=== PATIENT | male | born 1945 | race Caucasian/White ===

== ENCOUNTER 2020-09-08 10:49 | Inpatient (IN) | payer MEDICARE, OTHER ==
--- NOTE | 2020-09-08 11:09 | ED ---
General Adult HPI - General Chief complaint: Shortness of Breath Stated complaint: FELIX Time Seen by Provider: 09/08/20 10:50 Source: patient, EMS, RN notes reviewed, old records reviewed Mode of arrival: EMS Limitations: no limitations - History of Present Illness Initial comments: This is a 74-year-old male who presents emergency department with past medical history significant for ventral hernia. Patient denies any heart history patient denies any breathing problem. Patient stated he felt a little lightheadedness nose EMS was there. Per EMS when fire arrived the patient was having some agonal breathing and they were bagging the patient after about 5 minutes of bagging the patient became much more alert and oriented. Patient denies any chest pain he does state he feels short of breath he denies any fever chills or cough. He states his had COVID 6 weeks ago. Patient denies any abdominal pain he does have a hernia that is chronic. Patient denies any back pain. Patient denies any dysuria or frequency. - Related Data Home Medications Medication Instructions Recorded Confirmed Levothyroxine Sodium [Synthroid] 112 mcg PO DAILY 09/08/20 09/08/20 Spironolactone 100 mg PO DAILY 09/08/20 09/08/20 Zinc 50 mg PO DAILY 09/08/20 09/08/20 Allergies Allergy/AdvReac Type Severity Reaction Status Date / Time cephalexin [From Keflex] Allergy Rash/Hives Verified 09/08/20 12:31 Penicillins Allergy Anaphylaxis Verified 09/08/20 12:31 Review of Systems ROS Statement: Those systems with pertinent positive or pertinent negative responses have been documented in the HPI. ROS Other: All systems not noted in ROS Statement are negative. Past Medical History Past Medical History: Hyperlipidemia History of Any Multi-Drug Resistant Organisms: None Reported Past Psychological History: No Psychological Hx Reported Smoking Status: Never smoker Past Alcohol Use History: None Reported Past Drug Use History: None Reported General Exam - General Exam Comments Initial Comments: GENERAL: Patient is well-developed and well-nourished. Patient is nontoxic and well-hy drated and is in mild distress. Patient is on BiPAP currently ENT: Neck is soft and supple. No significant lymphadenopathy is noted. Oropharynx is clear. Moist mucous membranes. Neck has full range of motion without eliciting any pain. EYES: The sclera were anicteric and conjunctiva were pink and moist. Extraocular movements were intact and pupils were equal round and reactive to light. Eyelids were unremarkable. PULMONARY: Unlabored respirations. Good breath sounds bilaterally. No audible rales rhonchi or wheezing was noted. CARDIOVASCULAR: There is a regular rate and rhythm without any murmurs gallops or rubs. ABDOMEN: Soft and nontender with normal bowel sounds. Patient has a large ventral hernia SKIN: Skin is clear with no lesions or rashes and otherwise unremarkable. NEUROLOGIC: Patient is alert and oriented x3. Cranial nerves II through XII are grossly intact. Motor and sensory are also intact. Normal speech, volume and content. Symmetrical smile. MUSCULOSKELETAL: Normal extremities with adequate strength and full range of motion. No lower extremity swelling or edema. No calf tenderness. LYMPHATICS: No significant lymphadenopathy is noted PSYCHIATRIC: Normal psychiatric evaluation. Limitations: no limitations Course Vital Signs 09/08/20 09/08/20 09/08/20 10:51 11:33 12:00 Temperature 97.5 F L Pulse Rate 49 L 52 L 52 L Respiratory 22 22 26 H Rate Blood Pressure 136/62 115/55 119/58 O2 Sat by Pulse 93 L 97 97 Oximetry 09/08/20 09/08/20 09/08/20 12:30 13:00 13:30 Temperature Pulse Rate 52 L 51 L 40 L Respiratory 31 H 28 H 26 H Rate Blood Pressure 128/63 122/61 111/65 O2 Sat by Pulse 98 95 58 L Oximetry 09/08/20 09/08/20 13:50 14:01 Temperature Pulse Rate 81 47 L Respiratory 22 20 Rate Blood Pressure 83/55 105/49 O2 Sat by Pulse 43 L 84 L Oximetry Procedures - Intubation Sedative: Versed Paralytic: Succinylcholine Laryngoscope: Lopez Size: 3 ET Tube Size: 8 ET Tube Uncuffed: No Tube Secured Location: teeth Tube Placement Confirmation: visualized tube passing through cords, equal breath sounds bilaterally, no breath sounds over epigastrium, confirmation by capnometry Patient Tolerated Procedure: well Intubation Complications: none - Sepsis Sepsis Focused Exam #1 Time Sepsis Criteria Met: : Sepsis Focused Exam Date: 09/08/20 Sepsis Focused Exam Time: 13:21 Sepsis Focused Exam Complete: Yes Vital Signs & RN Notes Reviewed: Yes Capillary Refill: > 2 Seconds: Fingers Peripheral Pulses: Normal: Radial (R) Skin Color: Normal for Patient Respiratory Exam: normal lung sounds Cardiovascular Exam: regular rate, bradycardia Medical Decision Making - Medical Decision Making EKG shows a junctional rhythm at 40 bpm MN interval is 112 QRS is 498 QTC is 444. EKG shows no ST segment elevation or depression Chest x-ray shows bilateral pneumonia with pleural effusion and some pulmonary edema. Patient is septic I started the patient on Levaquin. I also gave the patient 2500 mL of fluid. I spoke with sound physicians agreed to admit the patient admitted the patient I continued Levaquin on the floor. Patient was admitted and sound physician's came down and saw the patient. At 1335 hrs. called into the room because the patient's heart rate dropped I did an EKG EKG showed a sinus rhythm however it was complete heart block at a rate of 36 bpm QRS is 114 QT interval is 586 QTC is 453. Patient's EKG shows no ST segment elevation or depression. At this point time I tried atropine and started the patient on a dopamine drip. Patient began to be oxygenate and become altered mentally so I placed the patient in the trauma bay and intubated the patient. - Lab Data Result diagrams: 09/08/20 11:05 09/08/20 11:27 Lab Results 09/08/20 09/08/20 09/08/20 Range/Units 11:05 11:07 11:27 WBC 34.6 H (3.8-10.6) k/uL RBC 4.87 (4.30-5.90) m/uL Hgb 15.3 (13.0-17.5) gm/dL Hct 49.5 (39.0-53.0) % MCV 101.5 H (80.0-100.0) fL MCH 31.4 (25.0-35.0) pg MCHC 30.9 L (31.0-37.0) g/dL RDW 13.8 (11.5-15.5) % Plt Count 320 (150-450) k/uL MPV 8.0 Neutrophils % (Manual) 77 % Band Neuts % (Manual) 5 % Lymphocytes % (Manual) 14 % Monocytes % (Manual) 4 % Metamyelocytes % 1 % Myelocytes % 1 % Neutrophils # (Manual) 28.30 H (1.3-7.7) k/uL Lymphocytes # (Manual) 4.84 H (1.0-4.8) k/uL Monocytes # (Manual) 1.38 H (0-1.0) k/uL Metamyelocytes # (Man) 0.35 H (0) k/uL Myelocytes # (Manual) 0.35 H (0) k/uL Nucleated RBCs 0 (0-0) /100 WBC Manual Slide Review Performed Toxic Vacuolation Present Hypochromasia Slight Macrocytosis Slight PT 10.7 (9.0-12.0) sec INR 1.0 (<1.2) APTT 25.7 (22.0-30.0) sec Sodium (137-145) mmol/L Potassium (3.5-5.1) mmol/L Chloride (98-107) mmol/L Carbon Dioxide (22-30) mmol/L Anion Gap mmol/L BUN (9-20) mg/dL Creatinine (0.66-1.25) mg/dL Est GFR (CKD-EPI)AfAm (>60 ml/min/1.73 sqM) Est GFR (CKD-EPI)NonAf (>60 ml/min/1.73 sqM) Glucose (74-99) mg/dL Lactic Ac Sepsis Rflx Plasma Lactic Acid Romain (0.7-2.0) mmol/L Calcium (8.4-10.2) mg/dL Magnesium (1.6-2.3) mg/dL Total Bilirubin (0.2-1.3) mg/dL AST (17-59) U/L ALT (4-49) U/L Alkaline Phosphatase (38-126) U/L Troponin I (0.000-0.034) ng/mL NT-Pro-B Natriuret Pep pg/mL Total Protein (6.3-8.2) g/dL Albumin (3.5-5.0) g/dL Coronavirus (PCR) Not Detected (Not Detectd) 09/08/20 09/08/20 09/08/20 Range/Units 11:27 11:27 11:27 WBC (3.8-10.6) k/uL RBC (4.30-5.90) m/uL Hgb (13.0-17.5) gm/dL Hct (39.0-53.0) % MCV (80.0-100.0) fL MCH (25.0-35.0) pg MCHC (31.0-37.0) g/dL RDW (11.5-15.5) % Plt Count (150-450) k/uL MPV Neutrophils % (Manual) % Band Neuts % (Manual) % Lymphocytes % (Manual) % Monocytes % (Manual) % Metamyelocytes % % Myelocytes % % Neutrophils # (Manual) (1.3-7.7) k/uL Lymphocytes # (Manual) (1.0-4.8) k/uL Monocytes # (Manual) (0-1.0) k/uL Metamyelocytes # (Man) (0) k/uL Myelocytes # (Manual) (0) k/uL Nucleated RBCs (0-0) /100 WBC Manual Slide Review Toxic Vacuolation Hypochromasia Macrocytosis PT (9.0-12.0) sec INR (<1.2) APTT (22.0-30.0) sec Sodium (137-145) mmol/L Potassium (3.5-5.1) mmol/L Chloride (98-107) mmol/L Carbon Dioxide (22-30) mmol/L Anion Gap mmol/L BUN (9-20) mg/dL Creatinine (0.66-1.25) mg/dL Est GFR (CKD-EPI)AfAm (>60 ml/min/1.73 sqM) Est GFR (CKD-EPI)NonAf (>60 ml/min/1.73 sqM) Glucose (74-99) mg/dL Lactic Ac Sepsis Rflx Plasma Lactic Acid Romain 6.9 H* (0.7-2.0) mmol/L Calcium (8.4-10.2) mg/dL Magnesium (1.6-2.3) mg/dL Total Bilirubin (0.2-1.3) mg/dL AST (17-59) U/L ALT (4-49) U/L Alkaline Phosphatase (38-126) U/L Troponin I 0.144 H* (0.000-0.034) ng/mL NT-Pro-B Natriuret Pep 34184 pg/mL Total Protein (6.3-8.2) g/dL Albumin (3.5-5.0) g/dL Coronavirus (PCR) (Not Detectd) 12/26/20 12/26/20 Range/Units 11:27 11:54 WBC (3.8-10.6) k/uL RBC (4.30-5.90) m/uL Hgb (13.0-17.5) gm/dL Hct (39.0-53.0) % MCV (80.0-100.0) fL MCH (25.0-35.0) pg MCHC (31.0-37.0) g/dL RDW (11.5-15.5) % Plt Count (150-450) k/uL MPV Neutrophils % (Manual) % Band Neuts % (Manual) % Lymphocytes % (Manual) % Monocytes % (Manual) % Metamyelocytes % % Myelocytes % % Neutrophils # (Manual) (1.3-7.7) k/uL Lymphocytes # (Manual) (1.0-4.8) k/uL Monocytes # (Manual) (0-1.0) k/uL Metamyelocytes # (Man) (0) k/uL Myelocytes # (Manual) (0) k/uL Nucleated RBCs (0-0) /100 WBC Manual Slide Review Toxic Vacuolation Hypochromasia Macrocytosis PT (9.0-12.0) sec INR (<1.2) APTT (22.0-30.0) sec Sodium 128 L (137-145) mmol/L Potassium 4.8 (3.5-5.1) mmol/L Chloride 98 (98-107) mmol/L Carbon Dioxide 11 L (22-30) mmol/L Anion Gap 19 mmol/L BUN 30 H (9-20) mg/dL Creatinine 2.24 H (0.66-1.25) mg/dL Est GFR (CKD-EPI)AfAm 32 (>60 ml/min/1.73 sqM) Est GFR (CKD-EPI)NonAf 28 (>60 ml/min/1.73 sqM) Glucose 269 H (74-99) mg/dL Lactic Ac Sepsis Rflx Y Plasma Lactic Acid Romain (0.7-2.0) mmol/L Calcium 9.2 (8.4-10.2) mg/dL Magnesium 2.3 (1.6-2.3) mg/dL Total Bilirubin 1.0 (0.2-1.3) mg/dL AST 65 H (17-59) U/L ALT 53 H (4-49) U/L Alkaline Phosphatase 101 (38-126) U/L Troponin I (0.000-0.034) ng/mL NT-Pro-B Natriuret Pep pg/mL Total Protein 7.2 (6.3-8.2) g/dL Albumin 3.9 (3.5-5.0) g/dL Coronavirus (PCR) (Not Detectd) Critical Care Time Critical Care Time: Yes Total Critical Care Time: 50 Disposition Clinical Impression: Pneumonia, Pulmonary edema, Elevated troponin, Sepsis, Third degree heart block, Respiratory distress Disposition: ADMITTED IP TO THIS HOSP Time of Disposition: 13:19
[2020-09-08 11:20] LABS: HCT 49.5 % (39.0-53.0); HGB 15.3 gm/dL (13.0-17.5); Hypochromasia Slight; MCH 31.4 pg (25.0-35.0); MCHC 30.9 g/dL (31.0-37.0); MCV 101.5 fL (80.0-100.0); Macrocytosis Slight; Platelet Count 320 k/uL (150-450); RBC 4.87 m/uL (4.30-5.90); RDW 13.8 % (11.5-15.5); WBC 34.6 k/uL (3.8-10.6)
[2020-09-08 11:37] LABS: Band Neutrophils % 5 %; Lymphocytes # (M) 4.84 k/uL (1.0-4.8); Metamyelocytes # (M) 0.35 k/uL (0); Metamyelocytes % 1 %; Monocytes # (M) 1.38 k/uL (0-1.0); Myelocytes # (M) 0.35 k/uL (0); Myelocytes % 1 %; Neutrophils % (M) 77 %; Nucleated Red Blood Cells 0 /100 WBC (0-0); Total Cells Counted 200
[2020-09-08 11:38] LABS: Toxic Vacuolation Present
--- NOTE | 2020-09-08 11:41 | XR ---
EXAMINATION TYPE: XR chest 1V portable DATE OF EXAM: 09/08/2020 Comparison: None Clinical History: 74-year-old male shortness of breath, difficulty breathing Findings: Heart normal size. Patchy and confluent bilateral airspace opacity, left greater than right. No sizab le effusion. Impression: Patchy and confluent left greater than right bilateral airspace disease. Correlate for pulmonary hussain a or multifocal pneumonia.
[2020-09-08 11:51] LABS: Albumin 3.9 g/dL (3.5-5.0); Calcium 9.2 mg/dL (8.4-10.2); Magnesium 2.3 mg/dL (1.6-2.3); Potassium 4.8 mmol/L (3.5-5.1); Total Protein 7.2 g/dL (6.3-8.2)
[2020-09-08 11:54] LABS: Partial Thromboplastin Time 25.7 sec (22.0-30.0); Prothrombin Time 10.7 sec (9.0-12.0)
[2020-09-08] MEDS ORDERED: SODIUM CHLORIDE 0.9% 2,500 ML IV STA (12:00)
[2020-09-08] MEDS ORDERED: LEVOFLOXACIN 750MG-D5W PMX 750 MG in DEXTROSE/WATER 1 150ML.BAG IVPB STA (12:14)
[2020-09-08] MEDS ORDERED: LEVOFLOXACIN 750MG-D5W PMX 750 MG in DEXTROSE/WATER 1 150ML.BAG IVPB SCH (12:15)
[2020-09-08] MEDS ORDERED: FUROSEMIDE 10 MG/ML 2 ML VIAL IV ONE (12:46)
[2020-09-08] MEDS ORDERED: PNEUMONIA PROTOCOL UTILIZED 1 EACH MISC PO PRN (13:32)
[2020-09-08] MEDS ORDERED: VANCOMYCIN IV PER PHARMACY 1 EACH MISC MISCELLANE PRN (13:32)
[2020-09-08] MEDS ORDERED: DOPamine DRIP 800 MG in WATER FOR INJECTION 1 250ML.BAG IV SCH (13:45)
[2020-09-08] MEDS ORDERED: ATROPINE SULFATE 0.1 MG/ML 10ML SYRINGE IV STA (13:48)
[2020-09-08] MEDS ORDERED: SUCCINYLCHOLINE CHLORIDE VIAL 200 MG/10 ML VIAL IV STA (13:55)
--- NOTE | 2020-09-08 14:18 | XR ---
EXAMINATION TYPE: XR chest 1V portable DATE OF EXAM: 09/08/2020 COMPARISON: Today HISTORY: Short of breath TECHNIQUE: FINDINGS: There is severe pulmonary airspace edema around the pulmonary dimitrios. Heart size is normal. E ndotracheal tube is 2.5 cm from the neftali. There is nasogastric tube in the stomach. IMPRESSION: Severe pulmonary edema is increased compared to exam 3 hours ago.
[2020-09-08] MEDS ORDERED: MIDAZOLAM 1 MG/ML 5 ML VIAL IV STA (14:26)
[2020-09-08] MEDS: NOREPINEPHRINE 4 MG in SODIUM CHLORIDE 0.9% 250 ML IV SCH (14:41)
[2020-09-08 14:57] LABS: ABG Base Excess -18.6 mmol/L; ABG HCO3 14 mmol/L (21-25); ABG Oxygen Saturation 64.7 % (94-97); ABG PCO2 61 mmHg (35-45); ABG TCO2 15 mmol/L (19-24); Allen Test Performed? Yes
[2020-09-08 15:03] LABS: ABG PH 6.95 (7.35-7.45); ABG PO2 53 mmHg (83-108)
[2020-09-08] MEDS ORDERED: LIDOCAINE 1% INJ 10MG/ML (20 ML MDV) ONE (15:04)
[2020-09-08] MEDS ORDERED: IV FLUID CONTINUATION 900 ML IV ONE (15:30)
[2020-09-08] MEDS ORDERED: DEXTROSE 5% IN WATER 1,000 ML with SODIUM BICARB (1 MEQ/ML) 150 ML IV ONE (15:30)
[2020-09-08] MEDS ORDERED: fentaNYL (PF) 50 MCG/ML 2 ML AMP ONE (15:42)
[2020-09-08] MEDS ORDERED: MIDAZOLAM 2 MG/2 ML VIAL IVP ONE (15:43)
[2020-09-08] MEDS ORDERED: fentaNYL (PF) 50 MCG/ML 2 ML AMP IVP ONE (15:43)
[2020-09-08] MEDS ORDERED: LIDOCAINE 1% INJ 10MG/ML (20 ML MDV) SQ ONE (15:48)
[2020-09-08] MEDS ORDERED: propofoL 100 ML IV ONE (15:59)
[2020-09-08 16:03] LABS: Allen Test Performed? Yes
[2020-09-08 16:04] LABS: ABG Base Excess -20.5 mmol/L; ABG HCO3 14 mmol/L (21-25); ABG Oxygen Saturation 66.2 % (94-97); ABG PCO2 70 mmHg (35-45)
[2020-09-08 16:05] LABS: ABG PH 6.94 (7.35-7.45); ABG PO2 59 mmHg (83-108)
[2020-09-08] MEDS ORDERED: SODIUM CHLORIDE 0.9% 500 ML 500 ML IV ONE (16:05)
--- NOTE | 2020-09-08 16:25 | P.HPIM ---
History of Present Illness H&P Date: 09/08/20 Chief Complaint: CC: unresponsive episode Patient is a 74-year-old male with a past medical history of ventricular hernia and hypothyroidism who was brought into the ED for shortness of breath. EMS found the patient unresponsive when they arrived with agonal breathing. They started bagging him after which patient became responsive. Patient states that before he passed out he felt slightly lightheaded and was having issues with his sinus infection. Patient denied any significant shortness of breath prior to the episode of syncope. I spoke to his who states that he was coughing a lot this morning and he appeared short of breath and she had asked him if he should go to the urgent care and patient had refused. She states that when she found him unresponsive there was no tonic-clonic like activity and his eyes were not rolled back, however, he was having a difficult time breathing. She states that 6 weeks ago she was found to have COVID 19 and she is still recovering from the symptoms. In the ED patient chest x-ray showed bilateral infiltrates concerning for multifocal pneumonia versus pulmonary edema. Patient denies any lower extremity swelling, orthopnea or PND. He denies any chest pain. Patient's lab work showed WBC 15.3, creatinine 2.2, troponin 0.144, BNP 02156, sodium 128 and bicarb 11. ED initiated fluids as per sepsis guidelines. Addendum: Shortly after I left the room patient became unresponsive again and required intubation. Patient also became bradycardic with heart rate in the 30s and also hypertensive. He was started on dopamine drip and norepinephrine. Fortunately cardiology was in the emergency room and patient was taken emergently to the cardiac cath lab technologist for a pacemaker as he was found to have third-degree AV block. His chest x-ray after intubation showed worsening opacities consistent with pulmonary edema. Review of Systems 10 ROS reviewed and are negative except as noted in HPI Past Medical History Past Medical History: Hyperlipidemia History of Any Multi-Drug Resistant Organisms: None Reported Past Psychological History: No Psychological Hx Reported Smoking Status: Never smoker Past Alcohol Use History: None Reported Past Drug Use History: None Reported Medications and Allergies Home Medications Medication Instructions Recorded Confirmed Type Levothyroxine Sodium [Synthroid] 112 mcg PO DAILY 09/08/20 09/08/20 History Spironolactone 100 mg PO DAILY 09/08/20 09/08/20 History Zinc 50 mg PO DAILY 09/08/20 09/08/20 History Allergies Allergy/AdvReac Type Severity Reaction Status Date / Time cephalexin [From Keflex] Allergy Rash/Hives Verified 09/08/20 12:31 Penicillins Allergy Anaphylaxis Verified 09/08/20 12:31 Physical Exam Osteopathic Statement: *. No significant issues noted on an osteopathic structural exam other than those noted in the History and Physical/Consult. Vitals: Vital Signs Temp Pulse Resp BP Pulse Ox 09/08/20 14:01 47 L 20 105/49 84 L 09/08/20 13:50 81 22 83/55 43 L 09/08/20 13:30 40 L 26 H 111/65 58 L 09/08/20 13:00 51 L 28 H 122/61 95 09/08/20 12:30 52 L 31 H 128/63 98 09/08/20 12:00 52 L 26 H 119/58 97 09/08/20 11:33 52 L 22 115/55 97 09/08/20 10:51 97.5 F L 49 L 22 136/62 93 L Intake and Output 09/07/20 09/08/20 09/08/20 22:59 06:59 14:59 Other: Weight 72.575 kg General: [Alert and oriented, well nourished, moderate respiratory distress]. Eye: [PERRL, EOMI, normal conjunctiva]. HENT: [Normocephalic, clear tympanic membranes, normal hearing, no scleral icterus, no sinus tenderness]. Neck: [Supple, non-tender, no carotid bruits, no JVD, no lymphadenopathy]. Lungs: [Bilateral rhonchi]. Heart: [Normal rate, regular rhythm, no murmur, gallop or edema]. Abdomen: [Soft, large ventricular hernia]. Musculoskeletal: [Normal range of motion and strength, no tenderness or swelling]. Skin: [Skin is warm, dry and pink, no rashes or lesions]. Neurologic: [Awake, alert, and oriented X3, CN II-XII intact]. Psychiatric: [Cooperative, appropriate mood and affect]. Results CBC & Chem 7: 09/08/20 11:05 09/08/20 11:27 Labs: Abnormal Lab Results - Last 24 Hours (Table) 09/08/20 09/08/20 09/08/20 Range/Units 11:05 11:27 11:27 WBC 34.6 H (3.8-10.6) k/uL MCV 101.5 H (80.0-100.0) fL MCHC 30.9 L (31.0-37.0) g/dL Neutrophils # (Manual) 28.30 H (1.3-7.7) k/uL Lymphocytes # (Manual) 4.84 H (1.0-4.8) k/uL Monocytes # (Manual) 1.38 H (0-1.0) k/uL Metamyelocytes # (Man) 0.35 H (0) k/uL Myelocytes # (Manual) 0.35 H (0) k/uL Sodium (137-145) mmol/L Carbon Dioxide (22-30) mmol/L BUN (9-20) mg/dL Creatinine (0.66-1.25) mg/dL Glucose (74-99) mg/dL Plasma Lactic Acid Romain 6.9 H* (0.7-2.0) mmol/L AST (17-59) U/L ALT (4-49) U/L Troponin I 0.144 H* (0.000-0.034) ng/mL 09/08/20 Range/Units 11:27 WBC (3.8-10.6) k/uL MCV (80.0-100.0) fL MCHC (31.0-37.0) g/dL Neutrophils # (Manual) (1.3-7.7) k/uL Lymphocytes # (Manual) (1.0-4.8) k/uL Monocytes # (Manual) (0-1.0) k/uL Metamyelocytes # (Man) (0) k/uL Myelocytes # (Manual) (0) k/uL Sodium 128 L (137-145) mmol/L Carbon Dioxide 11 L (22-30) mmol/L BUN 30 H (9-20) mg/dL Creatinine 2.24 H (0.66-1.25) mg/dL Glucose 269 H (74-99) mg/dL Plasma Lactic Acid Romain (0.7-2.0) mmol/L AST 65 H (17-59) U/L ALT 53 H (4-49) U/L Troponin I (0.000-0.034) ng/mL Assessment and Plan Assessment: #Unresponsive episode with agonal breathing likely due to hypoxia versus bradycardia #Third degree A-V block bradycardia #Acute hypoxic respiratory failure/ventilatory dependent respiratory failure #Bilateral consolidation likely due to pneumonia and pulmonary edema pulmonary edema #Septic shock with lactic acid 6.9. #Elevated BNP -We'll start patient on broad-spectrum antibiotics with IV vancomycin, aztreonam (patient has penicillin and cephalosporin ALLERGY) and Flagyl -COVID 19 PCR is negative -Check sputum culture, follow blood culture -Repeat lactic acid is 5.3 -Gyroscope Technician to manage vent -Patient currently on norepinephrine and dopamine -> wean pressors as tolerated -Patient emergently taken to cardiac cath lab technologist for pacemaker placement -Check echocardiogram to rule out heart failure (clinically patient does not appear to be in heart failure as patient has no JVD, no lower extremity edema, denies PND or orthopnea, no pleural effusions on chest x-ray) -Hold lasix due to hypotension -Patient received 30 mL/kg as per severe sepsis guidelines in the ED after which pulmonary edema worsened. We'll discontinue resuscitation fluids -I have discussed the plan with the net programmer analyst #Elevated troponin likely due to demand ischemia -Trend troponin -EKG shows right bundle branch block -Cardiology on board #Acute kidney injury -Hold fluids due to worsening pulmonary edema -Hold home dose spironolactone -Nephrology consult #Metabolic acidosis likely due to acute kidney injury and lactic acidosis -Trend BMP -Patient started on a bicarb drip -Nephrology consult #Hyponatremia likely prerenal -Hold fluids due to worsening pulmonary edema -Nephrology consult #Hyperglycemia with no known history of diabetes -Likely stress-induced -Check hemoglobin A1c #Ventricular hernia -Outpatient follow-up CODE STATUS:full code DVT prophylaxis: heparin SC Discussed with: Patient, ER, rn Anticipated length of stay > than [address]: home A total of 75 minutes was spent on the care of this complex patient more than 50% of the time was spent in counseling and care coordination.
--- NOTE | 2020-09-08 16:30 | P.CRDCN ---
History of Present Illness History of present illness: HISTORY OF PRESENTING ILLNESS This is a pleasant 74-year-old male past medical history significant for hypertension only on spironolactone and abdominal ventral hernia. Patient was unresponsive on a ventilator and therefore history is supplied by chart and by . Apparently patient has no cardiac history, no history of coronary artery disease, [place], heart failure. states patient has been feeling short of breath over the last approximately week which they have thought was due to sinus infection with patient having a mild cough. Patient was then found to be somewhat confused earlier and initially thought he was having a stroke as he was unresponsive. Apparently patient had been feeling lightheaded and EMS arrived with patient having agonal breathing and EMS performed bagging for approximately 5 minutes. In the emergency department he denied any chest pain or pressure and no fevers or chills. Patient's states he was having a mild cough which they attributed to sinus infection. Patient was found to be hypoxic and placed on BiPAP and given IV fluids for pneumonia which was identified on chest x-ray. Patient had worsening bilateral infiltrates after approximately 1.5 L bolus. Patient was then noted to be bradycardic with third-degree heart block and therefore cardiology was consulted. Patient was placed on dopamine drip without much improvement in heart rate. DIAGNOSTICS EKG reveals sinus rhythm with second-degree AV block initially with left axis deviation, Q waves inferiorly and right bundle branch block. Repeat EKG shows sinus rhythm with third-degree junctional right bundle branch block. Chest xray initial chest x-ray shows patchy and confluent left greater than right bilateral airspace disease. Repeat chest x-ray shows diffuse pulmonary edema increased from exam 3 hours previous. Laboratory reviewed, white blood cell count 34.6, hemoglobin 15.3, platelets 320, sodium 128, bicarbonate 11, creatinine 2.2, lactic acid 6.9, AST 65, ALP 53, troponin 0.14, proBNP 14,300, romero virus not detected, ABG shows pH 6.95, pCO2 61, P O2 53, bicarb 14, oxygen saturation 64.7. Current cardiac medications include dopamine drip, heparin 5000 units subcutaneously every 12 hours, Levophed drip. REVIEW OF SYSTEMS At the time of my exam: Unable to perform full review of systems secondary to patient being on a ventilator PHYSICAL EXAMINATION Blood pressure 100/40 heart rate 51 (HR's 30-40's on telemetry) afebrile and varying oxygen saturation on 100% FiO2 (70-90's), PEEP of 15. CONSTITUTIONAL: Ill-appearing, cool extremities with mild cyanosis of extremities HEENT: Head is normocephalic. Pupils are equal, round. Sclerae anicteric. Mucous membranes of the mouth are moist. No JVD. No carotid bruit. CHEST EXAMINATION: Diffuse rhonchi bilaterally HEART EXAMINATION: Regular rate, bradycardic, S1, S2 heard. No murmurs, gallops or rub. ABDOMEN: Soft, nontender. Positive bowel sounds. + Large ventral hernia EXTREMITIES: 2+ peripheral pulses, no lower extremity edema and no calf tenderness, + cool extremities and mild cyanosis of extremities. NEUROLOGIC EXAMINATION: sedated on ventilator however arousable ASSESSMENT 1. Third-degree heart block with junctional rhythm in the 30s and 40s. Likely exacerbated by severe metabolic derangements 2. Acute hypoxemic respiratory failure which appears mainly related to pneumonia 3. Elevated proBNP likely component of acute kidney injury plus or minus rule out a component of heart failure 4. Elevated troponin, likely type II mechanism from sepsis 5. Lactic acidosis 6. Septic shock on vasopressors 7. Hyponatremia 8. Acute kidney injury 9. History of hypertension, currently hypotensive 10. Episode of unresponsiveness, altered mental status. Unclear if true syncopal episode and appears more related to hypoxia when EMS arrived. PLAN Third-degree heart block, initially second-degree heart block. We will get a repeat electrolytes to rule out a component of hyperkalemia which may be progressive with his acute kidney injury. Patient however is somewhat bradycardic and hypotensive and therefore discussed with patient's regarding placement of CVP and they are agreeable. Recommend placement of CVP and monitoring. Third-degree heart block may be related to numerous metabolic derangements. If there is a component of hyperkalemia, would recommend calcium gluconate. His initial presenting altered mental status which EMS was called for does not seem classic for a syncopal episode and likely more related to hypoxic episode. Elevated troponins likely type II mechanism. Bedside echo performed by myself shows preserved ejection fraction 60%. We will check a formal 2-D echo to further evaluate. Patient with worsened respiratory status after IV fluids were given. We will perform a right heart catheterization at the same time as his TVP placement to evaluate for left and right sided pressures and whether this is more ARDS related or heart failure. Further recommendations to follow. Prognosis guarded. Past Medical History Past Medical History: Hyperlipidemia History of Any Multi-Drug Resistant Organisms: None Reported Past Psychological History: No Psychological Hx Reported Smoking Status: Never smoker Past Alcohol Use History: None Reported Past Drug Use History: None Reported Medications and Allergies Home Medications Medication Instructions Recorded Confirmed Type Levothyroxine Sodium [Synthroid] 112 mcg PO DAILY 09/08/20 09/08/20 History Spironolactone 100 mg PO DAILY 09/08/20 09/08/20 History Zinc 50 mg PO DAILY 09/08/20 09/08/20 History Allergies Allergy/AdvReac Type Severity Reaction Status Date / Time cephalexin [From Keflex] Allergy Rash/Hives Verified 09/08/20 12:31 Penicillins Allergy Anaphylaxis Verified 09/08/20 12:31 Physical Exam Vitals: Vital Signs Temp Pulse Resp BP Pulse Ox 09/08/20 14:58 51 L 20 101/42 89 L 09/08/20 14:56 51 L 20 100/40 76 L 09/08/20 14:50 48 L 20 96/24 70 L 09/08/20 14:40 47 L 16 90/53 70 L 09/08/20 14:39 46 L 16 75 L 09/08/20 14:16 46 L 16 87/51 09/08/20 14:01 47 L 14 105/49 84 L 09/08/20 13:50 81 14 83/55 43 L 09/08/20 13:30 40 L 26 H 111/65 58 L 09/08/20 13:00 51 L 28 H 122/61 95 09/08/20 12:30 52 L 31 H 128/63 98 09/08/20 12:00 52 L 26 H 119/58 97 09/08/20 11:33 52 L 22 115/55 97 09/08/20 10:51 97.5 F L 49 L 22 136/62 93 L Intake and Output 09/08/20 09/08/20 09/08/20 06:59 14:59 22:59 Intake Total 5.136 Balance 5.136 Intake: Intake, IV Titration 5.136 Amount DOPamine DRIP 800 mg In 3.062 Water For Injection 1 250ml.bag @ 5 MCG/KG/MIN 6.804 mls/hr IV .Q24H [facility] Rx#:[id number] Norepinephrine 4 mg In 2.074 Sodium Chloride 0.9% 250 ml @ 0.05 MCG/KG/MIN 13. 826 mls/hr IV .[id number] [facility] Rx#:[id number] Other: Weight 72.575 kg Results 09/08/20 11:05 09/08/20 11:27 Cardiac Enzymes 09/08/20 09/08/20 Range/Units 11:27 11:27 AST 65 H (17-59) U/L Troponin I 0.144 H* (0.000-0.034) ng/mL Coagulation 09/08/20 Range/Units 11:27 PT 10.7 (9.0-12.0) sec APTT 25.7 (22.0-30.0) sec CBC 09/08/20 Range/Units 11:05 WBC 34.6 H (3.8-10.6) k/uL RBC 4.87 (4.30-5.90) m/uL Hgb 15.3 (13.0-17.5) gm/dL Hct 49.5 (39.0-53.0) % Plt Count 320 (150-450) k/uL Comprehensive Metabolic Panel 09/08/20 Range/Units 11:27 Sodium 128 L (137-145) mmol/L Potassium 4.8 (3.5-5.1) mmol/L Chloride 98 (98-107) mmol/L Carbon Dioxide 11 L (22-30) mmol/L BUN 30 H (9-20) mg/dL Creatinine 2.24 H (0.66-1.25) mg/dL Glucose 269 H (74-99) mg/dL Calcium 9.2 (8.4-10.2) mg/dL AST 65 H (17-59) U/L ALT 53 H (4-49) U/L Alkaline Phosphatase 101 (38-126) U/L Total Protein 7.2 (6.3-8.2) g/dL Albumin 3.9 (3.5-5.0) g/dL Current Medications Generic Name Dose Route Start Last Admin Trade Name Freq PRN Reason Stop Dose Admin Heparin Sodium (Porcine) 5,000 unit 09/08/20 21:00 Heparin Sodium,Porcine 5,000 Unit/Ml 1 Ml Vial SQ Q12HR [facility] Aztreonam 2 gm/ Sodium 100 mls @ 33.3 mls/hr 09/08/20 16:00 Chloride IVPB 09/15/20 16:01 Q8HR [facility] Protocol Metronidazole 500 mg/ IV 100 mls @ 100 mls/hr 09/08/20 15:00 Solution IVPB Q8H [facility] Dopamine HCl/Dextrose 800 mg/ 250 mls @ 6.804 mls/hr 09/08/20 13:45 09/08/20 14:22 IV Solution IV 20 mcg/kg/min .Q24H [facility] 27.216 mls/hr Titration Protocol 5 MCG/KG/MIN Levofloxacin 750 mg/ IV 150 mls @ 100 mls/hr 09/09/20 13:00 Solution IVPB Q24H [facility] Norepinephrine Bitartrate 4 mg 254 mls @ 13.826 mls/hr 09/08/20 14:30 09/08/20 14:50 / Sodium Chloride IV 0.07 mcg/kg/min .[id number] [facility] 19.356 mls/hr Titration Protocol 0.05 MCG/KG/MIN Vancomycin HCl 1,250 mg/ 250 mls @ 125 mls/hr 09/08/20 15:00 Sodium Chloride IVPB Q24H [facility] Sodium Bicarbonate 150 ml/ 1,150 mls @ 100 mls/hr 09/08/20 15:30 Dextrose/Water IV 09/09/20 02:59 .[id number] ONE Levothyroxine Sodium 112 mcg 09/09/20 06:30 Levothyroxine 112 Mcg Tab PO DAILY@0630 [facility] Miscellaneous Information 1 each 09/08/20 13:32 Pneumonia Protocol Utilized 1 Each Misc PO ONCE PRN Per Protocol Intake and Output 09/08/20 09/08/20 09/08/20 06:59 14:59 22:59 Intake Total 5.136 Balance 5.136 Intake: Intake, IV Titration 5.136 Amount DOPamine DRIP 800 mg In 3.062 Water For Injection 1 250ml.bag @ 5 MCG/KG/MIN 6.804 mls/hr IV .Q24H [facility] Rx#:[id number] Norepinephrine 4 mg In 2.074 Sodium Chloride 0.9% 250 ml @ 0.05 MCG/KG/MIN 13. 826 mls/hr IV .[id number] [facility] Rx#:[id number] Other: Weight 72.575 kg Patient Weight 09/09/20 06:59 Weight 72.575 kg 09/08/20 11:05 09/08/20 11:27
--- NOTE | 2020-09-08 16:42 | P.CARDCATH ---
Description of Procedure: PROCEDURES PERFORMED: Right heart catheterization, ultrasound-guided right internal jugular vein access, placement of temporary venous pacemaker INDICATION: Third-degree heart block, shock, pulmonary edema HISTORY: Patient is a pleasant 74-year-old male with only history of hypertension and ventral hernia who presented with shortness of breath and was found to have bilateral infiltrates on x-ray. Patient had decompensation with worsening respiratory status as well as was noted to have third-degree heart block and hypotension. Therefore a transvenous pacemaker placement as well as right heart catheterization were recommended. CONSENT:I have discussed the risks, benefits and alternative therapies for the above-mentioned procedure and for both sedation/analgesia as well as necessary blood product administration, if indicated, as they pertain to his . She has indicated understanding and acceptance of the risks and procedures discussed. PROCEDURE: After the risks, benefits and alternatives of the above mentioned procedure explained in detail with the patient's , informed consent was obtained. Patient was taken to the catheterization lab and prepped and draped in usual fashion. 1% lidocaine was used to anesthetize the right internal jugular area. A 6-[place] sheath was placed in the right internal jugular vein using modified Seldinger technique and ultrasound guidance. Next, right heart catheterization was performed with a 6-[place] catheter which was advanced into the right atrium, right ventricle, pulmonary artery and pulmonary capillary wedge position under fluoroscopy. Pressure measurements were obtained and pulmonary arterial oxygen saturation was obtained. Right heart catheteri zation was performed with patient on 100% FiO2 and 15 of PEEP. The [place] catheter was then removed. Next a 5-[place] temporary venous pacemaker wire was inserted through the sheath and was placed into the right ventricle. Transvenous pacing was performed and pacing parameters were adjusted. The 6-[place] sheath was then sutured in place. The transvenous pacer was noted to be at 31 cm at that sheath. The patient tolerated the procedure well. Patient was transported back to the post catheterization holding area in stable condition. Conscious Sedation: Patient was monitored under the direct supervision of vision of myself for conscious sedation using Versed and fentanyl for a total duration of 23 minutes RIGHT HEART CATHETERIZATION (on 100% FiO2 and 15 PEEP): RA: 9mmHg RV: 19/12mmHg PA: 21/16mmHg PCWP: 14mmHg PA O2 saturation: 59% Arterial pulse ox: 91% FINAL IMPRESSION: 1. Successful placement of TVP via right IJ approach 2. Relatively normal left and right sided pressures (although noted to be on 15 PEEP) PLAN: 1. Continue TVP as needed 2. RHC revealed relatively normal PCWP/left sided pressures (although noted to be on PEEP of 15) suggesting more ARDS type picture. Continue with supportive care.
--- NOTE | 2020-09-08 16:46 | ECHOF ---
Referral Reason:hypoxia, elevated troponin MEASUREMENTS -------- HEIGHT: 177.8 cm WEIGHT: 72.6 kg BP: 83/55 RVIDd: 3.3 cm (< 3.3) IVSd: 0.9 cm (0.6 - 1.1) LVIDd: 3.2 cm (3.9 - 5.3) LVPWd: 1.1 cm (0.6 - 1.1) IVSs: 1.3 cm LVIDs: 2.4 cm LVPWs: 1.2 cm RAP: 5.00 mmHg RVSP: 28.11 mmHg FINDINGS -------- Resting bradycardia (HR<60bpm). Limited Study Pt. on a vent. Patient was scanned in the cathode builder. The left ventricular size is normal. Left ventricular wall thickness is normal. Overall left vent ricular systolic function is normal with, an EF between 55 - 60 %. The right ventricle is normal in size. The left atrium is mildly dilated. The right atrial size is normal. Interatrial and interventricular septum intact. The aortic valve was not well visualized. There is mild aortic valve sclerosis. There is no evide nce of aortic regurgitation. There is no evidence of aortic stenosis. The mitral valve was not well visualized. Mild mitral regurgitation is present. Mild tricuspid regurgitation present. There is no evidence of pulmonary hypertension. The right v entricular systolic pressure, as measured by Doppler, is 28.11mmHg. The pulmonic valve was not well visualized. There is no pericardial effusion. CONCLUSIONS -------- 1. The left ventricular size is normal. 2. Left ventricular wall thickness is normal. 3. Overall left ventricular systolic function is normal with, an EF between 55 - 60 %. 4. The right ventricle is normal in size. 5. The left atrium is mildly dilated. 6. There is mild aortic valve sclerosis. 7. Mild mitral regurgitation is present. 8. Mild tricuspid regurgitation present. SHANK PIECE TACKER: Supriya Bell RDCS
[2020-09-08 17:11] LABS: ABG Base Excess -19.4 mmol/L; ABG HCO3 12 mmol/L (21-25); ABG Oxygen Saturation 91.6 % (94-97); ABG PCO2 44 mmHg (35-45); ABG PO2 87 mmHg (83-108); ABG TCO2 13 mmol/L (19-24); Allen Test Performed? Yes
[2020-09-08 17:16] LABS: ABG PH 7.03 (7.35-7.45)
[2020-09-08] MEDS: AZTREONAM 2 GM in SODIUM CHLORIDE 0.9% 100 ML IVPB SCH ×2 (17:23→23:32)
[2020-09-08] MEDS: VANCOMYCIN 1,250 MG in SODIUM CHLORIDE 0.9% 250 ML IVPB SCH (17:23)
[2020-09-08] MEDS: metroNIDAZOLE-NS PMX 500 MG in SALINE 1 100ML.BAG IVPB SCH ×2 (18:16→23:33)
--- NOTE | 2020-09-08 18:56 | US ---
EXAMINATION TYPE: US renals and bladder DATE OF EXAM: 09/08/2020 COMPARISON: NONE CLINICAL HISTORY: NAN. abnormal labs. ICU patient. Bae catheter EXAM MEASUREMENTS: Right Kidney: 10.2 x 4.0 x 4.9 cm Left Kidney: 9.5 x 4.6 x 4.7 cm Right Kidney: lower cystic lesion - 1.6 x 1.2 x 1.3 cm Left Kidney: No hydronephrosis or prominent masses seen. Limited visualization due to placement of A ED pad. Bladder: Bae. Not visualized due to patient being wrapped in warming blanket . IMPRESSION: No evidence of solid renal mass or obstruction. Small right renal cortical cyst. Urinary bladder not evaluated.
[2020-09-08] MEDS: HEPARIN SODIUM,PORCINE 5,000 UNIT/ML 1 ML VIAL SQ SCH (20:09)
[2020-09-08] MEDS: CHLORHEXIDINE GLUCONATE 15 ML CUP MUCOUS MEM SCH (20:10)
[2020-09-08] MEDS ORDERED: CISATRACURIUM 2 MG/ML 5 ML VIAL IV ONE (23:04)
[2020-09-08] MEDS: CISATRACURIUM 200 MG in SODIUM CHLORIDE 0.9% 180 ML IV SCH (23:31)
[2020-09-08] MEDS: ARTIFICIAL TEARS-HYPROMELLOSE DROPS 15 ML BTL BOTH EYES SCH (23:41)
[2020-09-09 03:46] LABS: Albumin 2.5 g/dL (3.5-5.0); Calcium 6.9 mg/dL (8.4-10.2); Magnesium 1.5 mg/dL (1.6-2.3); Total Bilirubin 0.5 mg/dL (0.2-1.3); Total Protein 5.2 g/dL (6.3-8.2)
[2020-09-09] MEDS: NOREPINEPHRINE 4 MG in SODIUM CHLORIDE 0.9% 250 ML IV SCH ×2 (03:47→08:30)
[2020-09-09] MEDS: ARTIFICIAL TEARS-HYPROMELLOSE DROPS 15 ML BTL BOTH EYES SCH ×6 (03:49→23:03)
[2020-09-09 03:54] LABS: Potassium 4.6 mmol/L (3.5-5.1)
[2020-09-09 04:00] LABS: HCT 46.2 % (39.0-53.0); HGB 14.6 gm/dL (13.0-17.5); MCH 31.9 pg (25.0-35.0); MCHC 31.7 g/dL (31.0-37.0); MCV 100.7 fL (80.0-100.0); Macrocytosis Slight; Mean Platelet Volume 7.6; Platelet Count 239 k/uL (150-450); RBC 4.59 m/uL (4.30-5.90); RDW 13.9 % (11.5-15.5); WBC 41.1 k/uL (3.8-10.6)
[2020-09-09 05:55] LABS: Band Neutrophils % 24 %; Lymphocytes # (M) 2.88 k/uL (1.0-4.8); Metamyelocytes # (M) 0.41 k/uL (0); Metamyelocytes % 1 %; Monocytes # (M) 2.06 k/uL (0-1.0); Neutrophils % (M) 65 %; Nucleated Red Blood Cells 0 /100 WBC (0-0); Total Cells Counted 200
[2020-09-09 05:56] LABS: Anisocytosis (M) Present
[2020-09-09 05:58] LABS: Polychromasia Present
[2020-09-09 06:00] LABS: Toxic Vacuolation Present
[2020-09-09 06:08] LABS: ABG Base Excess -7.5 mmol/L; ABG HCO3 19 mmol/L (21-25); ABG Oxygen Saturation 97.2 % (94-97); ABG PCO2 39 mmHg (35-45); ABG PH 7.29 (7.35-7.45); ABG PO2 88 mmHg (83-108); ABG TCO2 20 mmol/L (19-24); Allen Test Performed? Yes
[2020-09-09] MEDS: LEVOTHYROXINE 112 MCG TAB PO SCH (06:30)
[2020-09-09] MEDS: metroNIDAZOLE-NS PMX 500 MG in SALINE 1 100ML.BAG IVPB SCH ×3 (06:32→22:30)
[2020-09-09] MEDS ORDERED: Magnesium Replacement Protocol 1 EACH MISC MISCELLANE PRN (07:07)
[2020-09-09] MEDS ORDERED: DEXTROSE 5% IN WATER 1,000 ML with SOD BICARB SYR 8.4% (1 MEQ/ML) 150 ML IV SCH (07:30)
--- NOTE | 2020-09-09 07:57 | XR ---
EXAMINATION TYPE: XR chest 1V portable DATE OF EXAM: 09/09/2020 Comparison: 09/08/2020 Clinical History: 74-year-old male Tube placement Findings: ET tube has been pulled back. It is high, just above the level of the clavicles. Advance by 2.5 cm an d reassess at follow-up. Heart normal size. There seems to be a right ventricular pacer lead now. NG tube side hole just below the GE junction. Perihilar and lower lung consolidation. Significant improv ement in aeration in the upper lungs. No sizable effusion on the frontal view. Impression: 1. ET tube has been pulled back. The tip is now above the clavicles. Advance by 2.5 cm and reassess a t follow-up. 2. Continued consolidation now especially perihilar and basilar but with significant interval improve ment in aeration in the upper lungs.
[2020-09-09] MEDS: DEXTROSE 5% IN WATER 1,000 ML with SODIUM BICARB (1 MEQ/ML) 150 ML IV SCH ×3 (08:34→22:31)
[2020-09-09] MEDS: INSULIN ASPART (NovoLOG) 100 UNIT/ML VIAL SQ SCH ×4 (08:39→23:06)
[2020-09-09 09:35] LABS: Glucose,Whole Blood 221 mg/dL (75-99)
--- NOTE | 2020-09-09 10:00 | PN ---
PROGRESS NOTE Trent is a 74-year-old gentleman who is admitted to the hospital with unresponsive. He had to be intubated and placed on ventilator. Subsequently was found to be in complete heart block for which he underwent a temporary transvenous pacemaker. He has pneumonia and hypoxic respiratory failure. He has elevated troponin probably secondary to type 2 myocardial infarction. EXAM: Patient is afebrile. Heart rate is 60 beats per minute. Blood pressure is 110/68, respiratory rate 18, O2 saturation is 99%. Mechanically ventilated with an FiO2 of 60%. Chest exam reveals diminished air entry bilaterally. Heart exam reveals first and second heart sounds. No gallop. Exam of extremities did not reveal any edema. LABS: Show a hemoglobin of 14.6, platelet count is 236, potassium is 4.6, BUN is 29, creatinine is 1.8. AST, ALT are elevated. The patient is paced and the pacemaker is functioning normally. ASSESSMENT: 1. Complete heart block status post temporary pacemaker. 2. Respiratory failure with possible pneumonia. 3. Sepsis. PLAN: Continue with the usual care for temporary pacemaker. We will obtain a 2D echo to evaluate LV function. Depending upon the patient's overall improvement, he is someone who may need a permanent pacemaker down the road. MMODL / IJN: [id number] /
--- NOTE | 2020-09-09 10:00 | PCN ---
PROCEDURE NOTE PROCEDURE PERFORMED: Left internal jugular triple-lumen catheter. OPERATORS: Dr. Adames and Dr. Sandoval. PREOP DIAGNOSIS: Administration of fluids and pressors. POSTOP DIAGNOSIS: Administration of fluids and pressors. TRIPLE LUMEN CATHETER PLACEMENT: Indication: Hemodynamic monitoring/Intravenous access. A time-out was completed verifying correct patient, procedure, site, positioning, and implant(s) or special equipment if applicable. The patient was placed in a dependent position appropriate for triple lumen catheter placement based on the vein to be cannulated. The patient's left neck was prepped and draped in sterile fashion. 1% Lidocaine was used to anesthetize the surrounding skin area. A triple lumen 9F Cordis catheter was introduced into the internal jugular vein using Seldinger technique. The catheter was threaded smoothly over the guide wire and appropriate blood return was obtained. Each lumen of the catheter was evacuated of air and flushed with sterile saline. The catheter was then sutured in place to the skin and a sterile dressing applied. Perfusion to the extremity distal to the point of catheter insertion was checked and found to be adequate. There was no immediate complication. The tip of the catheter was noted in the right atrium. There was good blood return from all three ports. Sterile dressing was applied by the nurse. Chest x-ray was ordered. MMODL / IJN: [id number] /
--- NOTE | 2020-09-09 10:09 | PCN ---
PROCEDURE NOTE DATE OF SERVICE: 09/09/2020 PREOPERATIVE DIAGNOSES: Hypotension, hemodynamic monitoring. POSTOPERATIVE DIAGNOSES: Hypotension, hemodynamic monitoring. PROCEDURE PERFORMED: Left radial arterial line insertion. LEFT RADIAL ARTERIAL LINE PLACEMENT: Indications: Hemodynamic monitoring. A time-out was completed verifying correct patient, procedure, site, positioning, and implant(s) or special equipment if applicable. Dell's test was performed to ensure adequate perfusion. The patient's left wrist was prepped and draped in sterile fashion. 1% Lidocaine was used to anesthetize the area. An 18G Arrow arterial line was introduced into the radial/femoral artery. The catheter was threaded over the guide wire and the needle was removed with appropriate pulsatile blood return. Blood loss was minimal. The catheter was then sutured in place to the skin and a sterile dressing applied. Perfusion to the extremity distal to the point of catheter insertion was checked and found to be adequate. The patient tolerated the procedure well and there were no complications. MMODL / IJN: [id number] /
--- NOTE | 2020-09-09 10:10 | P.NPCON ---
History of Present Illness - Reason for Consult acute renal failure - History of Present Illness Reason for consultation: Acute kidney injury History of present illness: Patient is 74-year-old male seen in renal consultation for acute kidney injury. Creatinine was 2.24 on admission and is 1.87 today. Patient felt lightheaded and was brought to the hospital by the EMS. Patient subsequently became short of breath and was actively bleeding. He was bagged and is now intubated. He is currently on 60% FiO2. He was noted to be in third-degree heart block and had a transvenous pacer placed yesterday evening. He is on Levophed. He is also on a bicarb drip is running at 1 50 mL an hour. Bicarb level was 11 on admission and was 14 this morning. Chest x-ray suggestive of pneumonia. He is maintained on antibiotics. Urine output 40-60 mL an hour overnight. He was on Aldactone at home which they'll. I don't see any nonsteroidals and his home medications. Covid test was negative but will be repeated again today. Vital signs are stable. General: The patient appeared well nourished and normally developed. HEENT: Intubated. LUNGS: Breath sounds decreased. HEART: Paced rhythm. Abdomen: Soft, no distention noted. EXTREMITITES: No edema. Past Medical History Past Medical History: Hyperlipidemia Additional Past Medical History / Comment(s): ventral hernia History of Any Multi-Drug Resistant Organisms: None Reported Past Surgical History: Unable to Obtain Past Anesthesia/Blood Transfusion Reactions: Unable to Obtain Past Psychological History: No Psychological Hx Reported Smoking Status: Never smoker Past Alcohol Use History: None Reported Past Drug Use History: None Reported Medications and Allergies Home Medications Medication Instructions Recorded Confirmed Type Levothyroxine Sodium [Synthroid] 112 mcg PO DAILY 09/08/20 09/08/20 History Spironolactone 100 mg PO DAILY 09/08/20 09/08/20 History Zinc 50 mg PO DAILY 09/08/20 09/08/20 History Allergies Allergy/AdvReac Type Severity Reaction Status Date / Time cephalexin [From Keflex] Allergy Rash/Hives Verified 09/08/20 12:31 Penicillins Allergy Anaphylaxis Verified 09/08/20 12:31 Physical Exam Vitals: Vital Signs Temp Pulse Pulse Resp BP Pulse Ox 09/09/20 08:00 97.9 F 60 25 H 109/68 99 09/09/20 07:00 60 26 H 107/61 99 09/09/20 06:00 60 17 79/43 98 09/09/20 05:00 60 26 H 112/58 100 09/09/20 04:00 98.4 F 60 60 26 H 102/65 100 09/09/20 03:15 60 26 H 133/54 100 09/09/20 03:00 60 26 H 123/58 100 09/09/20 02:45 60 26 H 117/52 100 09/09/20 02:30 60 26 H 130/55 100 09/09/20 02:15 60 26 H 111/53 100 09/09/20 02:00 60 26 H 121/39 100 09/09/20 01:45 60 26 H 116/49 100 09/09/20 01:30 60 26 H 118/53 100 09/09/20 01:15 60 26 H 122/45 100 09/09/20 01:00 60 26 H 121/42 100 09/09/20 00:45 60 26 H 113/52 100 09/09/20 00:30 60 26 H 112/54 100 09/09/20 00:15 60 26 H 109/44 100 09/09/20 00:07 60 26 H 109/44 100 09/09/20 00:00 97.6 F 60 60 26 H 116/65 100 09/08/20 23:45 60 26 H 108/43 09/08/20 23:30 60 26 H 83/67 09/08/20 23:15 60 26 H 109/36 100 09/08/20 23:00 60 26 H 113/42 100 09/08/20 22:45 60 33 H 104/56 100 09/08/20 22:30 60 17 112/45 100 09/08/20 22:15 60 14 101/70 100 09/08/20 22:00 60 15 86/53 100 09/08/20 21:45 60 26 H 78/62 100 09/08/20 21:30 60 22 98/82 100 09/08/20 21:15 60 19 107/94 99 09/08/20 21:00 60 17 116/71 99 09/08/20 20:45 60 23 96/39 99 09/08/20 20:30 60 23 147/48 100 09/08/20 20:15 60 26 H 118/77 98 09/08/20 20:00 97.6 F 60 60 32 H 90/55 97 09/08/20 19:45 60 26 H 98/69 97 09/08/20 19:30 60 27 H 108/58 98 09/08/20 19:15 60 27 H 120/57 98 09/08/20 19:00 96.7 F L 60 31 H 119/62 97 09/08/20 18:45 60 31 H 116/70 97 09/08/20 18:30 60 28 H 124/62 96 09/08/20 18:15 60 22 116/63 96 09/08/20 18:00 96.2 F L 60 28 H 124/70 97 09/08/20 17:45 60 27 H 112/76 96 09/08/20 17:30 60 27 H 119/65 95 09/08/20 17:15 60 36 H 111/54 96 09/08/20 17:00 96.1 F L 60 56 H 100/56 93 L 09/08/20 16:54 60 37 H 100/56 94 L 09/08/20 16:30 60 26 H 09/08/20 14:58 51 L 20 101/42 89 L 09/08/20 14:56 51 L 20 100/40 76 L 09/08/20 14:50 48 L 20 96/24 70 L 09/08/20 14:40 47 L 16 90/53 70 L 09/08/20 14:39 46 L 16 75 L 09/08/20 14:16 46 L 16 87/51 09/08/20 14:01 47 L 14 105/49 84 L 09/08/20 13:50 81 14 83/55 43 L 09/08/20 13:30 40 L 26 H 111/65 58 L 09/08/20 13:00 51 L 28 H 122/61 95 09/08/20 12:30 52 L 31 H 128/63 98 09/08/20 12:00 52 L 26 H 119/58 97 09/08/20 11:33 52 L 22 115/55 97 09/08/20 10:51 97.5 F L 49 L 22 136/62 93 L Intake and Output 09/08/20 09/09/20 09/09/20 22:59 06:59 14:59 Intake Total 4914.221 4478.314 526.361 Output Total 310 430 150 Balance 392.781 4766.314 376.361 Intake: IV 110 150 0.9% sodium chloride for 40 transducer Dextrose 5% in Water 1, 150 000 ml @ 150 mls/hr IV . Q7H40M [facility] with Sodium Bicarb (1 Meq/ml) 150 ml Rx#:[id number] Intake, IV Titration 7347.742 3993.314 376.361 Amount Aztreonam 2 gm In Sodium 100 Chloride 0.9% 100 ml @ 33 .3 mls/hr IVPB Q8HR [facility] Rx#:[id number] Cisatracurium 200 mg In 15.531 Sodium Chloride 0.9% 180 ml @ 2 MCG/KG/MIN 8.709 mls/hr IV .[id number] [facility] Rx #:[id number] DOPamine DRIP 800 mg In 128.732 Water For Injection 1 250ml.bag @ 5 MCG/KG/MIN 6.804 mls/hr IV .Q24H [facility] Rx#:[id number] Dextrose 5% in Water 1, 450 1350 000 ml @ 100 mls/hr IV . [id number] ONE with Sodium Bicarb (1 Meq/ml) 150 ml Rx#:[id number] Norepinephrine 4 mg In 183.143 68.783 254 Sodium Chloride 0.9% 250 ml @ 0.05 MCG/KG/MIN 13. 826 mls/hr IV .[id number] [facility] Rx#:[id number] metroNIDAZOLE-NS PMX 500 100 100 mg In Saline 1 100ml.bag @ 100 mls/hr IVPB Q8H [facility] Rx#:[id number] propofoL 1,000 mg In 71.378 200 122.361 Empty Bag 1 bag @ Titrate IV .Q0M [facility] Rx#: [id number] propofoL 100 ml @ 0 mls/ 100 hr IV .STK-MED ONE Rx#: [id number] Output: Gastric Drainage 100 Urine 210 430 150 Other: Voiding Method Indwelling Catheter Indwelling Catheter # Bowel Movements 0 Weight 72.575 kg 82.1 kg Results - Lab Results Most recent lab results ABG pH 7.29 (7.35-7.45) L 09/09/20 06:07 ABG pCO2 39 mmHg (35-45) 09/09/20 06:07 ABG pO2 88 mmHg (83-108) 09/09/20 06:07 ABG HCO3 19 mmol/L (21-25) L 09/09/20 06:07 ABG O2 Saturation 97.2 % (94-97) H 09/09/20 06:07 Calcium 6.9 mg/dL (8.4-10.2) L 09/09/20 03:25 Magnesium 1.5 mg/dL (1.6-2.3) L 09/09/20 03:25 09/09/20 03:25 09/09/20 03:25 Assessment and Plan Plan: Assessment: 1. Acute kidney injury secondary to ATN secondary to septic shock. Unknown baseline renal function. Creatinine was 2.24 on admission and is 1.87 today. 2. Metabolic acidosis secondary to acute kidney injury and lactic acidosis ma intained on bicarb drip. 3. Septic shock secondary to pneumonia maintained on antibiotics and vasop ressors. 4. Third degree heart block status post transvenous pacer placement September 08. 5. Acute hypoxic respiratory failure. Currently intubated. 6. Hypovolemic hyponatremia. Plan: Maintain bicarb drip. Check UA and renal ultrasound. Wean vasopressors and FiO2. Avoid nephrotoxins. Continue to monitor renal function and urine output. Repeat BMP this evening. Thank you for the consultation. I will continue to follow the patient with you during his hospital stay.
[2020-09-09] MEDS: MAGNESIUM SULFATE-D5W PMX 1 GM in DEXTROSE/WATER 1 100ML.BAG IVPB SCH ×2 (10:14→11:24)
[2020-09-09] MEDS: HEPARIN SODIUM,PORCINE 5,000 UNIT/ML 1 ML VIAL SQ SCH ×2 (10:14→20:19)
[2020-09-09] MEDS: AZTREONAM 2 GM in SODIUM CHLORIDE 0.9% 100 ML IVPB SCH ×3 (10:14→23:06)
--- NOTE | 2020-09-09 10:14 | XR ---
EXAMINATION TYPE: XR chest 1V portable DATE OF EXAM: 09/09/2020 Comparison: Earlier today Clinical History: 74-year-old male line placement Findings: New left CVC tip in the upper right atrium. Right IJ right ventricular pacer lead redemonstrated. NG tube courses below the diaphragm. ET tube satisfactory. Heart normal size. Atherosclerotic arch calci fications. Patchy bilateral areas of consolidation are redemonstrated. There has been some shifting o f opacities into the upper lobes and slight improvement in the lower lungs. Impression: 1. New left CVC tip in the upper right atrium. 2. Bilateral patchy consolidation with some shifting opacities, increased in the upper lobes and decr eased in the lower lungs as compared to earlier today. This would favor pulmonary edema.
[2020-09-09] MEDS: CHLORHEXIDINE GLUCONATE 15 ML CUP MUCOUS MEM SCH ×2 (11:24→20:19)
[2020-09-09 11:30] LABS: Glucose,Whole Blood 198 mg/dL (75-99)
[2020-09-09 11:34] LABS: ABG Base Excess -3.1 mmol/L; ABG HCO3 21 mmol/L (21-25); ABG Oxygen Saturation 98.2 % (94-97); ABG PCO2 33 mmHg (35-45); ABG PH 7.42 (7.35-7.45); ABG PO2 118 mmHg (83-108); ABG TCO2 22 mmol/L (19-24)
[2020-09-09 11:35] LABS: Allen Test Performed? no
--- NOTE | 2020-09-09 11:36 | P.PN ---
Subjective Progress Note Date: 09/09/20 Principal diagnosis: CC: shortness of breath found to have pneumonia with septic shock Patient currently is intubated and sedated. He is on norepinephrine drip. He is also on bicarb drip. His bicarb is improving. Yesterday patient had transvenous pacemaker placed emergently by cardiology for third degree AV block. His heart rate is controlled at 60. Objective - Vital Signs Vital signs: Vital Signs Temp 97.9 F 09/09/20 08:00 Pulse 60 09/09/20 10:00 Resp 26 H 09/09/20 10:00 BP 117/74 09/09/20 10:00 Pulse Ox 100 09/09/20 10:00 Intake & Output 09/08/20 09/09/20 09/09/20 18:59 06:59 18:59 Intake Total 550.439 1495.485 826.361 Output Total 195 545 210 Balance 45.218 2197.485 616.361 Weight 72.575 kg 82.1 kg Intake: IV 100 10 450 0.9% sodium chloride for 30 10 transducer Dextrose 5% in Water 1, 450 000 ml @ 150 mls/hr IV . Q7H40M [facility] with Sodium Bicarb (1 Meq/ml) 150 ml Rx#:[id number] Intake, IV Titration 897.194 1163.485 376.361 Amount Aztreonam 2 gm In Sodium 100 Chloride 0.9% 100 ml @ 33 .3 mls/hr IVPB Q8HR [facility] Rx#:[id number] Cisatracurium 200 mg In 15.531 Sodium Chloride 0.9% 180 ml @ 2 MCG/KG/MIN 8.709 mls/hr IV .[id number] [facility] Rx #:[id number] DOPamine DRIP 800 mg In 118.730 13.064 Water For Injection 1 250ml.bag @ 5 MCG/KG/MIN 6.804 mls/hr IV .Q24H [facility] Rx#:[id number] Dextrose 5% in Water 1, 1800 000 ml @ 100 mls/hr IV . [id number] ONE with Sodium Bicarb (1 Meq/ml) 150 ml Rx#:[id number] Norepinephrine 4 mg In 2.074 251.926 254 Sodium Chloride 0.9% 250 ml @ 0.05 MCG/KG/MIN 13. 826 mls/hr IV .[id number] [facility] Rx#:[id number] metroNIDAZOLE-NS PMX 500 200 mg In Saline 1 100ml.bag @ 100 mls/hr IVPB Q8H [facility] Rx#:[id number] propofoL 1,000 mg In 19.414 251.964 122.361 Empty Bag 1 bag @ Titrate IV .Q0M [facility] Rx#: [id number] propofoL 100 ml @ 0 mls/ 100 hr IV .STK-MED ONE Rx#: [id number] Output: Gastric Drainage 100 Urine 95 545 210 Other: Voiding Method Indwelling Catheter Indwelling Catheter # Bowel Movements 0 ABP, PAP, CO, CI - Last Documented Arterial Blood Pressure 138/65 - Exam General examination - intubated and sedated Heart - + S1S2 no murmurs Lungs - diffuse rhonchi Abdomen large ventricular hernia Extremities - No edema SPRING TACKER - unable to assess Psych - unable to assess - Labs CBC & Chem 7: 09/09/20 03:25 09/09/20 03:25 Labs: Abnormal Lab Results - Last 24 Hours (Table) 09/08/20 09/08/20 09/08/20 Range/Units 11:05 11:27 11:27 WBC (3.8-10.6) k/uL MCV (80.0-100.0) fL Neutrophils # (Manual) 28.30 H (1.3-7.7) k/uL Lymphocytes # (Manual) 4.84 H (1.0-4.8) k/uL Monocytes # (Manual) 1.38 H (0-1.0) k/uL Metamyelocytes # (Man) 0.35 H (0) k/uL Myelocytes # (Manual) 0.35 H (0) k/uL ABG pH (7.35-7.45) ABG pCO2 (35-45) mmHg ABG pO2 (83-108) mmHg ABG HCO3 (21-25) mmol/L ABG Total CO2 (19-24) mmol/L ABG O2 Saturation (94-97) % Sodium (137-145) mmol/L Carbon Dioxide (22-30) mmol/L BUN (9-20) mg/dL Creatinine (0.66-1.25) mg/dL Glucose (74-99) mg/dL POC Glucose (mg/dL) (75-99) mg/dL Plasma Lactic Acid Romain 6.9 H* (0.7-2.0) mmol/L Calcium (8.4-10.2) mg/dL Magnesium (1.6-2.3) mg/dL AST (17-59) U/L ALT (4-49) U/L Troponin I 0.144 H* (0.000-0.034) ng/mL Total Protein (6.3-8.2) g/dL Albumin (3.5-5.0) g/dL 09/08/20 09/08/20 09/08/20 Range/Units 11:27 13:32 13:42 WBC (3.8-10.6) k/uL MCV (80.0-100.0) fL Neutrophils # (Manual) (1.3-7.7) k/uL Lymphocytes # (Manual) (1.0-4.8) k/uL Monocytes # (Manual) (0-1.0) k/uL Metamyelocytes # (Man) (0) k/uL Myelocytes # (Manual) (0) k/uL ABG pH 6.95 L* (7.35-7.45) ABG pCO2 61 H (35-45) mmHg ABG pO2 53 L* (83-108) mmHg ABG HCO3 14 L (21-25) mmol/L ABG Total CO2 15 L (19-24) mmol/L ABG O2 Saturation 64.7 L (94-97) % Sodium 128 L (137-145) mmol/L Carbon Dioxide 11 L (22-30) mmol/L BUN 30 H (9-20) mg/dL Creatinine 2.24 H (0.66-1.25) mg/dL Glucose 269 H (74-99) mg/dL POC Glucose (mg/dL) 221 H (75-99) mg/dL Plasma Lactic Acid Romain (0.7-2.0) mmol/L Calcium (8.4-10.2) mg/dL Magnesium (1.6-2.3) mg/dL AST 65 H (17-59) U/L ALT 53 H (4-49) U/L Troponin I (0.000-0.034) ng/mL Total Protein (6.3-8.2) g/dL Albumin (3.5-5.0) g/dL 09/08/20 09/08/20 09/08/20 Range/Units 14:22 14:41 15:52 WBC (3.8-10.6) k/uL MCV (80.0-100.0) fL Neutrophils # (Manual) (1.3-7.7) k/uL Lymphocytes # (Manual) (1.0-4.8) k/uL Monocytes # (Manual) (0-1.0) k/uL Metamyelocytes # (Man) (0) k/uL Myelocytes # (Manual) (0) k/uL ABG pH 6.94 L* (7.35-7.45) ABG pCO2 70 H (35-45) mmHg ABG pO2 59 L* (83-108) mmHg ABG HCO3 14 L (21-25) mmol/L ABG Total CO2 (19-24) mmol/L ABG O2 Saturation 66.2 L (94-97) % Sodium (137-145) mmol/L Carbon Dioxide (22-30) mmol/L BUN (9-20) mg/dL Creatinine (0.66-1.25) mg/dL Glucose (74-99) mg/dL POC Glucose (mg/dL) (75-99) mg/dL Plasma Lactic Acid Romain 5.3 H* (0.7-2.0) mmol/L Calcium (8.4-10.2) mg/dL Magnesium (1.6-2.3) mg/dL AST (17-59) U/L ALT (4-49) U/L Troponin I 0.160 H* (0.000-0.034) ng/mL Total Protein (6.3-8.2) g/dL Albumin (3.5-5.0) g/dL 09/08/20 09/08/20 09/08/20 Range/Units 16:55 17:28 18:47 WBC (3.8-10.6) k/uL MCV (80.0-100.0) fL Neutrophils # (Manual) (1.3-7.7) k/uL Lymphocytes # (Manual) (1.0-4.8) k/uL Monocytes # (Manual) (0-1.0) k/uL Metamyelocytes # (Man) (0) k/uL Myelocytes # (Manual) (0) k/uL ABG pH 7.03 L* (7.35-7.45) ABG pCO2 (35-45) mmHg ABG pO2 (83-108) mmHg ABG HCO3 12 L (21-25) mmol/L ABG Total CO2 13 L (19-24) mmol/L ABG O2 Saturation 91.6 L (94-97) % Sodium (137-145) mmol/L Carbon Dioxide (22-30) mmol/L BUN (9-20) mg/dL Creatinine (0.66-1.25) mg/dL Glucose (74-99) mg/dL POC Glucose (mg/dL) (75-99) mg/dL Plasma Lactic Acid Romain 3.8 H* (0.7-2.0) mmol/L Calcium (8.4-10.2) mg/dL Magnesium (1.6-2.3) mg/dL AST (17-59) U/L ALT (4-49) U/L Troponin I 0.146 H* (0.000-0.034) ng/mL Total Protein (6.3-8.2) g/dL Albumin (3.5-5.0) g/dL 09/08/20 09/08/20 09/09/20 Range/Units 20:38 23:37 03:25 WBC (3.8-10.6) k/uL MCV (80.0-100.0) fL Neutrophils # (Manual) (1.3-7.7) k/uL Lymphocytes # (Manual) (1.0-4.8) k/uL Monocytes # (Manual) (0-1.0) k/uL Metamyelocytes # (Man) (0) k/uL Myelocytes # (Manual) (0) k/uL ABG pH (7.35-7.45) ABG pCO2 (35-45) mmHg ABG pO2 (83-108) mmHg ABG HCO3 (21-25) mmol/L ABG Total CO2 (19-24) mmol/L ABG O2 Saturation (94-97) % Sodium (137-145) mmol/L Carbon Dioxide (22-30) mmol/L BUN (9-20) mg/dL Creatinine (0.66-1.25) mg/dL Glucose (74-99) mg/dL POC Glucose (mg/dL) (75-99) mg/dL Plasma Lactic Acid Romain 5.7 H* 6.4 H* 5.4 H* (0.7-2.0) mmol/L Calcium (8.4-10.2) mg/dL Magnesium (1.6-2.3) mg/dL AST (17-59) U/L ALT (4-49) U/L Troponin I (0.000-0.034) ng/mL Total Protein (6.3-8.2) g/dL Albumin (3.5-5.0) g/dL 09/09/20 09/09/20 09/09/20 Range/Units 03:25 03:25 06:03 WBC 41.1 H (3.8-10.6) k/uL MCV 100.7 H (80.0-100.0) fL Neutrophils # (Manual) 36.50 H (1.3-7.7) k/uL Lymphocytes # (Manual) (1.0-4.8) k/uL Monocytes # (Manual) 2.06 H (0-1.0) k/uL Metamyelocytes # (Man) 0.41 H (0) k/uL Myelocytes # (Manual) (0) k/uL ABG pH (7.35-7.45) ABG pCO2 (35-45) mmHg ABG pO2 (83-108) mmHg ABG HCO3 (21-25) mmol/L ABG Total CO2 (19-24) mmol/L ABG O2 Saturation (94-97) % Sodium 129 L (137-145) mmol/L Carbon Dioxide 14 L (22-30) mmol/L BUN 29 H (9-20) mg/dL Creatinine 1.87 H (0.66-1.25) mg/dL Glucose 189 H (74-99) mg/dL POC Glucose (mg/dL) (75-99) mg/dL Plasma Lactic Acid Roamin 5.2 H* (0.7-2.0) mmol/L Calcium 6.9 L (8.4-10.2) mg/dL Magnesium 1.5 L (1.6-2.3) mg/dL AST 216 H (17-59) U/L ALT 134 H (4-49) U/L Troponin I (0.000-0.034) ng/mL Total Protein 5.2 L (6.3-8.2) g/dL Albumin 2.5 L (3.5-5.0) g/dL 09/09/20 Range/Units 06:07 WBC (3.8-10.6) k/uL MCV (80.0-100.0) fL Neutrophils # (Manual) (1.3-7.7) k/uL Lymphocytes # (Manual) (1.0-4.8) k/uL Monocytes # (Manual) (0-1.0) k/uL Metamyelocytes # (Man) (0) k/uL Myelocytes # (Manual) (0) k/uL ABG pH 7.29 L (7.35-7.45) ABG pCO2 (35-45) mmHg ABG pO2 (83-108) mmHg ABG HCO3 19 L (21-25) mmol/L ABG Total CO2 (19-24) mmol/L ABG O2 Saturation 97.2 H (94-97) % Sodium (137-145) mmol/L Carbon Dioxide (22-30) mmol/L BUN (9-20) mg/dL Creatinine (0.66-1.25) mg/dL Glucose (74-99) mg/dL POC Glucose (mg/dL) (75-99) mg/dL Plasma Lactic Acid Romain (0.7-2.0) mmol/L Calcium (8.4-10.2) mg/dL Magnesium (1.6-2.3) mg/dL AST (17-59) U/L ALT (4-49) U/L Troponin I (0.000-0.034) ng/mL Total Protein (6.3-8.2) g/dL Albumin (3.5-5.0) g/dL Microbiology - Last 24 Hours (Table) 09/08/20 23:32 Sputum Culture - Preliminary Sputum Assessment and Plan Assessment: #Unresponsive episode with agonal breathing likely due to hypoxia versus bradycardia #Third degree A-V block bradycardia status post transvenous pacemaker placed em ergently on 09/08/2020 #Acute hypoxic respiratory failure/ventilatory dependent respiratory failure #Bilateral consolidation likely due to pneumonia and pulmonary edema #Septic shock with lactic acid 6.9. #Elevated BNP -We'll start patient on broad-spectrum antibiotics with IV vancomycin, aztreonam (patient has penicillin and cephalosporin ALLERGY) and Flagyl and Levaquin -COVID 19 PCR is negative -Check sputum culture, follow blood culture -Lactic acid persistently elevated -Bullet Swaging Machine Adjuster to manage vent -Patient currently on norepinephrine -> wean pressors as tolerated -Check echocardiogram to rule out heart failure (clinically patient does not appear to be in heart failure as patient has no JVD, no lower extremity edema, denies PND or orthopnea, no pleural effusions on chest x-ray) -> patient had right heart cath done on 09/08/2020 that showed right-sided filling pressures consistent with ARDS and not heart failure -Hold lasix due to hypotension -> defer diuretics to returner and nephrology -Hold resuscitation fluids due to worsening pulmonary edema -Status post emergent transvenous pacemaker placement on 09/08/2020 -> heart rate now controlled -Cardiology, returner and nephrology on board #Elevated troponin likely due to demand ischemia -Trend troponin -> does not follow the trend for ACS -EKG shows right bundle branch block -Cardiology on board -Check echo #Acute kidney injury -Unknown baseline -Hold fluids due to worsening pulmonary edema -Hold home dose spironolactone -Improving -Nephrology consult #Metabolic acidosis likely due to acute kidney injury and lactic acidosis -Trend BMP -Patient started on a bicarb drip -Nephrology consult -Improving #Hyponatremia likely prerenal -Hold fluids due to worsening pulmonary edema -Nephrology managing #Hyperglycemia with no known history of diabetes -Sliding-scale insulin -Likely stress-induced -Check hemoglobin A1c #Ventricular hernia -Outpatient follow-up Prognosis is guarded CODE STATUS:full code DVT prophylaxis: heparin SC Anticipated length of stay > than 2 midnights
[2020-09-09] MEDS ORDERED: LEVOFLOXACIN 750MG-D5W PMX 750 MG in DEXTROSE/WATER 1 150ML.BAG IVPB SCH (13:00)
--- NOTE | 2020-09-09 13:38 | CONS ---
CONSULTATION PULMONARY/CRITICAL CARE CONSULTATION NOTE: DATE OF SERVICE: September 09, 2020 HISTORY OF PRESENT ILLNESS: This is a 74-year-old gentleman who presented to the emergency department. He was brought in by EMS. He apparently was having difficulty breathing at home. In route, he was bagged by EMS. When he arrived in the emergency room, he was apparently doing a bit better. Subsequent to that, he developed profound shortness of breath. He was discovered to be in heart failure and there was some concern about pneumonia and sepsis as well. I did speak to Dr. Collier, the ER physician at that time. Subsequently, the patient developed third-degree heart block and required intubation and mechanical ventilation and Dr. Davis called for the legislative aide, took the patient to the label tacker for placement of a temporary venous pacemaker. The patient was brought back to the ICU where I was asked to see the patient in consultation. Currently, the patient is on the ventilator. The patient is on the volume assist-control modality with a rate of 26, tidal volume 450, FiO2 of 60%, PEEP of 15. Blood gases show pO2 of 88, pCO2 of 39 and a pH of 7.29. He is getting Nimbex at 1 per minute, propofol at 50 mcg/kg per minute, norepinephrine at 18 mcg/minute, D5W 3 amps of bicarb at 150 mL an hour. Today, we placed a left radial art line and left internal jugular triple-lumen catheter. He was placed on vancomycin, Flagyl, Azactam for possible bilateral pneumonia. The temporary venous pacemaker remains in place. Cardiology is on board as well as Infectious Diseases. CURRENT MEDICATIONS: Home medications include levothyroxine, Aldactone and zinc. ALLERGIES: Include KEFLEX AND PENICILLIN. PAST MEDICAL HISTORY: Medical problems include hyperlipidemia and hypothyroidism. SURGICAL HISTORY: Surgical history is apparently negative or remote. Nothing is documented here in the ER [facility]. SOCIAL HISTORY: Negative for tobacco, alcohol or illicit drug use. FAMILY HISTORY: Family history could not be obtained. REVIEW OF SYSTEMS: Cannot be obtained at this time. The only thing noted on the ER [facility] was told to me by the ER physician was that the patient came in with complaints of shortness of breath. PHYSICAL EXAMINATION: VITAL SIGNS: Current vital signs are reviewed. Temperature 97.9, heart rate 60, respiratory rate 26, blood pressure 117/74, mean 88 and saturations are 100% on the 60% FiO2 and PEEP of 15. GENERAL: Appears in no acute distress. HEENT: Examination is grossly unremarkable. He has an orally placed endotracheal tube and NG tube. NECK: Supple. Full range of motion. No adenopathy. Neck veins are flat. There is now a left internal jugular triple-lumen catheter. CARDIOVASCULAR: Examination reveals regular rhythm and rate. Heart rate 60. S1, S2 normal. He is being paced. No murmur. LUNGS: Reveal diffuse coarse bilateral rhonchi. Breath sounds are equal bilaterally but diminished throughout. There are crackles bilaterally. ABDOMEN: Soft. No bowel sounds. EXTREMITIES are intact. No edema. SKIN: Without rash. NEUROLOGIC: Examination could not be adequately assessed. LABS: Reviewed. White count 41.1, hemoglobin 14.6, hematocrit 46.3, platelet count 339,000. Blood gases show pO2 of 88, pCO2 of 39 and pH 7.29. Sodium 129, potassium 4.6, chloride 104, CO2 14. Anion gap is 11. BUN and creatinine were 29 and 1.87. Lactic acid is elevated at 5.2. Previous lactic acid was 5.4, magnesium 1.5, AST 216, ALT 134, albumin 2.5. Microbiology is currently pending or negative. A chest x-ray shows diffuse bilateral patchy infiltrates with consolidation. This could be related to underlying pulmonary edema and/or infection. Initial chest x-ray was also abnormal showing a pattern of possible underlying pulmonary edema. N-terminal proBNP was 75549. Troponin was 0.146. Microbiology is currently pending or negative. X-rays are reviewed. Current medications include Artificial Tears, aztreonam, chlorhexidine, Nimbex, subcu heparin, insulin, levothyroxine, magnesium replacement, Flagyl, norepinephrine, propofol, D5W 3 amps of bicarb at 150 an hour, and vancomycin. ASSESSMENT: 1. Acute hypoxemic respiratory failure, requiring intubation and mechanical ventilation on September 08, 2020 for suspected pneumonia/pulmonary edema. 2. Third-degree heart block, status post transvenous pacemaker. 3. Severe metabolic acidosis, improved. 4. Lactic acidemia, improving. 5. Rule out ischemic cardiac disease, based on the elevated troponin. 6. Hyponatremia. 7. Acute kidney injury, possibly secondary to acute tubular necrosis from the patient's hypotension. 8. Shock liver. 9. History of hyperlipidemia. 10.Hypothyroidism. PLAN: The patient had a left internal jugular triple-lumen placed by myself. We also placed a left radial art line. The patient remains on Nimbex because of the patient ventilator dyssynchrony. He remains on propofol and norepinephrine at 18 mcg/minute. He is getting a bicarbonate drip. Additional recommendations and suggestions are forthcoming. He is on Vanco, Flagyl, and Azactam. The primary process would could be either pneumonia and/or heart failure. We will continue to follow. Prognosis is guarded. Cardiology and Nephrology have been consulted. Will make sure that Infectious Diseases see the patient as well. MMODL / IJN: [id number] /
[2020-09-09] MEDS: NOREPINEPHRINE 8 MG in SODIUM CHLORIDE 0.9% 250 ML IV SCH ×2 (14:03→21:26)
[2020-09-09 14:04] LABS: Hemoglobin A1C 5.4 % (4.0-6.0)
[2020-09-09] MEDS: VANCOMYCIN 1,250 MG in SODIUM CHLORIDE 0.9% 250 ML IVPB SCH (14:13)
[2020-09-09 15:30] LABS: Glucose,Whole Blood 140 mg/dL (75-99)
[2020-09-09 15:30] LABS: Glucose,Whole Blood 191 mg/dL (75-99)
[2020-09-09 15:30] LABS: Glucose,Whole Blood 205 mg/dL (75-99)
[2020-09-09 15:31] LABS: Glucose,Whole Blood 184 mg/dL (75-99)
[2020-09-09 17:59] LABS: Glucose,Whole Blood 142 mg/dL (75-99)
[2020-09-09 18:15] LABS: Amorphous Sediment,Urine Occasional /hpf; Appearance,Urine Cloudy (Clear); Bilirubin,Urine Negative (Negative); Blood,Urine Trace (Negative); Color,Urine Light Yellow; Glucose,Urine (UA) Negative (Negative); Ketones,Urine Negative (Negative); Leukocyte Esterase,Urine Large (Negative); Mucus,Urine Rare /hpf; Nitrite,Urine Negative (Negative); Protein,Urine Negative (Negative); RBC,Urine 2 /hpf (0-5); Specific Gravity,Urine 1.005 (1.001-1.035); Squamous Epithelial Cell,Urine 1 /hpf (0-4); Urobilinogen,Urine <2.0 mg/dL (<2.0); WBC,Urine 14 /hpf (0-5)
[2020-09-09 20:19] LABS: Calcium 6.7 mg/dL (8.4-10.2); Potassium 3.4 mmol/L (3.5-5.1)
[2020-09-09] MEDS ORDERED: Potassium Replacement Protocol 1 EACH MISC MISCELLANE PRN (20:29)
[2020-09-09] MEDS: CISATRACURIUM 200 MG in SODIUM CHLORIDE 0.9% 180 ML IV SCH (21:27)
[2020-09-09] MEDS: POTASSIUM BICARBONATE/CIT AC 20 MEQ TABLET.EFF NG-TUBE SCH ×2 (21:27→22:30)
[2020-09-09 23:03] LABS: Glucose,Whole Blood 156 mg/dL (75-99)
--- NOTE | 2020-09-09 23:05 | P.CONS ---
History of Present Illness - Reason for Consult Consult date: 09/09/20 Sepsis and antibiotic recommendation Requesting physician: Leigha Cruz - Chief Complaint Unresponsiveness and weakness x one day - History of Present Illness Patient is a 74-year-old male who apparently was brought into the ER by EMS after apparently the patient was complaining of some shortness of breath and lightheadedness for with the patient called EMS on arrival of the EMS patient was noted to have agonal breathing and they were bagging the patient for about 5 minutes afterward the patient becomes slightly awake and alert and the patient is able to give history ramus currently patient not had Covid 6 weeks ago and the patient was complaining of some shortness of breath however denies any fever chills of cough patient subsequently was brought to the hospital patient was was stabilized in the ER initially however the patient subsequent b ecome unresponsive again and required intubation patient also become bradycardic with heart rate in 30s and hypotensive the patient started on dopamine drip patient emergently taken to the Rn Clinical Documentation Specialist and status post pacemaker placement for third-degree AV block chest x-ray postintubation shows worsening opacity consistent with pulmonary edema patient is hypotensive requiring high-dose pressor support and the patient is currently on mechanical ventilation rn mentioned no significant purulent secretion through the ET, patient did have a elevated white count on admission of 34. 6 repeat is up to 41.1 today that prompted this infectious disease consultation patient also have elevated lactic acid urine was mildly positive patient is currently being treated with Azactam vancomycin and Flagyl because of multiple antibiotic allergies most information has been obtained from review the chart.nursing staff and the patient is currently intubated on the vent number provided history Review of Systems Positive points has been mentioned in HPI complete review could not be obtained because of his underlying mental status Past Medical History Past Medical History: Hyperlipidemia Additional Past Medical History / Comment(s): ventral hernia History of Any Multi-Drug Resistant Organisms: None Reported Past Surgical History: Unable to Obtain Past Anesthesia/Blood Transfusion Reactions: Unable to Obtain Past Psychological History: No Psychological Hx Reported Smoking Status: Never smoker Past Alcohol Use History: None Reported Past Drug Use History: None Reported Medications and Allergies Home Medications Medication Instructions Recorded Confirmed Type Levothyroxine Sodium [Synthroid] 112 mcg PO DAILY 09/08/20 09/08/20 History Spironolactone 100 mg PO DAILY 09/08/20 09/08/20 History Zinc 50 mg PO DAILY 09/08/20 09/08/20 History Allergies Allergy/AdvReac Type Severity Reaction Status Date / Time cephalexin [From [facility]] Allergy Rash/Hives Verified 09/08/20 12:31 Penicillins Allergy Anaphylaxis Verified 09/08/20 12:31 Physical Exam Vitals: Vital Signs Temp Pulse Pulse Resp BP Pulse Ox 09/09/20 22:00 60 26 H 117/74 100 09/09/20 21:00 97.8 F 60 26 H 117/74 100 09/09/20 20:00 60 60 26 H 117/74 100 09/09/20 19:00 60 26 H 117/74 100 09/09/20 18:00 60 21 117/74 100 09/09/20 17:00 60 26 H 100 09/09/20 16:00 97.1 F L 60 60 26 H 117/74 100 09/09/20 15:00 60 26 H 117/74 100 09/09/20 14:00 60 17 117/74 100 09/09/20 13:00 60 17 117/74 100 09/09/20 12:00 60 60 26 H 117/74 100 09/09/20 11:00 60 21 117/74 100 09/09/20 10:00 60 26 H 117/74 100 09/09/20 09:00 60 26 H 87/51 100 09/09/20 08:00 97.9 F 60 60 25 H 109/68 99 09/09/20 07:00 60 26 H 107/61 99 09/09/20 06:00 60 17 79/43 98 09/09/20 05:00 60 26 H 112/58 100 09/09/20 04:00 98.4 F 60 60 26 H 102/65 100 09/09/20 03:15 60 26 H 133/54 100 09/09/20 03:00 60 26 H 123/58 100 09/09/20 02:45 60 26 H 117/52 100 09/09/20 02:30 60 26 H 130/55 100 09/09/20 02:15 60 26 H 111/53 100 09/09/20 02:00 60 26 H 121/39 100 09/09/20 01:45 60 26 H 116/49 100 09/09/20 01:30 60 26 H 118/53 100 09/09/20 01:15 60 26 H 122/45 100 09/09/20 01:00 60 26 H 121/42 100 09/09/20 00:45 60 26 H 113/52 100 09/09/20 00:30 60 26 H 112/54 100 09/09/20 00:15 60 26 H 109/44 100 09/09/20 00:07 60 26 H 109/44 100 09/09/20 00:00 97.6 F 60 60 26 H 116/65 100 09/08/20 23:45 60 26 H 108/43 09/08/20 23:30 60 26 H 83/67 09/08/20 23:15 60 26 H 109/36 100 Intake and Output 09/09/20 09/09/20 09/10/20 14:59 22:59 06:59 Intake Total 5719.037 3694.783 Output Total 395 1445 Balance 1346.606 73.783 Intake: IV 1050 1200 Dextrose 5% in Water 1, 1050 1200 000 ml @ 150 mls/hr IV . Q7H40M STEPHAN with Sodium Bicarb (1 Meq/ml) 150 ml Rx#:[id number] Intake, IV Titration 691.606 318.783 Amount Cisatracurium 200 mg In 87.753 Sodium Chloride 0.9% 180 ml @ 2 MCG/KG/MIN 8.709 mls/hr IV .[id number] STEPHAN Rx #:[id number] Norepinephrine 4 mg In 508 Sodium Chloride 0.9% 250 ml @ 0.05 MCG/KG/MIN 13. 826 mls/hr IV .[id number] STEPHAN Rx#:[id number] Norepinephrine 8 mg In 111.574 Sodium Chloride 0.9% 250 ml @ 0.19 MCG/KG/MIN 30. 184 mls/hr IV .[id number] STEPH[facility] Rx#:[id number] propofoL 1,000 mg In 183.606 119.456 Empty Bag 1 bag @ Titrate IV .Q0M [facility] Rx#: [id number] Output: Urine 395 1445 Other: Voiding Method Indwelling Catheter Indwelling Catheter Weight 82.1 kg ABP, PAP, CO, CI - Last 8 Hours Arterial Blood Pressure 107/61 Arterial Blood Pressure 94/59 Arterial Blood Pressure 112/59 Arterial Blood Pressure 106/57 Arterial Blood Pressure 101/55 Arterial Blood Pressure 116/62 Arterial Blood Pressure 113/63 GENERAL DESCRIPTION: Elderly male intubated on the vent. No tachypnea or accessory muscle of respiration use. HEENT: Shows Pallor , no scleral icterus. Oral mucous membrane is dry. Patient is orally intubated NECK: Trachea central, no thyromegaly. LUNGS: Unlabored breathing. Decreased breath sound the bases. No wheeze or crackle. HEART: S1, S2, regular rate and rhythm. No loud murmur ABDOMEN: Soft, distention but soft and no tenderness no organomegaly EXTREMITIES: No edema of feet. SKIN: No rash, no masses palpable. NEUROLOGICAL: The patient is sedated on the vent. Results CBC & Chem 7: 09/09/20 03:25 09/09/20 19:34 Labs: Abnormal Lab Results - Last 24 Hours (Table) 09/08/20 09/08/20 09/08/20 Range/Units 13:42 16:35 19:28 WBC (3.8-10.6) k/uL MCV (80.0-100.0) fL Neutrophils # (Manual) (1.3-7.7) k/uL Monocytes # (Manual) (0-1.0) k/uL Metamyelocytes # (Man) (0) k/uL ABG pH (7.35-7.45) ABG pCO2 (35-45) mmHg ABG pO2 (83-108) mmHg ABG HCO3 (21-25) mmol/L ABG O2 Saturation (94-97) % Sodium (137-145) mmol/L Potassium (3.5-5.1) mmol/L Carbon Dioxide (22-30) mmol/L BUN (9-20) mg/dL Creatinine (0.66-1.25) mg/dL Glucose (74-99) mg/dL POC Glucose (mg/dL) 221 H 140 H 205 H (75-99) mg/dL Plasma Lactic Acid Romain (0.7-2.0) mmol/L Calcium (8.4-10.2) mg/dL Magnesium (1.6-2.3) mg/dL AST (17-59) U/L ALT (4-49) U/L Total Protein (6.3-8.2) g/dL Albumin (3.5-5.0) g/dL Procalcitonin (0.02-0.09) ng/mL Urine Blood (Negative) Ur Leukocyte Esterase (Negative) Urine WBC (0-5) /hpf Amorphous Sediment (None) /hpf Urine Mucus (None) /hpf 09/08/20 09/08/20 09/09/20 Range/Units 23:32 23:37 03:25 WBC (3.8-10.6) k/uL MCV (80.0-100.0) fL Neutrophils # (Manual) (1.3-7.7) k/uL Monocytes # (Manual) (0-1.0) k/uL Metamyelocytes # (Man) (0) k/uL ABG pH (7.35-7.45) ABG pCO2 (35-45) mmHg ABG pO2 (83-108) mmHg ABG HCO3 (21-25) mmol/L ABG O2 Saturation (94-97) % Sodium (137-145) mmol/L Potassium (3.5-5.1) mmol/L Carbon Dioxide (22-30) mmol/L BUN (9-20) mg/dL Creatinine (0.66-1.25) mg/dL Glucose (74-99) mg/dL POC Glucose (mg/dL) 184 H (75-99) mg/dL Plasma Lactic Acid Romain 6.4 H* 5.4 H* (0.7-2.0) mmol/L Calcium (8.4-10.2) mg/dL Magnesium (1.6-2.3) mg/dL AST (17-59) U/L ALT (4-49) U/L Total Protein (6.3-8.2) g/dL Albumin (3.5-5.0) g/dL Procalcitonin (0.02-0.09) ng/mL Urine Blood (Negative) Ur Leukocyte Esterase (Negative) Urine WBC (0-5) /hpf Amorphous Sediment (None) /hpf Urine Mucus (None) /hpf 09/09/20 09/09/20 09/09/20 Range/Units 03:25 03:25 03:25 WBC 41.1 H (3.8-10.6) k/uL MCV 100.7 H (80.0-100.0) fL Neutrophils # (Manual) 36.50 H (1.3-7.7) k/uL Monocytes # (Manual) 2.06 H (0-1.0) k/uL Metamyelocytes # (Man) 0.41 H (0) k/uL ABG pH (7.35-7.45) ABG pCO2 (35-45) mmHg ABG pO2 (83-108) mmHg ABG HCO3 (21-25) mmol/L ABG O2 Saturation (94-97) % Sodium 129 L (137-145) mmol/L Potassium (3.5-5.1) mmol/L Carbon Dioxide 14 L (22-30) mmol/L BUN 29 H (9-20) mg/dL Creatinine 1.87 H (0.66-1.25) mg/dL Glucose 189 H (74-99) mg/dL POC Glucose (mg/dL) (75-99) mg/dL Plasma Lactic Acid Romain (0.7-2.0) mmol/L Calcium 6.9 L (8.4-10.2) mg/dL Magnesium 1.5 L (1.6-2.3) mg/dL AST 216 H (17-59) U/L ALT 134 H (4-49) U/L Total Protein 5.2 L (6.3-8.2) g/dL Albumin 2.5 L (3.5-5.0) g/dL Procalcitonin 25.30 H (0.02-0.09) ng/mL Urine Blood (Negative) Ur Leukocyte Esterase (Negative) Urine WBC (0-5) /hpf Amorphous Sediment (None) /hpf Urine Mucus (None) /hpf 09/09/20 09/09/20 09/09/20 Range/Units 06:03 06:07 08:37 WBC (3.8-10.6) k/uL MCV (80.0-100.0) fL Neutrophils # (Manual) (1.3-7.7) k/uL Monocytes # (Manual) (0-1.0) k/uL Metamyelocytes # (Man) (0) k/uL ABG pH 7.29 L (7.35-7.45) ABG pCO2 (35-45) mmHg ABG pO2 (83-108) mmHg ABG HCO3 19 L (21-25) mmol/L ABG O2 Saturation 97.2 H (94-97) % Sodium (137-145) mmol/L Potassium (3.5-5.1) mmol/L Carbon Dioxide (22-30) mmol/L BUN (9-20) mg/dL Creatinine (0.66-1.25) mg/dL Glucose (74-99) mg/dL POC Glucose (mg/dL) 191 H (75-99) mg/dL Plasma Lactic Acid Romain 5.2 H* (0.7-2.0) mmol/L Calcium (8.4-10.2) mg/dL Magnesium (1.6-2.3) mg/dL AST (17-59) U/L ALT (4-49) U/L Total Protein (6.3-8.2) g/dL Albumin (3.5-5.0) g/dL Procalcitonin (0.02-0.09) ng/mL Urine Blood (Negative) Ur Leukocyte Esterase (Negative) Urine WBC (0-5) /hpf Amorphous Sediment (None) /hpf Urine Mucus (None) /hpf 09/09/20 09/09/20 09/09/20 Range/Units 11:29 11:32 13:25 WBC (3.8-10.6) k/uL MCV (80.0-100.0) fL Neutrophils # (Manual) (1.3-7.7) k/uL Monocytes # (Manual) (0-1.0) k/uL Metamyelocytes # (Man) (0) k/uL ABG pH (7.35-7.45) ABG pCO2 33 L (35-45) mmHg ABG pO2 118 H (83-108) mmHg ABG HCO3 (21-25) mmol/L ABG O2 Saturation 98.2 H (94-97) % Sodium (137-145) mmol/L Potassium (3.5-5.1) mmol/L Carbon Dioxide (22-30) mmol/L BUN (9-20) mg/dL Creatinine (0.66-1.25) mg/dL Glucose (74-99) mg/dL POC Glucose (mg/dL) 198 H (75-99) mg/dL Plasma Lactic Acid Romain 3.0 H* (0.7-2.0) mmol/L Calcium (8.4-10.2) mg/dL Magnesium (1.6-2.3) mg/dL AST (17-59) U/L ALT (4-49) U/L Total Protein (6.3-8.2) g/dL Albumin (3.5-5.0) g/dL Procalcitonin (0.02-0.09) ng/mL Urine Blood (Negative) Ur Leukocyte Esterase (Negative) Urine WBC (0-5) /hpf Amorphous Sediment (None) /hpf Urine Mucus (None) /hpf 09/09/20 09/09/20 09/09/20 Range/Units 17:47 17:50 19:34 WBC (3.8-10.6) k/uL MCV (80.0-100.0) fL Neutrophils # (Manual) (1.3-7.7) k/uL Monocytes # (Manual) (0-1.0) k/uL Metamyelocytes # (Man) (0) k/uL ABG pH (7.35-7.45) ABG pCO2 (35-45) mmHg ABG pO2 (83-108) mmHg ABG HCO3 (21-25) mmol/L ABG O2 Saturation (94-97) % Sodium 132 L (137-145) mmol/L Potassium 3.4 L (3.5-5.1) mmol/L Carbon Dioxide (22-30) mmol/L BUN 25 H (9-20) mg/dL Creatinine 1.38 H (0.66-1.25) mg/dL Glucose 157 H (74-99) mg/dL POC Glucose (mg/dL) 142 H (75-99) mg/dL Plasma Lactic Acid Romain (0.7-2.0) mmol/L Calcium 6.7 L (8.4-10.2) mg/dL Magnesium (1.6-2.3) mg/dL AST (17-59) U/L ALT (4-49) U/L Total Protein (6.3-8.2) g/dL Albumin (3.5-5.0) g/dL Procalcitonin (0.02-0.09) ng/mL Urine Blood Trace H (Negative) Ur Leukocyte Esterase Large H (Negative) Urine WBC 14 H (0-5) /hpf Amorphous Sediment Occasional H (None) /hpf Urine Mucus Rare H (None) /hpf 09/09/20 Range/Units 19:34 WBC (3.8-10.6) k/uL MCV (80.0-100.0) fL Neutrophils # (Manual) (1.3-7.7) k/uL Monocytes # (Manual) (0-1.0) k/uL Metamyelocytes # (Man) (0) k/uL ABG pH (7.35-7.45) ABG pCO2 (35-45) mmHg ABG pO2 (83-108) mmHg ABG HCO3 (21-25) mmol/L ABG O2 Saturation (94-97) % Sodium (137-145) mmol/L Potassium (3.5-5.1) mmol/L Carbon Dioxide (22-30) mmol/L BUN (9-20) mg/dL Creatinine (0.66-1.25) mg/dL Glucose (74-99) mg/dL POC Glucose (mg/dL) (75-99) mg/dL Plasma Lactic Acid Romain 2.9 H* (0.7-2.0) mmol/L Calcium (8.4-10.2) mg/dL Magnesium (1.6-2.3) mg/dL AST (17-59) U/L ALT (4-49) U/L Total Protein (6.3-8.2) g/dL Albumin (3.5-5.0) g/dL Procalcitonin (0.02-0.09) ng/mL Urine Blood (Negative) Ur Leukocyte Esterase (Negative) Urine WBC (0-5) /hpf Amorphous Sediment (None) /hpf Urine Mucus (None) /hpf Microbiology - Last 24 Hours (Table) 09/08/20 14:41 Blood Culture - Preliminary Blood No Growth after 24 hours 09/08/20 11:27 Blood Culture - Preliminary Blood No Growth after 24 hours 09/08/20 23:32 Gram Stain - Preliminary Sputum Sputum Culture - Preliminary Assessment and Plan Assessment: 1-patient presented to hospital with sepsis in this patient who did have a symptoms of some shortness of breath and weakness patient had did have hyotension and elevated white count with concern for possible pneumonia versus abdominal source as currently mother obvious focus of infection 2-Patient with multiple antibiotic ALLERGIES that would limit the number of ant ibiotic safe to use (1) Pneumonia Current Visit: Yes Status: Acute Code(s): J18.9 - PNEUMONIA, UNSPECIFIED ORGANISM SNOMED Code(s): 715778732 (2) Sepsis Current Visit: Yes Status: Acute Code(s): A41.9 - SEPSIS, UNSPECIFIED ORGANISM SNOMED Code(s): 73718113 Plan: 1-patient be continued on current broad-spectrum antibiotic in the form of Azactam vancomycin and Flagyl because of his multiple antibiotic ALLERGIES 2-gentle IV fluid We will follow on clinical condition and cultures to further adjust medication if needed Thank you for this consultation will follow this patient with you Time with Patient: Greater than 30
[2020-09-10] MEDS: ARTIFICIAL TEARS-HYPROMELLOSE DROPS 15 ML BTL BOTH EYES SCH ×5 (03:33→20:15)
[2020-09-10] MEDS ORDERED: POTASSIUM BICARBONATE/CIT AC 20 MEQ TABLET.EFF NG-TUBE SCH (04:00)
[2020-09-10 05:01] LABS: ABG Base Excess 6.5 mmol/L; ABG HCO3 29 mmol/L (21-25); ABG PCO2 31 mmHg (35-45); ABG PO2 162 mmHg (83-108); ABG TCO2 30 mmol/L (19-24)
[2020-09-10] MEDS: INSULIN ASPART (NovoLOG) 100 UNIT/ML VIAL SQ SCH ×3 (05:18→18:48)
[2020-09-10 05:32] LABS: Glucose,Whole Blood 151 mg/dL (75-99)
[2020-09-10 05:41] LABS: Allen Test Performed? no
[2020-09-10 05:44] LABS: Basophils # (A) 0.1 k/uL (0-0.2); Basophils % (A) 0 %; Eosinophils # (A) 0.1 k/uL (0-0.7); Eosinophils % (A) 0 %; Lymphocytes # (A) 1.1 k/uL (1.0-4.8); Lymphocytes % (A) 6 %; MCH 32.3 pg (25.0-35.0); MCHC 34.3 g/dL (31.0-37.0); Mean Platelet Volume 7.8; Monocytes # (A) 0.5 k/uL (0-1.0); Monocytes % (A) 3 %; Neutrophils # (A) 15.7 k/uL (1.3-7.7); Neutrophils % (A) 89 %; Platelet Count 164 k/uL (150-450); RBC 3.72 m/uL (4.30-5.90); RDW 13.7 % (11.5-15.5); WBC 17.6 k/uL (3.8-10.6)
[2020-09-10 05:45] LABS: MCV 94.1 fL (80.0-100.0)
[2020-09-10 05:57] LABS: Albumin 2.1 g/dL (3.5-5.0); Calcium 6.9 mg/dL (8.4-10.2); Potassium 3.5 mmol/L (3.5-5.1); Total Bilirubin 0.4 mg/dL (0.2-1.3); Total Protein 4.2 g/dL (6.3-8.2)
--- NOTE | 2020-09-10 06:52 | P.PN ---
Subjective Progress Note Date: 09/10/20 On 09/10/2020, the patient is being seen for a follow-up. The patient came in to the hospital yesterday and subsequently admitted to the intensive care unit because of difficulty breathing. At a time of arrival to the ED, the patient was discovered to be congestion heart failure and there was also concern for pneumonia/sepsis. Subsequently, the patient developed a third-degree AV block and required intubation mechanical ventilation. Cardiology was consulted. The patient was taken to the [facility] for placement of a temporary venous pacemaker. The patient was brought in back to the intensive care unit intubated on a mechanical ventilator. The patient was sedated and paralyzed with a combination of propofol an endovascular suspected and the patient was requiring pressors including norepinephrine infusion. The patient was also on a bicarb infusion with D5 and 150 mEq of sodium bicarbonate running at 150 mL an hour. IV access was established. The patient was covered with a combination of Azactam, Flagyl and vancomycin as broad-spectrum antibiotic coverage. Chest x-ray showed the possibility of a lower lobe pneumonia bilaterally. As such, the patient was treated for acute hypoxic respiratory failure for the above-mentioned reasons. The patient as mentioned was in a third-degree AV block and required a temporary transvenous pacemaker insertion. The patient was also in acute kidney injury related to above-mentioned comorbidities in addition to a shock liver. Note that the patient's also had a right-sided cardiac cath revealing normal pulmonary artery pressures in the pulmonary capillary wedge pressure was only 14 mmHg , and echocardiogram that was done showed a normal LV systolic function with an ejection fraction of 55-60%, RV was within normal, LAD was within normal limits, mild mitral regurgitation, moderate tricuspid regurgitation and the right posterior systolic pressure was estimated to be 28 mmHg. Noted the patient's cognitive testing came back negative. The white cell count was at 34 at time of admission and came up to 41. The patient had 24% bandemia. The initial blood gases was consistent with severe metabolic acidosis with a pH of 7.03 and a pCO2 of 44 and pO2 of 87. Subsequent blood gases showed improvement and acid base status. The patient was in acute kidney injury with a creatinine of 2.24 and this subsequently improved.. Lactic acid initially was at 6.5 down to 2.9. Troponin peaked at 0.16. ProBNP level was 14,300 and the patient's pro calcitonin level was 25.3. UA was negative. The patient currently has a left IJ triple-lumen catheter in place. He is currently intubated on a mechanical ventilator. He is an assist-control mode with tidal volume of 450, FiO2 of 60% with a PEEP of 15 and a rate of 26. Probable was running at 50 mcg/kg per minute. Nimbex is running at 1.5 mcg/kg per minute. Norepinephrine infusion is running at 0.06 g per kilograms per minute. She is living vital high protein at the rate of 20 mL an hour. The patient is afebrile this morning. The chest x-ray still showing diffuse but the pulmonary infiltrates perihilar and these infiltrates are quite dense.The white cell count is improved and is currently down to 17. The blood gases from today showed a pH of 7.57 with a pCO2 of 31 and pO2 162 as such the patient has developed a combination of respiratory and metabolic alkalosis the renal function is improved in the creatinine is normalized is down to 1.1. His adequate urine output. Lactic acid level is down to 2.4. Cultures are still all. His cardiac rhythm is currently paced at the rate of 60 with an underlying rhythm of third-degree AV block. Objective - Vital Signs Vital signs: Vital Signs Temp 98.2 F 09/10/20 04:00 Pulse 60 09/10/20 06:00 Resp 26 H 09/10/20 06:00 BP 89/60 09/10/20 06:00 Pulse Ox 97 09/10/20 06:00 Intake & Output 09/09/20 09/09/20 09/10/20 06:59 18:59 06:59 Intake Total 2742.485 2618.652 1691.513 Output Total 545 1270 1430 Balance 2197.485 1348.652 261.513 Weight 82.1 kg 82.1 kg Intake: IV 10 1800 1350 0.9% sodium chloride for 10 transducer Dextrose 5% in Water 1, 1800 1350 000 ml @ 150 mls/hr IV . Q7H40M [facility] with Sodium Bicarb (1 Meq/ml) 150 ml Rx#:[id number] Intake, IV Titration 2732.485 818.652 341.513 Amount Aztreonam 2 gm In Sodium 100 Chloride 0.9% 100 ml @ 33 .3 mls/hr IVPB Q8HR [facility] Rx#:[id number] Cisatracurium 200 mg In 15.531 87.753 Sodium Chloride 0.9% 180 ml @ 2 MCG/KG/MIN 8.709 mls/hr IV .[id number] [facility] Rx #:[id number] DOPamine DRIP 800 mg In 13.064 Water For Injection 1 250ml.bag @ 5 MCG/KG/MIN 6.804 mls/hr IV .Q24H [facility] Rx#:[id number] Dextrose 5% in Water 1, 1800 000 ml @ 100 mls/hr IV . [id number] [facility] with Sodium Bicarb (1 Meq/ml) 150 ml Rx#:[id number] Norepinephrine 4 mg In 251.926 508 Sodium Chloride 0.9% 250 ml @ 0.05 MCG/KG/MIN 13. 826 mls/hr IV .[id number] [facility] Rx#:[id number] Norepinephrine 8 mg In 91.743 69.607 Sodium Chloride 0.9% 250 ml @ 0.19 MCG/KG/MIN 30. 184 mls/hr IV .Q8H33M [facility] Rx#:[id number] metroNIDAZOLE-NS PMX 500 200 mg In Saline 1 100ml.bag @ 100 mls/hr IVPB Q8H [facility] Rx#:[id number] propofoL 1,000 mg In 251.964 218.909 184.153 Empty Bag 1 bag @ Titrate IV .Q0M [facility] Rx#: [id number] propofoL 100 ml @ 0 mls/ 100 hr IV .STK-MED ONE Rx#: [id number] Output: Urine 545 1270 1430 Other: Voiding Method Indwelling Catheter Indwelling Catheter Indwelling Catheter # Bowel Movements 0 ABP, PAP, CO, CI - Last Documented Arterial Blood Pressure 80/41 - Exam Gen. appearance the patient is sedated, comfortable, paralyzed, centers the mechanical ventilator. Head exam was generally normal. There was no scleral icterus or corneal arcus. Mucous membranes were moist. Neck was supple and without jugular venous distension, thyromegaly, or carotid bruits. Carotids were easily palpable bilaterally. There was no adenopathy. Orogastric and orotracheal tube are both in place and the patient also has a left IJ triple lumen catheter in the right IJ temporary pacemaker, transvenous. Lungs were clear to auscultation and percussion, and with normal diaphragmatic excursion. No wheezes or rales were noted. Cardiac exam revealed the PMI to be normally situated and sized. The rhythm was regular and no extrasystoles were noted during several minutes of auscultation. The first and second heart sounds were normal and physiologic splitting of the second heart sound was noted. There were no murmurs, rubs, clicks, or gallops. Abdominal exam revealed normal bowel sounds. The abdomen was soft, non-tender, and without masses, organomegaly, or appreciable enlargement of the abdominal aorta. Examination of the extremities revealed easily palpable radial, femoral and pedal pulses. There was no cyanosis, clubbing or edema. Examination of the skin revealed no evidence of significant rashes, suspicious appearing nevi or other concerning lesions. Neurologically, the patient is sedated and paralyzed - Labs CBC & Chem 7: 09/10/20 05:00 09/10/20 05:00 Labs: Abnormal Lab Results - Last 24 Hours (Table) 09/08/20 09/08/20 09/08/20 Range/Units 13:42 16:35 19:28 WBC (3.8-10.6) k/uL RBC (4.30-5.90) m/uL Hgb (13.0-17.5) gm/dL Hct (39.0-53.0) % Neutrophils # (1.3-7.7) k/uL ABG pH (7.35-7.45) ABG pCO2 (35-45) mmHg ABG pO2 (83-108) mmHg ABG HCO3 (21-25) mmol/L ABG Total CO2 (19-24) mmol/L ABG O2 Saturation (94-97) % Sodium (137-145) mmol/L Potassium (3.5-5.1) mmol/L BUN (9-20) mg/dL Creatinine (0.66-1.25) mg/dL Glucose (74-99) mg/dL POC Glucose (mg/dL) 221 H 140 H 205 H (75-99) mg/dL Plasma Lactic Acid Romain (0.7-2.0) mmol/L Calcium (8.4-10.2) mg/dL AST (17-59) U/L ALT (4-49) U/L Total Protein (6.3-8.2) g/dL Albumin (3.5-5.0) g/dL Procalcitonin (0.02-0.09) ng/mL Urine Blood (Negative) Ur Leukocyte Esterase (Negative) Urine WBC (0-5) /hpf Amorphous Sediment (None) /hpf Urine Mucus (None) /hpf 09/08/20 09/09/20 09/09/20 Range/Units 23:32 03:25 06:03 WBC (3.8-10.6) k/uL RBC (4.30-5.90) m/uL Hgb (13.0-17.5) gm/dL Hct (39.0-53.0) % Neutrophils # (1.3-7.7) k/uL ABG pH (7.35-7.45) ABG pCO2 (35-45) mmHg ABG pO2 (83-108) mmHg ABG HCO3 (21-25) mmol/L ABG Total CO2 (19-24) mmol/L ABG O2 Saturation (94-97) % Sodium (137-145) mmol/L Potassium (3.5-5.1) mmol/L BUN (9-20) mg/dL Creatinine (0.66-1.25) mg/dL Glucose (74-99) mg/dL POC Glucose (mg/dL) 184 H (75-99) mg/dL Plasma Lactic Acid Romain 5.2 H* (0.7-2.0) mmol/L Calcium (8.4-10.2) mg/dL AST (17-59) U/L ALT (4-49) U/L Total Protein (6.3-8.2) g/dL Albumin (3.5-5.0) g/dL Procalcitonin 25.30 H (0.02-0.09) ng/mL Urine Blood (Negative) Ur Leukocyte Esterase (Negative) Urine WBC (0-5) /hpf Amorphous Sediment (None) /hpf Urine Mucus (None) /hpf 09/09/20 09/09/20 09/09/20 Range/Units 08:37 11:29 11:32 WBC (3.8-10.6) k/uL RBC (4.30-5.90) m/uL Hgb (13.0-17.5) gm/dL Hct (39.0-53.0) % Neutrophils # (1.3-7.7) k/uL ABG pH (7.35-7.45) ABG pCO2 33 L (35-45) mmHg ABG pO2 118 H (83-108) mmHg ABG HCO3 (21-25) mmol/L ABG Total CO2 (19-24) mmol/L ABG O2 Saturation 98.2 H (94-97) % Sodium (137-145) mmol/L Potassium (3.5-5.1) mmol/L BUN (9-20) mg/dL Creatinine (0.66-1.25) mg/dL Glucose (74-99) mg/dL POC Glucose (mg/dL) 191 H 198 H (75-99) mg/dL Plasma Lactic Acid Romain (0.7-2.0) mmol/L Calcium (8.4-10.2) mg/dL AST (17-59) U/L ALT (4-49) U/L Total Protein (6.3-8.2) g/dL Albumin (3.5-5.0) g/dL Procalcitonin (0.02-0.09) ng/mL Urine Blood (Negative) Ur Leukocyte Esterase (Negative) Urine WBC (0-5) /hpf Amorphous Sediment (None) /hpf Urine Mucus (None) /hpf 09/09/20 09/09/20 09/09/20 Range/Units 13:25 17:47 17:50 WBC (3.8-10.6) k/uL RBC (4.30-5.90) m/uL Hgb (13.0-17.5) gm/dL Hct (39.0-53.0) % Neutrophils # (1.3-7.7) k/uL ABG pH (7.35-7.45) ABG pCO2 (35-45) mmHg ABG pO2 (83-108) mmHg ABG HCO3 (21-25) mmol/L ABG Total CO2 (19-24) mmol/L ABG O2 Saturation (94-97) % Sodium (137-145) mmol/L Potassium (3.5-5.1) mmol/L BUN (9-20) mg/dL Creatinine (0.66-1.25) mg/dL Glucose (74-99) mg/dL POC Glucose (mg/dL) 142 H (75-99) mg/dL Plasma Lactic Acid Romain 3.0 H* (0.7-2.0) mmol/L Calcium (8.4-10.2) mg/dL AST (17-59) U/L ALT (4-49) U/L Total Protein (6.3-8.2) g/dL Albumin (3.5-5.0) g/dL Procalcitonin (0.02-0.09) ng/mL Urine Blood Trace H (Negative) Ur Leukocyte Esterase Large H (Negative) Urine WBC 14 H (0-5) /hpf Amorphous Sediment Occasional H (None) /hpf Urine Mucus Rare H (None) /hpf 09/09/20 09/09/20 09/09/20 Range/Units 19:34 19:34 23:00 WBC (3.8-10.6) k/uL RBC (4.30-5.90) m/uL Hgb (13.0-17.5) gm/dL Hct (39.0-53.0) % Neutrophils # (1.3-7.7) k/uL ABG pH (7.35-7.45) ABG pCO2 (35-45) mmHg ABG pO2 (83-108) mmHg ABG HCO3 (21-25) mmol/L ABG Total CO2 (19-24) mmol/L ABG O2 Saturation (94-97) % Sodium 132 L (137-145) mmol/L Potassium 3.4 L (3.5-5.1) mmol/L BUN 25 H (9-20) mg/dL Creatinine 1.38 H (0.66-1.25) mg/dL Glucose 157 H (74-99) mg/dL POC Glucose (mg/dL) (75-99) mg/dL Plasma Lactic Acid Romain 2.9 H* 2.8 H* (0.7-2.0) mmol/L Calcium 6.7 L (8.4-10.2) mg/dL AST (17-59) U/L ALT (4-49) U/L Total Protein (6.3-8.2) g/dL Albumin (3.5-5.0) g/dL Procalcitonin (0.02-0.09) ng/mL Urine Blood (Negative) Ur Leukocyte Esterase (Negative) Urine WBC (0-5) /hpf Amorphous Sediment (None) /hpf Urine Mucus (None) /hpf 09/09/20 09/10/20 09/10/20 Range/Units 23:01 01:30 05:00 WBC 17.6 H (3.8-10.6) k/uL RBC 3.72 L (4.30-5.90) m/uL Hgb 12.0 L (13.0-17.5) gm/dL Hct 35.0 L (39.0-53.0) % Neutrophils # 15.7 H (1.3-7.7) k/uL ABG pH (7.35-7.45) ABG pCO2 (35-45) mmHg ABG pO2 (83-108) mmHg ABG HCO3 (21-25) mmol/L ABG Total CO2 (19-24) mmol/L ABG O2 Saturation (94-97) % Sodium (137-145) mmol/L Potassium (3.5-5.1) mmol/L BUN (9-20) mg/dL Creatinine (0.66-1.25) mg/dL Glucose (74-99) mg/dL POC Glucose (mg/dL) 156 H (75-99) mg/dL Plasma Lactic Acid Romain 2.1 H* (0.7-2.0) mmol/L Calcium (8.4-10.2) mg/dL AST (17-59) U/L ALT (4-49) U/L Total Protein (6.3-8.2) g/dL Albumin (3.5-5.0) g/dL Procalcitonin (0.02-0.09) ng/mL Urine Blood (Negative) Ur Leukocyte Esterase (Negative) Urine WBC (0-5) /hpf Amorphous Sediment (None) /hpf Urine Mucus (None) /hpf 09/10/20 09/10/20 09/10/20 Range/Units 05:00 05:00 05:00 WBC (3.8-10.6) k/uL RBC (4.30-5.90) m/uL Hgb (13.0-17.5) gm/dL Hct (39.0-53.0) % Neutrophils # (1.3-7.7) k/uL ABG pH 7.57 H* (7.35-7.45) ABG pCO2 31 L (35-45) mmHg ABG pO2 162 H (83-108) mmHg ABG HCO3 29 H (21-25) mmol/L ABG Total CO2 30 H (19-24) mmol/L ABG O2 Saturation 99.0 H (94-97) % Sodium 132 L (137-145) mmol/L Potassium (3.5-5.1) mmol/L BUN 24 H (9-20) mg/dL Creatinine (0.66-1.25) mg/dL Glucose 148 H (74-99) mg/dL POC Glucose (mg/dL) (75-99) mg/dL Plasma Lactic Acid Romain 2.4 H* (0.7-2.0) mmol/L Calcium 6.9 L (8.4-10.2) mg/dL AST 264 H (17-59) U/L ALT 273 H (4-49) U/L Total Protein 4.2 L (6.3-8.2) g/dL Albumin 2.1 L (3.5-5.0) g/dL Procalcitonin (0.02-0.09) ng/mL Urine Blood (Negative) Ur Leukocyte Esterase (Negative) Urine WBC (0-5) /hpf Amorphous Sediment (None) /hpf Urine Mucus (None) /hpf 09/10/20 Range/Units 05:11 WBC (3.8-10.6) k/uL RBC (4.30-5.90) m/uL Hgb (13.0-17.5) gm/dL Hct (39.0-53.0) % Neutrophils # (1.3-7.7) k/uL ABG pH (7.35-7.45) ABG pCO2 (35-45) mmHg ABG pO2 (83-108) mmHg ABG HCO3 (21-25) mmol/L ABG Total CO2 (19-24) mmol/L ABG O2 Saturation (94-97) % Sodium (137-145) mmol/L Potassium (3.5-5.1) mmol/L BUN (9-20) mg/dL Creatinine (0.66-1.25) mg/dL Glucose (74-99) mg/dL POC Glucose (mg/dL) 151 H (75-99) mg/dL Plasma Lactic Acid Romain (0.7-2.0) mmol/L Calcium (8.4-10.2) mg/dL AST (17-59) U/L ALT (4-49) U/L Total Protein (6.3-8.2) g/dL Albumin (3.5-5.0) g/dL Procalcitonin (0.02-0.09) ng/mL Urine Blood (Negative) Ur Leukocyte Esterase (Negative) Urine WBC (0-5) /hpf Amorphous Sediment (None) /hpf Urine Mucus (None) /hpf Microbiology - Last 24 Hours (Table) 09/08/20 14:41 Blood Culture - Preliminary Blood No Growth after 24 hours 09/08/20 11:27 Blood Culture - Preliminary Blood No Growth after 24 hours 09/08/20 23:32 Gram Stain - Preliminary Sputum Sputum Culture - Preliminary Assessment and Plan Plan: 1 acute hypoxic respiratory failure with development of bilateral pulmonary infiltrates/pneumonia with possibly component of CHF complicating overall presentation. Currently intubated on a mechanical ventilator. Currently sedated and paralyzed. The chest x-ray still showing diffuse but the pulmonary infiltrates, perihilar and the cultures are all negative. Note that the romero virus/Covid 19 screening 2 was also negative. The patient is afebrile. White cell count is improving. Remains intubated on a mechanical ventilator and the blood gases showing a combination of respiratory and metabolic alkalosis. 2 hypotension, consider septic shock, adequately resuscitated IV fluids and the patient is currently on low-dose norepinephrine infusion at 0.06 mcg/kg per minute 3 severe lactic acidosis with a lactic acid of 6.9, improving, and the lactic acid level is down to 2.4 4 acute kidney injury secondary to above, improving 5 third-degree AV block with severe bradycardia post-insertion of a chance venous pacemaker on 09/08/2020 the patient's current rhythm, the patient is currently paced at the rate of 60 6 troponin leak with elevation of troponin levels, likely secondary to demand ischemia 7 severe lactic acidosis, improving 8 hyponatremia, improved 9 severe leukocytosis with bandemia, most likely infectious in nature especially with elevation of the pro-calcitonin level. The levels of white cell are also improving. 10 hypothyroidism maintained on Synthroid on outpatient basis And Continue ventilator support Drop the tidal volume down to 400 Stop the bicarb infusion and switch this patient normal saline at the rate of 100 mL an hour Monitor CVP Increase the baseline heart rate up to 80 beats per minute to augment his cardiac output. The patient remains on low dose of norepinephrine infusion Stop the Nimbex and give the patient paralytic holiday Keep the patient on propofol Cultures are all negative. High concern for bacterial infection. We'll continue same antibiotic coverage including a combination of Flagyl, as aztreonam and vancomycin. We'll consider bronchoscopy and bronchial alveolar lavage today to establish an microbial diagnoses regarding his bilateral pneumonia. Chest x-ray findings are essentially unchanged Continue enteral feeding for nutritional support Continue following up this patient along with aggressive the consultants. We'll continue to follow. There is a critically care evaluation>30 min Time with Patient: Greater than 30
[2020-09-10] MEDS: DEXTROSE 5% IN WATER 1,000 ML with SODIUM BICARB (1 MEQ/ML) 150 ML IV SCH (07:03)
[2020-09-10] MEDS: NOREPINEPHRINE 8 MG in SODIUM CHLORIDE 0.9% 250 ML IV SCH ×2 (07:06→14:11)
[2020-09-10] MEDS: SODIUM CHLORIDE 0.9% 1,000 ML IV SCH ×3 (07:08→22:11)
[2020-09-10] MEDS: LEVOTHYROXINE 112 MCG TAB PO SCH (07:10)
[2020-09-10] MEDS: metroNIDAZOLE-NS PMX 500 MG in SALINE 1 100ML.BAG IVPB SCH ×3 (07:11→22:12)
[2020-09-10] MEDS: CHLORHEXIDINE GLUCONATE 15 ML CUP MUCOUS MEM SCH ×2 (08:06→20:15)
[2020-09-10] MEDS: HEPARIN SODIUM,PORCINE 5,000 UNIT/ML 1 ML VIAL SQ SCH ×2 (08:06→18:33)
[2020-09-10] MEDS: AZTREONAM 2 GM in SODIUM CHLORIDE 0.9% 100 ML IVPB SCH ×2 (08:19→19:28)
--- NOTE | 2020-09-10 09:25 | XR ---
EXAMINATION TYPE: XR chest 1V portable DATE OF EXAM: 09/10/2020 COMPARISON: Prior chest x-ray 09/09/2020 HISTORY: Intubated TECHNIQUE: Single frontal view of the chest is obtained. FINDINGS: Endotracheal tube, NG tube, left jugular central venous catheter, right jugular central ve nous transvenous pacemaker are all again noted, distal tip of the central venous catheter is within t he right atrium, transvenous pacemaker is near the right atrial ventricle junction level. Bilateral a irspace disease is present in the perihilar regions. No evident pneumothorax or sizable effusion. Hea rt is stable. Aorta is dense. IMPRESSION: Correlate for pulmonary edema, pneumonia, ARDS.
--- NOTE | 2020-09-10 12:31 | P.PN ---
Subjective Progress Note Date: 09/10/20 The patient was seen and examined at the bedside. He continues to be on mechanical ventilation. Patient's bicarbonate drip was discontinued and his Levophed infusion was also down titrated. He is also receiving a sedation holiday today. Objective - Vital Signs Vital signs: Vital Signs Temp 97.2 F L 09/10/20 08:00 Pulse 80 09/10/20 10:00 Resp 26 H 09/10/20 10:00 BP 81/58 09/10/20 07:00 Pulse Ox 95 09/10/20 10:00 Intake & Output 09/09/20 09/10/20 09/10/20 18:59 06:59 18:59 Intake Total 2618.652 1791.513 787.736 Output Total 1270 1430 370 Balance 1348.652 361.513 417.736 Weight 82.1 kg Intake: IV 1800 1350 559 0.9 NACL 300 Aztreonam 2 gm In Sodium 100 Chloride 0.9% 100 ml @ 33 .3 mls/hr IVPB Q8HR [facility] Rx#:[id number] Dextrose 5% in Water 1, 1800 1350 150 000 ml @ 150 mls/hr IV . Q7H40M [facility] with Sodium Bicarb (1 Meq/ml) 150 ml Rx#:[id number] pressure bag 9 Intake, IV Titration 818.652 441.513 158.736 Amount Cisatracurium 200 mg In 87.753 41.808 Sodium Chloride 0.9% 180 ml @ 2 MCG/KG/MIN 8.709 mls/hr IV .[id number] [facility] Rx #:[id number] Norepinephrine 4 mg In 508 Sodium Chloride 0.9% 250 ml @ 0.05 MCG/KG/MIN 13. 826 mls/hr IV .[id number] [facility] Rx#:[id number] Norepinephrine 8 mg In 91.743 69.607 37.702 Sodium Chloride 0.9% 250 ml @ 0.19 MCG/KG/MIN 30. 184 mls/hr IV .Q8H33M [facility] Rx#:[id number] propofoL 1,000 mg In 218.909 284.153 79.226 Empty Bag 1 bag @ Titrate IV .Q0M [facility] Rx#: [id number] Tube Feeding 70 Output: Urine 1270 1430 370 Other: Voiding Method Indwelling Catheter Indwelling Catheter Indwelling Catheter ABP, PAP, CO, CI - Last Documented Arterial Blood Pressure 120/52 - Exam General: Sedated and intubated male, appears stated age, normal weight HEENT: NC/AT, anicteric sclerae, PERRL Cardiovascular: S1/S2 wnl, no murmurs, rubs, or gallops Lungs: Diffuse bilateral rhonchi, no wheezing the patient Abdominal: Large ventral hernia, no rigidity noted Skin: Warm, dry Extremities: No edema Psychiatric: Unable to assess Neuro: Gag reflex intact, patient unresponsive to noxious stimuli - Labs CBC & Chem 7: 09/10/20 05:00 09/10/20 05:00 Labs: Abnormal Lab Results - Last 24 Hours (Table) 09/08/20 09/08/20 09/08/20 Range/Units 16:35 19:28 23:32 WBC (3.8-10.6) k/uL RBC (4.30-5.90) m/uL Hgb (13.0-17.5) gm/dL Hct (39.0-53.0) % Neutrophils # (1.3-7.7) k/uL ABG pH (7.35-7.45) ABG pCO2 (35-45) mmHg ABG pO2 (83-108) mmHg ABG HCO3 (21-25) mmol/L ABG Total CO2 (19-24) mmol/L ABG O2 Saturation (94-97) % Sodium (137-145) mmol/L Potassium (3.5-5.1) mmol/L BUN (9-20) mg/dL Creatinine (0.66-1.25) mg/dL Glucose (74-99) mg/dL POC Glucose (mg/dL) 140 H 205 H 184 H (75-99) mg/dL Plasma Lactic Acid Romain (0.7-2.0) mmol/L Calcium (8.4-10.2) mg/dL AST (17-59) U/L ALT (4-49) U/L Total Protein (6.3-8.2) g/dL Albumin (3.5-5.0) g/dL Procalcitonin (0.02-0.09) ng/mL Urine Blood (Negative) Ur Leukocyte Esterase (Negative) Urine WBC (0-5) /hpf Amorphous Sediment (None) /hpf Urine Mucus (None) /hpf 09/09/20 09/09/20 09/09/20 Range/Units 03:25 08:37 13:25 WBC (3.8-10.6) k/uL RBC (4.30-5.90) m/uL Hgb (13.0-17.5) gm/dL Hct (39.0-53.0) % Neutrophils # (1.3-7.7) k/uL ABG pH (7.35-7.45) ABG pCO2 (35-45) mmHg ABG pO2 (83-108) mmHg ABG HCO3 (21-25) mmol/L ABG Total CO2 (19-24) mmol/L ABG O2 Saturation (94-97) % Sodium (137-145) mmol/L Potassium (3.5-5.1) mmol/L BUN (9-20) mg/dL Creatinine (0.66-1.25) mg/dL Glucose (74-99) mg/dL POC Glucose (mg/dL) 191 H (75-99) mg/dL Plasma Lactic Acid Romain 3.0 H* (0.7-2.0) mmol/L Calcium (8.4-10.2) mg/dL AST (17-59) U/L ALT (4-49) U/L Total Protein (6.3-8.2) g/dL Albumin (3.5-5.0) g/dL Procalcitonin 25.30 H (0.02-0.09) ng/mL Urine Blood (Negative) Ur Leukocyte Esterase (Negative) Urine WBC (0-5) /hpf Amorphous Sediment (None) /hpf Urine Mucus (None) /hpf 09/09/20 09/09/20 09/09/20 Range/Units 17:47 17:50 19:34 WBC (3.8-10.6) k/uL RBC (4.30-5.90) m/uL Hgb (13.0-17.5) gm/dL Hct (39.0-53.0) % Neutrophils # (1.3-7.7) k/uL ABG pH (7.35-7.45) ABG pCO2 (35-45) mmHg ABG pO2 (83-108) mmHg ABG HCO3 (21-25) mmol/L ABG Total CO2 (19-24) mmol/L ABG O2 Saturation (94-97) % Sodium 132 L (137-145) mmol/L Potassium 3.4 L (3.5-5.1) mmol/L BUN 25 H (9-20) mg/dL Creatinine 1.38 H (0.66-1.25) mg/dL Glucose 157 H (74-99) mg/dL POC Glucose (mg/dL) 142 H (75-99) mg/dL Plasma Lactic Acid Romain (0.7-2.0) mmol/L Calcium 6.7 L (8.4-10.2) mg/dL AST (17-59) U/L ALT (4-49) U/L Total Protein (6.3-8.2) g/dL Albumin (3.5-5.0) g/dL Procalcitonin (0.02-0.09) ng/mL Urine Blood Trace H (Negative) Ur Leukocyte Esterase Large H (Negative) Urine WBC 14 H (0-5) /hpf Amorphous Sediment Occasional H (None) /hpf Urine Mucus Rare H (None) /hpf 09/09/20 09/09/20 09/09/20 Range/Units 19:34 23:00 23:01 WBC (3.8-10.6) k/uL RBC (4.30-5.90) m/uL Hgb (13.0-17.5) gm/dL Hct (39.0-53.0) % Neutrophils # (1.3-7.7) k/uL ABG pH (7.35-7.45) ABG pCO2 (35-45) mmHg ABG pO2 (83-108) mmHg ABG HCO3 (21-25) mmol/L ABG Total CO2 (19-24) mmol/L ABG O2 Saturation (94-97) % Sodium (137-145) mmol/L Potassium (3.5-5.1) mmol/L BUN (9-20) mg/dL Creatinine (0.66-1.25) mg/dL Glucose (74-99) mg/dL POC Glucose (mg/dL) 156 H (75-99) mg/dL Plasma Lactic Acid Romain 2.9 H* 2.8 H* (0.7-2.0) mmol/L Calcium (8.4-10.2) mg/dL AST (17-59) U/L ALT (4-49) U/L Total Protein (6.3-8.2) g/dL Albumin (3.5-5.0) g/dL Procalcitonin (0.02-0.09) ng/mL Urine Blood (Negative) Ur Leukocyte Esterase (Negative) Urine WBC (0-5) /hpf Amorphous Sediment (None) /hpf Urine Mucus (None) /hpf 09/10/20 09/10/20 09/10/20 Range/Units 01:30 05:00 05:00 WBC 17.6 H (3.8-10.6) k/uL RBC 3.72 L (4.30-5.90) m/uL Hgb 12.0 L (13.0-17.5) gm/dL Hct 35.0 L (39.0-53.0) % Neutrophils # 15.7 H (1.3-7.7) k/uL ABG pH (7.35-7.45) ABG pCO2 (35-45) mmHg ABG pO2 (83-108) mmHg ABG HCO3 (21-25) mmol/L ABG Total CO2 (19-24) mmol/L ABG O2 Saturation (94-97) % Sodium 132 L (137-145) mmol/L Potassium (3.5-5.1) mmol/L BUN 24 H (9-20) mg/dL Creatinine (0.66-1.25) mg/dL Glucose 148 H (74-99) mg/dL POC Glucose (mg/dL) (75-99) mg/dL Plasma Lactic Acid Romain 2.1 H* (0.7-2.0) mmol/L Calcium 6.9 L (8.4-10.2) mg/dL AST 264 H (17-59) U/L ALT 273 H (4-49) U/L Total Protein 4.2 L (6.3-8.2) g/dL Albumin 2.1 L (3.5-5.0) g/dL Procalcitonin (0.02-0.09) ng/mL Urine Blood (Negative) Ur Leukocyte Esterase (Negative) Urine WBC (0-5) /hpf Amorphous Sediment (None) /hpf Urine Mucus (None) /hpf 09/10/20 09/10/20 09/10/20 Range/Units 05:00 05:00 05:11 WBC (3.8-10.6) k/uL RBC (4.30-5.90) m/uL Hgb (13.0-17.5) gm/dL Hct (39.0-53.0) % Neutrophils # (1.3-7.7) k/uL ABG pH 7.57 H* (7.35-7.45) ABG pCO2 31 L (35-45) mmHg ABG pO2 162 H (83-108) mmHg ABG HCO3 29 H (21-25) mmol/L ABG Total CO2 30 H (19-24) mmol/L ABG O2 Saturation 99.0 H (94-97) % Sodium (137-145) mmol/L Potassium (3.5-5.1) mmol/L BUN (9-20) mg/dL Creatinine (0.66-1.25) mg/dL Glucose (74-99) mg/dL POC Glucose (mg/dL) 151 H (75-99) mg/dL Plasma Lactic Acid Romani 2.4 H* (0.7-2.0) mmol/L Calcium (8.4-10.2) mg/dL AST (17-59) U/L ALT (4-49) U/L Total Protein (6.3-8.2) g/dL Albumin (3.5-5.0) g/dL Procalcitonin (0.02-0.09) ng/mL Urine Blood (Negative) Ur Leukocyte Esterase (Negative) Urine WBC (0-5) /hpf Amorphous Sediment (None) /hpf Urine Mucus (None) /hpf Microbiology - Last 24 Hours (Table) 09/08/20 14:41 Blood Culture - Preliminary Blood No Growth after 24 hours 09/08/20 11:27 Blood Culture - Preliminary Blood No Growth after 24 hours 09/08/20 23:32 Gram Stain - Preliminary Sputum Sputum Culture - Preliminary Assessment and Plan Plan: Unresponsiveness, suspected secondary to bradycardia Acute hypoxic respiratory failure, on mechanical ventilation -Status post transvenous pacer for third-degree AV block with bradycardia on 09/08/20 -Infectious disease following: Patient on aztreonam, Levaquin, Flagyl, and vancomycin -Follow-up cultures -Echocardiogram unremarkable with LVEF 55-60% and normal LV wall thickness -COVID 19 PCR negative -Vent management as per the Drawer In Hand Lactic acidosis -Improved -Patient on normal saline infusion -Bicarbonate infusion held due to alkalosis on the ABG -Nephrology following Metabolic alkalosis -Likely secondary to bicarbonate infusion -Held for now NAN -Significantly improved -Continue with fluid resuscitation -Continue to monitor BMP with nephrology following Abnormal LFTs -Likely due to poor perfusion of the liver -Continue to monitor for now Hyponatremia -Gradually improving with IV fluids -Continue to monitor Hyperglycemia -A1c 5.4 -Hyperglycemia likely secondary to acute stress -Continue to monitor for now Ventral hernia -Outpatient follow-up DVT prophylaxis -Heparin Anticipated discharge place: Home A total of 35 minutes was spent on the care of this complex patient more than 50% of the time was spent in counseling and care coordination.
--- NOTE | 2020-09-10 13:00 | PN ---
PROGRESS NOTE The patient is seen for followup for acute kidney injury mostly ATN, currently nonoliguric. The patient remains on the vent. Levophed is significantly decreased from yesterday. Blood pressure was 100/49 this morning, heart rate 80 per minute. He is afebrile. FiO2 is at 50%. Urine output is about 75-100 mL an hour. The patient is tolerating tube feeds. PHYSICAL EXAMINATION: On examination today, patient remains on the vent. Bilateral breath sounds are heard. Abdomen is soft. Examination of lower extremities shows edema 1+ bilaterally. [employer] exam cannot be performed. LABS: Labs show hemoglobin 12.0, sodium 132, potassium 3.5, chloride 101, CO2 is 29, BUN 24, creatinine 1.12. ASSESSMENT: 1. Acute kidney injury, acute tubular necrosis, nonoliguric, currently improved. Creatinine down to 1.1 from 2.2 on initial admission. 2. Metabolic alkalosis while patient was on bicarb drip, currently discontinued. 3. Metabolic acidosis associated with acute kidney injury, hypotension, sepsis, status post bicarb drip. 4. Lactic acidosis secondary to above. 5. Third-degree heart block, status post transvenous pacemaker placement. 6. Acute hypoxic respiratory failure, maintained on antibiotics. 7. Hypovolemic hyponatremia. PLAN: Agree with discontinuation of bicarb drip. Repeat labs in a.m. Continue normal saline. Monitor electrolytes. MMODL / IJN: [id number] /
[2020-09-10 13:30] LABS: Glucose,Whole Blood 106 mg/dL (75-99)
[2020-09-10] MEDS: VANCOMYCIN 1,250 MG in SODIUM CHLORIDE 0.9% 250 ML IVPB SCH (13:48)
--- NOTE | 2020-09-10 14:16 | P.PN ---
Subjective Progress Note Date: 09/10/20 Principal diagnosis: Complete heart block This is a 74-year-old gentleman with multiple comorbid conditions was admitted to the hospital with pneumonia and sepsis and we involved in his care because of complete heart block requiring temporary pacemaker. The patient was seen this morning. He continues to be hemodynamically unstable and requiring vasopressors. He is not on any AV christi galilea at this point. He is intubated and mechanical ventilation. The temporary pacemaker was still there. We'll continue the temporary pacemaker at this point and continue monitor the heart rhythm. He was not on any AV christi galilea agents before he presented to the hospital. The echocardiogram revealed normal left ventricular systolic function. Objective - Vital Signs Vital signs: Vital Signs Temp 97.2 F L 09/10/20 12:00 Pulse 80 09/10/20 14:00 Resp 26 H 09/10/20 14:00 BP 81/58 09/10/20 07:00 Pulse Ox 96 09/10/20 14:00 Intake & Output 09/09/20 09/10/20 09/10/20 18:59 06:59 18:59 Intake Total 2618.652 0159.641 2552.035 Output Total 1270 1430 745 Balance 1348.652 361.513 688.035 Weight 82.1 kg Intake: IV 1800 1350 971 0.9 NACL 700 Aztreonam 2 gm In Sodium 100 Chloride 0.9% 100 ml @ 33 .3 mls/hr IVPB Q8HR [facility] Rx#:[id number] Dextrose 5% in Water 1, 1800 1350 150 000 ml @ 150 mls/hr IV . Q7H40M [facility] with Sodium Bicarb (1 Meq/ml) 150 ml Rx#:[id number] pressure bag 21 Intake, IV Titration 818.652 441.513 302.035 Amount Cisatracurium 200 mg In 87.753 41.808 Sodium Chloride 0.9% 180 ml @ 2 MCG/KG/MIN 8.709 mls/hr IV .[id number] [facility] Rx #:[id number] Norepinephrine 4 mg In 508 Sodium Chloride 0.9% 250 ml @ 0.05 MCG/KG/MIN 13. 826 mls/hr IV .[id number] [facility] Rx#:[id number] Norepinephrine 8 mg In 91.743 69.607 105.220 Sodium Chloride 0.9% 250 ml @ 0.19 MCG/KG/MIN 30. 184 mls/hr IV .Q8H33M [facility] Rx#:[id number] propofoL 1,000 mg In 218.909 284.153 155.007 Empty Bag 1 bag @ Titrate IV .Q0M [facility] Rx#: [id number] Tube Feeding 160 Output: Urine 1270 1430 745 Other: Voiding Method Indwelling Catheter Indwelling Catheter Indwelling Catheter ABP, PAP, CO, CI - Last Documented Arterial Blood Pressure 101/52 - Constitutional General appearance: Present: no acute distress - Respiratory Respiratory: bilateral: diminished - Cardiovascular Heart sounds: normal: S1, S2 - Labs CBC & Chem 7: 09/10/20 05:00 09/10/20 05:00 Labs: Abnormal Lab Results - Last 24 Hours (Table) 09/08/20 09/08/20 09/08/20 Range/Units 16:35 19:28 23:32 WBC (3.8-10.6) k/uL RBC (4.30-5.90) m/uL Hgb (13.0-17.5) gm/dL Hct (39.0-53.0) % Neutrophils # (1.3-7.7) k/uL ABG pH (7.35-7.45) ABG pCO2 (35-45) mmHg ABG pO2 (83-108) mmHg ABG HCO3 (21-25) mmol/L ABG Total CO2 (19-24) mmol/L ABG O2 Saturation (94-97) % Sodium (137-145) mmol/L Potassium (3.5-5.1) mmol/L BUN (9-20) mg/dL Creatinine (0.66-1.25) mg/dL Glucose (74-99) mg/dL POC Glucose (mg/dL) 140 H 205 H 184 H (75-99) mg/dL Plasma Lactic Acid Romain (0.7-2.0) mmol/L Calcium (8.4-10.2) mg/dL AST (17-59) U/L ALT (4-49) U/L Total Protein (6.3-8.2) g/dL Albumin (3.5-5.0) g/dL Procalcitonin (0.02-0.09) ng/mL Urine Blood (Negative) Ur Leukocyte Esterase (Negative) Urine WBC (0-5) /hpf Amorphous Sediment (None) /hpf Urine Mucus (None) /hpf 09/09/20 09/09/20 09/09/20 Range/Units 03:25 08:37 17:47 WBC (3.8-10.6) k/uL RBC (4.30-5.90) m/uL Hgb (13.0-17.5) gm/dL Hct (39.0-53.0) % Neutrophils # (1.3-7.7) k/uL ABG pH (7.35-7.45) ABG pCO2 (35-45) mmHg ABG pO2 (83-108) mmHg ABG HCO3 (21-25) mmol/L ABG Total CO2 (19-24) mmol/L ABG O2 Saturation (94-97) % Sodium (137-145) mmol/L Potassium (3.5-5.1) mmol/L BUN (9-20) mg/dL Creatinine (0.66-1.25) mg/dL Glucose (74-99) mg/dL POC Glucose (mg/dL) 191 H 142 H (75-99) mg/dL Plasma Lactic Acid Romain (0.7-2.0) mmol/L Calcium (8.4-10.2) mg/dL AST (17-59) U/L ALT (4-49) U/L Total Protein (6.3-8.2) g/dL Albumin (3.5-5.0) g/dL Procalcitonin 25.30 H (0.02-0.09) ng/mL Urine Blood (Negative) Ur Leukocyte Esterase (Negative) Urine WBC (0-5) /hpf Amorphous Sediment (None) /hpf Urine Mucus (None) /hpf 09/09/20 09/09/20 09/09/20 Range/Units 17:50 19:34 19:34 WBC (3.8-10.6) k/uL RBC (4.30-5.90) m/uL Hgb (13.0-17.5) gm/dL Hct (39.0-53.0) % Neutrophils # (1.3-7.7) k/uL ABG pH (7.35-7.45) ABG pCO2 (35-45) mmHg ABG pO2 (83-108) mmHg ABG HCO3 (21-25) mmol/L ABG Total CO2 (19-24) mmol/L ABG O2 Saturation (94-97) % Sodium 132 L (137-145) mmol/L Potassium 3.4 L (3.5-5.1) mmol/L BUN 25 H (9-20) mg/dL Creatinine 1.38 H (0.66-1.25) mg/dL Glucose 157 H (74-99) mg/dL POC Glucose (mg/dL) (75-99) mg/dL Plasma Lactic Acid Romain 2.9 H* (0.7-2.0) mmol/L Calcium 6.7 L (8.4-10.2) mg/dL AST (17-59) U/L ALT (4-49) U/L Total Protein (6.3-8.2) g/dL Albumin (3.5-5.0) g/dL Procalcitonin (0.02-0.09) ng/mL Urine Blood Trace H (Negative) Ur Leukocyte Esterase Large H (Negative) Urine WBC 14 H (0-5) /hpf Amorphous Sediment Occasional H (None) /hpf Urine Mucus Rare H (None) /hpf 09/09/20 09/09/20 09/10/20 Range/Units 23:00 23:01 01:30 WBC (3.8-10.6) k/uL RBC (4.30-5.90) m/uL Hgb (13.0-17.5) gm/dL Hct (39.0-53.0) % Neutrophils # (1.3-7.7) k/uL ABG pH (7.35-7.45) ABG pCO2 (35-45) mmHg ABG pO2 (83-108) mmHg ABG HCO3 (21-25) mmol/L ABG Total CO2 (19-24) mmol/L ABG O2 Saturation (94-97) % Sodium (137-145) mmol/L Potassium (3.5-5.1) mmol/L BUN (9-20) mg/dL Creatinine (0.66-1.25) mg/dL Glucose (74-99) mg/dL POC Glucose (mg/dL) 156 H (75-99) mg/dL Plasma Lactic Acid Romain 2.8 H* 2.1 H* (0.7-2.0) mmol/L Calcium (8.4-10.2) mg/dL AST (17-59) U/L ALT (4-49) U/L Total Protein (6.3-8.2) g/dL Albumin (3.5-5.0) g/dL Procalcitonin (0.02-0.09) ng/mL Urine Blood (Negative) Ur Leukocyte Esterase (Negative) Urine WBC (0-5) /hpf Amorphous Sediment (None) /hpf Urine Mucus (None) /hpf 09/10/20 09/10/20 09/10/20 Range/Units 05:00 05:00 05:00 WBC 17.6 H (3.8-10.6) k/uL RBC 3.72 L (4.30-5.90) m/uL Hgb 12.0 L (13.0-17.5) gm/dL Hct 35.0 L (39.0-53.0) % Neutrophils # 15.7 H (1.3-7.7) k/uL ABG pH 7.57 H* (7.35-7.45) ABG pCO2 31 L (35-45) mmHg ABG pO2 162 H (83-108) mmHg ABG HCO3 29 H (21-25) mmol/L ABG Total CO2 30 H (19-24) mmol/L ABG O2 Saturation 99.0 H (94-97) % Sodium 132 L (137-145) mmol/L Potassium (3.5-5.1) mmol/L BUN 24 H (9-20) mg/dL Creatinine (0.66-1.25) mg/dL Glucose 148 H (74-99) mg/dL POC Glucose (mg/dL) (75-99) mg/dL Plasma Lactic Acid Romain (0.7-2.0) mmol/L Calcium 6.9 L (8.4-10.2) mg/dL AST 264 H (17-59) U/L ALT 273 H (4-49) U/L Total Protein 4.2 L (6.3-8.2) g/dL Albumin 2.1 L (3.5-5.0) g/dL Procalcitonin (0.02-0.09) ng/mL Urine Blood (Negative) Ur Leukocyte Esterase (Negative) Urine WBC (0-5) /hpf Amorphous Sediment (None) /hpf Urine Mucus (None) /hpf 09/10/20 09/10/20 09/10/20 Range/Units 05:00 05:11 13:29 WBC (3.8-10.6) k/uL RBC (4.30-5.90) m/uL Hgb (13.0-17.5) gm/dL Hct (39.0-53.0) % Neutrophils # (1.3-7.7) k/uL ABG pH (7.35-7.45) ABG pCO2 (35-45) mmHg ABG pO2 (83-108) mmHg ABG HCO3 (21-25) mmol/L ABG Total CO2 (19-24) mmol/L ABG O2 Saturation (94-97) % Sodium (137-145) mmol/L Potassium (3.5-5.1) mmol/L BUN (9-20) mg/dL Creatinine (0.66-1.25) mg/dL Glucose (74-99) mg/dL POC Glucose (mg/dL) 151 H 106 H (75-99) mg/dL Plasma Lactic Acid Romain 2.4 H* (0.7-2.0) mmol/L Calcium (8.4-10.2) mg/dL AST (17-59) U/L ALT (4-49) U/L Total Protein (6.3-8.2) g/dL Albumin (3.5-5.0) g/dL Procalcitonin (0.02-0.09) ng/mL Urine Blood (Negative) Ur Leukocyte Esterase (Negative) Urine WBC (0-5) /hpf Amorphous Sediment (None) /hpf Urine Mucus (None) /hpf Microbiology - Last 24 Hours (Table) 09/08/20 11:27 Blood Culture - Preliminary Blood No Growth after 48 hours 09/08/20 14:41 Blood Culture - Preliminary Blood No Growth after 24 hours 09/08/20 23:32 Gram Stain - Preliminary Sputum Sputum Culture - Preliminary Assessment and Plan Assessment: Assessment #1 acute hypoxic respiratory failure #2 pneumonia/sepsis #3 complete heart block Plan #1 the echo was reviewed and showed normal LV function #2 continue the temporary pacemaker #3 consider permanent pacemaker if the patient continues to be in advanced AV block and the sepsis improved #3 follow-up with the patient
[2020-09-10 17:45] LABS: Glucose,Whole Blood 105 mg/dL (75-99)
[2020-09-10 18:43] LABS: Glucose,Whole Blood 92 mg/dL (75-99)
[2020-09-10] MEDS: CISATRACURIUM 200 MG in SODIUM CHLORIDE 0.9% 180 ML IV SCH (22:11)
--- NOTE | 2020-09-10 22:27 | PN ---
PROGRESS NOTE DATE OF SERVICE: 09/10/2020 REASON FOR FOLLOWUP: Sepsis and pneumonia. INTERVAL HISTORY: The patient is currently afebrile. The patient is hemodynamically stable. FiO2 is currently down to 50%. No significant purulent secretion in the ET or diarrhea has been reported by the nursing staff. PHYSICAL EXAMINATION: Blood pressure 121/57, pulse of 80, temperature 97.3. He is 97% on 50% FiO2. General description is an elderly male lying in bed in no distress. RESPIRATORY SYSTEM: Unlabored breathing with decreased intensity of breath sounds. No wheeze. HEART: S1, S2. Regular rate and rhythm. ABDOMEN: Soft. Mildly distended. No guarding or rigidity. EXTREMITIES: No edema of the feet. LABS: Hemoglobin is 12, white count 17.6, BUN of 24, creatinine 1.12. Sputum culture pending. Blood culture so far negative. DIAGNOSTIC IMPRESSION AND PLAN: Patient with sepsis. Source is likely a component of pneumonia and a question of aspiration. The patient did have multiple ANTIBIOTIC ALLERGIES, currently covered with Azactam, vancomycin and Flagyl; to continue. Clinically not behaving as COVID pneumonia and the patient did have a negative COVID test x2. No need for droplet isolation. MMODL / IJN: [id number] /
[2020-09-11] MEDS: AZTREONAM 2 GM in SODIUM CHLORIDE 0.9% 100 ML IVPB SCH ×4 (01:00→23:05)
[2020-09-11] MEDS: HEPARIN SODIUM,PORCINE 5,000 UNIT/ML 1 ML VIAL SQ SCH ×4 (01:00→23:05)
[2020-09-11] MEDS: VANCOMYCIN 1,250 MG in SODIUM CHLORIDE 0.9% 250 ML IVPB SCH ×2 (01:00→12:42)
[2020-09-11] MEDS: ARTIFICIAL TEARS-HYPROMELLOSE DROPS 15 ML BTL BOTH EYES SCH ×6 (01:00→21:17)
[2020-09-11 01:15] LABS: Glucose,Whole Blood 120 mg/dL (75-99)
[2020-09-11] MEDS: INSULIN ASPART (NovoLOG) 100 UNIT/ML VIAL SQ SCH ×4 (01:56→21:15)
[2020-09-11 04:53] LABS: ABG HCO3 27 mmol/L (21-25); ABG Oxygen Saturation 99.1 % (94-97); ABG PCO2 38 mmHg (35-45); ABG PH 7.46 (7.35-7.45); ABG PO2 217 mmHg (83-108); ABG TCO2 28 mmol/L (19-24)
[2020-09-11 05:01] LABS: Basophils # (A) 0.1 k/uL (0-0.2); Basophils % (A) 1 %; Eosinophils # (A) 0.2 k/uL (0-0.7); Eosinophils % (A) 1 %; HCT 35.6 % (39.0-53.0); HGB 11.9 gm/dL (13.0-17.5); Lymphocytes # (A) 1.2 k/uL (1.0-4.8); Lymphocytes % (A) 9 %; MCH 32.3 pg (25.0-35.0); MCHC 33.5 g/dL (31.0-37.0); MCV 96.4 fL (80.0-100.0); Mean Platelet Volume 8.5; Monocytes # (A) 0.6 k/uL (0-1.0); Monocytes % (A) 4 %; Neutrophils % (A) 84 %; Platelet Count 174 k/uL (150-450); WBC 14.4 k/uL (3.8-10.6)
[2020-09-11 05:03] LABS: Glucose,Whole Blood 113 mg/dL (75-99)
[2020-09-11 05:36] LABS: Allen Test Performed? no
[2020-09-11 05:48] LABS: ALT 190 U/L (4-49); AST 137 U/L (17-59); African American GFR (CKD) >90 (>60 ml/min/1.73 sqM); Albumin 1.6 g/dL (3.5-5.0); Alkaline Phosphatase 123 U/L (38-126); Anion Gap 1 mmol/L; Blood Urea Nitrogen 19 mg/dL (9-20); Carbon Dioxide 24 mmol/L (22-30); Chloride 111 mmol/L (98-107); Glucose 96 mg/dL (74-99); Non-African American GFR(CKD) >90 (>60 ml/min/1.73 sqM); Potassium 3.1 mmol/L (3.5-5.1); Sodium 136 mmol/L (137-145); Total Bilirubin 0.4 mg/dL (0.2-1.3); Total Protein 3.5 g/dL (6.3-8.2)
[2020-09-11] MEDS: LEVOTHYROXINE 112 MCG TAB PO SCH (06:19)
[2020-09-11] MEDS: metroNIDAZOLE-NS PMX 500 MG in SALINE 1 100ML.BAG IVPB SCH ×3 (06:19→22:05)
[2020-09-11] MEDS: POTASSIUM BICARBONATE/CIT AC 20 MEQ TABLET.EFF NG-TUBE SCH ×2 (06:19→06:55)
--- NOTE | 2020-09-11 07:30 | P.PN ---
Subjective Progress Note Date: 09/11/20 On 09/10/2020, the patient is being seen for a follow-up. The patient came in to the hospital yesterday and subsequently admitted to the intensive care unit because of difficulty breathing. At a time of arrival to the ED, the patient was discovered to be congestion heart failure and there was also concern for pneumonia/sepsis. Subsequently, the patient developed a third-degree AV block and required intubation mechanical ventilation. Cardiology was consulted. The patient was taken to the [facility] for placement of a temporary venous pacemaker. The patient was brought in back to the intensive care unit intubated on a mechanical ventilator. The patient was sedated and paralyzed with a combination of propofol an endovascular suspected and the patient was requiring pressors including norepinephrine infusion. The patient was also on a bicarb infusion with D5 and 150 mEq of sodium bicarbonate running at 150 mL an hour. IV access was established. The patient was covered with a combination of Azactam, Flagyl and vancomycin as broad-spectrum antibiotic coverage. Chest x-ray showed the possibility of a lower lobe pneumonia bilaterally. As such, the patient was treated for acute hypoxic respiratory failure for the above-mentioned reasons. The patient as mentioned was in a third-degree AV block and required a temporary transvenous pacemaker insertion. The patient was also in acute kidney injury related to above-mentioned comorbidities in addition to a shock liver. Note that the patient's also had a right-sided cardiac cath revealing normal pulmonary artery pressures in the pulmonary capillary wedge pressure was only 14 mmHg , and echocardiogram that was done showed a normal LV systolic function with an ejection fraction of 55-60%, RV was within normal, LAD was within normal limits, mild mitral regurgitation, moderate tricuspid regurgitation and the right posterior systolic pressure was estimated to be 28 mmHg. Noted the patient's cognitive testing came back negative. The white cell count was at 34 at time of admission and came up to 41. The patient had 24% bandemia. The initial blood gases was consistent with severe metabolic acidosis with a pH of 7.03 and a pCO2 of 44 and pO2 of 87. Subsequent blood gases showed improvement and acid base status. The patient was in acute kidney injury with a creatinine of 2.24 and this subsequently improved.. Lactic acid initially was at 6.5 down to 2.9. Troponin peaked at 0.16. ProBNP level was 14,300 and the patient's pro calcitonin level was 25.3. UA was negative. The patient currently has a left IJ triple-lumen catheter in place. He is currently intubated on a mechanical ventilator. He is an assist-control mode with tidal volume of 450, FiO2 of 60% with a PEEP of 15 and a rate of 26. Probable was running at 50 mcg/kg per minute. Nimbex is running at 1.5 mcg/kg per minute. Norepinephrine infusion is running at 0.06 g per kilograms per minute. She is living vital high protein at the rate of 20 mL an hour. The patient is afebrile this morning. The chest x-ray still showing diffuse but the pulmonary infiltrates perihilar and these infiltrates are quite dense.The white cell count is improved and is currently down to 17. The blood gases from today showed a pH of 7.57 with a pCO2 of 31 and pO2 162 as such the patient has developed a combination of respiratory and metabolic alkalosis the renal function is improved in the creatinine is normalized is down to 1.1. His adequate urine output. Lactic acid level is down to 2.4. Cultures are still all. His cardiac rhythm is currently paced at the rate of 60 with an underlying rhythm of third-degree AV block. On 09/11/2020, the patient remains intubated on a mechanical ventilator. This morning, he is on assist control mode at a rate of 26 with a tidal volume of 400 and FiO2 of 50% with a PEEP of 15. The blood gases from this morning showed a pH of 7.46 with a pCO2 of 38 and pO2 of 217. Nevertheless, the chest x-ray still showing bilateral perihilar pulmonary infiltrates with increased consolidation of the lung bases. We are still considering a bacterial pneumonia. The patient's pro calcitonin level was quite elevated and the patient had severe leukocytosis at time of admission. The COVID19 testing 2 came back negative. The patient was covered with a combination of vancomycin, Flagyl, and Azactam. The cultures are all negative. The patient is afebrile for now. As mentioned, the white cell count is improving. Meanwhile, his cardiac rhythm is still third-degree AV block is currently paced at the rate of 80 with a transvenous pacemaker through his right IJ. The patient is still on pressors and norepinephrine is running at 0.06 mcg/kg per minute. Urine output is in order of 50 mL an hour and the patient is receiving IV fluids in the form of normal saline today to 100 mL an hour. He is sedated with propofol at 50 mcg/kg per minute. I cell count is down to 14.4. Her lactic acid level was down to 1.6, LFTs are slightly elevated with AST of 137, ALT of 190, serum albumin is at 1.6 and ionized calcium is at 4.6. He is afebrile. He is receiving vital high protein for enteral nutrition today to 45 mL an hour. Objective - Vital Signs Vital signs: Vital Signs Temp 97.6 F 09/11/20 04:00 Pulse 80 09/11/20 07:00 Resp 26 H 09/11/20 07:00 BP 81/58 09/10/20 18:00 Pulse Ox 96 09/11/20 07:00 Intake & Output 09/10/20 09/11/20 09/11/20 18:59 06:59 18:59 Intake Total 2065.035 2551.133 Output Total 1120 835 Balance 541.705 2088.133 Intake: IV 1383 1689 0.9 NACL 1100 1300 Aztreonam 2 gm In Sodium 100 100 Chloride 0.9% 100 ml @ 33 .3 mls/hr IVPB Q8HR [facility] Rx#:[id number] Dextrose 5% in Water 1, 150 000 ml @ 150 mls/hr IV . Q7H40M [facility] with Sodium Bicarb (1 Meq/ml) 150 ml Rx#:[id number] Vancomycin 1,250 mg In 250 Sodium Chloride 0.9% 250 ml @ 125 mls/hr IVPB Q12H [facility] Rx#:[id number] pressure bag 33 39 Intake, IV Titration 402.035 277.133 Amount Cisatracurium 200 mg In 41.808 Sodium Chloride 0.9% 180 ml @ 2 MCG/KG/MIN 8.709 mls/hr IV .[id number] [facility] Rx #:[id number] Norepinephrine 8 mg In 105.220 177.133 Sodium Chloride 0.9% 250 ml @ 0.19 MCG/KG/MIN 30. 184 mls/hr IV .Q8H33M [facility] Rx#:[id number] propofoL 1,000 mg In 255.007 100 Empty Bag 1 bag @ Titrate IV .Q0M [facility] Rx#: [id number] Tube Feeding 280 495 Other 90 Output: Urine 1120 835 Other: Voiding Method Indwelling Catheter Indwelling Catheter ABP, PAP, CO, CI - Last Documented Arterial Blood Pressure 109/53 - Exam Gen. appearance the patient is sedated, comfortable, paralyzed, centers the mechanical ventilator. Head exam was generally normal. There was no scleral icterus or corneal arcus. Mucous membranes were moist. Neck was supple and without jugular venous distension, thyromegaly, or carotid bruits. Carotids were easily palpable bilaterally. There was no adenopathy. Orogastric and orotracheal tube are both in place and the patient also has a left IJ triple lumen catheter in the right IJ temporary pacemaker, transvenous. Lungs were clear to auscultation and percussion, and with normal diaphragmatic excursion. No wheezes or rales were noted. Cardiac exam revealed the PMI to be normally situated and sized. The rhythm was regular and no extrasystoles were noted during several minutes of auscultation. The first and second heart sounds were normal and physiologic splitting of the second heart sound was noted. There were no murmurs, rubs, clicks, or gallops. Abdominal exam revealed normal bowel sounds. The abdomen was soft, non-tender, and without masses, organomegaly, or appreciable enlargement of the abdominal aorta. Examination of the extremities revealed easily palpable radial, femoral and pedal pulses. There was no cyanosis, clubbing or edema. Examination of the skin revealed no evidence of significant rashes, suspicious appearing nevi or other concerning lesions. Neurologically, the patient is sedated and paralyzed - Labs CBC & Chem 7: 09/11/20 04:50 09/11/20 04:50 Labs: Abnormal Lab Results - Last 24 Hours (Table) 09/10/20 09/10/20 09/11/20 Range/Units 13:29 17:44 01:02 WBC (3.8-10.6) k/uL RBC (4.30-5.90) m/uL Hgb (13.0-17.5) gm/dL Hct (39.0-53.0) % Neutrophils # (1.3-7.7) k/uL ABG pH (7.35-7.45) ABG pO2 (83-108) mmHg ABG HCO3 (21-25) mmol/L ABG Total CO2 (19-24) mmol/L ABG O2 Saturation (94-97) % Sodium (137-145) mmol/L Potassium (3.5-5.1) mmol/L Chloride (98-107) mmol/L POC Glucose (mg/dL) 106 H 105 H 120 H (75-99) mg/dL Calcium (8.4-10.2) mg/dL AST (17-59) U/L ALT (4-49) U/L Total Protein (6.3-8.2) g/dL Albumin (3.5-5.0) g/dL 09/11/20 09/11/20 09/11/20 Range/Units 04:50 04:50 04:50 WBC 14.4 H (3.8-10.6) k/uL RBC 3.70 L (4.30-5.90) m/uL Hgb 11.9 L (13.0-17.5) gm/dL Hct 35.6 L (39.0-53.0) % Neutrophils # 12.0 H (1.3-7.7) k/uL ABG pH (7.35-7.45) ABG pO2 (83-108) mmHg ABG HCO3 (21-25) mmol/L ABG Total CO2 (19-24) mmol/L ABG O2 Saturation (94-97) % Sodium 136 L (137-145) mmol/L Potassium 3.1 L (3.5-5.1) mmol/L Chloride 111 H (98-107) mmol/L POC Glucose (mg/dL) 113 H (75-99) mg/dL Calcium 6.0 L* (8.4-10.2) mg/dL AST 137 H (17-59) U/L ALT 190 H (4-49) U/L Total Protein 3.5 L (6.3-8.2) g/dL Albumin 1.6 L (3.5-5.0) g/dL 09/11/20 Range/Units 04:52 WBC (3.8-10.6) k/uL RBC (4.30-5.90) m/uL Hgb (13.0-17.5) gm/dL Hct (39.0-53.0) % Neutrophils # (1.3-7.7) k/uL ABG pH 7.46 H (7.35-7.45) ABG pO2 217 H (83-108) mmHg ABG HCO3 27 H (21-25) mmol/L ABG Total CO2 28 H (19-24) mmol/L ABG O2 Saturation 99.1 H (94-97) % Sodium (137-145) mmol/L Potassium (3.5-5.1) mmol/L Chloride (98-107) mmol/L POC Glucose (mg/dL) (75-99) mg/dL Calcium (8.4-10.2) mg/dL AST (17-59) U/L ALT (4-49) U/L Total Protein (6.3-8.2) g/dL Albumin (3.5-5.0) g/dL Microbiology - Last 24 Hours (Table) 09/08/20 14:41 Blood Culture - Preliminary Blood No Growth after 48 hours 09/08/20 11:27 Blood Culture - Preliminary Blood No Growth after 48 hours Assessment and Plan Plan: 1 acute hypoxic respiratory failure with development of bilateral pulmonary infiltrates/pneumonia with possibly component of CHF complicating overall presentation. Currently intubated on a mechanical ventilator. Currently sedated and paralyzed. The chest x-ray still showing diffuse but the pulmonary infiltrates, perihilar and the cultures are all negative. Note that the romero virus/Covid 19 screening 2 was also negative. The patient is afebrile. White cell count is improving. Remains intubated on a mechanical ventilator and the blood gases showing improvement in the patient's oxygenation. Note that the bacterial cultures are still negative. A repeat pro-calcitonin level will be obtained. 2 hypotension, consider septic shock, adequately resuscitated IV fluids and the patient is currently on low-dose norepinephrine infusion at 0.06 mcg/kg per minute and the patient had a ejection fraction of 55% and the patient is currently paced at the rate of 80 beats per minute via a transvenous pacemaker with an underlying third-degree AV block 3 severe lactic acidosis with a lactic acid of 6.9, improving, and the lactic acid level is down to 1.6 4 acute kidney injury secondary to above, improving, and the creatinine is down to 0.73 5 third-degree AV block with severe bradycardia post-insertion of a chance venous pacemaker on 09/08/2020 the patient's current rhythm, the patient is currently paced at the rate of 80 6 troponin leak with elevation of troponin levels, likely secondary to demand ischemia 7 severe lactic acidosis, improving 8 hyponatremia, improved 9 severe leukocytosis with bandemia, most likely infectious in nature especially with elevation of the pro-calcitonin level. The levels of white cell are also improving. 10 hypothyroidism maintained on Synthroid on outpatient basis And Continue ventilator support, drop the FiO2 down to 40%, drop the PEEP down to 12 with the intention of dropping the PEEP further as long as his saturation remains above tidal volume down to 400, and keep the same respiratory rate normal saline at the rate of 100 mL an hour Monitor CVP Paced baseline heart rate up to 80 beats per minute , The patient remains on low dose of norepinephrine infusion Keep the patient on propofol Cultures are all negative. High concern for bacterial infection. We'll continue same antibiotic coverage including a combination of Flagyl, as aztreonam and vancomycin. Repeat pro-calcitonin level bronchoscopy and bronchial alveolar lavage today to establish an microbial diagnoses regarding his bilateral pneumonia. Chest x-ray findings is showing some interval worsening in the consolidation in the lung bases. [facility] for nutritional support Addition holiday and assess his mental status Thyroid function test is to be repeated Continue following up this patient along with aggressive the consultants. We'll continue to follow. There is a critically care evaluation>30 min Time with Patient: Greater than 30
--- NOTE | 2020-09-11 07:35 | P.PN ---
Subjective Progress Note Date: 09/11/20 Principal diagnosis: Complete heart block This is a 74-year-old gentleman with multiple comorbid conditions was admitted to the hospital with pneumonia and sepsis and we involved in his care because of complete heart block requiring temporary pacemaker. The patient was seen today September [id number]. He continues to be hemodynamically and is stable and requiring increasing doses of norepinephrine. He continues to be on antibiotic. Also he continues to be in third degree AV block and required pacing all the time. At this point we will continue the current medical regimen including continuing the temporary pacemaker. Likely he'll need to have a permanent pacemaker once the infection is controlled. Objective - Vital Signs Vital signs: Vital Signs Temp 97.6 F 09/11/20 04:00 Pulse 80 09/11/20 07:00 Resp 26 H 09/11/20 07:00 BP 81/58 09/10/20 18:00 Pulse Ox 96 09/11/20 07:00 Intake & Output 09/10/20 09/11/20 09/11/20 18:59 06:59 18:59 Intake Total 2065.035 2551.133 Output Total 1120 835 Balance 256.309 4235.133 Intake: IV 1383 1689 0.9 NACL 1100 1300 Aztreonam 2 gm In Sodium 100 100 Chloride 0.9% 100 ml @ 33 .3 mls/hr IVPB Q8HR [facility] Rx#:[id number] Dextrose 5% in Water 1, 150 000 ml @ 150 mls/hr IV . Q7H40M [facility] with Sodium Bicarb (1 Meq/ml) 150 ml Rx#:[id number] Vancomycin 1,250 mg In 250 Sodium Chloride 0.9% 250 ml @ 125 mls/hr IVPB Q12H [facility] Rx#:[id number] pressure bag 33 39 Intake, IV Titration 402.035 277.133 Amount Cisatracurium 200 mg In 41.808 Sodium Chloride 0.9% 180 ml @ 2 MCG/KG/MIN 8.709 mls/hr IV .[id number] [facility] Rx #:[id number] Norepinephrine 8 mg In 105.220 177.133 Sodium Chloride 0.9% 250 ml @ 0.19 MCG/KG/MIN 30. 184 mls/hr IV .Q8H33M [facility] Rx#:[id number] propofoL 1,000 mg In 255.007 100 Empty Bag 1 bag @ Titrate IV .Q0M [facility] Rx#: [id number] Tube Feeding 280 495 Other 90 Output: Urine 1120 835 Other: Voiding Method Indwelling Catheter Indwelling Catheter ABP, PAP, CO, CI - Last Documented Arterial Blood Pressure 109/53 - Constitutional General appearance: Present: no acute distress - Respiratory Respiratory: bilateral: diminished - Cardiovascular Rhythm: regular Heart sounds: normal: S1, S2 - Labs CBC & Chem 7: 09/11/20 04:50 09/11/20 04:50 Labs: Abnormal Lab Results - Last 24 Hours (Table) 09/10/20 09/10/20 09/11/20 Range/Units 13: 17:44 01:02 WBC (3.8-10.6) k/uL RBC (4.30-5.90) m/uL Hgb (13.0-17.5) gm/dL Hct (39.0-53.0) % Neutrophils # (1.3-7.7) k/uL ABG pH (7.35-7.45) ABG pO2 (83-108) mmHg ABG HCO3 (21-25) mmol/L ABG Total CO2 (19-24) mmol/L ABG O2 Saturation (94-97) % Sodium (137-145) mmol/L Potassium (3.5-5.1) mmol/L Chloride (98-107) mmol/L POC Glucose (mg/dL) 106 H 105 H 120 H (75-99) mg/dL Calcium (8.4-10.2) mg/dL AST (17-59) U/L ALT (4-49) U/L Total Protein (6.3-8.2) g/dL Albumin (3.5-5.0) g/dL 09/11/20 09/11/20 09/11/20 Range/Units 04:50 04:50 04:50 WBC 14.4 H (3.8-10.6) k/uL RBC 3.70 L (4.30-5.90) m/uL Hgb 11.9 L (13.0-17.5) gm/dL Hct 35.6 L (39.0-53.0) % Neutrophils # 12.0 H (1.3-7.7) k/uL ABG pH (7.35-7.45) ABG pO2 (83-108) mmHg ABG HCO3 (21-25) mmol/L ABG Total CO2 (19-24) mmol/L ABG O2 Saturation (94-97) % Sodium 136 L (137-145) mmol/L Potassium 3.1 L (3.5-5.1) mmol/L Chloride 111 H (98-107) mmol/L POC Glucose (mg/dL) 113 H (75-99) mg/dL Calcium 6.0 L* (8.4-10.2) mg/dL AST 137 H (17-59) U/L ALT 190 H (4-49) U/L Total Protein 3.5 L (6.3-8.2) g/dL Albumin 1.6 L (3.5-5.0) g/dL 09/11/20 Range/Units 04:52 WBC (3.8-10.6) k/uL RBC (4.30-5.90) m/uL Hgb (13.0-17.5) gm/dL Hct (39.0-53.0) % Neutrophils # (1.3-7.7) k/uL ABG pH 7.46 H (7.35-7.45) ABG pO2 217 H (83-108) mmHg ABG HCO3 27 H (21-25) mmol/L ABG Total CO2 28 H (19-24) mmol/L ABG O2 Saturation 99.1 H (94-97) % Sodium (137-145) mmol/L Potassium (3.5-5.1) mmol/L Chloride (98-107) mmol/L POC Glucose (mg/dL) (75-99) mg/dL Calcium (8.4-10.2) mg/dL AST (17-59) U/L ALT (4-49) U/L Total Protein (6.3-8.2) g/dL Albumin (3.5-5.0) g/dL Microbiology - Last 24 Hours (Table) 09/08/20 14:41 Blood Culture - Preliminary Blood No Growth after 48 hours 09/08/20 11:27 Blood Culture - Preliminary Blood No Growth after 48 hours Assessment and Plan Assessment: Assessment #1 acute hypoxic respiratory failure #2 pneumonia/sepsis #3 complete heart block Plan #1 the echo was reviewed and showed normal LV function #2 continue the temporary pacemaker #3 consider permanent pacemaker if the patient continues to be in advanced AV block and the sepsis improved #3 follow-up with the patient
--- NOTE | 2020-09-11 08:15 | XR ---
EXAMINATION TYPE: XR chest 1V portable DATE OF EXAM: 09/11/2020 COMPARISON: Chest x-ray 09/10/2020 HISTORY: Intubated TECHNIQUE: Single frontal view of the chest is obtained. FINDINGS: Findings are similar to prior exam. The hemidiaphragms are secured, there is increased oc ateral airspace disease. Heart size is likely unchanged. Aorta is dense. No evident pneumothorax. Lef t jugular central venous catheter, endotracheal tube, NG tube, transvenous pacer are all stable and o verlying appropriate positions. IMPRESSION: Airspace disease may have progressed in the interval and there may be increasing pleural effusions and associated atelectasis versus edema, pneumonia
[2020-09-11] MEDS: NOREPINEPHRINE 8 MG in SODIUM CHLORIDE 0.9% 250 ML IV SCH ×3 (08:16→19:00)
[2020-09-11] MEDS: CHLORHEXIDINE GLUCONATE 15 ML CUP MUCOUS MEM SCH ×2 (08:17→21:25)
--- NOTE | 2020-09-11 09:18 | P.PCN ---
Date of Procedure: 09/11/20 Preoperative Diagnosis: Bilateral pneumonia complicated by respiratory failure Postoperative Diagnosis: Bilateral pneumonia complicated by respiratory failure Procedure(s) Performed: Bronchoscopy, bronchioloalveolar lavage of the right middle lobe Anesthesia: MAC Surgeon: Claude Dumont [employer] Instructor #1: Lilibeth Huitron Estimated Blood Loss (ml): 0 Pathology: other Condition: critical Disposition: ICU Operative Findings: This procedure was done in the intensive care unit. The patient was already intubated on a mechanical ventilator. The patient was sedated with propofol. The patient percent oxygen and the procedure was done while the patient was adequately sedated and mechanically ventilated and oxygenated. The disposable bronchoscope was utilized to complete this procedure. The bronchoscope was easily passed through the endotracheal tube and was advanced into the lower trachea. The distal trachea and the neftali was within normal limits. Bilateral mainstem bronchi were then inspected and they're within normal limits. Examination of the airways included the right upper lobe bronchus, bronchus intermedius, right middle lobe bronchus and right lower lobe bronchus. Examination of the left side including the left mainstem bronchus, left upper lobe bronchus and left lower lobe bronchus. The various segments were also inspected. Minimal respiratory secretions were encountered that were loose and these were suctioned out. The bronchoscope was wedged into the medial segment of the right middle lobe and a bronchioloalveolar lavage was done. A total of 100 mL of fluid was infused into the right middle lobe and 20 mL was aspirated without any major difficulties. The aspirate was nonbloody and was cloudy. The procedure was terminated. Hepatitic it was suctioning was done. Bronchoscope was removed. The sample was will be sent for microbial cultures and analysis. I'm also going to repeat the romero virus/COVID 19 testing on the samples obtained from the bronchioloalveolar lavage.
--- NOTE | 2020-09-11 10:22 | P.PN ---
Subjective Progress Note Date: 09/11/20 No new complaints. Plan for bronchoscopy today. Pressor requirement decreasing, PEEP requirement decreasing on VC: 500, 40%, 10 PEEP Objective - Vital Signs Vital signs: Vital Signs Temp 97.8 F 09/11/20 08:00 Pulse 80 09/11/20 09:00 Resp 26 H 09/11/20 09:00 BP 81/58 09/10/20 18:00 Pulse Ox 97 09/11/20 09:00 Intake & Output 09/10/20 09/11/20 09/11/20 18:59 06:59 18:59 Intake Total 2065.035 2551.133 614.163 Output Total 1120 835 225 Balance 696.648 3872.133 389.163 Intake: IV 1383 1689 409 0.9 NACL 1100 1300 300 Aztreonam 2 gm In Sodium 100 100 100 Chloride 0.9% 100 ml @ 33 .3 mls/hr IVPB Q8HR [facility] Rx#:[id number] Dextrose 5% in Water 1, 150 000 ml @ 150 mls/hr IV . Q7H40M [facility] with Sodium Bicarb (1 Meq/ml) 150 ml Rx#:[id number] Vancomycin 1,250 mg In 250 Sodium Chloride 0.9% 250 ml @ 125 mls/hr IVPB Q12H [facility] Rx#:[id number] pressure bag 33 39 9 Intake, IV Titration 402.035 277.133 137.163 Amount Cisatracurium 200 mg In 41.808 Sodium Chloride 0.9% 180 ml @ 2 MCG/KG/MIN 8.709 mls/hr IV .[id number] [facility] Rx #:[id number] Norepinephrine 8 mg In 105.220 177.133 33.468 Sodium Chloride 0.9% 250 ml @ 0.19 MCG/KG/MIN 30. 184 mls/hr IV .Q8H33M [facility] Rx#:[id number] propofoL 1,000 mg In 255.007 100 103.695 Empty Bag 1 bag @ Titrate IV .Q0M [facility] Rx#: [id number] Tube Feeding 280 495 68 Other 90 Output: Urine 1120 835 225 Other: Voiding Method Indwelling Catheter Indwelling Catheter Indwelling Catheter ABP, PAP, CO, CI - Last Documented Arterial Blood Pressure 102/47 - Exam Gen: Intubated, sedated HEENT: normocephalic, atraumatic, good hearing acuity, moist mucous membranes Resp: Venttidal volume 400, FiO2 40%, PEEP 10 CVS: good distal perfusion x 4, no appreciable murmurs GI: soft, NTTP, ND : no SPT, no CVAT, torre catheter is present MSK: no pitting edema, no clubbing Neuro: non-focal, moving all extremities Psych: cooperative, euthymic mood - Labs CBC & Chem 7: 09/11/20 04:50 09/11/20 04:50 Labs: Abnormal Lab Results - Last 24 Hours (Table) 09/10/20 09/10/20 09/11/20 Range/Units 13: 17:44 01:02 WBC (3.8-10.6) k/uL RBC (4.30-5.90) m/uL Hgb (13.0-17.5) gm/dL Hct (39.0-53.0) % Neutrophils # (1.3-7.7) k/uL ABG pH (7.35-7.45) ABG pO2 (83-108) mmHg ABG HCO3 (21-25) mmol/L ABG Total CO2 (19-24) mmol/L ABG O2 Saturation (94-97) % Sodium (137-145) mmol/L Potassium (3.5-5.1) mmol/L Chloride (98-107) mmol/L POC Glucose (mg/dL) 106 H 105 H 120 H (75-99) mg/dL Calcium (8.4-10.2) mg/dL AST (17-59) U/L ALT (4-49) U/L Total Protein (6.3-8.2) g/dL Albumin (3.5-5.0) g/dL 09/11/20 09/11/20 09/11/20 Range/Units 04:50 04:50 04:50 WBC 14.4 H (3.8-10.6) k/uL RBC 3.70 L (4.30-5.90) m/uL Hgb 11.9 L (13.0-17.5) gm/dL Hct 35.6 L (39.0-53.0) % Neutrophils # 12.0 H (1.3-7.7) k/uL ABG pH (7.35-7.45) ABG pO2 (83-108) mmHg ABG HCO3 (21-25) mmol/L ABG Total CO2 (19-24) mmol/L ABG O2 Saturation (94-97) % Sodium 136 L (137-145) mmol/L Potassium 3.1 L (3.5-5.1) mmol/L Chloride 111 H (98-107) mmol/L POC Glucose (mg/dL) 113 H (75-99) mg/dL Calcium 6.0 L* (8.4-10.2) mg/dL AST 137 H (17-59) U/L ALT 190 H (4-49) U/L Total Protein 3.5 L (6.3-8.2) g/dL Albumin 1.6 L (3.5-5.0) g/dL 09/11/20 Range/Units 04:52 WBC (3.8-10.6) k/uL RBC (4.30-5.90) m/uL Hgb (13.0-17.5) gm/dL Hct (39.0-53.0) % Neutrophils # (1.3-7.7) k/uL ABG pH 7.46 H (7.35-7.45) ABG pO2 217 H (83-108) mmHg ABG HCO3 27 H (21-25) mmol/L ABG Total CO2 28 H (19-24) mmol/L ABG O2 Saturation 99.1 H (94-97) % Sodium (137-145) mmol/L Potassium (3.5-5.1) mmol/L Chloride (98-107) mmol/L POC Glucose (mg/dL) (75-99) mg/dL Calcium (8.4-10.2) mg/dL AST (17-59) U/L ALT (4-49) U/L Total Protein (6.3-8.2) g/dL Albumin (3.5-5.0) g/dL Microbiology - Last 24 Hours (Table) 09/08/20 23:32 Gram Stain - Final Sputum Sputum Culture - Final 09/08/20 14:41 Blood Culture - Preliminary Blood No Growth after 48 hours 09/08/20 11:27 Blood Culture - Preliminary Blood No Growth after 48 hours Assessment and Plan Assessment: Unresponsiveness, suspected secondary to bradycardia Acute hypoxic respiratory failure, on mechanical ventilation -Status post transvenous pacer for third-degree AV block with bradycardia on 09/08/20 -Status post bronch with BAL on 09/11, pending results -Infectious disease following: Patient on aztreonam, Levaquin, Flagyl, and vancomycin -Follow-up cultures -Echocardiogram unremarkable with LVEF 55-60% and normal LV wall thickness -COVID 19 PCR negative -Vent management as per the [employer] Lactic acidosis -Improved -Patient on normal saline infusion -Bicarbonate infusion held due to alkalosis on the ABG -Nephrology following Metabolic alkalosis -Likely secondary to bicarbonate infusion -Held for now NAN -Significantly improved -Continue with fluid resuscitation -Continue to monitor BMP with nephrology following Abnormal LFTs -Likely due to poor perfusion of the liver -Continue to monitor for now Hyponatremia -Gradually improving with IV fluids -Continue to monitor Hyperglycemia -A1c 5.4 -Hyperglycemia likely secondary to acute stress -Continue to monitor for now Ventral hernia -Outpatient follow-up DVT prophylaxis -Heparin Anticipated discharge place: Home
[2020-09-11 11:39] LABS: Glucose,Whole Blood 86 mg/dL (75-99)
[2020-09-11] MEDS: SODIUM CHLORIDE 0.9% 1,000 ML IV SCH ×2 (12:39→22:05)
--- NOTE | 2020-09-11 14:05 | PN ---
PROGRESS NOTE Patient is seen for followup for acute kidney injury. His renal function has improved with serum creatinine down to 0.7 mg/dL. Levophed is further decreased. Sodium is up to 136 now. The patient remains on the vent. He has had good urine output with hourly output at about 75 to 125 mL an hour. PHYSICAL EXAMINATION: On examination today, blood pressure was 124/61, heart rate 80 per minute. Patient is afebrile. EXAMINATION OF THE HEART: Shows S1, S2. EXAMINATION OF THE LUNGS: Bilateral breath sounds are heard. The patient is sedated and on the vent. Abdomen is soft. Examination of lower extremities shows trace edema bilaterally. SWEEP MOLDER exam cannot be performed. LABS: Labs show sodium 136, potassium 3.1, CO2 was 24, chloride 111, and BUN 19 serum creatinine 0.73, hemoglobin 11.9 g/dL. ASSESSMENT: 1. Acute kidney injury, acute tubular necrosis, currently improved. 2. Hypokalemia, status post replacement. Currently not on any diuretics. 3. Metabolic acidosis, now resolved. 4. Metabolic alkalosis, improved post discontinuation of bicarb drip. 5. Acute hypoxic respiratory failure secondary to pneumonia. 6. Hypovolemic hyponatremia, now resolved. PLAN: Replace potassium. We will sign off. Monitor electrolytes periodically. MMODL / IJN: [id number] /
[2020-09-11] MEDS: CISATRACURIUM 200 MG in SODIUM CHLORIDE 0.9% 180 ML IV SCH (21:16)
--- NOTE | 2020-09-11 21:23 | PN ---
PROGRESS NOTE DATE OF SERVICE: 09/11/2020 REASON FOR FOLLOWUP: Aspiration pneumonia. INTERVAL HISTORY: The patient is currently afebrile. The patient is hemodynamically stable. The patient is slightly responding to his name. No significant purulent secretions through the ET or any diarrhea has been reported. PHYSICAL EXAMINATION: Blood pressure is 108/55, pulse of 80, temperature 97.8. He is 97% on 40% FiO2. General description is an elderly male intubated on the vent. RESPIRATORY SYSTEM: Unlabored breathing with decreased breath sounds at the base. No wheeze. HEART: S1, S2. Regular rate and rhythm. ABDOMEN: Soft. No tenderness. LABS: White count 14.4, creatinine 0.73. Bronchoscopy culture pending. Sputum so far negative. Blood culture negative. DIAGNOSTIC IMPRESSION AND PLAN: Patient with acute respiratory failure which is multifactorial in this patient with concern for underlying pneumonia, possible aspiration. Patient is currently broadly covered with vancomycin, Azactam and Flagyl because of ANTIBIOTIC ALLERGY. To continue while waiting for the bronchoscopy culture to finalize and continue supportive care. MMODL / IJN: [id number] /
[2020-09-11 22:59] LABS: Glucose,Whole Blood 108 mg/dL (75-99)
[2020-09-11] MEDS ORDERED: VANCOMYCIN TROUGH DUE 1 EACH MISC MISCELLANE ONE (23:00)
[2020-09-12] MEDS: INSULIN ASPART (NovoLOG) 100 UNIT/ML VIAL SQ SCH ×4 (00:19→17:18)
[2020-09-12] MEDS: ARTIFICIAL TEARS-HYPROMELLOSE DROPS 15 ML BTL BOTH EYES SCH ×7 (00:19→23:50)
[2020-09-12] MEDS: NOREPINEPHRINE 8 MG in SODIUM CHLORIDE 0.9% 250 ML IV SCH ×3 (00:20→18:13)
[2020-09-12] MEDS: VANCOMYCIN 1,250 MG in SODIUM CHLORIDE 0.9% 250 ML IVPB SCH ×2 (01:24→11:46)
[2020-09-12 03:58] LABS: HGB 11.7 gm/dL (13.0-17.5); MCH 31.2 pg (25.0-35.0); MCHC 31.6 g/dL (31.0-37.0); MCV 98.7 fL (80.0-100.0); Mean Platelet Volume 8.2; Platelet Count 209 k/uL (150-450); RBC 3.75 m/uL (4.30-5.90); RDW 14.7 % (11.5-15.5)
[2020-09-12 04:17] LABS: ALT 166 U/L (4-49); AST 111 U/L (17-59); African American GFR (CKD) >90 (>60 ml/min/1.73 sqM); Alkaline Phosphatase 210 U/L (38-126); Anion Gap 1 mmol/L; Blood Urea Nitrogen 23 mg/dL (9-20); Calcium 7.8 mg/dL (8.4-10.2); Carbon Dioxide 24 mmol/L (22-30); Chloride 109 mmol/L (98-107); Glucose 116 mg/dL (74-99); Non-African American GFR(CKD) 89 (>60 ml/min/1.73 sqM); Potassium 4.1 mmol/L (3.5-5.1); Sodium 134 mmol/L (137-145); Total Bilirubin 0.5 mg/dL (0.2-1.3); Total Protein 4.2 g/dL (6.3-8.2)
[2020-09-12 04:28] LABS: Eosinophils # (M) 0.26 k/uL (0-0.7); Lymphocytes # (M) 1.28 k/uL (1.0-4.8); Monocytes # (M) 1.02 k/uL (0-1.0); Myelocytes # (M) 1.02 k/uL (0); Myelocytes % 8 %; Neutrophils # (M) 9.22 k/uL (1.3-7.7); Neutrophils % (M) 72 %; Nucleated Red Blood Cells 1 /100 WBC (0-0); Total Cells Counted 200; WBC 12.8 k/uL (3.8-10.6)
[2020-09-12 04:34] LABS: T4, Free (Free Thyroxine) 1.11 ng/dL (0.78-2.19)
[2020-09-12 05:12] LABS: ABG Base Excess 0.3 mmol/L; ABG HCO3 24 mmol/L (21-25); ABG Oxygen Saturation 97.9 % (94-97); ABG PCO2 32 mmHg (35-45); ABG PH 7.49 (7.35-7.45); ABG PO2 111 mmHg (83-108); ABG TCO2 25 mmol/L (19-24); Allen Test Performed? Yes
[2020-09-12] MEDS: metroNIDAZOLE-NS PMX 500 MG in SALINE 1 100ML.BAG IVPB SCH ×3 (06:03→23:45)
[2020-09-12 07:23] LABS: ABG PH 7.57 (7.35-7.45)
--- NOTE | 2020-09-12 07:34 | XR ---
EXAMINATION TYPE: XR chest 1V portable DATE OF EXAM: 09/12/2020 COMPARISON: Chest x-ray 09/11/2020 HISTORY: Intubated TECHNIQUE: Single frontal view of the chest is obtained. FINDINGS: Findings are similar to prior exam. Endotracheal tube, NG tube, left jugular central venou s catheter, right internal jugular central venous pacemaker lead are all again noted, distal tip of t he NG tube is overlying the stomach, left upper quadrant and may have withdrawn slightly in interval. Bibasilar increased density is present. No evident pneumothorax. Hemidiaphragms are obscured. Heart size is stable. Aorta is dense. IMPRESSION: Correlate for pneumonia, edema, ARDS, possible associated effusions. NG tube may have wi thdrawn slightly in the interval.
[2020-09-12] MEDS: AZTREONAM 2 GM in SODIUM CHLORIDE 0.9% 100 ML IVPB SCH ×3 (08:51→23:57)
[2020-09-12] MEDS: CHLORHEXIDINE GLUCONATE 15 ML CUP MUCOUS MEM SCH ×2 (08:51→21:10)
[2020-09-12] MEDS: LEVOTHYROXINE 112 MCG TAB PO SCH (08:51)
[2020-09-12] MEDS: HEPARIN SODIUM,PORCINE 5,000 UNIT/ML 1 ML VIAL SQ SCH ×3 (08:51→23:57)
--- NOTE | 2020-09-12 11:24 | PN ---
PROGRESS NOTE PULMONARY/CRITICAL CARE PROGRESS NOTE: DATE OF SERVICE: September 12, 2020 Critical care time greater than 30 minutes. This is a patient who I saw in consultation on September 09. The patient was admitted to the hospital on the . The admission diagnosis including pneumonia, sepsis, and third-degree heart block. The patient was apparently found by EMS at home having difficulty breathing. When he got to the emergency room, apparently he was a bit better, but then developed some worsening fluid overload and heart failure. The patient also developed third-degree heart block. He required intubation and mechanical ventilation and he went to the catheterization laboratory where Dr. Ryan Edmonds put in a temporary venous pacemaker in him. The patient was brought back to the ICU. He was on the ventilator. We were having difficulty oxygenating the patient. The patient was PEEP up to 15. We placed art line and central line. Currently, the patient is on the volume assist-control modality rate of 26, tidal volume 400, FiO2 of 40%, PEEP is 10, which is going to be dialed back down to 5. The gases on a PEEP of the 10 show a pO2 of 111, pCO2 of 32, and a pH of 7.5. The patient is on saline at 100 mL an hour, norepinephrine at 4 mcg/minute, propofol at 50 mcg/kg per minute and Vital high-protein at 45 mL an hour. The patient was intubated as I mentioned on the . Today, we are going to try daily interruption of sedation and spontaneous breathing trial with CPAP of 5 and pressure support of 5. The PEEP was dropped from 10 to 5. Currently, the patient is doing a bit better. PHYSICAL EXAMINATION: VITAL SIGNS: Current vital signs are reviewed. Temperature 98.1, heart rate 80, respiratory rate 26, blood pressure 115/52, mean is 80, saturations are 94%. GENERAL: Appears in no acute distress. Currently sedated and on the ventilator. HEENT: Examination is grossly unremarkable. There is an orally placed endotracheal tube and NG tube. NECK: Supple. Full range of motion. No adenopathy. Neck veins are flat. CARDIOVASCULAR: Examination reveals regular rhythm and rate. S1, S2 normal. No S3, S4, or murmur. Heart rate 80. Heart sounds are distant. LUNGS: Reveal diffuse coarse rhonchi. No wheezes or crackles. Breath sounds equal. There are some crackles as well. ABDOMEN: Soft. Bowel sounds are heard. EXTREMITIES: Are intact. No edema. SKIN: Without rash. NEUROLOGIC: Examination cannot be adequately assessed because of his current level of sedation. LABS: Labs are reviewed. White count 12.8, hemoglobin 11.7, hematocrit 37.0, platelet count 209,000. Blood gases show pO2 of 111, pCO2 of 32, and a pH of 7.49. Sodium 134, potassium 4.1 chloride 109, CO2 of 24. Anion gap is 1. BUN and creatinine were 23 and 0.76. AST 111, ALT 166, alkaline phosphatase 210, albumin 4.2. Procalcitonin level was 6.49. Microbiology including blood and sputum sampling was negative. The patient also underwent bronchoscopy yesterday and so far that is all negative or pending. A chest x-ray from the shows diffuse patchy bilateral infiltrates, mostly mid lung and lower lung. There may be small effusions. The cardiac silhouette is not enlarged. MEDICATIONS: Medications are reviewed. The patient is on Artificial Tears, aztreonam, Peridex, subcu heparin, insulin, levothyroxine, magnesium replacement, Flagyl, norepinephrine, potassium replacement, vancomycin, and propofol. ASSESSMENT: 1. Acute hypoxemic respiratory failure, likely secondary to pneumonia complicated by fluid overload, and third-degree heart block, with intubation on September 08, 2020. 2. Third-degree heart block, status post temporary transvenous pacemaker. 3. Severe metabolic acidosis, improved. 4. Lactic acidemia, improved. 5. Rule out ischemic cardiac disease. 6. Hyponatremia, improved. 7. Acute kidney injury, likely secondary to ATN. 8. Shock liver. 9. Hyperlipidemia. 10.Hypothyroidism. PLAN: The patient really has improved significantly since Thursday. On Thursday, he was on 100% and 15 of PEEP. Lines were placed. He was also sedated heavily and paralyzed. He is currently on norepinephrine at 4 mcg/minute. He is getting propofol at 50 mcg/kg per minute. We will try a daily interruption of sedation and a spontaneous breathing trial. The PEEP will be dropped from 10 to 5 based on the pO2 of 111. He is getting nourished with Vital high-protein at goal of 45 mL an hour. The patient is on appropriate medications and antibiotics including aztreonam, Flagyl, and vancomycin. Culture data is thus far negative. We will continue to follow. Prognosis is guarded. Critical care time greater than 30 minutes. MMALEXL / IJN: [id number] /
[2020-09-12] MEDS ORDERED: FUROSEMIDE 10 MG/ML 2 ML VIAL IV ONE (11:42)
--- NOTE | 2020-09-12 11:42 | P.PN ---
Subjective Progress Note Date: 09/12/20 Principal diagnosis: Respiratory failure Patient was seen today WHILE he was on minimal sedation. He is doing well currently. Following simple commands. No respiratory distress noted. Objective - Vital Signs Vital signs: Vital Signs Temp 98.1 F 09/12/20 08:30 Pulse 80 09/12/20 10:00 Resp 26 H 09/12/20 10:00 BP 81/58 09/10/20 18:00 Pulse Ox 94 L 09/12/20 10:00 Intake & Output 09/11/20 09/12/20 09/12/20 18:59 06:59 18:59 Intake Total 2501.327 2602.913 671.432 Output Total 1035 950 275 Balance 7207.886 9108.913 396.432 Weight 82.1 kg 94.6 kg Intake: IV 1686 1683 409 0.9 NACL 1200 1100 300 Aztreonam 2 gm In Sodium 200 100 100 Chloride 0.9% 100 ml @ 33 .3 mls/hr IVPB Q8HR [facility] Rx#:[id number] Vancomycin 1,250 mg In 250 250 Sodium Chloride 0.9% 250 ml @ 125 mls/hr IVPB Q12H [facility] Rx#:[id number] metroNIDAZOLE-NS PMX 500 200 mg In Saline 1 100ml.bag @ 100 mls/hr IVPB Q8H [facility] Rx#:[id number] pressure bag 36 33 9 Intake, IV Titration 386.327 334.913 127.432 Amount Norepinephrine 8 mg In 57.511 58.646 27.432 Sodium Chloride 0.9% 250 ml @ 0.19 MCG/KG/MIN 30. 184 mls/hr IV .Q8H33M [facility] Rx#:[id number] metroNIDAZOLE-NS PMX 500 100 mg In Saline 1 100ml.bag @ 100 mls/hr IVPB Q8H [facility] Rx#:[id number] propofoL 1,000 mg In 228.816 276.267 100 Empty Bag 1 bag @ Titrate IV .Q0M [facility] Rx#: [id number] Tube Feeding 429 495 135 Other 90 Output: Urine 1035 950 275 Other: Voiding Method Indwelling Catheter Indwelling Catheter Indwelling Catheter ABP, PAP, CO, CI - Last Documented Arterial Blood Pressure 115/52 - Exam Gen: Intubated, sedated HEENT: normocephalic, atraumatic, good hearing acuity, moist mucous membranes Resp: Venttidal volume 400, FiO2 40%, PEEP 10 CVS: good distal perfusion x 4, no appreciable murmurs GI: soft, NTTP, ND : no SPT, no CVAT, torre catheter is present MSK: 2+ pitting edema, no clubbing Neuro: non-focal, moving all extremities Psych: cooperative, euthymic mood - Labs CBC & Chem 7: 09/12/20 03:50 09/12/20 03:50 Labs: Abnormal Lab Results - Last 24 Hours (Table) 09/10/20 09/11/20 09/11/20 Range/Units 05:00 12:46 22:57 WBC (3.8-10.6) k/uL RBC (4.30-5.90) m/uL Hgb (13.0-17.5) gm/dL Hct (39.0-53.0) % Neutrophils # (Manual) (1.3-7.7) k/uL Monocytes # (Manual) (0-1.0) k/uL Myelocytes # (Manual) (0) k/uL Nucleated RBCs (0-0) /100 WBC ABG pH 7.57 H* (7.35-7.45) ABG pCO2 (35-45) mmHg ABG pO2 (83-108) mmHg ABG Total CO2 (19-24) mmol/L ABG O2 Saturation (94-97) % Sodium (137-145) mmol/L Chloride (98-107) mmol/L BUN (9-20) mg/dL Glucose (74-99) mg/dL POC Glucose (mg/dL) 108 H (75-99) mg/dL Calcium (8.4-10.2) mg/dL AST (17-59) U/L ALT (4-49) U/L Alkaline Phosphatase (38-126) U/L Total Protein (6.3-8.2) g/dL Albumin (3.5-5.0) g/dL Procalcitonin 6.49 H (0.02-0.09) ng/mL Free T3 pg/mL (2.8-5.3) pg/ml 09/12/20 09/12/20 09/12/20 Range/Units 03:50 03:50 05:30 WBC 12.8 H (3.8-10.6) k/uL RBC 3.75 L (4.30-5.90) m/uL Hgb 11.7 L (13.0-17.5) gm/dL Hct 37.0 L (39.0-53.0) % Neutrophils # (Manual) 9.22 H (1.3-7.7) k/uL Monocytes # (Manual) 1.02 H (0-1.0) k/uL Myelocytes # (Manual) 1.02 H (0) k/uL Nucleated RBCs 1 H (0-0) /100 WBC ABG pH 7.49 H (7.35-7.45) ABG pCO2 32 L (35-45) mmHg ABG pO2 111 H (83-108) mmHg ABG Total CO2 25 H (19-24) mmol/L ABG O2 Saturation 97.9 H (94-97) % Sodium 134 L (137-145) mmol/L Chloride 109 H (98-107) mmol/L BUN 23 H (9-20) mg/dL Glucose 116 H (74-99) mg/dL POC Glucose (mg/dL) (75-99) mg/dL Calcium 7.8 L (8.4-10.2) mg/dL AST 111 H (17-59) U/L ALT 166 H (4-49) U/L Alkaline Phosphatase 210 H (38-126) U/L Total Protein 4.2 L (6.3-8.2) g/dL Albumin 2.0 L (3.5-5.0) g/dL Procalcitonin (0.02-0.09) ng/mL Free T3 pg/mL 2.4 L (2.8-5.3) pg/ml Microbiology - Last 24 Hours (Table) 09/11/20 09:16 Acid Fast Bacilli Smear - Final Bronchoalviolar Lavage - Right Acid Fast Bacilli Culture - Preliminary 09/08/20 14:41 Blood Culture - Preliminary Blood No Growth after 72 hours 09/11/20 09:16 Gram Stain - Preliminary Bronchoalviolar Lavage - Right Bronchial Washings Culture - Preliminary 09/11/20 09:16 Fungal Culture - Preliminary Bronchoalviolar Lavage - Right 09/08/20 11:27 Blood Culture - Preliminary Blood No Growth after 72 hours 09/08/20 23:32 Gram Stain - Final Sputum Sputum Culture - Final Assessment and Plan Plan: Unresponsiveness, suspected secondary to bradycardia/complete heart block Acute hypoxic respiratory failure, on mechanical ventilation -Status post transvenous pacer for third-degree AV block with bradycardia on 09/08/20 followed by cardiology. -Status post bronch with BAL on 09/11, pending results -Infectious disease following: Patient on aztreonam, Flagyl, and vancomycin -Follow-up cultures -Echocardiogram unremarkable with LVEF 55-60% and normal LV wall thickness -COVID 19 PCR negative -Vent management as per the Medication Tech Fluid overload Hold IV fluids Lasix 20 mg IV 1 NAN -Resolved Abnormal LFTs -Likely due to poor perfusion of the liver due to hypotension -Continue to monitor for now Hyponatremia -Improved Hyperglycemia -A1c 5.4 -Hyperglycemia likely secondary to acute stress -Continue to monitor for now Ventral hernia -Outpatient follow-up DVT prophylaxis -Heparin Discussed with RN in ICU staff.
[2020-09-12 11:54] LABS: Glucose,Whole Blood 98 mg/dL (75-99)
[2020-09-12] MEDS: SODIUM CHLORIDE 0.9% 1,000 ML IV SCH (14:46)
--- NOTE | 2020-09-12 15:40 | P.PN ---
Subjective Progress Note Date: 09/12/20 Principal diagnosis: Complete heart block This is a 74-year-old gentleman with multiple comorbid conditions was admitted to the hospital with pneumonia and sepsis and we involved in his care because of complete heart block requiring temporary pacemaker. The patient was seen today September 122019. He is on a small dose of norepinephrine and he is coming down with that. He possibly can be extubated tomorrow. Overall he is doing better. He continues to be in third degree AV block and require temporary pacemaker. At this point we'll continue the current medical regimen and continue following up with the patient Objective - Vital Signs Vital signs: Vital Signs Temp 97.5 F L 09/12/20 12:00 Pulse 80 09/12/20 14:00 Resp 26 H 09/12/20 14:00 BP 81/58 09/10/20 18:00 Pulse Ox 94 L 09/12/20 14:00 Intake & Output 09/11/20 09/12/20 09/12/20 18:59 06:59 18:59 Intake Total 2501.327 2602.913 1688.923 Output Total 4780 027 6657 Balance 9717.986 5388.913 -661.077 Weight 82.1 kg 94.6 kg 94.6 kg Intake: IV 1686 1683 1067 0.9 NACL 1200 1100 690 Aztreonam 2 gm In Sodium 200 100 100 Chloride 0.9% 100 ml @ 33 .3 mls/hr IVPB Q8HR [facility] Rx#:[id number] Vancomycin 1,250 mg In 250 250 250 Sodium Chloride 0.9% 250 ml @ 125 mls/hr IVPB Q12H [facility] Rx#:[id number] metroNIDAZOLE-NS PMX 500 200 mg In Saline 1 100ml.bag @ 100 mls/hr IVPB Q8H [facility] Rx#:[id number] pressure bag 36 33 27 Intake, IV Titration 386.327 334.913 216.923 Amount Norepinephrine 8 mg In 57.511 58.646 27.432 Sodium Chloride 0.9% 250 ml @ 0.19 MCG/KG/MIN 30. 184 mls/hr IV .Q8H33M [facility] Rx#:[id number] metroNIDAZOLE-NS PMX 500 100 mg In Saline 1 100ml.bag @ 100 mls/hr IVPB Q8H [facility] Rx#:[id number] propofoL 1,000 mg In 228.816 276.267 189.491 Empty Bag 1 bag @ Titrate IV .Q0M [facility] Rx#: [id number] Tube Feeding 429 495 405 Other 90 Output: Urine 6527 976 5083 Other: Voiding Method Indwelling Catheter Indwelling Catheter Indwelling Catheter ABP, PAP, CO, CI - Last Documented Arterial Blood Pressure 90/55 - Labs CBC & Chem 7: 09/12/20 03:50 09/12/20 03:50 Labs: Abnormal Lab Results - Last 24 Hours (Table) 09/10/20 09/11/20 09/11/20 Range/Units 05:00 12:46 22:57 WBC (3.8-10.6) k/uL RBC (4.30-5.90) m/uL Hgb (13.0-17.5) gm/dL Hct (39.0-53.0) % Neutrophils # (Manual) (1.3-7.7) k/uL Monocytes # (Manual) (0-1.0) k/uL Myelocytes # (Manual) (0) k/uL Nucleated RBCs (0-0) /100 WBC ABG pH 7.57 H* (7.35-7.45) ABG pCO2 (35-45) mmHg ABG pO2 (83-108) mmHg ABG Total CO2 (19-24) mmol/L ABG O2 Saturation (94-97) % Sodium (137-145) mmol/L Chloride (98-107) mmol/L BUN (9-20) mg/dL Glucose (74-99) mg/dL POC Glucose (mg/dL) 108 H (75-99) mg/dL Calcium (8.4-10.2) mg/dL AST (17-59) U/L ALT (4-49) U/L Alkaline Phosphatase (38-126) U/L Total Protein (6.3-8.2) g/dL Albumin (3.5-5.0) g/dL Procalcitonin 6.49 H (0.02-0.09) ng/mL Free T3 pg/mL (2.8-5.3) pg/ml 09/12/20 09/12/20 09/12/20 Range/Units 03:50 03:50 05:30 WBC 12.8 H (3.8-10.6) k/uL RBC 3.75 L (4.30-5.90) m/uL Hgb 11.7 L (13.0-17.5) gm/dL Hct 37.0 L (39.0-53.0) % Neutrophils # (Manual) 9.22 H (1.3-7.7) k/uL Monocytes # (Manual) 1.02 H (0-1.0) k/uL Myelocytes # (Manual) 1.02 H (0) k/uL Nucleated RBCs 1 H (0-0) /100 WBC ABG pH 7.49 H (7.35-7.45) ABG pCO2 32 L (35-45) mmHg ABG pO2 111 H (83-108) mmHg ABG Total CO2 25 H (19-24) mmol/L ABG O2 Saturation 97.9 H (94-97) % Sodium 134 L (137-145) mmol/L Chloride 109 H (98-107) mmol/L BUN 23 H (9-20) mg/dL Glucose 116 H (74-99) mg/dL POC Glucose (mg/dL) (75-99) mg/dL Calcium 7.8 L (8.4-10.2) mg/dL AST 111 H (17-59) U/L ALT 166 H (4-49) U/L Alkaline Phosphatase 210 H (38-126) U/L Total Protein 4.2 L (6.3-8.2) g/dL Albumin 2.0 L (3.5-5.0) g/dL Procalcitonin (0.02-0.09) ng/mL Free T3 pg/mL 2.4 L (2.8-5.3) pg/ml Microbiology - Last 24 Hours (Table) 09/08/20 11:27 Blood Culture - Preliminary Blood No Growth after 96 hours 09/11/20 09:16 Gram Stain - Preliminary Bronchoalviolar Lavage - Right Bronchial Washings Culture - Preliminary 09/11/20 09:16 Acid Fast Bacilli Smear - Final Bronchoalviolar Lavage - Right Acid Fast Bacilli Culture - Preliminary 09/08/20 14:41 Blood Culture - Preliminary Blood No Growth after 72 hours 09/11/20 09:16 Fungal Culture - Preliminary Bronchoalviolar Lavage - Right
[2020-09-12 17:16] LABS: Glucose,Whole Blood 119 mg/dL (75-99)
--- NOTE | 2020-09-12 23:17 | PN ---
PROGRESS NOTE DATE OF SERVICE: 09/12/2020 REASON FOR FOLLOWUP: Sepsis, pneumonia. INTERVAL HISTORY: The patient is currently afebrile. The patient is getting more awake and not responding. The patient is hemodynamically stable. No significant purulent secretions thru the ET or any other changes reported by nursing staff. PHYSICAL EXAMINATION: Blood pressure 118/64 with a pulse of 80, temperature of 98.2. He is 95% on 40% FiO2. General description is an elderly male lying in bed in no distress. Respiratory system: Unlabored breathing. Clear to auscultation anteriorly. Heart S1, S2. Regular rate and rhythm. Abdomen soft. No tenderness. LABS: Hemoglobin 11.1, white count 12.8, BUN of 23, creatinine 0.76. Bronchoscopy culture so far negative. DIAGNOSTIC IMPRESSION AND PLAN: Patient with acute respiratory failure which is multifactorial in this patient with Covid 19 pneumonia, possibly aspiration. Patient is covered with Azactam, Flagyl because of his MULTIPLE ALLERGIES, but no MRSA. We will discontinue his vancomycin to decrease risk of nephrotoxicity and monitor clinical course closely. MMODL / IJN: [id number] /
[2020-09-13 00:21] LABS: Glucose,Whole Blood 114 mg/dL (75-99)
[2020-09-13] MEDS: INSULIN ASPART (NovoLOG) 100 UNIT/ML VIAL SQ SCH ×3 (00:22→18:03)
[2020-09-13 05:11] LABS: ABG Base Excess -0.1 mmol/L; ABG HCO3 23 mmol/L (21-25); ABG Oxygen Saturation 95.9 % (94-97); ABG PCO2 32 mmHg (35-45); ABG PH 7.48 (7.35-7.45); ABG PO2 80 mmHg (83-108); ABG TCO2 24 mmol/L (19-24); Allen Test Performed? Yes
[2020-09-13 05:20] LABS: HCT 37.9 % (39.0-53.0); HGB 12.6 gm/dL (13.0-17.5); MCH 31.7 pg (25.0-35.0); MCHC 33.2 g/dL (31.0-37.0); MCV 95.6 fL (80.0-100.0); Mean Platelet Volume 7.9; Platelet Count 205 k/uL (150-450); RBC 3.96 m/uL (4.30-5.90); RDW 14.2 % (11.5-15.5); WBC 16.1 k/uL (3.8-10.6)
[2020-09-13 05:36] LABS: ALT 114 U/L (4-49); AST 79 U/L (17-59); African American GFR (CKD) >90 (>60 ml/min/1.73 sqM); Albumin 2.1 g/dL (3.5-5.0); Alkaline Phosphatase 240 U/L (38-126); Anion Gap 4 mmol/L; Blood Urea Nitrogen 26 mg/dL (9-20); Calcium 8.6 mg/dL (8.4-10.2); Carbon Dioxide 24 mmol/L (22-30); Chloride 108 mmol/L (98-107); Glucose 116 mg/dL (74-99); Non-African American GFR(CKD) 90 (>60 ml/min/1.73 sqM); Potassium 4.1 mmol/L (3.5-5.1); Sodium 136 mmol/L (137-145); Total Bilirubin 0.5 mg/dL (0.2-1.3); Total Protein 4.4 g/dL (6.3-8.2)
[2020-09-13] MEDS: ARTIFICIAL TEARS-HYPROMELLOSE DROPS 15 ML BTL BOTH EYES SCH ×2 (06:13→08:29)
[2020-09-13 06:20] LABS: Glucose,Whole Blood 112 mg/dL (75-99)
[2020-09-13 06:24] LABS: Band Neutrophils % 5 %; Eosinophils # (M) 0.16 k/uL (0-0.7); Lymphocytes # (M) 1.29 k/uL (1.0-4.8); Metamyelocytes # (M) 1.61 k/uL (0); Metamyelocytes % 10 %; Monocytes # (M) 1.13 k/uL (0-1.0); Myelocytes # (M) 0.48 k/uL (0); Myelocytes % 3 %; Neutrophils % (M) 66 %; Nucleated Red Blood Cells 0 /100 WBC (0-0); Total Cells Counted 100
[2020-09-13] MEDS: LEVOTHYROXINE 112 MCG TAB PO SCH (06:42)
[2020-09-13] MEDS: metroNIDAZOLE-NS PMX 500 MG in SALINE 1 100ML.BAG IVPB SCH ×3 (06:42→23:04)
--- NOTE | 2020-09-13 07:16 | P.PN ---
Subjective Progress Note Date: 09/13/20 Principal diagnosis: Complete heart block This is a 74-year-old gentleman with multiple comorbid conditions was admitted to the hospital with pneumonia and sepsis and we involved in his care because of complete heart block requiring temporary pacemaker. The patient was seen today September [id number]. He still intubated and distal hemodynamically unstable. He is requiring less dose of norepinephrine. He possibly can be extubated later on today. History require 100% pacing. Objective - Vital Signs Vital signs: Vital Signs Temp 97.8 F 09/13/20 04:00 Pulse 80 09/13/20 07:00 Resp 26 H 09/13/20 07:00 BP 100/68 09/12/20 22:00 Pulse Ox 98 09/13/20 07:00 Intake & Output 09/12/20 09/13/20 09/13/20 18:59 06:59 18:59 Intake Total 2332.243 1193.305 168 Output Total 3300 1315 125 Balance -967.757 -121.695 43 Weight 94.6 kg 93.9 kg Intake: IV 1399 363 123 0.9 NACL 810 330 20 Aztreonam 2 gm In Sodium 200 Chloride 0.9% 100 ml @ 33 .3 mls/hr IVPB Q8HR [facility] Rx#:[id number] Vancomycin 1,250 mg In 250 Sodium Chloride 0.9% 250 ml @ 125 mls/hr IVPB Q12H [facility] Rx#:[id number] metroNIDAZOLE-NS PMX 500 100 100 mg In Saline 1 100ml.bag @ 100 mls/hr IVPB Q8H [facility] Rx#:[id number] pressure bag 39 33 3 Intake, IV Titration 348.243 275.305 Amount Norepinephrine 8 mg In 58.752 75.305 Sodium Chloride 0.9% 250 ml @ 0.19 MCG/KG/MIN 30. 184 mls/hr IV .Q8H33M [facility] Rx#:[id number] propofoL 1,000 mg In 289.491 200 Empty Bag 1 bag @ Titrate IV .Q0M [facility] Rx#: [id number] Tube Feeding 585 495 45 Other 60 Output: Urine 3300 1315 125 Other: Voiding Method Indwelling Catheter Indwelling Catheter ABP, PAP, CO, CI - Last Documented Arterial Blood Pressure 143/61 - Labs CBC & Chem 7: 09/13/20 05:13 09/13/20 05:13 Labs: Abnormal Lab Results - Last 24 Hours (Table) 09/10/20 09/12/20 09/13/20 Range/Units 05:00 17:15 00:18 WBC (3.8-10.6) k/uL RBC (4.30-5.90) m/uL Hgb (13.0-17.5) gm/dL Hct (39.0-53.0) % Neutrophils # (Manual) (1.3-7.7) k/uL Monocytes # (Manual) (0-1.0) k/uL Metamyelocytes # (Man) (0) k/uL Myelocytes # (Manual) (0) k/uL ABG pH 7.57 H* (7.35-7.45) ABG pCO2 (35-45) mmHg ABG pO2 (83-108) mmHg Sodium (137-145) mmol/L Chloride (98-107) mmol/L BUN (9-20) mg/dL Glucose (74-99) mg/dL POC Glucose (mg/dL) 119 H 114 H (75-99) mg/dL AST (17-59) U/L ALT (4-49) U/L Alkaline Phosphatase (38-126) U/L Total Protein (6.3-8.2) g/dL Albumin (3.5-5.0) g/dL 09/13/20 09/13/20 09/13/20 Range/Units 05:08 05:13 05:13 WBC 16.1 H (3.8-10.6) k/uL RBC 3.96 L (4.30-5.90) m/uL Hgb 12.6 L (13.0-17.5) gm/dL Hct 37.9 L (39.0-53.0) % Neutrophils # (Manual) 11.40 H (1.3-7.7) k/uL Monocytes # (Manual) 1.13 H (0-1.0) k/uL Metamyelocytes # (Man) 1.61 H (0) k/uL Myelocytes # (Manual) 0.48 H (0) k/uL ABG pH 7.48 H (7.35-7.45) ABG pCO2 32 L (35-45) mmHg ABG pO2 80 L (83-108) mmHg Sodium 136 L (137-145) mmol/L Chloride 108 H (98-107) mmol/L BUN 26 H (9-20) mg/dL Glucose 116 H (74-99) mg/dL POC Glucose (mg/dL) (75-99) mg/dL AST 79 H (17-59) U/L ALT 114 H (4-49) U/L Alkaline Phosphatase 240 H (38-126) U/L Total Protein 4.4 L (6.3-8.2) g/dL Albumin 2.1 L (3.5-5.0) g/dL 09/13/20 Range/Units 06:18 WBC (3.8-10.6) k/uL RBC (4.30-5.90) m/uL Hgb (13.0-17.5) gm/dL Hct (39.0-53.0) % Neutrophils # (Manual) (1.3-7.7) k/uL Monocytes # (Manual) (0-1.0) k/uL Metamyelocytes # (Man) (0) k/uL Myelocytes # (Manual) (0) k/uL ABG pH (7.35-7.45) ABG pCO2 (35-45) mmHg ABG pO2 (83-108) mmHg Sodium (137-145) mmol/L Chloride (98-107) mmol/L BUN (9-20) mg/dL Glucose (74-99) mg/dL POC Glucose (mg/dL) 112 H (75-99) mg/dL AST (17-59) U/L ALT (4-49) U/L Alkaline Phosphatase (38-126) U/L Total Protein (6.3-8.2) g/dL Albumin (3.5-5.0) g/dL Microbiology - Last 24 Hours (Table) 09/08/20 14:41 Blood Culture - Preliminary Blood No Growth after 96 hours 09/08/20 11:27 Blood Culture - Preliminary Blood No Growth after 96 hours 09/11/20 09:16 Gram Stain - Preliminary Bronchoalviolar Lavage - Right Bronchial Washings Culture - Preliminary 09/11/20 09:16 Acid Fast Bacilli Smear - Final Bronchoalviolar Lavage - Right Acid Fast Bacilli Culture - Preliminary Assessment and Plan Assessment: Assessment #1 acute hypoxic respiratory failure #2 pneumonia/sepsis #3 complete heart block Plan #1 continue the current medical regimen #2 the right wean the patient from norepinephrine #3 permanent pacemaker once the infection is resolved
[2020-09-13] MEDS ORDERED: FUROSEMIDE 10 MG/ML 4 ML VIAL IV STA (08:00)
[2020-09-13] MEDS: NOREPINEPHRINE 8 MG in SODIUM CHLORIDE 0.9% 250 ML IV SCH ×2 (08:27→11:14)
--- NOTE | 2020-09-13 08:27 | XR ---
EXAMINATION TYPE: XR chest 1V portable DATE OF EXAM: 09/13/2020 COMPARISON: Prior chest x-ray 09/12/2020 HISTORY: Intubated TECHNIQUE: Single frontal view of the chest is obtained. FINDINGS: Endotracheal tube, NG tube, right jugular central venous lead with tip in the right ventri mars, left jugular central venous catheter with distal tip overlying the superior vena cava are all ag ain noted. Bibasilar density, perihilar increased attenuation again noted. Patient is rotated. No marry dent pneumothorax. Heart is stable. Aorta is dense. IMPRESSION: Correlate for pneumonia, edema, ARDS
[2020-09-13] MEDS: HEPARIN SODIUM,PORCINE 5,000 UNIT/ML 1 ML VIAL SQ SCH ×2 (08:30→18:20)
[2020-09-13] MEDS: CHLORHEXIDINE GLUCONATE 15 ML CUP MUCOUS MEM SCH (08:31)
[2020-09-13] MEDS: AZTREONAM 2 GM in SODIUM CHLORIDE 0.9% 100 ML IVPB SCH ×2 (09:39→16:50)
[2020-09-13 10:17] LABS: ABG Base Excess 0.4 mmol/L; ABG HCO3 24 mmol/L (21-25); ABG Oxygen Saturation 97.1 % (94-97); ABG PCO2 35 mmHg (35-45); ABG PH 7.45 (7.35-7.45); ABG PO2 83 mmHg (83-108); ABG TCO2 25 mmol/L (19-24); Allen Test Performed? Yes
--- NOTE | 2020-09-13 11:07 | PN ---
PROGRESS NOTE PULMONARY/CRITICAL CARE PROGRESS NOTE: DATE OF SERVICE: September 13, 2020. Critical care time greater than 30 minutes. This is a patient who was seen in consultation on September 09. The patient was admitted on 09/08. The patient was admitted to the hospital with a diagnosis of pneumonia, sepsis, and third-degree heart block. The patient was apparently found by EMS at home having difficulty breathing with agonal respirations. The patient was bagged all the way to the emergency room. When the patient got to the emergency room, initially the patient was a bit better according to Dr. Collier, but unfortunately then developed some worsening respiratory status secondary to fluid overload and heart failure. Also at that time, the patient was noted to have heart block. The patient was intubated in the emergency room and went to the catheterization laboratory where Dr. Edmonds put in a temporary venous pacemaker. He was brought back to the ICU on the ventilator where he remains. Initially, he had very poor oxygenation. He was 100% and PEEP of 15. Currently, he is doing much better. Currently, he is on the volume assist-control modality rate of 26, tidal volume 400, FiO2 of 40%, PEEP of 5. Blood gases show PO2 of 80, pCO2 of 32, and a pH 7.48. These blood gases are consistent with a mild respiratory alkalosis. The patient is currently on norepinephrine at 3.3 mcg/minute, propofol at 50 mcg/kg per minute, saline at 40 mL an hour and Vital high- protein at goal which is 45 mL an hour. The patient remains on vancomycin, Flagyl, and Azactam. Yesterday, he had a spontaneous breathing trial on pressure support 5, CPAP of 5, but unfortunately only lasted 5 minutes. Today, the patient will get Lasix 40 mg IV push. After he starts diuresing, we will attempt another SBT. PHYSICAL EXAMINATION: VITAL SIGNS: Current vital signs include a temperature which is 97.8, heart rate which is 80, respiratory rate 26, blood pressure 143/61, and saturations are 98% on the mechanical ventilator. Appears in no acute distress. Currently sedated. HEENT: Examination is grossly unremarkable. There is an orally placed endotracheal tube and NG tube. NECK: Supple. Full range of motion. No adenopathy. Neck veins are flat. CARDIOVASCULAR: Examination reveals regular rhythm and rate. Heart rate 80. S1, S2 normal. Heart sounds are distant. LUNGS: Reveal diffuse coarse rhonchi. Breath sounds are equal. There are some crackles bilaterally. No wheezes. ABDOMEN: Soft. Bowel sounds are heard. EXTREMITIES: Intact. No edema. SKIN: Without rash. NEUROLOGIC: Examination cannot be adequately assessed. CURRENT LABORATORY DATA: Includes a white count 16.1, hemoglobin 12.6, hematocrit 37.9, platelet count normal. Blood gases have been noted. Sodium 136, potassium 4.1, chloride 108, CO2 24 anion gap is 4. BUN and creatinine were 26 and 0.75. AST 79, ALT 114, total protein 4.4, albumin 2.1. Microbiology is currently negative. IMAGING: His chest x-ray today shows bibasilar infiltrates. CURRENT MEDICATIONS: Include Artificial Tears, Azactam, Peridex, heparin subcu, insulin levothyroxine, magnesium replacement, Flagyl, norepinephrine, potassium replacement, and propofol. ASSESSMENT: 1. Acute hypoxemic respiratory failure, likely secondary to pneumonia, complicated by fluid overload, and third-degree heart block, with intubation for respiratory failure on September 08, 2020. 2. Third-degree heart block, status post temporary transvenous pacemaker. 3. Severe metabolic acidosis, improved. 4. Lactic acidemia, improved. 5. Rule out ischemic cardiac disease. 6. Hyponatremia, improved. 7. Acute kidney injury, likely secondary to ATN caused by hypotension. 8. Shock liver. 9. Hyperlipidemia. 10.Hypothyroidism. PLAN: Today, the patient will have a daily interruption of sedation. We will attempt a spontaneous breathing trial. We will wait until after he gets Lasix 40 mg IV push. He remains on a small amount of norepinephrine at 3.3 mcg/minute. He is currently on propofol and he is getting tube feeds at goal. His oxygenation is greatly improved. We will continue to follow. Prognosis is guarded. Culture data is negative. Critical care time greater than 30 minutes. MMODL / IJN: [id number] /
--- NOTE | 2020-09-13 11:41 | P.PN ---
Subjective Progress Note Date: 09/13/20 Principal diagnosis: Respiratory failure Patient is currently doing well, sensation is currently minimal. He is able to follow commands. No overnight events. Objective - Vital Signs Vital signs: Vital Signs Temp 97.8 F 09/13/20 04:00 Pulse 80 09/13/20 07:00 Resp 26 H 09/13/20 07:00 BP 100/68 09/12/20 22:00 Pulse Ox 98 09/13/20 07:00 Intake & Output 09/12/20 09/13/20 09/13/20 18:59 06:59 18:59 Intake Total 2332.243 1193.305 290.389 Output Total 3300 1315 125 Balance -967.757 -121.695 165.389 Weight 94.6 kg 93.9 kg Intake: IV 1399 363 123 0.9 NACL 810 330 20 Aztreonam 2 gm In Sodium 200 Chloride 0.9% 100 ml @ 33 .3 mls/hr IVPB Q8HR [facility] Rx#:[id number] Vancomycin 1,250 mg In 250 Sodium Chloride 0.9% 250 ml @ 125 mls/hr IVPB Q12H [facility] Rx#:[id number] metroNIDAZOLE-NS PMX 500 100 100 mg In Saline 1 100ml.bag @ 100 mls/hr IVPB Q8H [facility] Rx#:[id number] pressure bag 39 33 3 Intake, IV Titration 348.243 275.305 122.389 Amount Norepinephrine 8 mg In 58.752 75.305 22.389 Sodium Chloride 0.9% 250 ml @ 0.19 MCG/KG/MIN 30. 184 mls/hr IV .Q8H33M [facility] Rx#:[id number] propofoL 1,000 mg In 289.491 200 100 Empty Bag 1 bag @ Titrate IV .Q0M [facility] Rx#: [id number] Tube Feeding 585 495 45 Other 60 Output: Urine 3300 1315 125 Other: Voiding Method Indwelling Catheter Indwelling Catheter ABP, PAP, CO, CI - Last Documented Arterial Blood Pressure 143/61 - Exam Gen: Intubated, sedated HEENT: normocephalic, atraumatic, good hearing acuity, moist mucous membranes Resp: Venttidal volume 400, FiO2 40%, PEEP 10 CVS: good distal perfusion x 4, no appreciable murmurs GI: soft, NTTP, ND : no SPT, no CVAT, torre catheter is present MSK: 2+ pitting edema, no clubbing Neuro: non-focal, moving all extremities Psych: cooperative, euthymic mood - Labs CBC & Chem 7: 09/13/20 05:13 09/13/20 05:13 Labs: Abnormal Lab Results - Last 24 Hours (Table) 09/12/20 09/13/20 09/13/20 Range/Units 17:15 00:18 05:08 WBC (3.8-10.6) k/uL RBC (4.30-5.90) m/uL Hgb (13.0-17.5) gm/dL Hct (39.0-53.0) % Neutrophils # (Manual) (1.3-7.7) k/uL Monocytes # (Manual) (0-1.0) k/uL Metamyelocytes # (Man) (0) k/uL Myelocytes # (Manual) (0) k/uL ABG pH 7.48 H (7.35-7.45) ABG pCO2 32 L (35-45) mmHg ABG pO2 80 L (83-108) mmHg ABG Total CO2 (19-24) mmol/L ABG O2 Saturation (94-97) % Sodium (137-145) mmol/L Chloride (98-107) mmol/L BUN (9-20) mg/dL Glucose (74-99) mg/dL POC Glucose (mg/dL) 119 H 114 H (75-99) mg/dL AST (17-59) U/L ALT (4-49) U/L Alkaline Phosphatase (38-126) U/L Total Protein (6.3-8.2) g/dL Albumin (3.5-5.0) g/dL 09/13/20 09/13/20 09/13/20 Range/Units 05:13 05:13 06:18 WBC 16.1 H (3.8-10.6) k/uL RBC 3.96 L (4.30-5.90) m/uL Hgb 12.6 L (13.0-17.5) gm/dL Hct 37.9 L (39.0-53.0) % Neutrophils # (Manual) 11.40 H (1.3-7.7) k/uL Monocytes # (Manual) 1.13 H (0-1.0) k/uL Metamyelocytes # (Man) 1.61 H (0) k/uL Myelocytes # (Manual) 0.48 H (0) k/uL ABG pH (7.35-7.45) ABG pCO2 (35-45) mmHg ABG pO2 (83-108) mmHg ABG Total CO2 (19-24) mmol/L ABG O2 Saturation (94-97) % Sodium 136 L (137-145) mmol/L Chloride 108 H (98-107) mmol/L BUN 26 H (9-20) mg/dL Glucose 116 H (74-99) mg/dL POC Glucose (mg/dL) 112 H (75-99) mg/dL AST 79 H (17-59) U/L ALT 114 H (4-49) U/L Alkaline Phosphatase 240 H (38-126) U/L Total Protein 4.4 L (6.3-8.2) g/dL Albumin 2.1 L (3.5-5.0) g/dL 09/13/20 Range/Units 10:11 WBC (3.8-10.6) k/uL RBC (4.30-5.90) m/uL Hgb (13.0-17.5) gm/dL Hct (39.0-53.0) % Neutrophils # (Manual) (1.3-7.7) k/uL Monocytes # (Manual) (0-1.0) k/uL Metamyelocytes # (Man) (0) k/uL Myelocytes # (Manual) (0) k/uL ABG pH (7.35-7.45) ABG pCO2 (35-45) mmHg ABG pO2 (83-108) mmHg ABG Total CO2 25 H (19-24) mmol/L ABG O2 Saturation 97.1 H (94-97) % Sodium (137-145) mmol/L Chloride (98-107) mmol/L BUN (9-20) mg/dL Glucose (74-99) mg/dL POC Glucose (mg/dL) (75-99) mg/dL AST (17-59) U/L ALT (4-49) U/L Alkaline Phosphatase (38-126) U/L Total Protein (6.3-8.2) g/dL Albumin (3.5-5.0) g/dL Microbiology - Last 24 Hours (Table) 09/11/20 09:16 Gram Stain - Final Bronchoalviolar Lavage - Right Bronchial Washings Culture - Final 09/08/20 14:41 Blood Culture - Preliminary Blood No Growth after 96 hours 09/08/20 11:27 Blood Culture - Preliminary Blood No Growth after 96 hours Assessment and Plan Plan: Unresponsiveness, suspected secondary to bradycardia/complete heart block Acute hypoxic respiratory failure, on mechanical ventilation. Probable community-acquired pneumonia versus aspiration pneumonia -Status post transvenous pacer for third-degree AV block with bradycardia on 09/08/20 followed by cardiology. -Status post bronch with BAL on 09/11, pending culture results -Infectious disease following: Patient on aztreonam, Flagyl, ID discontinued vancomycin on 09/12. No history of MRSA. -Follow-up cultures -Echocardiogram unremarkable with LVEF 55-60% and normal LV wall thickness -COVID 19 PCR negative -Vent management as per the Scheduling Agent Fluid overload/anasarca Secondary to IV hydration Hold IV fluids Getting daily lasix IV NAN -Resolved Abnormal LFTs -Likely due to poor perfusion of the liver due to hypotension -Continue to monitor for now Hyponatremia -Improved Hyperglycemia -A1c 5.4 -Hyperglycemia likely secondary to acute stress -Continue to monitor for now Ventral hernia -Outpatient follow-up DVT prophylaxis -Heparin Discussed with RN in ICU staff.
[2020-09-13 12:24] LABS: Glucose,Whole Blood 103 mg/dL (75-99)
--- NOTE | 2020-09-13 21:53 | PN ---
PROGRESS NOTE DATE OF SERVICE: 09/13/2020 REASON FOR FOLLOWUP: Aspiration pneumonia. INTERVAL HISTORY: The patient is currently afebrile. The patient has been extubated. The patient is currently breathing comfortably. Denies having any chest pain. He did have a cough, not bringing up any sputum. No nausea, no vomiting, no abdominal pain or diarrhea. PHYSICAL EXAMINATION: Blood pressure 100/68 with a pulse of 80, temperature 98.4. He is 96% on 4 L nasal cannula. General description is an elderly male lying in bed in no distress. RESPIRATORY SYSTEM: Unlabored breathing with decreased breath sounds at the base. No wheeze. HEART: S1, S2. Regular rate and rhythm. ABDOMEN: Soft. No tenderness. LABS: Hemoglobin is 10.6, white count 16.1. BUN of 26, creatinine 0.75. DIAGNOSTIC IMPRESSION AND PLAN: Patient admitted to hospital with unresponsiveness, concern for aspiration pneumonia in this patient status post culture has been negative so far. The patient allergy and is currently covered with Azactam and Flagyl; to continue. White count showing a downward trend. Continue with supportive care. MMODL / IJN: [id number] /
[2020-09-14] MEDS: HEPARIN SODIUM,PORCINE 5,000 UNIT/ML 1 ML VIAL SQ SCH ×3 (00:25→16:44)
[2020-09-14] MEDS: AZTREONAM 2 GM in SODIUM CHLORIDE 0.9% 100 ML IVPB SCH ×3 (00:25→16:44)
[2020-09-14] MEDS: INSULIN ASPART (NovoLOG) 100 UNIT/ML VIAL SQ SCH ×5 (00:34→23:31)
[2020-09-14 00:36] LABS: Glucose,Whole Blood 73 mg/dL (75-99)
[2020-09-14 06:27] LABS: Glucose,Whole Blood 90 mg/dL (75-99)
[2020-09-14] MEDS: LEVOTHYROXINE 112 MCG TAB PO SCH (06:30)
[2020-09-14] MEDS: metroNIDAZOLE-NS PMX 500 MG in SALINE 1 100ML.BAG IVPB SCH ×3 (06:32→23:02)
[2020-09-14 06:37] LABS: HCT 35.9 % (39.0-53.0); HGB 11.9 gm/dL (13.0-17.5); MCHC 33.1 g/dL (31.0-37.0); MCV 96.5 fL (80.0-100.0); Mean Platelet Volume 7.9; Platelet Count 212 k/uL (150-450); RBC 3.71 m/uL (4.30-5.90); RDW 14.3 % (11.5-15.5); WBC 20.1 k/uL (3.8-10.6)
[2020-09-14 06:51] LABS: ALT 83 U/L (4-49); AST 79 U/L (17-59); African American GFR (CKD) >90 (>60 ml/min/1.73 sqM); Albumin 2.3 g/dL (3.5-5.0); Alkaline Phosphatase 217 U/L (38-126); Anion Gap 2 mmol/L; Blood Urea Nitrogen 32 mg/dL (9-20); Calcium 8.3 mg/dL (8.4-10.2); Carbon Dioxide 27 mmol/L (22-30); Chloride 108 mmol/L (98-107); Glucose 93 mg/dL (74-99); Non-African American GFR(CKD) 82 (>60 ml/min/1.73 sqM); Potassium 4.5 mmol/L (3.5-5.1); Sodium 137 mmol/L (137-145); Total Bilirubin 0.9 mg/dL (0.2-1.3); Total Protein 4.6 g/dL (6.3-8.2)
--- NOTE | 2020-09-14 07:02 | XR ---
EXAMINATION TYPE: XR chest 1V portable DATE OF EXAM: 09/14/2020 CLINICAL HISTORY: Difficulty breathing progress study. TECHNIQUE: Single AP portable upright view of the chest is obtained. COMPARISON: Chest x-ray from one day earlier FINDINGS: Interval extubation with removal of endotracheal and orogastric tubes. Stable left interna l jugular central venous catheter. Stable right internal jugular pacemaker lead terminating near righ t ventricle. Cardiac silhouette size stable and within normal limits with atherosclerotic change in the aortic kno b. Persistent mid to basilar opacities bilaterally with small left pleural effusion. Multilevel spurr ing in thoracic spine redemonstrated. IMPRESSION: Interval extubation. Persistent left greater than right multifocal acute infiltrates and/ or edema in the mid to lower lungs with small left pleural effusion.
[2020-09-14 07:04] LABS: Band Neutrophils % 1 %; Lymphocytes # (M) 2.61 k/uL (1.0-4.8); Monocytes # (M) 1.41 k/uL (0-1.0); Myelocytes # (M) 1.01 k/uL (0); Myelocytes % 5 %; Neutrophils % (M) 76 %; Nucleated Red Blood Cells 0 /100 WBC (0-0); Total Cells Counted 200
[2020-09-14] MEDS: NOREPINEPHRINE 8 MG in SODIUM CHLORIDE 0.9% 250 ML IV SCH ×2 (07:50→07:51)
[2020-09-14] MEDS ORDERED: FUROSEMIDE 10 MG/ML 4 ML VIAL IV STA (08:11)
--- NOTE | 2020-09-14 10:42 | P.PN ---
Subjective Progress Note Date: 09/14/20 Principal diagnosis: Complete heart block This is a 74-year-old gentleman with multiple comorbid conditions was admitted to the hospital with pneumonia and sepsis and we involved in his care because of complete heart block requiring temporary pacemaker. The patient was seen today in September [id number]. He was extubated. He is awake and alert and oriented. Hemodynamically he is a stable and not on any vasopressors anymore. His chest x-ray showed findings consistent with vascular congestion. He was given Lasix one dose earlier today. He continues to be in third degree AV block require temporary pacing. Objective - Vital Signs Vital signs: Vital Signs Temp 99.1 F 09/14/20 08:00 Pulse 80 09/14/20 09:00 Resp 24 09/14/20 09:00 BP 100/68 09/14/20 08:00 Pulse Ox 93 L 09/14/20 09:00 Intake & Output 09/13/20 09/14/20 09/14/20 18:59 06:59 18:59 Intake Total 724.634 396 199 Output Total 2390 1140 475 Balance -1665.366 -744 -276 Weight 93.9 kg 92.3 kg Intake: IV 556 396 199 0.9 NACL 320 360 90 Aztreonam 2 gm In Sodium 100 100 Chloride 0.9% 100 ml @ 33 .3 mls/hr IVPB Q8HR [facility] Rx#:[id number] metroNIDAZOLE-NS PMX 500 100 mg In Saline 1 100ml.bag @ 100 mls/hr IVPB Q8H [facility] Rx#:[id number] pressure bag 36 36 9 Intake, IV Titration 123.634 Amount Norepinephrine 8 mg In 23.634 Sodium Chloride 0.9% 250 ml @ 0.19 MCG/KG/MIN 30. 184 mls/hr IV .Q8H33M [facility] Rx#:[id number] propofoL 1,000 mg In 100 Empty Bag 1 bag @ Titrate IV .Q0M [facility] Rx#: [id number] Tube Feeding 45 Output: Urine 2390 1140 475 Other: Voiding Method Indwelling Catheter Indwelling Catheter Indwelling Catheter ABP, PAP, CO, CI - Last Documented Arterial Blood Pressure 104/48 - Constitutional General appearance: Present: no acute distress - Respiratory Respiratory: bilateral: diminished - Cardiovascular Heart sounds: normal: S1, S2 - Labs CBC & Chem 7: 09/14/20 06:19 09/14/20 06:19 Labs: Abnormal Lab Results - Last 24 Hours (Table) 09/13/20 09/14/20 09/14/20 Range/Units 12:12 00:33 06:19 WBC 20.1 H (3.8-10.6) k/uL RBC 3.71 L (4.30-5.90) m/uL Hgb 11.9 L (13.0-17.5) gm/dL Hct 35.9 L (39.0-53.0) % Neutrophils # (Manual) 15.40 H (1.3-7.7) k/uL Monocytes # (Manual) 1.41 H (0-1.0) k/uL Myelocytes # (Manual) 1.01 H (0) k/uL Chloride (98-107) mmol/L BUN (9-20) mg/dL POC Glucose (mg/dL) 103 H 73 L (75-99) mg/dL Calcium (8.4-10.2) mg/dL AST (17-59) U/L ALT (4-49) U/L Alkaline Phosphatase (38-126) U/L Total Protein (6.3-8.2) g/dL Albumin (3.5-5.0) g/dL 09/14/20 Range/Units 06:19 WBC (3.8-10.6) k/uL RBC (4.30-5.90) m/uL Hgb (13.0-17.5) gm/dL Hct (39.0-53.0) % Neutrophils # (Manual) (1.3-7.7) k/uL Monocytes # (Manual) (0-1.0) k/uL Myelocytes # (Manual) (0) k/uL Chloride 108 H (98-107) mmol/L BUN 32 H (9-20) mg/dL POC Glucose (mg/dL) (75-99) mg/dL Calcium 8.3 L (8.4-10.2) mg/dL AST 79 H (17-59) U/L ALT 83 H (4-49) U/L Alkaline Phosphatase 217 H (38-126) U/L Total Protein 4.6 L (6.3-8.2) g/dL Albumin 2.3 L (3.5-5.0) g/dL Microbiology - Last 24 Hours (Table) 09/08/20 14:41 Blood Culture - Preliminary Blood No Growth after 120 hours 09/08/20 11:27 Blood Culture - Preliminary Blood No Growth after 120 hours 09/11/20 09:16 Gram Stain - Final Bronchoalviolar Lavage - Right Bronchial Washings Culture - Final Assessment and Plan Assessment: Assessment #1 acute hypoxic respiratory failure #2 pneumonia/sepsis #3 complete heart block Plan #1 continue the temporary pacing at this point #2 consider permanent pacemaker in the next few days #3 follow-up with the patient
[2020-09-14 12:08] LABS: Glucose,Whole Blood 72 mg/dL (75-99)
--- NOTE | 2020-09-14 12:08 | PN ---
PROGRESS NOTE PULMONARY/CRITICAL CARE PROGRESS NOTE: DATE OF SERVICE: 09/14/2020 This is a 74-year-old gentleman who was admitted back on September 08. He was admitted to the hospital with a diagnosis of pneumonia, sepsis, and third-degree heart block. He was apparently found at home to have difficulty in breathing. His respirations were apparently agonal and EMS was called and when they arrived to the house, they started bagging him. Apparently when he got to the emergency room, according to Dr. Collier, he was looking much better. Subsequent to that, he received fluid in the emergency room for hypotension and then developed pulmonary edema. In addition, he was noted to have heart block. For that reason, he was intubated and mechanically ventilated. He was taken to the catheterization laboratory where Dr. Edmonds put in a temporary venous pacemaker. The patient was extubated yesterday from mechanical ventilation. Currently, he is doing reasonably well. He is currently on 6 L nasal cannula high flow, and saline at 40 mL an hour. He is currently on Azactam and Flagyl. He will get Lasix 40 mg IV push x1 today. His microbiologic studies are thus far negative. We will get speech to evaluate him and determine his swallowing mechanism and will make sure that PT and OT seems him as well. Again, he was extubated successfully on September 13. Prior to that, he was on the volume assist-control modality. Initially when he came into the ICU, he required high concentrations of oxygen and high levels of positive end expiratory pressure. PHYSICAL EXAMINATION: VITAL SIGNS: Current vital signs are reviewed. Temperature 99.1, heart rate 80, respiratory rate 24, blood pressure 104/48, saturations are 93% on 6 L nasal cannula. Appears in no acute distress. HEENT: Examination is grossly unremarkable. NECK: Supple. Full range of motion. No adenopathy. Neck veins are flat. CARDIOVASCULAR: Examination reveals regular rhythm and rate. Heart rate 80. S1, S2 normal. LUNGS: Reveal a few scattered rhonchi. No wheezes or crackles. Breath sounds equal. ABDOMEN: Soft. Bowel sounds are noted. EXTREMITIES are intact. Minimal edema. SKIN: Without rash. NEUROLOGIC: Examination is brief but nonfocal. The patient is a bit confused. CURRENT LABORATORY DATA: Reviewed. White count 20.1, hemoglobin 11.9, hematocrit 35.9, platelet count 312,000. Blood gases yesterday were noted. Sodium 137, potassium 4.5, chloride 108, CO2 27, anion gap 2. BUN and creatinine were 32 and 0.91. Calcium 8.3, AST 79, ALT 83, and albumin is 2.3. Microbiology including bronch washes are all negative thus far. A chest x-ray from September 14 shows left greater than right multifocal areas of infiltrates and/or edema. There is a small left pleural effusion as well. CURRENT MEDICATIONS: Reviewed. The patient is on Azactam, Lasix x1 dose, subcu heparin, insulin, levothyroxine, magnesium replacement, Flagyl, and potassium replacement. ASSESSMENT: 1. Acute hypoxemic respiratory failure, likely secondary to pneumonia, complicated by fluid overload, and third-degree heart block, with intubation for respiratory failure on September 08, 2020 and successful extubation from mechanical ventilation on September 13, 2020. 2. Third-degree heart block, status post temporary transvenous pacemaker. 3. Severe metabolic acidosis, resolved. 4. Lactic acidemia, resolved. 5. Rule out cardiac disease. 6. Hyponatremia, recovered. 7. Acute kidney injury, likely secondary to acute tubular necrosis caused by hypotension, improved. 8. Shock liver. 9. Hyperlipidemia. 10.Hypothyroidism. PLAN: The patient was extubated successfully yesterday. The patient remains on O2 at 6 L. The patient is getting saline at 40 mL an hour. We will give the patient 1 dose of Lasix 40 mg IV push. The patient remains on Azactam and Flagyl as per ID. Will get speech involved. Will check his swallowing mechanism, and we will make sure that he has physical therapy and occupational therapy involved as well. MMODL / IJN: [id number] /
[2020-09-14] MEDS ORDERED: FLUCONAZOLE 100 MG TAB PO ONE (15:15)
--- NOTE | 2020-09-14 15:46 | P.PN ---
Subjective Progress Note Date: 09/14/20 (comfort charting seen at 1045) Principal diagnosis: shortness of breath Patient is a 74-year-old male with a past medical history of hypothyroidism, ventral hernia who presented to the ER for shortness of breath. He was ultimately found to have unresponsive episode with agonal breathing secondary to hypoxemia, third-degree heart block with resultant bradycardia, and bilateral pneumonia. He had an urgent temporary pacemaker placed in the mechanical laboratory technician. Patient seen and examined at bedside. He denies any difficulty with shortness of breath, nausea, vomiting, or diarrhea. He denies any chest discomfort. General: non toxic, no distress, appears at stated age Derm: warm, dry Head: atraumatic, normocephalic, symmetric Eyes: EOMI, no lid lag, anicteric sclera Mouth: no lip lesion, mucus membranes moist Cardiovascular: S1S2 reg, no murmur, positive posterior tibial pulse bilateral, Lungs: CTA bilateral, no rhonchi, no rales , no accessory muscle use Abdominal: soft, nontender to palpation, no guarding, no appreciable organomegaly Ext: no gross muscle atrophy, no edema, no contractures Neuro: CN II-XI grossly intact, no focal neuro deficits Psych: Alert, oriented, blunted affect, slow bid thinking Community-acquired pneumonia, acute hypoxic respiratory failure - suspect bacterail wtih Procalcitonin 25.3 -Initial sputum culture with no growth, AFB negative, fungal culture pending -Covid test negative and sputum and bronchial alveolar lavage -Extubated 09/13, intermittent difficulty with swallowing. Speech therapy consulted -On aztreonam, diflucan, and metronidazole, -Pulmonary and infectious disease recommendations appreciated -Wean O2 as able Fluid overload - Lasix being dose daily Third-degree heart block -Cardiology recommendations. Continue temporary pacer, once infection improved will patient will need permanent pacemaker Elevated troponin - due to hypoxemia - not consistent with acute coronary syndrome. Hypothyroidism -Continue Synthroid Lactic acidosis, resolved Hyponatremia, resolved Hyperglycemia without known history of diabetes, resolved Acute kidney injury, resolved DVT prophylaxis: heparin Discussed with: patient, nursing Anticipated discharge: 5-6 days, Anticipated discharge place: likely will need rehab A total of 25minutes was spent on the care of this complex patient more than 50% of the time was spent in counseling and care coordination. Objective - Vital Signs Vital signs: Vital Signs Temp 98.0 F 09/14/20 12:00 Pulse 80 09/14/20 15:00 Resp 19 09/14/20 15:00 BP 100/68 09/14/20 08:00 Pulse Ox 96 09/14/20 15:00 Intake & Output 09/13/20 09/14/20 09/14/20 18:59 06:59 18:59 Intake Total 724.634 396 571 Output Total 2390 1140 1800 Balance -1665.366 -74 -1229 Weight 93.9 kg 92.3 kg 92.3 kg Intake: IV 556 396 571 0.9 NACL 320 360 350 Aztreonam 2 gm In Sodium 100 100 Chloride 0.9% 100 ml @ 33 .3 mls/hr IVPB Q8HR [facility] Rx#:[id number] metroNIDAZOLE-NS PMX 500 100 100 mg In Saline 1 100ml.bag @ 100 mls/hr IVPB Q8H [facility] Rx#:[id number] pressure bag 36 36 21 Intake, IV Titration 123.634 Amount Norepinephrine 8 mg In 23.634 Sodium Chloride 0.9% 250 ml @ 0.19 MCG/KG/MIN 30. 184 mls/hr IV .Q8H33M [facility] Rx#:[id number] propofoL 1,000 mg In 100 Empty Bag 1 bag @ Titrate IV .Q0M [facility] Rx#: [id number] Tube Feeding 45 Output: Urine 2390 1140 1800 Other: Voiding Method Indwelling Catheter Indwelling Catheter Indwelling Catheter ABP, PAP, CO, CI - Last Documented Arterial Blood Pressure 109/44 - Labs CBC & Chem 7: 09/14/20 06:19 09/14/20 06:19 Labs: Abnormal Lab Results - Last 24 Hours (Table) 09/14/20 09/14/20 09/14/20 Range/Units 00:33 06:19 06:19 WBC 20.1 H (3.8-10.6) k/uL RBC 3.71 L (4.30-5.90) m/uL Hgb 11.9 L (13.0-17.5) gm/dL Hct 35.9 L (39.0-53.0) % Neutrophils # (Manual) 15.40 H (1.3-7.7) k/uL Monocytes # (Manual) 1.41 H (0-1.0) k/uL Myelocytes # (Manual) 1.01 H (0) k/uL Chloride 108 H (98-107) mmol/L BUN 32 H (9-20) mg/dL POC Glucose (mg/dL) 73 L (75-99) mg/dL Calcium 8.3 L (8.4-10.2) mg/dL AST 79 H (17-59) U/L ALT 83 H (4-49) U/L Alkaline Phosphatase 217 H (38-126) U/L Total Protein 4.6 L (6.3-8.2) g/dL Albumin 2.3 L (3.5-5.0) g/dL 09/14/20 Range/Units 12:07 WBC (3.8-10.6) k/uL RBC (4.30-5.90) m/uL Hgb (13.0-17.5) gm/dL Hct (39.0-53.0) % Neutrophils # (Manual) (1.3-7.7) k/uL Monocytes # (Manual) (0-1.0) k/uL Myelocytes # (Manual) (0) k/uL Chloride (98-107) mmol/L BUN (9-20) mg/dL POC Glucose (mg/dL) 72 L (75-99) mg/dL Calcium (8.4-10.2) mg/dL AST (17-59) U/L ALT (4-49) U/L Alkaline Phosphatase (38-126) U/L Total Protein (6.3-8.2) g/dL Albumin (3.5-5.0) g/dL Microbiology - Last 24 Hours (Table) 09/08/20 11:27 Blood Culture - Final Blood No Growth after 144 hours 09/08/20 14:41 Blood Culture - Preliminary Blood No Growth after 120 hours
[2020-09-14] MEDS: FLUCONAZOLE IN NACL,ISO-OSM 200 MG in SALINE 1 100ML.BAG IVPB SCH (16:44)
--- NOTE | 2020-09-14 17:04 | PN ---
PROGRESS NOTE DATE OF SERVICE: 09/14/2020 REASON FOR FOLLOWUP: Aspiration pneumonia. INTERVAL HISTORY: The patient is currently afebrile. Patient is breathing more comfortably. The patient is awake, alert. Denies any chest pain or shortness of breath. No cough. No abdominal pain or diarrhea. PHYSICAL EXAMINATION: Blood pressure 108/44 with a pulse of 80, temperature is 98. He is 97% on 6 L nasal cannula. General description is an elderly male lying in bed in no distress. Respiratory system: Unlabored breathing with decreased breath sounds at the base, no wheeze. Heart S1, S2. Regular rate and rhythm. Abdomen soft, no tenderness. LABS: Hemoglobin 11.9, white count 20.1, BUN of 32, creatinine 0.91. Bronch and sputum culture have been negative so far. DIAGNOSTIC IMPRESSION AND PLAN: Patient with an episode of unresponsiveness in this patient with a component of pneumonia, possible aspiration, covered with Azactam and Flagyl. He was noticed to have slight worsening of the white count. Will add ( ) monitor clinical course closely. Continue supportive care condition. MMODL / IJN: [id number] /
[2020-09-14 19:02] LABS: Glucose,Whole Blood 106 mg/dL (75-99)
[2020-09-14 23:10] LABS: Glucose,Whole Blood 92 mg/dL (75-99)
[2020-09-15] MEDS: AZTREONAM 2 GM in SODIUM CHLORIDE 0.9% 100 ML IVPB SCH ×3 (00:27→16:16)
[2020-09-15] MEDS: HEPARIN SODIUM,PORCINE 5,000 UNIT/ML 1 ML VIAL SQ SCH ×3 (00:27→16:15)
[2020-09-15 04:41] LABS: HCT 35.2 % (39.0-53.0); HGB 11.4 gm/dL (13.0-17.5); MCH 31.8 pg (25.0-35.0); MCHC 32.5 g/dL (31.0-37.0); MCV 97.8 fL (80.0-100.0); Mean Platelet Volume 8.6; Platelet Count 237 k/uL (150-450); RDW 14.2 % (11.5-15.5); WBC 23.2 k/uL (3.8-10.6)
[2020-09-15 05:13] LABS: Calcium 8.2 mg/dL (8.4-10.2); Magnesium 1.7 mg/dL (1.6-2.3); Phosphorus 3.7 mg/dL (2.5-4.5)
[2020-09-15] MEDS: MAGNESIUM SULFATE-D5W PMX 1 GM in DEXTROSE/WATER 1 100ML.BAG IVPB SCH ×2 (05:46→08:13)
[2020-09-15] MEDS: INSULIN ASPART (NovoLOG) 100 UNIT/ML VIAL SQ SCH ×3 (05:47→18:14)
[2020-09-15] MEDS: metroNIDAZOLE-NS PMX 500 MG in SALINE 1 100ML.BAG IVPB SCH ×3 (05:47→23:14)
[2020-09-15] MEDS: LEVOTHYROXINE 112 MCG TAB PO SCH (05:47)
[2020-09-15 05:55] LABS: Glucose,Whole Blood 99 mg/dL (75-99)
--- NOTE | 2020-09-15 06:59 | XR ---
EXAMINATION TYPE: XR chest 1V portable DATE OF EXAM: 09/15/2020 CLINICAL HISTORY: Difficulty breathing progress study. TECHNIQUE: Single AP portable semiupright view of the chest is obtained. COMPARISON: Chest x-ray from one day earlier and older studies FINDINGS: Stable left internal jugular central venous catheter. Stable right internal jugular pacema ker lead terminating in right heart. Cardiac silhouette size stable and within normal limits with atherosclerotic change in the aortic kno b. Persistent mid to basilar opacities left lung with small left pleural effusion. Improved aeration right lower lung. New bilateral reticular and reticulonodular opacities of the lung opacities on curr ent study. Multilevel spurring in thoracic spine redemonstrated. IMPRESSION: Stable left mid to lower lung multifocal acute infiltrates with small left pleural effusi on. Improved aeration right mid to lower lung. However new bilateral upper lung reticulonodular edema and/or infiltrates noted.
--- NOTE | 2020-09-15 08:28 | P.PN ---
Subjective Progress Note Date: 09/15/20 Principal diagnosis: Complete heart block This is a 74-year-old gentleman with multiple comorbid conditions was admitted to the hospital with pneumonia and sepsis and we involved in his care because of complete heart block requiring temporary pacemaker. The patient was seen today August 152020. He is slightly confused. He remains hemodynamically stable. He remains pacemaker dependent. The chest x- ray showed infiltrate and also component of edema. I'm going to give the patient 20 mg of Lasix IV and continue monitor the kidney function and electrolytes. We'll continue following up with the patient Objective - Vital Signs Vital signs: Vital Signs Temp 97.6 F 09/15/20 04:00 Pulse 80 09/15/20 07:00 Resp 26 H 09/15/20 07:00 BP 107/57 09/15/20 05:00 Pulse Ox 91 L 09/15/20 07:00 Intake & Output 09/14/20 09/15/20 09/15/20 18:59 06:59 18:59 Intake Total 817 916 43 Output Total 1974 665 45 Balance -1158 251 -2 Weight 92.3 kg 87 kg Intake: IV 817 816 43 0.9 NACL 390 480 40 Aztreonam 2 gm In Sodium 200 100 Chloride 0.9% 100 ml @ 33 .3 mls/hr IVPB Q8HR [facility] Rx#:[id number] Fluconazole in NaCl,Iso- 100 Osm 200 mg In Saline 1 100ml.bag @ 100 mls/hr IVPB DAILY@1200 [facility] Rx#: [id number] metroNIDAZOLE-NS PMX 500 100 200 mg In Saline 1 100ml.bag @ 100 mls/hr IVPB Q8H [facility] Rx#:[id number] pressure bag 27 36 3 Intake, IV Titration 100 Amount Magnesium Sulfate-D5w Pmx 100 1 gm In Dextrose/Water 1 100ml.bag @ 100 mls/hr IVPB Q1H [facility] Rx#: [id number] Output: Urine 1974 665 45 Other: Voiding Method Indwelling Catheter Indwelling Catheter ABP, PAP, CO, CI - Last Documented Arterial Blood Pressure 105/50 - Constitutional General appearance: Present: no acute distress - Respiratory Respiratory: bilateral: rales - Cardiovascular Heart sounds: normal: S1, S2 - Labs CBC & Chem 7: 09/15/20 04:30 09/15/20 04:30 Labs: Abnormal Lab Results - Last 24 Hours (Table) 09/14/20 09/14/20 09/15/20 Range/Units 12:07 19:00 04:30 WBC 23.2 H (3.8-10.6) k/uL RBC 3.60 L (4.30-5.90) m/uL Hgb 11.4 L (13.0-17.5) gm/dL Hct 35.2 L (39.0-53.0) % Chloride (98-107) mmol/L BUN (9-20) mg/dL Glucose (74-99) mg/dL POC Glucose (mg/dL) 72 L 106 H (75-99) mg/dL Calcium (8.4-10.2) mg/dL 09/15/20 Range/Units 04:30 WBC (3.8-10.6) k/uL RBC (4.30-5.90) m/uL Hgb (13.0-17.5) gm/dL Hct (39.0-53.0) % Chloride 111 H (98-107) mmol/L BUN 34 H (9-20) mg/dL Glucose 108 H (74-99) mg/dL POC Glucose (mg/dL) (75-99) mg/dL Calcium 8.2 L (8.4-10.2) mg/dL Microbiology - Last 24 Hours (Table) 09/08/20 14:41 Blood Culture - Final Blood No Growth after 144 hours 09/08/20 11:27 Blood Culture - Final Blood No Growth after 144 hours Assessment and Plan Assessment: Assessment #1 acute hypoxic respiratory failure #2 pneumonia/sepsis #3 complete heart block Plan #1 continue the temporary pacing at this point #2 consider permanent pacemaker in the next few days #3 give the patient 20 mg of Lasix IV #4 follow-up with the patient
[2020-09-15] MEDS: FUROSEMIDE 10 MG/ML 2 ML VIAL IV SCH (08:54)
[2020-09-15] MEDS: methylPREDNISolone SOD SUCCI 40 MG/ML 1 ML VIAL IV SCH ×2 (09:46→18:14)
[2020-09-15] MEDS: IPRATROPIUM-ALBUTEROL 3 ML NEB INHALATION SCH ×3 (10:31→19:02)
--- NOTE | 2020-09-15 10:47 | P.PN ---
Subjective Progress Note Date: 09/15/20 Pt is awake and conversive today. He does appear to be short of breath with talking. Audible wheezing on exam. Objective - Vital Signs Vital signs: Vital Signs Temp 98.4 F 09/15/20 08:00 Pulse 80 09/15/20 10:40 Resp 24 09/15/20 10:00 BP 110/66 09/15/20 10:00 Pulse Ox 89 L 09/15/20 10:00 Intake & Output 09/14/20 09/15/20 09/15/20 18:59 06:59 18:59 Intake Total 817 916 372 Output Total 1974 665 545 Balance -1158 251 -173 Weight 92.3 kg 87 kg Intake: IV 817 816 272 0.9 NACL 390 480 160 Aztreonam 2 gm In Sodium 200 100 100 Chloride 0.9% 100 ml @ 33 .3 mls/hr IVPB Q8HR [facility] Rx#:[id number] Fluconazole in NaCl,Iso- 100 Osm 200 mg In Saline 1 100ml.bag @ 100 mls/hr IVPB DAILY@1200 [facility] Rx#: [id number] metroNIDAZOLE-NS PMX 500 100 200 mg In Saline 1 100ml.bag @ 100 mls/hr IVPB Q8H [facility] Rx#:[id number] pressure bag 27 36 12 Intake, IV Titration 100 100 Amount Magnesium Sulfate-D5w Pmx 100 100 1 gm In Dextrose/Water 1 100ml.bag @ 100 mls/hr IVPB Q1H [facility] Rx#: [id number] Output: Urine 1974 665 545 Other: Voiding Method Indwelling Catheter Indwelling Catheter Indwelling Catheter ABP, PAP, CO, CI - Last Documented Arterial Blood Pressure 110/49 - Exam Gen: awake, alert HEENT: normocephalic, atraumatic, good hearing acuity, moist mucous membranes Resp: Venttidal volume 400, FiO2 40%, PEEP 10; diffuse expiratory wheezing throughout, +LLL crackles CVS: good distal perfusion x 4, no appreciable murmurs GI: soft, NTTP, ND : no SPT, no CVAT, torre catheter is present MSK: no pitting edema, no clubbing Neuro: non-focal, moving all extremities Psych: cooperative, euthymic mood - Labs CBC & Chem 7: 09/15/20 04:30 09/15/20 04:30 Labs: Abnormal Lab Results - Last 24 Hours (Table) 09/14/20 09/14/20 09/15/20 Range/Units 12:07 19:00 04:30 WBC 23.2 H (3.8-10.6) k/uL RBC 3.60 L (4.30-5.90) m/uL Hgb 11.4 L (13.0-17.5) gm/dL Hct 35.2 L (39.0-53.0) % Chloride (98-107) mmol/L BUN (9-20) mg/dL Glucose (74-99) mg/dL POC Glucose (mg/dL) 72 L 106 H (75-99) mg/dL Calcium (8.4-10.2) mg/dL 09/15/20 Range/Units 04:30 WBC (3.8-10.6) k/uL RBC (4.30-5.90) m/uL Hgb (13.0-17.5) gm/dL Hct (39.0-53.0) % Chloride 111 H (98-107) mmol/L BUN 34 H (9-20) mg/dL Glucose 108 H (74-99) mg/dL POC Glucose (mg/dL) (75-99) mg/dL Calcium 8.2 L (8.4-10.2) mg/dL Microbiology - Last 24 Hours (Table) 09/08/20 14:41 Blood Culture - Final Blood No Growth after 144 hours 09/08/20 11:27 Blood Culture - Final Blood No Growth after 144 hours Assessment and Plan Assessment: Unresponsiveness, suspected secondary to bradycardia Acute hypoxic respiratory failure, on mechanical ventilation -Status post transvenous pacer for third-degree AV block with bradycardia on 09/08/20 -Status post bronch with BAL on 09/11,with no growth thus far, fungal cx pending -Infectious disease following: Patient on aztreonam, Flagyl, and Fluconazole -Follow-up cultures = NGTD -Echocardiogram unremarkable with LVEF 55-60% and normal LV wall thickness -COVID 19 PCR negative -Vent management as per the Ball Holder Lactic acidosis -Improved -Patient on normal saline infusion -Bicarbonate infusion held due to alkalosis on the ABG -Nephrology following Metabolic alkalosis -Likely secondary to bicarbonate infusion -Held for now NAN -Significantly improved -Continue with fluid resuscitation -Continue to monitor BMP with nephrology following Abnormal LFTs -Likely due to poor perfusion of the liver -Continue to monitor for now Hyponatremia -Gradually improving with IV fluids -Continue to monitor Hyperglycemia -A1c 5.4 -Hyperglycemia likely secondary to acute stress -Continue to monitor for now Ventral hernia -Outpatient follow-up DVT prophylaxis -Heparin Anticipated discharge place: Home
[2020-09-15] MEDS: FLUCONAZOLE IN NACL,ISO-OSM 200 MG in SALINE 1 100ML.BAG IVPB SCH (11:59)
[2020-09-15 12:00] LABS: Glucose,Whole Blood 180 mg/dL (75-99)
--- NOTE | 2020-09-15 13:55 | PN ---
PROGRESS NOTE PULMONARY/CRITICAL CARE PROGRESS NOTE: DATE OF SERVICE: 09/14/2020 74-year-old gentleman who was admitted back on September 08. He was admitted with a diagnosis of pneumonia, sepsis and third-degree heart block. He was found at home to have difficulty breathing. He was transported via EMS into the emergency room. Enroute, he had ventilation using the bag valve mask device. In the emergency room, he seemingly improved from the respiratory standpoint initially, but then worsened with an episode of flash pulmonary edema. The patient was also found to have heart block and for that reason, he was intubated and mechanically ventilated by the ER physician. He went to the catheterization laboratory and Dr. Edmonds, the budget assistant, placed a temporary transvenous pacemaker. He was extubated successfully on September 13. Currently, he is on O2 at 9 L by high-flow oxygen. He is getting saline at 40 mL an hour. He is on Azactam, Diflucan and Flagyl antibiotics. No plans for permanent pacemaker until the patient's infection clears. PHYSICAL EXAMINATION: VITAL SIGNS: Current vital signs are reviewed. Temperature is 98.4, heart rate 80, respiratory rate 24, blood pressure 110/66, mean 80, saturations are 89-91% on the 9 L. Appears mildly tachypneic and dyspneic. HEENT: Examination is grossly unremarkable. NECK: Supple. Full range of motion. No adenopathy. Neck veins are flat. CARDIOVASCULAR: Examination reveals a regular rhythm and rate. Heart rate 80 beats per minute. S1, S2 normal. Heart sounds are distant. LUNGS: Reveal diffuse coarse rhonchi. There are some bibasilar crackles. No wheezes. Breath sounds equal. ABDOMEN: Soft. EXTREMITIES are intact. No cyanosis, clubbing, or edema. SKIN: Without rash. NEUROLOGIC: Examination is brief but nonfocal. LABS: Reviewed. White count 23.2, hemoglobin 11.4, hematocrit 35.2, platelet count normal. Sodium 139, potassium 4, chloride 111, CO2 26, anion gap is 2. BUN and creatinine were 34 and 0.96. N-terminal proBNP is 9940. Microbiology is all negative thus far. This includes a bronch wash done on September 11. His most recent chest x-ray on September 15 shows bilateral infiltrates as well as left- sided pleural effusion. This could be secondary to fluid overload and/or pneumonia, or both. CURRENT MEDICATIONS: Reviewed. The patient is on Azactam, Diflucan, Lasix, heparin, insulin, DuoNeb, levothyroxine, magnesium replacement, Solu-Medrol, Flagyl, and potassium replacement. ASSESSMENT: 1. Acute hypoxemic respiratory failure, likely secondary to pneumonia, complicated by fluid overload, and third-degree heart block, with intubation for navid respiratory failure on September 08 and successful extubation from mechanical ventilation on September 13, 2020. 2. Third-degree heart block, status post temporary transvenous pacemaker. 3. Severe metabolic acidosis, resolved. 4. Lactic acidemia, resolved. 5. Rule out ischemic cardiac disease. 6. Hyponatremia, improved. 7. Acute kidney injury, likely secondary to acute tubular necrosis. 8. Shock liver. 9. Hyperlipidemia. 10.Hypothyroidism. PLAN: Currently, the patient will get Solu-Medrol and updrafts. We will give the patient Solu-Medrol 40 mg q.6 and DuoNeb q.i.d. and p.r.n. He was started on daily Lasix per Cardiology. I think that is a good idea. N-terminal proBNP was elevated. The patient is quite confused and somewhat tachypneic. I would not be surprised if he ends up on BiPAP or AIRVO later today. We will continue to follow. Prognosis is guarded. MMODL / IJN: [id number] /
[2020-09-15 18:13] LABS: Glucose,Whole Blood 222 mg/dL (75-99)
--- NOTE | 2020-09-15 21:56 | PN ---
PROGRESS NOTE DATE OF SERVICE: 09/15/2020 REASON FOR FOLLOW UP: Aspiration pneumonia with multi-drug allergies. INTERVAL COURSE: The patient is currently afebrile. Patient is hemodynamically stable. The patient is slightly confused per the nursing staff. Oral intake remains to be minimal because of high risk of aspiration. No vomiting or diarrhea has been reported. The patient ( ). PHYSICAL EXAMINATION: Blood pressure 107/76, pulse 80, temperature 98, he is 90% on 1 L nasal cannula. General description is an elderly male lying in bed in no distress. Respiratory system: Unlabored breathing, some coarse breath sounds at the base. No wheeze. HEART: S1, S2. Regular rate and rhythm. ABDOMEN: Soft, no tenderness. LABS: White count up to 23,000. Chest x-ray showed improved aeration, ( ) IMPRESSION/PLAN: Patient admitted lower lung pneumonia with concern for possible aspiration. The patient did have a PENICILLIN allergy. Has been on Azactam and Flagyl, to continue. Monitor clinical course closely, continue supportive care. MMODL / IJN: [id number] /
[2020-09-16] MEDS: AZTREONAM 2 GM in SODIUM CHLORIDE 0.9% 100 ML IVPB SCH ×3 (00:13→16:36)
[2020-09-16] MEDS: INSULIN ASPART (NovoLOG) 100 UNIT/ML VIAL SQ SCH ×4 (00:19→18:02)
[2020-09-16 00:20] LABS: Glucose,Whole Blood 130 mg/dL (75-99)
[2020-09-16] MEDS: HEPARIN SODIUM,PORCINE 5,000 UNIT/ML 1 ML VIAL SQ SCH ×3 (00:22→16:37)
[2020-09-16] MEDS: methylPREDNISolone SOD SUCCI 40 MG/ML 1 ML VIAL IV SCH ×2 (00:22→06:19)
[2020-09-16 04:32] LABS: HGB 11.9 gm/dL (13.0-17.5); Hypochromasia Slight; MCH 31.7 pg (25.0-35.0); MCHC 32.3 g/dL (31.0-37.0); MCV 98.3 fL (80.0-100.0); Mean Platelet Volume 8.8; Platelet Count 355 k/uL (150-450); RBC 3.76 m/uL (4.30-5.90); RDW 14.3 % (11.5-15.5); WBC 26.7 k/uL (3.8-10.6)
[2020-09-16 04:46] LABS: ALT 49 U/L (4-49); AST 48 U/L (17-59); African American GFR (CKD) >90 (>60 ml/min/1.73 sqM); Albumin 2.6 g/dL (3.5-5.0); Alkaline Phosphatase 200 U/L (38-126); Anion Gap 3 mmol/L; Blood Urea Nitrogen 40 mg/dL (9-20); Calcium 8.5 mg/dL (8.4-10.2); Carbon Dioxide 25 mmol/L (22-30); Chloride 113 mmol/L (98-107); Glucose 149 mg/dL (74-99); Magnesium 2.2 mg/dL (1.6-2.3); Non-African American GFR(CKD) 85 (>60 ml/min/1.73 sqM); Potassium 3.5 mmol/L (3.5-5.1); Sodium 141 mmol/L (137-145); Total Bilirubin 0.6 mg/dL (0.2-1.3); Total Protein 5.4 g/dL (6.3-8.2)
[2020-09-16 05:07] LABS: Lymphocytes # (M) 1.34 k/uL (1.0-4.8); Monocytes # (M) 1.87 k/uL (0-1.0); Myelocytes # (M) 1.87 k/uL (0); Myelocytes % 7 %; Neutrophils # (M) 21.89 k/uL (1.3-7.7); Neutrophils % (M) 82 %; Nucleated Red Blood Cells 0 /100 WBC (0-0); Polychromasia Present; Total Cells Counted 200
[2020-09-16] MEDS: POTASSIUM CHLORIDE 20 MEQ in WATER FOR INJECTION 1 100ML.BAG IVPB SCH ×2 (05:51→08:21)
[2020-09-16] MEDS: LEVOTHYROXINE 112 MCG TAB PO SCH (06:19)
[2020-09-16 06:22] LABS: Glucose,Whole Blood 160 mg/dL (75-99)
[2020-09-16] MEDS: metroNIDAZOLE-NS PMX 500 MG in SALINE 1 100ML.BAG IVPB SCH ×2 (06:59→16:36)
[2020-09-16] MEDS: IPRATROPIUM-ALBUTEROL 3 ML NEB INHALATION SCH ×4 (07:12→20:18)
--- NOTE | 2020-09-16 07:19 | XR ---
EXAMINATION TYPE: XR chest 1V portable DATE OF EXAM: 09/16/2020 CLINICAL HISTORY: Difficulty breathing progress study. TECHNIQUE: Single AP portable semiupright view of the chest is obtained. COMPARISON: Chest x-ray from one day earlier and older studies FINDINGS: Stable left internal jugular central venous catheter. Stable right internal jugular pacema ker lead terminating in right heart. Cardiac silhouette size stable and within normal limits with atherosclerotic change in the aortic kno b. Persistent multifocal left greater than right opacities with reticulonodular component. Multileve l spurring in thoracic spine redemonstrated. IMPRESSION: Stable left greater than right multifocal acute infiltrates and/or edema. No significant change from most recent x-ray.
[2020-09-16 08:03] LABS: ABG Base Excess -2.6 mmol/L; ABG HCO3 22 mmol/L (21-25); ABG Oxygen Saturation 91.5 % (94-97); ABG PCO2 34 mmHg (35-45); ABG PH 7.41 (7.35-7.45); ABG PO2 60 mmHg (83-108); ABG TCO2 23 mmol/L (19-24)
[2020-09-16] MEDS: FUROSEMIDE 10 MG/ML 2 ML VIAL IV SCH (08:22)
--- NOTE | 2020-09-16 08:42 | P.PN ---
Subjective Progress Note Date: 09/16/20 Principal diagnosis: Complete heart block This is a 74-year-old gentleman with multiple comorbid conditions was admitted to the hospital with pneumonia and sepsis and we involved in his care because of complete heart block requiring temporary pacemaker. The patient was seen today August 162020. Unfortunately he continues to be confused. Hemodynamically he continues to require 100% pacing. The blood pressure has been within normal limits and he is not requiring any vasopressors. The chest x-ray continues to show findings consistent was multilobe infiltrate with a component of fluid overload. Yesterday he was started on Lasix IV 20 mg daily and I'm going to increase today to 40 mg IV twice a day. We'll continue monitor his kidney function as well as electrolytes. Also yesterday the NT proBNP was to be elevated. Objective - Vital Signs Vital signs: Vital Signs Temp 97.6 F 09/16/20 08:00 Pulse 80 09/16/20 08:00 Resp 38 H 09/16/20 08:00 BP 131/74 09/16/20 08:00 Pulse Ox 91 L 09/16/20 08:00 Intake & Output 09/15/20 09/16/20 09/16/20 18:59 06:59 18:59 Intake Total 1396 716.6 186 Output Total 1115 601 75 Balance 281 115.6 111 Weight 87.7 kg Intake: IV 816 716.6 186 0.9 NACL 480 480 80 Aztreonam 2 gm In Sodium 200 100.6 Chloride 0.9% 100 ml @ 33 .3 mls/hr IVPB Q8HR [facility] Rx#:[id number] Fluconazole in NaCl,Iso- 100 Osm 200 mg In Saline 1 100ml.bag @ 100 mls/hr IVPB DAILY@1200 [facility] Rx#: [id number] Potassium 100 metroNIDAZOLE-NS PMX 500 100 mg In Saline 1 100ml.bag @ 100 mls/hr IVPB Q8H [facility] Rx#:[id number] pressure bag 36 36 6 Intake, IV Titration 100 Amount Magnesium Sulfate-D5w Pmx 100 1 gm In Dextrose/Water 1 100ml.bag @ 100 mls/hr IVPB Q1H [facility] Rx#: [id number] Oral 480 Output: Urine 1115 601 75 Other: Voiding Method Indwelling Catheter Indwelling Catheter Indwelling Catheter # Bowel Movements 0 0 ABP, PAP, CO, CI - Last Documented Arterial Blood Pressure 152/152 - Constitutional General appearance: Present: no acute distress - Respiratory Respiratory: bilateral: rales - Cardiovascular Rhythm: regular Heart sounds: normal: S1, S2 - Labs CBC & Chem 7: 09/16/20 04:20 09/16/20 04:20 Labs: Abnormal Lab Results - Last 24 Hours (Table) 09/15/20 09/15/20 09/16/20 Range/Units 11:58 18:11 00:18 WBC (3.8-10.6) k/uL RBC (4.30-5.90) m/uL Hgb (13.0-17.5) gm/dL Hct (39.0-53.0) % Neutrophils # (Manual) (1.3-7.7) k/uL Monocytes # (Manual) (0-1.0) k/uL Myelocytes # (Manual) (0) k/uL ABG pCO2 (35-45) mmHg ABG pO2 (83-108) mmHg ABG O2 Saturation (94-97) % Chloride (98-107) mmol/L BUN (9-20) mg/dL Glucose (74-99) mg/dL POC Glucose (mg/dL) 180 H 222 H 130 H (75-99) mg/dL Alkaline Phosphatase (38-126) U/L Total Protein (6.3-8.2) g/dL Albumin (3.5-5.0) g/dL 09/16/20 09/16/20 09/16/20 Range/Units 04:20 04:20 06:10 WBC 26.7 H (3.8-10.6) k/uL RBC 3.76 L (4.30-5.90) m/uL Hgb 11.9 L (13.0-17.5) gm/dL Hct 37.0 L (39.0-53.0) % Neutrophils # (Manual) 21.89 H (1.3-7.7) k/uL Monocytes # (Manual) 1.87 H (0-1.0) k/uL Myelocytes # (Manual) 1.87 H (0) k/uL ABG pCO2 (35-45) mmHg ABG pO2 (83-108) mmHg ABG O2 Saturation (94-97) % Chloride 113 H (98-107) mmol/L BUN 40 H (9-20) mg/dL Glucose 149 H (74-99) mg/dL POC Glucose (mg/dL) 160 H (75-99) mg/dL Alkaline Phosphatase 200 H (38-126) U/L Total Protein 5.4 L (6.3-8.2) g/dL Albumin 2.6 L (3.5-5.0) g/dL 09/16/20 Range/Units 07:55 WBC (3.8-10.6) k/uL RBC (4.30-5.90) m/uL Hgb (13.0-17.5) gm/dL Hct (39.0-53.0) % Neutrophils # (Manual) (1.3-7.7) k/uL Monocytes # (Manual) (0-1.0) k/uL Myelocytes # (Manual) (0) k/uL ABG pCO2 34 L (35-45) mmHg ABG pO2 60 L (83-108) mmHg ABG O2 Saturation 91.5 L (94-97) % Chloride (98-107) mmol/L BUN (9-20) mg/dL Glucose (74-99) mg/dL POC Glucose (mg/dL) (75-99) mg/dL Alkaline Phosphatase (38-126) U/L Total Protein (6.3-8.2) g/dL Albumin (3.5-5.0) g/dL Assessment and Plan Assessment: Assessment #1 acute hypoxic respiratory failure #2 pneumonia/sepsis #3 complete heart block #4 fluid overload Plan #1 continue the current medical regimen #2 increase the dose of Lasix IV #3 continue monitoring the kidney function and electrolytes #4 the critical care team is on the case as well
[2020-09-16] MEDS ORDERED: FUROSEMIDE 10 MG/ML 2 ML VIAL IV ONE (09:00)
--- NOTE | 2020-09-16 09:42 | P.PN ---
Subjective Progress Note Date: 09/16/20 Principal diagnosis: Respiratory failure Patient has been very confused and disoriented. He wants to go home. Despite explaining to him multiple times that he can't he is insisting on it. Patient also trying to get out of bed. Objective - Vital Signs Vital signs: Vital Signs Temp 97.6 F 09/16/20 08:00 Pulse 80 09/16/20 09:00 Resp 40 H 09/16/20 09:00 BP 109/81 09/16/20 09:00 Pulse Ox 89 L 09/16/20 09:00 Intake & Output 09/15/20 09/16/20 09/16/20 18:59 06:59 18:59 Intake Total 1396 716.6 549 Output Total 1115 601 115 Balance 281 115.6 434 Weight 87.7 kg Intake: IV 816 716.6 429 0.9 NACL 480 480 120 Aztreonam 2 gm In Sodium 200 100.6 100 Chloride 0.9% 100 ml @ 33 .3 mls/hr IVPB Q8HR [facility] Rx#:[id number] Fluconazole in NaCl,Iso- 100 Osm 200 mg In Saline 1 100ml.bag @ 100 mls/hr IVPB DAILY@1200 [facility] Rx#: [id number] Potassium 200 metroNIDAZOLE-NS PMX 500 100 mg In Saline 1 100ml.bag @ 100 mls/hr IVPB Q8H [facility] Rx#:[id number] pressure bag 36 36 9 Intake, IV Titration 100 Amount Magnesium Sulfate-D5w Pmx 100 1 gm In Dextrose/Water 1 100ml.bag @ 100 mls/hr IVPB Q1H [facility] Rx#: [id number] Oral 480 120 Output: Urine 1115 601 115 Other: Voiding Method Indwelling Catheter Indwelling Catheter Indwelling Catheter # Bowel Movements 0 1 ABP, PAP, CO, CI - Last Documented Arterial Blood Pressure 120/61 - Exam Gen: No acute distress. HEENT: normocephalic, atraumatic, good hearing acuity, moist mucous membranes Resp: Coarse breath sounds bilaterally CVS: RRR, S1 and S2 normal. good distal perfusion x 4, no appreciable murmurs GI: soft, NTTP, ND. Large ventral hernia. : no SPT, no CVAT, torre catheter is present MSK: 1+ pitting edema, no clubbing Neuro: non-focal, moving all extremities Psych: confused. Disoriented. - Labs CBC & Chem 7: 09/16/20 04:20 09/16/20 04:20 Labs: Abnormal Lab Results - Last 24 Hours (Table) 09/15/20 09/15/20 09/16/20 Range/Units 11:58 18:11 00:18 WBC (3.8-10.6) k/uL RBC (4.30-5.90) m/uL Hgb (13.0-17.5) gm/dL Hct (39.0-53.0) % Neutrophils # (Manual) (1.3-7.7) k/uL Monocytes # (Manual) (0-1.0) k/uL Myelocytes # (Manual) (0) k/uL ABG pCO2 (35-45) mmHg ABG pO2 (83-108) mmHg ABG O2 Saturation (94-97) % Chloride (98-107) mmol/L BUN (9-20) mg/dL Glucose (74-99) mg/dL POC Glucose (mg/dL) 180 H 222 H 130 H (75-99) mg/dL Alkaline Phosphatase (38-126) U/L Total Protein (6.3-8.2) g/dL Albumin (3.5-5.0) g/dL 09/16/20 09/16/20 09/16/20 Range/Units 04:20 04:20 06:10 WBC 26.7 H (3.8-10.6) k/uL RBC 3.76 L (4.30-5.90) m/uL Hgb 11.9 L (13.0-17.5) gm/dL Hct 37.0 L (39.0-53.0) % Neutrophils # (Manual) 21.89 H (1.3-7.7) k/uL Monocytes # (Manual) 1.87 H (0-1.0) k/uL Myelocytes # (Manual) 1.87 H (0) k/uL ABG pCO2 (35-45) mmHg ABG pO2 (83-108) mmHg ABG O2 Saturation (94-97) % Chloride 113 H (98-107) mmol/L BUN 40 H (9-20) mg/dL Glucose 149 H (74-99) mg/dL POC Glucose (mg/dL) 160 H (75-99) mg/dL Alkaline Phosphatase 200 H (38-126) U/L Total Protein 5.4 L (6.3-8.2) g/dL Albumin 2.6 L (3.5-5.0) g/dL 09/16/20 Range/Units 07:55 WBC (3.8-10.6) k/uL RBC (4.30-5.90) m/uL Hgb (13.0-17.5) gm/dL Hct (39.0-53.0) % Neutrophils # (Manual) (1.3-7.7) k/uL Monocytes # (Manual) (0-1.0) k/uL Myelocytes # (Manual) (0) k/uL ABG pCO2 34 L (35-45) mmHg ABG pO2 60 L (83-108) mmHg ABG O2 Saturation 91.5 L (94-97) % Chloride (98-107) mmol/L BUN (9-20) mg/dL Glucose (74-99) mg/dL POC Glucose (mg/dL) (75-99) mg/dL Alkaline Phosphatase (38-126) U/L Total Protein (6.3-8.2) g/dL Albumin (3.5-5.0) g/dL Assessment and Plan Plan: Unresponsiveness, suspected secondary to bradycardia Acute hypoxic respiratory failure, on mechanical ventilation Community-acquired pneumonia versus aspiration pneumonia -Status post transvenous pacer for third-degree AV block with bradycardia on 09/08/20 -Status post bronch with BAL on 09/11,with no growth thus far, fungal cx pending -Infectious disease following: Patient on aztreonam, Flagyl, and Fluconazole -Follow-up cultures = NGTD -Echocardiogram unremarkable with LVEF 55-60% and normal LV wall thickness -COVID 19 PCR negative -Vent management as per the Construction Secretary Acute delirium Quite environment, reorient frequently Decrease steroid dose to twice daily. Fluid overload Lasix increased to 40mg IV bid by cardiology. Third-degree heart block -Cardiology recommendations. Continue temporary pacer, once infection improved will patient will need permanent pacemaker Elevated troponin - due to hypoxemia - not consistent with acute coronary syndrome. Hypothyroidism -Continue Synthroid Lactic acidosis, resolved Hyponatremia, resolved Hyperglycemia without known history of diabetes, resolved Acute kidney injury, resolved DVT prophylaxis: heparin Discussed with: patient, nursing Anticipated discharge: 4-5 days, Anticipated discharge place: likely will need rehab A total of 25minutes was spent on the care of this complex patient more than 50% of the time was spent in counseling and care coordination.
[2020-09-16] MEDS: HALOPERIDOL LACTATE 5 MG/ML 1 ML VIAL IVP PRN ×2 (10:00→16:36)
[2020-09-16 11:28] LABS: Glucose,Whole Blood 217 mg/dL (75-99)
[2020-09-16] MEDS: FLUCONAZOLE IN NACL,ISO-OSM 200 MG in SALINE 1 100ML.BAG IVPB SCH (12:13)
--- NOTE | 2020-09-16 12:17 | PN ---
PROGRESS NOTE PULMONARY/CRITICAL CARE PROGRESS NOTE: DATE OF SERVICE: 09/16/2020 This is a 74-year-old gentleman who was admitted back on September 08. He was admitted with a diagnosis of pneumonia, sepsis, and third-degree heart block. He was initially found at home having difficulty breathing. He was transported via EMS into the emergency room. En route, the patient was being ventilated with a bag-valve mask device. In the emergency room, he seemingly improved initially, subsequent to that, he developed flash pulmonary edema. The patient also developed heart block and required a temporary transvenous pacemaker, as well as intubation and mechanical ventilation. Dr. Edmonds, the electrical manager, put the pacemaker in. The patient was successfully extubated on September 13. Currently, he is on high-flow O2 at 11 L. He is getting saline at 40 mL an hour. He is quite confused according to the nurse. Today, he will get some Haldol 40 mg IV push. Arterial blood gas was done. It showed a pO2 of 60, pCO2 of 34, and pH is 7.41. I told Respiratory to attempt to use a BiPAP on this patient with settings of 12/5 and whatever FiO2 achieved the saturation was adequate. In the end, the patient may require re-intubation. PHYSICAL EXAMINATION: VITAL SIGNS: Current vital signs are reviewed. Temperature 97.6, heart rate 80, respiratory rate in the high 20s, blood pressure 109/81, mean 90, saturations are 90% or so. GENERAL: Appears confused. Mildly tachypneic. No navid respiratory distress. No audible wheezing. HEENT: Examination is grossly unremarkable. High-flow nasal cannula noted. NECK: Supple. Full range of motion. No adenopathy. Neck veins are flat. CARDIOVASCULAR: Examination reveals regular rhythm and rate. Heart rate 80. Heart sounds are distant. LUNGS: Reveal diffuse coarse rhonchi and crackles. Breath sounds equal. ABDOMEN: Soft. EXTREMITIES are intact. Mild edema. SKIN: Without rash. NEUROLOGIC: Examination is nonfocal say for his confusion. LABS: Reviewed. White count 26.7, hemoglobin 11.9, hematocrit 37.0, platelet count 355,000. Blood gases show pO2 of 60, pCO2 34, and pH of 7.41. These blood gases are consistent with a mixed acid-base disturbance including a combined respiratory alkalosis and mild metabolic acidosis. Sodium is 141, potassium 3.5, chloride is 113, CO2 25, anion gap is 3. BUN and creatinine were 40 and 0.85. Alkaline phosphatase was 200. Total protein 5.4, albumin 2.6. Current microbiology is negative or pending. A chest x-ray shows left greater than right multifocal acute infiltrates. They may be slightly worse compared to the prior two x-rays. CURRENT MEDICATIONS: Reviewed. The patient is on Azactam, fluconazole, Lasix 40 mg twice a day, Haldol, heparin, insulin, DuoNeb, levothyroxine, magnesium replacement, Solu-Medrol, Flagyl, and potassium replacement. ASSESSMENT: 1. Acute hypoxemic respiratory failure likely secondary to pneumonia complicated by fluid overload and third-degree heart block, with intubation for navid respiratory failure on September 08 and successful extubation from mechanical ventilation on September 13, 2020. 2. Third-degree heart block, status post temporary transvenous pacemaker. 3. Severe metabolic acidosis, resolved. 4. Lactic acidemia, resolved. 5. Rule out ischemic cardiac disease. 6. Hyponatremia, improved. 7. Acute kidney injury, likely secondary to acute tubular necrosis, improved. 8. Shock liver. 9. Hyperlipidemia. 10.Hypothyroidism. PLAN: The patient's oxygenation seems to be getting a bit worse. His blood gases showed a pO2 of 60, pCO2 of 34, and a pH 7.41. We will switch the patient to BiPAP at 12/5. The patient will get a dose of Haldol to see how he responds to it. If it seems to improve his overall mental status and his confusion and disorientation, we can continue it. Additional recommendations and suggestions are forthcoming. Prognosis is guarded. He may also end back up on the mechanical ventilator. Critical care time greater than 30 minute. MMODL / IJN: [id number] /
[2020-09-16 17:26] LABS: Glucose,Whole Blood 126 mg/dL (75-99)
[2020-09-16 19:58] LABS: Glucose,Whole Blood 160 mg/dL (75-99)
[2020-09-16] MEDS: FUROSEMIDE 10 MG/ML 4 ML VIAL IV SCH (20:15)
[2020-09-16] MEDS ORDERED: methylPREDNISolone SOD SUCCI 40 MG/ML 1 ML VIAL IV SCH (21:00)
--- NOTE | 2020-09-16 22:05 | PN ---
PROGRESS NOTE DATE OF SERVICE: 09/16/2020 REASON FOR FOLLOWUP: Aspiration pneumonia and persistent elevated white count. INTERVAL HISTORY: The patient is currently afebrile. The patient is slightly lethargic, is currently on BiPAP. Denies having any chest pain. Minimal cough. No abdominal pain. No diarrhea. EXAMINATION: Blood pressure 108/55 with a pulse of 80. Temperature 97.7. He is 93% on BiPAP. General description is an elderly male lying in bed in no distress. Respiratory system: Unlabored breathing with decreased breath sounds in the bases. No wheeze. Heart S1, S2. Regular rate and rhythm. ABDOMEN: Soft, no tenderness. LABS: Hemoglobin 11.1, white count 6.7, BUN of 14, creatinine 0.5. DIAGNOSTIC IMPRESSION AND PLAN: Patient with acute respiratory failure in this patient who did have a component of likely aspiration pneumonia, covered with Azactam and Flagyl BECAUSE OF MULTIPLE ANTIBIOTIC ALLERGIES. Worsening white count more likely due to steroid use, which has been discontinued. Will expect the white count to start coming down. No further workup will be done. Continue supportive care. MMODL / IJN: [id number] /
[2020-09-17] MEDS: HALOPERIDOL LACTATE 5 MG/ML 1 ML VIAL IVP PRN ×3 (00:04→22:42)
[2020-09-17] MEDS: metroNIDAZOLE-NS PMX 500 MG in SALINE 1 100ML.BAG IVPB SCH ×4 (00:04→22:22)
[2020-09-17] MEDS: HEPARIN SODIUM,PORCINE 5,000 UNIT/ML 1 ML VIAL SQ SCH ×3 (00:05→16:22)
[2020-09-17 00:08] LABS: Glucose,Whole Blood 131 mg/dL (75-99)
[2020-09-17] MEDS: INSULIN ASPART (NovoLOG) 100 UNIT/ML VIAL SQ SCH ×4 (00:12→19:07)
[2020-09-17] MEDS: AZTREONAM 2 GM in SODIUM CHLORIDE 0.9% 100 ML IVPB SCH ×3 (01:13→16:22)
[2020-09-17 04:00] LABS: Basophils # (A) 0.2 k/uL (0-0.2); Basophils % (A) 1 %; Eosinophils % (A) 0 %; HCT 33.3 % (39.0-53.0); HGB 10.9 gm/dL (13.0-17.5); Hypochromasia Slight; Lymphocytes # (A) 0.8 k/uL (1.0-4.8); Lymphocytes % (A) 4 %; MCH 31.8 pg (25.0-35.0); MCHC 32.6 g/dL (31.0-37.0); MCV 97.4 fL (80.0-100.0); Mean Platelet Volume 9.3; Monocytes # (A) 1.4 k/uL (0-1.0); Monocytes % (A) 6 %; Neutrophils # (A) 20.4 k/uL (1.3-7.7); Neutrophils % (A) 87 %; Platelet Count 381 k/uL (150-450); RBC 3.42 m/uL (4.30-5.90); RDW 14.4 % (11.5-15.5); WBC 23.4 k/uL (3.8-10.6)
[2020-09-17 04:24] LABS: ALT 42 U/L (4-49); AST 44 U/L (17-59); African American GFR (CKD) >90 (>60 ml/min/1.73 sqM); Albumin 2.5 g/dL (3.5-5.0); Alkaline Phosphatase 156 U/L (38-126); Anion Gap 3 mmol/L; Blood Urea Nitrogen 46 mg/dL (9-20); Calcium 8.4 mg/dL (8.4-10.2); Carbon Dioxide 27 mmol/L (22-30); Chloride 115 mmol/L (98-107); Glucose 137 mg/dL (74-99); Magnesium 2.2 mg/dL (1.6-2.3); Non-African American GFR(CKD) 85 (>60 ml/min/1.73 sqM); Potassium 3.4 mmol/L (3.5-5.1); Sodium 145 mmol/L (137-145); Total Bilirubin 0.6 mg/dL (0.2-1.3); Total Protein 5.2 g/dL (6.3-8.2)
[2020-09-17] MEDS ORDERED: Potassium Replacement Protocol 1 EACH MISC MISCELLANE PRN (05:25)
[2020-09-17 05:43] LABS: Glucose,Whole Blood 135 mg/dL (75-99)
[2020-09-17] MEDS: LEVOTHYROXINE 112 MCG TAB PO SCH (06:06)
[2020-09-17] MEDS: POTASSIUM CHLORIDE 20 MEQ in WATER FOR INJECTION 1 100ML.BAG IVPB SCH ×2 (06:06→07:53)
--- NOTE | 2020-09-17 08:22 | PN ---
PROGRESS NOTE Mr. Sheehan is a 74-year-old male who presented to the emergency room with change in mental status and complete heart block on the 08 of September. He was evaluated by Dr. Edmonds at that time and underwent the placement of a temporary pacemaker. He had evidence of infectious process. At that time, he had an echocardiogram performed on presentation and revealed a preserved left ventricular systolic function. Patient has no history of cardiac disease in the past. He remains confused. According to the nursing staff, he slept better yesterday. He was diagnosed with pneumonia, initially was intubated and subsequently extubated. We are holding on permanent pacemaker until his infectious process is improved. He is on no vasopressor. He continues to be at this time on furosemide 40 mg IV q.12 hours in addition to his antibiotics. As an outpatient patient, he was on spironolactone and zinc. PHYSICAL EXAMINATION: His blood pressure is 130/60 with the heart rate in the 80s. LUNGS: Clear. HEART: Regular rate and rhythm. S1, S2. No S3 with a systolic murmur at the base. No diastolic murmur. ABDOMEN: Soft. Nontender. Positive bowel sounds. EXTREMITIES: +1 edema. LAB DATA: Lab data revealed BUN and creatinine 46 and 0.85, potassium 3.4, hemoglobin of 10.9, white blood cells 23.4. The patient continues to be in complete heart block and pacemaker dependent. His chest x-ray shows bilateral infiltrate. IMPRESSION: 1. Pneumonia with respiratory failure. 2. Complete heart block, status post temporary pacemaker. 3. Renal failure, improving. 4. Confusion. RECOMMENDATION: From the cardiac standpoint, will follow his renal function. Once he is felt to be treated from the infectious process, I will discuss it with the Critical Care Service and if he is stable, we will proceed with permanent pacemaker implantation. MMODL / IJN: [id number] /
[2020-09-17] MEDS: FUROSEMIDE 10 MG/ML 4 ML VIAL IV SCH ×2 (08:38→19:44)
--- NOTE | 2020-09-17 08:46 | P.PN ---
Subjective Progress Note Date: 09/17/20 Principal diagnosis: Respiratory failure Patient had to be placed on BiPAP yesterday due to increased work of breathing. According to nursing staff patient slept well last night. This was the first night he gets a good sleep. This morning he seems comfortable, was able to ans wer questions coherently unlike yesterday. He denied having significant shortness of breath or pain. Objective - Vital Signs Vital signs: Vital Signs Temp 97.8 F 09/17/20 04:00 Pulse 80 09/17/20 07:00 Resp 28 H 09/17/20 07:00 BP 109/81 09/16/20 10:00 Pulse Ox 97 09/17/20 07:00 Intake & Output 09/16/20 09/17/20 09/17/20 18:59 06:59 18:59 Intake Total 1313 673 193 Output Total 715 1230 60 Balance 598 -557 133 Weight 87.1 kg Intake: IV 1073 673 93 0.9 NACL 440 440 40 Aztreonam 2 gm In Sodium 200 100 Chloride 0.9% 100 ml @ 33 .3 mls/hr IVPB Q8HR [facility] Rx#:[id number] Fluconazole in NaCl,Iso- 100 Osm 200 mg In Saline 1 100ml.bag @ 100 mls/hr IVPB DAILY@1200 [facility] Rx#: [id number] Potassium 200 50 metroNIDAZOLE-NS PMX 500 100 100 mg In Saline 1 100ml.bag @ 100 mls/hr IVPB Q8H [facility] Rx#:[id number] pressure bag 33 33 3 Oral 240 100 Output: Urine 715 1230 60 Other: Voiding Method Indwelling Catheter Indwelling Catheter # Bowel Movements 1 ABP, PAP, CO, CI - Last Documented Arterial Blood Pressure 130/64 - Exam Gen: No acute distress. BiPAP in place. HEENT: normocephalic, atraumatic, good hearing acuity, moist mucous membranes Resp: Coarse breath sounds bilaterally CVS: RRR, S1 and S2 normal. good distal perfusion x 4, no appreciable murmurs GI: soft, NTTP, ND. Large ventral hernia. : no SPT, no CVAT, torre catheter is present MSK: 1+ pitting edema, no clubbing Neuro: non-focal, moving all extremities Psych: confused. Disoriented. - Labs CBC & Chem 7: 09/17/20 03:50 01/04/21 03:50 Labs: Abnormal Lab Results - Last 24 Hours (Table) 09/16/20 09/16/20 09/16/20 Range/Units 11:27 17:25 19:54 WBC (3.8-10.6) k/uL RBC (4.30-5.90) m/uL Hgb (13.0-17.5) gm/dL Hct (39.0-53.0) % Neutrophils # (1.3-7.7) k/uL Lymphocytes # (1.0-4.8) k/uL Monocytes # (0-1.0) k/uL Potassium (3.5-5.1) mmol/L Chloride (98-107) mmol/L BUN (9-20) mg/dL Glucose (74-99) mg/dL POC Glucose (mg/dL) 217 H 126 H 160 H (75-99) mg/dL Alkaline Phosphatase (38-126) U/L Total Protein (6.3-8.2) g/dL Albumin (3.5-5.0) g/dL 09/17/20 09/17/20 09/17/20 Range/Units 00:07 03:50 03:50 WBC 23.4 H (3.8-10.6) k/uL RBC 3.42 L (4.30-5.90) m/uL Hgb 10.9 L (13.0-17.5) gm/dL Hct 33.3 L (39.0-53.0) % Neutrophils # 20.4 H (1.3-7.7) k/uL Lymphocytes # 0.8 L (1.0-4.8) k/uL Monocytes # 1.4 H (0-1.0) k/uL Potassium 3.4 L (3.5-5.1) mmol/L Chloride 115 H (98-107) mmol/L BUN 46 H (9-20) mg/dL Glucose 137 H (74-99) mg/dL POC Glucose (mg/dL) 131 H (75-99) mg/dL Alkaline Phosphatase 156 H (38-126) U/L Total Protein 5.2 L (6.3-8.2) g/dL Albumin 2.5 L (3.5-5.0) g/dL 09/17/20 Range/Units 05:40 WBC (3.8-10.6) k/uL RBC (4.30-5.90) m/uL Hgb (13.0-17.5) gm/dL Hct (39.0-53.0) % Neutrophils # (1.3-7.7) k/uL Lymphocytes # (1.0-4.8) k/uL Monocytes # (0-1.0) k/uL Potassium (3.5-5.1) mmol/L Chloride (98-107) mmol/L BUN (9-20) mg/dL Glucose (74-99) mg/dL POC Glucose (mg/dL) 135 H (75-99) mg/dL Alkaline Phosphatase (38-126) U/L Total Protein (6.3-8.2) g/dL Albumin (3.5-5.0) g/dL Assessment and Plan Plan: Unresponsiveness, suspected secondary to bradycardia Acute hypoxic respiratory failure, on mechanical ventilation Community-acquired pneumonia versus aspiration pneumonia -Status post transvenous pacer for third-degree AV block with bradycardia on 09/08/20, awaiting placement of permanent pacemaker by cardiology -Status post bronch with BAL on 09/11,with no growth, fungal cx pending -Infectious disease following: Patient on aztreonam, Flagyl, and Fluconazole -Follow-up cultures = NGTD -Echocardiogram unremarkable with LVEF 55-60% and normal LV wall thickness -COVID 19 PCR negative Acute delirium Quite environment, reorient frequently D/c steroids. Fluid overload Continue with lasix 40mg IV bid Third-degree heart block -Cardiology recommendations. Continue temporary pacer, once infection improved will patient will need permanent pacemaker Elevated troponin - due to hypoxemia - not consistent with acute coronary syndrome. Hypothyroidism -Continue Synthroid Lactic acidosis, resolved Hyponatremia, resolved Hyperglycemia without known history of diabetes, resolved Acute kidney injury, resolved I discussed with nursing staff today that it would be best to take patient off BiPAP today and try to ambulate him out of bed with physical therapy. DVT prophylaxis: heparin Discussed with: patient, nursing Anticipated discharge: 3 days, Anticipated discharge place: likely will need rehab A total of 25 minutes was spent on the care of this complex patient more than 50% of the time was spent in counseling and care coordination.
[2020-09-17] MEDS: IPRATROPIUM-ALBUTEROL 3 ML NEB INHALATION SCH ×4 (08:48→19:39)
--- NOTE | 2020-09-17 09:42 | XR ---
EXAMINATION TYPE: XR chest 1V portable DATE OF EXAM: 09/17/2020 COMPARISON: 09/16/2020 HISTORY: Shortness of breath TECHNIQUE: Single frontal view of the chest is obtained. FINDINGS: Cardiac leads are stable. Multifocal areas of consolidation stable. No pneumothorax. Small bilateral pleural effusions. Heart size normal. Atherosclerotic change aorta. Hypertrophic and degen erative change of the spine. IMPRESSION: Stable multifocal infiltrates
[2020-09-17 11:31] LABS: Glucose,Whole Blood 140 mg/dL (75-99)
[2020-09-17] MEDS: FLUCONAZOLE IN NACL,ISO-OSM 200 MG in SALINE 1 100ML.BAG IVPB SCH (11:33)
--- NOTE | 2020-09-17 13:18 | P.PN ---
Subjective Progress Note Date: 09/17/20 Principal diagnosis: Acute hypoxic respiratory failure secondary to pneumonia and fluid overload secondary to third-degree heart block. On 09/10/2020, the patient is being seen for a follow-up. The patient came in to the hospital yesterday and subsequently admitted to the intensive care unit because of difficulty breathing. At a time of arrival to the ED, the patient was discovered to be congestion heart failure and there was also concern for pneumonia/sepsis. Subsequently, the patient developed a third-degree AV block and required intubation mechanical ventilation. Cardiology was consulted. The patient was taken to the [facility] for placement of a temporary venous pacemaker. The patient was brought in back to the intensive care unit intubated on a mechanical ventilator. The patient was sedated and paralyzed with a combination of propofol an endovascular suspected and the patient was requiring pressors including norepinephrine infusion. The patient was also on a bicarb infusion with D5 and 150 mEq of sodium bicarbonate running at 150 mL an hour. IV access was established. The patient was covered with a combination of Azactam, Flagyl and vancomycin as broad-spectrum antibiotic coverage. Chest x-ray showed the possibility of a lower lobe pneumonia bilaterally. As such, the patient was treated for acute hypoxic respiratory failure for the above-mentioned reasons. The patient as mentioned was in a third-degree AV block and required a temporary transvenous pacemaker insertion. The patient was also in acute kidney injury related to above-mentioned comorbidities in addition to a shock liver. Note that the patient's also had a right-sided cardiac cath revealing normal pulmonary artery pressures in the pulmonary capillary wedge pressure was only 14 mmHg , and echocardiogram that was done showed a normal LV systolic function with an ejection fraction of 55-60%, RV was within normal, LAD was within normal limits, mild mitral regurgitation, moderate tricuspid regurgitation and the right posterior systolic pressure was estimated to be 28 mmHg. Noted the patient's cognitive testing came back negative. The white cell count was at 34 at time of admission and came up to 41. The patient had 24% bandemia. The initial blood gases was consistent with severe metabolic acidosis with a pH of 7.03 and a pCO2 of 44 and pO2 of 87. Subsequent blood gases showed improvement and acid base status. The patient was in acute kidney injury with a creatinine of 2.24 and this subsequently improved.. Lactic acid initially was at 6.5 down to 2.9. Troponin peaked at 0.16. ProBNP level was 14,300 and the patient's pro calcitonin level was 25.3. UA was negative. The patient currently has a left IJ triple-lumen catheter in place. He is currently intubated on a mechanical ventilator. He is an assist-control mode with tidal volume of 450, FiO2 of 60% with a PEEP of 15 and a rate of 26. Probable was running at 50 mcg/kg per minute. Nimbex is running at 1.5 mcg/kg per minute. Norepinephrine infusion is running at 0.06 g per kilograms per minute. She is living vital high protein at the rate of 20 mL an hour. The patient is afebrile this morning. The chest x-ray still showing diffuse but the pulmonary infiltrates perihilar and these infiltrates are quite dense.The white cell count is improved and is currently down to 17. The blood gases from today showed a pH of 7.57 with a pCO2 of 31 and pO2 162 as such the patient has developed a combination of respiratory and metabolic alkalosis the renal function is improved in the creatinine is normalized is down to 1.1. His adequate urine output. Lactic acid level is down to 2.4. Cultures are still all. His cardiac rhythm is currently paced at the rate of 60 with an underlying rhythm of third-degree AV block. On 09/11/2020, the patient remains intubated on a mechanical ventilator. This morning, he is on assist control mode at a rate of 26 with a tidal volume of 400 and FiO2 of 50% with a PEEP of 15. The blood gases from this morning showed a pH of 7.46 with a pCO2 of 38 and pO2 of 217. Nevertheless, the chest x-ray still showing bilateral perihilar pulmonary infiltrates with increased consolidation of the lung bases. We are still considering a bacterial pneumonia. The patient's pro calcitonin level was quite elevated and the patient had severe leukocytosis at time of admission. The COVID19 testing 2 came back negative. The patient was covered with a combination of vancomycin, Flagyl, and Azactam. The cultures are all negative. The patient is afebrile fo r now. As mentioned, the white cell count is improving. Meanwhile, his cardiac rhythm is still third-degree AV block is currently paced at the rate of 80 with a transvenous pacemaker through his right IJ. The patient is still on pressors and norepinephrine is running at 0.06 mcg/kg per minute. Urine output is in order of 50 mL an hour and the patient is receiving IV fluids in the form of normal saline today to 100 mL an hour. He is sedated with propofol at 50 mcg/kg per minute. I cell count is down to 14.4. Her lactic acid level was down to 1.6, LFTs are slightly elevated with AST of 137, ALT of 190, serum albumin is at 1.6 and ionized calcium is at 4.6. He is afebrile. He is receiving vital high protein for enteral nutrition today to 45 mL an hour. Patient was reevaluated today on 09/17/2020, patient remains in the ICU, he is being treated for pneumonia and sepsis. Remains on Diflucan, Azactam, and Flagyl. Patient is being treated for presumptive aspiration pneumonia and is also being treated for fluid overload which was felt to be related to his third- degree AV block requiring temporary pacemaker implantation. Patient is intermittently on BiPAP, with IPAP of 12 and EPAP of 5, and 40% FiO2, however he is presently on few liters nasal cannula and seems to be saturating in the mid 90s. Patient was intubated on 09/08 until 09/13. Still being followed by cardiology for potential permanent pacemaker implantation. Presently he is fully paced I his temporary pacemaker. Underwent a bronchoscopy on 09/11, it is nondiagnostic, no specific cultures have been noted. Chest x-ray continues to show bilateral, multifocal interstitial infiltrates basic metabolic profile is normal electrolytes are normal potassium is a bit low at 3.4. Continues to have leukocytosis with WBC count of 23.4 hemoglobin is 10.9. Renal profile is relatively unremarkable however BUN is elevated at 46 and creatinine is 0.85. Objective - Vital Signs Vital signs: Vital Signs Temp 97.8 F 09/17/20 04:00 Pulse 84 09/17/20 12:58 Resp 31 H 09/17/20 11:00 BP 109/81 09/16/20 10:00 Pulse Ox 95 09/17/20 11:00 Intake & Output 09/16/20 09/17/20 09/17/20 18:59 06:59 18:59 Intake Total 1313 673 643 Output Total 715 1230 700 Balance 598 -557 -57 Weight 87.1 kg Intake: IV 1073 673 293 0.9 NACL 440 440 40 Aztreonam 2 gm In Sodium 200 100 Chloride 0.9% 100 ml @ 33 .3 mls/hr IVPB Q8HR [facility] Rx#:[id number] Fluconazole in NaCl,Iso- 100 Osm 200 mg In Saline 1 100ml.bag @ 100 mls/hr IVPB DAILY@1200 [facility] Rx#: [id number] Potassium 200 150 metroNIDAZOLE-NS PMX 500 100 100 100 mg In Saline 1 100ml.bag @ 100 mls/hr IVPB Q8H [facility] Rx#:[id number] pressure bag 33 33 3 Oral 240 350 Output: Urine 715 1230 700 Other: Voiding Method Indwelling Catheter Indwelling Catheter Indwelling Catheter # Bowel Movements 1 ABP, PAP, CO, CI - Last Documented Arterial Blood Pressure 110/56 - Exam Gen: Revealed 74-year-old white male in no distress. HEENT: normocephalic, atraumatic, PERRLA, nonicteric. EOMI. Dry mucous membranes. Resp: Symmetrical chest expansion crackles at the bases. CVS: Normal S1 and S2, no S3 gallop. No murmur. GI: Soft nontender no megaly no rebound, large ventral hernia is noted. : Bae catheter is present otherwise negative. MSK: 1+ bipedal edema. Neuro: Alert and oriented 3 focal neurologic deficits. Psych: Slightly confused, but oriented easily to place and person. And time. - Labs CBC & Chem 7: 09/17/20 03:50 09/17/20 03:50 Labs: Abnormal Lab Results - Last 24 Hours (Table) 09/16/20 09/16/20 09/17/20 Range/Units 17:25 19:54 00:07 WBC (3.8-10.6) k/uL RBC (4.30-5.90) m/uL Hgb (13.0-17.5) gm/dL Hct (39.0-53.0) % Neutrophils # (1.3-7.7) k/uL Lymphocytes # (1.0-4.8) k/uL Monocytes # (0-1.0) k/uL Potassium (3.5-5.1) mmol/L Chloride (98-107) mmol/L BUN (9-20) mg/dL Glucose (74-99) mg/dL POC Glucose (mg/dL) 126 H 160 H 131 H (75-99) mg/dL Alkaline Phosphatase (38-126) U/L Total Protein (6.3-8.2) g/dL Albumin (3.5-5.0) g/dL 09/17/20 09/17/20 09/17/20 Range/Units 03:50 03:50 05:40 WBC 23.4 H (3.8-10.6) k/uL RBC 3.42 L (4.30-5.90) m/uL Hgb 10.9 L (13.0-17.5) gm/dL Hct 33.3 L (39.0-53.0) % Neutrophils # 20.4 H (1.3-7.7) k/uL Lymphocytes # 0.8 L (1.0-4.8) k/uL Monocytes # 1.4 H (0-1.0) k/uL Potassium 3.4 L (3.5-5.1) mmol/L Chloride 115 H (98-107) mmol/L BUN 46 H (9-20) mg/dL Glucose 137 H (74-99) mg/dL POC Glucose (mg/dL) 135 H (75-99) mg/dL Alkaline Phosphatase 156 H (38-126) U/L Total Protein 5.2 L (6.3-8.2) g/dL Albumin 2.5 L (3.5-5.0) g/dL 09/17/20 Range/Units 11:30 WBC (3.8-10.6) k/uL RBC (4.30-5.90) m/uL Hgb (13.0-17.5) gm/dL Hct (39.0-53.0) % Neutrophils # (1.3-7.7) k/uL Lymphocytes # (1.0-4.8) k/uL Monocytes # (0-1.0) k/uL Potassium (3.5-5.1) mmol/L Chloride (98-107) mmol/L BUN (9-20) mg/dL Glucose (74-99) mg/dL POC Glucose (mg/dL) 140 H (75-99) mg/dL Alkaline Phosphatase (38-126) U/L Total Protein (6.3-8.2) g/dL Albumin (3.5-5.0) g/dL Assessment and Plan Assessment: Impression: Acute hypoxic respiratory failure secondary to pneumonia, likely aspiration unless proven otherwise. Acute complete heart block requiring temporary pacemaker implantation. Severe metabolic acidosis, resolved. Acute kidney injury secondary to acute tubular necrosis. Dyslipidemia. Hypothyroidism. Intermittent episodes of confusion secondary to acute metabolic encephalopathy, improving. Recommendation: Continue antibiotics as per infectious disease on the case. Continue to monitor the patient in the ICU and titrate oxygen accordingly. Cardiology to decide on permanent pacemaker implantation. Titrate oxygen and BiPAP accordingly. Continue to monitor renal profile closely. We'll continue to follow. Time with Patient: Less than 30
[2020-09-17] MEDS ORDERED: LORazepam 2 MG/ML INJ IV STA (16:02)
[2020-09-17] MEDS ORDERED: FUROSEMIDE 10 MG/ML 4 ML VIAL IV STA (16:03)
[2020-09-17] MEDS ORDERED: DEXMEDETOMIDINE/0.9% NACL(PMX) 400 MCG in EMPTY BAG 1 BAG IV SCH (16:15)
--- NOTE | 2020-09-17 23:10 | PN ---
PROGRESS NOTE DATE OF SERVICE: 09/17/2020 REASON FOR FOLLOWUP: Aspiration pneumonia. INTERVAL HISTORY: Patient is currently afebrile. He seems slightly more awake and alert today. He is breathing comfortably. Denies having any chest pain. Occasional cough. No abdominal pain or diarrhea. PHYSICAL EXAMINATION: Blood pressure 120/54 with a pulse of 84, temperature 97.7. He is 99% on 6 L nasal cannula. General description is an elderly male lying in bed in no distress. Respiratory system: Unlabored breathing, decreased breath sounds in the bases. No wheeze. Heart S1, S2. Regular rate and rhythm. Abdomen soft. No tenderness. LABS: Hemoglobin is 10.8, white count 23.8. BUN of 26, creatinine 0.85. DIAGNOSTIC IMPRESSION AND PLAN: Patient admitted to the hospital with episode of unresponsiveness in this patient noticed to have a component of pneumonia, possible aspiration. Patient does have MULTIPLE ANTIBIOTIC ALLERGIES and is currently covered with Azactam and Flagyl to continue and monitor clinical course closely. MMODL / IJN: [id number] /
[2020-09-18] MEDS: INSULIN ASPART (NovoLOG) 100 UNIT/ML VIAL SQ SCH ×4 (01:11→20:13)
[2020-09-18] MEDS: AZTREONAM 2 GM in SODIUM CHLORIDE 0.9% 100 ML IVPB SCH ×3 (01:11→16:03)
[2020-09-18] MEDS: HEPARIN SODIUM,PORCINE 5,000 UNIT/ML 1 ML VIAL SQ SCH ×3 (01:11→16:05)
[2020-09-18 01:13] LABS: Glucose,Whole Blood 150 mg/dL (75-99)
[2020-09-18 04:39] LABS: Basophils # (A) 0.1 k/uL (0-0.2); Basophils % (A) 1 %; Eosinophils % (A) 0 %; HCT 36.4 % (39.0-53.0); Hypochromasia Slight; Lymphocytes # (A) 1.2 k/uL (1.0-4.8); Lymphocytes % (A) 6 %; MCH 29.9 pg (25.0-35.0); MCHC 30.3 g/dL (31.0-37.0); MCV 98.7 fL (80.0-100.0); Monocytes # (A) 0.8 k/uL (0-1.0); Monocytes % (A) 4 %; Neutrophils # (A) 16.9 k/uL (1.3-7.7); Neutrophils % (A) 87 %; Platelet Count 502 k/uL (150-450); RBC 3.69 m/uL (4.30-5.90); RDW 14.8 % (11.5-15.5); WBC 19.4 k/uL (3.8-10.6)
[2020-09-18 04:55] LABS: ALT 42 U/L (4-49); AST 44 U/L (17-59); African American GFR (CKD) >90 (>60 ml/min/1.73 sqM); Albumin 2.8 g/dL (3.5-5.0); Alkaline Phosphatase 170 U/L (38-126); Anion Gap 4 mmol/L; Blood Urea Nitrogen 53 mg/dL (9-20); Calcium 8.8 mg/dL (8.4-10.2); Carbon Dioxide 27 mmol/L (22-30); Chloride 116 mmol/L (98-107); Glucose 134 mg/dL (74-99); Magnesium 2.3 mg/dL (1.6-2.3); Non-African American GFR(CKD) 83 (>60 ml/min/1.73 sqM); Sodium 147 mmol/L (137-145); Total Bilirubin 0.6 mg/dL (0.2-1.3); Total Protein 5.5 g/dL (6.3-8.2)
[2020-09-18 05:57] LABS: Glucose,Whole Blood 119 mg/dL (75-99)
[2020-09-18] MEDS: LEVOTHYROXINE 112 MCG TAB PO SCH (06:01)
[2020-09-18] MEDS: metroNIDAZOLE-NS PMX 500 MG in SALINE 1 100ML.BAG IVPB SCH ×3 (06:16→23:31)
--- NOTE | 2020-09-18 07:48 | XR ---
EXAMINATION TYPE: XR chest 1V portable DATE OF EXAM: 09/18/2020 COMPARISON: 09/17/2020 HISTORY: Shortness of breath TECHNIQUE: Single frontal view of the chest is obtained. FINDINGS: Cardiac leads are stable. Multifocal areas of consolidation stable. No pneumothorax. Small bilateral pleural effusions. Heart size normal. Atherosclerotic change aorta. Hypertrophic and degen erative change of the spine. IMPRESSION: Stable bilateral multifocal infiltrates.
--- NOTE | 2020-09-18 08:18 | PN ---
PROGRESS NOTE Mr. Sheehan is a 74-year-old male who presented with evidence of complete heart block and evidence of pneumonia. He has a temporary pacemaker. He had episode of confusion. He remains confused, but overall stable. His blood pressure and heart rate are stable. His urine output is stable. He continued to be dependent on the pacemaker with underlying complete heart block. He denies any dizziness or palpitation. He is afebrile. He continues to be at this time on Lasix 40 mg IV q.12 hours in addition to his antibiotics, insulin, levothyroxine. PHYSICAL EXAMINATION: Blood pressure 114/50 with the heart rate in the 70s. LUNGS: Clear anteriorly. HEART: Regular rate and rhythm. S1, S2. No S3 with systolic murmur. No diastolic murmur. No rub. ABDOMEN: Soft, nontender. EXTREMITIES: Trace to 1+ edema. LAB DATA: Lab data revealed BUN and creatinine 53 and 0.9. Potassium 4.0. Hemoglobin of 11. His albumin is 2.8. His chest x-ray shows bilateral infiltrates, more noted on the left lung with no significant changes. IMPRESSION: 1. Bilateral pneumonia with initial respiratory failure improved, possible aspiration pneumonia. 2. Complete heart block with temporary pacemaker. 3. Acute kidney injury, improved. 4. Metabolic encephalopathy, stable. 5. Hyperlipidemia. 6. Hypothyroidism. RECOMMENDATION: I have discussed his case with Dr. Rose. He will be evaluated for permanent pacemaker implantation in the next 24 to 48 hours. Otherwise, we will continue present therapy, follow his renal function and depending on his progress, further recommendation will be made. MMODL / IJN: [id number] / JEANIE
--- NOTE | 2020-09-18 08:38 | P.PN ---
Subjective Progress Note Date: 09/18/20 Principal diagnosis: Respiratory failure Patient has been having intermittent confusion. He has been on and off BiPAP over the past 24 hours. Currently he is on high flow nasal cannula. He is taking rapid and shallow breaths. No fevers or chills. Objective - Vital Signs Vital signs: Vital Signs Temp 97.6 F 09/18/20 04:00 Pulse 71 09/18/20 07:00 Resp 37 H 09/18/20 07:00 BP 109/81 09/17/20 22:04 Pulse Ox 92 L 09/18/20 07:00 Intake & Output 09/17/20 09/18/20 09/18/20 18:59 06:59 18:59 Intake Total 823 826.499 93 Output Total 1050 2220 50 Balance -227 -1393.501 43 Weight 87.1 kg 87.2 kg Intake: IV 473 793 43 0.9 NACL 120 460 40 Aztreonam 2 gm In Sodium 100 Chloride 0.9% 100 ml @ 33 .3 mls/hr IVPB Q8HR [facility] Rx#:[id number] Potassium 150 metroNIDAZOLE-NS PMX 500 200 200 mg In Saline 1 100ml.bag @ 100 mls/hr IVPB Q8H [facility] Rx#:[id number] pressure bag 3 33 3 Intake, IV Titration 33.499 Amount Dexmedetomidine/0.9% NaCl 33.499 (Pmx) 400 mcg In Empty Bag 1 bag @ Titrate IV . Q0M [facility] Rx#:[id number] Oral 350 50 Output: Urine 1050 2220 50 Other: Voiding Method Indwelling Catheter Indwelling Catheter ABP, PAP, CO, CI - Last Documented Arterial Blood Pressure 106/46 - Exam Gen: No acute distress. BiPAP in place. HEENT: normocephalic, atraumatic, good hearing acuity, moist mucous membranes Resp: Coarse breath sounds bilaterally CVS: RRR, S1 and S2 normal. good distal perfusion x 4, no appreciable murmurs GI: soft, NTTP, ND. Large ventral hernia. : no SPT, no CVAT, torre catheter is present MSK: 1+ pitting edema, no clubbing Neuro: non-focal, moving all extremities Psych: confused. Disoriented. - Labs CBC & Chem 7: 09/18/20 04:20 09/18/20 04:20 Labs: Abnormal Lab Results - Last 24 Hours (Table) 09/17/20 09/18/20 09/18/20 Range/Units 11:30 01:11 04:20 WBC 19.4 H (3.8-10.6) k/uL RBC 3.69 L (4.30-5.90) m/uL Hgb 11.0 L (13.0-17.5) gm/dL Hct 36.4 L (39.0-53.0) % MCHC 30.3 L (31.0-37.0) g/dL Plt Count 502 H (150-450) k/uL Neutrophils # 16.9 H (1.3-7.7) k/uL Sodium (137-145) mmol/L Chloride (98-107) mmol/L BUN (9-20) mg/dL Glucose (74-99) mg/dL POC Glucose (mg/dL) 140 H 150 H (75-99) mg/dL Alkaline Phosphatase (38-126) U/L Total Protein (6.3-8.2) g/dL Albumin (3.5-5.0) g/dL 09/18/20 09/18/20 Range/Units 04:20 05:52 WBC (3.8-10.6) k/uL RBC (4.30-5.90) m/uL Hgb (13.0-17.5) gm/dL Hct (39.0-53.0) % MCHC (31.0-37.0) g/dL Plt Count (150-450) k/uL Neutrophils # (1.3-7.7) k/uL Sodium 147 H (137-145) mmol/L Chloride 116 H (98-107) mmol/L BUN 53 H (9-20) mg/dL Glucose 134 H (74-99) mg/dL POC Glucose (mg/dL) 119 H (75-99) mg/dL Alkaline Phosphatase 170 H (38-126) U/L Total Protein 5.5 L (6.3-8.2) g/dL Albumin 2.8 L (3.5-5.0) g/dL Assessment and Plan Plan: Unresponsiveness, suspected secondary to bradycardia with complete heart block Acute hypoxic respiratory failure, on mechanical ventilation Community-acquired pneumonia versus aspiration pneumonia -Status post transvenous pacer for third-degree AV block with bradycardia on 09/08/20, awaiting placement of permanent pacemaker by cardiology -Status post bronch with BAL on 09/11, cultures negative -COVID 19 PCR negative -Infectious disease following: Patient on aztreonam, Flagyl, and Fluconazole -Echocardiogram unremarkable with LVEF 55-60% and normal LV wall thickness Acute delirium Quite environment, reorient frequently D/c steroids. Fluid overload now with hypernatremia and elevated BUN Decrease lasix dosing to 20 mg twice a day. Third-degree heart block -Cardiology recommendations. -Cardiology planning permanent pacemaker placement in 1-2 days. Elevated troponin - due to hypoxemia - not consistent with acute coronary syndrome. Hypothyroidism -Continue Synthroid Lactic acidosis, resolved Hyponatremia, resolved Hyperglycemia without known history of diabetes, resolved Acute kidney injury, resolved General weakness PT following DVT prophylaxis: heparin Discussed with: patient, nursing Anticipated discharge: 3 days, Anticipated discharge place: likely will need rehab A total of 25 minutes was spent on the care of this complex patient more than 50% of the time was spent in counseling and care coordination.
[2020-09-18] MEDS: FUROSEMIDE 10 MG/ML 2 ML VIAL IV SCH ×2 (08:44→20:13)
[2020-09-18] MEDS: IPRATROPIUM-ALBUTEROL 3 ML NEB INHALATION SCH ×4 (08:52→19:19)
[2020-09-18] MEDS: DEXTROSE 5% IN WATER 1,000 ML IV SCH (09:00)
[2020-09-18 11:24] LABS: Glucose,Whole Blood 146 mg/dL (75-99)
[2020-09-18] MEDS: FLUCONAZOLE IN NACL,ISO-OSM 200 MG in SALINE 1 100ML.BAG IVPB SCH (11:42)
[2020-09-18] MEDS: NOREPINEPHRINE 8 MG in SODIUM CHLORIDE 0.9% 250 ML IV SCH (12:05)
--- NOTE | 2020-09-18 13:15 | P.PN ---
Subjective Progress Note Date: 09/18/20 Principal diagnosis: Acute hypoxic respiratory failure secondary to pneumonia and fluid overload secondary to third-degree heart block. On 09/10/2020, the patient is being seen for a follow-up. The patient came in to the hospital yesterday and subsequently admitted to the intensive care unit because of difficulty breathing. At a time of arrival to the ED, the patient was discovered to be congestion heart failure and there was also concern for pneumonia/sepsis. Subsequently, the patient developed a third-degree AV block and required intubation mechanical ventilation. Cardiology was consulted. The patient was taken to the [facility] for placement of a temporary venous pacemaker. The patient was brought in back to the intensive care unit intubated on a mechanical ventilator. The patient was sedated and paralyzed with a combination of propofol an endovascular suspected and the patient was requiring pressors including norepinephrine infusion. The patient was also on a bicarb infusion with D5 and 150 mEq of sodium bicarbonate running at 150 mL an hour. IV access was established. The patient was covered with a combination of Azactam, Flagyl and vancomycin as broad-spectrum antibiotic coverage. Chest x-ray showed the possibility of a lower lobe pneumonia bilaterally. As such, the patient was treated for acute hypoxic respiratory failure for the above-mentioned reasons. The patient as mentioned was in a third-degree AV block and required a temporary transvenous pacemaker insertion. The patient was also in acute kidney injury related to above-mentioned comorbidities in addition to a shock liver. Note that the patient's also had a right-sided cardiac cath revealing normal pulmonary artery pressures in the pulmonary capillary wedge pressure was only 14 mmHg , and echocardiogram that was done showed a normal LV systolic function with an ejection fraction of 55-60%, RV was within normal, LAD was within normal limits, mild mitral regurgitation, moderate tricuspid regurgitation and the right posterior systolic pressure was estimated to be 28 mmHg. Noted the patient's cognitive testing came back negative. The white cell count was at 34 at time of admission and came up to 41. The patient had 24% bandemia. The initial blood gases was consistent with severe metabolic acidosis with a pH of 7.03 and a pCO2 of 44 and pO2 of 87. Subsequent blood gases showed improvement and acid base status. The patient was in acute kidney injury with a creatinine of 2.24 and this subsequently improved.. Lactic acid initially was at 6.5 down to 2.9. Troponin peaked at 0.16. ProBNP level was 14,300 and the patient's pro calcitonin level was 25.3. UA was negative. The patient currently has a left IJ triple-lumen catheter in place. He is currently intubated on a mechanical ventilator. He is an assist-control mode with tidal volume of 450, FiO2 of 60% with a PEEP of 15 and a rate of 26. Probable was running at 50 mcg/kg per minute. Nimbex is running at 1.5 mcg/kg per minute. Norepinephrine infusion is running at 0.06 g per kilograms per minute. She is living vital high protein at the rate of 20 mL an hour. The patient is afebrile this morning. The chest x-ray still showing diffuse but the pulmonary infiltrates perihilar and these infiltrates are quite dense.The white cell count is improved and is currently down to 17. The blood gases from today showed a pH of 7.57 with a pCO2 of 31 and pO2 162 as such the patient has developed a combination of respiratory and metabolic alkalosis the renal function is improved in the creatinine is normalized is down to 1.1. His adequate urine output. Lactic acid level is down to 2.4. Cultures are still all. His cardiac rhythm is currently paced at the rate of 60 with an underlying rhythm of third-degree AV block. On 09/11/2020, the patient remains intubated on a mechanical ventilator. This morning, he is on assist control mode at a rate of 26 with a tidal volume of 400 and FiO2 of 50% with a PEEP of 15. The blood gases from this morning showed a pH of 7.46 with a pCO2 of 38 and pO2 of 217. Nevertheless, the chest x-ray still showing bilateral perihilar pulmonary infiltrates with increased consolidation of the lung bases. We are still considering a bacterial pneumonia. The patient's pro calcitonin level was quite elevated and the patient had severe leukocytosis at time of admission. The COVID19 testing 2 came back negative. The patient was covered with a combination of vancomycin, Flagyl, and Azactam. The cultures are all negative. The patient is afebrile fo r now. As mentioned, the white cell count is improving. Meanwhile, his cardiac rhythm is still third-degree AV block is currently paced at the rate of 80 with a transvenous pacemaker through his right IJ. The patient is still on pressors and norepinephrine is running at 0.06 mcg/kg per minute. Urine output is in order of 50 mL an hour and the patient is receiving IV fluids in the form of normal saline today to 100 mL an hour. He is sedated with propofol at 50 mcg/kg per minute. I cell count is down to 14.4. Her lactic acid level was down to 1.6, LFTs are slightly elevated with AST of 137, ALT of 190, serum albumin is at 1.6 and ionized calcium is at 4.6. He is afebrile. He is receiving vital high protein for enteral nutrition today to 45 mL an hour. Patient was reevaluated today on 09/17/2020, patient remains in the ICU, he is being treated for pneumonia and sepsis. Remains on Diflucan, Azactam, and Flagyl. Patient is being treated for presumptive aspiration pneumonia and is also being treated for fluid overload which was felt to be related to his third- degree AV block requiring temporary pacemaker implantation. Patient is intermittently on BiPAP, with IPAP of 12 and EPAP of 5, and 40% FiO2, however he is presently on few liters nasal cannula and seems to be saturating in the mid 90s. Patient was intubated on 09/08 until 09/13. Still being followed by cardiology for potential permanent pacemaker implantation. Presently he is fully paced I his temporary pacemaker. Underwent a bronchoscopy on 09/11, it is nondiagnostic, no specific cultures have been noted. Chest x-ray continues to show bilateral, multifocal interstitial infiltrates basic metabolic profile is normal electrolytes are normal potassium is a bit low at 3.4. Continues to have leukocytosis with WBC count of 23.4 hemoglobin is 10.9. Renal profile is relatively unremarkable however BUN is elevated at 46 and creatinine is 0.85. Reevaluated today on 09/18/2020, patient remains in the ICU, developed significant amount of agitation yesterday, and I had to place the patient on Precedex, 0.2 mcg/kg per hour. Tolerated that quite well, and his symptoms of agitation have significantly improved. Patient is also on IV fluid at 40 mL per hour. He is 100% paced, however his intrinsic rate is in the 30s, patient continues to have third-degree AV block. Patient is scheduled to have permanent pacemaker implantation tomorrow. Chest x-ray continues to show bilateral airspace disease consistent with aspiration. Remains on the Flagyl Diflucan and Azactam. Patient is having issues with swallowing clear liquids, and he is supposed to be given only sick liquids because of potential aspiration with clear liquids. Or thin liquids. Patient will have a pacemaker implanted tomorrow, however he has a left subclavian central line on the left side, and may have to discontinue the central line, and I will arrange for a midline or a PICC line. CBC count today is 19.4. Hemoglobin is 11.0, rest of the labs were noted to be unremarkable, sodium is at the time at 147 and his main IV fluids changed to D5W. BUN is 53 creatinine 0.90. Objective - Vital Signs Vital signs: Vital Signs Temp 98.1 F 09/18/20 08:00 Pulse 70 09/18/20 11:55 Resp 22 09/18/20 10:00 BP 109/81 09/17/20 22:04 Pulse Ox 93 L 09/18/20 10:00 Intake & Output 09/17/20 09/18/20 09/18/20 18:59 06:59 18:59 Intake Total 823 826.499 342 Output Total 1050 2220 400 Balance -227 -1393.501 -58 Weight 87.1 kg 87.2 kg 87.2 kg Intake: IV 473 793 292 0.9 NACL 120 460 80 Aztreonam 2 gm In Sodium 100 100 Chloride 0.9% 100 ml @ 33 .3 mls/hr IVPB Q8HR [facility] Rx#:[id number] Dextrose 5% in Water 1, 100 000 ml @ 50 mls/hr IV . Q20H [facility] Rx#:[id number] Potassium 150 metroNIDAZOLE-NS PMX 500 200 200 mg In Saline 1 100ml.bag @ 100 mls/hr IVPB Q8H [facility] Rx#:[id number] pressure bag 3 33 12 Intake, IV Titration 33.499 Amount Dexmedetomidine/0.9% NaCl 33.499 (Pmx) 400 mcg In Empty Bag 1 bag @ Titrate IV . Q0M [facility] Rx#:[id number] Oral 350 50 Output: Urine 1050 2220 400 Other: Voiding Method Indwelling Catheter Indwelling Catheter Indwelling Catheter ABP, PAP, CO, CI - Last Documented Arterial Blood Pressure 99/53 - Exam Gen: Revealed 74-year-old white male in no distress. HEENT: normocephalic, atraumatic, PERRLA, nonicteric. EOMI. Resp: Symmetrical chest expansion crackles at the bases. CVS: Normal S1 and S2, no S3 gallop. No murmur. GI: Soft nontender no megaly no rebound, large ventral hernia is noted. : Bae catheter is present otherwise negative. MSK: 1+ bipedal edema. Neuro: Alert and oriented 3 focal neurologic deficits. Psych: Confusion seems to be a bit better today. - Labs CBC & Chem 7: 09/18/20 04:20 09/18/20 04:20 Labs: Abnormal Lab Results - Last 24 Hours (Table) 09/18/20 09/18/20 09/18/20 Range/Units 01:11 04:20 04:20 WBC 19.4 H (3.8-10.6) k/uL RBC 3.69 L (4.30-5.90) m/uL Hgb 11.0 L (13.0-17.5) gm/dL Hct 36.4 L (39.0-53.0) % MCHC 30.3 L (31.0-37.0) g/dL Plt Count 502 H (150-450) k/uL Neutrophils # 16.9 H (1.3-7.7) k/uL Sodium 147 H (137-145) mmol/L Chloride 116 H (98-107) mmol/L BUN 53 H (9-20) mg/dL Glucose 134 H (74-99) mg/dL POC Glucose (mg/dL) 150 H (75-99) mg/dL Alkaline Phosphatase 170 H (38-126) U/L Total Protein 5.5 L (6.3-8.2) g/dL Albumin 2.8 L (3.5-5.0) g/dL 09/18/20 09/18/20 Range/Units 05:52 11:23 WBC (3.8-10.6) k/uL RBC (4.30-5.90) m/uL Hgb (13.0-17.5) gm/dL Hct (39.0-53.0) % MCHC (31.0-37.0) g/dL Plt Count (150-450) k/uL Neutrophils # (1.3-7.7) k/uL Sodium (137-145) mmol/L Chloride (98-107) mmol/L BUN (9-20) mg/dL Glucose (74-99) mg/dL POC Glucose (mg/dL) 119 H 146 H (75-99) mg/dL Alkaline Phosphatase (38-126) U/L Total Protein (6.3-8.2) g/dL Albumin (3.5-5.0) g/dL Assessment and Plan Assessment: Impression: Acute hypoxic respiratory failure secondary to pneumonia, likely aspiration unless proven otherwise. Acute complete heart block requiring temporary pacemaker implantation. Severe metabolic acidosis, resolved. Acute kidney injury secondary to acute tubular necrosis. Dyslipidemia. Hypothyroidism. Intermittent episodes of confusion secondary to acute metabolic encephalopathy, improving. Acute toxic metabolic encephalopathy and intermittent confusion, improved with Precedex. Recommendation: Continue antibiotics as per infectious disease on the case. Continue to monitor the patient in the ICU and titrate oxygen accordingly. Cardiology to decide on permanent pacemaker implantation. This will likely be done tomorrow Titrate oxygen and BiPAP accordingly. Continue to monitor daily labs. Discussed his condition with cardiology on the case. We'll continue to follow. Time with Patient: Less than 30
[2020-09-18 14:53] LABS: Ionized Calcium 5.3 mg/dL (4.5-5.3)
[2020-09-18 15:06] LABS: Phosphorus 3.6 mg/dL (2.5-4.5)
[2020-09-18] MEDS ORDERED: LIDOCAINE 1% INJ 10MG/ML (20 ML MDV) SQ ONE (15:15)
--- NOTE | 2020-09-18 15:31 | XR ---
EXAMINATION TYPE: XR chest 1V portable DATE OF EXAM: 09/18/2020 COMPARISON: 09/18/2020 HISTORY: PICC line placement TECHNIQUE: Single frontal view of the chest is obtained. FINDINGS: Right-sided cardiac leads noted with a right-sided PICC line and left-sided central line. Bilateral consolidation and pleural effusion with diffuse interstitial pattern. Hypertrophic and dege nerative change of the spine. No sizable pneumothorax. IMPRESSION: 1. PICC line is in good position. 2. Diffuse pleural-parenchymal changes are stable correlate for multifocal pneumonia versus pulmonary edema.
--- NOTE | 2020-09-18 15:46 | IR ---
PICC LINE PLACEMENT: HISTORY: Infection requiring long-term antibiotic therapy PROCEDURE: Ultrasound guidance of PICC line placement. SHADE CUTTER: Dr. Pierson. COMPLICATIONS: None ANESTHESIA: 1. 1% Lidocaine locally. FINDINGS/TECHNIQUE: The procedure was explained to the patient. The risks, complications, benefits and alternatives were discussed and any questions were answered. Informed consent was obtained. The patient was placed supine on the fluoroscopic table and prepped and draped in the usual sterile fas ion. Utilizing a 21 gauge needle and sonographic guidance, access in the left basilic vein was achi eved and there is placement of a 0.018 guidewire. The vein is patent. A 5-F. sheath was placed over the guidewire. The guidewire and dilator were removed and a 5-F. Double lumen PICC line was placed through the sheath with the chest x-ray confirming the tip at the level of the SVC. The sheath was r emoved, the catheter was flushed and sutured into position. The patient was stable throughout the pr ocedure and remained stable upon discharge from the Department of Radiology. The vein puncture was patent under ultrasound. A martinez scale image was obtained to document patency of the vein punctured. All elements of the maximal barrier technique were utilized. IMPRESSION: 1. Successful PICC line placement under ultrasound performed bedside within the ICU.
[2020-09-18] MEDS ORDERED: POTASSIUM PHOSPHATE IV SCH ×6 (16:00)
[2020-09-18] MEDS ORDERED: CALCIUM GLUCONATE IV SCH ×6 (16:00)
[2020-09-18] MEDS ORDERED: [UNRECOGNIZED DRUG - OTHER] IV SCH ×6 (16:00)
[2020-09-18] MEDS ORDERED: MAGNESIUM SULFATE IV SCH ×6 (16:00)
[2020-09-18] MEDS ORDERED: MVI IV SCH ×6 (16:00)
[2020-09-18] MEDS ORDERED: DEXMEDETOMIDINE/0.9% NACL(PMX) 400 MCG in EMPTY BAG 1 BAG IV SCH (16:15)
[2020-09-18] MEDS: FAT EMULSION 20% 250 ML IV SCH (16:37)
[2020-09-18 17:54] LABS: Glucose,Whole Blood 136 mg/dL (75-99)
--- NOTE | 2020-09-18 22:48 | PN ---
PROGRESS NOTE DATE OF SERVICE: 09/18/2020 REASON FOR FOLLOWUP: Aspiration pneumonia and elevated white count. INTERVAL HISTORY: The patient remains afebrile. The patient is hemodynamically stable, not on any pressor support. FiO2 is currently stable. The patient denies having any chest pain. Cough, though not bringing up any sputum. No abdominal pain or diarrhea. PHYSICAL EXAMINATION: Blood pressure 109/73, pulse of 69, temperature 98. He is 100% on 14 L nasal cannula. General description is an elderly male lying in bed in no distress. RESPIRATORY SYSTEM: Unlabored breathing with decreased breath sounds at the base. No wheeze. HEART: S1, S2. Regular rate and rhythm. ABDOMEN: Soft. No tenderness. LABS: Hemoglobin is 11, white count 19.4, BUN of 53, creatinine 0.90. Bronch culture has been negative. DIAGNOSTIC IMPRESSION AND PLAN: Patient admitted to hospital with an episode of unresponsiveness in this patient who did have possible aspiration pneumonia. Patient has MULTIPLE ANTIBIOTIC ALLERGIES. He is currently covered with aztreonam and Flagyl with antifungal for persistent elevated white count which has shown a downward trend. Continue supportive care. MMODL / IJN: [id number] /
[2020-09-18 23:16] LABS: Glucose,Whole Blood 235 mg/dL (75-99)
[2020-09-19] MEDS: AZTREONAM 2 GM in SODIUM CHLORIDE 0.9% 100 ML IVPB SCH ×3 (00:14→16:54)
[2020-09-19] MEDS: HEPARIN SODIUM,PORCINE 5,000 UNIT/ML 1 ML VIAL SQ SCH ×3 (00:15→16:58)
[2020-09-19 00:19] LABS: Glucose,Whole Blood 158 mg/dL (75-99)
[2020-09-19] MEDS: INSULIN ASPART (NovoLOG) 100 UNIT/ML VIAL SQ SCH ×4 (00:45→19:37)
[2020-09-19 04:01] LABS: African American GFR (CKD) >90 (>60 ml/min/1.73 sqM); Anion Gap 5 mmol/L; Blood Urea Nitrogen 49 mg/dL (9-20); Calcium 8.7 mg/dL (8.4-10.2); Carbon Dioxide 25 mmol/L (22-30); Chloride 117 mmol/L (98-107); Glucose 126 mg/dL (74-99); Magnesium 2.1 mg/dL (1.6-2.3); Non-African American GFR(CKD) >90 (>60 ml/min/1.73 sqM); Phosphorus 4.2 mg/dL (2.5-4.5); Sodium 147 mmol/L (137-145)
[2020-09-19 04:05] LABS: HCT 37.8 % (39.0-53.0); HGB 11.9 gm/dL (13.0-17.5); Hypochromasia Moderate; MCH 31.8 pg (25.0-35.0); MCHC 31.5 g/dL (31.0-37.0); MCV 100.9 fL (80.0-100.0); Macrocytosis Slight; Mean Platelet Volume 8.6; Platelet Count 516 k/uL (150-450); RBC 3.75 m/uL (4.30-5.90); RDW 14.5 % (11.5-15.5); WBC 23.5 k/uL (3.8-10.6)
[2020-09-19 04:18] LABS: Potassium 4.4 mmol/L (3.5-5.1)
[2020-09-19 07:05] LABS: Glucose,Whole Blood 139 mg/dL (75-99)
[2020-09-19] MEDS: IPRATROPIUM-ALBUTEROL 3 ML NEB INHALATION SCH ×4 (07:06→19:58)
[2020-09-19] MEDS: LEVOTHYROXINE 112 MCG TAB PO SCH (07:09)
[2020-09-19] MEDS: metroNIDAZOLE-NS PMX 500 MG in SALINE 1 100ML.BAG IVPB SCH ×2 (07:09→16:53)
--- NOTE | 2020-09-19 08:19 | PN ---
PROGRESS NOTE Mr. Sheehan is a 74-year-old male who presented with a complete heart block and probable aspiration pneumonia. He continued to have a temporary pacemaker. He is more alert today. He continues to be dependent on his pacemaker. He has no chest discomfort. Hemodynamically, he is stable. He is on no pressors. His urine output has been stable. He is scheduled to undergo screw-in temporary pacemaker tomorrow by Dr. Rose. He continues to have leukocytosis and continues to be at this time on furosemide 20 mg IV q.12 hours in addition to the antibiotics. PHYSICAL EXAMINATION: Blood pressure running in the one teens to 120s with the heart rate in the 70s. LUNGS: With bilateral few crackles. No wheezes. HEART: Regular rate and rhythm. S1, S2. No S3 with systolic murmur. No diastolic murmur. No rub. ABDOMEN: Soft, nontender. Positive bowel sounds. No organomegaly. EXTREMITIES: +1 edema. LAB DATA: Lab data revealed a white blood cell 23.5, hemoglobin of 11.9, platelet count 516. His BUN and creatinine 49 and 0.72. Potassium 4.4. Chest x-ray revealed bilateral infiltrate. IMPRESSION: 1. Complete heart block with temporary pacemaker. 2. Pneumonia with possible aspiration pneumonia. 3. Persistent leukocytosis. 4. Confusion, improving. 5. Acute kidney injury, improving. RECOMMENDATION: Continue present therapy. We will proceed with screw-in temporary pacemaker tomorrow until his leukocytosis and signs of infection resolves then we will proceed with permanent pacemaker implantation. MMODL / IJN: [id number] /
[2020-09-19] MEDS: DEXTROSE 5% IN WATER 1,000 ML IV SCH ×2 (08:31→20:55)
[2020-09-19] MEDS: FUROSEMIDE 10 MG/ML 2 ML VIAL IV SCH ×2 (08:35→20:46)
[2020-09-19] MEDS: FAT EMULSION 20% 250 ML IV SCH (08:35)
--- NOTE | 2020-09-19 09:06 | XR ---
EXAMINATION TYPE: XR chest 1V portable DATE OF EXAM: 09/19/2020 COMPARISON: 09/18/2020 HISTORY: Shortness of breath TECHNIQUE: Single frontal view of the chest is obtained. FINDINGS: Right-sided cardiac leads noted with a right-sided PICC line. Left-sided central line has been removed. Bilateral consolidation and pleural effusion with diffuse interstitial pattern. Hypertr ophic and degenerative change of the spine. No sizable pneumothorax. IMPRESSION: Diffuse bilateral airspace disease stable.
--- NOTE | 2020-09-19 10:25 | P.PN ---
Subjective Progress Note Date: 09/19/20 Principal diagnosis: Respiratory failure Patient doing well, is more alert and oriented today compared to yesterday. He denied having chest pain or shortness of breath. No fevers or chills. Has been on Precedex for sedation due to agitation, improved. Objective - Vital Signs Vital signs: Vital Signs Temp 98.1 F 09/19/20 08:00 Pulse 70 09/19/20 08:00 Resp 18 09/19/20 08:00 BP 99/59 09/19/20 08:00 Pulse Ox 93 L 09/19/20 08:00 Intake & Output 09/18/20 09/19/20 09/19/20 18:59 06:59 18:59 Intake Total 1969.108 8478.820 340 Output Total 925 1285 175 Balance 181.238 184.820 165 Weight 87.2 kg 86.1 kg Intake: IV 1017.6 1192.07 340 0.9 NACL 80 Aztreonam 2 gm In Sodium 100 100 Chloride 0.9% 100 ml @ 33 .3 mls/hr IVPB Q8HR [facility] Rx#:[id number] Dextrose 5% in Water 1, 500 400 150 000 ml @ 50 mls/hr IV . Q20H [facility] Rx#:[id number] Fat Emulsion 20% 250 ml @ 41.6 229.07 20.833 mls/hr IV DAILY [facility] Rx#:[id number] Fluconazole in NaCl,Iso- 100 Osm 200 mg In Saline 1 100ml.bag @ 100 mls/hr IVPB DAILY@1200 [facility] Rx#: [id number] Potassium Phosphate 30 60 360 90 mmol Magnesium Sulfate gm 1 gm Calcium Gluconate 1 gm Mvi, Adult No.4 with Vit K 10 ml Trace (Conc- 1Ml/Dose) 1 ml In Amino Acids 5 %/Dextrose 20 % 1 ,000 ml @ 30 mls/hr IV . Q24H [facility] Rx#:[id number] metroNIDAZOLE-NS PMX 500 100 100 100 mg In Saline 1 100ml.bag @ 100 mls/hr IVPB Q8H [facility] Rx#:[id number] pressure bag 36 3 Intake, IV Titration 38.638 277.750 Amount Dexmedetomidine/0.9% NaCl 0.109 58.279 (Pmx) 400 mcg In Empty Bag 1 bag @ Titrate IV . Q0M [facility] Rx#:[id number] Norepinephrine 8 mg In 38.529 219.471 Sodium Chloride 0.9% 250 ml @ 0.05 MCG/KG/MIN 8. 437 mls/hr IV .Q24H [facility] Rx#:[id number] Oral 50 Output: Urine 925 1285 175 Other: Voiding Method Indwelling Catheter Indwelling Catheter ABP, PAP, CO, CI - Last Documented Arterial Blood Pressure 71/59 - Exam Gen: No acute distress. HEENT: normocephalic, atraumatic, good hearing acuity, moist mucous membranes Resp: Coarse breath sounds bilaterally CVS: RRR, S1 and S2 normal. good distal perfusion x 4, no appreciable murmurs GI: soft, NTTP, ND. Large ventral hernia. : no SPT, no CVAT, torre catheter is present MSK: 1+ pitting edema, no clubbing Neuro: non-focal, moving all extremities Psych: confused. Disoriented. - Labs CBC & Chem 7: 09/19/20 03:40 09/19/20 03:15 Labs: Abnormal Lab Results - Last 24 Hours (Table) 09/18/20 09/18/20 09/18/20 Range/Units 11:23 14:30 17:52 WBC (3.8-10.6) k/uL RBC (4.30-5.90) m/uL Hgb (13.0-17.5) gm/dL Hct (39.0-53.0) % MCV (80.0-100.0) fL Plt Count (150-450) k/uL Sodium (137-145) mmol/L Chloride (98-107) mmol/L BUN (9-20) mg/dL Glucose (74-99) mg/dL POC Glucose (mg/dL) 146 H 136 H (75-99) mg/dL Triglycerides 171 H (<150) mg/dL 09/18/20 09/19/20 09/19/20 Range/Units 23:14 00:17 03:15 WBC (3.8-10.6) k/uL RBC (4.30-5.90) m/uL Hgb (13.0-17.5) gm/dL Hct (39.0-53.0) % MCV (80.0-100.0) fL Plt Count (150-450) k/uL Sodium 147 H (137-145) mmol/L Chloride 117 H (98-107) mmol/L BUN 49 H (9-20) mg/dL Glucose 126 H (74-99) mg/dL POC Glucose (mg/dL) 235 H 158 H (75-99) mg/dL Triglycerides (<150) mg/dL 09/19/20 09/19/20 Range/Units 03:40 07:03 WBC 23.5 H (3.8-10.6) k/uL RBC 3.75 L (4.30-5.90) m/uL Hgb 11.9 L (13.0-17.5) gm/dL Hct 37.8 L (39.0-53.0) % MCV 100.9 H (80.0-100.0) fL Plt Count 516 H (150-450) k/uL Sodium (137-145) mmol/L Chloride (98-107) mmol/L BUN (9-20) mg/dL Glucose (74-99) mg/dL POC Glucose (mg/dL) 139 H (75-99) mg/dL Triglycerides (<150) mg/dL Assessment and Plan Plan: Unresponsiveness, suspected secondary to bradycardia with complete heart block Acute hypoxic respiratory failure, on mechanical ventilation Community-acquired pneumonia versus aspiration pneumonia -Status post transvenous pacer for third-degree AV block with bradycardia on 09/08/20, cardiology planning temporary pacer placement tomorrow. -Status post bronch with BAL on 09/11, cultures negative -COVID 19 PCR negative -Infectious disease following: Patient on aztreonam, Flagyl, and Fluconazole. Clindamycin added by infectious disease on 09/18 due to persistent leukocytosis. -Echocardiogram unremarkable with LVEF 55-60% and normal LV wall thickness Acute delirium Quite environment, reorient frequently Precedex gtt Improved Fluid overload now with hypernatremia and elevated BUN Continue lasix dosing to 20 mg twice a day. Third-degree heart block -Cardiology recommendations. -Cardiology planning temporary pacer placement tomorrow Elevated troponin - due to hypoxemia - not consistent with acute coronary syndrome. Hypothyroidism -Continue Synthroid Lactic acidosis, resolved Hyponatremia, resolved Hyperglycemia without known history of diabetes, resolved Acute kidney injury, resolved General weakness PT following DVT prophylaxis: heparin Discussed with: patient, nursing Anticipated discharge: 3 days, Anticipated discharge place: likely will need rehab A total of 25 minutes was spent on the care of this complex patient more than 50% of the time was spent in counseling and care coordination.
[2020-09-19 11:20] LABS: Glucose,Whole Blood 125 mg/dL (75-99)
[2020-09-19] MEDS: NOREPINEPHRINE 8 MG in SODIUM CHLORIDE 0.9% 250 ML IV SCH (11:31)
[2020-09-19] MEDS: FLUCONAZOLE IN NACL,ISO-OSM 200 MG in SALINE 1 100ML.BAG IVPB SCH (11:33)
--- NOTE | 2020-09-19 13:13 | P.PN ---
Subjective Progress Note Date: 09/19/20 Principal diagnosis: Acute hypoxic respiratory failure secondary to pneumonia and fluid overload secondary to third-degree heart block. On 09/10/2020, the patient is being seen for a follow-up. The patient came in to the hospital yesterday and subsequently admitted to the intensive care unit because of difficulty breathing. At a time of arrival to the ED, the patient was discovered to be congestion heart failure and there was also concern for pneumonia/sepsis. Subsequently, the patient developed a third-degree AV block and required intubation mechanical ventilation. Cardiology was consulted. The patient was taken to the [facility] for placement of a temporary venous pacemaker. The patient was brought in back to the intensive care unit intubated on a mechanical ventilator. The patient was sedated and paralyzed with a combination of propofol an endovascular suspected and the patient was requiring pressors including norepinephrine infusion. The patient was also on a bicarb infusion with D5 and 150 mEq of sodium bicarbonate running at 150 mL an hour. IV access was established. The patient was covered with a combination of Azactam, Flagyl and vancomycin as broad-spectrum antibiotic coverage. Chest x-ray showed the possibility of a lower lobe pneumonia bilaterally. As such, the patient was treated for acute hypoxic respiratory failure for the above-mentioned reasons. The patient as mentioned was in a third-degree AV block and required a temporary transvenous pacemaker insertion. The patient was also in acute kidney injury related to above-mentioned comorbidities in addition to a shock liver. Note that the patient's also had a right-sided cardiac cath revealing normal pulmonary artery pressures in the pulmonary capillary wedge pressure was only 14 mmHg , and echocardiogram that was done showed a normal LV systolic function with an ejection fraction of 55-60%, RV was within normal, LAD was within normal limits, mild mitral regurgitation, moderate tricuspid regurgitation and the right posterior systolic pressure was estimated to be 28 mmHg. Noted the patient's cognitive testing came back negative. The white cell count was at 34 at time of admission and came up to 41. The patient had 24% bandemia. The initial blood gases was consistent with severe metabolic acidosis with a pH of 7.03 and a pCO2 of 44 and pO2 of 87. Subsequent blood gases showed improvement and acid base status. The patient was in acute kidney injury with a creatinine of 2.24 and this subsequently improved.. Lactic acid initially was at 6.5 down to 2.9. Troponin peaked at 0.16. ProBNP level was 14,300 and the patient's pro calcitonin level was 25.3. UA was negative. The patient currently has a left IJ triple-lumen catheter in place. He is currently intubated on a mechanical ventilator. He is an assist-control mode with tidal volume of 450, FiO2 of 60% with a PEEP of 15 and a rate of 26. Probable was running at 50 mcg/kg per minute. Nimbex is running at 1.5 mcg/kg per minute. Norepinephrine infusion is running at 0.06 g per kilograms per minute. She is living vital high protein at the rate of 20 mL an hour. The patient is afebrile this morning. The chest x-ray still showing diffuse but the pulmonary infiltrates perihilar and these infiltrates are quite dense.The white cell count is improved and is currently down to 17. The blood gases from today showed a pH of 7.57 with a pCO2 of 31 and pO2 162 as such the patient has developed a combination of respiratory and metabolic alkalosis the renal function is improved in the creatinine is normalized is down to 1.1. His adequate urine output. Lactic acid level is down to 2.4. Cultures are still all. His cardiac rhythm is currently paced at the rate of 60 with an underlying rhythm of third-degree AV block. On 09/11/2020, the patient remains intubated on a mechanical ventilator. This morning, he is on assist control mode at a rate of 26 with a tidal volume of 400 and FiO2 of 50% with a PEEP of 15. The blood gases from this morning showed a pH of 7.46 with a pCO2 of 38 and pO2 of 217. Nevertheless, the chest x-ray still showing bilateral perihilar pulmonary infiltrates with increased consolidation of the lung bases. We are still considering a bacterial pneumonia. The patient's pro calcitonin level was quite elevated and the patient had severe leukocytosis at time of admission. The COVID19 testing 2 came back negative. The patient was covered with a combination of vancomycin, Flagyl, and Azactam. The cultures are all negative. The patient is afebrile fo r now. As mentioned, the white cell count is improving. Meanwhile, his cardiac rhythm is still third-degree AV block is currently paced at the rate of 80 with a transvenous pacemaker through his right IJ. The patient is still on pressors and norepinephrine is running at 0.06 mcg/kg per minute. Urine output is in order of 50 mL an hour and the patient is receiving IV fluids in the form of normal saline today to 100 mL an hour. He is sedated with propofol at 50 mcg/kg per minute. I cell count is down to 14.4. Her lactic acid level was down to 1.6, LFTs are slightly elevated with AST of 137, ALT of 190, serum albumin is at 1.6 and ionized calcium is at 4.6. He is afebrile. He is receiving vital high protein for enteral nutrition today to 45 mL an hour. Patient was reevaluated today on 09/17/2020, patient remains in the ICU, he is being treated for pneumonia and sepsis. Remains on Diflucan, Azactam, and Flagyl. Patient is being treated for presumptive aspiration pneumonia and is also being treated for fluid overload which was felt to be related to his third- degree AV block requiring temporary pacemaker implantation. Patient is intermittently on BiPAP, with IPAP of 12 and EPAP of 5, and 40% FiO2, however he is presently on few liters nasal cannula and seems to be saturating in the mid 90s. Patient was intubated on 09/08 until 09/13. Still being followed by cardiology for potential permanent pacemaker implantation. Presently he is fully paced I his temporary pacemaker. Underwent a bronchoscopy on 09/11, it is nondiagnostic, no specific cultures have been noted. Chest x-ray continues to show bilateral, multifocal interstitial infiltrates basic metabolic profile is normal electrolytes are normal potassium is a bit low at 3.4. Continues to have leukocytosis with WBC count of 23.4 hemoglobin is 10.9. Renal profile is relatively unremarkable however BUN is elevated at 46 and creatinine is 0.85. Reevaluated today on 09/18/2020, patient remains in the ICU, developed significant amount of agitation yesterday, and I had to place the patient on Precedex, 0.2 mcg/kg per hour. Tolerated that quite well, and his symptoms of agitation have significantly improved. Patient is also on IV fluid at 40 mL per hour. He is 100% paced, however his intrinsic rate is in the 30s, patient continues to have third-degree AV block. Patient is scheduled to have permanent pacemaker implantation tomorrow. Chest x-ray continues to show bilateral airspace disease consistent with aspiration. Remains on the Flagyl Diflucan and Azactam. Patient is having issues with swallowing clear liquids, and he is supposed to be given only sick liquids because of potential aspiration with clear liquids. Or thin liquids. Patient will have a pacemaker implanted tomorrow, however he has a left subclavian central line on the left side, and may have to discontinue the central line, and I will arrange for a midline or a PICC line. CBC count today is 19.4. Hemoglobin is 11.0, rest of the labs were noted to be unremarkable, sodium is at the time at 147 and his main IV fluids changed to D5W. BUN is 53 creatinine 0.90. Patient was reevaluated today on 09/19/2020, patient remains in the ICU, remains on Precedex at 0.15 mcg/kg per hour. Patient is on TPN, given via PICC line. Remains on antibiotics for aspiration pneumonia including Azactam and Flagyl and clindamycin. Intermittently on BiPAP with IPAP of 12 EPAP of 5, presently on 11 L high flow nasal cannula. Chest x-ray continues to show bilateral airspace disease right upper lobe and left midlung involvement. Continues to have third- degree AV block and with was taken off the temporary pacemaker, patient was noted to have even asystole. He is pacemaker dependent. Patient is scheduled to have a temporary pacemaker/external to be done tomorrow no clear-cut reason why the patient could not have permanent pacemaker implantation. At any rate pulmonary-min the patient continues to gradually improve, and remains empirically on antibiotics, no specific cultures were noted to be positive. CBC continues to show leukocytosis with WBC of 23.5 hemoglobin is 11.9 electrolytes are normal except for elevated sodium of 147. Objective - Vital Signs Vital signs: Vital Signs Temp 98.1 F 09/19/20 08:00 Pulse 69 09/19/20 11:16 Resp 26 H 09/19/20 11:00 BP 94/56 09/19/20 11:00 Pulse Ox 94 L 09/19/20 11:00 Intake & Output 09/18/20 09/19/20 09/19/20 18:59 06:59 18:59 Intake Total 0156.676 5153.820 800.8 Output Total 925 1285 400 Balance 181.238 184.820 400.8 Weight 87.2 kg 86.1 kg Intake: IV 1017.6 1192.07 800.8 0.9 NACL 80 Aztreonam 2 gm In Sodium 100 100 100 Chloride 0.9% 100 ml @ 33 .3 mls/hr IVPB Q8HR [facility] Rx#:[id number] Dextrose 5% in Water 1, 500 400 300 000 ml @ 50 mls/hr IV . Q20H [facility] Rx#:[id number] Fat Emulsion 20% 250 ml @ 41.6 229.07 20.8 20.833 mls/hr IV DAILY [facility] Rx#:[id number] Fluconazole in NaCl,Iso- 100 100 Osm 200 mg In Saline 1 100ml.bag @ 100 mls/hr IVPB DAILY@1200 [facility] Rx#: [id number] Potassium Phosphate 30 60 360 180 mmol Magnesium Sulfate gm 1 gm Calcium Gluconate 1 gm Mvi, Adult No.4 with Vit K 10 ml Trace (Conc- 1Ml/Dose) 1 ml In Amino Acids 5 %/Dextrose 20 % 1 ,000 ml @ 30 mls/hr IV . Q24H [facility] Rx#:[id number] metroNIDAZOLE-NS PMX 500 100 100 100 mg In Saline 1 100ml.bag @ 100 mls/hr IVPB Q8H [facility] Rx#:[id number] pressure bag 36 3 Intake, IV Titration 38.638 277.750 Amount Dexmedetomidine/0.9% NaCl 0.109 58.279 (Pmx) 400 mcg In Empty Bag 1 bag @ Titrate IV . Q0M [facility] Rx#:[id number] Norepinephrine 8 mg In 38.529 219.471 Sodium Chloride 0.9% 250 ml @ 0.05 MCG/KG/MIN 8. 437 mls/hr IV .Q24H [facility] Rx#:[id number] Oral 50 Output: Urine 925 1285 400 Other: Voiding Method Indwelling Catheter Indwelling Catheter ABP, PAP, CO, CI - Last Documented Arterial Blood Pressure 71/59 - Exam Gen: Revealed 74-year-old white male in no distress. On 11 L high flow nasal cannula. HEENT: normocephalic, atraumatic, PERRLA, nonicteric. EOMI. Resp: Symmetrical chest expansion crackles at the bases. CVS: Normal S1 and S2, no S3 gallop. No murmur. GI: Soft nontender no megaly no rebound, large ventral hernia is noted. : Bae catheter is present otherwise negative. MSK: 1+ bipedal edema. Neuro: Alert and oriented 3 focal neurologic deficits. Psych: Normal mood, affect and normal mental status examination today. - Labs CBC & Chem 7: 09/19/20 03:40 09/19/20 03:15 Labs: Abnormal Lab Results - Last 24 Hours (Table) 09/18/20 09/18/20 09/18/20 Range/Units 14:30 17:52 23:14 WBC (3.8-10.6) k/uL RBC (4.30-5.90) m/uL Hgb (13.0-17.5) gm/dL Hct (39.0-53.0) % MCV (80.0-100.0) fL Plt Count (150-450) k/uL Sodium (137-145) mmol/L Chloride (98-107) mmol/L BUN (9-20) mg/dL Glucose (74-99) mg/dL POC Glucose (mg/dL) 136 H 235 H (75-99) mg/dL Triglycerides 171 H (<150) mg/dL 09/19/20 09/19/20 09/19/20 Range/Units 00:17 03:15 03:40 WBC 23.5 H (3.8-10.6) k/uL RBC 3.75 L (4.30-5.90) m/uL Hgb 11.9 L (13.0-17.5) gm/dL Hct 37.8 L (39.0-53.0) % MCV 100.9 H (80.0-100.0) fL Plt Count 516 H (150-450) k/uL Sodium 147 H (137-145) mmol/L Chloride 117 H (98-107) mmol/L BUN 49 H (9-20) mg/dL Glucose 126 H (74-99) mg/dL POC Glucose (mg/dL) 158 H (75-99) mg/dL Triglycerides (<150) mg/dL 09/19/20 09/19/20 Range/Units 07:03 11:19 WBC (3.8-10.6) k/uL RBC (4.30-5.90) m/uL Hgb (13.0-17.5) gm/dL Hct (39.0-53.0) % MCV (80.0-100.0) fL Plt Count (150-450) k/uL Sodium (137-145) mmol/L Chloride (98-107) mmol/L BUN (9-20) mg/dL Glucose (74-99) mg/dL POC Glucose (mg/dL) 139 H 125 H (75-99) mg/dL Triglycerides (<150) mg/dL Assessment and Plan Assessment: Impression: Acute hypoxic respiratory failure secondary to pneumonia, likely aspiration unless proven otherwise. Acute complete heart block requiring temporary pacemaker implantation. Severe metabolic acidosis, resolved. Acute kidney injury secondary to acute tubular necrosis. Dyslipidemia. Hypothyroidism. Intermittent episodes of confusion secondary to acute metabolic encephalopathy, improving. Acute toxic metabolic encephalopathy and intermittent confusion, improved with Precedex. Recommendation: Continue antibiotics as per infectious disease on the case. Continue to monitor the patient in the ICU and titrate oxygen accordingly. Cardiology to decide on permanent pacemaker implantation. Titrate oxygen and BiPAP accordingly. Continue to monitor daily labs. Continue nutritional support/TPN via PICC line. Patient is having some difficulty with swallowing and concern about aspiration. We'll continue to follow. Time with Patient: Less than 30
[2020-09-19 17:24] LABS: Glucose,Whole Blood 127 mg/dL (75-99)
[2020-09-19] MEDS ORDERED: DEXMEDETOMIDINE/0.9% NACL(PMX) 400 MCG in EMPTY BAG 1 BAG IV SCH (17:58)
[2020-09-19] MEDS ORDERED: VANCOMYCIN IV PER PHARMACY 1 EACH MISC MISCELLANE PRN (20:53)
[2020-09-19] MEDS ORDERED: LACTATED RINGERS 1,000 ML IV SCH (21:45)
--- NOTE | 2020-09-19 21:55 | PN ---
PROGRESS NOTE DATE OF SERVICE: 09/19/2020 REASON FOR FOLLOWUP: Aspiration pneumonia. INTERVAL HISTORY: The patient is currently afebrile. The patient is breathing comfortably, hemodynamically stable. The patient is still requiring nasal cannula oxygen. No nausea, no vomiting, no abdominal pain or diarrhea. PHYSICAL EXAMINATION: Blood pressure is 95/59 with a pulse of 69, temperature is 97.9. He is 97% on 9 L nasal cannula. General description is an elderly male lying in bed in no distress. RESPIRATORY SYSTEM: Unlabored breathing with decreased breath sounds at the base. No wheeze. HEART: S1, S2. Regular rate and rhythm. ABDOMEN: Soft. No tenderness. LABS: Hemoglobin is 11.1, white count 23.5. BUN of 49, creatinine 0.7. DIAGNOSTIC IMPRESSION AND PLAN: Patient with a component of aspiration pneumonia in this patient now with evidence of persistent elevated white count. The patient did have a temporary pacemaker, right side central line some of this elevated white count. Will add vancomycin. Will monitor clinical course closely. Continue with supportive care. MMODL / IJN: [id number] /
[2020-09-19] MEDS ORDERED: VANCOMYCIN 1,250 MG in SODIUM CHLORIDE 0.9% 250 ML IVPB SCH (22:00)
[2020-09-19 23:29] LABS: Glucose,Whole Blood 144 mg/dL (75-99)
[2020-09-20] MEDS: HEPARIN SODIUM,PORCINE 5,000 UNIT/ML 1 ML VIAL SQ SCH ×4 (00:36→23:36)
[2020-09-20] MEDS: INSULIN ASPART (NovoLOG) 100 UNIT/ML VIAL SQ SCH ×5 (00:36→23:37)
[2020-09-20] MEDS: metroNIDAZOLE-NS PMX 500 MG in SALINE 1 100ML.BAG IVPB SCH ×4 (00:38→21:47)
[2020-09-20] MEDS: [UNRECOGNIZED DRUG - OTHER] IV SCH ×18 (02:40→20:13)
[2020-09-20] MEDS: POTASSIUM PHOSPHATE IV SCH ×18 (02:40→20:13)
[2020-09-20] MEDS: MAGNESIUM SULFATE IV SCH ×18 (02:40→20:13)
[2020-09-20] MEDS: CALCIUM GLUCONATE IV SCH ×18 (02:40→20:13)
[2020-09-20 04:45] LABS: HCT 36.2 % (39.0-53.0); HGB 11.1 gm/dL (13.0-17.5); Hypochromasia Slight; MCH 30.2 pg (25.0-35.0); MCHC 30.6 g/dL (31.0-37.0); MCV 98.4 fL (80.0-100.0); Mean Platelet Volume 8.6; Platelet Count 548 k/uL (150-450); RBC 3.68 m/uL (4.30-5.90); RDW 14.8 % (11.5-15.5); WBC 19.2 k/uL (3.8-10.6)
[2020-09-20] MEDS: AZTREONAM 2 GM in SODIUM CHLORIDE 0.9% 100 ML IVPB SCH ×4 (04:49→23:36)
[2020-09-20 05:02] LABS: African American GFR (CKD) >90 (>60 ml/min/1.73 sqM); Anion Gap 4 mmol/L; Blood Urea Nitrogen 37 mg/dL (9-20); Calcium 8.5 mg/dL (8.4-10.2); Carbon Dioxide 26 mmol/L (22-30); Chloride 113 mmol/L (98-107); Glucose 131 mg/dL (74-99); Magnesium 1.8 mg/dL (1.6-2.3); Non-African American GFR(CKD) >90 (>60 ml/min/1.73 sqM); Phosphorus 4.4 mg/dL (2.5-4.5); Sodium 143 mmol/L (137-145)
[2020-09-20] MEDS ORDERED: CLINDAMYCIN 900 MG in DEXTROSE 5% IN WATER 50 ML IVPB PRN ×2 (06:30)
[2020-09-20] MEDS: LEVOTHYROXINE 112 MCG TAB PO SCH (06:40)
[2020-09-20 06:44] LABS: Glucose,Whole Blood 151 mg/dL (75-99)
[2020-09-20] MEDS: IPRATROPIUM-ALBUTEROL 3 ML NEB INHALATION SCH ×4 (07:43→19:28)
--- NOTE | 2020-09-20 08:35 | XR ---
EXAMINATION TYPE: XR chest 1V portable DATE OF EXAM: 09/20/2020 Comparison: 09/19/2020 Clinical History: 74-year-old male Pneumonia Findings: Right PICC tip at the cavoatrial junction. A right ventricular pacer lead is noted. Heart upper limit s of normal in size. Interstitial opacities persist with more confluent consolidation in the right up per lobe and left hilar region. Impression: Continued interstitial lung disease with more confluent consolidation right upper lobe and left and p erihilar region. Exam is relatively stable.
[2020-09-20] MEDS: MAGNESIUM SULFATE-D5W PMX 1 GM in DEXTROSE/WATER 1 100ML.BAG IVPB SCH ×2 (08:39→08:44)
[2020-09-20] MEDS: FAT EMULSION 20% 250 ML IV SCH (08:43)
[2020-09-20] MEDS: FUROSEMIDE 10 MG/ML 2 ML VIAL IV SCH (08:44)
--- NOTE | 2020-09-20 08:51 | PN ---
PROGRESS NOTE Mr. Sheehan is a 74-year-old male who presented with complete heart block requiring permanent pacemaker implantation with aspiration pneumonia. He is more alert and awake today. He is scheduled to undergo an externalized screw-in temporary pacemaker. He continues to be depending on his pacemaker. He is hemodynamically stable. His blood pressure is stable. He denies any dizziness or palpitation. He denies any nausea. He continues to be on aztreonam, fluconazole, furosemide 20 mg IV q.12 hours. PHYSICAL EXAMINATION: Blood pressure 122/60 with the heart rate in the 70. LUNGS: A few crackles at the bases. HEART: Regular rate and rhythm. S1, S2. No S3 with systolic murmur. No diastolic murmur. No rub. ABDOMEN: Soft, nontender. EXTREMITIES: No edema. LAB DATA: Lab data revealed hemoglobin of 11.1. His white blood cell down to 19.2, potassium 4.0. His chest x-ray shows continued bilateral infiltrates. IMPRESSION: 1. Complete heart block requiring temporary pacemaker scheduled for screw-in externalized pacemaker. 2. Pneumonia with probable aspiration pneumonia. 3. Leukocytosis, improving. 4. Confusion, improving. 5. Acute kidney injury. RECOMMENDATION: Will proceed with the pacemaker implantation today and once his leukocytosis resolves then he will be evaluated for permanent pacemaker implantation. MMODL / IJN: [id number] /
--- NOTE | 2020-09-20 10:05 | P.PN ---
Subjective Progress Note Date: 09/20/20 Principal diagnosis: Respiratory failure Doing well. His mentation is better. He is on minimal dose of precedex. He is calm and cooperative. Only slightly confused. He knows he is going for a PM placement but he says he is going ''somewhere'' after that. Objective - Vital Signs Vital signs: Vital Signs Temp 98.0 F 09/19/20 20:00 Pulse 74 09/20/20 07:56 Resp 12 09/20/20 06:00 BP 122/66 09/20/20 06:00 Pulse Ox 95 09/20/20 06:00 Intake & Output 09/19/20 09/20/20 09/20/20 18:59 06:59 18:59 Intake Total 1707.2 1120.83 Output Total 1175 1450 Balance 532.2 -329.17 Weight 85.3 kg Intake: IV 1707.2 1120.83 Aztreonam 2 gm In Sodium 100 100 Chloride 0.9% 100 ml @ 33 .3 mls/hr IVPB Q8HR [facility] Rx#:[id number] Dextrose 5% in Water 1, 700 400 000 ml @ 50 mls/hr IV . Q20H [facility] Rx#:[id number] Fat Emulsion 20% 250 ml @ 187.2 20.83 20.833 mls/hr IV DAILY [facility] Rx#:[id number] Fluconazole in NaCl,Iso- 100 Osm 200 mg In Saline 1 100ml.bag @ 100 mls/hr IVPB DAILY@1200 [facility] Rx#: [id number] Potassium Phosphate 30 450 mmol Magnesium Sulfate gm 1 gm Calcium Gluconate 1 gm In Amino Acids 5 %/ Dextrose 20 % 1,000 ml @ 75 mls/hr IV .BY DURATION [facility] Rx#:[id number] Potassium Phosphate 30 420 150 mmol Magnesium Sulfate gm 1 gm Calcium Gluconate 1 gm Mvi, Adult No.4 with Vit K 10 ml Trace (Conc- 1Ml/Dose) 1 ml In Amino Acids 5 %/Dextrose 20 % 1 ,000 ml @ 30 mls/hr IV . Q24H [facility] Rx#:[id number] metroNIDAZOLE-NS PMX 500 200 mg In Saline 1 100ml.bag @ 100 mls/hr IVPB Q8H [facility] Rx#:[id number] Output: Urine 1175 1450 Other: Voiding Method Indwelling Catheter Indwelling Catheter ABP, PAP, CO, CI - Last Documented Arterial Blood Pressure 71/59 - Exam Gen: No acute distress. HEENT: normocephalic, atraumatic, good hearing acuity, moist mucous membranes Resp: Coarse breath sounds bilaterally CVS: RRR, S1 and S2 normal. good distal perfusion x 4, no appreciable murmurs GI: soft, NTTP, ND. Large ventral hernia. : no SPT, no CVAT, torre catheter is present MSK: 1+ pitting edema, no clubbing Neuro: non-focal, moving all extremities Psych: confused. Disoriented. - Labs CBC & Chem 7: 09/20/20 03:53 09/20/20 03:53 Labs: Abnormal Lab Results - Last 24 Hours (Table) 09/19/20 09/19/20 09/19/20 Range/Units 11:19 17:23 23:27 WBC (3.8-10.6) k/uL RBC (4.30-5.90) m/uL Hgb (13.0-17.5) gm/dL Hct (39.0-53.0) % MCHC (31.0-37.0) g/dL Plt Count (150-450) k/uL Chloride (98-107) mmol/L BUN (9-20) mg/dL Glucose (74-99) mg/dL POC Glucose (mg/dL) 125 H 127 H 144 H (75-99) mg/dL 09/20/20 09/20/20 09/20/20 Range/Units 03:53 03:53 06:43 WBC 19.2 H (3.8-10.6) k/uL RBC 3.68 L (4.30-5.90) m/uL Hgb 11.1 L (13.0-17.5) gm/dL Hct 36.2 L (39.0-53.0) % MCHC 30.6 L (31.0-37.0) g/dL Plt Count 548 H (150-450) k/uL Chloride 113 H (98-107) mmol/L BUN 37 H (9-20) mg/dL Glucose 131 H (74-99) mg/dL POC Glucose (mg/dL) 151 H (75-99) mg/dL Assessment and Plan Plan: Unresponsiveness, suspected secondary to bradycardia with complete heart block Acute hypoxic respiratory failure, on mechanical ventilation Community-acquired pneumonia versus aspiration pneumonia -Status post transvenous pacer for third-degree AV block with bradycardia on 09/08/20, cardiology planning temporary pacer placement today. -Status post bronch with BAL on 09/11, cultures negative -COVID 19 PCR negative -Infectious disease following: Patient on aztreonam, Flagyl, and Fluconazole. Clindamycin changed to vancomycin 09/19 due to persistent leukocytosis. -Echocardiogram unremarkable with LVEF 55-60% and normal LV wall thickness -Started on TPN Acute delirium Quite environment, reorient frequently Precedex gtt Improved Fluid overload now with hypernatremia and elevated BUN D/c lasix Third-degree heart block -Cardiology recommendations. -Cardiology planning temporary pacer placement today Elevated troponin - due to hypoxemia - not consistent with acute coronary syndrome. Hypothyroidism -Continue Synthroid Lactic acidosis, resolved Hyponatremia, resolved Hyperglycemia without known history of diabetes, resolved Acute kidney injury, resolved General weakness PT following DVT prophylaxis: heparin Discussed with: patient, nursing Anticipated discharge: 3 days, Anticipated discharge place: likely will need rehab A total of 25 minutes was spent on the care of this complex patient more than 50% of the time was spent in counseling and care coordination.
[2020-09-20] MEDS ORDERED: MIDAZOLAM 2 MG/2 ML VIAL ONE (11:05)
[2020-09-20] MEDS ORDERED: SODIUM CHLORIDE 0.9% 250 ML IV ONE (11:15)
[2020-09-20] MEDS ORDERED: LIDOCAINE 1% INJ 10MG/ML (20 ML MDV) ONE ×2 (11:20)
[2020-09-20] MEDS ORDERED: IOPAMIDOL-370 50ML BTL INJ ONE (11:40)
[2020-09-20] MEDS ORDERED: LIDOCAINE 1% INJ 10MG/ML (20 ML MDV) SQ ONE (11:46)
--- NOTE | 2020-09-20 12:50 | P.EPPROC ---
- EP Procedure Note Electrophysiology Procedure Note: Diagnosis Persistent complete heart block line status post TVP one week back, 100% RV pacing Patient has pneumonia and sepsis at this time on IV antibiotics Right upper extremity venogram 50 mL IV dye injected in the right arm. Axillary and subclavian vein well opacified. PICC line in place Plan Proceed with externalize pacemaker implantation for prolonged pacing as the patient recovers from pneumonitis Externalized dual-chamber pacemaker implantation, right axillary vein Right pectoral area was prepped and draped per protocol and. Precautions observed. IV antibiotics were administered Right axillary vein access obtained 8-Chinese sheaths placed 2 Atrial lead, passive, Medtronic positioned in the right atrial appendage pacing threshold 0.5 V at 0.4 ms pacing impedance of 947 ohms, P waves 2.8-4 mV Atrial lead, 45 cm model #4574 Medtronic lead, serial number [id number] Screw-in RV lead placed in the RV septum and screwed in. Pacing threshold 0.75 V at 0.4 ms pacing impedance of 804 ohms Screw-in Medtronic lead 52 cm model #5076, serial number [id number] Leads in stable position Secured to the skin Biopatch placed at the insertion site Dressing placed Connected to dual-chamber pacemaker, Medtronic, externalized Pacemaker generator secured to the skin Second dressing applied Pacemaker programmed to DDD 60-1:30 bpm Outputs at 5 V at 1 ms, both ports, atrial and ventricular Procedure 3 Under fluoroscopy, prior transvenous temporary pacemaker lead removed and hemostasis achieved Plan Dual-chamber pacemaker 60 to 130 bpm. No need for reprogramming pacemaker Do not dress the pacemaker site Do not remove dressing Continue IV antibiotics Patient may sit up in bed or in a chair Once patient's pneumonitis has improved and his overall condition as well as coronary status has improved, and internalized dual-chamber pacemaker will be placed from the left side No EKG patches left pectoral area Avoid left IJ and left subclavian access, in preparation for left-sided pacemaker implantation Permanent pacemaker implantation after a few weeks
--- NOTE | 2020-09-20 13:11 | P.PN ---
Subjective Progress Note Date: 09/20/20 Principal diagnosis: Acute hypoxic respiratory failure secondary to pneumonia and fluid overload secondary to third-degree heart block. On 09/10/2020, the patient is being seen for a follow-up. The patient came in to the hospital yesterday and subsequently admitted to the intensive care unit because of difficulty breathing. At a time of arrival to the ED, the patient was discovered to be congestion heart failure and there was also concern for pneumonia/sepsis. Subsequently, the patient developed a third-degree AV block and required intubation mechanical ventilation. Cardiology was consulted. The patient was taken to the [facility] for placement of a temporary venous pacemaker. The patient was brought in back to the intensive care unit intubated on a mechanical ventilator. The patient was sedated and paralyzed with a combination of propofol an endovascular suspected and the patient was requiring pressors including norepinephrine infusion. The patient was also on a bicarb infusion with D5 and 150 mEq of sodium bicarbonate running at 150 mL an hour. IV access was established. The patient was covered with a combination of Azactam, Flagyl and vancomycin as broad-spectrum antibiotic coverage. Chest x-ray showed the possibility of a lower lobe pneumonia bilaterally. As such, the patient was treated for acute hypoxic respiratory failure for the above-mentioned reasons. The patient as mentioned was in a third-degree AV block and required a temporary transvenous pacemaker insertion. The patient was also in acute kidney injury related to above-mentioned comorbidities in addition to a shock liver. Note that the patient's also had a right-sided cardiac cath revealing normal pulmonary artery pressures in the pulmonary capillary wedge pressure was only 14 mmHg , and echocardiogram that was done showed a normal LV systolic function with an ejection fraction of 55-60%, RV was within normal, LAD was within normal limits, mild mitral regurgitation, moderate tricuspid regurgitation and the right posterior systolic pressure was estimated to be 28 mmHg. Noted the patient's cognitive testing came back negative. The white cell count was at 34 at time of admission and came up to 41. The patient had 24% bandemia. The initial blood gases was consistent with severe metabolic acidosis with a pH of 7.03 and a pCO2 of 44 and pO2 of 87. Subsequent blood gases showed improvement and acid base status. The patient was in acute kidney injury with a creatinine of 2.24 and this subsequently improved.. Lactic acid initially was at 6.5 down to 2.9. Troponin peaked at 0.16. ProBNP level was 14,300 and the patient's pro calcitonin level was 25.3. UA was negative. The patient currently has a left IJ triple-lumen catheter in place. He is currently intubated on a mechanical ventilator. He is an assist-control mode with tidal volume of 450, FiO2 of 60% with a PEEP of 15 and a rate of 26. Probable was running at 50 mcg/kg per minute. Nimbex is running at 1.5 mcg/kg per minute. Norepinephrine infusion is running at 0.06 g per kilograms per minute. She is living vital high protein at the rate of 20 mL an hour. The patient is afebrile this morning. The chest x-ray still showing diffuse but the pulmonary infiltrates perihilar and these infiltrates are quite dense.The white cell count is improved and is currently down to 17. The blood gases from today showed a pH of 7.57 with a pCO2 of 31 and pO2 162 as such the patient has developed a combination of respiratory and metabolic alkalosis the renal function is improved in the creatinine is normalized is down to 1.1. His adequate urine output. Lactic acid level is down to 2.4. Cultures are still all. His cardiac rhythm is currently paced at the rate of 60 with an underlying rhythm of third-degree AV block. On 09/11/2020, the patient remains intubated on a mechanical ventilator. This morning, he is on assist control mode at a rate of 26 with a tidal volume of 400 and FiO2 of 50% with a PEEP of 15. The blood gases from this morning showed a pH of 7.46 with a pCO2 of 38 and pO2 of 217. Nevertheless, the chest x-ray still showing bilateral perihilar pulmonary infiltrates with increased consolidation of the lung bases. We are still considering a bacterial pneumonia. The patient's pro calcitonin level was quite elevated and the patient had severe leukocytosis at time of admission. The COVID19 testing 2 came back negative. The patient was covered with a combination of vancomycin, Flagyl, and Azactam. The cultures are all negative. The patient is afebrile fo r now. As mentioned, the white cell count is improving. Meanwhile, his cardiac rhythm is still third-degree AV block is currently paced at the rate of 80 with a transvenous pacemaker through his right IJ. The patient is still on pressors and norepinephrine is running at 0.06 mcg/kg per minute. Urine output is in order of 50 mL an hour and the patient is receiving IV fluids in the form of normal saline today to 100 mL an hour. He is sedated with propofol at 50 mcg/kg per minute. I cell count is down to 14.4. Her lactic acid level was down to 1.6, LFTs are slightly elevated with AST of 137, ALT of 190, serum albumin is at 1.6 and ionized calcium is at 4.6. He is afebrile. He is receiving vital high protein for enteral nutrition today to 45 mL an hour. Patient was reevaluated today on 09/17/2020, patient remains in the ICU, he is being treated for pneumonia and sepsis. Remains on Diflucan, Azactam, and Flagyl. Patient is being treated for presumptive aspiration pneumonia and is also being treated for fluid overload which was felt to be related to his third- degree AV block requiring temporary pacemaker implantation. Patient is intermittently on BiPAP, with IPAP of 12 and EPAP of 5, and 40% FiO2, however he is presently on few liters nasal cannula and seems to be saturating in the mid 90s. Patient was intubated on 09/08 until 09/13. Still being followed by cardiology for potential permanent pacemaker implantation. Presently he is fully paced I his temporary pacemaker. Underwent a bronchoscopy on 09/11, it is nondiagnostic, no specific cultures have been noted. Chest x-ray continues to show bilateral, multifocal interstitial infiltrates basic metabolic profile is normal electrolytes are normal potassium is a bit low at 3.4. Continues to have leukocytosis with WBC count of 23.4 hemoglobin is 10.9. Renal profile is relatively unremarkable however BUN is elevated at 46 and creatinine is 0.85. Reevaluated today on 09/18/2020, patient remains in the ICU, developed significant amount of agitation yesterday, and I had to place the patient on Precedex, 0.2 mcg/kg per hour. Tolerated that quite well, and his symptoms of agitation have significantly improved. Patient is also on IV fluid at 40 mL per hour. He is 100% paced, however his intrinsic rate is in the 30s, patient continues to have third-degree AV block. Patient is scheduled to have permanent pacemaker implantation tomorrow. Chest x-ray continues to show bilateral airspace disease consistent with aspiration. Remains on the Flagyl Diflucan and Azactam. Patient is having issues with swallowing clear liquids, and he is supposed to be given only sick liquids because of potential aspiration with clear liquids. Or thin liquids. Patient will have a pacemaker implanted tomorrow, however he has a left subclavian central line on the left side, and may have to discontinue the central line, and I will arrange for a midline or a PICC line. CBC count today is 19.4. Hemoglobin is 11.0, rest of the labs were noted to be unremarkable, sodium is at the time at 147 and his main IV fluids changed to D5W. BUN is 53 creatinine 0.90. Patient was reevaluated today on 09/19/2020, patient remains in the ICU, remains on Precedex at 0.15 mcg/kg per hour. Patient is on TPN, given via PICC line. Remains on antibiotics for aspiration pneumonia including Azactam and Flagyl and clindamycin. Intermittently on BiPAP with IPAP of 12 EPAP of 5, presently on 11 L high flow nasal cannula. Chest x-ray continues to show bilateral airspace disease right upper lobe and left midlung involvement. Continues to have third- degree AV block and with was taken off the temporary pacemaker, patient was noted to have even asystole. He is pacemaker dependent. Patient is scheduled to have a temporary pacemaker/external to be done tomorrow no clear-cut reason why the patient could not have permanent pacemaker implantation. At any rate pulmonary-min the patient continues to gradually improve, and remains empirically on antibiotics, no specific cultures were noted to be positive. CBC continues to show leukocytosis with WBC of 23.5 hemoglobin is 11.9 electrolytes are normal except for elevated sodium of 147. Reevaluated today on 09/20/2020, patient remains in the ICU, remains on Precedex at 0.15 mcg/kg/h, remains on TPN, IV fluid is at KVO. Chest x-ray continues to show bilateral airspace disease. His antibiotics coverage was increased by infectious disease on the case, he is presently on vancomycin and Flagyl Diflucan and Azactam. Patient remains 100% paced. Going for another pacemaker implantation today. Patient is on 10 L high flow nasal cannula, does not seem to be in distress, but on physical examination he has rhonchi and wheezes bilaterally. And I recommended more diuretics to be given to the patient, he is now on Lasix 40 mg IV push every 12 hours. Objective - Vital Signs Vital signs: Vital Signs Temp 98.1 F 09/20/20 08:00 Pulse 69 09/20/20 09:00 Resp 27 H 09/20/20 09:00 BP 129/67 09/20/20 09:00 Pulse Ox 95 09/20/20 09:00 Intake & Output 09/19/20 09/20/20 09/20/20 18:59 06:59 18:59 Intake Total 1707.2 1120.83 684 Output Total 1175 1450 600 Balance 532.2 -329.17 84 Weight 85.3 kg Intake: IV 1707.2 1120.83 684 Aztreonam 2 gm In Sodium 100 100 100 Chloride 0.9% 100 ml @ 33 .3 mls/hr IVPB Q8HR [facility] Rx#:[id number] Dextrose 5% in Water 1, 700 400 000 ml @ 50 mls/hr IV . Q20H [facility] Rx#:[id number] Fat Emulsion 20% 250 ml @ 187.2 20.83 84 20.833 mls/hr IV DAILY [facility] Rx#:[id number] Fluconazole in NaCl,Iso- 100 100 Osm 200 mg In Saline 1 100ml.bag @ 100 mls/hr IVPB DAILY@1200 [facility] Rx#: [id number] Potassium Phosphate 30 450 300 mmol Magnesium Sulfate gm 1 gm Calcium Gluconate 1 gm In Amino Acids 5 %/ Dextrose 20 % 1,000 ml @ 75 mls/hr IV .BY DURATION [facility] Rx#:[id number] Potassium Phosphate 30 420 150 mmol Magnesium Sulfate gm 1 gm Calcium Gluconate 1 gm Mvi, Adult No.4 with Vit K 10 ml Trace (Conc- 1Ml/Dose) 1 ml In Amino Acids 5 %/Dextrose 20 % 1 ,000 ml @ 30 mls/hr IV . Q24H [facility] Rx#:[id number] metroNIDAZOLE-NS PMX 500 200 100 mg In Saline 1 100ml.bag @ 100 mls/hr IVPB Q8H [facility] Rx#:[id number] Output: Urine 1175 1450 600 Other: Voiding Method Indwelling Catheter Indwelling Catheter ABP, PAP, CO, CI - Last Documented Arterial Blood Pressure 71/59 - Exam Gen: Revealed 74-year-old white male in no distress. On 10 L high flow nasal cannula. HEENT: normocephalic, atraumatic, PERRLA, nonicteric. EOMI. Resp: Symmetrical chest expansion rhonchi crackles and wheezes noted bilaterally.. CVS: Normal S1 and S2, no S3 gallop. No murmur. GI: Soft nontender no megaly no rebound, large ventral hernia is noted. : Bae catheter is present otherwise negative. MSK: 1+ bipedal edema. Neuro: Alert and oriented 3 focal neurologic deficits. Psych: Normal mood, affect and normal mental status examination today. - Labs CBC & Chem 7: 09/20/20 03:53 09/20/20 03:53 Labs: Abnormal Lab Results - Last 24 Hours (Table) 09/19/20 09/19/20 09/20/20 Range/Units 17:23 23:27 03:53 WBC (3.8-10.6) k/uL RBC (4.30-5.90) m/uL Hgb (13.0-17.5) gm/dL Hct (39.0-53.0) % MCHC (31.0-37.0) g/dL Plt Count (150-450) k/uL Chloride 113 H (98-107) mmol/L BUN 37 H (9-20) mg/dL Glucose 131 H (74-99) mg/dL POC Glucose (mg/dL) 127 H 144 H (75-99) mg/dL 09/20/20 09/20/20 Range/Units 03:53 06:43 WBC 19.2 H (3.8-10.6) k/uL RBC 3.68 L (4.30-5.90) m/uL Hgb 11.1 L (13.0-17.5) gm/dL Hct 36.2 L (39.0-53.0) % MCHC 30.6 L (31.0-37.0) g/dL Plt Count 548 H (150-450) k/uL Chloride (98-107) mmol/L BUN (9-20) mg/dL Glucose (74-99) mg/dL POC Glucose (mg/dL) 151 H (75-99) mg/dL Assessment and Plan Assessment: Impression: Acute hypoxic respiratory failure secondary to pneumonia, likely aspiration unle ss proven otherwise. Acute complete heart block requiring temporary pacemaker implantation. Severe metabolic acidosis, resolved. Acute kidney injury secondary to acute tubular necrosis. Dyslipidemia. Hypothyroidism. Intermittent episodes of confusion secondary to acute metabolic encephalopathy, improving. Acute toxic metabolic encephalopathy and intermittent confusion, improved with Precedex. Recommendation: Continue antibiotics as per infectious disease on the case. Continue to monitor the patient in the ICU and titrate oxygen accordingly. Considering the patient continues to have airspace disease, will give the patient trial of diuresis. Although the findings are mostly inflammatory in n ature. Cardiology to decide on permanent pacemaker implantation. Titrate oxygen accordingly. Continue to monitor daily labs. Continue nutritional support/TPN via PICC line. Patient is having some difficulty with swallowing and concern about aspiration. We'll continue to follow. Time with Patient: Less than 30
[2020-09-20] MEDS: VANCOMYCIN 1,250 MG in SODIUM CHLORIDE 0.9% 250 ML IVPB SCH ×2 (13:14→20:57)
[2020-09-20] MEDS: FLUCONAZOLE IN NACL,ISO-OSM 200 MG in SALINE 1 100ML.BAG IVPB SCH (13:16)
[2020-09-20] MEDS: FUROSEMIDE 10 MG/ML 4 ML VIAL IV SCH ×2 (13:30→20:58)
[2020-09-20 18:03] LABS: Glucose,Whole Blood 159 mg/dL (75-99)
[2020-09-20] MEDS: HALOPERIDOL LACTATE 5 MG/ML 1 ML VIAL IVP PRN (18:28)
--- NOTE | 2020-09-20 22:30 | PN ---
PROGRESS NOTE DATE OF SERVICE: 09/20/2020 REASON FOR FOLLOWUP: Aspiration pneumonia with elevated white count. INTERVAL HISTORY: The patient is currently afebrile. This patient is status post removal of his temporary venous pacer and placement of externalized dual-chamber pacemaker implantation, right vein. The patient has tolerated the procedure. The patient currently denies having any chest pain. No shortness of breath. Minimal cough. No abdominal pain. No diarrhea. EXAMINATION: Blood pressure 107/57, pulse of 96, temperature is 99. He is 93% on high-flow oxygen. General description is an elderly male lying in bed in no distress. Respiratory system: Unlabored breathing, decreased breath sounds at the base. No wheeze. HEART: S1, S2. Regular rate and rhythm. ABDOMEN: Soft, no tenderness. LAB DATA: Hemoglobin 11.1, white count 19.2, BUN of 37, creatinine 0.68. Cultures have been negative so far. DIAGNOSTIC IMPRESSION AND PLAN: Patient admitted to the hospital with unresponsiveness and acute respiratory failure related to possible component of aspiration pneumonia in this patient requiring a transvenous pacer for his heart block. The patient is currently covered with Azactam, Flagyl, vancomycin because of his allergy. White count showing a downward trend and monitor clinical course closely. MMODL / IJN: [id number] /
[2020-09-20] MEDS: DEXMEDETOMIDINE/0.9% NACL(PMX) 400 MCG in EMPTY BAG 1 BAG IV SCH (22:44)
[2020-09-20 23:29] LABS: Glucose,Whole Blood 174 mg/dL (75-99)
[2020-09-21 05:25] LABS: HCT 34.1 % (39.0-53.0); HGB 11.3 gm/dL (13.0-17.5); Hypochromasia Slight; MCHC 33.2 g/dL (31.0-37.0); MCV 96.3 fL (80.0-100.0); Mean Platelet Volume 8.4; Platelet Count 582 k/uL (150-450); RBC 3.54 m/uL (4.30-5.90); RDW 14.5 % (11.5-15.5); WBC 19.4 k/uL (3.8-10.6)
[2020-09-21] MEDS: [UNRECOGNIZED DRUG - OTHER] IV SCH ×24 (05:32→22:02)
[2020-09-21] MEDS: CALCIUM GLUCONATE IV SCH ×24 (05:32→22:02)
[2020-09-21] MEDS: POTASSIUM PHOSPHATE IV SCH ×24 (05:32→22:02)
[2020-09-21] MEDS: MAGNESIUM SULFATE IV SCH ×24 (05:32→22:02)
[2020-09-21 05:46] LABS: African American GFR (CKD) >90 (>60 ml/min/1.73 sqM); Anion Gap 7 mmol/L; Blood Urea Nitrogen 35 mg/dL (9-20); Calcium 8.5 mg/dL (8.4-10.2); Carbon Dioxide 25 mmol/L (22-30); Chloride 109 mmol/L (98-107); Glucose 127 mg/dL (74-99); Magnesium 2.1 mg/dL (1.6-2.3); Non-African American GFR(CKD) >90 (>60 ml/min/1.73 sqM); Phosphorus 4.5 mg/dL (2.5-4.5); Sodium 141 mmol/L (137-145)
[2020-09-21 05:59] LABS: Potassium 4.4 mmol/L (3.5-5.1)
[2020-09-21 06:29] LABS: Glucose,Whole Blood 132 mg/dL (75-99)
[2020-09-21] MEDS: INSULIN ASPART (NovoLOG) 100 UNIT/ML VIAL SQ SCH ×3 (06:40→17:02)
[2020-09-21] MEDS: LEVOTHYROXINE 112 MCG TAB PO SCH (06:41)
[2020-09-21] MEDS: metroNIDAZOLE-NS PMX 500 MG in SALINE 1 100ML.BAG IVPB SCH ×3 (06:48→23:58)
[2020-09-21] MEDS: IPRATROPIUM-ALBUTEROL 3 ML NEB INHALATION SCH ×4 (06:57→17:59)
[2020-09-21] MEDS: AZTREONAM 2 GM in SODIUM CHLORIDE 0.9% 100 ML IVPB SCH ×2 (08:52→15:19)
[2020-09-21] MEDS: FUROSEMIDE 10 MG/ML 4 ML VIAL IV SCH ×2 (08:52→20:21)
[2020-09-21] MEDS: FAT EMULSION 20% 250 ML IV SCH (08:52)
[2020-09-21] MEDS: HEPARIN SODIUM,PORCINE 5,000 UNIT/ML 1 ML VIAL SQ SCH ×3 (08:53→23:58)
[2020-09-21] MEDS: methylPREDNISolone SOD SUCCI 40 MG/ML 1 ML VIAL IV SCH ×3 (08:55→23:58)
--- NOTE | 2020-09-21 09:14 | XR ---
EXAMINATION TYPE: XR chest 1V portable DATE OF EXAM: 09/21/2020 COMPARISON: 09/20/2020 HISTORY: Cough TECHNIQUE: Single frontal view of the chest is obtained. FINDINGS: Lung apices limited by positioning. A pacemaker is seen proximal lead overlying the right atrium and distal lead overlying the right ventricle. Bilateral pleural effusion and multifocal conso lidation is seen. No sizable pneumothorax. Hypertrophic and degenerative change of the spine. Right-s ided PICC line stable in position. IMPRESSION: 1. Airspace disease and pleural effusions are stable with no significant interval change.
--- NOTE | 2020-09-21 09:39 | PN ---
PROGRESS NOTE Mr. Sheehan is a 74-year-old male who presented with a syncopal episode and evidence of aspiration pneumonia. He had complete heart block and underwent temporary pacemaker yesterday that was exchanged to an externalized dual-chamber pacemaker. He is doing well. He is more awake and alert. He denies any symptoms of chest pain. He denies any dizziness or palpitation. He denies any nausea. He is feeling better overall. He continues to be at this time on Lasix 40 mg IV q.12 hours in addition to his antibiotics. PHYSICAL EXAMINATION: Blood pressure 123/60 with the heart rate in the 90s. LUNGS: With decreased breath sounds. No wheezes. HEART: Regular rate and rhythm. S1, S2. No S3. No rub. ABDOMEN: Soft, nontender. EXTREMITIES: No significant edema. LAB DATA: Lab data revealed BUN and creatinine 35 and 0.63, 11.3, white blood cell of 19.4. IMPRESSION: 1. Complete heart block, status post temporary externalized pacemaker. 2. Aspiration pneumonia with persistent leukocytosis, improving gradually. 3. Confusion, improving. 4. Acute kidney injury. 5. Malnutrition. RECOMMENDATION: From the cardiac standpoint, will continue present therapy. Continue to follow his lab data. Increase his activity. Once his leukocytosis resolves then the patient can be evaluated for internal chronic pacemaker. MMODL / MERVINN: [id number] /
[2020-09-21] MEDS ORDERED: VANCOMYCIN TROUGH DUE 1 EACH MISC MISCELLANE ONE (10:00)
[2020-09-21 11:29] LABS: Glucose,Whole Blood 174 mg/dL (75-99)
[2020-09-21] MEDS: VANCOMYCIN 1,500 MG in SODIUM CHLORIDE 0.9% 250 ML IVPB SCH ×2 (11:34→20:20)
[2020-09-21] MEDS: FLUCONAZOLE IN NACL,ISO-OSM 200 MG in SALINE 1 100ML.BAG IVPB SCH (11:37)
--- NOTE | 2020-09-21 12:41 | P.PN ---
Subjective Progress Note Date: 09/21/20 Principal diagnosis: Respiratory failure Patient is still not eating. He was not cooperative with his yesterday. He is not cooperative with the staff either. He is refusing to eat or drink. He has some bouts of confusion last night where he had to be given some halodol. RN reported aspiration and coughing even with ice chips. Objective - Vital Signs Vital signs: Vital Signs Temp 99 F 09/21/20 08:00 Pulse 88 09/21/20 11:17 Resp 12 09/21/20 10:00 BP 107/67 09/21/20 10:00 Pulse Ox 97 09/21/20 10:00 Intake & Output 09/20/20 09/21/20 09/21/20 18:59 06:59 18:59 Intake Total 2636 2317.936 445 Output Total 2125 1835 575 Balance 511 482.936 -130 Weight 85.2 kg 85.2 kg Intake: IV 1614 1606 445 Aztreonam 2 gm In Sodium 200 Chloride 0.9% 100 ml @ 33 .3 mls/hr IVPB Q8HR [facility] Rx#:[id number] Aztreonam 2 gm In Sodium 200 100 Chloride 0.9% 100 ml @ 33 .3 mls/hr IVPB Q8HR [facility] Rx#:[id number] Fat Emulsion 20% 250 ml @ 189 61 40 20.833 mls/hr IV DAILY [facility] Rx#:[id number] Fluconazole in NaCl,Iso- 100 Osm 200 mg In Saline 1 100ml.bag @ 100 mls/hr IVPB DAILY@1200 [facility] Rx#: [id number] Lactated Ringers 1,000 ml 170 80 @ 20 mls/hr IV .Q24H [facility] Rx#:[id number] Potassium Phosphate 30 675 825 225 mmol Magnesium Sulfate gm 1 gm Calcium Gluconate 1 gm In Amino Acids 5 %/ Dextrose 20 % 1,000 ml @ 75 mls/hr IV .BY DURATION [facility] Rx#:[id number] Vancomycin 1,250 mg In 250 Sodium Chloride 0.9% 250 ml @ 125 mls/hr IVPB Q12H [facility] Rx#:[id number] Vancomycin 1,250 mg In 250 Sodium Chloride 0.9% 250 ml @ 125 mls/hr IVPB Q12H [facility] Rx#:[id number] metroNIDAZOLE-NS PMX 500 200 100 mg In Saline 1 100ml.bag @ 100 mls/hr IVPB Q8H [facility] Rx#:[id number] Intake, IV Titration 1022 711.936 Amount Dexmedetomidine/0.9% NaCl 13.186 (Pmx) 400 mcg In Empty Bag 1 bag @ Titrate IV . Q0M [facility] Rx#:[id number] Potassium Phosphate 30 1022 698.75 mmol Magnesium Sulfate gm 1 gm Calcium Gluconate 1 gm In Amino Acids 5 %/ Dextrose 20 % 1,000 ml @ 75 mls/hr IV .BY DURATION [facility] Rx#:[id number] Output: Urine 2125 1835 575 Other: Voiding Method Indwelling Catheter Indwelling Catheter ABP, PAP, CO, CI - Last Documented Arterial Blood Pressure 71/59 - Exam Gen: No acute distress. HEENT: normocephalic, atraumatic, good hearing acuity, moist mucous membranes Resp: Coarse breath sounds bilaterally CVS: RRR, S1 and S2 normal. good distal perfusion x 4, no appreciable murmurs GI: soft, NTTP, ND. Large ventral hernia. : no SPT, no CVAT, torre catheter is present MSK: 1+ pitting edema, no clubbing Neuro: non-focal, moving all extremities Psych: confused. Disoriented. - Labs CBC & Chem 7: 09/21/20 04:27 09/21/20 04:27 Labs: Abnormal Lab Results - Last 24 Hours (Table) 09/20/20 09/20/20 09/21/20 Range/Units 18:02 23:27 04:27 WBC (3.8-10.6) k/uL RBC (4.30-5.90) m/uL Hgb (13.0-17.5) gm/dL Hct (39.0-53.0) % Plt Count (150-450) k/uL Chloride 109 H (98-107) mmol/L BUN 35 H (9-20) mg/dL Creatinine 0.63 L (0.66-1.25) mg/dL Glucose 127 H (74-99) mg/dL POC Glucose (mg/dL) 159 H 174 H (75-99) mg/dL 09/21/20 09/21/20 09/21/20 Range/Units 04:27 06:27 11:27 WBC 19.4 H (3.8-10.6) k/uL RBC 3.54 L (4.30-5.90) m/uL Hgb 11.3 L (13.0-17.5) gm/dL Hct 34.1 L (39.0-53.0) % Plt Count 582 H (150-450) k/uL Chloride (98-107) mmol/L BUN (9-20) mg/dL Creatinine (0.66-1.25) mg/dL Glucose (74-99) mg/dL POC Glucose (mg/dL) 132 H 174 H (75-99) mg/dL Assessment and Plan Plan: Unresponsiveness, suspected secondary to bradycardia with complete heart block Acute hypoxic respiratory failure, on mechanical ventilation Community-acquired pneumonia versus aspiration pneumonia -Status post transvenous pacer for third-degree AV block with bradycardia on 09/08/20, s/p placement of temporary pacer. -Status post bronch with BAL on 09/11, cultures negative -COVID 19 PCR negative -Infectious disease following: Patient on aztreonam, Flagyl, and Fluconazole. Clindamycin changed to vancomycin 09/19 due to persistent leukocytosis. -Echocardiogram unremarkable with LVEF 55-60% and normal LV wall thickness Chronic aspiration/moderate severe malnutrition Being followed by speech therapy Started on TPN Discussed with , she is okay with proceeding to a feeding tube if necessary. Acute delirium/agitation Quite environment, reorient frequently Precedex gtt Haldol when necessary Improved Fluid overload Continue lasix Third-degree heart block -Cardiology recommendations. -Temporary pacer placed Elevated troponin - due to hypoxemia - not consistent with acute coronary syndrome. Hypothyroidism -Continue Synthroid Lactic acidosis, resolved Hyponatremia, resolved Hyperglycemia without known history of diabetes, resolved Acute kidney injury, resolved General weakness PT following DVT prophylaxis: heparin Discussed with: patient, nursing Anticipated discharge: 3 days, Anticipated discharge place: likely will need rehab A total of 25 minutes was spent on the care of this complex patient more than 50% of the time was spent in counseling and care coordination.
--- NOTE | 2020-09-21 12:52 | P.PN ---
Subjective Progress Note Date: 09/21/20 Principal diagnosis: Acute hypoxic respiratory failure secondary to pneumonia and fluid overload secondary to third-degree heart block. On 09/10/2020, the patient is being seen for a follow-up. The patient came in to the hospital yesterday and subsequently admitted to the intensive care unit because of difficulty breathing. At a time of arrival to the ED, the patient was discovered to be congestion heart failure and there was also concern for pneumonia/sepsis. Subsequently, the patient developed a third-degree AV block and required intubation mechanical ventilation. Cardiology was consulted. The patient was taken to the [facility] for placement of a temporary venous pacemaker. The patient was brought in back to the intensive care unit intubated on a mechanical ventilator. The patient was sedated and paralyzed with a combination of propofol an endovascular suspected and the patient was requiring pressors including norepinephrine infusion. The patient was also on a bicarb infusion with D5 and 150 mEq of sodium bicarbonate running at 150 mL an hour. IV access was established. The patient was covered with a combination of Azactam, Flagyl and vancomycin as broad-spectrum antibiotic coverage. Chest x-ray showed the possibility of a lower lobe pneumonia bilaterally. As such, the patient was treated for acute hypoxic respiratory failure for the above-mentioned reasons. The patient as mentioned was in a third-degree AV block and required a temporary transvenous pacemaker insertion. The patient was also in acute kidney injury related to above-mentioned comorbidities in addition to a shock liver. Note that the patient's also had a right-sided cardiac cath revealing normal pulmonary artery pressures in the pulmonary capillary wedge pressure was only 14 mmHg , and echocardiogram that was done showed a normal LV systolic function with an ejection fraction of 55-60%, RV was within normal, LAD was within normal limits, mild mitral regurgitation, moderate tricuspid regurgitation and the right posterior systolic pressure was estimated to be 28 mmHg. Noted the patient's cognitive testing came back negative. The white cell count was at 34 at time of admission and came up to 41. The patient had 24% bandemia. The initial blood gases was consistent with severe metabolic acidosis with a pH of 7.03 and a pCO2 of 44 and pO2 of 87. Subsequent blood gases showed improvement and acid base status. The patient was in acute kidney injury with a creatinine of 2.24 and this subsequently improved.. Lactic acid initially was at 6.5 down to 2.9. Troponin peaked at 0.16. ProBNP level was 14,300 and the patient's pro calcitonin level was 25.3. UA was negative. The patient currently has a left IJ triple-lumen catheter in place. He is currently intubated on a mechanical ventilator. He is an assist-control mode with tidal volume of 450, FiO2 of 60% with a PEEP of 15 and a rate of 26. Probable was running at 50 mcg/kg per minute. Nimbex is running at 1.5 mcg/kg per minute. Norepinephrine infusion is running at 0.06 g per kilograms per minute. She is living vital high protein at the rate of 20 mL an hour. The patient is afebrile this morning. The chest x-ray still showing diffuse but the pulmonary infiltrates perihilar and these infiltrates are quite dense.The white cell count is improved and is currently down to 17. The blood gases from today showed a pH of 7.57 with a pCO2 of 31 and pO2 162 as such the patient has developed a combination of respiratory and metabolic alkalosis the renal function is improved in the creatinine is normalized is down to 1.1. His adequate urine output. Lactic acid level is down to 2.4. Cultures are still all. His cardiac rhythm is currently paced at the rate of 60 with an underlying rhythm of third-degree AV block. On 09/11/2020, the patient remains intubated on a mechanical ventilator. This morning, he is on assist control mode at a rate of 26 with a tidal volume of 400 and FiO2 of 50% with a PEEP of 15. The blood gases from this morning showed a pH of 7.46 with a pCO2 of 38 and pO2 of 217. Nevertheless, the chest x-ray still showing bilateral perihilar pulmonary infiltrates with increased consolidation of the lung bases. We are still considering a bacterial pneumonia. The patient's pro calcitonin level was quite elevated and the patient had severe leukocytosis at time of admission. The COVID19 testing 2 came back negative. The patient was covered with a combination of vancomycin, Flagyl, and Azactam. The cultures are all negative. The patient is afebrile fo r now. As mentioned, the white cell count is improving. Meanwhile, his cardiac rhythm is still third-degree AV block is currently paced at the rate of 80 with a transvenous pacemaker through his right IJ. The patient is still on pressors and norepinephrine is running at 0.06 mcg/kg per minute. Urine output is in order of 50 mL an hour and the patient is receiving IV fluids in the form of normal saline today to 100 mL an hour. He is sedated with propofol at 50 mcg/kg per minute. I cell count is down to 14.4. Her lactic acid level was down to 1.6, LFTs are slightly elevated with AST of 137, ALT of 190, serum albumin is at 1.6 and ionized calcium is at 4.6. He is afebrile. He is receiving vital high protein for enteral nutrition today to 45 mL an hour. Patient was reevaluated today on 09/17/2020, patient remains in the ICU, he is being treated for pneumonia and sepsis. Remains on Diflucan, Azactam, and Flagyl. Patient is being treated for presumptive aspiration pneumonia and is also being treated for fluid overload which was felt to be related to his third- degree AV block requiring temporary pacemaker implantation. Patient is intermittently on BiPAP, with IPAP of 12 and EPAP of 5, and 40% FiO2, however he is presently on few liters nasal cannula and seems to be saturating in the mid 90s. Patient was intubated on 09/08 until 09/13. Still being followed by cardiology for potential permanent pacemaker implantation. Presently he is fully paced I his temporary pacemaker. Underwent a bronchoscopy on 09/11, it is nondiagnostic, no specific cultures have been noted. Chest x-ray continues to show bilateral, multifocal interstitial infiltrates basic metabolic profile is normal electrolytes are normal potassium is a bit low at 3.4. Continues to have leukocytosis with WBC count of 23.4 hemoglobin is 10.9. Renal profile is relatively unremarkable however BUN is elevated at 46 and creatinine is 0.85. Reevaluated today on 09/18/2020, patient remains in the ICU, developed significant amount of agitation yesterday, and I had to place the patient on Precedex, 0.2 mcg/kg per hour. Tolerated that quite well, and his symptoms of agitation have significantly improved. Patient is also on IV fluid at 40 mL per hour. He is 100% paced, however his intrinsic rate is in the 30s, patient continues to have third-degree AV block. Patient is scheduled to have permanent pacemaker implantation tomorrow. Chest x-ray continues to show bilateral airspace disease consistent with aspiration. Remains on the Flagyl Diflucan and Azactam. Patient is having issues with swallowing clear liquids, and he is supposed to be given only sick liquids because of potential aspiration with clear liquids. Or thin liquids. Patient will have a pacemaker implanted tomorrow, however he has a left subclavian central line on the left side, and may have to discontinue the central line, and I will arrange for a midline or a PICC line. CBC count today is 19.4. Hemoglobin is 11.0, rest of the labs were noted to be unremarkable, sodium is at the time at 147 and his main IV fluids changed to D5W. BUN is 53 creatinine 0.90. Patient was reevaluated today on 09/19/2020, patient remains in the ICU, remains on Precedex at 0.15 mcg/kg per hour. Patient is on TPN, given via PICC line. Remains on antibiotics for aspiration pneumonia including Azactam and Flagyl and clindamycin. Intermittently on BiPAP with IPAP of 12 EPAP of 5, presently on 11 L high flow nasal cannula. Chest x-ray continues to show bilateral airspace disease right upper lobe and left midlung involvement. Continues to have third- degree AV block and with was taken off the temporary pacemaker, patient was noted to have even asystole. He is pacemaker dependent. Patient is scheduled to have a temporary pacemaker/external to be done tomorrow no clear-cut reason why the patient could not have permanent pacemaker implantation. At any rate pulmonary-min the patient continues to gradually improve, and remains empirically on antibiotics, no specific cultures were noted to be positive. CBC continues to show leukocytosis with WBC of 23.5 hemoglobin is 11.9 electrolytes are normal except for elevated sodium of 147. Reevaluated today on 09/20/2020, patient remains in the ICU, remains on Precedex at 0.15 mcg/kg/h, remains on TPN, IV fluid is at KVO. Chest x-ray continues to show bilateral airspace disease. His antibiotics coverage was increased by infectious disease on the case, he is presently on vancomycin and Flagyl Diflucan and Azactam. Patient remains 100% paced. Going for another pacemaker implantation today. Patient is on 10 L high flow nasal cannula, does not seem to be in distress, but on physical examination he has rhonchi and wheezes bilaterally. And I recommended more diuretics to be given to the patient, he is now on Lasix 40 mg IV push every 12 hours. Reevaluated today on, patient remains in the ICU, patient had his external temporary pacemaker placed yesterday. Today continues to have significantdisease involving the right upper lobe and the left midlung as well as left lower lobe. Patient continues to have difficulty swallowing, and he remains on TPN, hence I recommended surgical evaluation for possible PEG tube placement. Remains on multiple antibiotics for his aspiration pneumonia. Solu- Medrol was added for his cough and wheezing. Remains on Precedex which I plan to discontinue hopefully today. Patient is intermittently on BiPAP with IPAP of 12 EPAP of 5 and FiO2 60%, presently on 11 L high flow nasal cannula with O2 saturation 94%. Objective - Vital Signs Vital signs: Vital Signs Temp 99 F 09/21/20 08:00 Pulse 88 09/21/20 11:17 Resp 12 09/21/20 10:00 BP 107/67 09/21/20 10:00 Pulse Ox 97 09/21/20 10:00 Intake & Output 09/20/20 09/21/20 09/21/20 18:59 06:59 18:59 Intake Total 2636 2317.936 445 Output Total 2125 1835 575 Balance 511 482.936 -130 Weight 85.2 kg 85.2 kg Intake: IV 1614 1606 445 Aztreonam 2 gm In Sodium 200 Chloride 0.9% 100 ml @ 33 .3 mls/hr IVPB Q8HR [facility] Rx#:[id number] Aztreonam 2 gm In Sodium 200 100 Chloride 0.9% 100 ml @ 33 .3 mls/hr IVPB Q8HR [facility] Rx#:[id number] Fat Emulsion 20% 250 ml @ 189 61 40 20.833 mls/hr IV DAILY [facility] Rx#:[id number] Fluconazole in NaCl,Iso- 100 Osm 200 mg In Saline 1 100ml.bag @ 100 mls/hr IVPB DAILY@1200 [facility] Rx#: [id number] Lactated Ringers 1,000 ml 170 80 @ 20 mls/hr IV .Q24H [facility] Rx#:[id number] Potassium Phosphate 30 675 825 225 mmol Magnesium Sulfate gm 1 gm Calcium Gluconate 1 gm In Amino Acids 5 %/ Dextrose 20 % 1,000 ml @ 75 mls/hr IV .BY DURATION [facility] Rx#:[id number] Vancomycin 1,250 mg In 250 Sodium Chloride 0.9% 250 ml @ 125 mls/hr IVPB Q12H [facility] Rx#:[id number] Vancomycin 1,250 mg In 250 Sodium Chloride 0.9% 250 ml @ 125 mls/hr IVPB Q12H [facility] Rx#:[id number] metroNIDAZOLE-NS PMX 500 200 100 mg In Saline 1 100ml.bag @ 100 mls/hr IVPB Q8H [facility] Rx#:[id number] Intake, IV Titration 1022 711.936 Amount Dexmedetomidine/0.9% NaCl 13.186 (Pmx) 400 mcg In Empty Bag 1 bag @ Titrate IV . Q0M [facility] Rx#:[id number] Potassium Phosphate 30 1022 698.75 mmol Magnesium Sulfate gm 1 gm Calcium Gluconate 1 gm In Amino Acids 5 %/ Dextrose 20 % 1,000 ml @ 75 mls/hr IV .BY DURATION [facility] Rx#:[id number] Output: Urine 2125 1835 575 Other: Voiding Method Indwelling Catheter Indwelling Catheter ABP, PAP, CO, CI - Last Documented Arterial Blood Pressure 71/59 - Exam Gen: Revealed 74-year-old white male in no distress. On 11 L high flow nasal cannula. HEENT: normocephalic, atraumatic, PERRLA, nonicteric. EOMI. Resp: Symmetrical chest expansion rhonchi crackles and wheezes noted bilaterally.. CVS: Normal S1 and S2, no S3 gallop. No murmur. GI: Soft nontender no megaly no rebound, large ventral hernia is noted. : Bae catheter is present otherwise negative. MSK: 1+ bipedal edema. Neuro: Alert and oriented 3 focal neurologic deficits. Psych: Normal mood, affect and normal mental status examination today. - Labs CBC & Chem 7: 09/21/20 04:27 09/21/20 04:27 Labs: Abnormal Lab Results - Last 24 Hours (Table) 09/20/20 09/20/20 09/21/20 Range/Units 18:02 23:27 04:27 WBC (3.8-10.6) k/uL RBC (4.30-5.90) m/uL Hgb (13.0-17.5) gm/dL Hct (39.0-53.0) % Plt Count (150-450) k/uL Chloride 109 H (98-107) mmol/L BUN 35 H (9-20) mg/dL Creatinine 0.63 L (0.66-1.25) mg/dL Glucose 127 H (74-99) mg/dL POC Glucose (mg/dL) 159 H 174 H (75-99) mg/dL 09/21/20 09/21/20 09/21/20 Range/Units 04:27 06:27 11:27 WBC 19.4 H (3.8-10.6) k/uL RBC 3.54 L (4.30-5.90) m/uL Hgb 11.3 L (13.0-17.5) gm/dL Hct 34.1 L (39.0-53.0) % Plt Count 582 H (150-450) k/uL Chloride (98-107) mmol/L BUN (9-20) mg/dL Creatinine (0.66-1.25) mg/dL Glucose (74-99) mg/dL POC Glucose (mg/dL) 132 H 174 H (75-99) mg/dL Assessment and Plan Assessment: Impression: Acute hypoxic respiratory failure secondary to pneumonia, likely aspiration unless proven otherwise. Acute complete heart block requiring temporary pacemaker implantation. Severe metabolic acidosis, resolved. Acute kidney injury secondary to acute tubular necrosis. Dyslipidemia. Hypothyroidism. Intermittent episodes of confusion secondary to acute metabolic encephalopathy, improving. Acute toxic metabolic encephalopathy and intermittent confusion, improved with Precedex. Dysphagia, patient unable to swallow, hence would recommend PEG tube placement Recommendation: Continue antibiotics as per infectious disease on the case. Continue to monitor the patient in the ICU and titrate oxygen accordingly. Considering the patient continues to have airspace disease, continue antibiotics and added steroids today Surgical consultation for possible PEG tube placement. Titrate oxygen accordingly. Continue to monitor daily labs. Continue nutritional support/TPN via PICC line. Patient is having some difficulty with swallowing and concern about aspiration. We'll continue to follow. Time with Patient: Less than 30
--- NOTE | 2020-09-21 13:21 | P.GSCN ---
History of Present Illness Consult date: 09/21/20 History of present illness: CHIEF COMPLAINT: Respiratory failure HISTORY OF PRESENT ILLNESS: This is a 74-year-old male who was admitted to the hospital on 09/08/2020 for acute hypoxic respiratory failure secondary to aspiration pneumonia and fluid overload secondary to third-degree heart block. Patient is probably in the ICU. During his hospitalization he did require to be intubated on 09/08/2028 and was extubated on 09/13/2020. Patient is also been having a third-degree heart block he had a temporary pacemaker and is now status post permanent pacemaker. He has been treated for sepsis and fluid overload. He remains on IV antibiotics, IV fluids as well as IV steroids. He is cold and negative. For nutrition he has been on TPN. Surgical consult has been placed for PEG tube placement. Patient has failed more than one swallow evaluation. He is sitting in bed comfortably. Denies any nausea or vomiting. Denies any abdominal pain. Reports having bowel movements. No significant fevers chills or sweats. PAST MEDICAL HISTORY: See list. PAST SURGICAL HISTORY: See list. MEDICATIONS: See list. ALLERGIES: See list. SOCIAL HISTORY: No illicit drug use. REVIEW OF SYSTEMS: CONSTITUTIONAL: Denies fever or chills. HEENT: Denies blurred vision, vision changes, or eye pain. Denies hemoptysis CARDIOVASCULAR: Denies chest pain or pressure. RESPIRATORY: No shortness of breath. GASTROINTESTINAL: See HPI for pertinent findings HEMATOLOGIC: Denies bleeding disorders. GENITOURINARY: Denies any blood in urine or increased urinary frequency. SKIN: Denies pruitis. Denies rash. PHYSICAL EXAM: VITAL SIGNS: Reviewed GENERAL: Well-developed in no acute distress. HEENT: No sclera icterus. Extraocular movements grossly intact. Moist buccal mucosa. Head is atraumatic, normocephalic. No nasal drainage. ABDOMEN: Soft. Nontender nondistended NEUROLOGIC: Alert and oriented. Cranial nerves II through XII grossly intact. LABORATORY DATA: WBC 19.4 hemoglobin 11.3 platelets 582 creatinine 0.63 albumin 2.8 IMAGING: Echo EF 55-60% ASSESSMENT: 1. Dysphagia, Malnutrition and failed swallow evaluation 2. Acute hypoxic respiratory failure secondary to aspiration pneumonia 3. Acute complete heart block requiring pacemaker placement 4. Acute kidney injury 5. Acute toxic metabolic encephalopathy with intermittent confusion PLAN: -Patient scheduled for PEG tube placement on September [address] Dunbar -Continue supportive care Thank you for this consultation Physician [employer] note has been reviewed by physician. Signing provider agrees with the documented findings, assessment, and plan of care. Past Medical History Past Medical History: Hyperlipidemia Additional Past Medical History / Comment(s): ventral hernia History of Any Multi-Drug Resistant Organisms: None Reported Past Surgical History: Unable to Obtain Past Anesthesia/Blood Transfusion Reactions: Unable to Obtain Past Psychological History: No Psychological Hx Reported Smoking Status: Never smoker Past Alcohol Use History: None Reported Past Drug Use History: None Reported Medications and Allergies Home Medications Medication Instructions Recorded Confirmed Type Levothyroxine Sodium [Synthroid] 112 mcg PO DAILY 09/08/20 09/08/20 History Spironolactone 100 mg PO DAILY 09/08/20 09/08/20 History Zinc 50 mg PO DAILY 09/08/20 09/08/20 History Allergies Allergy/AdvReac Type Severity Reaction Status Date / Time cephalexin [From Keflex] Allergy Rash/Hives Verified 09/08/20 12:31 Penicillins Allergy Anaphylaxis Verified 09/08/20 12:31 Surgical - Exam Vital Signs Temp Pulse Resp BP Pulse Ox 97.5 F L 49 L 22 136/62 93 L 09/08/20 10:51 09/08/20 10:51 09/08/20 10:51 09/08/20 10:51 09/08/20 10:51 Results - Labs 09/21/20 04:27 09/21/20 04:27 Abnormal Lab Results - Last 24 Hours (Table) 09/20/20 09/20/20 09/21/20 Range/Units 18:02 23:27 04:27 WBC (3.8-10.6) k/uL RBC (4.30-5.90) m/uL Hgb (13.0-17.5) gm/dL Hct (39.0-53.0) % Plt Count (150-450) k/uL Chloride 109 H (98-107) mmol/L BUN 35 H (9-20) mg/dL Creatinine 0.63 L (0.66-1.25) mg/dL Glucose 127 H (74-99) mg/dL POC Glucose (mg/dL) 159 H 174 H (75-99) mg/dL 01/05/0409/21/20 09/21/20 Range/Units 04:27 06:27 11:27 WBC 19.4 H (3.8-10.6) k/uL RBC 3.54 L (4.30-5.90) m/uL Hgb 11.3 L (13.0-17.5) gm/dL Hct 34.1 L (39.0-53.0) % Plt Count 582 H (150-450) k/uL Chloride (98-107) mmol/L BUN (9-20) mg/dL Creatinine (0.66-1.25) mg/dL Glucose (74-99) mg/dL POC Glucose (mg/dL) 132 H 174 H (75-99) mg/dL Diabetes panel 09/21/20 Range/Units 04:27 Sodium 141 (137-145) mmol/L Potassium 4.4 (3.5-5.1) mmol/L Chloride 109 H (98-107) mmol/L Carbon Dioxide 25 (22-30) mmol/L BUN 35 H (9-20) mg/dL Creatinine 0.63 L (0.66-1.25) mg/dL Glucose 127 H (74-99) mg/dL Calcium 8.5 (8.4-10.2) mg/dL Calcium panel 09/21/20 Range/Units 04:27 Calcium 8.5 (8.4-10.2) mg/dL Phosphorus 4.5 (2.5-4.5) mg/dL Pituitary panel 09/21/20 Range/Units 04:27 Sodium 141 (137-145) mmol/L Potassium 4.4 (3.5-5.1) mmol/L Chloride 109 H (98-107) mmol/L Carbon Dioxide 25 (22-30) mmol/L BUN 35 H (9-20) mg/dL Creatinine 0.63 L (0.66-1.25) mg/dL Glucose 127 H (74-99) mg/dL Calcium 8.5 (8.4-10.2) mg/dL Adrenal panel 09/21/20 Range/Units 04:27 Sodium 141 (137-145) mmol/L Potassium 4.4 (3.5-5.1) mmol/L Chloride 109 H (98-107) mmol/L Carbon Dioxide 25 (22-30) mmol/L BUN 35 H (9-20) mg/dL Creatinine 0.63 L (0.66-1.25) mg/dL Glucose 127 H (74-99) mg/dL Calcium 8.5 (8.4-10.2) mg/dL
[2020-09-21] MEDS: DEXMEDETOMIDINE/0.9% NACL(PMX) 400 MCG in EMPTY BAG 1 BAG IV SCH (16:55)
[2020-09-21 16:59] LABS: Glucose,Whole Blood 258 mg/dL (75-99)
--- NOTE | 2020-09-21 17:39 | PN ---
PROGRESS NOTE DATE OF SERVICE: 09/21/2020 REASON FOR FOLLOWUP: Leukocytosis and pneumonia with MULTIPLE ANTIBIOTIC ALLERGIES. INTERVAL COURSE: The patient is currently afebrile. The patient is hemodynamically stable. He has been breathing comfortably. No vomiting. No diarrhea or any other changes reported by the nursing staff. The patient still unable to provide any reliable history. PHYSICAL EXAMINATION: Blood pressure 106/54 with a pulse of 93, temperature 98.3. He is 100% on 11 L nasal cannula. General description: The patient is an elderly male lying in bed in no distress. Respiratory system: Unlabored breathing, decreased breath sounds in the bases. No wheeze. HEART: S1, S2. Regular rate and rhythm. Abdomen soft, no tenderness. LABS: Hemoglobin 11.1, white count of 19.4, BUN of 35, creatinine 0.63. Culture has been negative so far. DIAGNOSTIC IMPRESSION AND PLAN: Patient with elevated white count which is multifactorial in this patient with a component of pneumonia with exchange of the transvenous pacer and the patient also on steroids could be affecting his elevated white count. The patient to continue current broad spectrum antibiotic while monitoring clinical course closely. Continue supportive care. MMODL / IJN: [id number] /
[2020-09-21 23:52] LABS: Glucose,Whole Blood 228 mg/dL (75-99)
[2020-09-22] MEDS: INSULIN ASPART (NovoLOG) 100 UNIT/ML VIAL SQ SCH ×4 (00:10→17:37)
[2020-09-22] MEDS: AZTREONAM 2 GM in SODIUM CHLORIDE 0.9% 100 ML IVPB SCH ×3 (03:13→15:53)
[2020-09-22 05:58] LABS: Glucose,Whole Blood 190 mg/dL (75-99)
[2020-09-22 06:50] LABS: HCT 36.3 % (39.0-53.0); HGB 11.1 gm/dL (13.0-17.5); Hypochromasia Slight; MCH 30.2 pg (25.0-35.0); MCHC 30.7 g/dL (31.0-37.0); MCV 98.4 fL (80.0-100.0); Mean Platelet Volume 8.5; Platelet Count 678 k/uL (150-450); RBC 3.69 m/uL (4.30-5.90); RDW 14.6 % (11.5-15.5); WBC 22.6 k/uL (3.8-10.6)
[2020-09-22] MEDS: LEVOTHYROXINE 112 MCG TAB PO SCH (07:04)
[2020-09-22] MEDS: metroNIDAZOLE-NS PMX 500 MG in SALINE 1 100ML.BAG IVPB SCH ×2 (07:07→15:07)
[2020-09-22 07:16] LABS: African American GFR (CKD) >90 (>60 ml/min/1.73 sqM); Anion Gap 5 mmol/L; Blood Urea Nitrogen 37 mg/dL (9-20); Calcium 8.7 mg/dL (8.4-10.2); Carbon Dioxide 26 mmol/L (22-30); Chloride 111 mmol/L (98-107); Glucose 176 mg/dL (74-99); Non-African American GFR(CKD) >90 (>60 ml/min/1.73 sqM); Phosphorus 4.2 mg/dL (2.5-4.5); Potassium 3.7 mmol/L (3.5-5.1); Sodium 142 mmol/L (137-145)
--- NOTE | 2020-09-22 07:20 | XR ---
EXAMINATION TYPE: XR chest 1V portable DATE OF EXAM: 09/22/2020 COMPARISON: 09/21/2020 HISTORY: Cough TECHNIQUE: Single frontal view of the chest is obtained. FINDINGS: Op pacemaker again noted. There is diffuse interstitial and patchy infiltrates with bilate ral effusions. Atherosclerotic change aorta. Heart size stable. Osseous structures unchanged. IMPRESSION: Diffuse airspace disease and pleural effusion correlate for diffuse pneumonia versus CHF .
[2020-09-22] MEDS: HEPARIN SODIUM,PORCINE 5,000 UNIT/ML 1 ML VIAL SQ SCH ×2 (08:29→15:53)
[2020-09-22] MEDS: methylPREDNISolone SOD SUCCI 40 MG/ML 1 ML VIAL IV SCH ×2 (08:29→15:54)
[2020-09-22] MEDS: FUROSEMIDE 10 MG/ML 4 ML VIAL IV SCH ×2 (08:30→20:20)
[2020-09-22] MEDS: FAT EMULSION 20% 250 ML IV SCH (08:31)
[2020-09-22] MEDS: IPRATROPIUM-ALBUTEROL 3 ML NEB INHALATION SCH ×4 (09:03→19:42)
--- NOTE | 2020-09-22 09:03 | P.PN ---
Subjective Progress Note Date: 09/22/20 Principal diagnosis: Respiratory failure Patient is doing well. He is currently strict nothing by mouth due to aspiration. He will have repeat swallow evaluation today. No overnight events. No pain or shortness of breath according to patient. Objective - Vital Signs Vital signs: Vital Signs Temp 98.1 F 09/22/20 04:00 Pulse 91 09/22/20 07:00 Resp 13 09/22/20 07:00 BP 117/76 09/22/20 07:00 Pulse Ox 90 L 09/22/20 07:00 Intake & Output 09/21/20 09/22/20 09/22/20 18:59 06:59 18:59 Intake Total 9626.715 3360.83 75 Output Total 1825 1430 50 Balance 15.804 -114.17 25 Weight 85.2 kg 80 kg Intake: IV 1505 1315.83 75 Aztreonam 2 gm In Sodium 200 100 Chloride 0.9% 100 ml @ 33 .3 mls/hr IVPB Q8HR [facility] Rx#:[id number] Fat Emulsion 20% 250 ml @ 200 40.83 20.833 mls/hr IV DAILY [facility] Rx#:[id number] Fluconazole in NaCl,Iso- 100 Osm 200 mg In Saline 1 100ml.bag @ 100 mls/hr IVPB DAILY@1200 [facility] Rx#: [id number] Lactated Ringers 1,000 ml 80 @ 20 mls/hr IV .Q24H [facility] Rx#:[id number] Potassium Phosphate 30 825 825 75 mmol Magnesium Sulfate gm 1 gm Calcium Gluconate 1 gm In Amino Acids 5 %/ Dextrose 20 % 1,000 ml @ 75 mls/hr IV .BY DURATION [facility] Rx#:[id number] Vancomycin 1,500 mg In 250 Sodium Chloride 0.9% 250 ml @ 125 mls/hr IVPB BID@ 1100,2100 [facility] Rx#: [id number] metroNIDAZOLE-NS PMX 500 100 100 mg In Saline 1 100ml.bag @ 100 mls/hr IVPB Q8H [facility] Rx#:[id number] Intake, IV Titration 335.804 Amount Dexmedetomidine/0.9% NaCl 85.804 (Pmx) 400 mcg In Empty Bag 1 bag @ Titrate IV . Q0M [facility] Rx#:[id number] Vancomycin 1,500 mg In 250 Sodium Chloride 0.9% 250 ml @ 125 mls/hr IVPB BID@ 1100,2100 [facility] Rx#: [id number] Output: Urine 1825 1430 50 Other: Voiding Method Indwelling Catheter Indwelling Catheter ABP, PAP, CO, CI - Last Documented Arterial Blood Pressure 71/59 - Exam Gen: No acute distress. HEENT: normocephalic, atraumatic, good hearing acuity, moist mucous membranes Resp: Coarse breath sounds bilaterally CVS: RRR, S1 and S2 normal. good distal perfusion x 4, no appreciable murmurs GI: soft, NTTP, ND. Large ventral hernia. : no SPT, no CVAT, torre catheter is present MSK: 1+ pitting edema, no clubbing Neuro: non-focal, moving all extremities Psych: confused. Disoriented. - Labs CBC & Chem 7: 09/22/20 06:29 09/22/20 06:29 Labs: Abnormal Lab Results - Last 24 Hours (Table) 09/21/20 09/21/20 09/21/20 Range/Units 11:27 16:58 23:51 WBC (3.8-10.6) k/uL RBC (4.30-5.90) m/uL Hgb (13.0-17.5) gm/dL Hct (39.0-53.0) % MCHC (31.0-37.0) g/dL Plt Count (150-450) k/uL Chloride (98-107) mmol/L BUN (9-20) mg/dL Glucose (74-99) mg/dL POC Glucose (mg/dL) 174 H 258 H 228 H (75-99) mg/dL 09/22/20 09/22/20 09/22/20 Range/Units 05:56 06:29 06:29 WBC 22.6 H (3.8-10.6) k/uL RBC 3.69 L (4.30-5.90) m/uL Hgb 11.1 L (13.0-17.5) gm/dL Hct 36.3 L (39.0-53.0) % MCHC 30.7 L (31.0-37.0) g/dL Plt Count 678 H (150-450) k/uL Chloride 111 H (98-107) mmol/L BUN 37 H (9-20) mg/dL Glucose 176 H (74-99) mg/dL POC Glucose (mg/dL) 190 H (75-99) mg/dL Assessment and Plan Plan: Unresponsiveness, suspected secondary to bradycardia with complete heart block Acute hypoxic respiratory failure, on mechanical ventilation Community-acquired pneumonia versus aspiration pneumonia -Status post transvenous pacer for third-degree AV block with bradycardia on 09/08/20, s/p placement of temporary pacer. -Status post bronch with BAL on 09/11, cultures negative -COVID 19 PCR negative -Infectious disease following: Patient on aztreonam, Flagyl, and Fluconazole. Clindamycin changed to vancomycin 09/19 due to persistent leukocytosis. -Echocardiogram unremarkable with LVEF 55-60% and normal LV wall thickness Chronic aspiration/moderate severe malnutrition Being followed by speech therapy, swallowing evaluation is going to be repeated today. Started on TPN Discussed with , she is okay with proceeding to a feeding tube if necessary. Surgery consulted for PEG tube placement Acute delirium/agitation Precedex gtt Haldol when necessary Improved Fluid overload Continue lasix Third-degree heart block -Cardiology recommendations. -Temporary pacer placed Elevated troponin - due to hypoxemia - not consistent with acute coronary syndrome. Hypothyroidism -Continue Synthroid Lactic acidosis, resolved Hyponatremia, resolved Hyperglycemia without known history of diabetes, resolved Acute kidney injury, resolved General weakness PT following DVT prophylaxis: heparin Discussed with: patient, nursing Anticipated discharge: 3 days, Anticipated discharge place: likely will need rehab A total of 25 minutes was spent on the care of this complex patient more than 50% of the time was spent in counseling and care coordination.
[2020-09-22] MEDS: PANTOPRAZOLE 40 MG/10 ML VIAL IVP SCH (09:20)
[2020-09-22] MEDS: LEVOTHYROXINE IVP 100 MCG/5 ML VIAL IV SCH (09:20)
--- NOTE | 2020-09-22 09:22 | PN ---
PROGRESS NOTE Mr. Sheehan is a 74-year-old male who presented with complete heart block and evidence of aspiration pneumonia. He is feeling better today. Denies any chest pain. He denies any dizziness or palpitation. He denies any nausea. He has an externalized temporary pacemaker with screw-in wires. He is more awake and alert. He denies any nausea and vomiting. He is hemodynamically stable with no evidence of pacemaker malfunction. He continues on Lasix 40 mg IV q.12 hours. PHYSICAL EXAMINATION: Blood pressure in the 110s to 120s with a heart rate in the 70s to 90s. LUNGS: With few crackles bilaterally. HEART: Regular rate and rhythm, S1, S2. No S3 with systolic murmur, no diastolic murmur. ABDOMEN: Soft, nontender. Positive bowel sounds. No organomegaly. EXTREMITIES: No edema. LAB DATA: Revealed a white blood cell of 22.6, hemoglobin 11.1. BUN and creatinine 37 and 0.6. Chest x-ray revealed bilateral infiltrates. IMPRESSION: 1. Complete heart block requiring pacemaker. Continues to be dependent on the pacemaker. Patient has an externalized temporary pacemaker. 2. Pneumonia, most likely aspiration pneumonia with persistent leukocytosis. Afebrile at this time. 3. Change in mental status with confusion, improved. 4. Mild nutrition. RECOMMENDATION: From the cardiac standpoint we will continue present therapy. Continue to get him up in the chair. Follow his CBC and chest x-ray. Make a decision regarding switching to a permanent pacemaker. MMODL / IJN: [id number] /
[2020-09-22] MEDS: POTASSIUM PHOSPHATE IV SCH ×6 (10:09)
[2020-09-22] MEDS: MAGNESIUM SULFATE IV SCH ×6 (10:09)
[2020-09-22] MEDS: [UNRECOGNIZED DRUG - OTHER] IV SCH ×6 (10:09)
[2020-09-22] MEDS: CALCIUM GLUCONATE IV SCH ×6 (10:09)
[2020-09-22] MEDS: VANCOMYCIN 1,500 MG in SODIUM CHLORIDE 0.9% 250 ML IVPB SCH ×2 (11:02→20:20)
--- NOTE | 2020-09-22 11:35 | P.PN ---
Progress Note - Text Progress Note Date: 09/22/20 The patient remained stable. He will be scheduled for PEG tube placement on Thursday.
[2020-09-22 12:26] LABS: Glucose,Whole Blood 239 mg/dL (75-99)
[2020-09-22] MEDS: FLUCONAZOLE IN NACL,ISO-OSM 200 MG in SALINE 1 100ML.BAG IVPB SCH (12:38)
--- NOTE | 2020-09-22 13:10 | P.PN ---
Subjective Progress Note Date: 09/22/20 Principal diagnosis: Acute hypoxic respiratory failure secondary to pneumonia and fluid overload secondary to third-degree heart block. On 09/10/2020, the patient is being seen for a follow-up. The patient came in to the hospital yesterday and subsequently admitted to the intensive care unit because of difficulty breathing. At a time of arrival to the ED, the patient was discovered to be congestion heart failure and there was also concern for pneumonia/sepsis. Subsequently, the patient developed a third-degree AV block and required intubation mechanical ventilation. Cardiology was consulted. The patient was taken to the [facility] for placement of a temporary venous pacemaker. The patient was brought in back to the intensive care unit intubated on a mechanical ventilator. The patient was sedated and paralyzed with a combination of propofol an endovascular suspected and the patient was requiring pressors including norepinephrine infusion. The patient was also on a bicarb infusion with D5 and 150 mEq of sodium bicarbonate running at 150 mL an hour. IV access was established. The patient was covered with a combination of Azactam, Flagyl and vancomycin as broad-spectrum antibiotic coverage. Chest x-ray showed the possibility of a lower lobe pneumonia bilaterally. As such, the patient was treated for acute hypoxic respiratory failure for the above-mentioned reasons. The patient as mentioned was in a third-degree AV block and required a temporary transvenous pacemaker insertion. The patient was also in acute kidney injury related to above-mentioned comorbidities in addition to a shock liver. Note that the patient's also had a right-sided cardiac cath revealing normal pulmonary artery pressures in the pulmonary capillary wedge pressure was only 14 mmHg , and echocardiogram that was done showed a normal LV systolic function with an ejection fraction of 55-60%, RV was within normal, LAD was within normal limits, mild mitral regurgitation, moderate tricuspid regurgitation and the right posterior systolic pressure was estimated to be 28 mmHg. Noted the patient's cognitive testing came back negative. The white cell count was at 34 at time of admission and came up to 41. The patient had 24% bandemia. The initial blood gases was consistent with severe metabolic acidosis with a pH of 7.03 and a pCO2 of 44 and pO2 of 87. Subsequent blood gases showed improvement and acid base status. The patient was in acute kidney injury with a creatinine of 2.24 and this subsequently improved.. Lactic acid initially was at 6.5 down to 2.9. Troponin peaked at 0.16. ProBNP level was 14,300 and the patient's pro calcitonin level was 25.3. UA was negative. The patient currently has a left IJ triple-lumen catheter in place. He is currently intubated on a mechanical ventilator. He is an assist-control mode with tidal volume of 450, FiO2 of 60% with a PEEP of 15 and a rate of 26. Probable was running at 50 mcg/kg per minute. Nimbex is running at 1.5 mcg/kg per minute. Norepinephrine infusion is running at 0.06 g per kilograms per minute. She is living vital high protein at the rate of 20 mL an hour. The patient is afebrile this morning. The chest x-ray still showing diffuse but the pulmonary infiltrates perihilar and these infiltrates are quite dense.The white cell count is improved and is currently down to 17. The blood gases from today showed a pH of 7.57 with a pCO2 of 31 and pO2 162 as such the patient has developed a combination of respiratory and metabolic alkalosis the renal function is improved in the creatinine is normalized is down to 1.1. His adequate urine output. Lactic acid level is down to 2.4. Cultures are still all. His cardiac rhythm is currently paced at the rate of 60 with an underlying rhythm of third-degree AV block. On 09/11/2020, the patient remains intubated on a mechanical ventilator. This morning, he is on assist control mode at a rate of 26 with a tidal volume of 400 and FiO2 of 50% with a PEEP of 15. The blood gases from this morning showed a pH of 7.46 with a pCO2 of 38 and pO2 of 217. Nevertheless, the chest x-ray still showing bilateral perihilar pulmonary infiltrates with increased consolidation of the lung bases. We are still considering a bacterial pneumonia. The patient's pro calcitonin level was quite elevated and the patient had severe leukocytosis at time of admission. The COVID19 testing 2 came back negative. The patient was covered with a combination of vancomycin, Flagyl, and Azactam. The cultures are all negative. The patient is afebrile fo r now. As mentioned, the white cell count is improving. Meanwhile, his cardiac rhythm is still third-degree AV block is currently paced at the rate of 80 with a transvenous pacemaker through his right IJ. The patient is still on pressors and norepinephrine is running at 0.06 mcg/kg per minute. Urine output is in order of 50 mL an hour and the patient is receiving IV fluids in the form of normal saline today to 100 mL an hour. He is sedated with propofol at 50 mcg/kg per minute. I cell count is down to 14.4. Her lactic acid level was down to 1.6, LFTs are slightly elevated with AST of 137, ALT of 190, serum albumin is at 1.6 and ionized calcium is at 4.6. He is afebrile. He is receiving vital high protein for enteral nutrition today to 45 mL an hour. Patient was reevaluated today on 09/17/2020, patient remains in the ICU, he is being treated for pneumonia and sepsis. Remains on Diflucan, Azactam, and Flagyl. Patient is being treated for presumptive aspiration pneumonia and is also being treated for fluid overload which was felt to be related to his third- degree AV block requiring temporary pacemaker implantation. Patient is intermittently on BiPAP, with IPAP of 12 and EPAP of 5, and 40% FiO2, however he is presently on few liters nasal cannula and seems to be saturating in the mid 90s. Patient was intubated on 09/08 until 09/13. Still being followed by cardiology for potential permanent pacemaker implantation. Presently he is fully paced I his temporary pacemaker. Underwent a bronchoscopy on 09/11, it is nondiagnostic, no specific cultures have been noted. Chest x-ray continues to show bilateral, multifocal interstitial infiltrates basic metabolic profile is normal electrolytes are normal potassium is a bit low at 3.4. Continues to have leukocytosis with WBC count of 23.4 hemoglobin is 10.9. Renal profile is relatively unremarkable however BUN is elevated at 46 and creatinine is 0.85. Reevaluated today on 09/18/2020, patient remains in the ICU, developed significant amount of agitation yesterday, and I had to place the patient on Precedex, 0.2 mcg/kg per hour. Tolerated that quite well, and his symptoms of agitation have significantly improved. Patient is also on IV fluid at 40 mL per hour. He is 100% paced, however his intrinsic rate is in the 30s, patient continues to have third-degree AV block. Patient is scheduled to have permanent pacemaker implantation tomorrow. Chest x-ray continues to show bilateral airspace disease consistent with aspiration. Remains on the Flagyl Diflucan and Azactam. Patient is having issues with swallowing clear liquids, and he is supposed to be given only sick liquids because of potential aspiration with clear liquids. Or thin liquids. Patient will have a pacemaker implanted tomorrow, however he has a left subclavian central line on the left side, and may have to discontinue the central line, and I will arrange for a midline or a PICC line. CBC count today is 19.4. Hemoglobin is 11.0, rest of the labs were noted to be unremarkable, sodium is at the time at 147 and his main IV fluids changed to D5W. BUN is 53 creatinine 0.90. Patient was reevaluated today on 09/19/2020, patient remains in the ICU, remains on Precedex at 0.15 mcg/kg per hour. Patient is on TPN, given via PICC line. Remains on antibiotics for aspiration pneumonia including Azactam and Flagyl and clindamycin. Intermittently on BiPAP with IPAP of 12 EPAP of 5, presently on 11 L high flow nasal cannula. Chest x-ray continues to show bilateral airspace disease right upper lobe and left midlung involvement. Continues to have third- degree AV block and with was taken off the temporary pacemaker, patient was noted to have even asystole. He is pacemaker dependent. Patient is scheduled to have a temporary pacemaker/external to be done tomorrow no clear-cut reason why the patient could not have permanent pacemaker implantation. At any rate pulmonary-min the patient continues to gradually improve, and remains empirically on antibiotics, no specific cultures were noted to be positive. CBC continues to show leukocytosis with WBC of 23.5 hemoglobin is 11.9 electrolytes are normal except for elevated sodium of 147. Reevaluated today on 09/20/2020, patient remains in the ICU, remains on Precedex at 0.15 mcg/kg/h, remains on TPN, IV fluid is at KVO. Chest x-ray continues to show bilateral airspace disease. His antibiotics coverage was increased by infectious disease on the case, he is presently on vancomycin and Flagyl Diflucan and Azactam. Patient remains 100% paced. Going for another pacemaker implantation today. Patient is on 10 L high flow nasal cannula, does not seem to be in distress, but on physical examination he has rhonchi and wheezes bilaterally. And I recommended more diuretics to be given to the patient, he is now on Lasix 40 mg IV push every 12 hours. Reevaluated today , patient remains in the ICU, patient had his external temporary pacemaker placed yesterday. Today continues to have significantdisease involving the right upper lobe and the left midlung as well as left lower lobe. Patient continues to have difficulty swallowing, and he remains on TPN, hence I recommended surgical evaluation for possible PEG tube placement. Remains on multiple antibiotics for his aspiration pneumonia. Solu- Medrol was added for his cough and wheezing. Remains on Precedex which I plan to discontinue hopefully today. Patient is intermittently on BiPAP with IPAP of 12 EPAP of 5 and FiO2 60%, presently on 11 L high flow nasal cannula with O2 saturation 94%. Reevaluated today on 09/22/2020, remains in the ICU, doing fairly well, no major change in the last 24 hours. Remains nothing by mouth, scheduled to have a PEG tube placement on Thursday. Asked x-ray continues to show significant airspace disease bilaterally. And that's felt to be related to aspiration. Patient remains on a minimal dose of Precedex which I will discontinue today. He is hemodynamically stable, not requiring any pressors. Remains on 6 L high flow nasal cannula. At Precedex 0.1 mcg/kg/m. TPN is running at 75 ML per hour, remains on antibiotics in the form of vancomycin and Azactam Objective - Vital Signs Vital signs: Vital Signs Temp 97.8 F 09/22/20 12:00 Pulse 90 09/22/20 12:27 Resp 16 09/22/20 12:00 BP 111/76 09/22/20 12:00 Pulse Ox 91 L 09/22/20 12:00 Intake & Output 09/21/20 09/22/20 09/22/20 18:59 06:59 18:59 Intake Total 0937.952 2531.83 1943.75 Output Total 1825 1430 1325 Balance 15.804 -114.17 618.75 Weight 85.2 kg 80 kg Intake: IV 1505 1315.83 580 0.9 NACL 30 Aztreonam 2 gm In Sodium 200 100 100 Chloride 0.9% 100 ml @ 33 .3 mls/hr IVPB Q8HR [facility] Rx#:[id number] Fat Emulsion 20% 250 ml @ 200 40.83 20.833 mls/hr IV DAILY [facility] Rx#:[id number] Fluconazole in NaCl,Iso- 100 Osm 200 mg In Saline 1 100ml.bag @ 100 mls/hr IVPB DAILY@1200 [facility] Rx#: [id number] Lactated Ringers 1,000 ml 80 @ 20 mls/hr IV .Q24H [facility] Rx#:[id number] Potassium Phosphate 30 825 825 450 mmol Magnesium Sulfate gm 1 gm Calcium Gluconate 1 gm In Amino Acids 5 %/ Dextrose 20 % 1,000 ml @ 75 mls/hr IV .BY DURATION [facility] Rx#:[id number] Vancomycin 1,500 mg In 250 Sodium Chloride 0.9% 250 ml @ 125 mls/hr IVPB BID@ 1100,2100 [facility] Rx#: [id number] metroNIDAZOLE-NS PMX 500 100 100 mg In Saline 1 100ml.bag @ 100 mls/hr IVPB Q8H [facility] Rx#:[id number] Intake, IV Titration 904.173 9112.75 Amount Dexmedetomidine/0.9% NaCl 85.804 (Pmx) 400 mcg In Empty Bag 1 bag @ Titrate IV . Q0M [facility] Rx#:[id number] Fluconazole in NaCl,Iso- 100 Osm 200 mg In Saline 1 100ml.bag @ 100 mls/hr IVPB DAILY@1200 [facility] Rx#: [id number] Potassium Phosphate 30 938.75 mmol Magnesium Sulfate gm 1 gm Calcium Gluconate 1 gm In Amino Acids 5 %/ Dextrose 20 % 1,000 ml @ 75 mls/hr IV .BY DURATION [facility] Rx#:[id number] Potassium Phosphate 30 75 mmol Magnesium Sulfate gm 1 gm Calcium Gluconate 1 gm Mvi, Adult No.4 with Vit K 10 ml Trace (Conc- 1Ml/Dose) 1 ml In Amino Acids 5 %/Dextrose 20 % 1 ,000 ml @ 75 mls/hr IV . BY DURATION [facility] Rx#: [id number] Vancomycin 1,500 mg In 250 250 Sodium Chloride 0.9% 250 ml @ 125 mls/hr IVPB BID@ 1100,2100 [facility] Rx#: [id number] Output: Urine 1825 1430 1325 Other: Voiding Method Indwelling Catheter Indwelling Catheter Indwelling Catheter ABP, PAP, CO, CI - Last Documented Arterial Blood Pressure 71/59 - Exam Gen: Revealed 74-year-old white male in no distress. On 6L high flow nasal cannula. HEENT: normocephalic, atraumatic, PERRLA, nonicteric. EOMI. Resp: Symmetrical chest expansion rhonchi crackles and wheezes noted bilaterally.. CVS: Normal S1 and S2, no S3 gallop. No murmur. GI: Soft nontender no megaly no rebound, large ventral hernia is noted. : Bae catheter is present otherwise negative. MSK: 1+ bipedal edema. Neuro: Alert and oriented 3 focal neurologic deficits. Psych: Normal mood, affect and normal mental status examination today. - Labs CBC & Chem 7: 09/22/20 06:29 09/22/20 06:29 Labs: Abnormal Lab Results - Last 24 Hours (Table) 09/21/20 09/21/20 09/22/20 Range/Units 16:58 23:51 05:56 WBC (3.8-10.6) k/uL RBC (4.30-5.90) m/uL Hgb (13.0-17.5) gm/dL Hct (39.0-53.0) % MCHC (31.0-37.0) g/dL Plt Count (150-450) k/uL Chloride (98-107) mmol/L BUN (9-20) mg/dL Glucose (74-99) mg/dL POC Glucose (mg/dL) 258 H 228 H 190 H (75-99) mg/dL 09/22/20 09/22/20 09/22/20 Range/Units 06:29 06:29 12:24 WBC 22.6 H (3.8-10.6) k/uL RBC 3.69 L (4.30-5.90) m/uL Hgb 11.1 L (13.0-17.5) gm/dL Hct 36.3 L (39.0-53.0) % MCHC 30.7 L (31.0-37.0) g/dL Plt Count 678 H (150-450) k/uL Chloride 111 H (98-107) mmol/L BUN 37 H (9-20) mg/dL Glucose 176 H (74-99) mg/dL POC Glucose (mg/dL) 239 H (75-99) mg/dL Assessment and Plan Assessment: Impression: Acute hypoxic respiratory failure secondary to aspiration pneumonia. Acute complete heart block requiring temporary pacemaker implantation. Severe metabolic acidosis, resolved. Acute kidney injury secondary to acute tubular necrosis. Dyslipidemia. Hypothyroidism. Intermittent episodes of confusion secondary to acute metabolic encephalopathy, improving. Acute toxic metabolic encephalopathy and intermittent confusion, improved with Precedex. Dysphagia, patient unable to swallow, PEG tube is scheduled to be done on Thursday. Recommendation: Continue antibiotics , empirically. Continue to monitor the patient in the ICU and titrate oxygen accordingly. Continue IV Solu-Medrol. PEG tube to be placed on Thursday. Discontinue Precedex today. Titrate oxygen accordingly. Continue to monitor daily labs. Continue nutritional support/TPN via PICC line. We'll continue to follow. Time with Patient: Less than 30
[2020-09-22] MEDS ORDERED: DEXMEDETOMIDINE/0.9% NACL(PMX) 400 MCG in EMPTY BAG 1 BAG IV SCH (13:30)
--- NOTE | 2020-09-22 16:33 | PN ---
PROGRESS NOTE DATE OF SERVICE: 09/22/2020 REASON FOR FOLLOWUP: 1. Aspiration pneumonia. 2. Elevated white count. INTERVAL HISTORY: The patient is currently afebrile. The patient is more awake and alert. He is breathing comfortably. Denies having any chest pain. Minimal cough. No abdominal pain or diarrhea. PHYSICAL EXAMINATION: Blood pressure 105/71 with a pulse of 88, temperature 97.8. He is 95% on 6 L nasal cannula. General description is an elderly male lying in bed in no distress. RESPIRATORY SYSTEM: Unlabored breathing with decreased breath sounds at the base. No wheeze. HEART: S1, S2. Regular rate and rhythm. ABDOMEN: Soft. No tenderness. EXTREMITIES: No edema of the feet. LABS: White count of 22,000. Culture remains negative. DIAGNOSTIC IMPRESSION AND PLAN: Patient admitted to hospital with unresponsiveness, concern for aspiration pneumonia. The patient also has a heart block requiring transvenous pacemaker placement. The patient does have MULTIPLE ANTIBIOTIC ALLERGIES. We will keep the patient on Azactam and vancomycin at this point. Discontinue Diflucan and Flagyl and monitor his clinical course closely. MMODL / IJN: [id number] /
[2020-09-22 17:29] LABS: Glucose,Whole Blood 238 mg/dL (75-99)
[2020-09-22 23:32] LABS: Glucose,Whole Blood 146 mg/dL (75-99)
[2020-09-23] MEDS: AZTREONAM 2 GM in SODIUM CHLORIDE 0.9% 100 ML IVPB SCH ×4 (00:14→23:52)
[2020-09-23] MEDS: HEPARIN SODIUM,PORCINE 5,000 UNIT/ML 1 ML VIAL SQ SCH ×4 (00:15→23:51)
[2020-09-23] MEDS: INSULIN ASPART (NovoLOG) 100 UNIT/ML VIAL SQ SCH ×5 (00:15→23:52)
[2020-09-23] MEDS: methylPREDNISolone SOD SUCCI 40 MG/ML 1 ML VIAL IV SCH ×4 (00:15→21:23)
[2020-09-23] MEDS: CALCIUM GLUCONATE IV SCH ×18 (00:17→13:56)
[2020-09-23] MEDS: [UNRECOGNIZED DRUG - OTHER] IV SCH ×18 (00:17→13:56)
[2020-09-23] MEDS: MAGNESIUM SULFATE IV SCH ×18 (00:17→13:56)
[2020-09-23] MEDS: POTASSIUM PHOSPHATE IV SCH ×18 (00:17→13:56)
[2020-09-23 04:32] LABS: HCT 36.9 % (39.0-53.0); HGB 11.8 gm/dL (13.0-17.5); Hypochromasia Slight; MCH 30.8 pg (25.0-35.0); MCHC 31.8 g/dL (31.0-37.0); MCV 96.6 fL (80.0-100.0); Mean Platelet Volume 8.2; Platelet Count 786 k/uL (150-450); RBC 3.82 m/uL (4.30-5.90); RDW 14.3 % (11.5-15.5); WBC 24.4 k/uL (3.8-10.6)
[2020-09-23 04:52] LABS: African American GFR (CKD) >90 (>60 ml/min/1.73 sqM); Anion Gap 8 mmol/L; Blood Urea Nitrogen 38 mg/dL (9-20); Calcium 8.9 mg/dL (8.4-10.2); Carbon Dioxide 23 mmol/L (22-30); Chloride 111 mmol/L (98-107); Glucose 207 mg/dL (74-99); Non-African American GFR(CKD) >90 (>60 ml/min/1.73 sqM); Phosphorus 4.4 mg/dL (2.5-4.5); Potassium 3.6 mmol/L (3.5-5.1); Sodium 142 mmol/L (137-145)
[2020-09-23 05:38] LABS: Glucose,Whole Blood 222 mg/dL (75-99)
--- NOTE | 2020-09-23 07:14 | XR ---
EXAMINATION TYPE: XR chest 1V portable DATE OF EXAM: 09/23/2020 COMPARISON: 09/22/2020 HISTORY: Cough TECHNIQUE: Single frontal view of the chest is obtained. FINDINGS: Cardiac device again noted. Bilateral areas of infiltrate and pleural effusion stable. Hea rt size stable. Hypertrophic and degenerative change spine. Atherosclerotic change aorta. Lung apices limited due to positioning. No obvious pneumothorax. IMPRESSION: Stable bilateral diffuse airspace disease with pleural effusion correlate for pneumonia.
[2020-09-23] MEDS: POTASSIUM CHLORIDE 10 MEQ in WATER FOR INJECTION 1 100ML.BAG IVPB SCH ×2 (07:15→08:34)
[2020-09-23] MEDS: IPRATROPIUM-ALBUTEROL 3 ML NEB INHALATION SCH ×4 (08:31→20:17)
[2020-09-23] MEDS: LEVOTHYROXINE IVP 100 MCG/5 ML VIAL IV SCH (08:33)
[2020-09-23] MEDS: FUROSEMIDE 10 MG/ML 4 ML VIAL IV SCH ×2 (08:33→21:23)
[2020-09-23] MEDS: PANTOPRAZOLE 40 MG/10 ML VIAL IVP SCH (08:33)
[2020-09-23] MEDS: FAT EMULSION 20% 250 ML IV SCH (08:34)
--- NOTE | 2020-09-23 09:22 | PN ---
PROGRESS NOTE Mr. Sheehan is a 74-year-old male who presented with complete heart block and evidence of pneumonia, probable aspiration pneumonia. He has an externalized temporary pacemaker. He is slightly more confused today. Chest x-ray shows worsening of his infiltrate and he has leukocytosis. He denies any chest pain. He denies any dizziness or palpitation. His pacemaker is functioning appropriately. There is no evidence of pacemaker malfunction. Hemodynamically, otherwise, he is stable. He is on Lasix 40 mg IV q.12 hours and methylprednisolone. PHYSICAL EXAMINATION: Blood pressure 134/70 with a heart rate in 90s. Lungs with bilateral scattered rhonchi. HEART: Regular rate and rhythm, S1, S2. No S3. No rub. ABDOMEN: Soft, nontender. Extremities no significant edema. LAB DATA: Revealed BUN and creatinine 38 and 0.61, potassium 3.6, hemoglobin of 11.8. His white blood cell of 24.4, which is worse than yesterday. The chest x-ray shows progression of his infiltrate bilaterally. IMPRESSION: 1. Bilateral infiltrate with possible aspiration pneumonia, rule out RDS. 2. Complete heart block with a temporary pacemaker placed. 3. Episode of confusion. 4. Malnutrition. RECOMMENDATIONS: From the cardiac standpoint, we will continue present therapy. We will continue to hold on permanent pacemaker until his chest x-ray and his leukocytosis improved. In the meantime, we will continue present regimen. If there is worsening of his respiratory status, he may require mechanical ventilation. MMRUBY / MERVINN: [id number] /
--- NOTE | 2020-09-23 10:54 | P.PN ---
Progress Note - Text Progress Note Date: 09/23/20 The patient will have his PEG tube scheduled for tomorrow.
[2020-09-23] MEDS: VANCOMYCIN 1,500 MG in SODIUM CHLORIDE 0.9% 250 ML IVPB SCH ×2 (11:12→21:23)
[2020-09-23 12:00] LABS: Glucose,Whole Blood 243 mg/dL (75-99)
--- NOTE | 2020-09-23 12:33 | P.PN ---
Subjective Progress Note Date: 09/23/20 Principal diagnosis: Acute hypoxic respiratory failure secondary to pneumonia and fluid overload secondary to third-degree heart block. On 09/10/2020, the patient is being seen for a follow-up. The patient came in to the hospital yesterday and subsequently admitted to the intensive care unit because of difficulty breathing. At a time of arrival to the ED, the patient was discovered to be congestion heart failure and there was also concern for pneumonia/sepsis. Subsequently, the patient developed a third-degree AV block and required intubation mechanical ventilation. Cardiology was consulted. The patient was taken to the [facility] for placement of a temporary venous pacemaker. The patient was brought in back to the intensive care unit intubated on a mechanical ventilator. The patient was sedated and paralyzed with a combination of propofol an endovascular suspected and the patient was requiring pressors including norepinephrine infusion. The patient was also on a bicarb infusion with D5 and 150 mEq of sodium bicarbonate running at 150 mL an hour. IV access was established. The patient was covered with a combination of Azactam, Flagyl and vancomycin as broad-spectrum antibiotic coverage. Chest x-ray showed the possibility of a lower lobe pneumonia bilaterally. As such, the patient was treated for acute hypoxic respiratory failure for the above-mentioned reasons. The patient as mentioned was in a third-degree AV block and required a temporary transvenous pacemaker insertion. The patient was also in acute kidney injury related to above-mentioned comorbidities in addition to a shock liver. Note that the patient's also had a right-sided cardiac cath revealing normal pulmonary artery pressures in the pulmonary capillary wedge pressure was only 14 mmHg , and echocardiogram that was done showed a normal LV systolic function with an ejection fraction of 55-60%, RV was within normal, LAD was within normal limits, mild mitral regurgitation, moderate tricuspid regurgitation and the right posterior systolic pressure was estimated to be 28 mmHg. Noted the patient's cognitive testing came back negative. The white cell count was at 34 at time of admission and came up to 41. The patient had 24% bandemia. The initial blood gases was consistent with severe metabolic acidosis with a pH of 7.03 and a pCO2 of 44 and pO2 of 87. Subsequent blood gases showed improvement and acid base status. The patient was in acute kidney injury with a creatinine of 2.24 and this subsequently improved.. Lactic acid initially was at 6.5 down to 2.9. Troponin peaked at 0.16. ProBNP level was 14,300 and the patient's pro calcitonin level was 25.3. UA was negative. The patient currently has a left IJ triple-lumen catheter in place. He is currently intubated on a mechanical ventilator. He is an assist-control mode with tidal volume of 450, FiO2 of 60% with a PEEP of 15 and a rate of 26. Probable was running at 50 mcg/kg per minute. Nimbex is running at 1.5 mcg/kg per minute. Norepinephrine infusion is running at 0.06 g per kilograms per minute. She is living vital high protein at the rate of 20 mL an hour. The patient is afebrile this morning. The chest x-ray still showing diffuse but the pulmonary infiltrates perihilar and these infiltrates are quite dense.The white cell count is improved and is currently down to 17. The blood gases from today showed a pH of 7.57 with a pCO2 of 31 and pO2 162 as such the patient has developed a combination of respiratory and metabolic alkalosis the renal function is improved in the creatinine is normalized is down to 1.1. His adequate urine output. Lactic acid level is down to 2.4. Cultures are still all. His cardiac rhythm is currently paced at the rate of 60 with an underlying rhythm of third-degree AV block. On 09/11/2020, the patient remains intubated on a mechanical ventilator. This morning, he is on assist control mode at a rate of 26 with a tidal volume of 400 and FiO2 of 50% with a PEEP of 15. The blood gases from this morning showed a pH of 7.46 with a pCO2 of 38 and pO2 of 217. Nevertheless, the chest x-ray still showing bilateral perihilar pulmonary infiltrates with increased consolidation of the lung bases. We are still considering a bacterial pneumonia. The patient's pro calcitonin level was quite elevated and the patient had severe leukocytosis at time of admission. The COVID19 testing 2 came back negative. The patient was covered with a combination of vancomycin, Flagyl, and Azactam. The cultures are all negative. The patient is afebrile fo r now. As mentioned, the white cell count is improving. Meanwhile, his cardiac rhythm is still third-degree AV block is currently paced at the rate of 80 with a transvenous pacemaker through his right IJ. The patient is still on pressors and norepinephrine is running at 0.06 mcg/kg per minute. Urine output is in order of 50 mL an hour and the patient is receiving IV fluids in the form of normal saline today to 100 mL an hour. He is sedated with propofol at 50 mcg/kg per minute. I cell count is down to 14.4. Her lactic acid level was down to 1.6, LFTs are slightly elevated with AST of 137, ALT of 190, serum albumin is at 1.6 and ionized calcium is at 4.6. He is afebrile. He is receiving vital high protein for enteral nutrition today to 45 mL an hour. Patient was reevaluated today on 09/17/2020, patient remains in the ICU, he is being treated for pneumonia and sepsis. Remains on Diflucan, Azactam, and Flagyl. Patient is being treated for presumptive aspiration pneumonia and is also being treated for fluid overload which was felt to be related to his third- degree AV block requiring temporary pacemaker implantation. Patient is intermittently on BiPAP, with IPAP of 12 and EPAP of 5, and 40% FiO2, however he is presently on few liters nasal cannula and seems to be saturating in the mid 90s. Patient was intubated on 09/08 until 09/13. Still being followed by cardiology for potential permanent pacemaker implantation. Presently he is fully paced I his temporary pacemaker. Underwent a bronchoscopy on 09/11, it is nondiagnostic, no specific cultures have been noted. Chest x-ray continues to show bilateral, multifocal interstitial infiltrates basic metabolic profile is normal electrolytes are normal potassium is a bit low at 3.4. Continues to have leukocytosis with WBC count of 23.4 hemoglobin is 10.9. Renal profile is relatively unremarkable however BUN is elevated at 46 and creatinine is 0.85. Reevaluated today on 09/18/2020, patient remains in the ICU, developed significant amount of agitation yesterday, and I had to place the patient on Precedex, 0.2 mcg/kg per hour. Tolerated that quite well, and his symptoms of agitation have significantly improved. Patient is also on IV fluid at 40 mL per hour. He is 100% paced, however his intrinsic rate is in the 30s, patient continues to have third-degree AV block. Patient is scheduled to have permanent pacemaker implantation tomorrow. Chest x-ray continues to show bilateral airspace disease consistent with aspiration. Remains on the Flagyl Diflucan and Azactam. Patient is having issues with swallowing clear liquids, and he is supposed to be given only sick liquids because of potential aspiration with clear liquids. Or thin liquids. Patient will have a pacemaker implanted tomorrow, however he has a left subclavian central line on the left side, and may have to discontinue the central line, and I will arrange for a midline or a PICC line. CBC count today is 19.4. Hemoglobin is 11.0, rest of the labs were noted to be unremarkable, sodium is at the time at 147 and his main IV fluids changed to D5W. BUN is 53 creatinine 0.90. Patient was reevaluated today on 09/19/2020, patient remains in the ICU, remains on Precedex at 0.15 mcg/kg per hour. Patient is on TPN, given via PICC line. Remains on antibiotics for aspiration pneumonia including Azactam and Flagyl and clindamycin. Intermittently on BiPAP with IPAP of 12 EPAP of 5, presently on 11 L high flow nasal cannula. Chest x-ray continues to show bilateral airspace disease right upper lobe and left midlung involvement. Continues to have third- degree AV block and with was taken off the temporary pacemaker, patient was noted to have even asystole. He is pacemaker dependent. Patient is scheduled to have a temporary pacemaker/external to be done tomorrow no clear-cut reason why the patient could not have permanent pacemaker implantation. At any rate pulmonary-min the patient continues to gradually improve, and remains empirically on antibiotics, no specific cultures were noted to be positive. CBC continues to show leukocytosis with WBC of 23.5 hemoglobin is 11.9 electrolytes are normal except for elevated sodium of 147. Reevaluated today on 09/20/2020, patient remains in the ICU, remains on Precedex at 0.15 mcg/kg/h, remains on TPN, IV fluid is at KVO. Chest x-ray continues to show bilateral airspace disease. His antibiotics coverage was increased by infectious disease on the case, he is presently on vancomycin and Flagyl Diflucan and Azactam. Patient remains 100% paced. Going for another pacemaker implantation today. Patient is on 10 L high flow nasal cannula, does not seem to be in distress, but on physical examination he has rhonchi and wheezes bilaterally. And I recommended more diuretics to be given to the patient, he is now on Lasix 40 mg IV push every 12 hours. Reevaluated today , patient remains in the ICU, patient had his external temporary pacemaker placed yesterday. Today continues to have significantdisease involving the right upper lobe and the left midlung as well as left lower lobe. Patient continues to have difficulty swallowing, and he remains on TPN, hence I recommended surgical evaluation for possible PEG tube placement. Remains on multiple antibiotics for his aspiration pneumonia. Solu- Medrol was added for his cough and wheezing. Remains on Precedex which I plan to discontinue hopefully today. Patient is intermittently on BiPAP with IPAP of 12 EPAP of 5 and FiO2 60%, presently on 11 L high flow nasal cannula with O2 saturation 94%. Reevaluated today on 09/22/2020, remains in the ICU, doing fairly well, no major change in the last 24 hours. Remains nothing by mouth, scheduled to have a PEG tube placement on Thursday. Asked x-ray continues to show significant airspace disease bilaterally. And that's felt to be related to aspiration. Patient remains on a minimal dose of Precedex which I will discontinue today. He is hemodynamically stable, not requiring any pressors. Remains on 6 L high flow nasal cannula. At Precedex 0.1 mcg/kg/m. TPN is running at 75 ML per hour, remains on antibiotics in the form of vancomycin and Azactam Reevaluated today on 09/23/2020, patient is basically about the same, a bit more anxious today, he was a bit confused last night, was doing better when he was on Precedex, hence we'll resume the Precedex again today. Chest x-ray continues to show significant airspace disease in his lungs bilaterally left more so than right. Patient remains on TPN, he is nothing by mouth, supposed to have a PEG tube placed tomorrow. His O2 requirement has gone up, he is now on 15 L nonrebreather mask, and I have cut down his Solu-Medrol to 40 mg IV push every 12 hours hoping to improve his confusion as it may be is steroids related mental status change. Cultures remain negative. Chest x-ray remains considerably. Patient again remains nothing by mouth. And he remains on vancomycin and Azactam Objective - Vital Signs Vital signs: Vital Signs Temp 97.4 F L 01/10/21 12:00 Pulse 82 09/23/20 12:00 Resp 22 09/23/20 12:00 BP 105/69 09/23/20 12:00 Pulse Ox 98 09/23/20 12:00 Intake & Output 09/22/20 09/23/20 09/23/20 18:59 06:59 18:59 Intake Total 2902.85 1530.83 1079.79 Output Total 1765 1150 1260 Balance 1137.85 380.83 -180.21 Weight 80.4 kg 80.4 kg Intake: IV 1430 1530.83 805 0.9 NACL 330 260 130 Aztreonam 2 gm In Sodium 200 100 100 Chloride 0.9% 100 ml @ 33 .3 mls/hr IVPB Q8HR [facility] Rx#:[id number] Fat Emulsion 20% 250 ml @ 20.83 20.833 mls/hr IV DAILY [facility] Rx#:[id number] Potassium Chloride 10 meq 200 In Water For Injection 1 100ml.bag @ 100 mls/hr IVPB Q1H [facility] Rx#: [id number] Potassium Phosphate 30 900 900 mmol Magnesium Sulfate gm 1 gm Calcium Gluconate 1 gm In Amino Acids 5 %/ Dextrose 20 % 1,000 ml @ 75 mls/hr IV .BY DURATION [facility] Rx#:[id number] Potassium Phosphate 30 375 mmol Magnesium Sulfate gm 1 gm Calcium Gluconate 1 gm Mvi, Adult No.4 with Vit K 10 ml Trace (Conc- 1Ml/Dose) 1 ml In Amino Acids 5 %/Dextrose 20 % 1 ,000 ml @ 75 mls/hr IV . BY DURATION [facility] Rx#: [id number] Vancomycin 1,250 mg In 250 Sodium Chloride 0.9% 250 ml @ 125 mls/hr IVPB Q12H [facility] Rx#:[id number] Intake, IV Titration 1472.85 274.79 Amount Dexmedetomidine/0.9% NaCl 9.1 24.79 (Pmx) 400 mcg In Empty Bag 1 bag @ Titrate IV . Q0M [facility] Rx#:[id number] Fluconazole in NaCl,Iso- 200 Osm 200 mg In Saline 1 100ml.bag @ 100 mls/hr IVPB DAILY@1200 [facility] Rx#: [id number] Potassium Phosphate 30 938.75 mmol Magnesium Sulfate gm 1 gm Calcium Gluconate 1 gm In Amino Acids 5 %/ Dextrose 20 % 1,000 ml @ 75 mls/hr IV .BY DURATION [facility] Rx#:[id number] Potassium Phosphate 30 75 mmol Magnesium Sulfate gm 1 gm Calcium Gluconate 1 gm Mvi, Adult No.4 with Vit K 10 ml Trace (Conc- 1Ml/Dose) 1 ml In Amino Acids 5 %/Dextrose 20 % 1 ,000 ml @ 75 mls/hr IV . BY DURATION [facility] Rx#: [id number] Vancomycin 1,500 mg In 250 250 Sodium Chloride 0.9% 250 ml @ 125 mls/hr IVPB BID@ 1100,2100 [facility] Rx#: [id number] Output: Urine 1765 1150 1260 Other: Voiding Method Indwelling Catheter Indwelling Catheter Indwelling Catheter # Bowel Movements 1 1 ABP, PAP, CO, CI - Last Documented Arterial Blood Pressure 71/59 - Exam Gen: Revealed 74-year-old white male in no distress. On nonrebreather mask. HEENT: normocephalic, atraumatic, PERRLA, nonicteric. EOMI. Resp: Symmetrical chest expansion rhonchi and crackles noted bilaterally. CVS: Normal S1 and S2, no S3 gallop. No murmur. GI: Soft nontender no megaly no rebound, large ventral hernia is noted. : Bae catheter is present otherwise negative. MSK: 1+ bipedal edema. Neuro: Alert and oriented 3 focal neurologic deficits. According to the nurses intermittently confused. Psych: Normal mood, affect and normal mental status examination today. - Labs CBC & Chem 7: 09/23/20 03:55 09/23/20 03:55 Labs: Abnormal Lab Results - Last 24 Hours (Table) 09/22/20 09/22/20 09/23/20 Range/Units 17:27 23:30 03:55 WBC (3.8-10.6) k/uL RBC (4.30-5.90) m/uL Hgb (13.0-17.5) gm/dL Hct (39.0-53.0) % Plt Count (150-450) k/uL Chloride 111 H (98-107) mmol/L BUN 38 H (9-20) mg/dL Creatinine 0.61 L (0.66-1.25) mg/dL Glucose 207 H (74-99) mg/dL POC Glucose (mg/dL) 238 H 146 H (75-99) mg/dL 09/23/20 09/23/20 09/23/20 Range/Units 03:55 05:36 11:59 WBC 24.4 H (3.8-10.6) k/uL RBC 3.82 L (4.30-5.90) m/uL Hgb 11.8 L (13.0-17.5) gm/dL Hct 36.9 L (39.0-53.0) % Plt Count 786 H (150-450) k/uL Chloride (98-107) mmol/L BUN (9-20) mg/dL Creatinine (0.66-1.25) mg/dL Glucose (74-99) mg/dL POC Glucose (mg/dL) 222 H 243 H (75-99) mg/dL Assessment and Plan Assessment: Impression: Acute hypoxic respiratory failure secondary to aspiration pneumonia. Acute complete heart block requiring temporary pacemaker implantation. Severe metabolic acidosis, resolved. Acute kidney injury secondary to acute tubular necrosis. Dyslipidemia. Hypothyroidism. Intermittent episodes of confusion secondary to acute metabolic encephalopathy, improving. Acute toxic metabolic encephalopathy and intermittent confusion, improved with Precedex. Hence we'll place back on Precedex. Dysphagia, patient unable to swallow, PEG tube is scheduled to be done on Thursday. Recommendation: Continue antibiotics , empirically. Continue GI and DVT prophylaxis Continue to monitor the patient in the ICU and titrate oxygen accordingly. Continue IV Solu-Medrol. However cut down the dose to 40 mg IV push twice a day PEG tube to be placed on Thursday. Discontinue Precedex today. Titrate oxygen accordingly. Continue to monitor daily labs. Continue nutritional support/TPN via PICC line. We'll continue to follow. Prognosis remains fairly guarded Time with Patient: Less than 30
[2020-09-23] MEDS: DEXMEDETOMIDINE/0.9% NACL(PMX) 400 MCG in EMPTY BAG 1 BAG IV SCH ×2 (14:31→21:41)
--- NOTE | 2020-09-23 15:10 | P.PN ---
Subjective Progress Note Date: 09/23/20 Principal diagnosis: Respiratory failure Patient was intermittently confused last night after precedex was discontinued, precedex was restarted this morning due to confusion. Patient currently sitting on the chair for the first time in this hospitalization. He is down from 15 to 9 L of oxygen. He denied having shortness of breath or pain. Objective - Vital Signs Vital signs: Vital Signs Temp 97.4 F L 09/23/20 12:00 Pulse 75 09/23/20 14:00 Resp 17 09/23/20 14:00 BP 99/57 09/23/20 14:00 Pulse Ox 97 09/23/20 14:00 Intake & Output 09/22/20 09/23/20 09/23/20 18:59 06:59 18:59 Intake Total 2902.85 1530.83 1344.79 Output Total 1765 1150 1560 Balance 1137.85 380.83 -215.21 Weight 80.4 kg 80.4 kg Intake: IV 1430 1530.83 920 0.9 NACL 330 260 170 Aztreonam 2 gm In Sodium 200 100 100 Chloride 0.9% 100 ml @ 33 .3 mls/hr IVPB Q8HR [facility] Rx#:[id number] Fat Emulsion 20% 250 ml @ 20.83 20.833 mls/hr IV DAILY [facility] Rx#:[id number] Potassium Chloride 10 meq 200 In Water For Injection 1 100ml.bag @ 100 mls/hr IVPB Q1H [facility] Rx#: [id number] Potassium Phosphate 30 900 900 mmol Magnesium Sulfate gm 1 gm Calcium Gluconate 1 gm In Amino Acids 5 %/ Dextrose 20 % 1,000 ml @ 75 mls/hr IV .BY DURATION [facility] Rx#:[id number] Potassium Phosphate 30 450 mmol Magnesium Sulfate gm 1 gm Calcium Gluconate 1 gm Mvi, Adult No.4 with Vit K 10 ml Trace (Conc- 1Ml/Dose) 1 ml In Amino Acids 5 %/Dextrose 20 % 1 ,000 ml @ 75 mls/hr IV . BY DURATION [facility] Rx#: [id number] Vancomycin 1,250 mg In 250 Sodium Chloride 0.9% 250 ml @ 125 mls/hr IVPB Q12H [facility] Rx#:[id number] Intake, IV Titration 1472.85 424.79 Amount Dexmedetomidine/0.9% NaCl 9.1 24.79 (Pmx) 400 mcg In Empty Bag 1 bag @ Titrate IV . Q0M [facility] Rx#:[id number] Fluconazole in NaCl,Iso- 200 Osm 200 mg In Saline 1 100ml.bag @ 100 mls/hr IVPB DAILY@1200 [facility] Rx#: [id number] Potassium Phosphate 30 938.75 mmol Magnesium Sulfate gm 1 gm Calcium Gluconate 1 gm In Amino Acids 5 %/ Dextrose 20 % 1,000 ml @ 75 mls/hr IV .BY DURATION [facility] Rx#:[id number] Potassium Phosphate 30 150 mmol Magnesium Sulfate gm 1 gm Calcium Gluconate 1 gm In Amino Acids 5 %/ Dextrose 20 % 1,000 ml @ 75 mls/hr IV .BY DURATION [facility] Rx#:[id number] Potassium Phosphate 30 75 mmol Magnesium Sulfate gm 1 gm Calcium Gluconate 1 gm Mvi, Adult No.4 with Vit K 10 ml Trace (Conc- 1Ml/Dose) 1 ml In Amino Acids 5 %/Dextrose 20 % 1 ,000 ml @ 75 mls/hr IV . BY DURATION [facility] Rx#: [id number] Vancomycin 1,500 mg In 250 250 Sodium Chloride 0.9% 250 ml @ 125 mls/hr IVPB BID@ 1100,2100 [facility] Rx#: [id number] Output: Urine 1765 1150 1560 Other: Voiding Method Indwelling Catheter Indwelling Catheter Indwelling Catheter # Bowel Movements 1 1 ABP, PAP, CO, CI - Last Documented Arterial Blood Pressure 71/59 - Exam Gen: No acute distress. HEENT: normocephalic, atraumatic, good hearing acuity, moist mucous membranes Resp: Coarse breath sounds bilaterally CVS: RRR, S1 and S2 normal. good distal perfusion x 4, no appreciable murmurs GI: soft, NTTP, ND. Large ventral hernia. : no SPT, no CVAT, torre catheter is present MSK: 1+ pitting edema, no clubbing Neuro: non-focal, moving all extremities Psych: confused. Disoriented. - Labs CBC & Chem 7: 09/23/20 03:55 09/23/20 03:55 Labs: Abnormal Lab Results - Last 24 Hours (Table) 09/22/20 09/22/20 09/23/20 Range/Units 17:27 23:30 03:55 WBC (3.8-10.6) k/uL RBC (4.30-5.90) m/uL Hgb (13.0-17.5) gm/dL Hct (39.0-53.0) % Plt Count (150-450) k/uL Chloride 111 H (98-107) mmol/L BUN 38 H (9-20) mg/dL Creatinine 0.61 L (0.66-1.25) mg/dL Glucose 207 H (74-99) mg/dL POC Glucose (mg/dL) 238 H 146 H (75-99) mg/dL 09/23/20 09/23/20 09/23/20 Range/Units 03:55 05:36 11:59 WBC 24.4 H (3.8-10.6) k/uL RBC 3.82 L (4.30-5.90) m/uL Hgb 11.8 L (13.0-17.5) gm/dL Hct 36.9 L (39.0-53.0) % Plt Count 786 H (150-450) k/uL Chloride (98-107) mmol/L BUN (9-20) mg/dL Creatinine (0.66-1.25) mg/dL Glucose (74-99) mg/dL POC Glucose (mg/dL) 222 H 243 H (75-99) mg/dL Assessment and Plan Plan: Unresponsiveness, suspected secondary to bradycardia with complete heart block Acute hypoxic respiratory failure, on mechanical ventilation Community-acquired pneumonia versus aspiration pneumonia -Initially had transvenous pacer for third-degree AV block on 09/08/20, then had temporary pacer placed. -Status post bronch with BAL on 09/11, cultures negative -COVID 19 PCR negative -Restarted on steroids by pulmonary -Infectious disease following: Patient on aztreonam, Flagyl, and Fluconazole. Clindamycin changed to vancomycin 09/19 due to persistent leukocytosis. -Echocardiogram unremarkable with LVEF 55-60% and normal LV wall thickness Chronic aspiration/moderate severe malnutrition Patient continues to aspirate on feeding trials Continue TPN Discussed with , she is okay with proceeding to a feeding tube if necessary. Surgery consulted for PEG tube placement tomorrow. Acute delirium/agitation Precedex gtt Haldol when necessary Steroid-induced hyperglycemia A1c was normal Start Lantus 5 units daily Continue sliding scale insulin with blood sugar checks every 6 hours. Fluid overload Continue lasix Third-degree heart block -Cardiology recommendations. -Temporary pacer placed -Planning permanent pacemaker placement once leukocytosis, lung infection and o xygenation improved. Elevated troponin - due to hypoxemia - not consistent with acute coronary syndrome. Hypothyroidism -Continue Synthroid Lactic acidosis, resolved Hyponatremia, hypernatremia resolved Acute kidney injury, resolved General weakness PT following DVT prophylaxis: heparin Discussed with: patient, nursing Anticipated discharge: 3 days, Anticipated discharge place: likely will need rehab A total of 25 minutes was spent on the care of this complex patient more than 50% of the time was spent in counseling and care coordination.
[2020-09-23 17:56] LABS: Glucose,Whole Blood 274 mg/dL (75-99)
--- NOTE | 2020-09-23 20:04 | PN ---
PROGRESS NOTE DATE OF SERVICE: 09/23/2020 REASON FOR FOLLOWUP: Pneumonia, elevated white count. INTERVAL HISTORY: The patient is currently afebrile. The patient is hemodynamically stable, not on any pressor support. The patient is currently on 5 L nasal cannula. He was noted to be slightly more confused per the nursing staff. No vomiting or any diarrhea has been reported. PHYSICAL EXAMINATION: Blood pressure 113/67, pulse of 75, temperature 98. He is 95% on 5 L nasal cannula. General description is an elderly male up in the chair in no distress. RESPIRATORY SYSTEM: Unlabored breathing with decreased breath sounds at the base. No wheeze. HEART: S1, S2. Regular rate and rhythm. ABDOMEN: Soft. No tenderness. LABS: White count is 24,000. Culture so far negative. DIAGNOSTIC IMPRESSION AND PLAN: Patient admitted to hospital with episode of unresponsiveness with concern for aspiration pneumonia, possible heart block, with a transvenous pacer. Culture has been negative so far. He does have MULTIPLE ANTIBIOTIC ALLERGIES, currently covered with Azactam and vancomycin. Some of the white count could be related to his steroids, as no obvious focus of infection. Continue with supportive care. MMODL / IJN: [id number] /
[2020-09-23] MEDS ORDERED: INSULIN DETEMIR (LEVEMIR) 100 UNIT/ML SYR SQ SCH (21:00)
[2020-09-23 23:46] LABS: Glucose,Whole Blood 205 mg/dL (75-99)
[2020-09-24] MEDS: CALCIUM GLUCONATE IV SCH ×19 (03:33→16:12)
[2020-09-24] MEDS: POTASSIUM PHOSPHATE IV SCH ×19 (03:33→16:12)
[2020-09-24] MEDS: MAGNESIUM SULFATE IV SCH ×19 (03:33→16:12)
[2020-09-24] MEDS: [UNRECOGNIZED DRUG - OTHER] IV SCH ×12 (03:33→03:34)
[2020-09-24 05:18] LABS: African American GFR (CKD) >90 (>60 ml/min/1.73 sqM); Albumin 2.6 g/dL (3.5-5.0); Anion Gap 6 mmol/L; Blood Urea Nitrogen 40 mg/dL (9-20); Calcium 8.7 mg/dL (8.4-10.2); Carbon Dioxide 26 mmol/L (22-30); Chloride 111 mmol/L (98-107); Glucose 202 mg/dL (74-99); Non-African American GFR(CKD) >90 (>60 ml/min/1.73 sqM); Phosphorus 4.6 mg/dL (2.5-4.5); Potassium 3.8 mmol/L (3.5-5.1); Sodium 143 mmol/L (137-145); Triglycerides 79 mg/dL (<150)
[2020-09-24] MEDS ORDERED: POTASSIUM CHLORIDE 20 MEQ in WATER FOR INJECTION 1 100ML.BAG IVPB STA (05:41)
[2020-09-24 05:51] LABS: Glucose,Whole Blood 196 mg/dL (75-99)
[2020-09-24] MEDS: INSULIN ASPART (NovoLOG) 100 UNIT/ML VIAL SQ SCH ×4 (05:54→23:50)
[2020-09-24 06:38] LABS: Basophils # (A) 0.1 k/uL (0-0.2); Basophils % (A) 1 %; Eosinophils % (A) 0 %; HCT 35.5 % (39.0-53.0); HGB 11.3 gm/dL (13.0-17.5); Hypochromasia Moderate; Lymphocytes # (A) 0.6 k/uL (1.0-4.8); Lymphocytes % (A) 4 %; MCH 31.4 pg (25.0-35.0); MCHC 31.9 g/dL (31.0-37.0); MCV 98.4 fL (80.0-100.0); Mean Platelet Volume 8.7; Monocytes # (A) 0.9 k/uL (0-1.0); Monocytes % (A) 6 %; Neutrophils # (A) 13.3 k/uL (1.3-7.7); Neutrophils % (A) 86 %; Platelet Count 611 k/uL (150-450); RBC 3.61 m/uL (4.30-5.90); RDW 14.2 % (11.5-15.5); WBC 15.5 k/uL (3.8-10.6)
[2020-09-24] MEDS: IPRATROPIUM-ALBUTEROL 3 ML NEB INHALATION SCH ×4 (07:29→20:30)
--- NOTE | 2020-09-24 08:23 | XR ---
EXAMINATION TYPE: XR chest 1V portable DATE OF EXAM: 09/24/2020 COMPARISON: Chest x-ray 09/23/2020 HISTORY: Pneumonia TECHNIQUE: Single frontal view of the chest is obtained. FINDINGS: There is a generator in the right pectoral region, leads are present in the right atrium a nd ventricle. Heart size is stable. Interstitium is increased. There is a right-sided PICC line. Dist al tip of the right-sided PICC line courses toward the cavoatrial junction level. Heart size is uncha nged. No evident pneumothorax. Lung volumes are low and the patient is rotated. Patchy densities pres ent at the lung bases as well as the perihilar regions. Aorta is dense. IMPRESSION: Findings are similar to prior exam, correlate for possible edema, interstitial lung dise ase, pneumonia
[2020-09-24] MEDS: AZTREONAM 2 GM in SODIUM CHLORIDE 0.9% 100 ML IVPB SCH ×3 (08:27→23:49)
[2020-09-24] MEDS: PANTOPRAZOLE 40 MG/10 ML VIAL IVP SCH (08:28)
[2020-09-24] MEDS: FUROSEMIDE 10 MG/ML 4 ML VIAL IV SCH ×2 (08:28→21:14)
[2020-09-24] MEDS: HEPARIN SODIUM,PORCINE 5,000 UNIT/ML 1 ML VIAL SQ SCH ×3 (08:28→23:50)
[2020-09-24] MEDS: LEVOTHYROXINE IVP 100 MCG/5 ML VIAL IV SCH (08:28)
[2020-09-24] MEDS: methylPREDNISolone SOD SUCCI 40 MG/ML 1 ML VIAL IV SCH ×2 (08:28→21:14)
[2020-09-24] MEDS: FAT EMULSION 20% 250 ML IV SCH (08:46)
--- NOTE | 2020-09-24 09:58 | P.PN ---
Subjective HISTORY OF PRESENTING ILLNESS This is a pleasant 74-year-old male past medical history significant for hypertension only on spironolactone and abdominal ventral hernia. Patient was found to be somewhat confused and initially thought he was having a stroke as he was unresponsive. Patient was noted to be bradycardic with third-degree heart block and TVP was initially placed then an externalized PPM was placed. Patient was intubated and then extubated however has had recurrent aspiration and aspiration pneumonia. 09/24/2020 Patient seen and examined. Patient is scheduled for a PEG tube placement. He denies any chest pain or pressure. Continues to be paced with his externalized pacemaker. Continues to have shortness of breath however unchanged. REVIEW OF SYSTEMS At the time of my exam: Denies chest pain or pressure. No abdominal pain. Continued dysphasia. Positive fatigue. PHYSICAL EXAMINATION Blood pressure 108/78, pulse 67, oxygen saturation 96% on 5 L high flow CONSTITUTIONAL: Chronically ill-appearing, alert and oriented HEENT: Head is normocephalic. Pupils are equal, round. Sclerae anicteric. Mucous membranes of the mouth are moist. No JVD. No carotid bruit. CHEST EXAMINATION: Diffuse rhonchi bilaterally HEART EXAMINATION: Regular rate and rhythm, S1, S2 heard. No murmurs, gallops or rub. ABDOMEN: Soft, nontender. Positive bowel sounds. EXTREMITIES: 2+ peripheral pulses, no lower extremity edema and no calf tenderness, + cool extremities and mild cyanosis of extremities. NEUROLOGIC EXAMINATION: Alert and oriented ASSESSMENT 1. Third-degree heart block, status post externalized pacemaker 2. Acute hypoxemic respiratory failure with recurrent aspiration 3. Toxic metabolic encephalopathy, improved 4. Elevated troponin, likely type II mechanism from sepsis 5. Lactic acidosis, improved 6. Acute kidney injury, improved 7. History of hypertension, currently off antihypertensives 8. Aspiration 9. Leukocytosis, likely related to aspiration PLAN Patient is scheduled to undergo PEG tube placement. Continue to monitor leukocytosis before consideration of changing externalized pacemaker for permanent pacemaker. Continue supportive care. Objective - Vital Signs Vital signs: Vital Signs Temp 97.5 F L 09/24/20 04:00 Pulse 73 09/24/20 07:41 Resp 24 09/24/20 07:00 BP 108/78 09/24/20 07:00 Pulse Ox 96 09/24/20 07:00 Intake & Output 09/23/20 09/24/20 09/24/20 18:59 06:59 18:59 Intake Total 1840.79 2284.06 95 Output Total 1815 1625 65 Balance 25.79 659.06 30 Weight 80.4 kg 80 kg Intake: IV 1100 1155 95 0.9 NACL 250 190 20 Aztreonam 2 gm In Sodium 200 100 Chloride 0.9% 100 ml @ 33 .3 mls/hr IVPB Q8HR [facility] Rx#:[id number] Fat Emulsion 20% 250 ml @ 40 20.833 mls/hr IV DAILY [facility] Rx#:[id number] Potassium Chloride 10 meq 200 In Water For Injection 1 100ml.bag @ 100 mls/hr IVPB Q1H [facility] Rx#: [id number] Potassium Phosphate 30 300 mmol Magnesium Sulfate gm 1 gm Calcium Gluconate 1 gm In Amino Acids 5 %/ Dextrose 20 % 1,000 ml @ 75 mls/hr IV .BY DURATION [facility] Rx#:[id number] Potassium Phosphate 30 525 75 mmol Magnesium Sulfate gm 1 gm Calcium Gluconate 1 gm In Amino Acids 5 %/ Dextrose 20 % 1,000 ml @ 75 mls/hr IV .BY DURATION [facility] Rx#:[id number] Potassium Phosphate 30 450 mmol Magnesium Sulfate gm 1 gm Calcium Gluconate 1 gm Mvi, Adult No.4 with Vit K 10 ml Trace (Conc- 1Ml/Dose) 1 ml In Amino Acids 5 %/Dextrose 20 % 1 ,000 ml @ 75 mls/hr IV . BY DURATION [facility] Rx#: [id number] Intake, IV Titration 740.79 1129.06 Amount Dexmedetomidine/0.9% NaCl 24.79 (Pmx) 400 mcg In Empty Bag 1 bag @ Titrate IV . Q0M [facility] Rx#:[id number] Dexmedetomidine/0.9% NaCl 16 32.81 (Pmx) 400 mcg In Empty Bag 1 bag @ Titrate IV . Q0M [facility] Rx#:[id number] Potassium Phosphate 30 450 1096.25 mmol Magnesium Sulfate gm 1 gm Calcium Gluconate 1 gm In Amino Acids 5 %/ Dextrose 20 % 1,000 ml @ 75 mls/hr IV .BY DURATION [facility] Rx#:[id number] Vancomycin 1,500 mg In 250 Sodium Chloride 0.9% 250 ml @ 125 mls/hr IVPB BID@ 1100,2100 [facility] Rx#: [id number] Output: Urine 1815 1625 65 Other: Voiding Method Indwelling Catheter Indwelling Catheter # Bowel Movements 1 ABP, PAP, CO, CI - Last Documented Arterial Blood Pressure 71/59 - Labs CBC & Chem 7: 09/24/20 03:59 09/24/20 03:59 Labs: Abnormal Lab Results - Last 24 Hours (Table) 09/23/20 09/23/20 09/23/20 Range/Units 11:59 17:55 23:45 WBC (3.8-10.6) k/uL RBC (4.30-5.90) m/uL Hgb (13.0-17.5) gm/dL Hct (39.0-53.0) % Plt Count (150-450) k/uL Neutrophils # (1.3-7.7) k/uL Lymphocytes # (1.0-4.8) k/uL Chloride (98-107) mmol/L BUN (9-20) mg/dL Creatinine (0.66-1.25) mg/dL Glucose (74-99) mg/dL POC Glucose (mg/dL) 243 H 274 H 205 H (75-99) mg/dL Phosphorus (2.5-4.5) mg/dL Albumin (3.5-5.0) g/dL 09/24/20 09/24/20 09/24/20 Range/Units 03:59 03:59 05:49 WBC 15.5 H (3.8-10.6) k/uL RBC 3.61 L (4.30-5.90) m/uL Hgb 11.3 L (13.0-17.5) gm/dL Hct 35.5 L (39.0-53.0) % Plt Count 611 H (150-450) k/uL Neutrophils # 13.3 H (1.3-7.7) k/uL Lymphocytes # 0.6 L (1.0-4.8) k/uL Chloride 111 H (98-107) mmol/L BUN 40 H (9-20) mg/dL Creatinine 0.59 L (0.66-1.25) mg/dL Glucose 202 H (74-99) mg/dL POC Glucose (mg/dL) 196 H (75-99) mg/dL Phosphorus 4.6 H (2.5-4.5) mg/dL Albumin 2.6 L (3.5-5.0) g/dL
[2020-09-24] MEDS ORDERED: VANCOMYCIN TROUGH DUE 1 EACH MISC MISCELLANE ONE (10:00)
--- NOTE | 2020-09-24 10:18 | P.PN ---
Subjective Progress Note Date: 09/24/20 Principal diagnosis: Aspiration pneumonia, third-degree AV block On 09/24/2020 patient seen in follow-up in the intensive care unit, patient was admitted on 09/08/2020 with a diagnosis of aspiration pneumonia, sepsis, third- degree AV block. He was started on antibiotics, he required intubation and placement on mechanical ventilator on 09/08/2020 and was successfully weaned and extubated from mechanical ventilator on 09/13/2020. Patient remains in the third-degree AV block, external right subclavian pacemaker was placed the intention of replacing it with the permanent pacemaker down the road once the patient completely requires from his pneumonia. He seen in follow-up today on the 09/24/2020 in the intensive care unit, he is awake and alert, his FiO2 is currently down to 5 L, his breathing comfortably, denies any acute distress, no altered mentation, he is answering questions appropriately, remains on Precedex at 0.2 mics per kilo per minute, 0.9 at 20 ML per hour, TPN at 75 ML per hour, and lipids. Patient has been nothing by mouth in view of his aspiration, and surgical consultation was placed and today patient will be taken to the or for placement of a PEG tube. His vital signs have been stable, his been afebrile, he is not on any vasopressor support. His chest x-ray has been reviewed showing interstitial edema, low lung volumes, and patchy densities at the lung bases. She remains on IV Lasix at 40 mg every 12 hours, and antibiotic coverage in the form of Azactam, and vancomycin. Patient is also on IV steroids at 40 mg every 12 hours. He is status post bronchoscopy with bronchoalveolar lavage, and his BAL cultures have been negative. Today's labs have been reviewed, with blood cell count is trending down, down to 15.5 on today's labs, hemoglobin is 11.3, sodium is 143, potassium 3.8, chloride is 111, CO2 is 26, UN is 40 creatinine 0.59. Patient is an +684 mL fluid balance over the last 24 hours. His not appear to be in any acute distress. Objective - Vital Signs Vital signs: Vital Signs Temp 97.7 F 09/24/20 08:00 Pulse 75 09/24/20 09:00 Resp 14 09/24/20 09:00 BP 111/66 09/24/20 09:00 Pulse Ox 94 L 09/24/20 09:00 Intake & Output 09/23/20 09/24/20 09/24/20 18:59 06:59 18:59 Intake Total 1840.79 2284.06 480.8 Output Total 1815 1625 550 Balance 25.79 659.06 -69.2 Weight 80.4 kg 80 kg Intake: IV 1100 1155 330.8 0.9 NACL 250 190 60 Aztreonam 2 gm In Sodium 200 100 100 Chloride 0.9% 100 ml @ 33 .3 mls/hr IVPB Q8HR [facility] Rx#:[id number] Fat Emulsion 20% 250 ml @ 40 20.8 20.833 mls/hr IV DAILY [facility] Rx#:[id number] Potassium Chloride 10 meq 200 In Water For Injection 1 100ml.bag @ 100 mls/hr IVPB Q1H [facility] Rx#: [id number] Potassium Phosphate 30 300 mmol Magnesium Sulfate gm 1 gm Calcium Gluconate 1 gm In Amino Acids 5 %/ Dextrose 20 % 1,000 ml @ 75 mls/hr IV .BY DURATION [facility] Rx#:[id number] Potassium Phosphate 30 525 75 mmol Magnesium Sulfate gm 1 gm Calcium Gluconate 1 gm In Amino Acids 5 %/ Dextrose 20 % 1,000 ml @ 75 mls/hr IV .BY DURATION [facility] Rx#:[id number] Potassium Phosphate 30 450 75 mmol Magnesium Sulfate gm 1 gm Calcium Gluconate 1 gm Mvi, Adult No.4 with Vit K 10 ml Trace (Conc- 1Ml/Dose) 1 ml In Amino Acids 5 %/Dextrose 20 % 1 ,000 ml @ 75 mls/hr IV . BY DURATION [facility] Rx#: [id number] Intake, IV Titration 740.79 1129.06 150 Amount Dexmedetomidine/0.9% NaCl 24.79 (Pmx) 400 mcg In Empty Bag 1 bag @ Titrate IV . Q0M [facility] Rx#:[id number] Dexmedetomidine/0.9% NaCl 16 32.81 (Pmx) 400 mcg In Empty Bag 1 bag @ Titrate IV . Q0M [facility] Rx#:[id number] Potassium Phosphate 20 150 mmol Magnesium Sulfate gm 1 gm Calcium Gluconate 1 gm Mvi, Adult No.4 with Vit K 10 ml Trace (Conc- 1Ml/Dose) 1 ml Potassium Acetate 14 meq In Amino Acids 5 %/Dextrose 20 % 1 ,000 ml @ 75 mls/hr IV . BY DURATION [facility] Rx#: [id number] Potassium Phosphate 30 450 1096.25 mmol Magnesium Sulfate gm 1 gm Calcium Gluconate 1 gm In Amino Acids 5 %/ Dextrose 20 % 1,000 ml @ 75 mls/hr IV .BY DURATION [facility] Rx#:[id number] Vancomycin 1,500 mg In 250 Sodium Chloride 0.9% 250 ml @ 125 mls/hr IVPB BID@ 1100,2100 [facility] Rx#: [id number] Output: Urine 1815 1625 550 Other: Voiding Method Indwelling Catheter Indwelling Catheter # Bowel Movements 1 ABP, PAP, CO, CI - Last Documented Arterial Blood Pressure 71/59 - Exam GENERAL EXAM: 74-year-old white male, 5 L of oxygen, no acute distress comfortable in no apparent distress. HEAD: Normocephalic/atraumatic. EYES: Normal reaction of pupils, equal size. Conjunctiva pink, sclera white. NOSE: Clear with pink turbinates. THROAT: No erythema or exudates. NECK: No masses, no JVD, no thyroid enlargement, no adenopathy. CHEST: No chest wall deformity. Symmetrical expansion. Right subclavian area external pacemaker, patient is 100% AV paced on the monitor LUNGS: Equal air entry with no crackles, wheeze, rhonchi or dullness. CVS: Irregular rate and rhythm, normal S1 and S2, no gallops, no murmurs, no rubs ABDOMEN: Soft, nontender. No hepatosplenomegaly, normal bowel sounds, no guarding or rigidity. EXTREMITIES: No clubbing, 1+ pretibial edema and mild upper extremity edema, no cyanosis, 2+ pulses and upper and lower extremities. MUSCULOSKELETAL: Muscle strength and tone normal. SPINE: No scoliosis or deformity SKIN: No rashes CENTRAL NERVOUS SYSTEM: Alert and oriented -3. No focal deficits, tone is normal in all 4 extremities. PSYCHIATRIC: Alert and oriented -3. Appropriate affect. Intact judgment and insight. - Labs CBC & Chem 7: 09/24/20 03:59 09/24/20 03:59 Labs: Abnormal Lab Results - Last 24 Hours (Table) 09/23/20 09/23/20 09/23/20 Range/Units 11:59 17:55 23:45 WBC (3.8-10.6) k/uL RBC (4.30-5.90) m/uL Hgb (13.0-17.5) gm/dL Hct (39.0-53.0) % Plt Count (150-450) k/uL Neutrophils # (1.3-7.7) k/uL Lymphocytes # (1.0-4.8) k/uL Chloride (98-107) mmol/L BUN (9-20) mg/dL Creatinine (0.66-1.25) mg/dL Glucose (74-99) mg/dL POC Glucose (mg/dL) 243 H 274 H 205 H (75-99) mg/dL Phosphorus (2.5-4.5) mg/dL Albumin (3.5-5.0) g/dL 09/24/20 09/24/20 09/24/20 Range/Units 03:59 03:59 05:49 WBC 15.5 H (3.8-10.6) k/uL RBC 3.61 L (4.30-5.90) m/uL Hgb 11.3 L (13.0-17.5) gm/dL Hct 35.5 L (39.0-53.0) % Plt Count 611 H (150-450) k/uL Neutrophils # 13.3 H (1.3-7.7) k/uL Lymphocytes # 0.6 L (1.0-4.8) k/uL Chloride 111 H (98-107) mmol/L BUN 40 H (9-20) mg/dL Creatinine 0.59 L (0.66-1.25) mg/dL Glucose 202 H (74-99) mg/dL POC Glucose (mg/dL) 196 H (75-99) mg/dL Phosphorus 4.6 H (2.5-4.5) mg/dL Albumin 2.6 L (3.5-5.0) g/dL Assessment and Plan Plan: Assessment: #1. Acute hypoxic restaurant failure secondary to aspiration pneumonia and a component of fluid overload, interstitial edema #2. Acute complete heart block requiring temporary pacemaker implantation, and patient currently has a right subclavian area external temporary pacemaker with intention of replacing of the permanent pacemaker down the road #3. Severe metabolic acidosis, resolved #4. Acute kidney injury secondary to acute tubular necrosis, improving #5. Dyslipidemia #6. Hypothyroidism #7. Intermittent episodes of confusion, related to acute metabolic encephalopathy, improving however patient remains on Precedex #8. Dysphagia, aspiration pneumonia, patient is scheduled for PEG tube rosita cement, has been on TPN for nutritional support Plan: Continue current antibiotics, continue IV diuretics, we will consider increasing IV diuretics continue weaning FiO2, incentive spirometer, continue IV Solu- Medrol, we'll try to wean the Precedex off and energy patient with Haldol or Seroquel. Patient is scheduled for PEG tube placement today, we'll continue monitoring the patient in the intensive care unit. Vital signs have been stable, chest x-ray has been reviewed, no worsening dyspnea, at times patient is confused but not agitated. We'll continue TPN for nutritional support until his enteral feedings can be started. I performed a history & physical examination of the patient and discussed their management with my nurse practitioner, Lilibeth Huitron. I reviewed the nurse practitioner's note and agree with the documented findings and plan of care. Lung sounds are positive for a few scattered rhonchi.. The findings and the impression was discussed with the patient. I attest to the documentation by the nurse practitioner. Time with Patient: Greater than 30
[2020-09-24 12:00] LABS: Glucose,Whole Blood 213 mg/dL (75-99)
[2020-09-24] MEDS ORDERED: LACTATED RINGERS 1,000 ML IV ONE (13:16)
[2020-09-24] MEDS ORDERED: PROPOFOL 10 MG/ML 20 ML VIAL IV ONE (13:27)
--- NOTE | 2020-09-24 14:03 | P.PN ---
Subjective Progress Note Date: 09/24/20 Patient is awake and alert this morning. He denies any specific concerns or complaints. Oxygen requirement improving. No acute events overnight reported by nursing staff. Objective - Vital Signs Vital signs: Vital Signs Temp 97.8 F 09/24/20 12:00 Pulse 82 09/24/20 12:00 Resp 27 H 09/24/20 12:00 BP 112/64 09/24/20 12:00 Pulse Ox 94 L 09/24/20 12:00 Intake & Output 09/23/20 09/24/20 09/24/20 18:59 06:59 18:59 Intake Total 1840.79 2284.06 944.0 Output Total 1815 1625 1415 Balance 25.79 659.06 -471.0 Weight 80.4 kg 80 kg Intake: IV 1100 1155 494.0 0.9 NACL 250 190 140 Aztreonam 2 gm In Sodium 200 100 100 Chloride 0.9% 100 ml @ 33 .3 mls/hr IVPB Q8HR [facility] Rx#:[id number] Fat Emulsion 20% 250 ml @ 40 104.0 20.833 mls/hr IV DAILY [facility] Rx#:[id number] Potassium Chloride 10 meq 200 In Water For Injection 1 100ml.bag @ 100 mls/hr IVPB Q1H [facility] Rx#: [id number] Potassium Phosphate 30 300 mmol Magnesium Sulfate gm 1 gm Calcium Gluconate 1 gm In Amino Acids 5 %/ Dextrose 20 % 1,000 ml @ 75 mls/hr IV .BY DURATION [facility] Rx#:[id number] Potassium Phosphate 30 525 75 mmol Magnesium Sulfate gm 1 gm Calcium Gluconate 1 gm In Amino Acids 5 %/ Dextrose 20 % 1,000 ml @ 75 mls/hr IV .BY DURATION [facility] Rx#:[id number] Potassium Phosphate 30 450 75 mmol Magnesium Sulfate gm 1 gm Calcium Gluconate 1 gm Mvi, Adult No.4 with Vit K 10 ml Trace (Conc- 1Ml/Dose) 1 ml In Amino Acids 5 %/Dextrose 20 % 1 ,000 ml @ 75 mls/hr IV . BY DURATION [facility] Rx#: [id number] Intake, IV Titration 740.79 1129.06 450 Amount Dexmedetomidine/0.9% NaCl 24.79 (Pmx) 400 mcg In Empty Bag 1 bag @ Titrate IV . Q0M [facility] Rx#:[id number] Dexmedetomidine/0.9% NaCl 16 32.81 (Pmx) 400 mcg In Empty Bag 1 bag @ Titrate IV . Q0M [facility] Rx#:[id number] Potassium Phosphate 20 450 mmol Magnesium Sulfate gm 1 gm Calcium Gluconate 1 gm Mvi, Adult No.4 with Vit K 10 ml Trace (Conc- 1Ml/Dose) 1 ml Potassium Acetate 14 meq In Amino Acids 5 %/Dextrose 20 % 1 ,000 ml @ 75 mls/hr IV . BY DURATION [facility] Rx#: [id number] Potassium Phosphate 30 450 1096.25 mmol Magnesium Sulfate gm 1 gm Calcium Gluconate 1 gm In Amino Acids 5 %/ Dextrose 20 % 1,000 ml @ 75 mls/hr IV .BY DURATION [facility] Rx#:[id number] Vancomycin 1,500 mg In 250 Sodium Chloride 0.9% 250 ml @ 125 mls/hr IVPB BID@ 1100,2100 [facility] Rx#: [id number] Output: Urine 1815 1625 1415 Other: Voiding Method Indwelling Catheter Indwelling Catheter Indwelling Catheter # Bowel Movements 1 ABP, PAP, CO, CI - Last Documented Arterial Blood Pressure 71/59 - Exam General: The patient is awake and alert, in no distress Eye: there is normal conjunctiva bilaterally. Neck: The neck is supple, there is no JVD. Cardiovascular: Normal S1-S2, no S3-S4, no murmurs. Respiratory: Lungs clear to auscultation bilaterally Gastrointestinal: Abdomen is soft, nontender Musculoskeletal: There is +1 pedal edema. Neurological:. Speech is normal. Skin: Skin is warm and dry - Labs CBC & Chem 7: 09/24/20 03:59 09/24/20 03:59 Labs: Abnormal Lab Results - Last 24 Hours (Table) 09/23/20 09/23/20 09/24/20 Range/Units 17:55 23:45 03:59 WBC (3.8-10.6) k/uL RBC (4.30-5.90) m/uL Hgb (13.0-17.5) gm/dL Hct (39.0-53.0) % Plt Count (150-450) k/uL Neutrophils # (1.3-7.7) k/uL Lymphocytes # (1.0-4.8) k/uL Chloride 111 H (98-107) mmol/L BUN 40 H (9-20) mg/dL Creatinine 0.59 L (0.66-1.25) mg/dL Glucose 202 H (74-99) mg/dL POC Glucose (mg/dL) 274 H 205 H (75-99) mg/dL Phosphorus 4.6 H (2.5-4.5) mg/dL Albumin 2.6 L (3.5-5.0) g/dL 09/24/20 09/24/20 09/24/20 Range/Units 03:59 05:49 11:59 WBC 15.5 H (3.8-10.6) k/uL RBC 3.61 L (4.30-5.90) m/uL Hgb 11.3 L (13.0-17.5) gm/dL Hct 35.5 L (39.0-53.0) % Plt Count 611 H (150-450) k/uL Neutrophils # 13.3 H (1.3-7.7) k/uL Lymphocytes # 0.6 L (1.0-4.8) k/uL Chloride (98-107) mmol/L BUN (9-20) mg/dL Creatinine (0.66-1.25) mg/dL Glucose (74-99) mg/dL POC Glucose (mg/dL) 196 H 213 H (75-99) mg/dL Phosphorus (2.5-4.5) mg/dL Albumin (3.5-5.0) g/dL Microbiology - Last 24 Hours (Table) 09/11/20 09:16 Fungal Culture - Preliminary Bronchoalviolar Lavage - Right Assessment and Plan Assessment: This is a 74-year-old male with past medical history noted below who was brought into the emergency room after he was found unresponsive by EMS and was having agonal breathing. Unresponsiveness, suspected secondary to bradycardia with complete heart block Acute hypoxic respiratory failure requiring intubation and mechanical ventilation. Now extubated Community-acquired pneumonia versus aspiration pneumonia -Initially had transvenous pacer for third-degree AV block on 09/08/20, then had temporary pacer placed. -Status post bronch with BAL on 09/11, cultures negative -COVID 19 PCR negative -Restarted on steroids by pulmonary -Infectious disease following: Patient on aztreonam, Flagyl, and Fluconazole. Clindamycin changed to vancomycin 09/19 due to persistent leukocytosis. -Echocardiogram unremarkable with LVEF 55-60% and normal LV wall thickness Chronic aspiration/moderate severe malnutrition Patient continues to aspirate on feeding trials Continue TPN, plan for PEG tube today Acute delirium/agitation, now resolved Requiring Precedex gtt Haldol when necessary Steroid-induced hyperglycemia A1c was normal Started Lantus 5 units daily Continue sliding scale insulin with blood sugar checks every 6 hours. Fluid overload Continue lasix Third-degree heart block -Cardiology recommendations. -Temporary pacer placed -Planning permanent pacemaker placement once leukocytosis, lung infection and oxygenation improved. Elevated troponin - due to hypoxemia - not consistent with acute coronary syndrome. Hypothyroidism -Continue Synthroid Lactic acidosis, resolved Hyponatremia, hypernatremia resolved Acute kidney injury, resolved General weakness PT following DVT prophylaxis: heparin Discussed with: patient, nursing Anticipated discharge: Pending clinical course Anticipated discharge place: likely will need rehab
[2020-09-24] MEDS: VANCOMYCIN 1,500 MG in SODIUM CHLORIDE 0.9% 250 ML IVPB SCH (14:06)
[2020-09-24] MEDS: [UNRECOGNIZED DRUG - OTHER] IV SCH ×7 (16:12)
[2020-09-24 17:45] LABS: Glucose,Whole Blood 229 mg/dL (75-99)
[2020-09-24] MEDS: INSULIN DETEMIR (LEVEMIR) 100 UNIT/ML SYR SQ SCH (21:14)
--- NOTE | 2020-09-24 22:22 | PN ---
PROGRESS NOTE DATE OF SERVICE: 09/24/2020 REASON FOR FOLLOWUP: Aspiration pneumonia and MULTIPLE ANTIBIOTIC ALLERGIES. INTERVAL HISTORY: Patient is currently afebrile. The patient seems to be slightly more awake and alert. He is breathing comfortably. Did have PEG tube placement today. No vomiting or diarrhea reported by the nursing staff. PHYSICAL EXAMINATION: Blood pressure 124/76, pulse of 84, temperature 97.5. He is 95% on 5 L nasal cannula. General description is an elderly male lying in bed in no distress. RESPIRATORY SYSTEM: Unlabored breathing with decreased breath sounds at the base. No wheeze. HEART: S1, S2. Regular rate and rhythm. ABDOMEN: Soft. No tenderness. LABS: Hemoglobin is 11.3, white count 15.5. BUN of 40, creatinine 0.59. DIAGNOSTIC IMPRESSION AND PLAN: Patient admitted to hospital with an episode of unresponsiveness and concern for aspiration pneumonia. Also has elevated white count and a transvenous pacer. The patient is currently covered with Azactam and vancomycin. White count is showing a downward trend. To continue and monitor clinical course closely. MMODL / IJN: [id number] /
[2020-09-24 23:48] LABS: Glucose,Whole Blood 206 mg/dL (75-99)
[2020-09-25 04:35] LABS: Basophils # (A) 0.1 k/uL (0-0.2); Basophils % (A) 1 %; Eosinophils % (A) 0 %; HCT 38.8 % (39.0-53.0); HGB 11.7 gm/dL (13.0-17.5); Hypochromasia Slight; Lymphocytes # (A) 1.1 k/uL (1.0-4.8); Lymphocytes % (A) 6 %; MCH 29.6 pg (25.0-35.0); MCHC 30.3 g/dL (31.0-37.0); MCV 97.7 fL (80.0-100.0); Mean Platelet Volume 8.5; Monocytes % (A) 5 %; Neutrophils # (A) 15.8 k/uL (1.3-7.7); Neutrophils % (A) 85 %; Platelet Count 717 k/uL (150-450); RBC 3.97 m/uL (4.30-5.90); RDW 14.5 % (11.5-15.5); WBC 18.7 k/uL (3.8-10.6)
[2020-09-25] MEDS: POTASSIUM PHOSPHATE IV SCH ×7 (04:39)
[2020-09-25] MEDS: MAGNESIUM SULFATE IV SCH ×7 (04:39)
[2020-09-25] MEDS: CALCIUM GLUCONATE IV SCH ×7 (04:39)
[2020-09-25] MEDS: [UNRECOGNIZED DRUG - OTHER] IV SCH ×7 (04:39)
[2020-09-25 04:58] LABS: African American GFR (CKD) >90 (>60 ml/min/1.73 sqM); Anion Gap 6 mmol/L; Blood Urea Nitrogen 40 mg/dL (9-20); Carbon Dioxide 28 mmol/L (22-30); Chloride 108 mmol/L (98-107); Glucose 206 mg/dL (74-99); Magnesium 2.1 mg/dL (1.6-2.3); Non-African American GFR(CKD) >90 (>60 ml/min/1.73 sqM); Phosphorus 4.1 mg/dL (2.5-4.5); Potassium 4.4 mmol/L (3.5-5.1); Sodium 142 mmol/L (137-145)
[2020-09-25] MEDS: INSULIN ASPART (NovoLOG) 100 UNIT/ML VIAL SQ SCH ×3 (05:25→18:15)
[2020-09-25] MEDS: VANCOMYCIN 1,500 MG in SODIUM CHLORIDE 0.9% 250 ML IVPB SCH ×2 (05:26→20:36)
[2020-09-25 05:29] LABS: Glucose,Whole Blood 204 mg/dL (75-99)
[2020-09-25] MEDS: IPRATROPIUM-ALBUTEROL 3 ML NEB INHALATION SCH ×4 (07:48→19:55)
--- NOTE | 2020-09-25 08:48 | P.PN ---
Subjective HISTORY OF PRESENTING ILLNESS This is a pleasant 74-year-old male past medical history significant for hypertension only on spironolactone and abdominal ventral hernia. Patient was found to be somewhat confused and initially thought he was having a stroke as he was unresponsive. Patient was noted to be bradycardic with third-degree heart block and TVP was initially placed then an externalized PPM was placed. Patient was intubated and then extubated however has had recurrent aspiration and aspiration pneumonia. 09/25/2020 Patient seen and examined. Patient had PEG tube placement yesterday. He denies any chest pain or pressure. Continues to be paced with his externalized pacemaker. Continued intermittent confusion. REVIEW OF SYSTEMS At the time of my exam: Denies chest pain or pressure. No abdominal pain. Continued dysphasia. Positive fatigue. PHYSICAL EXAMINATION Blood pressure 139/72, pulse 82, oxygen saturation 96% on 4 L high flow CONSTITUTIONAL: Chronically ill-appearing, alert and oriented HEENT: Head is normocephalic. Pupils are equal, round. Sclerae anicteric. Mucous membranes of the mouth are moist. No JVD. No carotid bruit. CHEST EXAMINATION: Diffuse rhonchi bilaterally HEART EXAMINATION: Regular rate and rhythm, S1, S2 heard. No murmurs, gallops or rub. ABDOMEN: Soft, nontender. Positive bowel sounds. EXTREMITIES: 2+ peripheral pulses, no lower extremity edema and no calf tenderness, + cool extremities and mild cyanosis of extremities. NEUROLOGIC EXAMINATION: Alert and oriented ASSESSMENT 1. Third-degree heart block, status post externalized pacemaker 2. Acute hypoxemic respiratory failure with recurrent aspiration 3. Toxic metabolic encephalopathy, improved 4. Elevated troponin, likely type II mechanism from sepsis 5. Lactic acidosis, improved 6. Acute kidney injury, improved 7. History of hypertension, currently off antihypertensives 8. Aspiration 9. Leukocytosis, likely related to aspiration PLAN Continue to monitor leukocytosis before consideration of changing externalized pacemaker for permanent pacemaker. White blood cell count continues to be elevated, currently 18.7 today. Hopefully improvement status post PEG tube placement however if remains elevated, may consider discharge to subacute rehab with externalized pacemaker and permanent pacemaker placement when clearly not septic. Continue supportive care. Objective - Vital Signs Vital signs: Vital Signs Temp 98.2 F 09/25/20 04:00 Pulse 88 09/25/20 08:01 Resp 23 09/25/20 07:00 BP 139/72 09/25/20 07:00 Pulse Ox 96 09/25/20 07:00 Intake & Output 09/24/20 09/25/20 09/25/20 18:59 06:59 18:59 Intake Total 1923.0 1230.8 85 Output Total 1790 1875 60 Balance 133.0 -644.2 25 Weight 78.3 kg Intake: IV 848.0 1155.8 85 0.9 NACL 240 190 10 Aztreonam 2 gm In Sodium 200 100 Chloride 0.9% 100 ml @ 33 .3 mls/hr IVPB Q8HR [facility] Rx#:[id number] Fat Emulsion 20% 250 ml @ 208.0 40.8 20.833 mls/hr IV DAILY [facility] Rx#:[id number] Potassium Phosphate 20 825 75 mmol Magnesium Sulfate gm 1 gm Calcium Gluconate 1 gm Mvi, Adult No.4 with Vit K 10 ml Trace (Conc- 1Ml/Dose) 1 ml Potassium Acetate 14 meq In Amino Acids 5 %/Dextrose 20 % 1 ,000 ml @ 75 mls/hr IV . BY DURATION [facility] Rx#: [id number] Potassium Phosphate 30 75 mmol Magnesium Sulfate gm 1 gm Calcium Gluconate 1 gm In Amino Acids 5 %/ Dextrose 20 % 1,000 ml @ 75 mls/hr IV .BY DURATION [facility] Rx#:[id number] Potassium Phosphate 30 75 mmol Magnesium Sulfate gm 1 gm Calcium Gluconate 1 gm Mvi, Adult No.4 with Vit K 10 ml Trace (Conc- 1Ml/Dose) 1 ml In Amino Acids 5 %/Dextrose 20 % 1 ,000 ml @ 75 mls/hr IV . BY DURATION [facility] Rx#: [id number] Intake, IV Titration 1075 75 Amount Potassium Phosphate 20 825 75 mmol Magnesium Sulfate gm 1 gm Calcium Gluconate 1 gm Mvi, Adult No.4 with Vit K 10 ml Trace (Conc- 1Ml/Dose) 1 ml Potassium Acetate 14 meq In Amino Acids 5 %/Dextrose 20 % 1 ,000 ml @ 75 mls/hr IV . BY DURATION [facility] Rx#: [id number] Vancomycin 1,500 mg In 250 Sodium Chloride 0.9% 250 ml @ 125 mls/hr IVPB Q16H [facility] Rx#:[id number] Output: Urine 17895 60 Other: Voiding Method Indwelling Catheter Indwelling Catheter ABP, PAP, CO, CI - Last Documented Arterial Blood Pressure 71/59 - Labs CBC & Chem 7: 09/25/20 03:37 09/25/20 03:37 Labs: Abnormal Lab Results - Last 24 Hours (Table) 09/24/20 09/24/20 09/24/20 Range/Units 11:59 17:43 23:36 WBC (3.8-10.6) k/uL RBC (4.30-5.90) m/uL Hgb (13.0-17.5) gm/dL Hct (39.0-53.0) % MCHC (31.0-37.0) g/dL Plt Count (150-450) k/uL Neutrophils # (1.3-7.7) k/uL Chloride (98-107) mmol/L BUN (9-20) mg/dL Creatinine (0.66-1.25) mg/dL Glucose (74-99) mg/dL POC Glucose (mg/dL) 213 H 229 H 206 H (75-99) mg/dL 09/25/20 09/25/20 09/25/20 Range/Units 03:37 03:37 05:18 WBC 18.7 H (3.8-10.6) k/uL RBC 3.97 L (4.30-5.90) m/uL Hgb 11.7 L (13.0-17.5) gm/dL Hct 38.8 L (39.0-53.0) % MCHC 30.3 L (31.0-37.0) g/dL Plt Count 717 H (150-450) k/uL Neutrophils # 15.8 H (1.3-7.7) k/uL Chloride 108 H (98-107) mmol/L BUN 40 H (9-20) mg/dL Creatinine 0.61 L (0.66-1.25) mg/dL Glucose 206 H (74-99) mg/dL POC Glucose (mg/dL) 204 H (75-99) mg/dL Microbiology - Last 24 Hours (Table) 09/11/20 09:16 Acid Fast Bacilli Smear - Final Bronchoalviolar Lavage - Right Acid Fast Bacilli Culture - Preliminary 09/11/20 09:16 Fungal Culture - Preliminary Bronchoalviolar Lavage - Right
--- NOTE | 2020-09-25 08:48 | P.PN ---
Subjective Progress Note Date: 09/25/20 Patient is awake and alert. He denies any shortness of breath. No acute events overnight reported by nursing staff. Patient had his PEG tube inserted yesterday and awaiting dietitian to around to start tube feeds. Objective - Vital Signs Vital signs: Vital Signs Temp 98.2 F 09/25/20 04:00 Pulse 88 09/25/20 08:01 Resp 23 09/25/20 07:00 BP 139/72 09/25/20 07:00 Pulse Ox 96 09/25/20 07:00 Intake & Output 09/24/20 09/25/20 09/25/20 18:59 06:59 18:59 Intake Total 1923.0 1230.8 85 Output Total 1790 1875 60 Balance 133.0 -644.2 25 Weight 78.3 kg Intake: IV 848.0 1155.8 85 0.9 NACL 240 190 10 Aztreonam 2 gm In Sodium 200 100 Chloride 0.9% 100 ml @ 33 .3 mls/hr IVPB Q8HR [facility] Rx#:[id number] Fat Emulsion 20% 250 ml @ 208.0 40.8 20.833 mls/hr IV DAILY [facility] Rx#:[id number] Potassium Phosphate 20 825 75 mmol Magnesium Sulfate gm 1 gm Calcium Gluconate 1 gm Mvi, Adult No.4 with Vit K 10 ml Trace (Conc- 1Ml/Dose) 1 ml Potassium Acetate 14 meq In Amino Acids 5 %/Dextrose 20 % 1 ,000 ml @ 75 mls/hr IV . BY DURATION [facility] Rx#: [id number] Potassium Phosphate 30 75 mmol Magnesium Sulfate gm 1 gm Calcium Gluconate 1 gm In Amino Acids 5 %/ Dextrose 20 % 1,000 ml @ 75 mls/hr IV .BY DURATION [facility] Rx#:[id number] Potassium Phosphate 30 75 mmol Magnesium Sulfate gm 1 gm Calcium Gluconate 1 gm Mvi, Adult No.4 with Vit K 10 ml Trace (Conc- 1Ml/Dose) 1 ml In Amino Acids 5 %/Dextrose 20 % 1 ,000 ml @ 75 mls/hr IV . BY DURATION [facility] Rx#: [id number] Intake, IV Titration 1075 75 Amount Potassium Phosphate 20 825 75 mmol Magnesium Sulfate gm 1 gm Calcium Gluconate 1 gm Mvi, Adult No.4 with Vit K 10 ml Trace (Conc- 1Ml/Dose) 1 ml Potassium Acetate 14 meq In Amino Acids 5 %/Dextrose 20 % 1 ,000 ml @ 75 mls/hr IV . BY DURATION [facility] Rx#: [id number] Vancomycin 1,500 mg In 250 Sodium Chloride 0.9% 250 ml @ 125 mls/hr IVPB Q16H [facility] Rx#:[id number] Output: Urine 1790 1875 60 Other: Voiding Method Indwelling Catheter Indwelling Catheter ABP, PAP, CO, CI - Last Documented Arterial Blood Pressure 71/59 - Exam General: The patient is awake and alert, in no distress Eye: there is normal conjunctiva bilaterally. Neck: The neck is supple, there is no JVD. Cardiovascular: Normal S1-S2, no S3-S4, no murmurs. Respiratory: Lungs clear to auscultation bilaterally Gastrointestinal: Abdomen is soft, nontender Musculoskeletal: There is +1 pedal edema. Neurological:. Speech is normal. Skin: Skin is warm and dry - Labs CBC & Chem 7: 09/25/20 03:37 09/25/20 03:37 Labs: Abnormal Lab Results - Last 24 Hours (Table) 09/24/20 09/24/20 09/24/20 Range/Units 11:59 17:43 23:36 WBC (3.8-10.6) k/uL RBC (4.30-5.90) m/uL Hgb (13.0-17.5) gm/dL Hct (39.0-53.0) % MCHC (31.0-37.0) g/dL Plt Count (150-450) k/uL Neutrophils # (1.3-7.7) k/uL Chloride (98-107) mmol/L BUN (9-20) mg/dL Creatinine (0.66-1.25) mg/dL Glucose (74-99) mg/dL POC Glucose (mg/dL) 213 H 229 H 206 H (75-99) mg/dL 09/25/20 09/25/20 09/25/20 Range/Units 03:37 03:37 05:18 WBC 18.7 H (3.8-10.6) k/uL RBC 3.97 L (4.30-5.90) m/uL Hgb 11.7 L (13.0-17.5) gm/dL Hct 38.8 L (39.0-53.0) % MCHC 30.3 L (31.0-37.0) g/dL Plt Count 717 H (150-450) k/uL Neutrophils # 15.8 H (1.3-7.7) k/uL Chloride 108 H (98-107) mmol/L BUN 40 H (9-20) mg/dL Creatinine 0.61 L (0.66-1.25) mg/dL Glucose 206 H (74-99) mg/dL POC Glucose (mg/dL) 204 H (75-99) mg/dL Microbiology - Last 24 Hours (Table) 09/11/20 09:16 Acid Fast Bacilli Smear - Final Bronchoalviolar Lavage - Right Acid Fast Bacilli Culture - Preliminary 09/11/20 09:16 Fungal Culture - Preliminary Bronchoalviolar Lavage - Right Assessment and Plan Assessment: This is a 74-year-old male with past medical history noted below who was brought into the emergency room after he was found unresponsive by EMS and was having agonal breathing. Unresponsiveness, suspected secondary to bradycardia with complete heart block, now resolved Acute hypoxic respiratory failure requiring intubation and mechanical ventilation. Now extubated Community-acquired pneumonia versus aspiration pneumonia -Initially had transvenous pacer for third-degree AV block on 09/08/20, then had temporary pacer placed. -Status post bronch with BAL on 09/11, cultures negative -COVID 19 PCR negative -Restarted on steroids by pulmonary -Infectious disease following: Patient on aztreonam and vancomycin managed by infectious disease -Echocardiogram unremarkable with LVEF 55-60% and normal LV wall thickness Chronic aspiration/moderate severe malnutrition Patient continued to aspirate on feeding trials Status post PEG tube on 09/24 Acute delirium/agitation, now resolved Haldol when necessary Steroid-induced hyperglycemia A1c was normal Started Lantus 10 units daily Continue sliding scale insulin with blood sugar checks every 6 hours. Fluid overload Continue lasix Third-degree heart block -Temporary pacer placed -Planning permanent pacemaker placement once leukocytosis, lung infection and oxygenation improved. Elevated troponin - due to hypoxemia - not consistent with acute coronary syndrome. Hypothyroidism -Continue Synthroid Lactic acidosis, resolved Hyponatremia, hypernatremia resolved Acute kidney injury, resolved General weakness PT following DVT prophylaxis: heparin Discussed with: patient, nursing Anticipated discharge: Pending clinical course Anticipated discharge place: likely will need rehab Persistent leukocytosis is probably secondary to IV Solu-Medrol use. Patient is improving clinically overall. I would discuss antibiotic with infectious disease. May proceed with permanent pacemaker implantation per cardiology
[2020-09-25] MEDS: AZTREONAM 2 GM in SODIUM CHLORIDE 0.9% 100 ML IVPB SCH (09:10)
[2020-09-25] MEDS: HEPARIN SODIUM,PORCINE 5,000 UNIT/ML 1 ML VIAL SQ SCH ×2 (09:11→18:17)
[2020-09-25] MEDS: methylPREDNISolone SOD SUCCI 40 MG/ML 1 ML VIAL IV SCH ×2 (09:11→20:37)
[2020-09-25] MEDS: LEVOTHYROXINE IVP 100 MCG/5 ML VIAL IV SCH (09:11)
[2020-09-25] MEDS: FUROSEMIDE 10 MG/ML 4 ML VIAL IV SCH ×2 (09:11→20:37)
[2020-09-25] MEDS: PANTOPRAZOLE 40 MG/10 ML VIAL IVP SCH (09:11)
--- NOTE | 2020-09-25 10:13 | XR ---
EXAMINATION TYPE: XR chest 1V DATE OF EXAM: 09/25/2020 COMPARISON: Prior chest x-ray 09/24/2020 HISTORY: Shortness of breath TECHNIQUE: Single frontal view of the chest is obtained. FINDINGS: Right-sided PICC line, generator and leads are stable. Heart is unchanged. Aorta is dense. No evident pneumothorax or sizable effusion. Patient is rotated and exam is expiratory. Patchy bilat eral density persists. IMPRESSION: No significant change. Correlate for pneumonia, there may be underlying interstitial joseph g disease, edema.
--- NOTE | 2020-09-25 11:05 | P.PN ---
Subjective Progress Note Date: 09/25/20 Principal diagnosis: Aspiration pneumonia, third-degree AV block On 09/24/2020 patient seen in follow-up in the intensive care unit, patient was admitted on 09/08/2020 with a diagnosis of aspiration pneumonia, sepsis, third- degree AV block. He was started on antibiotics, he required intubation and placement on mechanical ventilator on 09/08/2020 and was successfully weaned and extubated from mechanical ventilator on 09/13/2020. Patient remains in the third-degree AV block, external right subclavian pacemaker was placed the intention of replacing it with the permanent pacemaker down the road once the patient completely requires from his pneumonia. He seen in follow-up today on the 09/24/2020 in the intensive care unit, he is awake and alert, his FiO2 is currently down to 5 L, his breathing comfortably, denies any acute distress, no altered mentation, he is answering questions appropriately, remains on Precedex at 0.2 mics per kilo per minute, 0.9 at 20 ML per hour, TPN at 75 ML per hour, and lipids. Patient has been nothing by mouth in view of his aspiration, and surgical consultation was placed and today patient will be taken to the or for placement of a PEG tube. His vital signs have been stable, his been afebrile, he is not on any vasopressor support. His chest x-ray has been reviewed showing interstitial edema, low lung volumes, and patchy densities at the lung bases. She remains on IV Lasix at 40 mg every 12 hours, and antibiotic coverage in the form of Azactam, and vancomycin. Patient is also on IV steroids at 40 mg every 12 hours. He is status post bronchoscopy with bronchoalveolar lavage, and his BAL cultures have been negative. Today's labs have been reviewed, with blood cell count is trending down, down to 15.5 on today's labs, hemoglobin is 11.3, sodium is 143, potassium 3.8, chloride is 111, CO2 is 26, UN is 40 creatinine 0.59. Patient is an +684 mL fluid balance over the last 24 hours. His not appear to be in any acute distress. On 09/25/2020 patient seen in follow-up in the intensive care unit, he is awake and alert, oriented 3, seems to be very comfortable, no acute distress, no dyspnea, complaints of chest pain, patient does have occasional cough, nonproductive, without significant congestion. His cough is nice and strong, patient has been nothing by mouth, he received a PEG tube yesterday in the operating room, tolerated procedure well, he is anticipated to be started on enteral feedings today, he remains on TPN in the meantime at 75 ML per hour, and lipids every 12 hours. In point and was seen at a rate of KVO, his external temporary pacemaker is in place, security is right chest wall, and patient is 100% paced on the monitor, he remains on low dose Precedex which we will discontinue today, no confusion or agitation noted, will DC the Precedex, we'll add small dose oral Seroquel 25 mg twice daily, no acute events overnight. Today's labs have been reviewed, showing white blood cell, beaching 0.7, hemoglobin of 11.7, sodium is 142, potassium is 4.4, chloride is 108, BUN is 40 creatinine 0.61. Patient remains on bronchodilators, IV steroids Solu-Medrol 40 mg every 12 hours, and Azactam and vancomycin, ID service is following, no growth noted on his blood sputum or BAL cultures Objective - Vital Signs Vital signs: Vital Signs Temp 98 F 09/25/20 08:00 Pulse 93 09/25/20 10:53 Resp 16 09/25/20 10:00 BP 131/76 09/25/20 10:00 Pulse Ox 94 L 09/25/20 10:00 Intake & Output 09/24/20 09/25/20 09/25/20 18:59 06:59 18:59 Intake Total 1923.0 1230.8 265 Output Total 1790 1875 510 Balance 133.0 -644.2 -245 Weight 78.3 kg Intake: IV 848.0 1155.8 265 0.9 NACL 240 190 40 Aztreonam 2 gm In Sodium 200 100 Chloride 0.9% 100 ml @ 33 .3 mls/hr IVPB Q8HR [facility] Rx#:[id number] Fat Emulsion 20% 250 ml @ 208.0 40.8 20.833 mls/hr IV DAILY [facility] Rx#:[id number] Potassium Phosphate 20 825 225 mmol Magnesium Sulfate gm 1 gm Calcium Gluconate 1 gm Mvi, Adult No.4 with Vit K 10 ml Trace (Conc- 1Ml/Dose) 1 ml Potassium Acetate 14 meq In Amino Acids 5 %/Dextrose 20 % 1 ,000 ml @ 75 mls/hr IV . BY DURATION [facility] Rx#: [id number] Potassium Phosphate 30 75 mmol Magnesium Sulfate gm 1 gm Calcium Gluconate 1 gm In Amino Acids 5 %/ Dextrose 20 % 1,000 ml @ 75 mls/hr IV .BY DURATION [facility] Rx#:[id number] Potassium Phosphate 30 75 mmol Magnesium Sulfate gm 1 gm Calcium Gluconate 1 gm Mvi, Adult No.4 with Vit K 10 ml Trace (Conc- 1Ml/Dose) 1 ml In Amino Acids 5 %/Dextrose 20 % 1 ,000 ml @ 75 mls/hr IV . BY DURATION [facility] Rx#: [id number] Intake, IV Titration 1075 75 Amount Potassium Phosphate 20 825 75 mmol Magnesium Sulfate gm 1 gm Calcium Gluconate 1 gm Mvi, Adult No.4 with Vit K 10 ml Trace (Conc- 1Ml/Dose) 1 ml Potassium Acetate 14 meq In Amino Acids 5 %/Dextrose 20 % 1 ,000 ml @ 75 mls/hr IV . BY DURATION [facility] Rx#: [id number] Vancomycin 1,500 mg In 250 Sodium Chloride 0.9% 250 ml @ 125 mls/hr IVPB Q16H [facility] Rx#:[id number] Output: Urine 1790 1875 510 Other: Voiding Method Indwelling Catheter Indwelling Catheter Indwelling Catheter ABP, PAP, CO, CI - Last Documented Arterial Blood Pressure 71/59 - Exam GENERAL EXAM: 74-year-old white male, 5 L of oxygen, no acute distress comfortable in no apparent distress. HEAD: Normocephalic/atraumatic. EYES: Normal reaction of pupils, equal size. Conjunctiva pink, sclera white. NOSE: Clear with pink turbinates. THROAT: No erythema or exudates. NECK: No masses, no JVD, no thyroid enlargement, no adenopathy. CHEST: No chest wall deformity. Symmetrical expansion. Right subclavian area external pacemaker, patient is 100% AV paced on the monitor LUNGS: Equal air entry with no crackles, wheeze, rhonchi or dullness. CVS: Irregular rate and rhythm, normal S1 and S2, no gallops, no murmurs, no rubs ABDOMEN: Soft, nontender. No hepatosplenomegaly, normal bowel sounds, no guarding or rigidity. EXTREMITIES: No clubbing, 1+ pretibial edema and mild upper extremity edema, no cyanosis, 2+ pulses and upper and lower extremities. MUSCULOSKELETAL: Muscle strength and tone normal. SPINE: No scoliosis or deformity SKIN: No rashes CENTRAL NERVOUS SYSTEM: Alert and oriented -3. No focal deficits, tone is no rmal in all 4 extremities. PSYCHIATRIC: Alert and oriented -3. Appropriate affect. Intact judgment and insight. - Labs CBC & Chem 7: 09/25/20 03:37 09/25/20 03:37 Labs: Abnormal Lab Results - Last 24 Hours (Table) 09/24/20 09/24/20 09/24/20 Range/Units 11:59 17:43 23:36 WBC (3.8-10.6) k/uL RBC (4.30-5.90) m/uL Hgb (13.0-17.5) gm/dL Hct (39.0-53.0) % MCHC (31.0-37.0) g/dL Plt Count (150-450) k/uL Neutrophils # (1.3-7.7) k/uL Chloride (98-107) mmol/L BUN (9-20) mg/dL Creatinine (0.66-1.25) mg/dL Glucose (74-99) mg/dL POC Glucose (mg/dL) 213 H 229 H 206 H (75-99) mg/dL 09/25/20 09/25/20 09/25/20 Range/Units 03:37 03:37 05:18 WBC 18.7 H (3.8-10.6) k/uL RBC 3.97 L (4.30-5.90) m/uL Hgb 11.7 L (13.0-17.5) gm/dL Hct 38.8 L (39.0-53.0) % MCHC 30.3 L (31.0-37.0) g/dL Plt Count 717 H (150-450) k/uL Neutrophils # 15.8 H (1.3-7.7) k/uL Chloride 108 H (98-107) mmol/L BUN 40 H (9-20) mg/dL Creatinine 0.61 L (0.66-1.25) mg/dL Glucose 206 H (74-99) mg/dL POC Glucose (mg/dL) 204 H (75-99) mg/dL Microbiology - Last 24 Hours (Table) 09/11/20 09:16 Acid Fast Bacilli Smear - Final Bronchoalviolar Lavage - Right Acid Fast Bacilli Culture - Preliminary 09/11/20 09:16 Fungal Culture - Preliminary Bronchoalviolar Lavage - Right Assessment and Plan Plan: Assessment: #1. Acute hypoxic restaurant failure secondary to aspiration pneumonia and a component of fluid overload, interstitial edema #2. Acute complete heart block requiring temporary pacemaker implantation, and patient currently has a right subclavian area external temporary pacemaker with intention of replacing of the permanent pacemaker down the road #3. Severe metabolic acidosis, resolved #4. Acute kidney injury secondary to acute tubular necrosis, improving #5. Dyslipidemia #6. Hypothyroidism #7. Intermittent episodes of confusion, related to acute metabolic encephalopathy, improving however patient remains on Precedex #8. Dysphagia, aspiration pneumonia, patient had a PEG tube inserted on 09/24/2020, and anticipated just to be started on enteral feedings today Plan: Continue current medical treatment, patient has been stable overnight, wean FiO2, discontinue Precedex, we will add small dose Seroquel 25 mg twice daily, continue diuretics, continue antibiotics per ID service recommendations, incentive spirometer, encourage use, increase activity as tolerated, and consult physical therapy, anticipate starting the patient on enteral feedings today, we'll defer to surgery on the decision, continue TPN for nutritional support until goal rate on the drill feedings have been reached, I performed a history & physical examination of the patient and discussed their management with my nurse practitioner, Lilibeth Huitron. I reviewed the nurse practitioner's note and agree with the documented findings and plan of care. Lung sounds are positive for a few scattered rhonchi.. The findings and the impression was discussed with the patient. I attest to the documentation by the nurse practitioner. Time with Patient: Less than 30
[2020-09-25 11:53] LABS: Glucose,Whole Blood 109 mg/dL (75-99)
--- NOTE | 2020-09-25 12:50 | P.PN ---
Subjective Progress Note Date: 09/25/20 CHIEF COMPLAINT: Aspiration pneumonia, third-degree AV block HISTORY OF PRESENT ILLNESS: Patient is status post PEG tube placement with Dr. Dunbar. Tube feedings will be started today. Afebrile. WBC 18.7 albumin 2.6 PHYSICAL EXAM: VITAL SIGNS: Reviewed. GENERAL: Well-developed in no acute distress. HEENT: No sclera icterus. Extraocular movements grossly intact. Moist buccal mucosa. Head is atraumatic, normocephalic. ABDOMEN: Soft. Nondistended. Nontender. PEG tube site clean dry and intact NEUROLOGIC: Alert and oriented. Cranial nerves II through XII grossly intact. ASSESSMENT: 1. Dysphagia, aspiration pneumonia and Severe protein calorie malnutrition status post PEG tube placement PLAN: -PEG tube feedings to be started today -Continue supportive care [employer] note has been reviewed by physician. Signing provider agrees with the documented findings, assessment, and plan of care. Objective - Vital Signs Vital signs: Vital Signs Temp 98 F 09/25/20 08:00 Pulse 90 09/25/20 12:00 Resp 18 09/25/20 12:00 BP 123/77 09/25/20 12:00 Pulse Ox 94 L 09/25/20 12:00 Intake & Output 09/24/20 09/25/20 09/25/20 18:59 06:59 18:59 Intake Total 1923.0 1230.8 305 Output Total 1790 1875 1185 Balance 133.0 -644.2 -880 Weight 78.3 kg Intake: IV 848.0 1155.8 285 0.9 NACL 240 190 60 Aztreonam 2 gm In Sodium 200 100 Chloride 0.9% 100 ml @ 33 .3 mls/hr IVPB Q8HR [facility] Rx#:[id number] Fat Emulsion 20% 250 ml @ 208.0 40.8 20.833 mls/hr IV DAILY [facility] Rx#:[id number] Potassium Phosphate 20 825 225 mmol Magnesium Sulfate gm 1 gm Calcium Gluconate 1 gm Mvi, Adult No.4 with Vit K 10 ml Trace (Conc- 1Ml/Dose) 1 ml Potassium Acetate 14 meq In Amino Acids 5 %/Dextrose 20 % 1 ,000 ml @ 75 mls/hr IV . BY DURATION [facility] Rx#: [id number] Potassium Phosphate 30 75 mmol Magnesium Sulfate gm 1 gm Calcium Gluconate 1 gm In Amino Acids 5 %/ Dextrose 20 % 1,000 ml @ 75 mls/hr IV .BY D[facility]ATION [facility] Rx#:[id number] Potassium Phosphate 30 75 mmol Magnesium Sulfate gm 1 gm Calcium Gluconate 1 gm Mvi, Adult No.4 with Vit K 10 ml Trace (Conc- 1Ml/Dose) 1 ml In Amino Acids 5 %/Dextrose 20 % 1 ,000 ml @ 75 mls/hr IV . BY DURATION [facility] Rx#: [id number] Intake, IV Titration 1075 75 Amount Potassium Phosphate 20 825 75 mmol Magnesium Sulfate gm 1 gm Calcium Gluconate 1 gm Mvi, Adult No.4 with Vit K 10 ml Trace (Conc- 1Ml/Dose) 1 ml Potassium Acetate 14 meq In Amino Acids 5 %/Dextrose 20 % 1 ,000 ml @ 75 mls/hr IV . BY [facility] Rx#: [id number] Vancomycin 1,500 mg In 250 Sodium Chloride 0.9% 250 ml @ 125 mls/hr IVPB Q16H [facility] Rx#:[id number] Tube Feeding 20 Output: Urine 1790 1875 1185 Other: Voiding Method Indwelling Catheter Indwelling Catheter Indwelling Catheter ABP, PAP, CO, CI - Last Documented Arterial Blood Pressure 71/59 - Labs CBC & Chem 7: 09/25/20 03:37 09/25/20 03:37 Labs: Abnormal Lab Results - Last 24 Hours (Table) 09/24/20 09/24/20 09/25/20 Range/Units 17:43 23:36 03:37 WBC (3.8-10.6) k/uL RBC (4.30-5.90) m/uL Hgb (13.0-17.5) gm/dL Hct (39.0-53.0) % MCHC (31.0-37.0) g/dL Plt Count (150-450) k/uL Neutrophils # (1.3-7.7) k/uL Chloride 108 H (98-107) mmol/L BUN 40 H (9-20) mg/dL Creatinine 0.61 L (0.66-1.25) mg/dL Glucose 206 H (74-99) mg/dL POC Glucose (mg/dL) 229 H 206 H (75-99) mg/dL 09/25/20 09/25/20 09/25/20 Range/Units 03:37 05:18 11:50 WBC 18.7 H (3.8-10.6) k/uL RBC 3.97 L (4.30-5.90) m/uL Hgb 11.7 L (13.0-17.5) gm/dL Hct 38.8 L (39.0-53.0) % MCHC 30.3 L (31.0-37.0) g/dL Plt Count 717 H (150-450) k/uL Neutrophils # 15.8 H (1.3-7.7) k/uL Chloride (98-107) mmol/L BUN (9-20) mg/dL Creatinine (0.66-1.25) mg/dL Glucose (74-99) mg/dL POC Glucose (mg/dL) 204 H 109 H (75-99) mg/dL Microbiology - Last 24 Hours (Table) 09/11/20 09:16 Acid Fast Bacilli Smear - Final Bronchoalviolar Lavage - Right Acid Fast Bacilli Culture - Preliminary 09/11/20 09:16 Fungal Culture - Preliminary Bronchoalviolar Lavage - Right
[2020-09-25] MEDS: QUEtiapine 25 MG TAB PO SCH ×2 (15:09→20:40)
[2020-09-25 16:28] LABS: Glucose,Whole Blood 129 mg/dL (75-99)
[2020-09-25] MEDS: HALOPERIDOL LACTATE 5 MG/ML 1 ML VIAL IVP PRN (18:14)
[2020-09-25] MEDS: INSULIN DETEMIR (LEVEMIR) 100 UNIT/ML SYR SQ SCH (20:40)
[2020-09-25] MEDS ORDERED: QUEtiapine 25 MG TAB PO SCH (21:00)
--- NOTE | 2020-09-25 21:46 | PN ---
PROGRESS NOTE DATE OF SERVICE: 10/04/2020 REASON FOR FOLLOWUP: Leukocytosis and pneumonia. INTERVAL HISTORY: The patient is currently afebrile. The patient remains pleasantly confused. The patient denies having any chest pain or shortness of breath. Occasional cough. No abdominal pain and no diarrhea has been reported. PHYSICAL EXAMINATION: Blood pressure 120/68 with a pulse of 90, temperature 97.8. He is 96% on 5 L nasal cannula. General description is an elderly male lying in bed in no distress. RESPIRATORY SYSTEM: Unlabored breathing with decreased intensity of breath sounds. No wheeze. HEART: S1, S2. Regular rate and rhythm. ABDOMEN: Soft. No tenderness. LABS: Hemoglobin is 11.7, white count 18.7, BUN of 4, creatinine 0.61. Culture so far negative. DIAGNOSTIC IMPRESSION AND PLAN: Patient admitted to hospital with an episode of unresponsiveness with concern about aspiration pneumonia. Patient received adequate Gram-negative coverage. Azactam will be discontinued. White count is slightly elevated; could be related to steroids. Will monitor closely and continue with supportive care. MMODL / IJN: [id number] /
[2020-09-25 23:53] LABS: Glucose,Whole Blood 150 mg/dL (75-99)
[2020-09-26] MEDS: HEPARIN SODIUM,PORCINE 5,000 UNIT/ML 1 ML VIAL SQ SCH ×4 (00:24→23:48)
[2020-09-26] MEDS: INSULIN ASPART (NovoLOG) 100 UNIT/ML VIAL SQ SCH ×5 (00:24→23:48)
[2020-09-26 04:27] LABS: Basophils # (A) 0.2 k/uL (0-0.2); Basophils % (A) 1 %; Eosinophils % (A) 0 %; HCT 35.8 % (39.0-53.0); HGB 11.5 gm/dL (13.0-17.5); Hypochromasia Slight; Lymphocytes # (A) 1.1 k/uL (1.0-4.8); Lymphocytes % (A) 6 %; MCHC 32.1 g/dL (31.0-37.0); MCV 96.5 fL (80.0-100.0); Mean Platelet Volume 8.4; Monocytes # (A) 1.2 k/uL (0-1.0); Monocytes % (A) 6 %; Neutrophils # (A) 15.9 k/uL (1.3-7.7); Neutrophils % (A) 85 %; Platelet Count 650 k/uL (150-450); RBC 3.71 m/uL (4.30-5.90); RDW 14.5 % (11.5-15.5); WBC 18.6 k/uL (3.8-10.6)
[2020-09-26 04:35] LABS: ALT 223 U/L (4-49); AST 135 U/L (17-59); African American GFR (CKD) >90 (>60 ml/min/1.73 sqM); Albumin 2.8 g/dL (3.5-5.0); Alkaline Phosphatase 161 U/L (38-126); Anion Gap 5 mmol/L; Blood Urea Nitrogen 49 mg/dL (9-20); Carbon Dioxide 28 mmol/L (22-30); Chloride 111 mmol/L (98-107); Glucose 170 mg/dL (74-99); Non-African American GFR(CKD) >90 (>60 ml/min/1.73 sqM); Potassium 4.8 mmol/L (3.5-5.1); Sodium 144 mmol/L (137-145); Total Bilirubin 0.6 mg/dL (0.2-1.3); Total Protein 5.7 g/dL (6.3-8.2)
[2020-09-26] MEDS ORDERED: LEVOTHYROXINE 100 MCG TAB PO SCH (07:27)
[2020-09-26] MEDS: QUEtiapine 25 MG TAB PO SCH (07:48)
[2020-09-26] MEDS: PANTOPRAZOLE 40 MG TABLET PO SCH (07:48)
[2020-09-26] MEDS: FUROSEMIDE 10 MG/ML 4 ML VIAL IV SCH (07:49)
[2020-09-26] MEDS: IPRATROPIUM-ALBUTEROL 3 ML NEB INHALATION SCH ×4 (08:32→20:20)
[2020-09-26] MEDS: predniSONE 10 MG TAB PO SCH (08:46)
[2020-09-26] MEDS ORDERED: QUEtiapine 25 MG TAB PO SCH (09:00)
[2020-09-26] MEDS ORDERED: predniSONE 20 MG TAB PO SCH (09:00)
--- NOTE | 2020-09-26 09:06 | XR ---
EXAMINATION TYPE: XR chest 1V portable DATE OF EXAM: 09/26/2020 COMPARISON: 09/25/2020 HISTORY: Shortness of breath TECHNIQUE: Single frontal view of the chest is obtained. FINDINGS: Cardiac device is seen and there is diffuse interstitial pattern. Small right effusion. Bi lateral multifocal patchy areas of infiltrate. Heart size stable. Hypertrophic and degenerative sams e of the spine. Atherosclerotic change aorta. IMPRESSION: 1. Diffuse patchy bilateral infiltrate correlate for pneumonia stable in appearance.
--- NOTE | 2020-09-26 09:48 | P.PN ---
Subjective Progress Note Date: 09/26/20 Principal diagnosis: Aspiration pneumonia, third-degree AV block On 09/24/2020 patient seen in follow-up in the intensive care unit, patient was admitted on 09/08/2020 with a diagnosis of aspiration pneumonia, sepsis, third- degree AV block. He was started on antibiotics, he required intubation and placement on mechanical ventilator on 09/08/2020 and was successfully weaned and extubated from mechanical ventilator on 09/13/2020. Patient remains in the third-degree AV block, external right subclavian pacemaker was placed the intention of replacing it with the permanent pacemaker down the road once the patient completely requires from his pneumonia. He seen in follow-up today on the 09/24/2020 in the intensive care unit, he is awake and alert, his FiO2 is currently down to 5 L, his breathing comfortably, denies any acute distress, no altered mentation, he is answering questions appropriately, remains on Precedex at 0.2 mics per kilo per minute, 0.9 at 20 ML per hour, TPN at 75 ML per hour, and lipids. Patient has been nothing by mouth in view of his aspiration, and surgical consultation was placed and today patient will be taken to the or for placement of a PEG tube. His vital signs have been stable, his been afebrile, he is not on any vasopressor support. His chest x-ray has been reviewed showing interstitial edema, low lung volumes, and patchy densities at the lung bases. She remains on IV Lasix at 40 mg every 12 hours, and antibiotic coverage in the form of Azactam, and vancomycin. Patient is also on IV steroids at 40 mg every 12 hours. He is status post bronchoscopy with bronchoalveolar lavage, and his BAL cultures have been negative. Today's labs have been reviewed, with blood cell count is trending down, down to 15.5 on today's labs, hemoglobin is 11.3, sodium is 143, potassium 3.8, chloride is 111, CO2 is 26, UN is 40 creatinine 0.59. Patient is an +684 mL fluid balance over the last 24 hours. His not appear to be in any acute distress. On 09/25/2020 patient seen in follow-up in the intensive care unit, he is awake and alert, oriented 3, seems to be very comfortable, no acute distress, no dyspnea, complaints of chest pain, patient does have occasional cough, nonproductive, without significant congestion. His cough is nice and strong, patient has been nothing by mouth, he received a PEG tube yesterday in the operating room, tolerated procedure well, he is anticipated to be started on enteral feedings today, he remains on TPN in the meantime at 75 ML per hour, and lipids every 12 hours. In point and was seen at a rate of KVO, his external temporary pacemaker is in place, security is right chest wall, and patient is 100% paced on the monitor, he remains on low dose Precedex which we will discontinue today, no confusion or agitation noted, will DC the Precedex, we'll add small dose oral Seroquel 25 mg twice daily, no acute events overnight. Today's labs have been reviewed, showing white blood cell, beaching 0.7, hemoglobin of 11.7, sodium is 142, potassium is 4.4, chloride is 108, BUN is 40 creatinine 0.61. Patient remains on bronchodilators, IV steroids Solu-Medrol 40 mg every 12 hours, and Azactam and vancomycin, ID service is following, no growth noted on his blood sputum or BAL cultures On 02/24/2021 patient seen in follow-up in the intensive care unit, he is resting comfortably in bed, currently 5 L of oxygen his pulse ox is 97%, can probably wean his FiO2 down further, breathing comfortably, lung sounds reveal some scattered wheezes, some rhonchi Patient has a productive cough, and he is able to bring up some brownish colored sputum. The, but chest pain, his external pacemaker still in place in the right subclavian area, clean dry and intact, covered with dressing. He's had no fever or chills, history of the DC the Precedex, and started the patient on low-dose Seroquel for episodes of restlessness, confusion, nursing staff reports episode of restlessness, confusion yesterday in the evening. During those episodes patient will try to leave. He did have a when necessary dose of although given to him. PEG tube is in place, he is receiving tube feedings in the form of TwoCal HN at 50 ML per hour, he is tolerating tube feeding very well, no abdominal pain. Remains nothing by mouth, TPN has been discontinued. Today's chest x-ray has been reviewed showing diffuse patchy bilateral infiltrates stable in appearance. Patient remains on Lasix 40 mg every 12 hours, he is on nebulized bronchodilators, he is on vancomycin, Azactam was discontinued, his bronchial lavage cultures have shown no growth. Objective - Vital Signs Vital signs: Vital Signs Temp 97.6 F 09/26/20 08:00 Pulse 77 09/26/20 09:00 Resp 17 09/26/20 09:00 BP 113/64 09/26/20 09:00 Pulse Ox 98 09/26/20 09:00 Intake & Output 09/25/20 09/26/20 09/26/20 18:59 06:59 18:59 Intake Total 455 590 180 Output Total 1535 1275 220 Balance -1080 -685 -40 Intake: IV 345 240 60 0.9 NACL 120 240 60 Potassium Phosphate 20 225 mmol Magnesium Sulfate gm 1 gm Calcium Gluconate 1 gm Mvi, Adult No.4 with Vit K 10 ml Trace (Conc- 1Ml/Dose) 1 ml Potassium Acetate 14 meq In Amino Acids 5 %/Dextrose 20 % 1 ,000 ml @ 75 mls/hr IV . BY DURATION [facility] Rx#: [id number] Tube Feeding 80 290 120 Other 30 60 Output: Urine 1535 1275 220 Other: Voiding Method Indwelling Catheter Indwelling Catheter Indwelling Catheter # Bowel Movements 1 ABP, PAP, CO, CI - Last Documented Arterial Blood Pressure 71/59 - Exam GENERAL EXAM: 74-year-old white male, 3 L of oxygen, no acute distress comfortable in no apparent distress. HEAD: Normocephalic/atraumatic. EYES: Normal reaction of pupils, equal size. Conjunctiva pink, sclera white. NOSE: Clear with pink turbinates. THROAT: No erythema or exudates. NECK: No masses, no JVD, no thyroid enlargement, no adenopathy. CHEST: No chest wall deformity. Symmetrical expansion. Right subclavian area external pacemaker, patient is 100% AV paced on the monitor LUNGS: Equal air entry with scattered wheezes, with a few rhonchi CVS: Irregular rate and rhythm, normal S1 and S2, no gallops, no murmurs, no rubs ABDOMEN: Soft, nontender. No hepatosplenomegaly, normal bowel sounds, no guarding or rigidity. EXTREMITIES: No clubbing, 1+ pretibial edema and mild upper extremity edema, no cyanosis, 2+ pulses and upper and lower extremities. MUSCULOSKELETAL: Muscle strength and tone normal. SPINE: No scoliosis or deformity SKIN: No rashes CENTRAL NERVOUS SYSTEM: Alert and oriented -3. No focal deficits, tone is normal in all 4 extremities. PSYCHIATRIC: Alert and oriented -3. Appropriate affect. Intact judgment and insight. - Labs CBC & Chem 7: 09/26/20 03:22 09/26/20 03:22 Labs: Abnormal Lab Results - Last 24 Hours (Table) 09/25/20 09/25/20 09/25/20 Range/Units 11:50 16:27 23:52 WBC (3.8-10.6) k/uL RBC (4.30-5.90) m/uL Hgb (13.0-17.5) gm/dL Hct (39.0-53.0) % Plt Count (150-450) k/uL Neutrophils # (1.3-7.7) k/uL Monocytes # (0-1.0) k/uL Chloride (98-107) mmol/L BUN (9-20) mg/dL Glucose (74-99) mg/dL POC Glucose (mg/dL) 109 H 129 H 150 H (75-99) mg/dL AST (17-59) U/L ALT (4-49) U/L Alkaline Phosphatase (38-126) U/L Total Protein (6.3-8.2) g/dL Albumin (3.5-5.0) g/dL 09/26/20 09/26/20 Range/Units 03:22 03:22 WBC 18.6 H (3.8-10.6) k/uL RBC 3.71 L (4.30-5.90) m/uL Hgb 11.5 L (13.0-17.5) gm/dL Hct 35.8 L (39.0-53.0) % Plt Count 650 H (150-450) k/uL Neutrophils # 15.9 H (1.3-7.7) k/uL Monocytes # 1.2 H (0-1.0) k/uL Chloride 111 H (98-107) mmol/L BUN 49 H (9-20) mg/dL Glucose 170 H (74-99) mg/dL POC Glucose (mg/dL) (75-99) mg/dL AST 135 H (17-59) U/L ALT 223 H (4-49) U/L Alkaline Phosphatase 161 H (38-126) U/L Total Protein 5.7 L (6.3-8.2) g/dL Albumin 2.8 L (3.5-5.0) g/dL Assessment and Plan Plan: Assessment: #1. Acute hypoxic restaurant failure secondary to aspiration pneumonia and a component of fluid overload, interstitial edema #2. Acute complete heart block requiring temporary pacemaker implantation, and patient currently has a right subclavian area external temporary pacemaker with intention of replacing of the permanent pacemaker down the road #3. Severe metabolic acidosis, resolved #4. Acute kidney injury secondary to acute tubular necrosis, improving #5. Dyslipidemia #6. Hypothyroidism #7. Intermittent episodes of confusion, related to acute metabolic encephalopathy, improving currently on Seroquel and when necessary dose of Haldol #8. Dysphagia, aspiration pneumonia, patient had a PEG tube inserted on 09/24/2020, and anticipated just to be started on enteral feedings today Plan: Continue antibiotics per ID service recommendations, currently just on vancomycin, Azactam has been discontinued, vital signs have been stable, patient has been afebrile, hemodynamically stable, tolerating tube feedings, increase activity as tolerated, encourage incentive spirometry use, consult physical therapy, patient has been taken off the Precedex, still has episodes of confusion and restlessness and agitation, we will increase his maintenance dose Seroquel 250 mg twice daily. Maintain safety precautions and aspiration precautions. Otherwise stable, we'll transfer the patient to selective care unit today I performed a history & physical examination of the patient and discussed their management with my nurse practitioner, Lilibeth Huitron. I reviewed the nurse practitioner's note and agree with the documented findings and plan of care. Lung sounds are positive for a few scattered rhonchi.. The findings and the impression was discussed with the patient. I attest to the documentation by the nurse practitioner. Time with Patient: Less than 30
--- NOTE | 2020-09-26 11:13 | P.PN ---
Subjective Progress Note Date: 09/26/20 Patient is awake and alert. He was able to answer questions appropriately this morning. Nursing staff informed me that in the evening he is getting more confused and having sundowning symptoms. No acute events overnight otherwise. Objective - Vital Signs Vital signs: Vital Signs Temp 97.6 F 09/26/20 08:00 Pulse 70 09/26/20 11:00 Resp 15 09/26/20 11:00 BP 111/59 09/26/20 11:00 Pulse Ox 96 09/26/20 11:00 Intake & Output 09/25/20 09/26/20 09/26/20 18:59 06:59 18:59 Intake Total 455 590 280 Output Total 1535 1275 830 Balance -9489 -685 -550 Weight 78.3 kg Intake: IV 345 240 100 0.9 NACL 120 240 100 Potassium Phosphate 20 225 mmol Magnesium Sulfate gm 1 gm Calcium Gluconate 1 gm Mvi, Adult No.4 with Vit K 10 ml Trace (Conc- 1Ml/Dose) 1 ml Potassium Acetate 14 meq In Amino Acids 5 %/Dextrose 20 % 1 ,000 ml @ 75 mls/hr IV . BY DURATION [facility] Rx#: [id number] Tube Feeding 80 290 180 Other 30 60 Output: Urine 1535 1275 830 Other: Voiding Method Indwelling Catheter Indwelling Catheter Indwelling Catheter # Bowel Movements 1 ABP, PAP, CO, CI - Last Documented Arterial Blood Pressure 71/59 - Exam General: The patient is awake and alert, in no distress Eye: there is normal conjunctiva bilaterally. Neck: The neck is supple, there is no JVD. Cardiovascular: Normal S1-S2, no S3-S4, no murmurs. Respiratory: Lungs clear to auscultation bilaterally Gastrointestinal: Abdomen is soft, nontender Musculoskeletal: There is +1 pedal edema. Neurological:. Speech is normal. Skin: Skin is warm and dry - Labs CBC & Chem 7: 09/26/20 03:22 09/26/20 03:22 Labs: Abnormal Lab Results - Last 24 Hours (Table) 09/25/20 09/25/20 09/25/20 Range/Units 11:50 16:27 23:52 WBC (3.8-10.6) k/uL RBC (4.30-5.90) m/uL Hgb (13.0-17.5) gm/dL Hct (39.0-53.0) % Plt Count (150-450) k/uL Neutrophils # (1.3-7.7) k/uL Monocytes # (0-1.0) k/uL Chloride (98-107) mmol/L BUN (9-20) mg/dL Glucose (74-99) mg/dL POC Glucose (mg/dL) 109 H 129 H 150 H (75-99) mg/dL AST (17-59) U/L ALT (4-49) U/L Alkaline Phosphatase (38-126) U/L Total Protein (6.3-8.2) g/dL Albumin (3.5-5.0) g/dL 09/26/20 09/26/20 Range/Units 03:22 03:22 WBC 18.6 H (3.8-10.6) k/uL RBC 3.71 L (4.30-5.90) m/uL Hgb 11.5 L (13.0-17.5) gm/dL Hct 35.8 L (39.0-53.0) % Plt Count 650 H (150-450) k/uL Neutrophils # 15.9 H (1.3-7.7) k/uL Monocytes # 1.2 H (0-1.0) k/uL Chloride 111 H (98-107) mmol/L BUN 49 H (9-20) mg/dL Glucose 170 H (74-99) mg/dL POC Glucose (mg/dL) (75-99) mg/dL AST 135 H (17-59) U/L ALT 223 H (4-49) U/L Alkaline Phosphatase 161 H (38-126) U/L Total Protein 5.7 L (6.3-8.2) g/dL Albumin 2.8 L (3.5-5.0) g/dL Assessment and Plan Assessment: This is a 74-year-old male with past medical history noted below who was brought into the emergency room after he was found unresponsive by EMS and was having agonal breathing. Unresponsiveness, suspected secondary to bradycardia with complete heart block, now resolved Acute hypoxic respiratory failure requiring intubation and mechanical ventilation. Now extubated on 3 L of oxygen by nasal cannula Community-acquired pneumonia versus aspiration pneumonia -Initially had transvenous pacer for third-degree AV block on 09/08/20, then had temporary pacer placed. -Status post bronch with BAL on 09/11, cultures negative -COVID 19 PCR negative -Started on IV Solu-Medrol and now transitioned to oral prednisone as directed by pulmonology -Infectious disease following: Patient on aztreonam and vancomycin managed by infectious disease -Echocardiogram unremarkable with LVEF 55-60% and normal LV wall thickness Chronic aspiration/moderate severe malnutrition Patient continued to aspirate on feeding trials Status post PEG tube on 09/24 Acute delirium/agitation, now resolved Started on Seroquel by ICU team Steroid-induced hyperglycemia, improved. A1c 5.4 Continue sliding scale insulin with blood sugar checks every 6 hours. Fluid overload Continue lasix, started on IV Lasix 40 mg twice daily and will be transitioned today to oral Lasix 40 mg twice daily Third-degree heart block -Temporary pacer placed -Planning permanent pacemaker placement awaiting cardiology recommendations Hypothyroidism -Continue Synthroid Lactic acidosis, resolved Hyponatremia, hypernatremia resolved Acute kidney injury, resolved General weakness PT following DVT prophylaxis: heparin Discussed with: patient, nursing Anticipated discharge: Pending clinical course Anticipated discharge place: likely will need rehab
--- NOTE | 2020-09-26 11:29 | P.PN ---
Subjective Progress Note Date: 09/26/20 CHIEF COMPLAINT: Aspiration pneumonia, third-degree AV block HISTORY OF PRESENT ILLNESS: Patient is status post PEG tube placement with Dr. Dunbar. Patient is having minimal residual with his tube feedings. He is currently at 30 mL per hour. He is to reaches goal of 45 mL per hour later today. He is having bowel movements. WBC 8.6 Afebrile. WBC 18.7 albumin 2.6 PHYSICAL EXAM: VITAL SIGNS: Reviewed. GENERAL: Well-developed in no acute distress. HEENT: No sclera icterus. Extraocular movements grossly intact. Moist buccal mucosa. Head is atraumatic, normocephalic. ABDOMEN: Soft. Nondistended. Nontender. PEG tube site clean dry and intact NEUROLOGIC: Alert and oriented. Cranial nerves II through XII grossly intact. ASSESSMENT: 1. Dysphagia, aspiration pneumonia and Severe protein calorie malnutrition status post PEG tube placement PLAN: -Continue PEG tube feedings. Titrate to goal as per dietitian recommendations. -Continue supportive care Physician [employer] Nurse note has been reviewed by physician. Signing provider agrees with the documented findings, assessment, and plan of care. Objective - Vital Signs Vital signs: Vital Signs Temp 97.6 F 09/26/20 08:00 Pulse 70 09/26/20 11:00 Resp 15 09/26/20 11:00 BP 111/59 09/26/20 11:00 Pulse Ox 96 09/26/20 11:00 Intake & Output 09/25/20 09/26/20 09/26/20 18:59 06:59 18:59 Intake Total 455 590 280 Output Total 1535 1275 830 Balance -1357 -685 -550 Weight 78.3 kg Intake: IV 345 240 100 0.9 NACL 120 240 100 Potassium Phosphate 20 225 mmol Magnesium Sulfate gm 1 gm Calcium Gluconate 1 gm Mvi, Adult No.4 with Vit K 10 ml Trace (Conc- 1Ml/Dose) 1 ml Potassium Acetate 14 meq In Amino Acids 5 %/Dextrose 20 % 1 ,000 ml @ 75 mls/hr IV . BY DURATION [facility] Rx#: [id number] Tube Feeding 80 290 180 Other 30 60 Output: Urine 1535 1275 830 Other: Voiding Method Indwelling Catheter Indwelling Catheter Indwelling Catheter # Bowel Movements 1 ABP, PAP, CO, CI - Last Documented Arterial Blood Pressure 71/59 - Labs CBC & Chem 7: 09/26/20 03:22 09/26/20 03:22 Labs: Abnormal Lab Results - Last 24 Hours (Table) 09/25/20 09/25/20 09/25/20 Range/Units 11:50 16:27 23:52 WBC (3.8-10.6) k/uL RBC (4.30-5.90) m/uL Hgb (13.0-17.5) gm/dL Hct (39.0-53.0) % Plt Count (150-450) k/uL Neutrophils # (1.3-7.7) k/uL Monocytes # (0-1.0) k/uL Chloride (98-107) mmol/L BUN (9-20) mg/dL Glucose (74-99) mg/dL POC Glucose (mg/dL) 109 H 129 H 150 H (75-99) mg/dL AST (17-59) U/L ALT (4-49) U/L Alkaline Phosphatase (38-126) U/L Total Protein (6.3-8.2) g/dL Albumin (3.5-5.0) g/dL 09/26/20 09/26/20 Range/Units 03:22 03:22 WBC 18.6 H (3.8-10.6) k/uL RBC 3.71 L (4.30-5.90) m/uL Hgb 11.5 L (13.0-17.5) gm/dL Hct 35.8 L (39.0-53.0) % Plt Count 650 H (150-450) k/uL Neutrophils # 15.9 H (1.3-7.7) k/uL Monocytes # 1.2 H (0-1.0) k/uL Chloride 111 H (98-107) mmol/L BUN 49 H (9-20) mg/dL Glucose 170 H (74-99) mg/dL POC Glucose (mg/dL) (75-99) mg/dL AST 135 H (17-59) U/L ALT 223 H (4-49) U/L Alkaline Phosphatase 161 H (38-126) U/L Total Protein 5.7 L (6.3-8.2) g/dL Albumin 2.8 L (3.5-5.0) g/dL
[2020-09-26] MEDS: QUEtiapine 50 MG TAB PO SCH ×2 (12:00→20:51)
[2020-09-26 13:18] LABS: Glucose,Whole Blood 173 mg/dL (75-99)
--- NOTE | 2020-09-26 13:36 | P.PN ---
Subjective HISTORY OF PRESENTING ILLNESS This is a pleasant 74-year-old male past medical history significant for hypertension only on spironolactone and abdominal ventral hernia. Patient was found to be somewhat confused and initially thought he was having a stroke as he was unresponsive. Patient was noted to be bradycardic with third-degree heart block and TVP was initially placed then an externalized PPM was placed. Patient was intubated and then extubated however has had recurrent aspiration and aspiration pneumonia. 09/25/2020 Patient seen and examined. He continues to have tube feeds by his PEG tube. Patient is being diuresed with Lasix 40 mg every 12 hours. He denies any chest pain or pressure. Patient is off of antibiotics and white blood cell count thought may be related to steroids. He was changed to prednisone 30 mg daily today. REVIEW OF SYSTEMS At the time of my exam: Denies chest pain or pressure. No abdominal pain. Continued dysphasia. Positive fatigue. PHYSICAL EXAMINATION Blood pressure 122/66, pulse 78, oxygen saturation 98 % on 3 L high flow CONSTITUTIONAL: Chronically ill-appearing, alert and oriented HEENT: Head is normocephalic. Pupils are equal, round. Sclerae anicteric. Mucous membranes of the mouth are moist. No JVD. No carotid bruit. CHEST EXAMINATION: Diffuse rhonchi bilaterally HEART EXAMINATION: Regular rate and rhythm, S1, S2 heard. No murmurs, gallops or rub. ABDOMEN: Soft, nontender. Positive bowel sounds. EXTREMITIES: 2+ peripheral pulses, no lower extremity edema and no calf tend erness, + cool extremities and mild cyanosis of extremities. NEUROLOGIC EXAMINATION: Alert and oriented ASSESSMENT 1. Third-degree heart block, status post externalized pacemaker 2. Acute hypoxemic respiratory failure with recurrent aspiration 3. Toxic metabolic encephalopathy, improved 4. Elevated troponin, likely type II mechanism from sepsis 5. Lactic acidosis, improved 6. Acute kidney injury, improved 7. History of hypertension, currently off antihypertensives 8. Aspiration, status post PEG tube placement 9. Leukocytosis, likely related to aspiration PLAN Continue to monitor leukocytosis before consideration of changing externalized pacemaker for permanent pacemaker. Patient continues to have leukocytosis which may be related to steroids. Patient is being monitored off of antibiotics and has been afebrile. I will discuss with Dr. Clarke regarding possible timing of permanent pacemaker placement. Objective - Vital Signs Vital signs: Vital Signs Temp 97.6 F 01/13/21 12:00 Pulse 112 H 09/26/20 13:22 Resp 15 09/26/20 13:00 BP 122/66 09/26/20 13:00 Pulse Ox 98 09/26/20 13:00 Intake & Output 09/25/20 09/26/20 09/26/20 18:59 06:59 18:59 Intake Total 455 590 440 Output Total 1535 1275 1070 [facility] -1080 -685 -630 Weight 78.3 kg Intake: IV 345 240 140 0.9 NACL 120 240 140 Potassium Phosphate 20 225 mmol Magnesium Sulfate gm 1 gm Calcium Gluconate 1 gm Mvi, Adult No.4 with Vit K 10 ml Trace (Conc- 1Ml/Dose) 1 ml Potassium Acetate 14 meq In Amino Acids 5 %/Dextrose 20 % 1 ,000 ml @ 75 mls/hr IV . BY [facility] Rx#: [id number] Tube Feeding 80 290 300 Other 30 60 Output: Urine 1535 1275 1070 Other: Voiding Method Indwelling Catheter Indwelling Catheter Indwelling Catheter # Bowel Movements 1 ABP, PAP, CO, CI - Last Documented Arterial Blood Pressure 71/59 - Labs CBC & Chem 7: 09/26/20 03:22 09/26/20 03:22 Labs: Abnormal Lab Results - Last 24 Hours (Table) 09/25/20 09/25/20 09/26/20 Range/Units 16:27 23:52 03:22 WBC (3.8-10.6) k/uL RBC (4.30-5.90) m/uL Hgb (13.0-17.5) gm/dL Hct (39.0-53.0) % Plt Count (150-450) k/uL Neutrophils # (1.3-7.7) k/uL Monocytes # (0-1.0) k/uL Chloride 111 H (98-107) mmol/L BUN 49 H (9-20) mg/dL Glucose 170 H (74-99) mg/dL POC Glucose (mg/dL) 129 H 150 H (75-99) mg/dL AST 135 H (17-59) U/L ALT 223 H (4-49) U/L Alkaline Phosphatase 161 H (38-126) U/L Total Protein 5.7 L (6.3-8.2) g/dL Albumin 2.8 L (3.5-5.0) g/dL 09/26/20 09/26/20 Range/Units 03:22 13:17 WBC 18.6 H (3.8-10.6) k/uL RBC 3.71 L (4.30-5.90) m/uL Hgb 11.5 L (13.0-17.5) gm/dL Hct 35.8 L (39.0-53.0) % Plt Count 650 H (150-450) k/uL Neutrophils # 15.9 H (1.3-7.7) k/uL Monocytes # 1.2 H (0-1.0) k/uL Chloride (98-107) mmol/L BUN (9-20) mg/dL Glucose (74-99) mg/dL POC Glucose (mg/dL) 173 H (75-99) mg/dL AST (17-59) U/L ALT (4-49) U/L Alkaline Phosphatase (38-126) U/L Total Protein (6.3-8.2) g/dL Albumin (3.5-5.0) g/dL
[2020-09-26] MEDS: VANCOMYCIN 1,500 MG in SODIUM CHLORIDE 0.9% 250 ML IVPB SCH (14:26)
--- NOTE | 2020-09-26 14:58 | P.OP ---
Date of Procedure: 09/24/20 Preoperative Diagnosis: Malnutrition Postoperative Diagnosis: Malnutrition Procedure(s) Performed: EGD with PEG tube placement Anesthesia: MAC Surgeon: Shaw Dunbar Pathology: none sent Condition: stable Disposition: PACU Description of Procedure: The patient's placed on the endoscopy table in the lateral position. He received IV sedation. The gastro-/oropharynx passed in the esophagus and stomach. The stomach was insufflated with air. A suitable light reflux seen the anterior abdominal wall. The skin was anesthetized. 11 blade was then used to make a skin incision. The needles placed and stomach under direct visualization. The needles and snare. The wire was placed through the needle. Wire was snared. The wire and brought the oropharynx. The PEG tube placed overtop the wire and brought down and stomach. The PEG tube was secured at 3 cm sterling. The one-piece bolster was used to secure the PEG tube. Patient top she will was sent to recovery in stable condition.
[2020-09-26] MEDS: FUROSEMIDE 40 MG TAB PO SCH (16:19)
[2020-09-26 18:50] LABS: Glucose,Whole Blood 134 mg/dL (75-99)
[2020-09-26] MEDS: ANIDULAFUNGIN 100 MG in SODIUM CHLORIDE 0.9% 100 ML IVPB SCH (22:47)
--- NOTE | 2020-09-26 22:59 | PN ---
PROGRESS NOTE DATE OF SERVICE: 09/26/2020 REASON FOR FOLLOWUP: Leukocytosis, likely oropharyngeal candidiasis. INTERVAL HISTORY: The patient is currently afebrile. The patient has been breathing comfortably. The patient remains slightly confused. No agitation has been noted. No vomiting or any diarrhea. PHYSICAL EXAMINATION: Blood pressure is 127/84 with a pulse of 100, temperature 98. He is 98% on 2 L nasal cannula. General description is an elderly male up in the chair in no distress. RESPIRATORY SYSTEM: Unlabored breathing with decreased breath sounds at the base. No wheeze. HEART: S1, S2. Regular rate and rhythm. ABDOMEN: Soft. No tenderness. The patient's oral cavity did have evidence of thrush. DIAGNOSTIC IMPRESSION AND PLAN: Patient with elevated white count, multifactorial, in this patient with a possible component of thrush. Unfortunately the patient is unable to tolerate swish and swallow and is on medication that will the use of Diflucan. Eraxis will be restarted. White count will be monitored. Continue with supportive care. MMODL / IJN: [id number] /
[2020-09-26 23:45] LABS: Glucose,Whole Blood 181 mg/dL (75-99)
[2020-09-27] MEDS: VANCOMYCIN 1,500 MG in SODIUM CHLORIDE 0.9% 250 ML IVPB SCH (04:20)
[2020-09-27] MEDS ORDERED: VANCOMYCIN TROUGH DUE 1 EACH MISC MISCELLANE ONE (05:00)
[2020-09-27 06:07] LABS: Glucose,Whole Blood 158 mg/dL (75-99)
[2020-09-27] MEDS: PANTOPRAZOLE 40 MG TABLET PO SCH (06:08)
[2020-09-27] MEDS: INSULIN ASPART (NovoLOG) 100 UNIT/ML VIAL SQ SCH ×3 (06:08→18:50)
[2020-09-27 06:22] LABS: HCT 36.4 % (39.0-53.0); HGB 11.3 gm/dL (13.0-17.5); Hypochromasia Slight; MCH 30.4 pg (25.0-35.0); MCV 97.9 fL (80.0-100.0); Mean Platelet Volume 8.7; Platelet Count 645 k/uL (150-450); RBC 3.72 m/uL (4.30-5.90); RDW 14.9 % (11.5-15.5); WBC 18.9 k/uL (3.8-10.6)
[2020-09-27 06:24] LABS: ALT 285 U/L (4-49); AST 178 U/L (17-59); African American GFR (CKD) >90 (>60 ml/min/1.73 sqM); Albumin 2.8 g/dL (3.5-5.0); Alkaline Phosphatase 190 U/L (38-126); Anion Gap 4 mmol/L; Blood Urea Nitrogen 53 mg/dL (9-20); Calcium 8.8 mg/dL (8.4-10.2); Carbon Dioxide 29 mmol/L (22-30); Chloride 114 mmol/L (98-107); Glucose 158 mg/dL (74-99); Non-African American GFR(CKD) >90 (>60 ml/min/1.73 sqM); Sodium 147 mmol/L (137-145); Total Bilirubin 0.5 mg/dL (0.2-1.3); Total Protein 5.6 g/dL (6.3-8.2)
[2020-09-27] MEDS ORDERED: LEVOTHYROXINE 100 MCG TAB PO SCH (06:30)
[2020-09-27 07:00] LABS: Lymphocytes # (M) 1.32 k/uL (1.0-4.8); Monocytes # (M) 1.51 k/uL (0-1.0); Myelocytes # (M) 0.76 k/uL (0); Myelocytes % 4 %; Neutrophils % (M) 82 %; Nucleated Red Blood Cells 0 /100 WBC (0-0); Total Cells Counted 200
[2020-09-27] MEDS: LEVOTHYROXINE 100 MCG TAB PO SCH (08:58)
[2020-09-27] MEDS: FUROSEMIDE 40 MG TAB PO SCH ×2 (08:59→15:50)
[2020-09-27] MEDS: predniSONE 10 MG TAB PO SCH (08:59)
[2020-09-27] MEDS: QUEtiapine 50 MG TAB PO SCH ×2 (08:59→20:22)
[2020-09-27] MEDS: HEPARIN SODIUM,PORCINE 5,000 UNIT/ML 1 ML VIAL SQ SCH ×2 (08:59→15:49)
[2020-09-27] MEDS: IPRATROPIUM-ALBUTEROL 3 ML NEB INHALATION SCH ×5 (09:09→21:11)
--- NOTE | 2020-09-27 11:32 | P.PN ---
Subjective Progress Note Date: 09/27/20 CHIEF COMPLAINT: Aspiration pneumonia, third-degree AV block HISTORY OF PRESENT ILLNESS: Patient is status post PEG tube placement with Dr. Dunbar. Patient is tolerating tube feeds. He is at goal at 45 mL per hour. No residual reported. Afebrile. WBC 18.9 PHYSICAL EXAM: VITAL SIGNS: Reviewed. GENERAL: Well-developed in no acute distress. HEENT: No sclera icterus. Extraocular movements grossly intact. Moist buccal mucosa. Head is atraumatic, normocephalic. ABDOMEN: Soft. Nondistended. Nontender. PEG tube site clean dry and intact NEUROLOGIC: Alert and oriented. Cranial nerves II through XII grossly intact. ASSESSMENT: 1. Dysphagia, aspiration pneumonia and Severe protein calorie malnutrition status post PEG tube placement PLAN: -Continue PEG tube feedings. Patient at goal -Continue supportive care Physician Clinical Business Analyst note has been reviewed by physician. Signing provider agrees with the documented findings, assessment, and plan of care. Objective - Vital Signs Vital signs: Vital Signs Temp 97.5 F L 09/27/20 08:00 Pulse 101 H 09/27/20 09:20 Resp 20 09/27/20 08:00 BP 103/52 09/27/20 08:00 Pulse Ox 93 L 09/27/20 09:09 Intake & Output 09/26/20 09/27/20 09/27/20 18:59 06:59 18:59 Intake Total 875 370 Output Total 1360 1160 Balance -485 -790 Weight 78 kg Intake: IV 260 40 0.9 NACL 260 40 Tube Feeding 615 270 Other 60 Output: Urine 1360 1160 Other: Voiding Method Indwelling Catheter Indwelling Catheter # Voids 0 ABP, PAP, CO, CI - Last Documented Arterial Blood Pressure 71/59 - Labs CBC & Chem 7: 09/27/20 05:18 09/27/20 05:18 Labs: Abnormal Lab Results - Last 24 Hours (Table) 09/26/20 09/26/20 09/26/20 Range/Units 13:17 18:48 23:44 WBC (3.8-10.6) k/uL RBC (4.30-5.90) m/uL Hgb (13.0-17.5) gm/dL Hct (39.0-53.0) % Plt Count (150-450) k/uL Neutrophils # (Manual) (1.3-7.7) k/uL Monocytes # (Manual) (0-1.0) k/uL Myelocytes # (Manual) (0) k/uL Sodium (137-145) mmol/L Chloride (98-107) mmol/L BUN (9-20) mg/dL Glucose (74-99) mg/dL POC Glucose (mg/dL) 173 H 134 H 181 H (75-99) mg/dL AST (17-59) U/L ALT (4-49) U/L Alkaline Phosphatase (38-126) U/L Total Protein (6.3-8.2) g/dL Albumin (3.5-5.0) g/dL 09/27/20 09/27/20 09/27/20 Range/Units 05:18 05:18 06:05 WBC 18.9 H (3.8-10.6) k/uL RBC 3.72 L (4.30-5.90) m/uL Hgb 11.3 L (13.0-17.5) gm/dL Hct 36.4 L (39.0-53.0) % Plt Count 645 H (150-450) k/uL Neutrophils # (Manual) 15.50 H (1.3-7.7) k/uL Monocytes # (Manual) 1.51 H (0-1.0) k/uL Myelocytes # (Manual) 0.76 H (0) k/uL Sodium 147 H (137-145) mmol/L Chloride 114 H (98-107) mmol/L BUN 53 H (9-20) mg/dL Glucose 158 H (74-99) mg/dL POC Glucose (mg/dL) 158 H (75-99) mg/dL AST 178 H (17-59) U/L ALT 285 H (4-49) U/L Alkaline Phosphatase 190 H (38-126) U/L Total Protein 5.6 L (6.3-8.2) g/dL Albumin 2.8 L (3.5-5.0) g/dL
[2020-09-27 12:03] LABS: Glucose,Whole Blood 128 mg/dL (75-99)
--- NOTE | 2020-09-27 12:39 | FL ---
EXAMINATION TYPE: FL barium swallow w video DATE OF EXAM: 09/27/2020 MODIFIED SWALLOW / DEGLUTITION STUDY CLINICAL HISTORY: Dysphagia. TECHNIQUE: Deglutition study is performed utilizing honey thick liquid barium and barium thick apple sauce. 1.44 minutes of fluoro time and 0 images obtained. COMPARISON: None. FINDINGS: The oral and pharyngeal phases show satisfactory initiation and propagation with all modali ties tested. There is silent aspiration with Honey thick liquid barium single episode after a few at tempts without aspiration, occasional transient penetration. No penetration or aspiration with barium and thick applesauce. Moderate to severe pharyngeal residuals were appreciated. IMPRESSION: Silent aspiration with Honey thick liquid barium. Please refer to speech therapist notes for further details if necessary.
--- NOTE | 2020-09-27 13:58 | P.PN ---
Subjective Progress Note Date: 09/27/20 Patient is doing well today. There is no acute overnight events reported to me by nursing staff. Patient does not have any complaints. Objective - Vital Signs Vital signs: Vital Signs Temp 97.8 F 09/27/20 12:00 Pulse 83 09/27/20 12:00 Resp 20 09/27/20 12:00 BP 108/56 09/27/20 12:00 Pulse Ox 95 09/27/20 12:00 Intake & Output 09/26/20 09/27/20 09/27/20 18:59 06:59 18:59 Intake Total 875 370 Output Total 1360 1160 Balance -485 -790 Weight 78 kg Intake: IV 260 40 0.9 NACL 260 40 Tube Feeding 615 270 Other 60 Output: Urine 1360 1160 Other: Voiding Method Indwelling Catheter Indwelling Catheter # Voids 0 ABP, PAP, CO, CI - Last Documented Arterial Blood Pressure 71/59 - Exam General: The patient is awake and alert, in no distress Eye: there is normal conjunctiva bilaterally. Neck: The neck is supple, there is no JVD. Cardiovascular: Normal S1-S2, no S3-S4, no murmurs. Respiratory: Lungs clear to auscultation bilaterally Gastrointestinal: Abdomen is soft, nontender Musculoskeletal: There is +1 pedal edema. Neurological:. Speech is normal. Skin: Skin is warm and dry - Labs CBC & Chem 7: 09/27/20 05:18 09/27/20 05:18 Labs: Abnormal Lab Results - Last 24 Hours (Table) 09/26/20 09/26/20 09/27/20 Range/Units 18:48 23:44 05:18 WBC 18.9 H (3.8-10.6) k/uL RBC 3.72 L (4.30-5.90) m/uL Hgb 11.3 L (13.0-17.5) gm/dL Hct 36.4 L (39.0-53.0) % Plt Count 645 H (150-450) k/uL Neutrophils # (Manual) 15.50 H (1.3-7.7) k/uL Monocytes # (Manual) 1.51 H (0-1.0) k/uL Myelocytes # (Manual) 0.76 H (0) k/uL Sodium (137-145) mmol/L Chloride (98-107) mmol/L BUN (9-20) mg/dL Glucose (74-99) mg/dL POC Glucose (mg/dL) 134 H 181 H (75-99) mg/dL AST (17-59) U/L ALT (4-49) U/L Alkaline Phosphatase (38-126) U/L Total Protein (6.3-8.2) g/dL Albumin (3.5-5.0) g/dL 09/27/20 09/27/20 09/27/20 Range/Units 05:18 06:05 11:47 WBC (3.8-10.6) k/uL RBC (4.30-5.90) m/uL Hgb (13.0-17.5) gm/dL Hct (39.0-53.0) % Plt Count (150-450) k/uL Neutrophils # (Manual) (1.3-7.7) k/uL Monocytes # (Manual) (0-1.0) k/uL Myelocytes # (Manual) (0) k/uL Sodium 147 H (137-145) mmol/L Chloride 114 H (98-107) mmol/L BUN 53 H (9-20) mg/dL Glucose 158 H (74-99) mg/dL POC Glucose (mg/dL) 158 H 128 H (75-99) mg/dL AST 178 H (17-59) U/L ALT 285 H (4-49) U/L Alkaline Phosphatase 190 H (38-126) U/L Total Protein 5.6 L (6.3-8.2) g/dL Albumin 2.8 L (3.5-5.0) g/dL Assessment and Plan Assessment: This is a 74-year-old male with past medical history noted below who was brought into the emergency room after he was found unresponsive by EMS and was having agonal breathing. Unresponsiveness, suspected secondary to bradycardia with complete heart block, now resolved Acute hypoxic respiratory failure requiring intubation and mechanical ventilation., extubated on 3 L of oxygen by nasal cannula Community-acquired pneumonia versus aspiration pneumonia: Finished 10 days course of antibiotic with aztreonam and vancomycin. Third-degree heart block -Temporary pacer placed -Planning permanent pacemaker placement awaiting cardiology recommendations -Initially had transvenous pacer for third-degree AV block on 09/08/20, then had temporary pacer placed. -Status post bronch with BAL on 09/11, cultures negative -COVID 19 PCR negative -Started on IV Solu-Medrol and now transitioned to oral prednisone as directed by pulmonology -Infectious disease following: Recommended IV Eraxis for oral thrush. Patient is high risk of aspiration. -Echocardiogram unremarkable with LVEF 55-60% and normal LV wall thickness Chronic aspiration/moderate severe malnutrition Patient continued to aspirate on feeding trials Status post PEG tube on 09/24 tube feeding at goal Acute delirium/agitation, now resolved Started on Seroquel by ICU team I would decrease the dose of 50 mg at bedtime Steroid-induced hyperglycemia, improved. A1c 5.4 Continue sliding scale insulin with blood sugar checks every 6 hours. Fluid overload Improved with IV Lasix, now transitioned to oral Lasix 40 mg twice daily Hypothyroidism -Continue Synthroid Lactic acidosis, resolved Hyponatremia, hypernatremia resolved Acute kidney injury, resolved General weakness PT following DVT prophylaxis: heparin Discussed with: patient, nursing Anticipated discharge: Pending clinical course Anticipated discharge place: likely will need rehab
--- NOTE | 2020-09-27 14:55 | P.PN ---
Subjective Progress Note Date: 09/27/20 Principal diagnosis: Aspiration pneumonia, third-degree AV block On 09/24/2020 patient seen in follow-up in the intensive care unit, patient was admitted on 09/08/2020 with a diagnosis of aspiration pneumonia, sepsis, third- degree AV block. He was started on antibiotics, he required intubation and placement on mechanical ventilator on 09/08/2020 and was successfully weaned and extubated from mechanical ventilator on 09/13/2020. Patient remains in the third-degree AV block, external right subclavian pacemaker was placed the intention of replacing it with the permanent pacemaker down the road once the patient completely requires from his pneumonia. He seen in follow-up today on the 09/24/2020 in the intensive care unit, he is awake and alert, his FiO2 is currently down to 5 L, his breathing comfortably, denies any acute distress, no altered mentation, he is answering questions appropriately, remains on Precedex at 0.2 mics per kilo per minute, 0.9 at 20 ML per hour, TPN at 75 ML per hour, and lipids. Patient has been nothing by mouth in view of his aspiration, and surgical consultation was placed and today patient will be taken to the or for placement of a PEG tube. His vital signs have been stable, his been afebrile, he is not on any vasopressor support. His chest x-ray has been reviewed showing interstitial edema, low lung volumes, and patchy densities at the lung bases. She remains on IV Lasix at 40 mg every 12 hours, and antibiotic coverage in the form of Azactam, and vancomycin. Patient is also on IV steroids at 40 mg every 12 hours. He is status post bronchoscopy with bronchoalveolar lavage, and his BAL cultures have been negative. Today's labs have been reviewed, with blood cell count is trending down, down to 15.5 on today's labs, hemoglobin is 11.3, sodium is 143, potassium 3.8, chloride is 111, CO2 is 26, UN is 40 creatinine 0.59. Patient is an +684 mL fluid balance over the last 24 hours. His not appear to be in any acute distress. On 09/25/2020 patient seen in follow-up in the intensive care unit, he is awake and alert, oriented 3, seems to be very comfortable, no acute distress, no dyspnea, complaints of chest pain, patient does have occasional cough, nonproductive, without significant congestion. His cough is nice and strong, patient has been nothing by mouth, he received a PEG tube yesterday in the operating room, tolerated procedure well, he is anticipated to be started on enteral feedings today, he remains on TPN in the meantime at 75 ML per hour, and lipids every 12 hours. In point and was seen at a rate of KVO, his external temporary pacemaker is in place, security is right chest wall, and patient is 100% paced on the monitor, he remains on low dose Precedex which we will discontinue today, no confusion or agitation noted, will DC the Precedex, we'll add small dose oral Seroquel 25 mg twice daily, no acute events overnight. Today's labs have been reviewed, showing white blood cell, beaching 0.7, hemoglobin of 11.7, sodium is 142, potassium is 4.4, chloride is 108, BUN is 40 creatinine 0.61. Patient remains on bronchodilators, IV steroids Solu-Medrol 40 mg every 12 hours, and Azactam and vancomycin, ID service is following, no growth noted on his blood sputum or BAL cultures On 02/24/2021 patient seen in follow-up in the intensive care unit, he is resting comfortably in bed, currently 5 L of oxygen his pulse ox is 97%, can probably wean his FiO2 down further, breathing comfortably, lung sounds reveal some scattered wheezes, some rhonchi Patient has a productive cough, and he is able to bring up some brownish colored sputum. The, but chest pain, his external pacemaker still in place in the right subclavian area, clean dry and intact, covered with dressing. He's had no fever or chills, history of the DC the Precedex, and started the patient on low-dose Seroquel for episodes of restlessness, confusion, nursing staff reports episode of restlessness, confusion yesterday in the evening. During those episodes patient will try to leave. He did have a when necessary dose of although given to him. PEG tube is in place, he is receiving tube feedings in the form of TwoCal HN at 50 ML per hour, he is tolerating tube feeding very well, no abdominal pain. Remains nothing by mouth, TPN has been discontinued. Today's chest x-ray has been reviewed showing diffuse patchy bilateral infiltrates stable in appearance. Patient remains on Lasix 40 mg every 12 hours, he is on nebulized bronchodilators, he is on vancomycin, Azactam was discontinued, his bronchial lavage cultures have shown no growth. On 09/27/2020 patient seen in follow-up on selective care unit, he is resting comfortably in bed, 1 L of oxygen pulse ox 95%, reading comfortably, his been afebrile, hemodynamically is been stable, remains on antibiotics for aspiration pneumonia, currently on Eraxis only, ID service is following, vancomycin was discontinued, his labs have been reviewed, is persistent leukocytosis, white blood cell count of 18.9, hemoglobin of 11.3, sodium is 147, potassium is 4.0, chloride is 114, B1 is 53, creatinine 0.73. No growth on blood cultures or bronchoalveolar lavage Objective - Vital Signs Vital signs: Vital Signs Temp 97.8 F 09/27/20 12:00 Pulse 100 09/27/20 13:10 Resp 20 09/27/20 12:00 BP 108/56 09/27/20 12:00 Pulse Ox 95 09/27/20 12:00 Intake & Output 09/26/20 09/27/20 09/27/20 18:59 06:59 18:59 Intake Total 875 370 45 Output Total 1360 1160 Balance -485 -790 45 Weight 78 kg Intake: IV 260 40 0.9 NACL 260 40 Tube Feeding 615 270 45 Other 60 Output: Urine 1360 1160 Other: Voiding Method Indwelling Catheter Indwelling Catheter Indwelling Catheter # Voids 0 ABP, PAP, CO, CI - Last Documented Arterial Blood Pressure 71/59 - Exam GENERAL EXAM: 74-year-old white male, 1 L of oxygen, no acute distress comfortable in no apparent distress. HEAD: Normocephalic/atraumatic. EYES: Normal reaction of pupils, equal size. Conjunctiva pink, sclera white. NOSE: Clear with pink turbinates. THROAT: No erythema or exudates. NECK: No masses, no JVD, no thyroid enlargement, no adenopathy. CHEST: No chest wall deformity. Symmetrical expansion. Right subclavian area external pacemaker, patient is 100% AV paced on the monitor LUNGS: Equal air entry with scattered wheezes, with a few rhonchi CVS: Irregular rate and rhythm, normal S1 and S2, no gallops, no murmurs, no rubs ABDOMEN: Soft, nontender. No hepatosplenomegaly, normal bowel sounds, no guarding or rigidity. EXTREMITIES: No clubbing, 1+ pretibial edema and mild upper extremity edema, no cyanosis, 2+ pulses and upper and lower extremities. MUSCULOSKELETAL: Muscle strength and tone normal. SPINE: No scoliosis or deformity SKIN: No rashes CENTRAL NERVOUS SYSTEM: Alert and oriented -3. No focal deficits, tone is normal in all 4 extremities. PSYCHIATRIC: Alert and oriented -3. Appropriate affect. Intact judgment and insight. - Labs CBC & Chem 7: 09/27/20 05:18 09/27/20 05:18 Labs: Abnormal Lab Results - Last 24 Hours (Table) 09/26/20 09/26/20 09/27/20 Range/Units 18:48 23:44 05:18 WBC 18.9 H (3.8-10.6) k/uL RBC 3.72 L (4.30-5.90) m/uL Hgb 11.3 L (13.0-17.5) gm/dL Hct 36.4 L (39.0-53.0) % Plt Count 645 H (150-450) k/uL Neutrophils # (Manual) 15.50 H (1.3-7.7) k/uL Monocytes # (Manual) 1.51 H (0-1.0) k/uL Myelocytes # (Manual) 0.76 H (0) k/uL Sodium (137-145) mmol/L Chloride (98-107) mmol/L BUN (9-20) mg/dL Glucose (74-99) mg/dL POC Glucose (mg/dL) 134 H 181 H (75-99) mg/dL AST (17-59) U/L ALT (4-49) U/L Alkaline Phosphatase (38-126) U/L Total Protein (6.3-8.2) g/dL Albumin (3.5-5.0) g/dL 09/27/20 09/27/20 09/27/20 Range/Units 05:18 06:05 11:47 WBC (3.8-10.6) k/uL RBC (4.30-5.90) m/uL Hgb (13.0-17.5) gm/dL Hct (39.0-53.0) % Plt Count (150-450) k/uL Neutrophils # (Manual) (1.3-7.7) k/uL Monocytes # (Manual) (0-1.0) k/uL Myelocytes # (Manual) (0) k/uL Sodium 147 H (137-145) mmol/L Chloride 114 H (98-107) mmol/L BUN 53 H (9-20) mg/dL Glucose 158 H (74-99) mg/dL POC Glucose (mg/dL) 158 H 128 H (75-99) mg/dL AST 178 H (17-59) U/L ALT 285 H (4-49) U/L Alkaline Phosphatase 190 H (38-126) U/L Total Protein 5.6 L (6.3-8.2) g/dL Albumin 2.8 L (3.5-5.0) g/dL Assessment and Plan Plan: Assessment: #1. Acute hypoxic restaurant failure secondary to aspiration pneumonia and a component of fluid overload, interstitial edema #2. Acute complete heart block requiring temporary pacemaker implantation, and patient currently has a right subclavian area external temporary pacemaker with intention of replacing of the permanent pacemaker down the road #3. Severe metabolic acidosis, resolved #4. Acute kidney injury secondary to acute tubular necrosis, improving #5. Dyslipidemia #6. Hypothyroidism #7. Intermittent episodes of confusion, related to acute metabolic encephalopathy, improving currently on Seroquel and when necessary dose of Haldol #8. Dysphagia, aspiration pneumonia, patient had a PEG tube inserted on 09/24/2020, tolerating tube feedings #9. Leukocytosis, multifactorial, possibly related to oropharyngeal candidiasis no growth on the bronchoalveolar lavage, patient has received antibiotics form of Azactam, vancomycin, Diflucan. Currently just on Eraxis Plan: Continue antibiotics per ID service recommendations, currently just on Eraxis. he remains on oral Lasix, his FiO2 is currently down to 1 L, encourage deep breathing and coughing, maintain aspiration precautions, patient had a modified barium swallow which showed silent aspiration with honey thick liquid barium. Continue with tube feedings per the PEG tube or nutritional support. Consult physical therapy, and is generally weak, likely will need ECF rehab placement after discharge. Follow up chest x-ray tomorrow I performed a history & physical examination of the patient and discussed their management with my nurse practitioner, Lilibeth Huitron. I reviewed the nurse practitioner's note and agree with the documented findings and plan of care. Lung sounds are positive for a few scattered rhonchi.. The findings and the impression was discussed with the patient. I attest to the documentation by the nurse practitioner. Time with Patient: Less than 30
--- NOTE | 2020-09-27 16:12 | P.PN ---
Subjective HISTORY OF PRESENTING ILLNESS This is a pleasant 74-year-old male past medical history significant for hypertension only on spironolactone and abdominal ventral hernia. Patient was found to be somewhat confused and initially thought he was having a stroke as he was unresponsive. Patient was noted to be bradycardic with third-degree heart block and TVP was initially placed then an externalized PPM was placed. Patient was intubated and then extubated however has had recurrent aspiration and aspiration pneumonia. 09/27/2020 Patient seen and examined. Patient was transferred up from ICU. He denies any chest pain or pressure. He continues to receive tube feeds from his PEG tube. He did undergo swallow study which showed silent aspiration with honey thick liquid barium. Patient continues to have elevated white count 18.9 today with predominantly neutrophils 15.5. Patient has mild hypernatremia. Patient has been afebrile over the last 24 hours. Chest x-ray x-ray showed continued diffuse patchy bilateral infiltrates correlate for pneumonia stable in appearance. REVIEW OF SYSTEMS At the time of my exam: Denies chest pain or pressure. No abdominal pain. Continued dysphasia. Positive fatigue. PHYSICAL EXAMINATION Blood pressure 118/65, pulse 86, oxygen saturation 98 % on 3 L high flow CONSTITUTIONAL: Chronically ill-appearing, alert and oriented HEENT: Head is normocephalic. Pupils are equal, round. Sclerae anicteric. Mucous membranes of the mouth are moist. No JVD. No carotid bruit. CHEST EXAMINATION: Diffuse rhonchi bilaterally HEART EXAMINATION: Regular rate and rhythm, S1, S2 heard. No murmurs, gallops or rub. ABDOMEN: Soft, nontender. Positive bowel sounds. EXTREMITIES: 2+ peripheral pulses, no lower extremity edema and no calf tenderness, + cool extremities and mild cyanosis of extremities. NEUROLOGIC EXAMINATION: Alert and oriented ASSESSMENT 1. Third-degree heart block, status post externalized pacemaker 2. Acute hypoxemic respiratory failure with recurrent aspiration 3. Toxic metabolic encephalopathy, improved 4. Elevated troponin, likely type II mechanism from sepsis 5. Lactic acidosis, improved 6. Acute kidney injury, improved 7. History of hypertension, currently off antihypertensives 8. Aspiration, status post PEG tube placement 9. Leukocytosis, likely related to aspiration PLAN Patient with continued leukocytosis. Ideally improvement in leukocytosis before consideration of changing externalized pacemaker for permanent pacemaker however this has been persistent, may be related to steroids which have been decreased to 30mg yesterday. Patient has been afebrile. Continue with rehab assessment. Possibility of sending patient to ECF with externalized PPM and outpt PPM placed in a few weeks. Further recommendations to follow. Objective - Vital Signs Vital signs: Vital Signs Temp 99.5 F 09/27/20 15:45 Pulse 86 09/27/20 15:45 Resp 18 09/27/20 15:45 BP 118/65 09/27/20 15:45 Pulse Ox 95 09/27/20 15:45 Intake & Output 09/26/20 09/27/20 09/27/20 18:59 06:59 18:59 Intake Total 875 370 225 Output Total 1360 1160 Balance -485 -790 225 Weight 78 kg Intake: IV 260 40 0.9 NACL 260 40 Tube Feeding 615 270 225 Other 60 Output: Urine 1360 1160 Other: Voiding Method Indwelling Catheter Indwelling Catheter Indwelling Catheter # Voids 0 ABP, PAP, CO, CI - Last Documented Arterial Blood Pressure 71/59 - Labs CBC & Chem 7: 09/27/20 05:18 09/27/20 05:18 Labs: Abnormal Lab Results - Last 24 Hours (Table) 09/26/20 09/26/20 09/27/20 Range/Units 18:48 23:44 05:18 WBC 18.9 H (3.8-10.6) k/uL RBC 3.72 L (4.30-5.90) m/uL Hgb 11.3 L (13.0-17.5) gm/dL Hct 36.4 L (39.0-53.0) % Plt Count 645 H (150-450) k/uL Neutrophils # (Manual) 15.50 H (1.3-7.7) k/uL Monocytes # (Manual) 1.51 H (0-1.0) k/uL Myelocytes # (Manual) 0.76 H (0) k/uL Sodium (137-145) mmol/L Chloride (98-107) mmol/L BUN (9-20) mg/dL Glucose (74-99) mg/dL POC Glucose (mg/dL) 134 H 181 H (75-99) mg/dL AST (17-59) U/L ALT (4-49) U/L Alkaline Phosphatase (38-126) U/L Total Protein (6.3-8.2) g/dL Albumin (3.5-5.0) g/dL 09/27/20 09/27/20 09/27/20 Range/Units 05:18 06:05 11:47 WBC (3.8-10.6) k/uL RBC (4.30-5.90) m/uL Hgb (13.0-17.5) gm/dL Hct (39.0-53.0) % Plt Count (150-450) k/uL Neutrophils # (Manual) (1.3-7.7) k/uL Monocytes # (Manual) (0-1.0) k/uL Myelocytes # (Manual) (0) k/uL Sodium 147 H (137-145) mmol/L Chloride 114 H (98-107) mmol/L BUN 53 H (9-20) mg/dL Glucose 158 H (74-99) mg/dL POC Glucose (mg/dL) 158 H 128 H (75-99) mg/dL AST 178 H (17-59) U/L ALT 285 H (4-49) U/L Alkaline Phosphatase 190 H (38-126) U/L Total Protein 5.6 L (6.3-8.2) g/dL Albumin 2.8 L (3.5-5.0) g/dL
[2020-09-27 17:33] LABS: Glucose,Whole Blood 170 mg/dL (75-99)
[2020-09-27] MEDS: ANIDULAFUNGIN 100 MG in SODIUM CHLORIDE 0.9% 100 ML IVPB SCH (21:22)
--- NOTE | 2020-09-27 22:28 | PN ---
PROGRESS NOTE DATE OF SERVICE: 09/27/2020 REASON FOR FOLLOWUP: Leukocytosis, oral thrush. INTERVAL HISTORY: The patient is currently afebrile. The patient is breathing comfortably on room air. Denies having any chest pain. Occasional cough. No abdominal pain and no diarrhea reported. PHYSICAL EXAMINATION: Blood pressure 114/63, pulse of 70, temperature 97.3. He is 94% on room air. General description is an elderly male up in the chair in no distress. HEENT EXAMINATION: Oral thrush. LUNGS: Unlabored breathing with decreased breath sounds at the base. No wheeze. HEART: S1, S2. Regular rate and rhythm. ABDOMEN: Soft. No tenderness. LABS: Hemoglobin is 11.3, white count 18.9, BUN of 53, creatinine 0.73. Vancomycin trough level is 23.5. DIAGNOSTIC IMPRESSION AND PLAN: Patient admitted to hospital initially with unresponsiveness and concern for aspiration pneumonia, adequately treated. Patient now with elevated white count, possibly steroid- related plus/minus thrush. Currently covered with Eraxis because of the medication use of Diflucan to continue monitor closely. Continue supportive care. MMODL / IJN: [id number] /
[2020-09-28 00:12] LABS: Glucose,Whole Blood 146 mg/dL (75-99)
[2020-09-28] MEDS: INSULIN ASPART (NovoLOG) 100 UNIT/ML VIAL SQ SCH ×4 (00:22→17:23)
[2020-09-28] MEDS: HEPARIN SODIUM,PORCINE 5,000 UNIT/ML 1 ML VIAL SQ SCH ×3 (00:22→16:09)
[2020-09-28 06:00] LABS: Glucose,Whole Blood 112 mg/dL (75-99)
[2020-09-28] MEDS: PANTOPRAZOLE 40 MG TABLET PO SCH (06:02)
[2020-09-28] MEDS: LEVOTHYROXINE 100 MCG TAB PO SCH (08:32)
[2020-09-28] MEDS: predniSONE 10 MG TAB PO SCH (08:32)
[2020-09-28] MEDS: FUROSEMIDE 40 MG TAB PO SCH ×2 (08:32→16:09)
--- NOTE | 2020-09-28 09:13 | XR ---
EXAMINATION TYPE: XR chest 1V portable DATE OF EXAM: 09/28/2020 COMPARISON: Chest x-ray 09/26/2020 HISTORY: Shortness of breath, aspiration pneumonia TECHNIQUE: Single frontal view of the chest is obtained. FINDINGS: Suspect some improvement in aeration as compared to prior exam. No evident pneumothorax or pleural effusion. Cardiac mediastinal silhouette is stable. Aorta is dense and possibly ectatic. Pac emaker is stable. There are overlying leads. Extensive thoracic spondylosis is present. IMPRESSION: There is some improvement in aeration.
[2020-09-28] MEDS: IPRATROPIUM-ALBUTEROL 3 ML NEB INHALATION SCH ×4 (09:50→20:44)
[2020-09-28 09:55] LABS: ALT 245 U/L (4-49); AST 98 U/L (17-59); African American GFR (CKD) >90 (>60 ml/min/1.73 sqM); Albumin 2.8 g/dL (3.5-5.0); Alkaline Phosphatase 156 U/L (38-126); Anion Gap 4 mmol/L; Blood Urea Nitrogen 49 mg/dL (9-20); C Reactive Protein 5.6 mg/L (<10.0); Calcium 8.6 mg/dL (8.4-10.2); Carbon Dioxide 28 mmol/L (22-30); Chloride 112 mmol/L (98-107); Glucose 109 mg/dL (74-99); HCT 34.3 % (39.0-53.0); HGB 11.1 gm/dL (13.0-17.5); Hypochromasia Slight; LDH 1191 U/L (313-618); MCH 31.6 pg (25.0-35.0); MCHC 32.4 g/dL (31.0-37.0); MCV 97.3 fL (80.0-100.0); Mean Platelet Volume 8.8; Non-African American GFR(CKD) >90 (>60 ml/min/1.73 sqM); Platelet Count 567 k/uL (150-450); Potassium 4.7 mmol/L (3.5-5.1); RBC 3.52 m/uL (4.30-5.90); RDW 14.8 % (11.5-15.5); Sodium 144 mmol/L (137-145); Total Bilirubin 0.6 mg/dL (0.2-1.3); Total Protein 5.6 g/dL (6.3-8.2); WBC 15.8 k/uL (3.8-10.6)
[2020-09-28 10:23] LABS: Band Neutrophils % 1 %; Eosinophils # (M) 0.47 k/uL (0-0.7); Metamyelocytes # (M) 0.47 k/uL (0); Metamyelocytes % 3 %; Myelocytes % 12 %; Neutrophils % (M) 59 %; Nucleated Red Blood Cells 0 /100 WBC (0-0); Total Cells Counted 200
[2020-09-28 10:24] LABS: Poikilocytosis (M) Present
--- NOTE | 2020-09-28 11:39 | P.PN ---
Subjective Progress Note Date: 09/28/20 CHIEF COMPLAINT: Aspiration pneumonia, third-degree AV block HISTORY OF PRESENT ILLNESS: Patient is status post PEG tube placement with Dr. Dunbar. Patient is tolerating tube feeds. He is at goal at 45 mL per hour. No residual reported. Afebrile. WBC 15.8 PHYSICAL EXAM: VITAL SIGNS: Reviewed. GENERAL: Well-developed in no acute distress. HEENT: No sclera icterus. Extraocular movements grossly intact. Moist buccal mucosa. Head is atraumatic, normocephalic. ABDOMEN: Soft. Nondistended. Nontender. PEG tube site clean dry and intact NEUROLOGIC: Alert and oriented. Cranial nerves II through XII grossly intact. ASSESSMENT: 1. Dysphagia, aspiration pneumonia and Severe protein calorie malnutrition status post PEG tube placement PLAN: -Continue PEG tube feedings. Patient at goal -Continue supportive care Physician Hemodialysis Lab Technician note has been reviewed by physician. Signing provider agrees with the documented findings, assessment, and plan of care. Objective - Vital Signs Vital signs: Vital Signs Temp 97.6 F 09/28/20 08:00 Pulse 80 09/28/20 11:17 Resp 18 09/28/20 11:17 BP 113/72 09/28/20 11:17 Pulse Ox 93 L 09/28/20 11:17 Intake & Output 09/27/20 09/28/20 09/28/20 18:59 06:59 18:59 Intake Total 405 540 360 Output Total 800 600 500 Balance -395 -60 -140 Weight 78 kg Intake: Tube Feeding 405 540 360 Output: Urine 800 600 500 Other: Voiding Method Indwelling Catheter Indwelling Catheter Indwelling Catheter # Voids 0 # Bowel Movements 1 ABP, PAP, CO, CI - Last Documented Arterial Blood Pressure 71/59 - Labs CBC & Chem 7: 09/28/20 08:03 09/28/20 08:03 Labs: Abnormal Lab Results - Last 24 Hours (Table) 09/27/20 09/27/20 09/28/20 Range/Units 11:47 17:19 00:10 WBC (3.8-10.6) k/uL RBC (4.30-5.90) m/uL Hgb (13.0-17.5) gm/dL Hct (39.0-53.0) % Plt Count (150-450) k/uL Neutrophils # (Manual) (1.3-7.7) k/uL Monocytes # (Manual) (0-1.0) k/uL Metamyelocytes # (Man) (0) k/uL Myelocytes # (Manual) (0) k/uL Chloride (98-107) mmol/L BUN (9-20) mg/dL Glucose (74-99) mg/dL POC Glucose (mg/dL) 128 H 170 H 146 H (75-99) mg/dL AST (17-59) U/L ALT (4-49) U/L Alkaline Phosphatase (38-126) U/L Lactate Dehydrogenase (313-618) U/L Total Protein (6.3-8.2) g/dL Albumin (3.5-5.0) g/dL 09/28/20 09/28/20 09/28/20 Range/Units 05:58 08:03 08:03 WBC 15.8 H (3.8-10.6) k/uL RBC 3.52 L (4.30-5.90) m/uL Hgb 11.1 L (13.0-17.5) gm/dL Hct 34.3 L (39.0-53.0) % Plt Count 567 H (150-450) k/uL Neutrophils # (Manual) 9.40 H (1.3-7.7) k/uL Monocytes # (Manual) 1.90 H (0-1.0) k/uL Metamyelocytes # (Man) 0.47 H (0) k/uL Myelocytes # (Manual) 1.90 H (0) k/uL Chloride 112 H (98-107) mmol/L BUN 49 H (9-20) mg/dL Glucose 109 H (74-99) mg/dL POC Glucose (mg/dL) 112 H (75-99) mg/dL AST 98 H (17-59) U/L ALT 245 H (4-49) U/L Alkaline Phosphatase 156 H (38-126) U/L Lactate Dehydrogenase 1191 H (313-618) U/L Total Protein 5.6 L (6.3-8.2) g/dL Albumin 2.8 L (3.5-5.0) g/dL
[2020-09-28 11:55] LABS: Glucose,Whole Blood 165 mg/dL (75-99)
--- NOTE | 2020-09-28 13:01 | P.PN ---
Subjective Progress Note Date: 09/28/20 Patient is doing well today. His mentation is significantly better. No acute events overnight Objective - Vital Signs Vital signs: Vital Signs Temp 97.6 F 09/28/20 08:00 Pulse 80 09/28/20 11:17 Resp 18 09/28/20 11:17 BP 113/72 09/28/20 11:17 Pulse Ox 93 L 09/28/20 11:17 Intake & Output 09/27/20 09/28/20 09/28/20 18:59 06:59 18:59 Intake Total 405 540 360 Output Total 800 600 500 Balance -395 -60 -140 Weight 78 kg Intake: Tube Feeding 405 540 360 Output: Urine 800 600 500 Other: Voiding Method Indwelling Catheter Indwelling Catheter Indwelling Catheter # Voids 0 # Bowel Movements 1 ABP, PAP, CO, CI - Last Documented Arterial Blood Pressure 71/59 - Exam General: The patient is awake and alert, in no distress Eye: there is normal conjunctiva bilaterally. Neck: The neck is supple, there is no JVD. Cardiovascular: Normal S1-S2, no S3-S4, no murmurs. Respiratory: Lungs clear to auscultation bilaterally Gastrointestinal: Abdomen is soft, nontender Musculoskeletal: There is +1 pedal edema. Neurological:. Speech is normal. Skin: Skin is warm and dry - Labs CBC & Chem 7: 09/28/20 08:03 09/28/20 08:03 Labs: Abnormal Lab Results - Last 24 Hours (Table) 09/27/20 09/28/20 09/28/20 Range/Units 17:19 00:10 05:58 WBC (3.8-10.6) k/uL RBC (4.30-5.90) m/uL Hgb (13.0-17.5) gm/dL Hct (39.0-53.0) % Plt Count (150-450) k/uL Neutrophils # (Manual) (1.3-7.7) k/uL Monocytes # (Manual) (0-1.0) k/uL Metamyelocytes # (Man) (0) k/uL Myelocytes # (Manual) (0) k/uL Chloride (98-107) mmol/L BUN (9-20) mg/dL Glucose (74-99) mg/dL POC Glucose (mg/dL) 170 H 146 H 112 H (75-99) mg/dL AST (17-59) U/L ALT (4-49) U/L Alkaline Phosphatase (38-126) U/L Lactate Dehydrogenase (313-618) U/L Total Protein (6.3-8.2) g/dL Albumin (3.5-5.0) g/dL 09/28/20 09/28/20 09/28/20 Range/Units 08:03 08:03 11:53 WBC 15.8 H (3.8-10.6) k/uL RBC 3.52 L (4.30-5.90) m/uL Hgb 11.1 L (13.0-17.5) gm/dL Hct 34.3 L (39.0-53.0) % Plt Count 567 H (150-450) k/uL Neutrophils # (Manual) 9.40 H (1.3-7.7) k/uL Monocytes # (Manual) 1.90 H (0-1.0) k/uL Metamyelocytes # (Man) 0.47 H (0) k/uL Myelocytes # (Manual) 1.90 H (0) k/uL Chloride 112 H (98-107) mmol/L BUN 49 H (9-20) mg/dL Glucose 109 H (74-99) mg/dL POC Glucose (mg/dL) 165 H (75-99) mg/dL AST 98 H (17-59) U/L ALT 245 H (4-49) U/L Alkaline Phosphatase 156 H (38-126) U/L Lactate Dehydrogenase 1191 H (313-618) U/L Total Protein 5.6 L (6.3-8.2) g/dL Albumin 2.8 L (3.5-5.0) g/dL Assessment and Plan Assessment: This is a 74-year-old male with past medical history noted below who was brought into the emergency room after he was found unresponsive by EMS and was having agonal breathing. Unresponsiveness, suspected secondary to bradycardia with complete heart block, now resolved Acute hypoxic respiratory failure requiring intubation and mechanical ventilation., extubated on 3 L of oxygen by nasal cannula Community-acquired pneumonia versus aspiration pneumonia: Finished 10 days course of antibiotic with aztreonam and vancomycin. Third-degree heart block -Temporary pacer placed -Planning permanent pacemaker placement awaiting cardiology recommendations -Initially had transvenous pacer for third-degree AV block on 09/08/20, then had temporary pacer placed. -Status post bronch with BAL on 09/11, cultures negative -COVID 19 PCR negative -Started on IV Solu-Medrol and now transitioned to oral prednisone as directed by pulmonology -Infectious disease following: Recommended IV Eraxis for oral thrush. Patient is high risk of aspiration. -Echocardiogram unremarkable with LVEF 55-60% and normal LV wall thickness Chronic aspiration/moderate severe malnutrition Patient continued to aspirate on feeding trials Status post PEG tube on 09/24 tube feeding at goal Acute delirium/agitation, now resolved Started on Seroquel 50 mg at bedtime Steroid-induced hyperglycemia, improved. A1c 5.4 Continue sliding scale insulin with blood sugar checks every 6 hours. Fluid overload Improved with IV Lasix, now transitioned to oral Lasix 40 mg twice daily Hypothyroidism -Continue Synthroid Lactic acidosis, resolved Hyponatremia, hypernatremia resolved Acute kidney injury, resolved General weakness PT following DVT prophylaxis: heparin Discussed with: patient, nursing Anticipated discharge: Pending clinical course Anticipated discharge place: likely will need rehab
--- NOTE | 2020-09-28 14:34 | P.PN ---
Subjective Progress Note Date: 09/28/20 Principal diagnosis: Aspiration pneumonia, third-degree AV block On 09/24/2020 patient seen in follow-up in the intensive care unit, patient was admitted on 09/08/2020 with a diagnosis of aspiration pneumonia, sepsis, third- degree AV block. He was started on antibiotics, he required intubation and placement on mechanical ventilator on 09/08/2020 and was successfully weaned and extubated from mechanical ventilator on 09/13/2020. Patient remains in the third-degree AV block, external right subclavian pacemaker was placed the intention of replacing it with the permanent pacemaker down the road once the patient completely requires from his pneumonia. He seen in follow-up today on the 09/24/2020 in the intensive care unit, he is awake and alert, his FiO2 is currently down to 5 L, his breathing comfortably, denies any acute distress, no altered mentation, he is answering questions appropriately, remains on Precedex at 0.2 mics per kilo per minute, 0.9 at 20 ML per hour, TPN at 75 ML per hour, and lipids. Patient has been nothing by mouth in view of his aspiration, and surgical consultation was placed and today patient will be taken to the or for placement of a PEG tube. His vital signs have been stable, his been afebrile, he is not on any vasopressor support. His chest x-ray has been reviewed showing interstitial edema, low lung volumes, and patchy densities at the lung bases. She remains on IV Lasix at 40 mg every 12 hours, and antibiotic coverage in the form of Azactam, and vancomycin. Patient is also on IV steroids at 40 mg every 12 hours. He is status post bronchoscopy with bronchoalveolar lavage, and his BAL cultures have been negative. Today's labs have been reviewed, with blood cell count is trending down, down to 15.5 on today's labs, hemoglobin is 11.3, sodium is 143, potassium 3.8, chloride is 111, CO2 is 26, UN is 40 creatinine 0.59. Patient is an +684 mL fluid balance over the last 24 hours. His not appear to be in any acute distress. On 09/25/2020 patient seen in follow-up in the intensive care unit, he is awake and alert, oriented 3, seems to be very comfortable, no acute distress, no dyspnea, complaints of chest pain, patient does have occasional cough, nonproductive, without significant congestion. His cough is nice and strong, patient has been nothing by mouth, he received a PEG tube yesterday in the operating room, tolerated procedure well, he is anticipated to be started on enteral feedings today, he remains on TPN in the meantime at 75 ML per hour, and lipids every 12 hours. In point and was seen at a rate of KVO, his external temporary pacemaker is in place, security is right chest wall, and patient is 100% paced on the monitor, he remains on low dose Precedex which we will discontinue today, no confusion or agitation noted, will DC the Precedex, we'll add small dose oral Seroquel 25 mg twice daily, no acute events overnight. Today's labs have been reviewed, showing white blood cell, beaching 0.7, hemoglobin of 11.7, sodium is 142, potassium is 4.4, chloride is 108, BUN is 40 creatinine 0.61. Patient remains on bronchodilators, IV steroids Solu-Medrol 40 mg every 12 hours, and Azactam and vancomycin, ID service is following, no growth noted on his blood sputum or BAL cultures On 02/24/2021 patient seen in follow-up in the intensive care unit, he is resting comfortably in bed, currently 5 L of oxygen his pulse ox is 97%, can probably wean his FiO2 down further, breathing comfortably, lung sounds reveal some scattered wheezes, some rhonchi Patient has a productive cough, and he is able to bring up some brownish colored sputum. The, but chest pain, his external pacemaker still in place in the right subclavian area, clean dry and intact, covered with dressing. He's had no fever or chills, history of the DC the Precedex, and started the patient on low-dose Seroquel for episodes of restlessness, confusion, nursing staff reports episode of restlessness, confusion yesterday in the evening. During those episodes patient will try to leave. He did have a when necessary dose of although given to him. PEG tube is in place, he is receiving tube feedings in the form of TwoCal HN at 50 ML per hour, he is tolerating tube feeding very well, no abdominal pain. Remains nothing by mouth, TPN has been discontinued. Today's chest x-ray has been reviewed showing diffuse patchy bilateral infiltrates stable in appearance. Patient remains on Lasix 40 mg every 12 hours, he is on nebulized bronchodilators, he is on vancomycin, Azactam was discontinued, his bronchial lavage cultures have shown no growth. On 09/27/2020 patient seen in follow-up on selective care unit, he is resting comfortably in bed, 1 L of oxygen pulse ox 95%, reading comfortably, his been afebrile, hemodynamically is been stable, remains on antibiotics for aspiration pneumonia, currently on Eraxis only, ID service is following, vancomycin was discontinued, his labs have been reviewed, is persistent leukocytosis, white blood cell count of 18.9, hemoglobin of 11.3, sodium is 147, potassium is 4.0, chloride is 114, B1 is 53, creatinine 0.73. No growth on blood cultures or bronchoalveolar lavage On 09/28/2020 patient is seen in follow-up on selective care unit. He is awake and oriented, in no acute distress, sitting up in the recliner, currently on room air pulse ox of 93%, no fever or chills, hemodynamically stable, he is breathing comfortably, no complaints of cough or congestion, he is receiving tube feedings via the PEG tube, tolerating them well. Afebrile. He remains on vancomycin, and Eraxis. Today's chest x-ray shows some improvement in aeration. Today's labs have been reviewed, showing white blood cell, down, down to 15.8, hemoglobin is 11.1, sodium is 144, potassium is 4.7, chloride is 112, BUN is 49, creatinine 0.6, liver enzymes are improving. Objective - Vital Signs Vital signs: Vital Signs Temp 97.6 F 09/28/20 08:00 Pulse 92 09/28/20 13:28 Resp 18 09/28/20 11:17 BP 113/72 09/28/20 11:17 Pulse Ox 93 L 09/28/20 11:17 Intake & Output 09/27/20 09/28/20 09/28/20 18:59 06:59 18:59 Intake Total 405 540 360 Output Total 947 566 4327 Balance -395 -60 -840 Weight 78 kg 78 kg Intake: Tube Feeding 405 540 360 Output: Urine 775 111 0589 Other: Voiding Method Indwelling Catheter Indwelling Catheter Indwelling Catheter # Voids 0 # Bowel Movements 1 ABP, PAP, CO, CI - Last Documented Arterial Blood Pressure 71/59 - Exam GENERAL EXAM: 74-year-old white male, on room air with pulse ox of 93%, no acute distress comfortable in no apparent distress. HEAD: Normocephalic/atraumatic. EYES: Normal reaction of pupils, equal size. Conjunctiva pink, sclera white. NOSE: Clear with pink turbinates. THROAT: No erythema or exudates. NECK: No masses, no JVD, no thyroid enlargement, no adenopathy. CHEST: No chest wall deformity. Symmetrical expansion. Right subclavian area external pacemaker, patient is 100% AV paced on the monitor LUNGS: Equal air entry with scattered wheezes, with a few rhonchi CVS: Irregular rate and rhythm, normal S1 and S2, no gallops, no murmurs, no rubs ABDOMEN: Soft, nontender. No hepatosplenomegaly, normal bowel sounds, no guarding or rigidity. EXTREMITIES: No clubbing, 1+ pretibial edema and mild upper extremity edema, no cyanosis, 2+ pulses and upper and lower extremities. MUSCULOSKELETAL: Muscle strength and tone normal. SPINE: No scoliosis or deformity SKIN: No rashes CENTRAL NERVOUS SYSTEM: Alert and oriented -3. No focal deficits, tone is normal in all 4 extremities. PSYCHIATRIC: Alert and oriented -3. Appropriate affect. Intact judgment and insight. - Labs CBC & Chem 7: 09/28/20 08:03 09/28/20 08:03 Labs: Abnormal Lab Results - Last 24 Hours (Table) 09/27/20 09/28/20 09/28/20 Range/Units 17:19 00:10 05:58 WBC (3.8-10.6) k/uL RBC (4.30-5.90) m/uL Hgb (13.0-17.5) gm/dL Hct (39.0-53.0) % Plt Count (150-450) k/uL Neutrophils # (Manual) (1.3-7.7) k/uL Monocytes # (Manual) (0-1.0) k/uL Metamyelocytes # (Man) (0) k/uL Myelocytes # (Manual) (0) k/uL Chloride (98-107) mmol/L BUN (9-20) mg/dL Glucose (74-99) mg/dL POC Glucose (mg/dL) 170 H 146 H 112 H (75-99) mg/dL AST (17-59) U/L ALT (4-49) U/L Alkaline Phosphatase (38-126) U/L Lactate Dehydrogenase (313-618) U/L Total Protein (6.3-8.2) g/dL Albumin (3.5-5.0) g/dL 09/28/20 09/28/20 09/28/20 Range/Units 08:03 08:03 11:53 WBC 15.8 H (3.8-10.6) k/uL RBC 3.52 L (4.30-5.90) m/uL Hgb 11.1 L (13.0-17.5) gm/dL Hct 34.3 L (39.0-53.0) % Plt Count 567 H (150-450) k/uL Neutrophils # (Manual) 9.40 H (1.3-7.7) k/uL Monocytes # (Manual) 1.90 H (0-1.0) k/uL Metamyelocytes # (Man) 0.47 H (0) k/uL Myelocytes # (Manual) 1.90 H (0) k/uL Chloride 112 H (98-107) mmol/L BUN 49 H (9-20) mg/dL Glucose 109 H (74-99) mg/dL POC Glucose (mg/dL) 165 H (75-99) mg/dL AST 98 H (17-59) U/L ALT 245 H (4-49) U/L Alkaline Phosphatase 156 H (38-126) U/L Lactate Dehydrogenase 1191 H (313-618) U/L Total Protein 5.6 L (6.3-8.2) g/dL Albumin 2.8 L (3.5-5.0) g/dL Assessment and Plan Plan: Assessment: #1. Acute hypoxic restaurant failure secondary to aspiration pneumonia and a component of fluid overload, interstitial edema, improved #2. Acute complete heart block requiring temporary pacemaker implantation, and patient currently has a right subclavian area external temporary pacemaker with intention of replacing of the permanent pacemaker down the road #3. Severe metabolic acidosis, resolved #4. Acute kidney injury secondary to acute tubular necrosis, improving #5. Dyslipidemia #6. Hypothyroidism #7. Intermittent episodes of confusion, related to acute metabolic encephalopathy, improving currently on Seroquel and when necessary dose of Haldol #8. Dysphagia, aspiration pneumonia, patient had a PEG tube inserted on 09/24/2020, tolerating tube feedings #9. Leukocytosis, multifactorial, possibly related to oropharyngeal candidiasis no growth on the bronchoalveolar lavage, patient has received antibiotics form of Azactam, vancomycin, Diflucan. Currently just on Eraxis Plan: Patient is on room air, breathing easier, he is up in the chair, he is tolerating tube feedings, no worsening dyspnea, encourage deep breathing and coughing, will continue antibiotics per ID service recommendations, his had no fever or chills. Continue on oral diuretics. His chest x-ray shows improvement in aeration. Patient is scheduled for pacemaker surgery on Thursday. He continues to have an external temporary pacemaker in the right chest area. Cardiology is following I performed a history & physical examination of the patient and discussed their management with my nurse practitioner, Lilibeth Huitron. I reviewed the nurse practitioner's note and agree with the documented findings and plan of care. Lung sounds are positive for a few scattered rhonchi.. The findings and the impression was discussed with the patient. I attest to the documentation by the nurse practitioner. Time with Patient: Less than 30
[2020-09-28 15:53] LABS: Ferritin 980.1 ng/mL (22.0-322.0)
--- NOTE | 2020-09-28 15:55 | P.PN ---
Subjective Progress Note Date: 09/28/20 HISTORY OF PRESENT ILLNESS: Patient examined at the bedside. He denies chest pain or pressure. Denies shortness of breath. He is receiving tube feedings via PEG tube. Chest x-ray today shows some improvement in aeration compared to previous exam. PHYSICAL EXAM: VITAL SIGNS: Reviewed. GENERAL: Well-developed in no acute distress. NECK: Supple. No JVD or thyromegaly LUNGS: Respirations even and unlabored. Lungs coarse with rhonchi noted. HEART: Regular rate and rhythm. S1 and S2 heard. EXTREMITIES: Normal range of motion. No clubbing or cyanosis. Peripheral pulses intact. No lower extremity edema ASSESSMENT: 1. Third-degree heart block, status post externalized pacemaker 2. Acute hypoxemic respiratory failure with recurrent aspiration 3. Toxic metabolic encephalopathy, improved 4. Elevated troponin, likely type II mechanism from sepsis 5. Lactic acidosis, improved 6. Acute kidney injury, improved 7. History of hypertension, currently off antihypertensives 8. Aspiration, status post PEG tube placement 9. Leukocytosis, likely related to aspiration PLAN: Stop tube feedings at midnight Patient scheduled for permanent pacemaker insertion tomorrow with Dr. Rose Nurse practitioner note has been reviewed by physician. Signing provider agrees with the documented findings, assessment, and plan of care. Objective - Vital Signs Vital signs: Vital Signs Temp 97.6 F 09/28/20 08:00 Pulse 80 09/28/20 14:00 Resp 18 09/28/20 14:00 BP 113/72 09/28/20 11:17 Pulse Ox 93 L 09/28/20 11:17 Intake & Output 09/27/20 09/28/20 09/28/20 18:59 06:59 18:59 Intake Total 405 540 360 Output Total 611 601 8160 Balance - Weight 78 kg 78 kg Intake: Tube Feeding 405 540 360 Output: Urine 598 021 7392 Other: Voiding Method Indwelling Catheter Indwelling Catheter Indwelling Catheter # Voids 0 # Bowel Movements 1 ABP, PAP, CO, CI - Last Documented Arterial Blood Pressure 71/59 - Labs CBC & Chem 7: 09/28/20 08:03 09/28/20 08:03 Labs: Abnormal Lab Results - Last 24 Hours (Table) 09/27/20 09/28/20 09/28/20 Range/Units 17:19 00:10 05:58 WBC (3.8-10.6) k/uL RBC (4.30-5.90) m/uL Hgb (13.0-17.5) gm/dL Hct (39.0-53.0) % Plt Count (150-450) k/uL Neutrophils # (Manual) (1.3-7.7) k/uL Monocytes # (Manual) (0-1.0) k/uL Metamyelocytes # (Man) (0) k/uL Myelocytes # (Manual) (0) k/uL Chloride (98-107) mmol/L BUN (9-20) mg/dL Glucose (74-99) mg/dL POC Glucose (mg/dL) 170 H 146 H 112 H (75-99) mg/dL AST (17-59) U/L ALT (4-49) U/L Alkaline Phosphatase (38-126) U/L Lactate Dehydrogenase (313-618) U/L Total Protein (6.3-8.2) g/dL Albumin (3.5-5.0) g/dL 09/28/20 09/28/20 09/28/20 Range/Units 08:03 08:03 11:53 WBC 15.8 H (3.8-10.6) k/uL RBC 3.52 L (4.30-5.90) m/uL Hgb 11.1 L (13.0-17.5) gm/dL Hct 34.3 L (39.0-53.0) % Plt Count 567 H (150-450) k/uL Neutrophils # (Manual) 9.40 H (1.3-7.7) k/uL Monocytes # (Manual) 1.90 H (0-1.0) k/uL Metamyelocytes # (Man) 0.47 H (0) k/uL Myelocytes # (Manual) 1.90 H (0) k/uL Chloride 112 H (98-107) mmol/L BUN 49 H (9-20) mg/dL Glucose 109 H (74-99) mg/dL POC Glucose (mg/dL) 165 H (75-99) mg/dL AST 98 H (17-59) U/L ALT 245 H (4-49) U/L Alkaline Phosphatase 156 H (38-126) U/L Lactate Dehydrogenase 1191 H (313-618) U/L Total Protein 5.6 L (6.3-8.2) g/dL Albumin 2.8 L (3.5-5.0) g/dL
[2020-09-28 17:13] LABS: Glucose,Whole Blood 108 mg/dL (75-99)
[2020-09-28] MEDS: QUEtiapine 50 MG TAB PO SCH (20:18)
[2020-09-28] MEDS: ANIDULAFUNGIN 100 MG in SODIUM CHLORIDE 0.9% 100 ML IVPB SCH (20:18)
--- NOTE | 2020-09-28 22:31 | PN ---
PROGRESS NOTE DATE OF SERVICE: 09/28/2020 REASON FOR FOLLOWUP: Leukocytosis and a question of thrush. INTERVAL HISTORY: The patient is currently afebrile, has been breathing comfortably. Denies having any chest pain or shortness of breath. Occasional cough. No abdominal pain or diarrhea. PHYSICAL EXAMINATION: Blood pressure 118/60 with a pulse of 78, temperature 97.5. He is 93% on room air. General description is an elderly male up in the chair in no distress. RESPIRATORY SYSTEM: Unlabored breathing with decreased breath sounds at the base. No wheeze. HEART: S1, S2. Regular rate and rhythm. ABDOMEN: Soft. No tenderness. LABS: Hemoglobin 11.1, white count down to 15.8. BUN of 49, creatinine 0.66. Cultures have been negative. DIAGNOSTIC IMPRESSION AND PLAN: Patient with elevated white count, multifactorial, possibly with a component of thrush. He was on Eraxis. Vancomycin has been restarted by Cardiology. Kidney function is being monitored closely. Continue supportive care. MMODL / IJN: [id number] /
[2020-09-28 23:58] LABS: Glucose,Whole Blood 105 mg/dL (75-99)
[2020-09-29] MEDS: INSULIN ASPART (NovoLOG) 100 UNIT/ML VIAL SQ SCH ×4 (00:50→17:20)
[2020-09-29] MEDS: HEPARIN SODIUM,PORCINE 5,000 UNIT/ML 1 ML VIAL SQ SCH ×3 (00:50→16:54)
[2020-09-29] MEDS ORDERED: VANCOMYCIN 1,250 MG in SODIUM CHLORIDE 0.9% 250 ML IVPB ONE (05:00)
[2020-09-29] MEDS: PANTOPRAZOLE 40 MG TABLET PO SCH (05:56)
[2020-09-29 06:04] LABS: Glucose,Whole Blood 84 mg/dL (75-99)
[2020-09-29] MEDS ORDERED: ceFAZolin 1 GM in SODIUM CHLORIDE 0.9% 250 ML IRRIGATION PRN (07:00)
[2020-09-29] MEDS ORDERED: CLINDAMYCIN 900 MG in DEXTROSE 5% IN WATER 50 ML IVPB STA ×2 (07:06)
[2020-09-29] MEDS ORDERED: CLINDAMYCIN 600 MG in SODIUM CHLORIDE 0.9% IRRIGATIO 250 ML IRRIGATION ONE (07:06)
[2020-09-29] MEDS ORDERED: fentaNYL (PF) 50 MCG/ML 2 ML AMP ONE (07:21)
[2020-09-29] MEDS ORDERED: MIDAZOLAM 2 MG/2 ML VIAL ONE (07:21)
[2020-09-29] MEDS ORDERED: PHENYLEPHRINE 10 MG/ML VIAL ONE (07:21)
[2020-09-29] MEDS ORDERED: LIDOCAINE 1% INJ 10MG/ML (20 ML MDV) ONE (07:22)
[2020-09-29] MEDS ORDERED: IV FLUID CONTINUATION 200 ML IV ONE (07:30)
[2020-09-29] MEDS: IPRATROPIUM-ALBUTEROL 3 ML NEB INHALATION SCH ×4 (07:37→19:47)
[2020-09-29] MEDS ORDERED: LIDOCAINE 1% INJ 10MG/ML (20 ML MDV) SQ ONE ×2 (08:08→08:12)
--- NOTE | 2020-09-29 09:19 | P.PRLE ---
RE: SissyTrent Dear Dr. Bean Mr. Trent Sheehan underwent a dual-chamber pacemaker implantation for complete heart block When he was initially admitted to the hospital he had a transvenous temporary pacemaker but on account of his protracted medical problems and ICU stay I removed the template pacemaker and implanted and externalized dual-chamber pacemaker from the right axillary vein. He has now made significant recovery and today I removed the externalized pacemaker from the right side and implanted and internalized dual-chamber pacemaker from the left side. He will continue to follow with Dr. Thrasher, his inspector tool as before as well as not device clinic Thank you for entrusting me with the care of the patient Warm regards Sincerely Mejia Rose
[2020-09-29] MEDS ORDERED: ACETAMINOPHEN TAB 325 MG TAB PO PRN (09:20)
--- NOTE | 2020-09-29 09:26 | P.PCN ---
Preoperative Diagnosis: Diagnosis Complete heart block Status post externalized dual-chamber pacemaker implanted greater than one week back Procedure The dressing was removed on the right side after the internalize pacemaker was implanted The sutures were removed to free the lead from the skin Atrial lead was extracted with manual traction and hemostasis was assured The RV lead was unscrewed and then with gradual manual traction the lead was removed and hemostasis assured The site was dressed
--- NOTE | 2020-09-29 10:08 | P.PN ---
Subjective Progress Note Date: 09/29/20 Patient is doing well today. No acute events overnight He is scheduled for permanent pacemaker implantation today Objective - Vital Signs Vital signs: Vital Signs Temp 97.4 F L 09/29/20 04:05 Pulse 67 09/29/20 09:50 Resp 18 09/29/20 09:50 BP 121/57 09/29/20 09:50 Pulse Ox 95 09/29/20 09:50 Intake & Output 09/28/20 09/29/20 09/29/20 18:59 06:59 18:59 Intake Total 540 180 106 Output Total 2049 1200 Balance -1510 -1020 106 Weight 78 kg 74.5 kg Intake: IV 106 Tube Feeding 540 180 Output: Urine 2049 1200 Other: Voiding Method Indwelling Catheter Indwelling Catheter ABP, PAP, CO, CI - Last Documented Arterial Blood Pressure 71/59 - Exam General: The patient is awake and alert, in no distress Eye: there is normal conjunctiva bilaterally. Neck: The neck is supple, there is no JVD. Cardiovascular: Normal S1-S2, no S3-S4, no murmurs. Respiratory: Lungs clear to auscultation bilaterally Gastrointestinal: Abdomen is soft, nontender Musculoskeletal: There is +1 pedal edema. Neurological:. Speech is normal. Skin: Skin is warm and dry - Labs CBC & Chem 7: 09/28/20 08:03 09/28/20 08:03 Labs: Abnormal Lab Results - Last 24 Hours (Table) 09/28/20 09/28/20 09/28/20 Range/Units 08:03 08:03 08:03 Neutrophils # (Manual) 9.40 H (1.3-7.7) k/uL Monocytes # (Manual) 1.90 H (0-1.0) k/uL Metamyelocytes # (Man) 0.47 H (0) k/uL Myelocytes # (Manual) 1.90 H (0) k/uL POC Glucose (mg/dL) (75-99) mg/dL Ferritin 980.1 H (22.0-322.0) ng/mL Procalcitonin 0.10 H (0.02-0.09) ng/mL 09/28/20 09/28/20 09/28/20 Range/Units 11:53 17:10 23:56 Neutrophils # (Manual) (1.3-7.7) k/uL Monocytes # (Manual) (0-1.0) k/uL Metamyelocytes # (Man) (0) k/uL Myelocytes # (Manual) (0) k/uL POC Glucose (mg/dL) 165 H 108 H 105 H (75-99) mg/dL Ferritin (22.0-322.0) ng/mL Procalcitonin (0.02-0.09) ng/mL Assessment and Plan Assessment: This is a 74-year-old male with past medical history noted below who was brought into the emergency room after he was found unresponsive by EMS and was having a gonal breathing. Unresponsiveness, suspected secondary to bradycardia with complete heart block, now resolved Acute hypoxic respiratory failure requiring intubation and mechanical ventilation., extubated on 3 L of oxygen by nasal cannula Community-acquired pneumonia versus aspiration pneumonia: Finished 10 days course of antibiotic with aztreonam and vancomycin. Third-degree heart block -Scheduled for permanent pacemaker implantation today -Status post bronch with BAL on 09/11, cultures negative -COVID 19 PCR negative -Started on IV Solu-Medrol and now transitioned to oral prednisone as directed by pulmonology I would titrate down the dose -Infectious disease following: Recommended IV Eraxis for oral thrush. Patient is high risk of aspiration. -Echocardiogram unremarkable with LVEF 55-60% and normal LV wall thickness Chronic aspiration/moderate severe malnutrition Patient continued to aspirate on feeding trials Status post PEG tube on 09/24. tube feeding at goal Acute delirium/agitation, now resolved Started on Seroquel 50 mg at bedtime Steroid-induced hyperglycemia, improved. A1c 5.4 Continue sliding scale insulin with blood sugar checks every 6 hours. Fluid overload Improved with IV Lasix, now transitioned to oral Lasix 40 mg twice daily Hypothyroidism -Continue Synthroid Lactic acidosis, resolved Hyponatremia, hypernatremia resolved Acute kidney injury, resolved General weakness PT following DVT prophylaxis: heparin Discussed with: patient, nursing Anticipated discharge: On Thursday to [place] Anticipated discharge place: [facility]
[2020-09-29] MEDS: LEVOTHYROXINE 100 MCG TAB PO SCH (10:23)
[2020-09-29] MEDS: predniSONE 20 MG TAB PO SCH (10:23)
[2020-09-29] MEDS: FUROSEMIDE 40 MG TAB PO SCH ×2 (10:23→16:52)
[2020-09-29 10:28] LABS: Glucose,Whole Blood 74 mg/dL (75-99)
--- NOTE | 2020-09-29 10:57 | XR ---
EXAMINATION TYPE: XR chest 1V portable DATE OF EXAM: 09/29/2020 COMPARISON: Right chest x-ray 09/28/2020 HISTORY: Lead placement check TECHNIQUE: Single frontal view of the chest is obtained. FINDINGS: There is a generator in the left pectoral region, leads are present in the right atrium an d ventricle. Right-sided generator is no longer seen. There is a right-sided PICC line, distal tip at the cavoatrial junction. Bilateral patchy density within the lungs persists, interstitium is increas ed. No pneumothorax or pleural effusion. IMPRESSION: No evident complication status post asymmetric placement.
--- NOTE | 2020-09-29 11:04 | CE ---
CARDIAC ELECTROPHYSIOLOGY REPORT Trent Sheehan is a 74-year-old male patient with persistent complete heart block. The patient is brought to the EP lab in a fasting state. Written informed consent was obtained prior to the procedure. The left pectoral area had been prepped for the last 2-3 days. This was reprepped and draped as per protocol. Patient received IV vancomycin before coming to the lab. Intraoperatively, IV clindamycin was used. He has had a protracted hospital stay mostly in the ICU. Local anesthesia was instilled in the skin. A 4 cm incision was made parallel to the deltopectoral groove, about 1.5 cm medial to the deltopectoral groove and carried down to the level of the pectoralis muscle. A subfascial pocket was made. Hemostasis was assured. The left axillary vein was accessed at 2 separate points under fluoroscopy and via appropriately-sized introducer sheaths, 2 leads were positioned in the right heart. The atrial lead was a Medtronic model #4574, 45 cm in length, passive lead, serial number [id number]. This was placed in the right atrial appendage. P waves were 3.0 mV, pacing impedance 570 ohms, pacing threshold 1.5 V at 0.5 milliseconds, 10 V test negative. The RV lead was a screw-in lead. Medtronic model #5076, 58 cm in length and serial number [id number]. This was screwed in the RV septum separately using a Mond stylet. R-waves 22 mV, pacing impedance 627 ohms, pacing threshold 0.75 V at 0.5 milliseconds. 10 V test negative. Both leads were secured to the underlying pectoralis fascia using 2 nonabsorbable sutures. Pocket was irrigated with antibiotic solution. Leads connected to the generator ([employer] SDR MRI model number W3DR01 serial number are [id number]). The leads and generator were then placed in the subfascial pocket and the wound was closed in 3 layers and dressed per protocol. RESULTS: Successful dual-chamber pacemaker implantation for complete heart block. The device is programmed to DDD mode at 60-130 ppm with an AV delay of 184/210 milliseconds. MMODL / IJN: [id number] /
[2020-09-29 12:01] LABS: Glucose,Whole Blood 76 mg/dL (75-99)
[2020-09-29] MEDS: CLINDAMYCIN 900 MG in DEXTROSE 5% IN WATER 50 ML IVPB SCH ×4 (14:03→20:27)
--- NOTE | 2020-09-29 15:29 | P.PN ---
Subjective Progress Note Date: 09/29/20 Principal diagnosis: Aspiration pneumonia, third-degree heart block The patient is seen today 09/29/2020 and follow-up on the selective care unit. He is currently sitting up in bed. Awake and alert in no acute distress. He did undergo pacemaker implantation today. No worsening shortness of breath, cough or congestion. Maintaining O2 saturations in the high 90s on 2 L/m per nasal cannula. Afebrile. Tolerating PEG tube feedings. Chest x-ray reveals bilateral patchy density within the lungs, unchanged. No pneumothorax Objective - Vital Signs Vital signs: Vital Signs Temp 97.4 F L 09/29/20 11:48 Pulse 60 09/29/20 13:35 Resp 18 09/29/20 13:35 BP 92/52 09/29/20 13:35 Pulse Ox 98 09/29/20 13:35 Intake & Output 09/28/20 09/29/20 09/29/20 18:59 06:59 18:59 Intake Total 540 180 236 Output Total 2049 1200 475 Balance -1510 -1020 -239 Weight 78 kg 74.5 kg Intake: IV 186 0.9 NACL 80 Intake, IV Titration 50 Amount Clindamycin 900 mg In 50 Dextrose 5% in Water 50 ml @ 50 mls/hr IVPB Q6H [facility] Rx#:[id number] Tube Feeding 540 180 Output: Urine 2049 1200 475 Other: Voiding Method Indwelling Catheter Indwelling Catheter Indwelling Catheter ABP, PAP, CO, CI - Last Documented Arterial Blood Pressure 71/59 - Exam GENERAL EXAM: 74-year-old white male, on 2 L nasal cannula, no acute distress comfortable in no apparent distress. HEAD: Normocephalic/atraumatic. EYES: Normal reaction of pupils, equal size. Conjunctiva pink, sclera white. NOSE: Clear with pink turbinates. THROAT: No erythema or exudates. NECK: No masses, no JVD, no thyroid enlargement, no adenopathy. CHEST: Dressing to the left chest dryness intact. Symmetrical expansion. Right subclavian dressing dry and intact, patient is 100% AV paced on the monitor LUNGS: Equal air entry with scattered wheezes, with a few rhonchi CVS: Irregular rate and rhythm, normal S1 and S2, no gallops, no murmurs, no rubs ABDOMEN: Soft, nontender. No hepatosplenomegaly, normal bowel sounds, no guarding or rigidity. EXTREMITIES: Sling to the right upper extremity No clubbing, 1+ pretibial edema and mild upper extremity edema, no cyanosis, 2+ pulses and upper and lower extremities. MUSCULOSKELETAL: Muscle strength and tone normal. SPINE: No scoliosis or deformity SKIN: No rashes CENTRAL NERVOUS SYSTEM: Alert and oriented -3. No focal deficits, tone is normal in all 4 extremities. PSYCHIATRIC: Alert and oriented -3. Appropriate affect. Intact judgment and insight. - Labs CBC & Chem 7: 09/28/20 08:03 09/28/20 08:03 Labs: Abnormal Lab Results - Last 24 Hours (Table) 09/28/20 09/28/20 09/28/20 Range/Units 08:03 08:03 17:10 POC Glucose (mg/dL) 108 H (75-99) mg/dL Ferritin 980.1 H (22.0-322.0) ng/mL Procalcitonin 0.10 H (0.02-0.09) ng/mL 09/28/20 09/29/20 Range/Units 23:56 10:26 POC Glucose (mg/dL) 105 H 74 L (75-99) mg/dL Ferritin (22.0-322.0) ng/mL Procalcitonin (0.02-0.09) ng/mL Assessment and Plan Assessment: 1 Acute hypoxic restaurant failure secondary to aspiration pneumonia and a component of fluid overload, interstitial edema, improved 2 Acute complete heart block requiring temporary pacemaker implantation, and patient currently has a right subclavian area external temporary pacemaker removed today, permanent pacemaker implantation to the left subclavian. 3 Severe metabolic acidosis, resolved 4 Acute kidney injury secondary to acute tubular necrosis, improving 5 Dyslipidemia 6 Hypothyroidism 7 Intermittent episodes of confusion, related to acute metabolic encephalopathy, improving currently on Seroquel and when necessary dose of Haldol 8 Dysphagia, aspiration pneumonia, patient had a PEG tube inserted on 09/24/2020, tolerating tube feedings 9 Leukocytosis, multifactorial, possibly related to oropharyngeal candidiasis no growth on the bronchoalveolar lavage, patient has received antibiotics form of Azactam, vancomycin, Diflucan. Currently just on Eraxis Plan: The patient was seen and evaluated by Dr. Adames Currently stable from the pulmonary and critical care standpoint Continue the current treatment plan Titrate down the FiO2 as tolerated We'll continue to follow I, the cosigning physician, performed a history & physical examination of the patient. Lungs sounds with few scattered rhonchi. Maintaining good O2 saturations in the 90s on 2 L/m per nasal cannula. I discussed the assessment and plan of care with my nurse practitioner, Tessa Sandoval. I attest to the above note as dictated by her.
--- NOTE | 2020-09-29 16:34 | PN ---
PROGRESS NOTE DATE OF SERVICE: 09/29/2020 REASON FOR FOLLOWUP: Leukocytosis and oropharyngeal candidiasis. INTERVAL HISTORY: The patient is currently afebrile. Patient is breathing comfortably. The patient is status post removal of the external dual-chamber pacemaker and placement of a permanent pacemaker with the procedure completed yesterday. The patient denies having any chest pain. No shortness of breath. No nausea or vomiting. No abdominal pain or diarrhea. PHYSICAL EXAMINATION: Blood pressure 92/52 with a pulse of 68, temperature 97.4. He is 98% on 2 L nasal cannula. General description: The patient is an elderly male lying in bed in no distress. Respiratory system: Unlabored breathing. Clear to auscultation anteriorly. Heart S1, S2. Regular rate and rhythm. Abdomen: Soft, no tenderness. LABS: No new labs have been obtained today. Chest x-ray did not show any acute abnormality. DIAGNOSTIC IMPRESSION AND PLAN: Patient with elevated white count, possibly oropharyngeal candidiasis in this patient currently covered with Eraxis but the patient cannot take the Diflucan. White count will be repeated tomorrow. Monitor clinical course closely. MMODL / IJN: [id number] /
[2020-09-29 17:04] LABS: Glucose,Whole Blood 164 mg/dL (75-99)
[2020-09-29] MEDS: QUEtiapine 50 MG TAB PO SCH (20:27)
[2020-09-29] MEDS: ANIDULAFUNGIN 100 MG in SODIUM CHLORIDE 0.9% 100 ML IVPB SCH (21:55)
[2020-09-30 00:07] LABS: Glucose,Whole Blood 147 mg/dL (75-99)
[2020-09-30] MEDS: HEPARIN SODIUM,PORCINE 5,000 UNIT/ML 1 ML VIAL SQ SCH ×3 (00:24→15:37)
[2020-09-30] MEDS: INSULIN ASPART (NovoLOG) 100 UNIT/ML VIAL SQ SCH ×4 (00:24→17:27)
[2020-09-30] MEDS: CLINDAMYCIN 900 MG in DEXTROSE 5% IN WATER 50 ML IVPB SCH ×4 (02:27→09:03)
[2020-09-30 05:59] LABS: Glucose,Whole Blood 140 mg/dL (75-99)
[2020-09-30] MEDS: PANTOPRAZOLE 40 MG TABLET PO SCH (06:30)
[2020-09-30] MEDS: IPRATROPIUM-ALBUTEROL 3 ML NEB INHALATION SCH ×4 (08:04→19:44)
[2020-09-30] MEDS: LEVOTHYROXINE 100 MCG TAB PO SCH (08:57)
[2020-09-30] MEDS: predniSONE 20 MG TAB PO SCH (08:58)
[2020-09-30] MEDS: FUROSEMIDE 40 MG TAB PO SCH ×2 (08:58→15:37)
[2020-09-30 09:39] LABS: HCT 35.6 % (39.0-53.0); Hypochromasia Moderate; MCH 30.9 pg (25.0-35.0); MCV 99.5 fL (80.0-100.0); Macrocytosis Slight; Mean Platelet Volume 8.4; RBC 3.58 m/uL (4.30-5.90); RDW 14.8 % (11.5-15.5); WBC 13.3 k/uL (3.8-10.6)
--- NOTE | 2020-09-30 09:53 | P.PN ---
Subjective Progress Note Date: 09/30/20 Patient is awake and alert today. He does not have any complaints this morning. No acute events overnight reported by nursing staff. Objective - Vital Signs Vital signs: Vital Signs Temp 98.3 F 09/30/20 04:42 Pulse 64 09/30/20 08:11 Resp 18 09/30/20 04:42 BP 122/76 09/30/20 04:42 Pulse Ox 98 09/30/20 04:42 Intake & Output 09/29/20 09/30/20 09/30/20 18:59 06:59 18:59 Intake Total 566 270 540 Output Total 1175 1100 Balance -609 -830 540 Weight 75 kg Intake: IV 186 0.9 NACL 80 Intake, IV Titration 50 Amount Clindamycin 900 mg In 50 Dextrose 5% in Water 50 ml @ 50 mls/hr IVPB Q6H [facility] Rx#:[id number] Tube Feeding 270 270 540 Other 60 Output: Urine 1175 1100 Other: Voiding Method Indwelling Catheter Indwelling Catheter ABP, PAP, CO, CI - Last Documented Arterial Blood Pressure 71/59 - Exam General: The patient is awake and alert, in no distress Eye: there is normal conjunctiva bilaterally. Neck: The neck is supple, there is no JVD. Cardiovascular: Normal S1-S2, no S3-S4, no murmurs. Respiratory: Lungs clear to auscultation bilaterally Gastrointestinal: Abdomen is soft, nontender Musculoskeletal: There is +1 pedal edema. Neurological:. Speech is normal. Skin: Skin is warm and dry - Labs CBC & Chem 7: 09/28/20 08:03 09/28/20 08:03 Labs: Abnormal Lab Results - Last 24 Hours (Table) 09/29/20 09/29/20 09/30/20 Range/Units 10:26 16:59 00:06 POC Glucose (mg/dL) 74 L 164 H 147 H (75-99) mg/dL 09/30/20 Range/Units 05:57 POC Glucose (mg/dL) 140 H (75-99) mg/dL Assessment and Plan Assessment: This is a 74-year-old male with past medical history noted below who was brought into the emergency room after he was found unresponsive by EMS and was having agonal breathing. Unresponsiveness, suspected secondary to bradycardia with complete heart block, now resolved Acute hypoxic respiratory failure requiring intubation and mechanical ventilation., extubated on 2 L of oxygen by nasal cannula Community-acquired pneumonia versus aspiration pneumonia: Finished 10 days course of antibiotic with aztreonam and vancomycin. Third-degree heart block -Status post permanent pacemaker implantation on 07/30 -Status post bronch with BAL on 09/11, cultures negative -COVID 19 PCR negative -Started on IV Solu-Medrol and now transitioned to oral prednisone as directed by pulmonology I would titrate down the dose -Infectious disease following: Recommended IV Eraxis for oral thrush. -Echocardiogram unremarkable with LVEF 55-60% and normal LV wall thickness Chronic aspiration/moderate severe malnutrition Patient continued to aspirate on feeding trials Status post PEG tube on 09/24. tube feeding at goal Acute delirium/agitation, now resolved Started on Seroquel I would decrease the dose of 25 mg at bedtime Steroid-induced hyperglycemia, improved. A1c 5.4 Continue sliding scale insulin with blood sugar checks every 6 hours. Fluid overload Improved with IV Lasix, now transitioned to oral Lasix 40 mg twice daily Hypothyroidism -Continue Synthroid Lactic acidosis, resolved Hyponatremia, hypernatremia resolved Acute kidney injury, resolved General weakness PT following DVT prophylaxis: heparin Discussed with: patient, nursing Anticipated discharge: [facility]ticipated discharge [facility]: [facility]
[2020-09-30 10:00] LABS: African American GFR (CKD) >90 (>60 ml/min/1.73 sqM); Anion Gap 4 mmol/L; Blood Urea Nitrogen 40 mg/dL (9-20); Calcium 8.5 mg/dL (8.4-10.2); Carbon Dioxide 29 mmol/L (22-30); Chloride 104 mmol/L (98-107); Glucose 101 mg/dL (74-99); Non-African American GFR(CKD) 89 (>60 ml/min/1.73 sqM); Potassium 4.8 mmol/L (3.5-5.1); Sodium 137 mmol/L (137-145)
[2020-09-30 10:34] LABS: Band Neutrophils % 1 %; Eosinophils # (M) 0.13 k/uL (0-0.7); Lymphocytes # (M) 2.13 k/uL (1.0-4.8); Metamyelocytes # (M) 0.27 k/uL (0); Metamyelocytes % 2 %; Monocytes # (M) 0.67 k/uL (0-1.0); Myelocytes # (M) 2.66 k/uL (0); Myelocytes % 20 %; Neutrophils % (M) 57 %; Nucleated Red Blood Cells 0 /100 WBC (0-0); Total Cells Counted 200
[2020-09-30 10:36] LABS: Platelet Count 448 k/uL (150-450)
[2020-09-30 11:51] LABS: Glucose,Whole Blood 141 mg/dL (75-99)
--- NOTE | 2020-09-30 13:00 | P.PN ---
Subjective This is a pleasant 74-year-old male past medical history significant for hypertension. He follows in the office with Dr. Thrasher. He underwent permanent pacemaker implantation yesterday with Dr. Rose. He is seen and examined sitting up in no acute distress. He is wearing a sling on his left arm. Dressing is in place to the left anterior chest wall pacemaker insertion site. He denies symptoms of chest pain, shortness of breath, dizziness or palpitations. The site is nontender with small amount of old blood on the dressing. Blood pressure 95/54 heart rate 64 afebrile maintaining oxygen saturation on nasal cannula. Laboratory data reviewed, WBC 13.3, hemoglobin 11, platelets 448, sodium 137, potassium 4.8, creatinine 0.78. Currently maintained on Lasix 40 mg by mouth twice a day. Postprocedure chest x-ray reveals leads present in the right atrium and ventricle, bilateral patchy densities within the lungs persist with no pneumothorax or pleural effusion. GENERAL: Well-appearing, well-nourished and in no acute distress. NECK: Supple without JVD or thyromegaly. LUNGS: Breath sounds clear to auscultation bilaterally. Respiration equal and unlabored. No wheezes, rales or rhonchi. HEART: Regular rate and rhythm without murmurs, rubs or gallops. S1 and S2 heard. Dressing in place to the left anterior chest wall pacemaker insertion site with no evidence of swelling, pain or active bleeding. Sling to the left arm. EXTREMITIES: Normal range of motion, trace bilateral lower extremity nonpitting edema. No clubbing or cyanosis. Peripheral pulses intact. ASSESSMENT Complete heart block status post permanent pacemaker implantation Acute hypoxic respiratory failure with recurrent aspiration Toxic metabolic encephalopathy, improved Elevated troponin likely type II mechanism from sepsis Lactic acidosis, improved Acute kidney injury, improved History of hypertension Aspiration status post PEG tube placement Leukocytosis PLAN Clinically and hemodynamically stable from a cardiac perspective. We will follow along as needed, please call with further questions or concerns. Follow up with Dr. Thrasher in 1 week. Nurse Practitioner note has been reviewed, I agree with a documented findings and plan of care. Patient was seen and examined. Objective - Vital Signs Vital signs: Vital Signs Temp 97.6 F 09/30/20 08:00 Pulse 64 09/30/20 11:18 Resp 18 09/30/20 08:00 BP 95/54 09/30/20 08:00 Pulse Ox 98 09/30/20 08:00 Intake & Output 09/29/20 09/30/20 09/30/20 18:59 06:59 18:59 Intake Total 566 270 540 Output Total 1175 1100 Balance -609 -830 540 Weight 75 kg Intake: IV 186 0.9 NACL 80 Intake, IV Titration 50 Amount Clindamycin 900 mg In 50 Dextrose 5% in Water 50 ml @ 50 mls/hr IVPB Q6H [facility] Rx#:[id number] Tube Feeding 270 270 540 Other 60 Output: Urine 1175 1100 Other: Voiding Method Indwelling Catheter Indwelling Catheter Indwelling Catheter ABP, PAP, CO, CI - Last Documented Arterial Blood Pressure 71/59 - Labs CBC & Chem 7: 09/30/20 08:31 09/30/20 08:31 Labs: Abnormal Lab Results - Last 24 Hours (Table) 09/29/20 09/30/20 09/30/20 Range/Units 16:59 00:06 05:57 WBC (3.8-10.6) k/uL RBC (4.30-5.90) m/uL Hgb (13.0-17.5) gm/dL Hct (39.0-53.0) % Metamyelocytes # (Man) (0) k/uL Myelocytes # (Manual) (0) k/uL BUN (9-20) mg/dL Glucose (74-99) mg/dL POC Glucose (mg/dL) 164 H 147 H 140 H (75-99) mg/dL 09/30/20 09/30/20 Range/Units 08:31 08:31 WBC 13.3 H (3.8-10.6) k/uL RBC 3.58 L (4.30-5.90) m/uL Hgb 11.0 L (13.0-17.5) gm/dL Hct 35.6 L (39.0-53.0) % Metamyelocytes # (Man) 0.27 H (0) k/uL Myelocytes # (Manual) 2.66 H (0) k/uL BUN 40 H (9-20) mg/dL Glucose 101 H (74-99) mg/dL POC Glucose (mg/dL) (75-99) mg/dL
--- NOTE | 2020-09-30 15:54 | P.PN ---
Subjective Progress Note Date: 09/30/20 Principal diagnosis: Sepsis, aspiration pneumonia, third-degree heart block. The patient is seen today 09/29/2020 and follow-up on the selective care unit. He is currently sitting up in bed. Awake and alert in no acute distress. He did undergo pacemaker implantation today. No worsening shortness of breath, cough or congestion. Maintaining O2 saturations in the high 90s on 2 L/m per nasal cannula. Afebrile. Tolerating PEG tube feedings. Chest x-ray reveals bilateral patchy density within the lungs, unchanged. No pneumothorax. Progress note dated 09/30/2020. The patient seemed to be doing relatively well. He did get a permanent pacemaker placed. The patient really has no complaints today. He is on a couple liters of nasal O2. His saturation is excellent at 93-95%. He is much more awake and alert. Temperature is 97.9. Heart rate is 60, and respiratory rate is 16. White count is 13.3, hemoglobin 11 hematocrit 35.6 and platelet count is 448,000. Sodium is 137, potassium 4.8, chlorides 104, CO2 29, anion gap is 4, BUN 40, and creatinine is 0.78. Chest x-ray, from 09/29/2020, did not show any complication from recent pacemaker insertion. Objective - Vital Signs Vital signs: Vital Signs Temp 97.9 F 09/30/20 15:09 Pulse 68 09/30/20 15:16 Resp 16 09/30/20 15:16 BP 109/65 09/30/20 15:09 Pulse Ox 97 09/30/20 15:09 Intake & Output 09/29/20 09/30/20 09/30/20 18:59 06:59 18:59 Intake Total 467 886 0632 Output Total 1175 1100 Balance -609 -830 1192 Weight 75 kg Intake: IV 186 0.9 NACL 80 Intake, IV Titration 50 50 Amount Clindamycin 900 mg In 50 50 Dextrose 5% in Water 50 ml @ 50 mls/hr IVPB Q6H [facility] Rx#:[id number] Tube Feeding 270 270 902 Other 60 240 Output: Urine 1175 1100 Other: Voiding Method Indwelling Catheter Indwelling Catheter Indwelling Catheter ABP, PAP, CO, CI - Last Documented Arterial Blood Pressure 71/59 - Exam No acute distress, oriented 3. Nasal O2 at 2 L. HEENT examination is grossly unremarkable. Mucous membranes are moist. No oral lesions. Neck supple. Full range of motion. No adenopathy thyromegaly or neck vein distention. Cardiovascular examination reveals regular rhythm rate. S1-S2 normal. No S3 or S4. No discernible murmur noted. Lungs reveal few scattered rhonchi. No wheezes or crackles. Breath sounds equal bilaterally. Breath sounds are improved today. Abdomen soft bowel sounds are heard. No masses or tenderness. Extremities are intact. No cyanosis or clubbing. Mild lower extremity edema is noted. It is improved. Skin is without rash or lesion. Neurologic examination is brief but nonfocal. - Labs CBC & Chem 7: 09/30/20 08:31 09/30/20 08:31 Labs: Abnormal Lab Results - Last 24 Hours (Table) 09/29/20 09/30/20 09/30/20 Range/Units 16:59 00:06 05:57 WBC (3.8-10.6) k/uL RBC (4.30-5.90) m/uL Hgb (13.0-17.5) gm/dL Hct (39.0-53.0) % Metamyelocytes # (Man) (0) k/uL Myelocytes # (Manual) (0) k/uL BUN (9-20) mg/dL Glucose (74-99) mg/dL POC Glucose (mg/dL) 164 H 147 H 140 H (75-99) mg/dL 09/30/20 09/30/20 09/30/20 Range/Units 08:31 08:31 11:43 WBC 13.3 H (3.8-10.6) k/uL RBC 3.58 L (4.30-5.90) m/uL Hgb 11.0 L (13.0-17.5) gm/dL Hct 35.6 L (39.0-53.0) % Metamyelocytes # (Man) 0.27 H (0) k/uL Myelocytes # (Manual) 2.66 H (0) k/uL BUN 40 H (9-20) mg/dL Glucose 101 H (74-99) mg/dL POC Glucose (mg/dL) 141 H (75-99) mg/dL Assessment and Plan Assessment: 1 Acute hypoxic restaurant failure secondary to aspiration pneumonia and a component of fluid overload, interstitial edema, improved 2 Acute complete heart block requiring temporary pacemaker implantation, and patient currently has a right subclavian area external temporary pacemaker removed today, permanent pacemaker implantation to the left subclavian. 3 Severe metabolic acidosis, resolved 4 Acute kidney injury secondary to acute tubular necrosis, improving 5 Dyslipidemia 6 Hypothyroidism 7 Intermittent episodes of confusion, related to acute metabolic encephalopathy, improving currently on Seroquel and when necessary dose of Haldol 8 Dysphagia, aspiration pneumonia, patient had a PEG tube inserted on 09/24/2020, tolerating tube feedings 9 Leukocytosis, multifactorial, possibly related to oropharyngeal candidiasis no growth on the bronchoalveolar lavage, patient has received antibiotics form of Azactam, vancomycin, Diflucan. Currently just on Eraxis Plan: Plan dated 09/30/2020. The patient appears to be stable from the pulmonary standpoint. No apparent com plication of permanent pacemaker placement. Chest x-ray from September 29 does not show pneumothorax. Clinically, the patient's respiratory status is improved. The patient's on 2 L nasal cannula. Blood pressure and heart rate are stable. We will continue to follow. Labs are reviewed. Antibiotics as per infectious diseases. Time with Patient: Less than 30
[2020-09-30 16:53] LABS: Glucose,Whole Blood 176 mg/dL (75-99)
[2020-09-30] MEDS: QUEtiapine 25 MG TAB PO SCH (20:16)
[2020-09-30] MEDS: ANIDULAFUNGIN 100 MG in SODIUM CHLORIDE 0.9% 100 ML IVPB SCH (20:16)
--- NOTE | 2020-09-30 21:24 | PN ---
PROGRESS NOTE DATE OF SERVICE: 09/30/2020 REASON FOR FOLLOWUP: Leukocytosis, oral thrush. INTERVAL HISTORY: Patient is currently afebrile, has been breathing comfortably. He is more awake and alert. Denies any difficulty swallowing. No chest pain, shortness of breath. Occasional cough. No abdominal pain or diarrhea. PHYSICAL EXAMINATION: Blood pressure is 109/65 with a pulse of 68. Temperature 96.9. He is 97% on 2 L nasal cannula. General description is an elderly male up in the chair in no distress. HEENT examination shows oral thrush improved. Lungs unlabored breathing, decreased breath sounds in the bases. No wheeze. HEART: S1, S2. Regular. ABDOMEN: Soft, no tenderness. LABS: Hemoglobin is 11.9, white count 13.3, BUN of 14, creatinine 0.78. DIAGNOSTIC IMPRESSION AND PLAN: Patient with leukocytosis, multifactorial, possible oral thrush. The patient is currently on Eraxis that can be transitioned to Nystatin swish and spit for a week on discharge, to avoid any use for IV. Followed in the outpatient setting. Continue supportive care. MMODL / IJN: [id number] /
[2020-10-01 00:01] LABS: Glucose,Whole Blood 128 mg/dL (75-99)
[2020-10-01] MEDS: HEPARIN SODIUM,PORCINE 5,000 UNIT/ML 1 ML VIAL SQ SCH ×4 (00:14→23:35)
[2020-10-01] MEDS: INSULIN ASPART (NovoLOG) 100 UNIT/ML VIAL SQ SCH ×4 (00:16→18:18)
[2020-10-01 06:18] LABS: Glucose,Whole Blood 106 mg/dL (75-99)
[2020-10-01] MEDS: PANTOPRAZOLE 40 MG TABLET PO SCH (06:30)
[2020-10-01 07:29] LABS: HCT 39.8 % (39.0-53.0); HGB 12.8 gm/dL (13.0-17.5); MCHC 32.1 g/dL (31.0-37.0); MCV 96.7 fL (80.0-100.0); Mean Platelet Volume 8.3; Platelet Count 423 k/uL (150-450); RBC 4.11 m/uL (4.30-5.90); RDW 14.6 % (11.5-15.5); WBC 17.6 k/uL (3.8-10.6)
[2020-10-01 07:44] LABS: African American GFR (CKD) >90 (>60 ml/min/1.73 sqM); Anion Gap 6 mmol/L; Blood Urea Nitrogen 39 mg/dL (9-20); Carbon Dioxide 28 mmol/L (22-30); Chloride 97 mmol/L (98-107); Glucose 121 mg/dL (74-99); Non-African American GFR(CKD) >90 (>60 ml/min/1.73 sqM); Sodium 131 mmol/L (137-145)
[2020-10-01] MEDS: IPRATROPIUM-ALBUTEROL 3 ML NEB INHALATION SCH ×4 (08:35→19:11)
[2020-10-01 09:08] LABS: Band Neutrophils % 2 %; Eosinophils # (M) 0.18 k/uL (0-0.7); Lymphocytes # (M) 2.99 k/uL (1.0-4.8); Metamyelocytes # (M) 0.18 k/uL (0); Metamyelocytes % 1 %; Myelocytes # (M) 1.76 k/uL (0); Myelocytes % 10 %; Neutrophils % (M) 66 %; Nucleated Red Blood Cells 0 /100 WBC (0-0); Total Cells Counted 200
[2020-10-01 09:09] LABS: Poikilocytosis (M) Present
[2020-10-01] MEDS: predniSONE 20 MG TAB PO SCH (09:13)
[2020-10-01] MEDS: LEVOTHYROXINE 100 MCG TAB PO SCH (09:13)
[2020-10-01] MEDS: FUROSEMIDE 40 MG TAB PO SCH ×2 (09:13→16:53)
[2020-10-01 11:05] VITALS: BMI 23.7
--- NOTE | 2020-10-01 12:03 | P.PN ---
Subjective Progress Note Date: 10/01/20 CHIEF COMPLAINT: Aspiration pneumonia, third-degree AV block HISTORY OF PRESENT ILLNESS: Patient is status post PEG tube placement with Dr. Dunbar. Patient is tolerating tube feeds. He is at goal at 45 mL per hour. No residual reported. Afebrile. WBC 17.6 Patient is scheduled to be discharged to [facility] later today PHYSICAL EXAM: VITAL SIGNS: Reviewed. GENERAL: Well-developed in no acute distress. HEENT: No sclera icterus. Extraocular movements grossly intact. Moist buccal mucosa. Head is atraumatic, normocephalic. ABDOMEN: Soft. Nondistended. Nontender. PEG tube site clean dry and intact NEUROLOGIC: Alert and oriented. Cranial nerves II through XII grossly intact. ASSESSMENT: 1. Dysphagia, aspiration pneumonia and Severe protein calorie malnutrition status post PEG tube placement PLAN: -Continue PEG tube feedings. Patient at goal -Continue supportive care Physician Core Drier note has been reviewed by physician. Signing provider agrees with the documented findings, assessment, and plan of care. Objective - Vital Signs Vital signs: Vital Signs Temp 97.9 F 10/01/20 04:00 Pulse 72 10/01/20 11:51 Resp 16 10/01/20 11:51 BP 107/52 10/01/20 04:00 Pulse Ox 95 10/01/20 04:00 Intake & Output 09/30/20 10/01/20 10/01/20 18:59 06:59 18:59 Intake Total 1192 0 100 Output Total 400 1325 350 Balance 792 -1325 -250 Weight 75 kg 75 kg Intake: Intake, IV Titration 50 100 Amount Anidulafungin 100 mg In 100 Sodium Chloride 0.9% 100 ml @ 84 mls/hr IVPB [facility] Rx#:[id number] Clindamycin 900 mg In 50 Dextrose 5% in Water 50 ml @ 50 mls/hr IVPB Q6H [facility] Rx#:[id number] Oral 0 0 Tube Feeding 902 Other 240 Output: Urine 400 1325 350 Other: Voiding Method Indwelling Catheter Indwelling Catheter # Bowel Movements 1 ABP, PAP, CO, CI - Last Documented Arterial Blood Pressure 71/59 - Labs CBC & Chem 7: 10/01/20 06:42 10/01/20 06:42 Labs: Abnormal Lab Results - Last 24 Hours (Table) 01/09/30/20 10/01/20 Range/Units 16:51 23:59 06:13 WBC (3.8-10.6) k/uL RBC (4.30-5.90) m/uL Hgb (13.0-17.5) gm/dL Neutrophils # (Manual) (1.3-7.7) k/uL Metamyelocytes # (Man) (0) k/uL Myelocytes # (Manual) (0) k/uL Sodium (137-145) mmol/L Chloride (98-107) mmol/L BUN (9-20) mg/dL Glucose (74-99) mg/dL POC Glucose (mg/dL) 176 H 128 H 106 H (75-99) mg/dL 10/01/20 10/01/20 Range/Units 06:42 06:42 WBC 17.6 H (3.8-10.6) k/uL RBC 4.11 L (4.30-5.90) m/uL Hgb 12.8 L (13.0-17.5) gm/dL Neutrophils # (Manual) 11.90 H (1.3-7.7) k/uL Metamyelocytes # (Man) 0.18 H (0) k/uL Myelocytes # (Manual) 1.76 H (0) k/uL Sodium 131 L (137-145) mmol/L Chloride 97 L (98-107) mmol/L BUN 39 H (9-20) mg/dL Glucose 121 H (74-99) mg/dL POC Glucose (mg/dL) (75-99) mg/dL Microbiology - Last 24 Hours (Table) 09/11/20 09:16 Fungal Culture - Preliminary Bronchoalviolar Lavage - Right
[2020-10-01 12:04] LABS: Glucose,Whole Blood 129 mg/dL (75-99)
--- NOTE | 2020-10-01 13:32 | PN ---
PROGRESS NOTE DATE OF SERVICE: 10/01/2020 REASON FOR FOLLOWUP: Leukocytosis and thrush. INTERVAL HISTORY: The patient is currently afebrile. Patient is feeling better. Breathing comfortably. No chest pain. Occasional cough. No abdominal pain or diarrhea. PHYSICAL EXAMINATION: Blood pressure 121/55 pulse with 70, temperature 97.3. He is 95% on room air. General description is elderly male up in the chair in no distress. HEENT EXAMINATION: Oral thrush improved. LUNGS: Unlabored breathing, decreased breath sounds at the bases. No wheeze. HEART: S1, S2. Regular rate and rhythm. ABDOMEN: Soft, no tenderness. LABS: Hemoglobin 12.8, white count 17.6, BUN of 39, creatinine 0.74. DIAGNOSTIC IMPRESSION AND PLAN: Patient with elevated white count, multifactorial, possibly oral thrush covered with Eraxis transitioned to nystatin swish and spit for a week on discharge. White count did show slight worsening and will continue to monitor closely. Continue supportive care. MMODL / IJN: [id number] /
--- NOTE | 2020-10-01 13:44 | P.DS ---
Providers Date of admission: 09/08/20 13:22 Expected date of discharge: 10/01/20 Attending physician: Himanshu Cruz MD Consults: 09/08/20 13:26 Consult Physician Urgent Consulting Provider: Krystian Lackey Consult Reason/Comments: metabolic acidosis Do you want consulting provider notified?: Yes 09/08/20 13:30 Consult Physician Urgent Consulting Provider: Navin Adames Consult Reason/Comments: hypoxia Do you want consulting provider notified?: Yes 09/08/20 13:39 Consult Physician Urgent Consulting Provider: Alexander Fajardo Consult Reason/Comments: elevated troponin Do you want consulting provider notified?: Yes 09/09/20 10:28 Consult Physician Urgent Consulting Provider: Rachelle Hunt Consult Reason/Comments: Sepsis Do you want consulting provider notified?: Yes 09/21/20 08:50 Consult Physician Routine Consulting Provider: Shaw Dunbar Consult Reason/Comments: PEG tube Do you want consulting provider notified?: Yes Primary care physician: [facility] Course: This is a 74-year-old male with past medical history noted below who was brought into the emergency room after he was found unresponsive by EMS and was having agonal breathing. Unresponsiveness, suspected secondary to bradycardia with complete heart block, now resolved Third-degree heart block Acute hypoxic respiratory failure requiring intubation and mechanical ventilation., extubated on 2 L of oxygen by nasal cannula Community-acquired pneumonia versus aspiration pneumonia: Finished 10 days course of antibiotic with aztreonam and vancomycin. -Status post permanent pacemaker implantation on 07/30 -Status post bronch with BAL on 09/11, cultures negative -COVID 19 PCR negative -Started on IV Solu-Medrol and now transitioned to oral prednisone as directed by pulmonology I would titrate down the dose. -Infectious disease following: Recommended IV Eraxis for oral thrush. -Echocardiogram unremarkable with LVEF 55-60% and normal LV wall thickness Chronic aspiration/moderate severe malnutrition Patient continued to aspirate on feeding trials Status post PEG tube on 09/24. tube feeding at goal Acute delirium/agitation, now resolved Seroquel dose was weaned off Steroid-induced hyperglycemia, improved. A1c 5.4 Continue sliding scale insulin with blood sugar checks every 6 hours. Fluid overload Improved with IV Lasix, now transitioned to oral Lasix 40 mg twice daily Hypothyroidism -Continue Synthroid Lactic acidosis, resolved Hyponatremia, hypernatremia resolved Acute kidney injury, resolved Physical debility: Seen and evaluated by PT/OT. Plan for subacute rehab Plan: 1. Continue prednisone 10 mg daily for 3 more days 2. Nystatin swish and spit for 5 days (patient is not supposed to swallow even high risk of aspiration) 3. Continue physical therapy 4. Patient passed voiding trial prior to discharge. Continue bladder scan every shift for the next couple of days to assure no retention 5. Follow-up with cardiology in the office as directed Patient Condition at Discharge: Stable Plan - Discharge Summary Discharge Rx Participant: No New Discharge Prescriptions: New Ipratropium-Albuterol Nebulize [Duoneb 0.5 mg-3 mg/3 ml Soln] 3 ml INHALATION RT-QID PRN #3 ml PRN Reason: Shortness Of Breath Furosemide [Lasix] 40 mg PO BID@0900,1600 tab Nystatin 100,000 Unit/ml Susp [Mycostatin Oral Susp] 5 ml PO QID 5 Days #5 ml predniSONE 10 mg PO DAILY #3 tab Pantoprazole [Protonix] 40 mg PO AC-BRKFST tablet. Levothyroxine Sodium [Synthroid] 100 mcg PO DAILY@0800 tab Melatonin 5 mg PO HS #30 tablet Discontinued Spironolactone 100 mg PO DAILY Levothyroxine Sodium [Synthroid] 112 mcg PO DAILY Zinc 50 mg PO DAILY Discharge Medication List Furosemide [Lasix] 40 mg PO BID@0900,1600 tab 10/01/20 [Rx] Ipratropium-Albuterol Nebulize [Duoneb 0.5 mg-3 mg/3 ml Soln] 3 ml INHALATION RT-QID PRN #3 ml 10/01/20 [Rx] Levothyroxine Sodium [Synthroid] 100 mcg PO DAILY@0800 tab 10/01/20 [Rx] Melatonin 5 mg PO HS #30 tablet 10/01/20 [Rx] Nystatin 100,000 Unit/ml Susp [Mycostatin Oral Susp] 5 ml PO QID 5 Days #5 ml 10/01/20 [Rx] Pantoprazole [Protonix] 40 mg PO AC-BRKFST tablet. 10/01/20 [Rx] predniSONE 10 mg PO DAILY #3 tab 10/01/20 [Rx] Follow up Appointment(s)/Referral(s): [facility] [NON-STAFF] - Mouna Thrasher MD [STAFF PHYSICIAN] - 1 Week Nonstaff,Physician [REFERRING] - 1-2 days Discharge Disposition: TRANSFER TO SNF/ECF
--- NOTE | 2020-10-01 14:55 | P.PN ---
Subjective Progress Note Date: 10/01/20 Principal diagnosis: Aspiration pneumonia, third-degree AV block On 09/24/2020 patient seen in follow-up in the intensive care unit, patient was admitted on 09/08/2020 with a diagnosis of aspiration pneumonia, sepsis, third- degree AV block. He was started on antibiotics, he required intubation and placement on mechanical ventilator on 09/08/2020 and was successfully weaned and extubated from mechanical ventilator on 09/13/2020. Patient remains in the third-degree AV block, external right subclavian pacemaker was placed the intention of replacing it with the permanent pacemaker down the road once the patient completely requires from his pneumonia. He seen in follow-up today on the 09/24/2020 in the intensive care unit, he is awake and alert, his FiO2 is currently down to 5 L, his breathing comfortably, denies any acute distress, no altered mentation, he is answering questions appropriately, remains on Precedex at 0.2 mics per kilo per minute, 0.9 at 20 ML per hour, TPN at 75 ML per hour, and lipids. Patient has been nothing by mouth in view of his aspiration, and surgical consultation was placed and today patient will be taken to the or for placement of a PEG tube. His vital signs have been stable, his been afebrile, he is not on any vasopressor support. His chest x-ray has been reviewed showing interstitial edema, low lung volumes, and patchy densities at the lung bases. She remains on IV Lasix at 40 mg every 12 hours, and antibiotic coverage in the form of Azactam, and vancomycin. Patient is also on IV steroids at 40 mg every 12 hours. He is status post bronchoscopy with bronchoalveolar lavage, and his BAL cultures have been negative. Today's labs have been reviewed, with blood cell count is trending down, down to 15.5 on today's labs, hemoglobin is 11.3, sodium is 143, potassium 3.8, chloride is 111, CO2 is 26, UN is 40 creatinine 0.59. Patient is an +684 mL fluid balance over the last 24 hours. His not appear to be in any acute distress. On 09/25/2020 patient seen in follow-up in the intensive care unit, he is awake and alert, oriented 3, seems to be very comfortable, no acute distress, no dyspnea, complaints of chest pain, patient does have occasional cough, nonproductive, without significant congestion. His cough is nice and strong, patient has been nothing by mouth, he received a PEG tube yesterday in the operating room, tolerated procedure well, he is anticipated to be started on enteral feedings today, he remains on TPN in the meantime at 75 ML per hour, and lipids every 12 hours. In point and was seen at a rate of KVO, his external temporary pacemaker is in place, security is right chest wall, and patient is 100% paced on the monitor, he remains on low dose Precedex which we will discontinue today, no confusion or agitation noted, will DC the Precedex, we'll add small dose oral Seroquel 25 mg twice daily, no acute events overnight. Today's labs have been reviewed, showing white blood cell, beaching 0.7, hemoglobin of 11.7, sodium is 142, potassium is 4.4, chloride is 108, BUN is 40 creatinine 0.61. Patient remains on bronchodilators, IV steroids Solu-Medrol 40 mg every 12 hours, and Azactam and vancomycin, ID service is following, no growth noted on his blood sputum or BAL cultures On 02/24/2021 patient seen in follow-up in the intensive care unit, he is resting comfortably in bed, currently 5 L of oxygen his pulse ox is 97%, can probably wean his FiO2 down further, breathing comfortably, lung sounds reveal some scattered wheezes, some rhonchi Patient has a productive cough, and he is able to bring up some brownish colored sputum. The, but chest pain, his external pacemaker still in place in the right subclavian area, clean dry and intact, covered with dressing. He's had no fever or chills, history of the DC the Precedex, and started the patient on low-dose Seroquel for episodes of restlessness, confusion, nursing staff reports episode of restlessness, confusion yesterday in the evening. During those episodes patient will try to leave. He did have a when necessary dose of although given to him. PEG tube is in place, he is receiving tube feedings in the form of TwoCal HN at 50 ML per hour, he is tolerating tube feeding very well, no abdominal pain. Remains nothing by mouth, TPN has been discontinued. Today's chest x-ray has been reviewed showing diffuse patchy bilateral infiltrates stable in appearance. Patient remains on Lasix 40 mg every 12 hours, he is on nebulized bronchodilators, he is on vancomycin, Azactam was discontinued, his bronchial lavage cultures have shown no growth. On 09/27/2020 patient seen in follow-up on selective care unit, he is resting comfortably in bed, 1 L of oxygen pulse ox 95%, reading comfortably, his been afebrile, hemodynamically is been stable, remains on antibiotics for aspiration pneumonia, currently on Eraxis only, ID service is following, vancomycin was discontinued, his labs have been reviewed, is persistent leukocytosis, white blood cell count of 18.9, hemoglobin of 11.3, sodium is 147, potassium is 4.0, chloride is 114, B1 is 53, creatinine 0.73. No growth on blood cultures or bronchoalveolar lavage On 09/28/2020 patient is seen in follow-up on selective care unit. He is awake and oriented, in no acute distress, sitting up in the recliner, currently on room air pulse ox of 93%, no fever or chills, hemodynamically stable, he is breathing comfortably, no complaints of cough or congestion, he is receiving tube feedings via the PEG tube, tolerating them well. Afebrile. He remains on vancomycin, and Eraxis. Today's chest x-ray shows some improvement in aeration. Today's labs have been reviewed, showing white blood cell, down, down to 15.8, hemoglobin is 11.1, sodium is 144, potassium is 4.7, chloride is 112, BUN is 49, creatinine 0.6, liver enzymes are improving. On 10/01/2020 patient seen in follow-up on selective care unit, he is, comfortable, seen sitting up in the recliner, in no acute distress, room air pulse ox is 95%, patient has been afebrile, denies any worsening dyspnea, lung sounds reveal diminished breath sounds at the bases, no rhonchi or wheezing, he is status post permanent pacemaker implantation on 09/29/2020. No complaints of chest pain. His breathing comfortably, no altered mentation, has had no fever or chills. His microbiology data has all been negative including blood sputum and BAL cultures. He is tolerating his tube feedings Objective - Vital Signs Vital signs: Vital Signs Temp 97.7 F 10/01/20 12:00 Pulse 61 10/01/20 12:00 Resp 16 10/01/20 13:20 BP 108/67 10/01/20 12:00 Pulse Ox 95 10/01/20 12:00 Intake & Output 09/30/20 10/01/20 10/01/20 18:59 06:59 18:59 Intake Total 1192 0 104 Output Total 400 1325 1150 Balance 792 -1325 -1046 Weight 75 kg 75 kg Intake: Intake, IV Titration 50 100 Amount Anidulafungin 100 mg In 100 Sodium Chloride 0.9% 100 ml @ 84 mls/hr IVPB HS [facility] Rx#:[id number] Clindamycin 900 mg In 50 Dextrose 5% in Water 50 ml @ 50 mls/hr IVPB Q6H [facility] Rx#:[id number] Oral 0 0 Tube Feeding 902 4 Other 240 Output: Urine 400 1325 1150 Uretheral (Bae) 800 Other: Voiding Method Indwelling Catheter Indwelling Catheter Indwelling Catheter # Bowel Movements 1 ABP, PAP, CO, CI - Last Documented Arterial Blood Pressure 71/59 - Exam GENERAL EXAM: 74-year-old white male, on room air with pulse ox of 95%, no acute distress comfortable in no apparent distress. HEAD: Normocephalic/atraumatic. EYES: Normal reaction of pupils, equal size. Conjunctiva pink, sclera white. NOSE: Clear with pink turbinates. THROAT: No erythema or exudates. NECK: No masses, no JVD, no thyroid enlargement, no adenopathy. CHEST: No chest wall deformity. Symmetrical expansion. Right subclavian area external pacemaker, patient is 100% AV paced on the monitor LUNGS: Equal air entry with scattered wheezes, with a few rhonchi CVS: Irregular rate and rhythm, normal S1 and S2, no gallops, no murmurs, no rubs ABDOMEN: Soft, nontender. No hepatosplenomegaly, normal bowel sounds, no guarding or rigidity. EXTREMITIES: No clubbing, 1+ pretibial edema and mild upper extremity edema, no cyanosis, 2+ pulses and upper and lower extremities. MUSCULOSKELETAL: Muscle strength and tone normal. SPINE: No scoliosis or deformity SKIN: No rashes CENTRAL NERVOUS SYSTEM: Alert and oriented -3. No focal deficits, tone is normal in all 4 extremities. PSYCHIATRIC: Alert and oriented -3. Appropriate affect. Intact judgment and insight. - Labs CBC & Chem 7: 10/01/20 06:42 10/01/20 06:42 Labs: Abnormal Lab Results - Last 24 Hours (Table) 09/30/20 09/30/20 10/01/20 Range/Units 16:51 23:59 06:13 WBC (3.8-10.6) k/uL RBC (4.30-5.90) m/uL Hgb (13.0-17.5) gm/dL Neutrophils # (Manual) (1.3-7.7) k/uL Metamyelocytes # (Man) (0) k/uL Myelocytes # (Manual) (0) k/uL Sodium (137-145) mmol/L Chloride (98-107) mmol/L BUN (9-20) mg/dL Glucose (74-99) mg/dL POC Glucose (mg/dL) 176 H 128 H 106 H (75-99) mg/dL 10/01/20 10/01/20 10/01/20 Range/Units 06:42 06:42 12:02 WBC 17.6 H (3.8-10.6) k/uL RBC 4.11 L (4.30-5.90) m/uL Hgb 12.8 L (13.0-17.5) gm/dL Neutrophils # (Manual) 11.90 H (1.3-7.7) k/uL Metamyelocytes # (Man) 0.18 H (0) k/uL Myelocytes # (Manual) 1.76 H (0) k/uL Sodium 131 L (137-145) mmol/L Chloride 97 L (98-107) mmol/L BUN 39 H (9-20) mg/dL Glucose 121 H (74-99) mg/dL POC Glucose (mg/dL) 129 H (75-99) mg/dL Microbiology - Last 24 Hours (Table) 09/11/20 09:16 Fungal Culture - Preliminary Bronchoalviolar Lavage - Right Assessment and Plan Plan: Assessment: #1. Acute hypoxic restaurant failure secondary to aspiration pneumonia and a component of fluid overload, interstitial edema, improved #2. Acute complete heart block requiring temporary pacemaker implantation, and status post permanent pacemaker implantation on 09/29/2020 #3. Severe metabolic acidosis, resolved #4. Acute kidney injury secondary to acute tubular necrosis, improving #5. Dyslipidemia #6. Hypothyroidism #7. Intermittent episodes of confusion, related to acute metabolic encephalopat hy, improving #8. Dysphagia, aspiration pneumonia, patient had a PEG tube inserted on 09/24/2020, tolerating tube feedings #9. Leukocytosis, multifactorial, possibly related to oropharyngeal candidiasis no growth on the bronchoalveolar lavage, patient has received antibiotics form of Azactam, vancomycin, Diflucan. Currently just on Eraxis Plan: Patient is doing well, no acute events overnight, patient is on room air, in no acute distress, no fever or chills, discharge is in progress to ECF. Continue diuretics, Lasix per ID service recommendations. I performed a history & physical examination of the patient and discussed their management with my nurse practitioner, Lilibeth Huitron. I reviewed the nurse practitioner's note and agree with the documented findings and plan of care. L gwen sounds are positive for a few scattered rhonchi.. The findings and the impression was discussed with the patient. I attest to the documentation by the nurse practitioner. Time with Patient: Less than 30
[2020-10-01 17:57] LABS: Glucose,Whole Blood 145 mg/dL (75-99)
[2020-10-01] MEDS: ANIDULAFUNGIN 100 MG in SODIUM CHLORIDE 0.9% 100 ML IVPB SCH (20:46)
[2020-10-01] MEDS: QUEtiapine 25 MG TAB PO SCH (20:46)
[2020-10-02 00:04] LABS: Glucose,Whole Blood 146 mg/dL (75-99)
[2020-10-02] MEDS: INSULIN ASPART (NovoLOG) 100 UNIT/ML VIAL SQ SCH ×2 (00:14→06:16)
[2020-10-02 05:00] LABS: HCT 37.1 % (39.0-53.0); HGB 12.3 gm/dL (13.0-17.5); MCH 31.4 pg (25.0-35.0); MCHC 33.3 g/dL (31.0-37.0); MCV 94.3 fL (80.0-100.0); Mean Platelet Volume 8.4; Platelet Count 429 k/uL (150-450); RBC 3.93 m/uL (4.30-5.90); RDW 14.8 % (11.5-15.5); WBC 22.9 k/uL (3.8-10.6)
[2020-10-02 05:11] LABS: African American GFR (CKD) >90 (>60 ml/min/1.73 sqM); Anion Gap 6 mmol/L; Blood Urea Nitrogen 43 mg/dL (9-20); Calcium 9.2 mg/dL (8.4-10.2); Carbon Dioxide 32 mmol/L (22-30); Chloride 94 mmol/L (98-107); Glucose 128 mg/dL (74-99); Non-African American GFR(CKD) 87 (>60 ml/min/1.73 sqM); Potassium 4.7 mmol/L (3.5-5.1); Sodium 132 mmol/L (137-145)
[2020-10-02 05:19] VITALS: BP 116/69; RESP 16; TEMP 97.4
[2020-10-02 05:29] LABS: Band Neutrophils % 5 %; Large Platelets Present; Lymphocytes # (M) 2.52 k/uL (1.0-4.8); Metamyelocytes # (M) 3.44 k/uL (0); Metamyelocytes % 15 %; Monocytes # (M) 1.37 k/uL (0-1.0); Myelocytes # (M) 1.15 k/uL (0); Myelocytes % 5 %; Neutrophils % (M) 58 %; Nucleated Red Blood Cells 0 /100 WBC (0-0); Total Cells Counted 100
[2020-10-02 06:15] LABS: Glucose,Whole Blood 94 mg/dL (75-99)
[2020-10-02] MEDS: IPRATROPIUM-ALBUTEROL 3 ML NEB INHALATION SCH ×2 (07:06→10:58)
[2020-10-02 07:10] VITALS: PULSE 72
[2020-10-02] MEDS: PANTOPRAZOLE 40 MG TABLET PO SCH (07:52)
[2020-10-02] MEDS: LEVOTHYROXINE 100 MCG TAB PO SCH (07:52)
[2020-10-02] MEDS: HEPARIN SODIUM,PORCINE 5,000 UNIT/ML 1 ML VIAL SQ SCH (07:53)
[2020-10-02] MEDS: FUROSEMIDE 40 MG TAB PO SCH (07:53)
[2020-10-02] MEDS: predniSONE 20 MG TAB PO SCH (07:53)
[2020-10-02] MEDS ORDERED: predniSONE 10 MG TAB PO SCH (09:00)
--- NOTE | 2020-10-02 10:09 | P.PN ---
Progress Note - Text Progress Note Date: 10/02/20 Patient discharge was delayed yesterday secondary to insurance paperwork. He is doing fairly well today. He does not have any complaints. No events overnight reported by nursing staff. Post void residual within acceptable range. For further details about this hospitalization please refer to my discharge summary dated 10/01/2020.
[2020-10-02 11:19] LABS: Glucose,Whole Blood 122 mg/dL (75-99)
--- NOTE | 2020-10-02 11:19 | P.PN ---
Subjective Progress Note Date: 10/02/20 CHIEF COMPLAINT: Aspiration pneumonia, third-degree AV block HISTORY OF PRESENT ILLNESS: Patient is status post PEG tube placement with Dr. Dunbar. Patient is tolerating tube feeds. He is at goal at 45 mL per hour. No residual reported. Afebrile. Patient is scheduled to be discharged to [facility] later today PHYSICAL EXAM: VITAL SIGNS: Reviewed. GENERAL: Well-developed in no acute distress. HEENT: No sclera icterus. Extraocular movements grossly intact. Moist buccal mucosa. Head is atraumatic, normocephalic. ABDOMEN: Soft. Nondistended. Nontender. PEG tube site clean dry and intact NEUROLOGIC: Alert and oriented. Cranial nerves II through XII grossly intact. ASSESSMENT: 1. Dysphagia, aspiration pneumonia and Severe protein calorie malnutrition status post PEG tube placement PLAN: -Continue PEG tube feedings. Patient at goal -Continue supportive care Physician Slip Cover Seamstress note has been reviewed by physician. Signing provider agrees with the documented findings, assessment, and plan of care. Objective - Vital Signs Vital signs: Vital Signs Temp 97.4 F L 10/02/20 05:00 Pulse 72 10/02/20 11:11 Resp 16 10/02/20 05:00 BP 116/69 10/02/20 05:00 Pulse Ox 94 L 10/02/20 05:00 Intake & Output 10/01/20 10/02/20 10/02/20 18:59 06:59 18:59 Intake Total 104 80 Output Total 2250 300 375 Balance -2146 -220 -375 Weight 75 kg Intake: IV 80 0.9 NACL 80 Intake, IV Titration 100 Amount Anidulafungin 100 mg In 100 Sodium Chloride 0.9% 100 ml @ 84 mls/hr IVPB [facility] Rx#:[id number] Oral 0 Tube Feeding 4 Output: Urine 2250 300 375 Uretheral (Bae) 800 Other: Voiding Method Indwelling Catheter Urinal # Voids 2 ABP, PAP, CO, CI - Last Documented Arterial Blood Pressure 71/59 - Labs CBC & Chem 7: 10/02/20 04:31 10/02/20 04:31 Labs: Abnormal Lab Results - Last 24 Hours (Table) 10/01/20 10/01/20 10/02/20 Range/Units 12:02 17:56 00:03 WBC (3.8-10.6) k/uL RBC (4.30-5.90) m/uL Hgb (13.0-17.5) gm/dL Hct (39.0-53.0) % Neutrophils # (Manual) (1.3-7.7) k/uL Monocytes # (Manual) (0-1.0) k/uL Metamyelocytes # (Man) (0) k/uL Myelocytes # (Manual) (0) k/uL Sodium (137-145) mmol/L Chloride (98-107) mmol/L Carbon Dioxide (22-30) mmol/L BUN (9-20) mg/dL Glucose (74-99) mg/dL POC Glucose (mg/dL) 129 H 145 H 146 H (75-99) mg/dL 10/02/20 10/02/20 Range/Units 04:31 04:31 WBC 22.9 H (3.8-10.6) k/uL RBC 3.93 L (4.30-5.90) m/uL Hgb 12.3 L (13.0-17.5) gm/dL Hct 37.1 L (39.0-53.0) % Neutrophils # (Manual) 14.40 H (1.3-7.7) k/uL Monocytes # (Manual) 1.37 H (0-1.0) k/uL Metamyelocytes # (Man) 3.44 H (0) k/uL Myelocytes # (Manual) 1.15 H (0) k/uL Sodium 132 L (137-145) mmol/L Chloride 94 L (98-107) mmol/L Carbon Dioxide 32 H (22-30) mmol/L BUN 43 H (9-20) mg/dL Glucose 128 H (74-99) mg/dL POC Glucose (mg/dL) (75-99) mg/dL Microbiology - Last 24 Hours (Table) 09/11/20 09:16 Acid Fast Bacilli Smear - Final Bronchoalviolar Lavage - Right Acid Fast Bacilli Culture - Preliminary 09/11/20 09:16 Fungal Culture - Preliminary Bronchoalviolar Lavage - Right
--- NOTE | 2020-10-02 13:34 | PN ---
PROGRESS NOTE DATE OF SERVICE: 10/02/2020 REASON FOR FOLLOWUP: 1. Thrust. 2. Leukocytosis. INTERVAL HISTORY: The patient is currently afebrile. Patient is breathing comfortably. The patient denies having any chest pain or shortness of breath. Occasional cough. No abdominal pain or diarrhea. PHYSICAL EXAMINATION: Blood pressure 116/69, pulse of 66, temperature 97.4. He is 94% on room air. General description is an elderly male up in the bed in no distress. RESPIRATORY SYSTEM: Unlabored breathing with decreased breath sounds at the bases. No wheeze. HEART: S1, S2. Regular rate and rhythm. ABDOMEN: Soft, no tenderness. LABS: Hemoglobin is 12.3, white count 22.9, BUN of 43, creatinine 0.81. DIAGNOSTIC IMPRESSION AND PLAN: 1. Patient admitted to the hospital with unresponsive concern for aspiration pneumonia adequately treated. 2. Elevated white count, more of multifactorial, possible steroid effect, possibly related to multiple lines which the patient currently has been removed. Recommend repeating a CBC in the next 3 or 4 days to make they have normalized. 3. Oral thrush received adequate Eraxis. Will finish therapy with nystatin swish and swallow or swish and spit, depending upon his ability. MMODL / IJN: [id number] /
[2020-10-03] MEDS ORDERED: predniSONE 10 MG TAB PO SCH (09:00)
== END 2020-10-02 12:25 | DRG 853 ==
LOC: EC 10:49 → 3SCARD 13:22 → 2SICU 14:04 → 3SCARD 09-27 02:36 → 6NMEDSUR 10-01 23:14
PROVIDERS: ADMIT Internal Medicine; ATTEND Internal Medicine
PROC: 5A1223Z Performance of Cardiac Pacing, Continuous (ICD-10-PCS; 2020-09-08)
PROC: 4A023N6 Measurement of Cardiac Sampling and Pressure, Right Heart, Percutaneous Approach (ICD-10-PCS; 2020-09-08)
PROC: 3E033XZ Introduction of Vasopressor into Peripheral Vein, Percutaneous Approach (ICD-10-PCS; 2020-09-08)
PROC: 0D9670Z Drainage of Stomach with Drainage Device, Via Natural or Artificial Opening (ICD-10-PCS; 2020-09-08)
PROC: 5A1955Z Respiratory Ventilation, Greater than 96 Consecutive Hours (ICD-10-PCS; 2020-09-08 15:15)
PROC: 0BH17EZ Insertion of Endotracheal Airway into Trachea, Via Natural or Artificial Opening (ICD-10-PCS; 2020-09-08 15:15)
PROC: 4A133B1 Monitoring of Arterial Pressure, Peripheral, Percutaneous Approach (ICD-10-PCS; 2020-09-09)
PROC: 4A133J1 Monitoring of Arterial Pulse, Peripheral, Percutaneous Approach (ICD-10-PCS; 2020-09-09)
PROC: 03HY32Z Insertion of Monitoring Device into Upper Artery, Percutaneous Approach (ICD-10-PCS; 2020-09-09)
PROC: 02H633Z Insertion of Infusion Device into Right Atrium, Percutaneous Approach (ICD-10-PCS; 2020-09-09)
PROC: 3E0G76Z Introduction of Nutritional Substance into Upper GI, Via Natural or Artificial Opening (ICD-10-PCS; 2020-09-09)
PROC: 0B9D8ZX Drainage of Right Middle Lung Lobe, Via Natural or Artificial Opening Endoscopic, Diagnostic (ICD-10-PCS; 2020-09-11)
PROC: 5A0945A Assistance with Respiratory Ventilation, 24-96 Consecutive Hours, High Flow/Velocity Cannula (ICD-10-PCS; 2020-09-13)
PROC: 5A09457 Assistance with Respiratory Ventilation, 24-96 Consecutive Hours, Continuous Positive Airway Pressure (ICD-10-PCS; 2020-09-16)
PROC: 02HV33Z Insertion of Infusion Device into Superior Vena Cava, Percutaneous Approach (ICD-10-PCS; 2020-09-18)
PROC: 3E0436Z Introduction of Nutritional Substance into Central Vein, Percutaneous Approach (ICD-10-PCS; 2020-09-18)
PROC: 02P Heart and Great Vessels, Removal (ICD-10-PCS; 2020-09-20)
PROC: 02HK3JZ Insertion of Pacemaker Lead into Right Ventricle, Percutaneous Approach (ICD-10-PCS; 2020-09-20)
PROC: 02H63JZ Insertion of Pacemaker Lead into Right Atrium, Percutaneous Approach (ICD-10-PCS; 2020-09-20)
PROC: 0DH63UZ Insertion of Feeding Device into Stomach, Percutaneous Approach (ICD-10-PCS; 2020-09-24)
PROC: 3E0G76Z Introduction of Nutritional Substance into Upper GI, Via Natural or Artificial Opening (ICD-10-PCS; 2020-09-25)
PROC: 02H63JZ Insertion of Pacemaker Lead into Right Atrium, Percutaneous Approach (ICD-10-PCS; principal; 2020-09-29 07:30)
PROC: 0JH606Z Insertion of Pacemaker, Dual Chamber into Chest Subcutaneous Tissue and Fascia, Open Approach (ICD-10-PCS; principal; 2020-09-29 07:30)
PROC: 02HK3JZ Insertion of Pacemaker Lead into Right Ventricle, Percutaneous Approach (ICD-10-PCS; principal; 2020-09-29 07:30)
DX: A41.9 Sepsis, unspecified organism (principal); R65.21 Severe sepsis with septic shock; N17.0 Acute kidney failure with tubular necrosis; K72.00 Acute and subacute hepatic failure without coma; J96.01 Acute respiratory failure with hypoxia; J69.0 Pneumonitis due to inhalation of food and vomit; G92 Toxic encephalopathy; J18.9 Pneumonia, unspecified organism; I21.A1 Myocardial infarction type 2; E43 Unspecified severe protein-calorie malnutrition; I46.2 Cardiac arrest due to underlying cardiac condition; I44.2 Atrioventricular block, complete; B37.0 Candidal stomatitis; F05 Delirium due to known physiological condition; E87.4 Mixed disorder of acid-base balance; E87.0 Hyperosmolality and hypernatremia; E87.1 Hypo-osmolality and hyponatremia; R00.1 Bradycardia, unspecified; Z20.822 Contact with and (suspected) exposure to COVID-19; I10 Essential (primary) hypertension; E86.1 Hypovolemia; E87.6 Hypokalemia; R13.10 Dysphagia, unspecified; I08.1 Rheumatic disorders of both mitral and tricuspid valves; E78.5 Hyperlipidemia, unspecified; E87.70 Fluid overload, unspecified; E03.9 Hypothyroidism, unspecified; K43.9 Ventral hernia without obstruction or gangrene; R73.9 Hyperglycemia, unspecified; T38.0X5A Adverse effect of glucocorticoids and synthetic analogues, initial encounter; R53.81 Other malaise; Z68.23 Body mass index [BMI] 23.0-23.9, adult; Z79.890 Hormone replacement therapy; Z79.899 Other long term (current) drug therapy; Z78.1 Physical restraint status; Z88.1 Allergy status to other antibiotic agents; Z88.0 Allergy status to penicillin
CPT/HCPCS: 31500; 31624; 33208; 33210; 33211; 36415; 36573; 36600; 43246; 71045; 74230; 76770; 80048; 80053; 80202; 81001; 82040; 82330; 82728; 82805; 83036; 83605; 83615; 83735; 83880; 84100; 84132; 84145; 84439; 84478; 84481; 84484; 85025; 85027; 85610; 85730; 86140; 87040; 87070; 87102; 87116; 87205; 87206; 87252; 87449; 87496; 87498; 87502; 87529; 87634; 87635; 87798; 88104; 88305; 93005; 93308; 93451; 94002; 94003; 94640; 94660; 94760; 96361; 96365; 96367; 96368; 96375; 99291

== ENCOUNTER 2020-11-12 11:12 | Emergency (ER) | payer MEDICARE ==
[2020-11-12 11:18] VITALS: RESP 18
--- NOTE | 2020-11-12 12:50 | ED ---
Recheck HPI - General Chief Complaint: Recheck/Abnormal Lab/Rx Stated Complaint: PEG tube came out Source: patient Mode of arrival: wheelchair Limitations: no limitations - History of Present Illness Initial Comments: 74-year-old male presents to ER today for chief complaint of PEG tube follow-up. Patient states he had a PEG tube placed in September when he was sick and hospitalized for extended period time. Patient states that he was using because he wasn't eating patient states he is now eating everything orally and does not believe in need the PEG tube anymore. He states his appointment coming up with a surgeon to have it removed permanently. Patient states that the tube fell out last night. Patient denies abdominal savannah, nausea, vomiting, fevers. patient has no additional concerns. - Related Data Previous Rx's Medication Instructions Recorded Furosemide [Lasix] 40 mg PO BID@0900,1600 tab 10/01/20 Ipratropium-Albuterol Nebulize 3 ml INHALATION RT-QID PRN #3 ml 10/01/20 [Duoneb 0.5 mg-3 mg/3 ml Soln] Levothyroxine Sodium [Synthroid] 100 mcg PO DAILY@0800 tab 10/01/20 Melatonin 5 mg PO HS #30 tablet 10/01/20 Nystatin 100,000 Unit/ml Susp 5 ml PO QID 5 Days #5 ml 10/01/20 [Mycostatin Oral Susp] Pantoprazole [Protonix] 40 mg PO AC-BRKFST tablet. 10/01/20 predniSONE 10 mg PO DAILY #3 tab 10/01/20 Allergies Allergy/AdvReac Type Severity Reaction Status Date / Time cephalexin [From Keflex] Allergy Rash/Hives Verified 11/12/20 11:18 Penicillins Allergy Anaphylaxis Verified 11/12/20 11:18 Review of Systems ROS Statement: Those systems with pertinent positive or pertinent negative responses have been documented in the HPI. ROS Other: All systems not noted in ROS Statement are negative. Past Medical History Past Medical History: Hyperlipidemia, Thyroid Disorder Additional Past Medical History / Comment(s): ventral hernia History of Any Multi-Drug Resistant Organisms: None Reported Past Surgical History: Unable to Obtain Additional Past Surgical History / Comment(s): abd, 1/2 stomach removed, peg tube Past Anesthesia/Blood Transfusion Reactions: Unable to Obtain Past Psychological History: No Psychological Hx Reported Smoking Status: Never smoker Past Alcohol Use History: None Reported Past Drug Use History: None Reported General Exam - General Exam Comments Initial Comments: General: The patient is awake and alert, in no distress Eye: Pupils are equal, round and reactive to light, extra-ocular movements are intact. No nystagmus. There is normal conjunctiva bilaterally. No signs of icterus. Cardiovascular: There is a regular rate and rhythm. No murmur, rub or gallop is appreciated. Respiratory: Lungs are clear to auscultation, respirations are non-labored, breath sounds are equal. No wheezes, stridor, rales, or rhonchi. Gastrointestinal: Soft, non-distended, non-tender abdomen without masses or organomegaly noted. There is no rebound or guarding present. Musculoskeletal: Normal ROM, no tenderness. Strength 5/5. Sensation intact. Radial pulses equal bilaterally 2+. Neurological: A&O x 3. CN II-XII intact grossly, There are no obvious motor or sensory deficits. Coordination appears grossly intact. Speech is normal. Skin: Skin is warm and dry and no rashes. Small 1cm opening noted LUQ. Psychiatric: Cooperative, appropriate mood & affect, normal judgment. Limitations: no limitations Course Vital Signs 11/12/20 11/12/20 11:15 13:10 Temperature 97.6 F 97.8 F Pulse Rate 95 69 Respiratory 18 18 Rate Blood Pressure 103/59 114/84 O2 Sat by Pulse 96 98 Oximetry Medical Decision Making - Medical Decision Making no bleeding at peg tube site. patient would like removal. attempted replacement with consent. no success. consutled surgeon who states, the peg tube can be left out as he is tolerating oral intake. patient discharged appearing wlel, happy with this plan. Disposition Clinical Impression: PEG tube malfunction Disposition: HOME SELF-CARE Condition: Good Additional Instructions: Please follow-up with general surgery in the next 2 days. Please return to emergency room if the symptoms increase or worsen or for any other concerns. Is patient prescribed a controlled substance at d/c from ED?: No Referrals: Breanna Bean MD [Primary Care Provider] - 1-2 days Shaw Dunbar MD [STAFF PHYSICIAN] - 1-2 days Time of Disposition: 12:48
[2020-11-12 13:11] VITALS: BP 114/84; PULSE 69; TEMP 97.8
== END 2020-11-12 13:10 | disposition home or self-care (01) ==
LOC: EC 11:12
DX: K94.23 Gastrostomy malfunction (principal); E78.5 Hyperlipidemia, unspecified; E07.9 Disorder of thyroid, unspecified
CPT/HCPCS: 99282

== ENCOUNTER 2022-07-30 20:14 | Emergency (ER) | payer MEDICARE, OTHER ==
[2022-07-30 20:29] VITALS: RESP 15; TEMP 98.1
[2022-07-30] MEDS ORDERED: LIDOCAINE 1% INJ 10MG/ML (30 ML VIAL-PF) SQ ONE (21:11)
[2022-07-30] MEDS ORDERED: CLINDAMYCIN 150 MG CAP PO STA (21:12)
--- NOTE | 2022-07-30 21:46 | CT ---
EXAMINATION TYPE: CT facial bones wo con CT DLP: 667.9 mGycm, Automated exposure control for dose reduction was used. DATE OF EXAM: 07/30/2022 9:27 PM COMPARISON: None. CLINICAL INDICATION:Male, 76 years old with history of fall, facial trauma after fall TECHNIQUE: Multiple unenhanced axial CT images were obtained of the facial bones soft tissue and bone windows. Coronal, axial and sagittal reformatted images were also provided in soft tissue and bone windows and submitted for interpretation. Additional 3-D reformatted images were obtained on a [employer] workstation. FINDINGS: Skin defect in the forehead without evidence of fracture. The nasal bone demonstrates deformity with bilateral nasal bone fractures right greater than left. There is soft tissue swelling over the nasal bridge. The globes are intact. No evidence for significant paranasal sinus disease. The temporomandib ular joints are symmetric. Mastoid air cells are intact. IMPRESSION: Bilateral nasal bone fractures with associated laceration to forehead. No acute intracranial process.
--- NOTE | 2022-07-30 21:58 | ED ---
General Adult HPI - General Chief complaint: Wound/Laceration Stated complaint: Fall Time Seen by Provider: 07/30/22 20:29 Source: EMS Mode of arrival: EMS Limitations: no limitations - History of Present Illness Initial comments: Patient is a 76-year-old male who presents to the emergency department with chief complaint fall. Patient was walking from his barn to his home when he had some he tripped and landed on his face. Patient did not lose consciousness. 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 Patient was able to ambulate after the fall and walking with no gait abnormality per . Reports minimal pain over his forehead over laceration. He denies headache, double vision, blurry vision, lightheadedness, dizziness, neck pain chest pain, shortness breath, nausea, vomiting. Tetanus up-to-date. - Related Data Previous Rx's Medication Instructions Recorded Furosemide [Lasix] 40 mg PO BID@0900,1600 tab 10/01/20 Ipratropium-Albuterol Nebulize 3 ml INHALATION RT-QID PRN #3 ml 10/01/20 [Duoneb 0.5 mg-3 mg/3 ml Soln] Levothyroxine Sodium [Synthroid] 100 mcg PO DAILY@0800 tab 10/01/20 Melatonin 5 mg PO HS #30 tablet 10/01/20 Nystatin 100,000 Unit/ml Susp 5 ml PO QID 5 Days #5 ml 10/01/20 [Mycostatin Oral Susp] Pantoprazole [Protonix] 40 mg PO AC-BRKFST tablet. 10/01/20 predniSONE 10 mg PO DAILY #3 tab 10/01/20 Clindamycin [Cleocin] 450 mg PO Q8H #40 capsule 07/30/22 Allergies Allergy/AdvReac Type Severity Reaction Status Date / Time cephalexin [From Keflex] Allergy Rash/Hives Verified 07/30/22 20:23 Penicillins Allergy Anaphylaxis Verified 07/30/22 20:23 Review of Systems ROS Statement: Those systems with pertinent positive or pertinent negative responses have been documented in the HPI. ROS Other: All systems not noted in ROS Statement are negative. Past Medical History Past Medical History: Hyperlipidemia, Thyroid Disorder Additional Past Medical History / Comment(s): ventral hernia History of Any Multi-Drug Resistant Organisms: None Reported Past Surgical History: Unable to Obtain Additional Past Surgical History / Comment(s): abd, 1/2 stomach removed, peg tube Past Anesthesia/Blood Transfusion Reactions: Unable to Obtain Past Psychological History: No Psychological Hx Reported Smoking Status: Never smoker Past Alcohol Use History: None Reported Past Drug Use History: None Reported General Exam Limitations: no limitations General appearance: alert, in no apparent distress Head exam: Absent: normal inspection (large right sided forehead laceration, skin tear over right lip) Eye exam: Present: normal appearance, PERRL, EOMI. Absent: scleral icterus, conjunctival injection, periorbital swelling ENT exam: Present: normal oropharynx, TM's normal bilaterally, other (Deformity of nose with evidence of bilateral epistaxis. No active bleeding) Neck exam: Present: normal inspection, full ROM. Absent: tenderness Respiratory exam: Present: normal lung sounds bilaterally. Absent: respiratory distress, wheezes, rales, rhonchi, stridor Cardiovascular Exam: Present: regular rate, normal rhythm, normal heart sounds. Absent: systolic murmur, diastolic murmur, rubs, gallop, clicks Extremities exam: Present: full ROM, normal capillary refill, other (Full strength, neurovascularly intact). Absent: normal inspection (skin tear right elbow and left wrist ) Neurological exam: Present: alert, oriented X3, CN II-XII intact Psychiatric exam: Present: normal affect, normal mood Skin exam: Present: warm, dry, intact, normal color. Absent: rash Course Vital Signs 07/30/22 20:23 Temperature 98.1 F Pulse Rate 84 Respiratory 15 Rate Blood Pressure 146/86 O2 Sat by Pulse 100 Oximetry Procedures - Laceration Laceration #1 Indication: laceration Site: other (right forehard 10 cm) Description: irregular Depth: simple, single layer Anesthetic Used: lidocaine 1% Anesthesia Technique: local infiltration Pre-repair: wound explored, irrigated extensively Type of Sutures: nylon Size of Sutures: 5-0 Number of Sutures: 11 Technique: simple, interrupted Patient Tolerated Procedure: well, no complications Laceration #2 Consent Obtained: verbal consent Indication: laceration Site: other (nose) Size (cm): 2 Description: irregular Depth: simple, single layer Anesthetic Used: lidocaine 1% Anesthesia Technique: local infiltration Pre-repair: wound explored, irrigated extensively Size of Sutures: 5-0 Number of Sutures: 2 Technique: simple, interrupted Patient Tolerated Procedure: well, no complications Medical Decision Making - Medical Decision Making This is a 76-year-old male who fell on blood thinners. Alert and oriented x 4. No neurological deficits. No loss of lower extremity strength. No headache, nausea, vomiting. No neck pain. Due to fall on blood thinners CT of the brain and C-spine was obtained and interpreted by me which shows an odontoid process to 2 fracture which is unstable. There is anterior displacement of the vertebral body with respect to be odontoid approximately 6 mm. Neurosurgery consult recommended. There is no acute intracranial process. CT of the facial bones shows bilateral nasal bone fracture with associated laceration to the forehead. Patient placed in c-collar. Head of bed lowered. Patient lying flat. Case discussed with my supervising physician Dr. Mooney who recommended transfer for neurosurgery evaluation. Case discussed with Dr. Crews at [facility] who requested that our orthopedic senior marketing specialist take this case. Case then discussed with Dr. Arceo who reviewed CT in detail. Dr. Arceo is comfortable with patient going home with strict return parameters. He is to keep the c- collar on until orthopedic evaluation in the office on Thursday. This was discussed with patient in detail. Lacerations were closed. Skin tears irrigated extensively and dressing placed. Tetanus update is not indicated. Wound care education provided in detail. Patient to follow-up with Dr. Arceo on Thursday. Will return in 5-7 days for suture removal. Dr. Mooney is my attending. Disposition Clinical Impression: Laceration, Fall, Nasal bone fractures, Odontoid fracture with type II morphology, Skin tear Disposition: HOME SELF-CARE Condition: Good Instructions (If sedation given, give patient instructions): Care For Your Stitches (ED), Nasal Fracture (ED), Laceration (ED), Nosebleed (ED), Cervical Fracture (ED), Soft Cervical Collar (ED) Additional Instructions: You must keep c-collar on at all times. C-collar must stay on while sleeping and showering. Sleep flat to protect your spine. Please follow-up with Dr. Arceo in the morning for appointment on Thursday. Take Tylenol for pain. Avoid anti-inflammatory use for the next 48 hours. Take prescribed Tylenol 3 as needed for severe pain. Do not take Tylenol and Tylenol 3 together. Leave wound uncovered. Keep wound clean and dry. Wash with a mild soap. Take antibiotic as directed. Follow-up with ENT specialist first thing in the morning. Follow-up with primary care provider in 1-2 days. Return for suture removal in 5-7 days. Report back to the emergency department if you experience new, concerning, or worsening symptoms. Prescriptions: Clindamycin [Cleocin] 450 mg PO Q8H #40 capsule Is patient prescribed a controlled substance at d/c from ED?: No Referrals: Breanna Bean MD [Primary Care Provider] - 1-2 days Linda Arceo DO [Doctor of Osteopathic Medicine] - 1-2 days Rudy Mckinley MD [STAFF PHYSICIAN] - 1-2 days Time of Disposition: 00:20
--- NOTE | 2022-07-30 22:18 | CT ---
EXAMINATION TYPE: CT brain cspine wo con CT DLP: 1502.6 mGycm, Automated exposure control for dose reduction was used. DATE OF EXAM: 07/30/2022 9:58 PM COMPARISON: CT facial same day. CLINICAL INDICATION:Male, 76 years old with history of fall on thinners; TECHNIQUE: Brain: Multiple axial CT images of the brain were obtained without IV contrast. Cspine: Axial CT images from the skull base to the inferior aspect of T2 we obtained without intraven ous contrast. Coronal and sagittal reformatted images were also reviewed. FINDINGS: Brain: Extra-axial spaces: No abnormal extra-axial fluid collections. Ventricular system: Dilatation in proportion to cerebral atrophy. Cerebral parenchyma: Cerebral atrophy. No acute intraparenchymal hemorrhage or mass effect. The martinez -white junction is well differentiated. Scattered hypoattenuating areas are seen within the white mat ter. Cerebellum: Unremarkable. Mass effect: No evidence of midline shift. Intracranial vasculature: unremarkable Soft tissues: Normal. Calvarium/osseous structures: No depressed skull fracture. Bilateral nasal bone fractures. Paranasal sinuses and mastoid air cells: Clear. Visualized orbits: Orbital contents are intact. Cervical spine: Fracture: There is fracture of the odontoid process which is a type II, there is anterior displacemen t of vertebral body with respect to the odontoid of approximately 6 mm. Osseous structures: Multilevel degenerative disc disease changes with endplate spurring and disc oste ophyte complex's. Vertebral alignment: Within normal limits. Spinal canal/Neural Foramina: Disc osteophyte complexes at C5-C6. With at least mild spinal canal rocco nosis. No evidence for significant neural foraminal stenosis. Neck soft tissues: Prevertebral soft tissues are within normal limits. Other: The airway is patent. The lung apices are clear. Layering debris within the esophagus. IMPRESSION: 1. Odontoid process type II fracture which is an unstable fracture. There is anterior displacement o f the vertebral body. Neurosurgery consultation recommended. 2. No acute intracranial process. 3. Nonspecific white matter changes, likely secondary to chronic small vessel ischemic disease. 4. Moderate multilevel degenerative disc disease. 5. Layering debris within the esophagus correlate for reflux versus dysmotility. Findings attempted to be communicated to ED on 07/30/2022 10:[address] Navin Murrieta. No an swer on ER phone system.
[2022-07-31] MEDS ORDERED: ACET/COD 300 MG/30 MG STARTER PACK 6 TAB BTL PO STA (00:08)
[2022-07-31 00:49] VITALS: BP 137/77; PULSE 78
== END 2022-07-31 00:57 | disposition home or self-care (01) ==
LOC: EC 20:14
DX: S01.81XA Laceration without foreign body of other part of head, initial encounter (principal); S01.21XA Laceration without foreign body of nose, initial encounter; S02.2XXA Fracture of nasal bones, initial encounter for closed fracture; S12.100A Unspecified displaced fracture of second cervical vertebra, initial encounter for closed fracture; E78.5 Hyperlipidemia, unspecified; E07.9 Disorder of thyroid, unspecified; Z88.0 Allergy status to penicillin; Z88.1 Allergy status to other antibiotic agents; Z79.899 Other long term (current) drug therapy; Z79.01 Long term (current) use of anticoagulants; Z79.890 Hormone replacement therapy; W01.0XXA Fall on same level from slipping, tripping and stumbling without subsequent striking against object, initial encounter
CPT/HCPCS: 99284; 12015 ×2; 72125; 70486; 70450; L0174; J2001

== ENCOUNTER 2022-07-31 13:52 | Emergency (ER) | payer MEDICARE, OTHER ==
[2022-07-31 14:23] VITALS: BP 128/67; TEMP 99
[2022-07-31] MEDS ORDERED: LIDOCAINE/EPINEPHR/TETRACAINE 5 ML BOTTLE TOPICAL ONE (14:35)
[2022-07-31] MEDS ORDERED: TOPICAL SKIN ADHESIVE 1 EACH AMP TOPICAL ONE (14:35)
[2022-07-31] MEDS ORDERED: CLINDAMYCIN 150 MG CAP PO STA (14:58)
[2022-07-31] MEDS ORDERED: LIDOCAINE 1% INJ 10MG/ML (30 ML VIAL-PF) SQ ONE (15:19)
--- NOTE | 2022-07-31 15:31 | ED ---
Recheck HPI - General Chief Complaint: Recheck/Abnormal Lab/Rx Stated Complaint: Fall-head injury on thinners-recheck Time Seen by Provider: 07/31/22 14:28 Source: patient, family, RN notes reviewed Mode of arrival: wheelchair Limitations: no limitations - History of Present Illness Initial Comments: This is a 76-year-old male who presents to the emergency department for bleeding from an injury he sustained yesterday. He was evaluated here yesterday after falling in his driveway. He was diagnosed with fractures in the neck and bilateral nasal bones. Sutures were placed in the forehead. His states that the bleeding has been uncontrollable on the forehead. Additionally, the wrong dose of antibiotics was prescribed and he has not been able to take any of these. His also states that his right eye seems to be turning inwards more than normal, which concerns her. He denies any blurry vision, double vision, or pain in the eye. He has an appointment with the orthopedic surgeon tomorrow and the textile colorist dyer in 4 days. Denies any fevers, chills, sore throat, cough, dyspnea, chest pain, palpitations, abdominal pain, nausea, vomiting, diarrhea, back pain, or headaches. MD Complaint: wound re-check Initial Visit For: laceration Returns Today for: wound recheck Treatments Prior to Arrival: dressings - Related Data Previous Rx's Medication Instructions Recorded Furosemide [Lasix] 40 mg PO BID@0900,1600 tab 10/01/20 Ipratropium-Albuterol Nebulize 3 ml INHALATION RT-QID PRN #3 ml 10/01/20 [Duoneb 0.5 mg-3 mg/3 ml Soln] Levothyroxine Sodium [Synthroid] 100 mcg PO DAILY@0800 tab 10/01/20 Melatonin 5 mg PO HS #30 tablet 10/01/20 Nystatin 100,000 Unit/ml Susp 5 ml PO QID 5 Days #5 ml 10/01/20 [Mycostatin Oral Susp] Pantoprazole [Protonix] 40 mg PO AC-BRKFST tablet. 10/01/20 predniSONE 10 mg PO DAILY #3 tab 10/01/20 Clindamycin [Cleocin] 450 mg PO Q8H 5 Days #45 cap 07/31/22 Allergies Allergy/AdvReac Type Severity Reaction Status Date / Time cephalexin [From flex] Allergy Rash/Hives Verified 07/31/22 14:23 Penicillins Allergy Anaphylaxis Verified 07/31/22 14:23 Review of Systems ROS Statement: Those systems with pertinent positive or pertinent negative responses have been documented in the HPI. ROS Other: All systems not noted in ROS Statement are negative. Past Medical History Past Medical History: Hyperlipidemia, Thyroid Disorder Additional Past Medical History / Comment(s): ventral hernia History of Any Multi-Drug Resistant Organisms: None Reported Past Surgical History: Unable to Obtain, Pacemaker Additional Past Surgical History / Comment(s): abd, 1/2 stomach removed, peg tube Past Anesthesia/Blood Transfusion Reactions: Unable to Obtain Past Psychological History: No Psychological Hx Reported Smoking Status: Never smoker Past Alcohol Use History: None Reported Past Drug Use History: None Reported General Exam General appearance: alert, in no apparent distress, other (c-collar in place) Head exam: Present: other (Bilateral periorbital edema and ecchymosis. Swelling and dried blood on the nose. 2 lacerations to the forehead with sutures in place and active bleeding.) Eye exam: Present: PERRL, EOMI, other (No signs of extraocular muscle entrapment) Pupils: Present: normal accommodation Respiratory exam: Present: normal lung sounds bilaterally. Absent: respiratory distress, wheezes, rales, rhonchi, stridor Cardiovascular Exam: Present: regular rate, normal rhythm, normal heart sounds. Absent: systolic murmur, diastolic murmur, rubs, gallop, clicks Neurological exam: Present: alert, oriented X3, CN II-XII intact Psychiatric exam: Present: normal affect, normal mood Course Vital Signs 07/31/22 07/31/22 14:10 16:05 Temperature 99 F Pulse Rate 92 80 Respiratory 18 16 Rate Blood Pressure 128/67 O2 Sat by Pulse 100 99 Oximetry Procedures - Laceration Laceration #1 Consent Obtained: verbal consent Indication: laceration Site: face Description: linear Depth: simple, single layer Anesthetic Used: lidocaine 1% Anesthesia Technique: local infiltration Amount (mls): 2 Size of Sutures: 5-0 Number of Sutures: 2 Technique: simple, interrupted Additional Comments: Sutures were already placed, 2 additional sutures were placed in the larger lateral laceration to control the bleeding. Medical Decision Making - Medical Decision Making This is a 76-year-old male who presents to the emergency department for recheck of a laceration and abnormal movement of the right eye. ED attending, Dr. Mooney, evaluated the patient alongside of me. He discussed with the patient that the movement of the eye may be related to muscle laxity, and there is no sign of extraocular muscle entrapment. He was given a dose of clindamycin in the emergency department and the correct dose was resent to the pharmacy. LET was initially applied to control the bleeding, however this was not effective and 2 additional sutures were placed in the lateral most laceration on the forehead. Both lacerations were then covered with exofin and Steri-Strips. Hemostasis was achieved. Advised he continue with nasal precautions. He will follow up with orthopedics and ENT as scheduled. Return precautions reviewed in depth, the patient is instructed to return to the emergency department with any new, worsening, or concerning symptoms. Patient verbalized understanding. This case was discussed in detail with the attending ED physician. Presentation, findings, and treatment plan discussed in detail as well. Disposition Clinical Impression: Laceration Disposition: HOME SELF-CARE Instructions (If sedation given, give patient instructions): Care For Your Stitches (ED), Nasal Fracture (ED), Soft Cervical Collar (ED), Skin Adhesive Care (ED), Steristrips (ED), Lor[place] J Collar (ED) Additional Instructions: Return to the emergency department with any new, worsening, or concerning symptoms. Take the antibiotic as prescribed for 5 days. Continue to practice nasal precautions. Follow up with orthopedic surgery and ENT as scheduled. Prescriptions: Clindamycin [Cleocin] 450 mg PO Q8H 5 Days #45 cap Is patient prescribed a controlled substance at d/c from ED?: No Referrals: Breanna Bean MD [Primary Care Provider] - 1-2 days
[2022-07-31 16:17] VITALS: PULSE 80; RESP 16
== END 2022-07-31 16:16 | disposition home or self-care (01) ==
LOC: EC 13:52
DX: S01.81XA Laceration without foreign body of other part of head, initial encounter (principal); E78.5 Hyperlipidemia, unspecified; E07.9 Disorder of thyroid, unspecified; Z88.0 Allergy status to penicillin; Z88.1 Allergy status to other antibiotic agents; Z79.890 Hormone replacement therapy; Z79.899 Other long term (current) drug therapy; W01.0XXA Fall on same level from slipping, tripping and stumbling without subsequent striking against object, initial encounter
CPT/HCPCS: 99283; 12011; J2001

== ENCOUNTER 2024-10-24 12:03 | Inpatient (IN) | payer MEDICARE, OTHER ==
--- NOTE | 2024-10-24 13:04 | ED ---
Male Urogenital HPI - General Chief complaint: Urogenital Stated complaint: Hematuria Time Seen by Provider: 10/24/24 12:57 Source: patient, EMS, RN notes reviewed Mode of arrival: EMS Limitations: no limitations - History of Present Illness Initial comments: 78-year-old male presenting for weakness x 3 weeks. and son are at bedside and explained that patient and were ill with URI symptoms that began about 3 weeks ago including fever, cough, nasal congestion. States patient has progressively become weaker with decreased appetite since the illness. Also reports some episodes of confusion. States over the past 2 days he has been unable to stand or ambulate due to weakness. Reports patient had blood in his urine that began about 3 days ago. Denies fever. Patient does take Eliquis. History of pacemaker. - Related Data Previous Rx's Medication Instructions Recorded Furosemide [Lasix] 40 mg PO BID@0900,1600 tab 10/01/20 Ipratropium-Albuterol Nebulize 3 ml INHALATION RT-QID PRN #3 ml 10/01/20 [Duoneb 0.5 mg-3 mg/3 ml Soln] Levothyroxine Sodium [Synthroid] 100 mcg PO DAILY@0800 tab 10/01/20 Melatonin 5 mg PO HS #30 tablet 10/01/20 Nystatin 100,000 Unit/ml Susp 5 ml PO QID 5 Days #5 ml 10/01/20 [Mycostatin Oral Susp] Pantoprazole [Protonix] 40 mg PO AC-[id number] tablet. 10/01/20 predniSONE 10 mg PO DAILY #3 tab 10/01/20 Clindamycin [Cleocin] 450 mg PO Q8H 5 Days #45 cap 07/31/22 Allergies Allergy/AdvReac Type Severity Reaction Status Date / Time cephalexin [From Keflex] Allergy Rash/Hives Verified 10/24/24 12:12 Penicillins Allergy Anaphylaxis Verified 10/24/24 12:12 Review of Systems ROS Statement: Those systems with pertinent positive or pertinent negative responses have been documented in the HPI. ROS Other: All systems not noted in ROS Statement are negative. Past Medical History Past Medical History: Hyperlipidemia, Thyroid Disorder Additional Past Medical History / Comment(s): ventral hernia History of Any Multi-Drug Resistant Organisms: None Reported Past Surgical History: Unable to Obtain, Pacemaker Additional Past Surgical History / Comment(s): abd, 1/2 stomach removed, peg tube Past Anesthesia/Blood Transfusion Reactions: Unable to Obtain Past Psychological History: No Psychological Hx Reported Smoking Status: Never smoker Past Alcohol Use History: None Reported Past Drug Use History: None Reported General Exam Limitations: no limitations General appearance: alert, in no apparent distress Head exam: Present: atraumatic, normocephalic, normal inspection Eye exam: Present: normal appearance, PERRL, EOMI. Absent: scleral icterus, conjunctival injection, periorbital swelling ENT exam: Present: normal exam, mucous membranes moist Respiratory exam: Present: normal lung sounds bilaterally. Absent: respiratory distress, wheezes, rales, rhonchi, stridor Cardiovascular Exam: Present: regular rate, normal rhythm, normal heart sounds. Absent: systolic murmur, diastolic murmur, rubs, gallop, clicks Neurological exam: Present: alert, oriented X3, CN II-XII intact Psychiatric exam: Present: normal affect, normal mood Skin exam: Present: warm, dry, intact, normal color. Absent: rash Course Vital Signs 10/24/24 10/24/24 12:04 16:02 Temperature 98.8 F Pulse Rate 73 87 Respiratory 18 17 Rate Blood Pressure 114/75 110/80 O2 Sat by Pulse 100 97 Oximetry Medical Decision Making - Medical Decision Making Was pt. sent in by a medical professional or institution (MIKEY Lloyd, MACHINE S[employer]K SCREEN PRINTER, urgent care, hospital, or senior living...) When possible be specific @ -No Did you speak to anyone other than the patient for history (EMS, parent, family, police, friend...)? What history was obtained from this source @ - supplemented history Did you review nursing and triage notes (agree or disagree)? Why? @ -I reviewed and agree with nursing and triage notes Were old charts reviewed (outside hosp., previous admission, EMS record, old EKG, old radiological studies, urgent care reports/EKG's, senior living records)? Report findings @ -No old charts were reviewed Differential Diagnosis (chest pain, altered mental status, abdominal pain women, abdominal pain men, vaginal bleeding, weakness, fever, dyspnea, syncope, headache, dizziness, GI bleed, back pain, seizure, CVA, palpatations, mental health, musculoskeletal)? @ -Differential Weakness: Hypoglycemia, shock, sepsis, hyponatremia, anemia, infection, RI, ETOH, adverse medicine reaction, overdose, stroke, this is not meant to be an all-inclusive list. EKG interpreted by me (3pts min.). @ -As above X-rays interpreted by me (1pt min.). @ -Chest x-ray reveals mild cardiomegaly with no acute process CT interpreted by me (1pt min.). @ -None done U/S interpreted by me (1pt. min.). @ -None done What testing was considered but not performed or refused? (CT, X-rays, U/S, labs)? Why? @ -None What meds were considered but not given or refused? Why? @ -None Did you discuss the management of the patient with other professionals (professionals i.e. , PA, MACHINE SILK SCREEN PRINTER, lab, RT, psych nurse, social science professor, veneer drier, teacher, customs and immigration officer, clinical case manager)? Give summary @ -I spoke with Jose from [facility] who accepts admission for generalized weakness Was smoking cessation discussed for >3mins.? @ -No Was critical care preformed (if so, how long)? @ -No Were there social determinants of health that impacted care today? How? (Home lessness, low income, unemployed, alcoholism, drug addiction, transportation, low edu. Level, literacy, decrease access to med. care, detention, rehab)? @ -No Was there de-escalation of care discussed even if they declined (Discuss DNR or withdrawal of care, Hospice)? DNR status @ -No What co-morbidities impacted this encounter? (DM, HTN, Smoking, COPD, CAD, Cancer, CVA, ARF, Chemo, Hep., AIDS, mental health diagnosis, sleep apnea, morbid obesity)? @ -None Was patient admitted / discharged? Hospital course, mention meds given and route, prescriptions, significant lab abnormalities, going to OR and other pertinent info. @ -Admitted. EKG reveals ventricularly paced rhythm. Lab work remarkable for leukocytosis of 16, troponin 0.035 improved from baseline, BUN 35, elevated liver enzymes at baseline, elevated alk phos at baseline. Chest x-ray reveals mild cardiomegaly without acute process. Urinalysis remarkable for small amount of blood otherwise not indicative for urinary tract infection. Discussed results with patient and . reports he she does not feel comfortable taking patient home as he is unable to stand or take care of himself. I spoke with Jose from [facility] who accepts admission for generalized weakness. Case was discussed with my ED attending Dr. Graham. Undiagnosed new problem with uncertain prognosis? @ -No Drug Therapy requiring intensive monitoring for toxicity (Heparin, Nitro, Insulin, Cardizem)? @ -No Were any procedures done? @ -No Diagnosis/symptom? @ -Generalized weakness Acute, or Chronic, or Acute on Chronic? @ -Acute Uncomplicated (without systemic symptoms) or Complicated (systemic symptoms)? @ -Complicated Side effects of treatment? @ -No Exacerbation, Progression, or Severe Exacerbation? @ -No Poses a threat to life or bodily function? How? (Chest pain, USA, RI, pneumonia, PE, COPD, DKA, ARF, appy, cholecystitis, CVA, Diverticulitis, Homicidal, Suicidal, threat to staff... and all critical care pts) @ -Unlikely - Lab Data Result diagrams: 10/24/24 13:25 10/24/24 13:25 Lab Results 10/24/24 10/24/24 10/24/24 Range/Units 12:59 13:25 13:25 WBC 16.5 H (3.8-10.6) k/uL RBC 4.73 (4.30-5.90) m/uL Hgb 14.6 (13.0-17.5) gm/dL Hct 44.9 (39.0-53.0) % MCV 94.8 (80.0-100.0) fL MCH 30.9 (25.0-35.0) pg MCHC 32.6 (31.0-37.0) g/dL RDW 13.8 (11.5-15.5) % Plt Count 513 H (150-450) k/uL MPV 8.4 Neutrophils % 80 % Lymphocytes % 8 % Monocytes % 7 % Eosinophils % 0 % Basophils % 0 % Neutrophils # 13.2 H (1.3-7.7) k/uL Lymphocytes # 1.4 (1.0-4.8) k/uL Monocytes # 1.2 H (0-1.0) k/uL Eosinophils # 0.0 (0-0.7) k/uL Basophils # 0.1 (0-0.2) k/uL Hypochromasia Slight PT (10.0-12.5) sec INR (<1.2) APTT (22.0-30.0) sec Sodium 144 (137-145) mmol/L Potassium 4.9 (3.5-5.1) mmol/L Chloride 103 (98-107) mmol/L Carbon Dioxide 21 L (22-30) mmol/L Anion Gap 20 mmol/L BUN 35 H (9-20) mg/dL Creatinine 1.21 (0.66-1.25) mg/dL Est GFR (CKD-EPI)AfAm 66 (>60 ml/min/1.73 sqM) Est GFR (CKD-EPI)NonAf 57 (>60 ml/min/1.73 sqM) Glucose 118 H (74-99) mg/dL Calcium 9.7 (8.4-10.2) mg/dL Magnesium 2.2 (1.6-2.3) mg/dL Total Bilirubin 2.1 H (0.2-1.3) mg/dL AST 117 H (17-59) U/L ALT 54 H (4-49) U/L Alkaline Phosphatase 186 H (38-126) U/L Troponin I (0.000-0.034) ng/mL Total Protein 8.3 H (6.3-8.2) g/dL Albumin 4.1 (3.5-5.0) g/dL Urine Color Yellow Urine Appearance Clear (Clear) Urine pH 5.0 (5.0-8.0) Ur Specific Labolt 1.018 (1.001-1.035) Urine Protein Trace H (Negative) Urine Glucose (UA) Negative (Negative) Urine Ketones Negative (Negative) Urine Blood Small H (Negative) Urine Nitrite Negative (Negative) Urine Bilirubin Negative (Negative) Urine Urobilinogen 3.0 (<2.0) mg/dL Ur Leukocyte Esterase Negative (Negative) Urine RBC 2 (0-5) /hpf Urine WBC 1 (0-5) /hpf Ur Squamous Epith Cells <1 (0-4) /hpf Urine Mucus Rare H (None) /hpf Influenza Type A (PCR) (Not Detectd) Influenza Type B (PCR) (Not Detectd) RSV (PCR) (Not Detectd) SARS-CoV-2 (PCR) (Not Detectd) 10/24/24 10/24/24 10/24/24 Range/Units 13:25 13:25 13:25 WBC (3.8-10.6) k/uL RBC (4.30-5.90) m/uL Hgb (13.0-17.5) gm/dL Hct (39.0-53.0) % MCV (80.0-100.0) fL MCH (25.0-35.0) pg MCHC (31.0-37.0) g/dL RDW (11.5-15.5) % Plt Count (150-450) k/uL MPV Neutrophils % % Lymphocytes % % Monocytes % % Eosinophils % % Basophils % % Neutrophils # (1.3-7.7) k/uL Lymphocytes # (1.0-4.8) k/uL Monocytes # (0-1.0) k/uL Eosinophils # (0-0.7) k/uL Basophils # (0-0.2) k/uL Hypochromasia PT 11.4 (10.0-12.5) sec INR 1.0 (<1.2) APTT 24.3 (22.0-30.0) sec Sodium (137-145) mmol/L Potassium (3.5-5.1) mmol/L Chloride (98-107) mmol/L Carbon Dioxide (22-30) mmol/L Anion Gap mmol/L BUN (9-20) mg/dL Creatinine (0.66-1.25) mg/dL Est GFR (CKD-EPI)AfAm (>60 ml/min/1.73 sqM) Est GFR (CKD-EPI)NonAf (>60 ml/min/1.73 sqM) Glucose (74-99) mg/dL Calcium (8.4-10.2) mg/dL Magnesium (1.6-2.3) mg/dL Total Bilirubin (0.2-1.3) mg/dL AST (17-59) U/L ALT (4-49) U/L Alkaline Phosphatase (38-126) U/L Troponin I 0.035 H* (0.000-0.034) ng/mL Total Protein (6.3-8.2) g/dL Albumin (3.5-5.0) g/dL Urine Color Urine Appearance (Clear) Urine pH (5.0-8.0) Ur Specific Labolt (1.001-1.035) Urine Protein (Negative) Urine Glucose (UA) (Negative) Urine Ketones (Negative) Urine Blood (Negative) Urine Nitrite (Negative) Urine Bilirubin (Negative) Urine Urobilinogen (<2.0) mg/dL Ur Leukocyte Esterase (Negative) Urine RBC (0-5) /hpf Urine WBC (0-5) /hpf Ur Squamous Epith Cells (0-4) /hpf Urine Mucus (None) /hpf Influenza Type A (PCR) Not Detected (Not Detectd) Influenza Type B (PCR) Not Detected (Not Detectd) RSV (PCR) Not Detected (Not Detectd) SARS-CoV-2 (PCR) Not Detected (Not Detectd) - EKG Data -: EKG Interpreted by Me EKG Comments: EKG reveals electronically paced ventricular rhythm. Ventricular rate 103 bpm, MT interval 205, QRS duration 134, QT/QTc 415/475 Disposition Clinical Impression: Generalized weakness Disposition: ADMITTED IP TO THIS [facility] Referrals: Breanna Bean MD [Primary Care Provider] - 1-2 days Time of Disposition: 18:03
[2024-10-24 13:33] LABS: Basophils # (A) 0.1 k/uL (0-0.2); Basophils % (A) 0 %; Eosinophils % (A) 0 %; HCT 44.9 % (39.0-53.0); HGB 14.6 gm/dL (13.0-17.5); Hypochromasia Slight; Lymphocytes # (A) 1.4 k/uL (1.0-4.8); Lymphocytes % (A) 8 %; MCH 30.9 pg (25.0-35.0); MCHC 32.6 g/dL (31.0-37.0); MCV 94.8 fL (80.0-100.0); Mean Platelet Volume 8.4; Monocytes # (A) 1.2 k/uL (0-1.0); Monocytes % (A) 7 %; Neutrophils # (A) 13.2 k/uL (1.3-7.7); Neutrophils % (A) 80 %; Platelet Count 513 k/uL (150-450); RBC 4.73 m/uL (4.30-5.90); RDW 13.8 % (11.5-15.5); WBC 16.5 k/uL (3.8-10.6)
[2024-10-24 13:46] LABS: ALT 54 U/L (4-49); AST 117 U/L (17-59); African American GFR (CKD) 66 (>60 ml/min/1.73 sqM); Albumin 4.1 g/dL (3.5-5.0); Alkaline Phosphatase 186 U/L (38-126); Anion Gap 20 mmol/L; Blood Urea Nitrogen 35 mg/dL (9-20); Calcium 9.7 mg/dL (8.4-10.2); Carbon Dioxide 21 mmol/L (22-30); Chloride 103 mmol/L (98-107); Glucose 118 mg/dL (74-99); Magnesium 2.2 mg/dL (1.6-2.3); Non-African American GFR(CKD) 57 (>60 ml/min/1.73 sqM); Potassium 4.9 mmol/L (3.5-5.1); Sodium 144 mmol/L (137-145); Total Bilirubin 2.1 mg/dL (0.2-1.3); Total Protein 8.3 g/dL (6.3-8.2)
--- NOTE | 2024-10-24 14:08 | XR ---
EXAMINATION TYPE: XR chest 2V DATE OF EXAM: 10/24/2024 1:55 PM COMPARISON: Chest x-ray September 29, 2020 CLINICAL INDICATION: Male, 78 years old with history of cough x 3 weeks, TECHNIQUE: Frontal and lateral views of the chest are obtained. FINDINGS: There is some chronic parenchymal change without suspicious focal air space opacity, pleur al effusion, or pneumothorax seen. There is mild cardiomegaly with dual lead pacemaker and atheroscle rotic thoracic aorta redemonstrated. The osseous structures are intact. IMPRESSION: Mild cardiomegaly without acute pulmonary process. [facility], , 10/24/2024 2:05 PM
[2024-10-24 14:09] LABS: Influenza A Not Detected (Not Detectd); Influenza B Not Detected (Not Detectd); RSV Not Detected (Not Detectd)
[2024-10-24 14:25] LABS: Partial Thromboplastin Time 24.3 sec (22.0-30.0); Prothrombin Time 11.4 sec (10.0-12.5)
[2024-10-24 16:21] LABS: Appearance,Urine Clear (Clear); Bilirubin,Urine Negative (Negative); Blood,Urine Small (Negative); Color,Urine Yellow; Glucose,Urine (UA) Negative (Negative); Ketones,Urine Negative (Negative); Leukocyte Esterase,Urine Negative (Negative); Mucus,Urine Rare /hpf; Nitrite,Urine Negative (Negative); Protein,Urine Trace (Negative); RBC,Urine 2 /hpf (0-5); Specific Gravity,Urine 1.018 (1.001-1.035); Squamous Epithelial Cell,Urine <1 /hpf (0-4); WBC,Urine 1 /hpf (0-5)
[2024-10-24] MEDS ORDERED: ACETAMINOPHEN TAB 325 MG TAB PO PRN (18:02)
[2024-10-24] MEDS ORDERED: ONDANSETRON 4 MG/2 ML VIAL IVP PRN (18:02)
[2024-10-24] MEDS ORDERED: MORPHINE SULFATE 4 MG/ML SYRINGE IV PRN (18:02)
[2024-10-24] MEDS ORDERED: NALOXONE 0.4 MG/ML 1 ML VIAL IV PRN (18:02)
[2024-10-24] MEDS ORDERED: HYDROmorphone 0.5 MG/0.5 ML SYRINGE IVP PRN (18:02)
[2024-10-25] MEDS ORDERED: ONDANSETRON 4 MG/2 ML VIAL IVP PRN (10:06)
[2024-10-25] MEDS ORDERED: BENZOCAINE/MENTHOL LOZENG 1 EACH LOZENGE MUCOUS MEM PRN (10:06)
--- NOTE | 2024-10-25 12:01 | US ---
EXAMINATION TYPE: US abd limited kidneys/bladder DATE OF EXAM: 10/25/2024 COMPARISON: NONE CLINICAL INDICATION: Male, 78 years old with history of Elevated LFTs; abn labs TECHNIQUE: Grayscale and color Doppler imaging of the right upper quadrant including the kidneys and urinary bladder. FINDINGS: EXAM MEASUREMENTS: Liver Length: 17.7 cm Gallbladder Wall: 0.2 cm CBD: 0.4 cm Right Kidney: 10.3 x 3.9 x 4.5 cm Left Kidney: 8.6 x 3.6 x 4.0 cm Pancreas: wnl Liver: wnl Gallbladder: multiple dependant echogenic foci CBD: wnl Right Kidney: wnl Left Kidney: wnl Bladder: not assessed [employer] NOTES: Gallstones are seen. There is no pericholecystic fluid or abnormal wall thickening. IMPRESSION: No suspicious intrahepatic mass or intrahepatic ductal dilatation. [facility], , 10/25/2024 11:58 AM
[2024-10-25] MEDS: MAG HYDROX/AL HYDROX/SIMETH 30 ML CUP PO SCH (12:38)
[2024-10-25] MEDS: METOPROLOL SUCCINATE (ER) 25 MG TAB.ER.24H PO SCH (12:38)
--- NOTE | 2024-10-25 12:55 | P.HPIM ---
History of Present Illness H&P Date: 10/25/24 History of present illness; patient is 78-year-old gentleman with past medical history significant for hypothyroidism, hyperlipidemia presented the ER because of hematuria and generalized weakness. Most of the history is been taken from EMR according to which patient and patient has been sick for the last couple of weeks with upper respiratory infection. Patient was having symptoms of nasal congestion and generalized weakness. Patient also having cough. There was no complaint of shortness of breath. Patient was having decreased appetite and wants to the patient also confused. They also noticed that he was having some blood in his urine over the last couple of days. There was no complaint of chest pain. There is no complaint of palpitation. Over the last 3 days patient has become very weak and is unable to ambulate. Because of generalized weakness, patient was brought to ER. initial lab work done in the ER showed WB 16.5, hemoglobin 14.6, platelet count 513, sodium 144, potassium 4.9, BUN 35, creatinine 1.21, glucose 118, magnesium 2.2, bilirubin 2.1, AST 117, ALT 54, troponin 0.035 , bilirubin 2.1, AST 117, ALT 54, Influenza A not detected Influenza B not detected RSV not detected COVID-19 not detected UA done showed small amount of blood EKG done in the ER showed heart rate of 103, paced rhythm Chest x-ray done in the ER showed cardiomegaly without acute pulmonary Patient admitted to internal medicine service REVIEW OF SYSTEMS: CONSTITUTIONAL: As mentioned above HEENT: No recent visual problems or hearing problems. Denied any sore throat. CARDIOVASCULAR: No chest pain, orthopnea, PND, no palpitations, no syncope. PULMONARY: As mentioned above GASTROINTESTINAL: No diarrhea, no nausea, no vomiting, no abdominal pain. NEUROLOGICAL: No headaches, no weakness, no numbness. HEMATOLOGICAL: Denies any bleeding or petechiae. GENITOURINARY: As mentioned above MUSCULOSKELETAL/RHEUMATOLOGICAL: Denies any joint pain, swelling, or any muscle pain. ENDOCRINE: Denies any polyuria or polydipsia. The rest of the 14-point review of systems is negative. PHYSICAL EXAMINATION: GENERAL: The patient is alert and oriented x3, not in any acute distress. Ill looking HEENT: Pupils are round and equally reacting to light. EOMI. No scleral icterus. No conjunctival pallor. Normocephalic, atraumatic. No pharyngeal erythema. No thyromegaly. CARDIOVASCULAR: S1 and S2 present. No murmurs, rubs, or gallops. PULMONARY: Chest is clear to auscultation, no wheezing or crackles. ABDOMEN: Soft, nontender, nondistended, normoactive bowel sounds. No palpable organomegaly. MUSCULOSKELETAL: No joint swelling or deformity. EXTREMITIES: No cyanosis, clubbing, or pedal edema. NEUROLOGICAL: Gross neurological examination did not reveal any focal deficits. SKIN: No rashes. Assessment and plan Generalized weakness Hematuria Elevated LFTs elevated troponins Status post pacemaker placement secondary to complete heart block Monitor vital signs Monitor CBC Monitor CMP Continue telemetry monitoring Trend troponin Ordered CRP, ESR Ordered Pro-Handy Ordered ultrasound abdomen Avoid for toxic agents Resume Synthroid Ordered PT and OT Consult cardiology Labs and medication were reviewed.. Continue same treatment. Continue with symptomatic treatment. Resume home medication. Monitor labs and vitals. DVT and GI prophylaxis. Further recommendations as per clinical course of the patient Dictation was produced using [employer] dictation software. please excuse any grammatical, word or spelling errors. Past Medical History Past Medical History: Hyperlipidemia, Thyroid Disorder Additional Past Medical History / Comment(s): ventral hernia History of Any Multi-Drug Resistant Organisms: None Reported Past Surgical History: Unable to Obtain, Pacemaker Additional Past Surgical History / Comment(s): abd, 1/2 stomach removed, peg tube Past Anesthesia/Blood Transfusion Reactions: Unable to Obtain Type of Cardiac Device: Permanent Pacemaker Device Placement Date:: unknown Past Psychological History: No Psychological Hx Reported Smoking Status: Never smoker Past Alcohol Use History: None Reported Past Drug Use History: None Reported Medications and Allergies Home Medications Medication Instructions Recorded Confirmed Type Levothyroxine Sodium [Synthroid] 100 mcg PO DAILY@0800 tab 10/01/20 10/25/24 Rx Apixaban [Eliquis] 5 mg PO BID 10/25/24 10/25/24 History Bumetanide [BUMEX] 2 mg PO DAILY@0800 10/25/24 10/25/24 History Bumetanide [Bumex] 1 mg PO PC-SUPPER 10/25/24 10/25/24 History Allergies Allergy/AdvReac Type Severity Reaction Status Date / Time cephalexin [From Keflex] Allergy Rash/Hives Verified 10/25/24 07:41 Penicillins Allergy Anaphylaxis Verified 10/25/24 07:41 Physical Exam Vitals: Vital Signs Temp Pulse Pulse Resp BP BP Pulse Ox 10/25/24 07:55 98.2 F 81 18 101/68 99 10/25/24 03:47 98.0 F 103 H 18 131/73 96 10/25/24 01:36 101 H 18 10/24/24 22:44 98.6 F 101 H 18 130/89 100 10/24/24 22:08 98.1 F 97 20 121/75 97 10/24/24 20:11 98.4 F 82 18 112/61 100 10/24/24 16:02 87 17 110/80 97 10/24/24 12:04 98.8 F 73 18 114/75 100 Intake and Output 10/24/24 10/25/24 10/25/24 22:59 06:59 14:59 Output Total 0 200 Balance 0 -200 Output: Urine 0 200 Other: Voiding Method Urinal Urinal # Voids 1 Weight 78.925 kg 71 kg Results CBC & Chem 7: 10/24/24 13:25 10/24/24 13:25 Labs: Abnormal Lab Results - Last 24 Hours (Table) 10/24/24 10/24/24 10/24/24 Range/Units 12:59 13:25 13:25 WBC 16.5 H (3.8-10.6) k/uL Plt Count 513 H (150-450) k/uL Neutrophils # 13.2 H (1.3-7.7) k/uL Monocytes # 1.2 H (0-1.0) k/uL Carbon Dioxide 21 L (22-30) mmol/L BUN 35 H (9-20) mg/dL Glucose 118 H (74-99) mg/dL Total Bilirubin 2.1 H (0.2-1.3) mg/dL AST 117 H (17-59) U/L ALT 54 H (4-49) U/L Alkaline Phosphatase 186 H (38-126) U/L Troponin I (0.000-0.034) ng/mL Total Protein 8.3 H (6.3-8.2) g/dL Urine Protein Trace H (Negative) Urine Blood Small H (Negative) Urine Mucus Rare H (None) /hpf 02/10/25 Range/Units 13:25 WBC (3.8-10.6) k/uL Plt Count (150-450) k/uL Neutrophils # (1.3-7.7) k/uL Monocytes # (0-1.0) k/uL Carbon Dioxide (22-30) mmol/L BUN (9-20) mg/dL Glucose (74-99) mg/dL Total Bilirubin (0.2-1.3) mg/dL AST (17-59) U/L ALT (4-49) U/L Alkaline Phosphatase (38-126) U/L Troponin I 0.035 H* (0.000-0.034) ng/mL Total Protein (6.3-8.2) g/dL Urine Protein (Negative) Urine Blood (Negative) Urine Mucus (None) /hpf Thrombosis Risk Factor Assmnt - Choose All That Apply Any of the Below Risk Factors Present?: No Other Risk Factors: Yes Each Risk Factor Represents 3 Points: Age 75 years or older Other congenital or acquired thrombophilia - If yes, enter type in comment: No Thrombosis Risk Factor Assessment Total Risk Factor Score: 3 Thrombosis Risk Factor Assessment Level: Moderate Risk
--- NOTE | 2024-10-25 19:30 | CA ---
Transthoracic Echo Report Name: Trent Sheehan Age: 78 Gender: M : 1945 Exam Date: 10/25/2024 14:47 Exam Location: [facility] Ht (in): 70 Wt (lb): 156 Ordering Physician: Sheridan Brown Attending/Referring Phys: [id number], Stephanie Carpenter Maintenance Tia Ratliff RDCS Procedure CPT: Indications: LVF Cardiac Hx: Pacemaker Technical Quality: Poor, Technically difficult study Contrast 1: Definity Total Dose (mL): 2 Contrast 2: Total Dose (mL): MEASUREMENTS (Male / Female) Normal Values 2D ECHO LV Diastolic Diameter PLAX 3.9 cm 4.2 - 5.9 / 3.9 - 5.3 cm LV Systolic Diameter PLAX 2.0 cm IVS Diastolic Thickness 1.1 cm 0.6 - 1.0 / 0.6 - 0.9 cm LVPW Diastolic Thickness 1.2 cm 0.6 - 1.0 / 0.6 - 0.9 cm LV Relative Wall Thickness 0.6 RV Internal Dim ED PLAX 1.5 cm LVOT Diameter 1.9 cm LA Systolic Diameter LX 4.4 cm 3.0 - 4.0 / 2.7 - 3.8 cm LA Volume 63.1 cm??? 18 - 58 / 22 - 52 cm??? LA Volume Index 33.7 cm???/m??? 16 - 28 cm???/m??? M-MODE Aortic Root Diameter MM 3.2 cm LA Systolic Diameter MM 4.7 cm LA Ao Ratio MM 1.5 AV Cusp Separation MM 1.0 cm DOPPLER AV Peak Velocity 224.1 cm/s AV Peak Gradient 20.1 mmHg AV Mean Velocity 195.2 cm/s AV Mean Gradient 17.9 mmHg AV Velocity Time Integral 57.6 cm LVOT Peak Velocity 95.7 cm/s LVOT Peak Gradient 3.7 mmHg LVOT Velocity Time Integral 13.1 cm LVOT Stroke Volume 37.6 cm??? LVOT Stroke Volume Index 20.0 ml/m??? LVOT Cardiac Index 2033.6 cm???/min???m??? AV Area Cont Eq vti 0.7 cm??? AV Area Cont Eq pk 1.2 cm??? MV Area PHT 4.4 cm??? Mitral E Point Velocity 107.9 cm/s Mitral A Point Velocity 221.7 cm/s Mitral E to A Ratio 0.5 MV Deceleration Time 173.0 ms TR Peak Velocity 265.5 cm/s TR Peak Gradient 28.2 mmHg FINDINGS Left Ventricle Left ventricular ejection fraction is estimated at 60-65%. Abnormal septal motion consistent with a right ventricle pacemaker. No obvious regional wall motion abnormalities. Left ventricular cavity size normal. Left ventricular wall thickness normal. Right Ventricle Moderate right ventricular dilatation. Right ventricular systolic pressure within normal limits. Right Atrium Moderate right atrial dilatation. Catheter/pacemaker wire in the right atrial cavity. Left Atrium Mildly increased left atrial diameter. Mildly increased left atrial volume. Mildly increased left atrial area. Mitral Valve Moderate mitral stenosis MV mean PG 6.49 mmHg. Trace mitral regurgitation. Mitral valve thickened. Severe mitral annular calcification. Aortic Valve Trileaflet aortic valve. Mild aortic stenosis with a peak gradient of 20 mmHg and a mean gradient of 18mmHg. Tricuspid Valve Annular dilatation of the tricuspid valve. Mild tricuspid regurgitation. No tricuspid stenosis. Pulmonic Valve Structurally normal pulmonic valve. Trace pulmonic regurgitation. No pulmonic stenosis. Pericardium No pericardial or pleural effusion. Aorta Normal size aortic root and proximal ascending aorta. CONCLUSIONS Diagnosis: Weakness, assessment of LV function Hyperdynamic LV function Enlarged right ventricle and right atrium Mild aortic stenosis Moderate mitral stenosis secondary to dense calcification of the annulus Previewed by: Dr. Mejia Rose MD (Electronically Signed) Final Date: 25 October 2024 19:29
[2024-10-25] MEDS: DOCUSATE 100 MG CAP PO SCH (20:36)
[2024-10-25] MEDS ORDERED: BUMETANIDE 1 MG TAB PO SCH (21:00)
--- NOTE | 2024-10-26 07:33 | P.CRDCN ---
History of Present Illness Consult date: 10/25/24 Reason for Consult (text): Elevated troponin History of present illness: This is a 78-year-old male patient of Dr. 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 We have been asked to evaluate the patient for elevated troponins. Patient presented to the hospital due to creased appetite, confusion and weakness. There was also concern that there was blood in the patient's urine. Patient denies having chest pain or shortness of breath. Patient does state that he had some dizziness for couple hours. Patient appears to be somewhat confused. Blood pressure 146/94, heart rate 94, pulse ox 97% on room air. Patient is afebrile. -EKG: Paced rhythm. -Chest x-ray: Mild cardiomegaly without acute process -Laboratory studies: WBC 16.5, hemoglobin 14.6, sed rate 91. BUN 35 creatinine 1.21. Magnesium 2.1. AST 117, ALT 54, alkaline phosphatase 186. Troponin 0.035 and 0.032. Procalcitonin 0.26. Cepheid viral panel negative. -Home cardiac medications: Eliquis 5 mg twice daily, Bumex 2 mg in the morning and 1 mg at supper, also on levothyroxine. -Echocardiogram reveals EF of 60 to 65%, hyperdynamic LV function, enlarged right ventricle and right atrium, mild aortic stenosis, moderate mitral stenosis secondary to dense calcification of the annulus. Review Of Systems: At the time of my exam: CONSTITUTIONAL: Denies fever or chills. HEENT: Denies blurred vision, vision changes, or eye pain. Denies hemoptysis CARDIOVASCULAR: Denies chest pain. Denies orthopnea. Denies PND. Denies palpitations RESPIRATORY: Denies shortness of breath. GASTROINTESTINAL: Denies abdominal pain. Denies nausea or vomiting. HEMATOLOGIC: Denies bleeding disorders. GENITOURINARY: Denies any blood in urine. SKIN: Denies puritis. Denies rash. Physical examination: Gen: This is a 78-year-old male in no acute respiratory distress. VS: reviewed HEENT: Head is atraumatic, normocephalic. Pupils equal, round. Sclerae is anicteric. Dry mucous membranes. NECK: Supple. No JVD. LUNGS: Clear to auscultation. No wheezes or rhonchi. No intercostal retractions. HEART: Regular rate and rhythm. No murmur. ABDOMEN: Soft No tenderness. EXTREMITIES: No pedal edema. No calf tenderness. NEUROLOGICAL: Patient is awake, alert and oriented to person. Assessment: Elevated troponin Generalized weakness Metabolic encephalopathy Dehydration Hypertension Paroxysmal atrial fibrillation History of third-degree heart block status post dual-chamber permanent pacemaker Plan: Resume patient's home cardiac medications with the following changes Decrease Bumex 1 mg once daily Add metoprolol succinate 25 mg daily Obtain repeat troponin Further recommendations to follow based upon clinical course Thank you kindly for this consultation. Nurse practitioner note has been reviewed, I agree with documented findings and plan of care. Patient was seen and examined. Past Medical History Past Medical History: Hyperlipidemia, Thyroid Disorder Additional Past Medical History / Comment(s): ventral hernia History of Any Multi-Drug Resistant Organisms: None Reported Past Surgical History: Unable to Obtain, Pacemaker Additional Past Surgical History / Comment(s): abd, 1/2 stomach removed, peg tube Past Anesthesia/Blood Transfusion Reactions: Unable to Obtain Type of Cardiac Device: Permanent Pacemaker Device Placement Date:: unknown Past Psychological History: No Psychological Hx Reported Smoking Status: Never smoker Past Alcohol Use History: None Reported Past Drug Use History: None Reported Medications and Allergies Home Medications Medication Instructions Recorded Confirmed Type Levothyroxine Sodium [Synthroid] 100 mcg PO DAILY@0800 tab 10/01/20 10/25/24 Rx Apixaban [Eliquis] 5 mg PO BID 10/25/24 10/25/24 History Bumetanide [BUMEX] 2 mg PO DAILY@0800 10/25/24 10/25/24 History Bumetanide [Bumex] 1 mg PO PC-SUPPER 10/25/24 10/25/24 History Allergies Allergy/AdvReac Type Severity Reaction Status Date / Time cephalexin [From Keflex] Allergy Rash/Hives Verified 10/25/24 07:41 Penicillins Allergy Anaphylaxis Verified 10/25/24 07:41 Physical Exam Vitals: Vital Signs Temp Pulse Pulse Resp BP BP Pulse Ox 10/25/24 11:03 97.8 F 94 17 146/94 97 10/25/24 07:55 98.2 F 81 18 101/68 99 10/25/24 03:47 98.0 F 103 H 18 131/73 96 10/25/24 01:36 101 H 18 10/24/24 22:44 98.6 F 101 H 18 130/89 100 10/24/24 22:08 98.1 F 97 20 121/75 97 10/24/24 20:11 98.4 F 82 18 112/61 100 10/24/24 16:02 87 17 110/80 97 10/24/24 12:04 98.8 F 73 18 114/75 100 Intake and Output 10/24/24 10/25/24 10/25/24 22:59 06:59 14:59 Intake Total 540 Output Total 0 200 Balance 0 -200 540 Intake: Oral 540 Output: Urine 0 200 Other: Voiding Method Urinal Urinal # Voids 1 Weight 78.925 kg 71 kg Results 10/24/24 13:25 10/24/24 13:25 Cardiac Enzymes 10/24/24 10/24/24 10/25/24 Range/Units 13:25 13:25 10:12 AST 117 H (17-59) U/L Troponin I 0.035 H* 0.032 (0.000-0.034) ng/mL Coagulation 10/24/24 Range/Units 13:25 PT 11.4 (10.0-12.5) sec APTT 24.3 (22.0-30.0) sec CBC 10/24/24 Range/Units 13:25 WBC 16.5 H (3.8-10.6) k/uL RBC 4.73 (4.30-5.90) m/uL Hgb 14.6 (13.0-17.5) gm/dL Hct 44.9 (39.0-53.0) % Plt Count 513 H (150-450) k/uL Comprehensive Metabolic Panel 10/24/24 Range/Units 13:25 Sodium 144 (137-145) mmol/L Potassium 4.9 (3.5-5.1) mmol/L Chloride 103 (98-107) mmol/L Carbon Dioxide 21 L (22-30) mmol/L BUN 35 H (9-20) mg/dL Creatinine 1.21 (0.66-1.25) mg/dL Glucose 118 H (74-99) mg/dL Calcium 9.7 (8.4-10.2) mg/dL AST 117 H (17-59) U/L ALT 54 H (4-49) U/L Alkaline Phosphatase 186 H (38-126) U/L Total Protein 8.3 H (6.3-8.2) g/dL Albumin 4.1 (3.5-5.0) g/dL Current Medications Generic Name Dose Route Start Last Admin Trade Name Freq PRN Reason Stop Dose Admin Acetaminophen 650 mg 10/24/24 18:02 Acetaminophen Tab 325 Mg Tab PO Q6HR PRN Mild Pain or Fever > 100.5 Al Hydroxide/Mg Hydroxide 30 ml 10/25/24 13:00 Mag Hydrox/Al Hydrox/Simeth 30 Ml Cup PO QID STEPHAN Albuterol/Ipratropium 3 ml 10/25/24 10:06 Ipratropium-Albuterol 3 Ml Neb INHALATION RT-QID PRN Shortness Of Breath Or Wheezing Benzocaine/Menthol 1 each 10/25/24 10:06 Benzocaine/Menthol Lozeng 1 Each Lozenge MUCOUS MEM Q4HR PRN Sore Throat Bumetanide 1 mg 10/25/24 21:00 Bumetanide 1 Mg Tab PO BID [facility] Docusate Sodium 100 mg 10/25/24 21:00 Docusate 100 Mg Cap PO BID [facility] Hydromorphone HCl 0.5 mg 10/24/24 18:02 Hydromorphone 0.5 Mg/0.5 Ml Syringe IVP Q3HR PRN Moderate Pain (Scale 4 to 6) Levothyroxine Sodium 100 mcg 10/26/24 08:00 Levothyroxine 100 Mcg Tab PO DAILY@0800 [facility] Morphine Sulfate 4 mg 10/24/24 18:02 Morphine Sulfate 4 Mg/Ml Syringe IV Q4HR PRN Severe Pain (Scale 7 to 10) Naloxone HCl 0.2 mg 10/24/24 18:02 Naloxone 0.4 Mg/Ml 1 Ml Vial IV Q2M PRN Opioid Reversal Ondansetron HCl 4 mg 10/25/24 10:06 Ondansetron 4 Mg/2 Ml Vial IVP Q6H PRN Nausea Intake and Output 10/24/24 10/25/24 10/25/24 22:59 06:59 14:59 Intake Total 540 Output Total 0 200 Balance 0 -200 540 Intake: Oral 540 Output: Urine 0 200 Other: Voiding Method Urinal Urinal # Voids 1 Weight 78.925 kg 71 kg 10/24/24 13:25 10/24/24 13:25
[2024-10-26 07:57] LABS: Basophils # (A) 0.1 k/uL (0-0.2); Basophils % (A) 1 %; Eosinophils # (A) 0.1 k/uL (0-0.7); Eosinophils % (A) 1 %; HCT 35.2 % (39.0-53.0); Lymphocytes # (A) 1.6 k/uL (1.0-4.8); Lymphocytes % (A) 10 %; MCHC 32.7 g/dL (31.0-37.0); MCV 91.7 fL (80.0-100.0); Mean Platelet Volume 8.8; Monocytes # (A) 1.3 k/uL (0-1.0); Monocytes % (A) 8 %; Neutrophils # (A) 11.9 k/uL (1.3-7.7); Neutrophils % (A) 77 %; Platelet Count 548 k/uL (150-450); RBC 3.84 m/uL (4.30-5.90); WBC 15.5 k/uL (3.8-10.6)
[2024-10-26 08:00] LABS: HGB 11.5 gm/dL (13.0-17.5)
[2024-10-26 08:01] LABS: ALT 93 U/L (4-49); AST 158 U/L (17-59); African American GFR (CKD) 63 (>60 ml/min/1.73 sqM); Alkaline Phosphatase 164 U/L (38-126); Anion Gap 9 mmol/L; Blood Urea Nitrogen 40 mg/dL (9-20); Calcium 8.8 mg/dL (8.4-10.2); Carbon Dioxide 26 mmol/L (22-30); Chloride 102 mmol/L (98-107); Glucose 113 mg/dL (74-99); Non-African American GFR(CKD) 55 (>60 ml/min/1.73 sqM); Potassium 4.2 mmol/L (3.5-5.1); Sodium 137 mmol/L (137-145); Total Bilirubin 1.3 mg/dL (0.2-1.3); Total Protein 6.3 g/dL (6.3-8.2)
[2024-10-26] MEDS: LEVOTHYROXINE 100 MCG TAB PO SCH (08:25)
[2024-10-26] MEDS: BUMETANIDE 1 MG TAB PO SCH (08:26)
[2024-10-26] MEDS: APIXABAN 5 MG TAB PO SCH (10:43)
--- NOTE | 2024-10-26 13:27 | P.PN ---
Subjective Progress Note Date: 10/26/24 patient is 78-year-old gentleman with past medical history significant for hypothyroidism, hyperlipidemia presented the ER because of hematuria and generalized weakness. Most of the history is been taken from EMR according to which patient and patient has been sick for the last couple of weeks with upper respiratory infection. Patient was having symptoms of nasal congestion and generalized weakness. Patient also having cough. There was no complaint of shortness of breath. Patient was having decreased appetite and wants to the patient also confused. They also noticed that he was having some blood in his urine over the last couple of days. There was no complaint of chest pain. There is no complaint of palpitation. Over the last 3 days patient has become very weak and is unable to ambulate. Because of generalized weakness, patient was brought to ER. initial lab work done in the ER showed WB 16.5, hemoglobin 14.6, platelet count 513, sodium 144, potassium 4.9, BUN 35, creatinine 1.21, glucose 118, magnesium 2.2, bilirubin 2.1, AST 117, ALT 54, troponin 0.035 , bilirubin 2.1, AST 117, ALT 54, Influenza A not detected Influenza B not detected RSV not detected COVID-19 not detected UA done showed small amount of blood EKG done in the ER showed heart rate of 103, paced rhythm Chest x-ray done in the ER showed cardiomegaly without acute pulmonary Patient admitted to internal medicine service 10/26. Patient seen and examined. Blood work done showed WBC 15.5, hemoglobin 9.5, platelet count 548, sodium 137, potassium 4.2, BUN 40, creatinine 1.25. Troponin remained flat. REVIEW OF SYSTEMS: CONSTITUTIONAL: No fever, no malaise,. CARDIOVASCULAR: No chest pain, no palpitations, no syncope. PULMONARY: No shortness of breath, no cough, GASTROINTESTINAL: No diarrhea, no nausea, no vomiting, no abdominal pain. NEUROLOGICAL: No headaches, no weakness, PHYSICAL EXAMINATION: GENERAL: The patient is alert and oriented x3, ill looking HEENT: Pupils are round and equally reacting to light. EOMI. No scleral icterus. No conjunctival pallor. Normocephalic, atraumatic. No pharyngeal erythema. No thyromegaly. CARDIOVASCULAR: S1 and S2 present. No murmurs, rubs, or gallops. PULMONARY: Chest is clear to auscultation, no wheezing or crackles. ABDOMEN: Soft, nontender, nondistended, normoactive bowel sounds. No palpable organomegaly. MUSCULOSKELETAL: No joint swelling or deformity. EXTREMITIES: No cyanosis, clubbing, or pedal edema. NEUROLOGICAL: Gross neurological examination did not reveal any focal deficits. SKIN: No rashes. Assessment and plan Generalized weakness Hematuria Elevated LFTs elevated troponins Status post pacemaker placement secondary to complete heart block Monitor vital signs Monitor CBC Monitor CMP Continue telemetry monitoring Troponins remain flat Pro-Handy was normal CRP elevated 35.5 Ultrasound abdomen done showed gallstones, no pericholecystic fluid or thickening seen Cardiology evaluated, recommended decreasing Bumex to 1 mg daily and added Toprol PT OT recommend rehab Labs and medication were reviewed.. Continue same treatment. Continue with symptomatic treatment. Resume home medication. Monitor labs and vitals. DVT and GI prophylaxis. Further recommendations as per clinical course of the patient Dictation was produced using iLive dictation software. please excuse any grammatical, word or spelling errors. Objective - Vital Signs Vital signs: Vital Signs Temp 97.8 F 10/26/24 11:10 Pulse 82 10/26/24 11:10 Resp 17 10/26/24 11:10 BP 102/70 10/26/24 11:10 Pulse Ox 99 10/26/24 11:10 FiO2 Intake & Output 10/25/24 10/26/24 10/26/24 18:59 06:59 18:59 Intake Total 540 240 Output Total 350 300 Balance 190 -300 240 Weight 72 kg Intake: Oral 540 240 Output: Urine 350 300 Other: Voiding Method Urinal Urinal Urinal # Voids 1 - Labs CBC & Chem 7: 10/26/24 06:30 10/26/24 06:30 Labs: Abnormal Lab Results - Last 24 Hours (Table) 10/25/24 10/26/24 10/26/24 Range/Units 10:12 06:30 06:30 WBC 15.5 H (3.8-10.6) k/uL RBC 3.84 L (4.30-5.90) m/uL Hgb 11.5 L D (13.0-17.5) gm/dL Hct 35.2 L (39.0-53.0) % Plt Count 548 H (150-450) k/uL Neutrophils # 11.9 H (1.3-7.7) k/uL Monocytes # 1.3 H (0-1.0) k/uL ESR 91 H (0-20) mm/Hr BUN 40 H (9-20) mg/dL Glucose 113 H (74-99) mg/dL AST 158 H (17-59) U/L ALT 93 H (4-49) U/L Alkaline Phosphatase 164 H (38-126) U/L Albumin 3.0 L (3.5-5.0) g/dL
--- NOTE | 2024-10-26 14:05 | P.PN ---
Subjective Progress Note Date: 10/26/24 Reason for Consult (text): Elevated troponin History of present illness: This is a 78-year-old male patient of Dr. 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 We have been asked to evaluate the patient for elevated troponins. Patient presented to the hospital due to creased appetite, confusion and weakness. There was also concern that there was blood in the patient's urine. Patient denies having chest pain or shortness of breath. Patient does state that he had some dizziness for couple hours. Patient appears to be somewhat confused. Blood pressure 146/94, heart rate 94, pulse ox 97% on room air. Patient is afebrile. -EKG: Paced rhythm. -Chest x-ray: Mild cardiomegaly without acute process -Laboratory studies: WBC 16.5, hemoglobin 14.6, sed rate 91. BUN 35 creatinine 1.21. Magnesium 2.1. AST 117, ALT 54, alkaline phosphatase 186. Troponin 0.035 and 0.032. Procalcitonin 0.26. Cepheid viral panel negative. -Home cardiac medications: Eliquis 5 mg twice daily, Bumex 2 mg in the morning and 1 mg at supper, also on levothyroxine. -Echocardiogram reveals EF of 60 to 65%, hyperdynamic LV function, enlarged ri ght ventricle and right atrium, mild aortic stenosis, moderate mitral stenosis secondary to dense calcification of the annulus. 2 Seen and examined. Third troponin is 0.023. Patient has no new concerns. No chest pain no shortness of breath. NSTEMI has been ruled out. Echocardiogram reveals hyperdynamic LV function, enlarged right ventricle and right atrium, mild aortic stenosis, moderate mitral stenosis secondary to dense calcification of the annulus. Physical examination: Gen: This is a 78-year-old male in no acute respiratory distress. VS: reviewed HEENT: Head is atraumatic, normocephalic. Pupils equal, round. Sclerae is anicteric. Dry mucous membranes. NECK: Supple. No JVD. LUNGS: Clear to auscultation. No wheezes or rhonchi. No intercostal retractions. HEART: Regular rate and rhythm. No murmur. ABDOMEN: Soft No tenderness. EXTREMITIES: No pedal edema. No calf tenderness. NEUROLOGICAL: Patient is awake, alert and oriented to person. Assessment: Elevated troponin, NSTEMI has been ruled out Generalized weakness Metabolic encephalopathy Dehydration Hypertension Paroxysmal atrial fibrillation History of third-degree heart block status post dual-chamber permanent pacemaker Plan: Continue patient's home cardiac medications with the following changes Decrease Bumex 1 mg once daily Add metoprolol succinate 25 mg daily No further cardiac workup is warranted at this time. Cardiology will sign off this case and follow on an as-needed basis. Please reconsult for any new concerns. Patient may follow-up in the office in one to 2 weeks. Nurse practitioner note has been reviewed, I agree with documented findings and plan of care. Patient was seen and examined. Objective - Vital Signs Vital signs: Vital Signs Temp 97.4 F L 10/26/24 07:33 Pulse 86 10/26/24 07:33 Resp 18 10/26/24 07:33 BP 115/68 10/26/24 07:33 Pulse Ox 98 10/26/24 07:33 FiO2 Intake & Output 10/25/24 10/26/24 10/26/24 18:59 06:59 18:59 Intake Total 540 240 Output Total 350 300 Balance 190 -300 240 Weight 72 kg Intake: Oral 540 240 Output: Urine 350 300 Other: Voiding Method Urinal Urinal # Voids 1 - Labs CBC & Chem 7: 10/26/24 06:30 10/26/24 06:30 Labs: Abnormal Lab Results - Last 24 Hours (Table) 10/25/24 10/25/24 10/26/24 Range/Units 10:12 10:12 06:30 WBC 15.5 H (3.8-10.6) k/uL RBC 3.84 L (4.30-5.90) m/uL Hgb 11.5 L D (13.0-17.5) gm/dL Hct 35.2 L (39.0-53.0) % Plt Count 548 H (150-450) k/uL Neutrophils # 11.9 H (1.3-7.7) k/uL Monocytes # 1.3 H (0-1.0) k/uL ESR 91 H (0-20) mm/Hr BUN (9-20) mg/dL Glucose (74-99) mg/dL AST (17-59) U/L ALT (4-49) U/L Alkaline Phosphatase (38-126) U/L C-Reactive Protein 35.5 H (<1.0) mg/dL Albumin (3.5-5.0) g/dL 10/26/24 Range/Units 06:30 WBC (3.8-10.6) k/uL RBC (4.30-5.90) m/uL Hgb (13.0-17.5) gm/dL Hct (39.0-53.0) % Plt Count (150-450) k/uL Neutrophils # (1.3-7.7) k/uL Monocytes # (0-1.0) k/uL ESR (0-20) mm/Hr BUN 40 H (9-20) mg/dL Glucose 113 H (74-99) mg/dL AST 158 H (17-59) U/L ALT 93 H (4-49) U/L Alkaline Phosphatase 164 H (38-126) U/L C-Reactive Protein (<1.0) mg/dL Albumin 3.0 L (3.5-5.0) g/dL
[2024-10-27 10:36] LABS: Basophils # (A) 0.1 k/uL (0-0.2); Basophils % (A) 1 %; Eosinophils # (A) 0.1 k/uL (0-0.7); Eosinophils % (A) 1 %; HCT 36.2 % (39.0-53.0); HGB 11.8 gm/dL (13.0-17.5); Lymphocytes # (A) 1.2 k/uL (1.0-4.8); Lymphocytes % (A) 6 %; MCH 30.5 pg (25.0-35.0); MCHC 32.7 g/dL (31.0-37.0); MCV 93.3 fL (80.0-100.0); Mean Platelet Volume 8.4; Monocytes # (A) 1.3 k/uL (0-1.0); Monocytes % (A) 7 %; Neutrophils # (A) 15.6 k/uL (1.3-7.7); Neutrophils % (A) 83 %; Platelet Count 565 k/uL (150-450); RBC 3.88 m/uL (4.30-5.90); RDW 13.7 % (11.5-15.5); WBC 18.7 k/uL (3.8-10.6)
--- NOTE | 2024-10-27 10:39 | FL ---
EXAMINATION TYPE: FL barium swallow w video DATE OF EXAM: 10/27/2024 CLINICAL HISTORY: 78 year-old male history of silent aspiration. Previous PEG tube. Here for respirat ory issues. Gurgling at the bedside. Dysphagia. TECHNIQUE: Deglutition study is performed utilizing thin liquid barium, honey and nectar thick liqui d barium, barium thick pudding, and barium coated cracker. Total fluoroscopy time: 3 minutes 12 seconds. Total images: None. Real-time fluoroscopy was provided to speech pathology. Total dose: 674.13 mGycm2. COMPARISON: None. FINDINGS: There is silent aspiration with both thin and nectar liquid consistencies. This resolves with chin tu ck maneuver. Tiny consistency shows some transient penetration probably of some of the mild residuals . No other penetration or aspiration seen. IMPRESSION: Silent aspiration with thin and nectar liquid consistencies that improves with chin tuck maneuver. Please refer to speech therapist notes for further details if necessary. [facility], , 10/27/2024 10:37 AM
[2024-10-27 10:50] LABS: ALT 119 U/L (4-49); AST 225 U/L (17-59); African American GFR (CKD) 69 (>60 ml/min/1.73 sqM); Alkaline Phosphatase 182 U/L (38-126); Anion Gap 15 mmol/L; Blood Urea Nitrogen 37 mg/dL (9-20); Calcium 8.5 mg/dL (8.4-10.2); Carbon Dioxide 25 mmol/L (22-30); Chloride 101 mmol/L (98-107); Glucose 141 mg/dL (74-99); Magnesium 2.1 mg/dL (1.6-2.3); Non-African American GFR(CKD) 60 (>60 ml/min/1.73 sqM); Potassium 3.7 mmol/L (3.5-5.1); Sodium 141 mmol/L (137-145); Total Bilirubin 1.1 mg/dL (0.2-1.3); Total Protein 6.4 g/dL (6.3-8.2)
[2024-10-28 06:39] LABS: Basophils # (A) 0.1 k/uL (0-0.2); Basophils % (A) 1 %; Eosinophils # (A) 0.2 k/uL (0-0.7); Eosinophils % (A) 1 %; HCT 34.8 % (39.0-53.0); HGB 11.6 gm/dL (13.0-17.5); Lymphocytes # (A) 1.4 k/uL (1.0-4.8); Lymphocytes % (A) 7 %; MCH 31.3 pg (25.0-35.0); MCHC 33.4 g/dL (31.0-37.0); MCV 93.7 fL (80.0-100.0); Mean Platelet Volume 8.4; Monocytes # (A) 1.6 k/uL (0-1.0); Monocytes % (A) 8 %; Neutrophils # (A) 15.6 k/uL (1.3-7.7); Neutrophils % (A) 80 %; Platelet Count 499 k/uL (150-450); RBC 3.72 m/uL (4.30-5.90); RDW 13.9 % (11.5-15.5); WBC 19.4 k/uL (3.8-10.6)
[2024-10-28 07:10] LABS: ALT 118 U/L (4-49); AST 188 U/L (17-59); African American GFR (CKD) 67 (>60 ml/min/1.73 sqM); Albumin 2.9 g/dL (3.5-5.0); Alkaline Phosphatase 174 U/L (38-126); Anion Gap 11 mmol/L; Blood Urea Nitrogen 39 mg/dL (9-20); Calcium 8.7 mg/dL (8.4-10.2); Carbon Dioxide 26 mmol/L (22-30); Chloride 103 mmol/L (98-107); Glucose 118 mg/dL (74-99); Magnesium 2.3 mg/dL (1.6-2.3); Non-African American GFR(CKD) 58 (>60 ml/min/1.73 sqM); Potassium 3.7 mmol/L (3.5-5.1); Sodium 140 mmol/L (137-145); Total Bilirubin 1.1 mg/dL (0.2-1.3); Total Protein 6.4 g/dL (6.3-8.2)
[2024-10-28] MEDS ORDERED: QUEtiapine 25 MG TAB PO PRN (07:33)
--- NOTE | 2024-10-28 07:42 | P.PN ---
Subjective Progress Note Date: 10/27/24 patient is 78-year-old gentleman with past medical history significant for hypothyroidism, hyperlipidemia presented the ER because of hematuria and generalized weakness. Most of the history is been taken from EMR according to which patient and patient has been sick for the last couple of weeks with upper respiratory infection. Patient was having symptoms of nasal congestion and generalized weakness. Patient also having cough. There was no complaint of shortness of breath. Patient was having decreased appetite and wants to the patient also confused. They also noticed that he was having some blood in his urine over the last couple of days. There was no complaint of chest pain. There is no complaint of palpitation. Over the last 3 days patient has become very weak and is unable to ambulate. Because of generalized weakness, patient was brought to ER. initial lab work done in the ER showed WB 16.5, hemoglobin 14.6, platelet count 513, sodium 144, potassium 4.9, BUN 35, creatinine 1.21, glucose 118, magnesium 2.2, bilirubin 2.1, AST 117, ALT 54, troponin 0.035 , bilirubin 2.1, AST 117, ALT 54, Influenza A not detected Influenza B not detected RSV not detected COVID-19 not detected UA done showed small amount of blood EKG done in the ER showed heart rate of 103, paced rhythm Chest x-ray done in the ER showed cardiomegaly without acute pulmonary Patient admitted to internal medicine service 10/26. Patient seen and examined. Blood work done showed WBC 15.5, hemoglobin 9.5, platelet count 548, sodium 137, potassium 4.2, BUN 40, creatinine 1.25. Troponin remained flat. 10/27/2024 Patient is seen and evaluated in follow-up today has been evaluated by cardiology and NSTEMI ruled out recommending outpatient follow-up and has signed off of the case. Patient with an elevated white count with no fever although is having cough and underwent modified barium swallow showing that patient is aspirating. Patient has likely been aspirating for quite some time and re commends chin tuck and thin liquids. Strongly recommend aspiration precautions with supervision with meals and head of the bed elevated 30 to 45 degrees at all times. 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 Patient is extremely weak and somewhat confused on exam. Will initiate Zosyn, obtain cultures including sputum cultures and procalcitonin and also consult infectious disease with concerns of possible aspiration pneumonia. Repeat chest x-ray in a.m. REVIEW OF SYSTEMS: CONSTITUTIONAL: No fever, no malaise,. CARDIOVASCULAR: No chest pain, no palpitations, no syncope. PULMONARY: No shortness of breath, reports of occasional cough GASTROINTESTINAL: No diarrhea, no nausea, no vomiting, no abdominal pain. NEUROLOGICAL: No headaches, reports of feeling generally weakness PHYSICAL EXAMINATION: GENERAL: The patient is alert and oriented x 2, intermittently confused, ill looking, elderly appearing, thin built HEENT: Pupils are round and equally reacting to light. EOMI. No scleral icterus. No conjunctival pallor. Normocephalic, atraumatic. No pharyngeal erythema. No thyromegaly. CARDIOVASCULAR: S1 and S2 present. No murmurs, rubs, or gallops. PULMONARY: Diminished breath sounds bilaterally with some faint expiratory wheezing, no crackles noted. ABDOMEN: Soft, thin, nontender, nondistended, normoactive bowel sounds. No palpable organomegaly. MUSCULOSKELETAL: No joint swelling or deformity. EXTREMITIES: No cyanosis, clubbing, or pedal edema. NEUROLOGICAL: Gross neurological examination did not reveal any focal deficits. Diffusely weak SKIN: No rashes. Assessment: Generalized weakness Hematuria, improved Elevated LFTs elevated troponins, NSTEMI ruled out per cardiology Status post pacemaker placement secondary to complete heart block in 2019 Leukocytosis with concerns of possible aspiration pneumonia Aspiration noted on modified barium swallow GI prophylaxis DVT prophylaxis Full code Plan: Troponins remain flat and evaluated by cardiology with NSTEMI rule out, signing off the case recommending outpatient follow-up Pro-Handy was normal initially although patient is having increased white count and patient remains afebrile. Concerns for aspiration pneumonia Patient underwent modified barium swallow study showing some aspiration rec ommending neck talking and thin liquids. Recommend aspiration precautions with supervision with meals and continue dysphagia diet Will obtain blood cultures as well as sputum cultures and start the patient on Zosyn and consult infectious disease with concerns of aspiration pneumonia. Patient is having some confusion with concerns of hospital-acquired delirium as well as underlying pneumonia as patient reports he is normally alert and oriented x 3 and still works doing taxes and drives. PT/OT therapy following and recommending rehab and patient is agreeable. Patient has been accepted at [facility] and will require insurance authorization. Case management following. CRP was elevated 35.5 Ultrasound abdomen done showed gallstones, no pericholecystic fluid or thickening seen Follow-up on repeat labs in the a.m. and await and appreciate input and recommendations from infectious disease The impression and plan of care has been dictated by Mikala Leung, Nurse Practitioner as directed. Dr. Lane MD I have performed a history and examination and MDM of this patient, discussed the same with the dictator, and agree with the dictator's assessment and plan as written ,documented as a scribe. Based on total visit time, I have performed more than 50% of the visit. Objective - Vital Signs Vital signs: Vital Signs Temp 98.4 F 10/27/24 08:21 Pulse 89 10/27/24 08:21 Resp 16 10/27/24 08:21 BP 111/71 10/27/24 08:21 Pulse Ox 97 10/27/24 08:21 FiO2 Intake & Output 10/26/24 10/27/24 10/27/24 18:59 06:59 18:59 Intake Total 240 10 Output Total 300 Balance 240 -290 Weight 71.5 kg Intake: IV 10 0.9 10 Oral 240 Output: Urine 300 Other: Voiding Method Urinal Urinal Urinal # Voids 1 2 # Bowel Movements 1 - Labs CBC & Chem 7: 10/28/24 06:18 10/28/24 06:18
--- NOTE | 2024-10-28 08:07 | XR ---
EXAMINATION TYPE: XR chest 1V portable DATE OF EXAM: 10/28/2024 7:59 AM COMPARISON: 10/24/2024 CLINICAL INDICATION: Male, 78 years old with history of shortness of breath, TECHNIQUE: XR chest 1V portable view(s) obtained. FINDINGS: The heart size is normal. Pacemaker overlies the left chest. The pulmonary vasculature is normal. The lungs are clear. IMPRESSION: 1. No acute pulmonary process. [facility], , 10/28/2024 8:05 AM
[2024-10-28] MEDS: PIPERACILLIN-TAZOBACTAM 3.375 GM in SODIUM CHLORIDE 0.9% 100 ML IVPB SCH (09:28)
[2024-10-28] MEDS: IPRATROPIUM-ALBUTEROL 3 ML NEB INHALATION SCH (11:35)
--- NOTE | 2024-10-28 17:13 | P.PN ---
Subjective Progress Note Date: 10/28/24 patient is 78-year-old gentleman with past medical history significant for hypothyroidism, hyperlipidemia presented the ER because of hematuria and generalized weakness. Most of the history is been taken from EMR according to which patient and patient has been sick for the last couple of weeks with upper respiratory infection. Patient was having symptoms of nasal congestion and generalized weakness. Patient also having cough. There was no complaint of shortness of breath. Patient was having decreased appetite and wants to the patient also confused. They also noticed that he was having some blood in his urine over the last couple of days. There was no complaint of chest pain. There is no complaint of palpitation. Over the last 3 days patient has become very weak and is unable to ambulate. Because of generalized weakness, patient was brought to ER. initial lab work done in the ER showed WB 16.5, hemoglobin 14.6, platelet count 513, sodium 144, potassium 4.9, BUN 35, creatinine 1.21, glucose 118, magnesium 2.2, bilirubin 2.1, AST 117, ALT 54, troponin 0.035 , bilirubin 2.1, AST 117, ALT 54, Influenza A not detected Influenza B not detected RSV not detected COVID-19 not detected UA done showed small amount of blood EKG done in the ER showed heart rate of 103, paced rhythm Chest x-ray done in the ER showed cardiomegaly without acute pulmonary Patient admitted to internal medicine service 10/26. Patient seen and examined. Blood work done showed WBC 15.5, hemoglobin 9.5, platelet count 548, sodium 137, potassium 4.2, BUN 40, creatinine 1.25. Troponin remained flat. 10/27/2024 Patient is seen and evaluated in follow-up today has been evaluated by cardiology and NSTEMI ruled out recommending outpatient follow-up and has signed off of the case. Patient with an elevated white count with no fever although is having cough and underwent modified barium swallow showing that patient is aspirating. Patient has likely been aspirating for quite some time and frandy mmends chin tuck and thin liquids. Strongly recommend aspiration precautions with supervision with meals and head of the bed elevated 30 to 45 degrees at all times. 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 Patient is extremely weak and somewhat confused on exam. Will initiate Zosyn, obtain cultures including sputum cultures and procalcitonin and also consult infectious disease with concerns of possible aspiration pneumonia. Repeat chest x-ray in a.m. 10/28/2024 Patient is evaluated today in follow up on the medical floor. Echocardiogram done reveals EF 60-65% with mild and moderate MS. Patient underwent barium swallow which reveals aspiration with thin and nectar thick substances which improves with chin tuck method. Chest xray this AM negative. White blood cell count 19. LFTs remain elevated. Procalcitonin level 0.26. REVIEW OF SYSTEMS: CONSTITUTIONAL: No fever, no malaise,. CARDIOVASCULAR: No chest pain, no palpitations, no syncope. PULMONARY: No shortness of breath, reports of occasional cough GASTROINTESTINAL: No diarrhea, no nausea, no vomiting, no abdominal pain. NEUROLOGICAL: No headaches, reports of feeling generally weakness PHYSICAL EXAMINATION: GENERAL: The patient is alert and oriented x 2, intermittently confused, ill looking, elderly appearing, thin built HEENT: Pupils are round and equally reacting to light. EOMI. No scleral icterus. No conjunctival pallor. Normocephalic, atraumatic. No pharyngeal erythema. No thyromegaly. CARDIOVASCULAR: S1 and S2 present. No murmurs, rubs, or gallops. PULMONARY: Diminished breath sounds bilaterally with some faint expiratory wheezing, no crackles noted. ABDOMEN: Soft, thin, nontender, nondistended, normoactive bowel sounds. No palpable organomegaly. MUSCULOSKELETAL: No joint swelling or deformity. EXTREMITIES: No cyanosis, clubbing, or pedal edema. NEUROLOGICAL: Gross neurological examination did not reveal any focal deficits. Diffusely weak SKIN: No rashes. 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 Concerns for aspiration pneumonia Patient underwent modified barium swallow study showing some aspiration recomm ending neck talking and thin liquids. Recommend aspiration precautions with supervision with meals and continue dysphagia diet Will obtain blood cultures as well as sputum cultures and start the patient on Zosyn and consult infectious disease with concerns of aspiration pneumonia. Patient is having some confusion with concerns of hospital-acquired delirium as well as underlying pneumonia as patient reports he is normally alert and oriented x 3 and still works doing taxes and drives. PT/OT therapy following and recommending rehab and patient is agreeable. Patient has been accepted at [facility] and will require insurance authorization. Case management following. CRP was elevated 35.5 Ultrasound abdomen done showed gallstones, no pericholecystic fluid or thickening seen. Consult general surgery as LFTs remain elevated. Follow-up on repeat labs in the a.m. and await and appreciate input and recommendations from infectious disease Discharge to [facility] on Thursday at the earliest The impression and plan of care has been dictated by Digna Roland, Nurse Practitioner as directed. Dr. Lane MD I have performed a history and examination and MDM of this patient, discussed the same with the dictator, and agree with the dictator's assessment and plan as written ,documented as a scribe. Based on total visit time, I have performed more than 50% of the visit. Objective - Vital Signs Vital signs: Vital Signs Temp 97.3 F L 10/28/24 04:00 Pulse 76 10/28/24 16:00 Resp 16 10/28/24 16:00 BP 117/56 10/28/24 16:00 Pulse Ox 98 10/28/24 16:00 FiO2 Intake & Output 10/27/24 10/28/24 10/28/24 18:59 06:59 18:59 Intake Total 250 30 380 Output Total 300 400 Balance -50 30 -20 Weight 73.5 kg Intake: IV 10 30 20 0.9 10 Invasive Line 1 10 20 20 Oral 240 360 Output: Urine 300 400 Other: Voiding Method Urinal Urinal Urinal # Voids 1 - Labs CBC & Chem 7: 10/28/24 06:18 10/28/24 06:18 Labs: Abnormal Lab Results - Last 24 Hours (Table) 10/28/24 10/28/24 Range/Units 06:18 06:18 WBC 19.4 H (3.8-10.6) k/uL RBC 3.72 L (4.30-5.90) m/uL Hgb 11.6 L (13.0-17.5) gm/dL Hct 34.8 L (39.0-53.0) % Plt Count 499 H (150-450) k/uL Neutrophils # 15.6 H (1.3-7.7) k/uL Monocytes # 1.6 H (0-1.0) k/uL BUN 39 H (9-20) mg/dL Glucose 118 H (74-99) mg/dL AST 188 H (17-59) U/L ALT 118 H (4-49) U/L Alkaline Phosphatase 174 H (38-126) U/L Albumin 2.9 L (3.5-5.0) g/dL Assessment and Plan Time with Patient: Less than 30
--- NOTE | 2024-10-28 21:29 | P.CONS ---
History of Present Illness - Reason for Consult Consult date: 10/28/24 Aspiration pneumonitis Requesting physician: Mikala Leung - Chief Complaint Weakness x few days - History of Present Illness Patient is a 78-year-old male with a past medical history significant for hyperlipidemia hypothyroidism, presenting to the hospital 4 days ago for evaluation of progressive weakness and decreased appetite and apparently did have URI symptoms about 3 weeks prior to being brought into the hospital patient mention has been so weak Build to Stand or Ambulate Because of the Weakness on Presentation to the Hospital Patient Was Afebrile He Did Have a Low-Grade Fever of 99.7 on 10/25/2024 No Fever Have Recorded since Then He Was Tachycardic on Admission That Has Resolved and mildly hypotensive but no need for pressor support not hypoxic patient did have elevated white count which is up to 19.4 today creatinine is 1.19 liver isms are mildly elevated urine has been negative influenza RSV COVID testing has been negative patient did have a chest x-ray mild cardiomegaly without acute pulmonary process also have abdominal bladder ultrasound gall stones are seen is no periprostatic fluid or abnormal wall thickening did have a swallow evaluation with evidence of silent aspiration with thin and nectar liquid consistency patient has been treated with Zosyn with concern for possible aspiration pneumonitis infectious he was consulted for further management of antibiotic therapy Review of Systems Positive point and negatives has been mentioned in the HPI, complete review of systems was performed and all other systems are negative Past Medical History Past Medical History: Hyperlipidemia, Thyroid Disorder Additional Past Medical History / Comment(s): ventral hernia History of Any Multi-Drug Resistant Organisms: None Reported Past Surgical History: Unable to Obtain, Pacemaker Additional Past Surgical History / Comment(s): abd, 1/2 stomach removed, peg tube Past Anesthesia/Blood Transfusion Reactions: Unable to Obtain Type of Cardiac Device: Permanent Pacemaker Device Placement Date:: unknown Past Psychological History: No Psychological Hx Reported Smoking Status: Never smoker Past Alcohol Use History: None Reported Past Drug Use History: None Reported Medications and Allergies Home Medications Medication Instructions Recorded Confirmed Type Levothyroxine Sodium [Synthroid] 100 mcg PO DAILY@0800 tab 10/01/20 10/25/24 Rx Apixaban [Eliquis] 5 mg PO BID 10/25/24 10/25/24 History Bumetanide [BUMEX] 2 mg PO DAILY@0800 10/25/24 10/25/24 History Bumetanide [Bumex] 1 mg PO PC-SUPPER 10/25/24 10/25/24 History Allergies Allergy/AdvReac Type Severity Reaction Status Date / Time cephalexin [From Keflex] Allergy Rash/Hives Verified 10/25/24 07:41 Penicillins Allergy Anaphylaxis Verified 10/25/24 07:41 Physical Exam Vitals: Vital Signs Temp Pulse Resp BP Pulse Ox 10/28/24 08:00 85 16 112/56 98 10/28/24 04:00 97.3 F L 94 16 120/96 98 10/27/24 23:37 98 F 87 16 118/56 97 10/27/24 19:35 97.4 F L 101 H 16 111/64 92 L 10/27/24 15:12 98.3 F 89 16 114/74 96 Intake and Output 10/27/24 10/28/24 10/28/24 22:59 06:59 14:59 Intake Total 250 20 190 Output Total 400 Balance 250 20 -210 Intake: IV 10 20 10 0.9 10 Invasive Line 1 10 10 10 Oral 240 180 Output: Urine 400 Other: Voiding Method Urinal Urinal Urinal Weight 73.5 kg GENERAL DESCRIPTION: Elderly male up in the chair, no distress. No tachypnea or accessory muscle of respiration use. HEENT: Shows Pallor , no scleral icterus. Oral mucous membrane is dry. NECK: Trachea central, no thyromegaly. LUNGS: Unlabored breathing. Decreased breath sound at the base HEART: S1, S2, regular rate and rhythm. No loud murmur ABDOMEN: Soft, no tenderness EXTREMITIES: No edema of feet. SKIN: No rash, no masses palpable. NEUROLOGICAL: The patient is awake, alert, mood and affect normal. Results CBC & Chem 7: 10/28/24 06:18 10/28/24 06:18 Labs: Abnormal Lab Results - Last 24 Hours (Table) 10/28/24 10/28/24 Range/Units 06:18 06:18 WBC 19.4 H (3.8-10.6) k/uL RBC 3.72 L (4.30-5.90) m/uL Hgb 11.6 L (13.0-17.5) gm/dL Hct 34.8 L (39.0-53.0) % Plt Count 499 H (150-450) k/uL Neutrophils # 15.6 H (1.3-7.7) k/uL Monocytes # 1.6 H (0-1.0) k/uL BUN 39 H (9-20) mg/dL Glucose 118 H (74-99) mg/dL AST 188 H (17-59) U/L ALT 118 H (4-49) U/L Alkaline Phosphatase 174 H (38-126) U/L Albumin 2.9 L (3.5-5.0) g/dL Assessment and Plan (1) Leukocytosis Current Visit: Yes Status: Acute Code(s): D72.829 - ELEVATED WHITE BLOOD CELL COUNT, UNSPECIFIED SNOMED Code(s): 864402257 (2) Aspiration pneumonitis Current Visit: Yes Status: Acute Code(s): J69.0 - PNEUMONITIS DUE TO INH ALATION OF FOOD AND VOMIT SNOMED Code(s): 587004049 Plan: 1patient presented to hospital l with generalized weakness no energy which is likely multifactorial patient did have abnormal swallow test however he did have 2 chest x-ray did not show any acute abnormality patient did have elevated liver enzymes and evidence of gallstone although ultrasound did not mention any features of cholecystitis however clinically think of elevated white count is more likely due to gallbladder than aspiration pneumonitis 2-patient has documented penicillin and cephalexin allergy however has tolerated Zosyn without any problem clinically doubt true penicillin allergy 3-General Surgery has been consulted to evaluate for the gallbladder may benefit from CT 4-for now continue with Zosyn while waiting for the workup to be completed We will follow on clinical condition and cultures to further adjust medication if needed Thank you for this consultation we will follow the patient along with you Dictation was produced using [employer] software. please excuse any grammatical, word or spelling errors.
[2024-10-29 07:10] LABS: Basophils # (A) 0.2 k/uL (0-0.2); Basophils % (A) 1 %; Eosinophils # (A) 0.3 k/uL (0-0.7); Eosinophils % (A) 2 %; HCT 33.2 % (39.0-53.0); HGB 10.7 gm/dL (13.0-17.5); Lymphocytes # (A) 1.2 k/uL (1.0-4.8); Lymphocytes % (A) 7 %; MCH 29.9 pg (25.0-35.0); MCHC 32.3 g/dL (31.0-37.0); MCV 92.6 fL (80.0-100.0); Mean Platelet Volume 8.5; Monocytes # (A) 1.5 k/uL (0-1.0); Monocytes % (A) 8 %; Neutrophils # (A) 13.9 k/uL (1.3-7.7); Neutrophils % (A) 79 %; Platelet Count 465 k/uL (150-450); RBC 3.58 m/uL (4.30-5.90); RDW 13.8 % (11.5-15.5); WBC 17.7 k/uL (3.8-10.6)
--- NOTE | 2024-10-29 10:44 | P.GSCN ---
History of Present Illness Consult date: 10/29/24 Reason for Consult: Cholelithiasis and elevated liver function tests History of present illness: This a 78-year-old male who had some complaints of intermittent right upper quadrant pain over the last 12 years. Patient noted to have cholelithiasis and mildly liver enzymes. Past Medical History Past Medical History: Hyperlipidemia, Thyroid Disorder Additional Past Medical History / Comment(s): ventral hernia History of Any Multi-Drug Resistant Organisms: None Reported Past Surgical History: Unable to Obtain, Pacemaker Additional Past Surgical History / Comment(s): abd, 1/2 stomach removed, peg tu be Past Anesthesia/Blood Transfusion Reactions: Unable to Obtain Type of Cardiac Device: Permanent Pacemaker Device Placement Date:: unknown Past Psychological History: No Psychological Hx Reported Smoking Status: Never smoker Past Alcohol Use History: None Reported Past Drug Use History: None Reported Medications and Allergies Home Medications Medication Instructions Recorded Confirmed Type Levothyroxine Sodium [Synthroid] 100 mcg PO DAILY@0800 tab 10/01/20 10/25/24 Rx Apixaban [Eliquis] 5 mg PO BID 10/25/24 10/25/24 History Bumetanide [BUMEX] 2 mg PO DAILY@0800 10/25/24 10/25/24 History Bumetanide [Bumex] 1 mg PO PC-SUPPER 10/25/24 10/25/24 History Allergies Allergy/AdvReac Type Severity Reaction Status Date / Time cephalexin [From Keflex] Allergy Rash/Hives Verified 10/25/24 07:41 Penicillins Allergy Anaphylaxis Verified 10/25/24 07:41 Surgical - Exam Vital Signs Temp Pulse Resp BP Pulse Ox 98.8 F 73 18 114/75 100 10/24/24 12:04 10/24/24 12:04 10/24/24 12:04 10/24/24 12:04 10/24/24 12:04 - General well developed, well nourished, no distress - Eyes PERRL - ENT normal pinna - Neck no masses - Respiratory normal expansion - Cardiovascular Rhythm: regular - Abdomen Abdomen: soft, non tender Results - Labs 10/29/24 06:26 10/28/24 06:18 Abnormal Lab Results - Last 24 Hours (Table) 10/29/24 Range/Units 06:26 WBC 17.7 H (3.8-10.6) k/uL RBC 3.58 L (4.30-5.90) m/uL Hgb 10.7 L (13.0-17.5) gm/dL Hct 33.2 L (39.0-53.0) % Plt Count 465 H (150-450) k/uL Neutrophils # 13.9 H (1.3-7.7) k/uL Monocytes # 1.5 H (0-1.0) k/uL - Imaging US - abdomen: report reviewed (Cholelithiasis) Assessment and Plan Assessment: Symptomatic cholelithiasis. Patient be scheduled for laparoscopic cholecystectomy when stable.
--- NOTE | 2024-10-29 12:08 | P.PN ---
Subjective Progress Note Date: 10/29/24 Principal diagnosis: Reason for follow-up is leukocytosis Patient is a 78-year-old male with a past medical history significant for hyperlipidemia hypothyroidism, presenting to the hospital for evaluation of progressive weakness and decreased appetite workup did shows evidence of elevated white count ultrasound with a gallstone but did not mention any cholecystitis however he did have elevated liver enzymes and there was concern for possible aspiration pneumonitis prompted this consultation. On today's evaluation that is 10/29/2024, patient did not have any fever and denies any chills, patient is breathing comfortably on room air, patient with no chest pain or cough patient did not have any abdominal pain nausea vomiting or any loose stools. Patient white count is down to 17.7 Pro-Handy 0.26 Objective - Vital Signs Vital signs: Vital Signs Temp 98.4 F 10/29/24 08:30 Pulse 84 10/29/24 08:39 Resp 16 10/29/24 08:30 BP 101/64 10/29/24 08:30 Pulse Ox 100 10/29/24 08:30 FiO2 Intake & Output 10/28/24 10/29/24 10/29/24 18:59 06:59 18:59 Intake Total 380 20 190 Output Total 400 350 Balance -20 -330 190 Weight 75 kg Intake: IV 20 20 10 Invasive Line 1 20 10 Invasive Line 2 10 10 Oral 360 180 Output: Urine 400 350 Other: Voiding Method Urinal Urinal Urinal # Bowel Movements 1 - Exam GENERAL DESCRIPTION: An elderly male lying in bed in no distress RESPIRATORY SYSTEM: Unlabored breathing , decreased breath sounds at bases HEART: S1 S2 regular rate and rhythm , ABDOMEN: Soft , no tenderness EXTREMITIES: No edema feet - Labs CBC & Chem 7: 10/29/24 06:26 10/28/24 06:18 Labs: Abnormal Lab Results - Last 24 Hours (Table) 10/29/24 Range/Units 06:26 WBC 17.7 H (3.8-10.6) k/uL RBC 3.58 L (4.30-5.90) m/uL Hgb 10.7 L (13.0-17.5) gm/dL Hct 33.2 L (39.0-53.0) % Plt Count 465 H (150-450) k/uL Neutrophils # 13.9 H (1.3-7.7) k/uL Monocytes # 1.5 H (0-1.0) k/uL Assessment and Plan (1) Leukocytosis Current Visit: Yes Status: Acute Code(s): D72.829 - ELEVATED WHITE BLOOD CELL COUNT, UNSPECIFIED SNOMED Code(s): 497045567 (2) Aspiration pneumonitis Current Visit: Yes Status: Acute Code(s): J69.0 - PNEUMONITIS DUE TO INHALATION OF FOOD AND VOMIT SNOMED Code(s): 370112518 Plan: 1patient presented to hospital l with generalized weakness no energy which is likely multifactorial patient did have abnormal swallow test however he did have 2 chest x-ray did not show any acute abnormality patient did have elevated liver enzymes and evidence of gallstone although ultrasound did not mention any features of cholecystitis however clinically think of elevated white count is more likely due to gallbladder than aspiration pneumonitis 2-patient has documented penicillin and cephalexin allergy however has tolerated Zosyn without any problem clinically doubt true penicillin allergy 3-General Surgery has seen the patient recommending cholecystectomy when stable 4-patient white count is trending down to continue with Zosyn and monitor clinical course closely Dictation was produced using [employer] dictation software. please excuse any grammatical, word or spelling errors. Time with Patient: Less than 30
--- NOTE | 2024-10-29 19:54 | P.PN ---
Subjective Progress Note Date: 10/29/24 patient is 78-year-old gentleman with past medical history significant for hypothyroidism, hyperlipidemia presented the ER because of hematuria and generalized weakness. Most of the history is been taken from EMR according to which patient and patient has been sick for the last couple of weeks with upper respiratory infection. Patient was having symptoms of nasal congestion and generalized weakness. Patient also having cough. There was no complaint of shortness of breath. Patient was having decreased appetite and wants to the patient also confused. They also noticed that he was having some blood in his urine over the last couple of days. There was no complaint of chest pain. There is no complaint of palpitation. Over the last 3 days patient has become very weak and is unable to ambulate. Because of generalized weakness, patient was brought to ER. initial lab work done in the ER showed WB 16.5, hemoglobin 14.6, platelet count 513, sodium 144, potassium 4.9, BUN 35, creatinine 1.21, glucose 118, magnesium 2.2, bilirubin 2.1, AST 117, ALT 54, troponin 0.035 , bilirubin 2.1, AST 117, ALT 54, Influenza A not detected Influenza B not detected RSV not detected COVID-19 not detected UA done showed small amount of blood EKG done in the ER showed heart rate of 103, paced rhythm Chest x-ray done in the ER showed cardiomegaly without acute pulmonary Patient admitted to internal medicine service 10/26. Patient seen and examined. Blood work done showed WBC 15.5, hemoglobin 9.5, platelet count 548, sodium 137, potassium 4.2, BUN 40, creatinine 1.25. Troponin remained flat. 10/27/2024 Patient is seen and evaluated in follow-up today has been evaluated by cardiology and NSTEMI ruled out recommending outpatient follow-up and has signed off of the case. Patient with an elevated white count with no fever although is having cough and underwent modified barium swallow showing that patient is aspirating. Patient has likely been aspirating for quite some time and frandy mmends chin tuck and thin liquids. Strongly recommend aspiration precautions with supervision with meals and head of the bed elevated 30 to 45 degrees at all times. 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 Patient is extremely weak and somewhat confused on exam. Will initiate Zosyn, obtain cultures including sputum cultures and procalcitonin and also consult infectious disease with concerns of possible aspiration pneumonia. Repeat chest x-ray in a.m. 10/28/2024 Patient is evaluated today in follow up on the medical floor. Echocardiogram done reveals EF 60-65% with mild and moderate MS. Patient underwent barium swallow which reveals aspiration with thin and nectar thick substances which improves with chin tuck method. Chest xray this AM negative. White blood cell count 19. LFTs remain elevated. Procalcitonin level 0.26. 10/29/2024 Patient evaluated today in follow up on the stepdown unit and can be downgraded to medical/surgical. Patient tolerating diet. He is more awake and alert today. He continues to report not having any abdominal discomfort. General surgery did recommend cholecystectomy when medical stable however after further discussion with patient he states he has known gallstones for many years and does not want to explore surgical options at this time as he is asymptomatic. Blood culture negative so far. Continues on IV zosyn. WBC down to 17.7 and will repeat labs again in the AM. Patient is pending discharge to [facility] in [place]. REVIEW OF SYSTEMS: CONSTITUTIONAL: No fever, no malaise,. CARDIOVASCULAR: No chest pain, no palpitations, no syncope. PULMONARY: No shortness of breath, reports of occasional cough GASTROINTESTINAL: No diarrhea, no nausea, no vomiting, no abdominal pain. NEUROLOGICAL: No headaches, reports of feeling generally weakness PHYSICAL EXAMINATION: GENERAL: The patient is alert and oriented x 2, intermittently confused, ill looking, elderly appearing, thin built HEENT: Pupils are round and equally reacting to light. EOMI. No scleral icterus. No conjunctival pallor. Normocephalic, atraumatic. No pharyngeal erythema. No thyromegaly. CARDIOVASCULAR: S1 and S2 present. No murmurs, rubs, or gallops. PULMONARY: Diminished breath sounds bilaterally with some faint expiratory wheezing, no crackles noted. ABDOMEN: Soft, thin, nontender, nondistended, normoactive bowel sounds. No palpable organomegaly. Large periumbical abdominal hernia. MUSCULOSKELETAL: No joint swelling or deformity. EXTREMITIES: No cyanosis, clubbing, or pedal edema. NEUROLOGICAL: Gross neurological examination did not reveal any focal deficits. Diffusely weak SKIN: No rashes. 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 Concerns for aspiration pneumonia and patient has been started on IV zosyn. White blood cell count slowly improving. Patient underwent modified barium swallow study showing some aspiration recommending neck talking and thin liquids. 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 His mentation today has improved. Does not want to explore surgical options for the gallstones. PT/OT therapy following and recommending rehab and patient is agreeable. [facility] will require insurance authorization. Case management following. CRP was elevated 35.5 Follow-up on repeat labs in the a.m. and await and appreciate input and recommendations from infectious disease Discharge to [facility] on Thursday at the earliest The impression and plan of care has been dictated by Digna Roland, Nurse Practitioner as directed. Dr. Lane MD I have performed a history and examination and MDM of this patient, discussed the same with the dictator, and agree with the dictator's assessment and plan as written ,documented as a scribe. Based on total visit time, I have performed more than 50% of the visit. Objective - Vital Signs Vital signs: Vital Signs Temp 98.1 F 10/29/24 03:11 Pulse 84 10/29/24 08:39 Resp 17 10/29/24 03:11 BP 96/61 10/29/24 03:11 Pulse Ox 98 10/29/24 03:11 FiO2 Intake & Output 10/28/24 10/29/24 10/29/24 18:59 06:59 18:59 Intake Total 380 20 180 Output Total 400 350 Balance -20 -330 180 Weight 75 kg Intake: IV 20 20 Invasive Line 1 20 10 Invasive Line 2 10 Oral 360 180 Output: Urine 400 350 Other: Voiding Method Urinal Urinal # Bowel Movements 1 - Labs CBC & Chem 7: 10/29/24 06:26 10/28/24 06:18 Labs: Abnormal Lab Results - Last 24 Hours (Table) 10/29/24 Range/Units 06:26 WBC 17.7 H (3.8-10.6) k/uL RBC 3.58 L (4.30-5.90) m/uL Hgb 10.7 L (13.0-17.5) gm/dL Hct 33.2 L (39.0-53.0) % Plt Count 465 H (150-450) k/uL Neutrophils # 13.9 H (1.3-7.7) k/uL Monocytes # 1.5 H (0-1.0) k/uL Assessment and Plan Time with Patient: Less than 30
[2024-10-30 10:10] LABS: ALT 109 U/L (10-49); AST 119 U/L (14-35); Albumin 2.8 g/dL (3.8-4.9); Alkaline Phosphatase 150 U/L (41-126); Blood Urea Nitrogen 23.4 mg/dL (9.0-27.0); Calcium 8.6 mg/dL (8.7-10.3); Carbon Dioxide 27.9 mmol/L (21.6-31.8); Chloride 99 mmol/L (96-109); Globulin 3.5 g/dL (1.6-3.3); Glucose 100 mg/dL (70-110); Potassium 4.4 mmol/L (3.5-5.5); Sodium 139 mmol/L (135-145); Total Bilirubin 0.7 mg/dL (0.3-1.2); Total Protein 6.3 g/dL (6.2-8.2)
[2024-10-30 10:44] LABS: Basophils # (A) 0.1 k/uL (0-0.2); Basophils % (A) 1 %; Eosinophils # (A) 0.5 k/uL (0-0.7); Eosinophils % (A) 3 %; HCT 32.4 % (39.0-53.0); HGB 10.5 gm/dL (13.0-17.5); Hypochromasia Moderate; Lymphocytes # (A) 1.3 k/uL (1.0-4.8); Lymphocytes % (A) 7 %; MCH 30.8 pg (25.0-35.0); MCHC 32.3 g/dL (31.0-37.0); MCV 95.4 fL (80.0-100.0); Mean Platelet Volume 9.1; Monocytes # (A) 1.5 k/uL (0-1.0); Monocytes % (A) 9 %; Neutrophils # (A) 13.6 k/uL (1.3-7.7); Neutrophils % (A) 78 %; Platelet Count 489 k/uL (150-450); RDW 13.9 % (11.5-15.5); WBC 17.5 k/uL (3.8-10.6)
--- NOTE | 2024-10-30 11:47 | P.PN ---
Subjective Progress Note Date: 10/30/24 Patient feels slightly better. On exam vital signs appear stable. Abdomen is soft. Symptomatic cholelithiasis with mildly elevated liver function test. Patient will be scheduled for laparoscopic cholecystectomy when medically stable. Objective - Vital Signs Vital signs: Vital Signs Temp 98.2 F 10/30/24 08:06 Pulse 75 10/30/24 11:39 Resp 18 10/30/24 08:06 BP 100/58 10/30/24 08:06 Pulse Ox 100 10/30/24 08:06 FiO2 Intake & Output 10/29/24 10/30/24 10/30/24 18:59 06:59 18:59 Intake Total 380 Output Total 100 Balance 380 -100 Weight 73 kg Intake: IV 20 Invasive Line 2 20 Oral 360 Output: Urine 100 Other: Voiding Method Urinal Urinal Urinal # Voids 1 2 # Bowel Movements 1 - Labs CBC & Chem 7: 10/30/24 03:49 10/30/24 03:59 Labs: Abnormal Lab Results - Last 24 Hours (Table) 10/30/24 10/30/24 Range/Units 03:49 03:59 WBC 17.5 H (3.8-10.6) k/uL RBC 3.40 L (4.30-5.90) m/uL Hgb 10.5 L (13.0-17.5) gm/dL Hct 32.4 L (39.0-53.0) % Plt Count 489 H (150-450) k/uL Neutrophils # 13.6 H (1.3-7.7) k/uL Monocytes # 1.5 H (0-1.0) k/uL Anion Gap 12.10 H (4.00-12.00) mmol/L Calcium 8.6 L (8.7-10.3) mg/dL AST 119 H (14-35) U/L ALT 109 H (10-49) U/L Alkaline Phosphatase 150 H (41-126) U/L Albumin 2.8 L (3.8-4.9) g/dL Globulin 3.5 H (1.6-3.3) g/dL Albumin/Globulin Ratio 0.80 L (1.60-3.17) Ratio Microbiology - Last 24 Hours (Table) 10/28/24 08:28 Blood Culture - Preliminary Blood
--- NOTE | 2024-10-30 13:29 | P.PN ---
Subjective Progress Note Date: 10/30/24 patient is 78-year-old gentleman with past medical history significant for hypothyroidism, hyperlipidemia presented the ER because of hematuria and generalized weakness. Most of the history is been taken from EMR according to which patient and patient has been sick for the last couple of weeks with upper respiratory infection. Patient was having symptoms of nasal congestion and generalized weakness. Patient also having cough. There was no complaint of shortness of breath. Patient was having decreased appetite and wants to the patient also confused. They also noticed that he was having some blood in his urine over the last couple of days. There was no complaint of chest pain. There is no complaint of palpitation. Over the last 3 days patient has become very weak and is unable to ambulate. Because of generalized weakness, patient was brought to ER. initial lab work done in the ER showed WB 16.5, hemoglobin 14.6, platelet count 513, sodium 144, potassium 4.9, BUN 35, creatinine 1.21, glucose 118, magnesium 2.2, bilirubin 2.1, AST 117, ALT 54, troponin 0.035 , bilirubin 2.1, AST 117, ALT 54, Influenza A not detected Influenza B not detected RSV not detected COVID-19 not detected UA done showed small amount of blood EKG done in the ER showed heart rate of 103, paced rhythm Chest x-ray done in the ER showed cardiomegaly without acute pulmonary Patient admitted to internal medicine service 10/26. Patient seen and examined. Blood work done showed WBC 15.5, hemoglobin 9.5, platelet count 548, sodium 137, potassium 4.2, BUN 40, creatinine 1.25. Troponin remained flat. 10/27/2024 Patient is seen and evaluated in follow-up today has been evaluated by cardiology and NSTEMI ruled out recommending outpatient follow-up and has signed off of the case. Patient with an elevated white count with no fever although is having cough and underwent modified barium swallow showing that patient is aspirating. Patient has likely been aspirating for quite some time and frandy mmends chin tuck and thin liquids. Strongly recommend aspiration precautions with supervision with meals and head of the bed elevated 30 to 45 degrees at all times. 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 Patient is extremely weak and somewhat confused on exam. Will initiate Zosyn, obtain cultures including sputum cultures and procalcitonin and also consult infectious disease with concerns of possible aspiration pneumonia. Repeat chest x-ray in a.m. 10/28/2024 Patient is evaluated today in follow up on the medical floor. Echocardiogram done reveals EF 60-65% with mild and moderate MS. Patient underwent barium swallow which reveals aspiration with thin and nectar thick substances which improves with chin tuck method. Chest xray this AM negative. White blood cell count 19. LFTs remain elevated. Procalcitonin level 0.26. 10/29/2024 Patient evaluated today in follow up on the stepdown unit and can be downgraded to medical/surgical. Patient tolerating diet. He is more awake and alert today. He continues to report not having any abdominal discomfort. General surgery did recommend cholecystectomy when medical stable however after further discussion with patient he states he has known gallstones for many years and does not want to explore surgical options at this time as he is asymptomatic. Blood culture negative so far. Continues on IV zosyn. WBC down to 17.7 and will repeat labs again in the AM. Patient is pending discharge to [facility] in [place]. 10/30/2024 Was evaluated in follow-up on the medical floor. He has no acute complaints at this time. Currently tolerating a dysphagia chopped diet. He continues with strict aspiration precautions and chin tuck with all liquids. His white blood cell count remains elevated at 17.5. LFTs remain elevated. Is not having any abdominal discomfort. REVIEW OF SYSTEMS: CONSTITUTIONAL: No fever, no malaise,. CARDIOVASCULAR: No chest pain, no palpitations, no syncope. PULMONARY: No shortness of breath, reports of occasional cough GASTROINTESTINAL: No diarrhea, no nausea, no vomiting, no abdominal pain. NEUROLOGICAL: No headaches, reports of feeling generally weakness PHYSICAL EXAMINATION: GENERAL: The patient is alert and oriented x 2, intermittently confused, ill looking, elderly appearing, thin built HEENT: Pupils are round and equally reacting to light. EOMI. No scleral icterus. No conjunctival pallor. Normocephalic, atraumatic. No pharyngeal erythema. No thyromegaly. CARDIOVASCULAR: S1 and S2 present. No murmurs, rubs, or gallops. PULMONARY: Diminished breath sounds bilaterally with some faint expiratory wheezing, no crackles noted. ABDOMEN: Soft, thin, nontender, nondistended, normoactive bowel sounds. No palpable organomegaly. Large periumbical abdominal hernia. MUSCULOSKELETAL: No joint swelling or deformity. EXTREMITIES: No cyanosis, clubbing, or pedal edema. NEUROLOGICAL: Gross neurological examination did not reveal any focal deficits. Diffusely weak SKIN: No rashes. 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 Concerns for aspiration pneumonia and patient has been started on IV zosyn. White blood cell count slowly improving. Patient underwent modified barium swallow study showing some aspiration recommending neck talking and thin liquids. 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 His mentation today has improved. Does not want to explore surgical options for the gallstones. PT/OT therapy following and recommending rehab and patient is agreeable. Patient has been accepted at [facility] and will require insurance authorization. Case management following. CRP was elevated 35.5 Follow-up on repeat labs in the a.m. and await and appreciate input and recommendations from infectious disease Discharge to [facility] on Thursday at the earliest The impression and plan of care has been dictated by Digna Roland, Nurse Practitioner as directed. Dr. Lane MD I have performed a history and examination and MDM of this patient, discussed the same with the dictator, and agree with the dictator's assessment and plan as written ,documented as a scribe. Based on total visit time, I have performed more than 50% of the visit. Objective - Vital Signs Vital signs: Vital Signs Temp 97.6 F 10/30/24 01:30 Pulse 78 10/30/24 08:00 Resp 18 10/30/24 01:30 BP 102/61 10/30/24 01:30 Pulse Ox 98 10/30/24 01:30 FiO2 Intake & Output 10/29/24 10/30/24 10/30/24 18:59 06:59 18:59 Intake Total 380 Output Total 100 Balance 380 -100 Weight 73 kg Intake: IV 20 Invasive Line 2 20 Oral 360 Output: Urine 100 Other: Voiding Method Urinal Urinal # Voids 1 2 # Bowel Movements 1 - Labs CBC & Chem 7: 10/30/24 03:49 10/30/24 03:59 Labs: Microbiology - Last 24 Hours (Table) 10/28/24 08:28 Blood Culture - Preliminary Blood Assessment and Plan Time with Patient: Less than 30
[2024-10-30] MEDS: diphenhydrAMINE 25 MG CAP PO STA (15:16)
[2024-10-30] MEDS: HYDROCORTISONE 1% CREAM 30 GM TUBE TOPICAL PRN (17:00)
--- NOTE | 2024-10-30 17:04 | P.PN ---
Subjective Progress Note Date: 10/30/24 Principal diagnosis: Reason for follow-up is leukocytosis Patient is a 78-year-old male with a past medical history significant for hyperlipidemia hypothyroidism, presenting to the hospital for evaluation of progressive weakness and decreased appetite workup did shows evidence of elevated white count ultrasound with a gallstone but did not mention any cholecystitis however he did have elevated liver enzymes and there was concern for possible aspiration pneumonitis prompted this consultation. On today's evaluation that is 10/30/2024, Patient is afebrile patient is currently on room air and denies having any shortness of breath, the patient denies any chest pain or cough, the patient denies any nausea vomiting did not have any abdominal pain and no diarrhea has developed a rash to the back area with some itching but no rash to the front or the thigh. The patient white count is 17.5 creatinine is 1.2 liver enzymes remains to be elevated Objective - Vital Signs Vital signs: Vital Signs Temp 98.2 F 10/30/24 08:06 Pulse 76 10/30/24 11:48 Resp 18 10/30/24 08:06 BP 100/58 10/30/24 08:06 Pulse Ox 100 10/30/24 08:06 FiO2 Intake & Output 10/29/24 10/30/24 10/30/24 18:59 06:59 18:59 Intake Total 380 Output Total 100 Balance 380 -100 Weight 73 kg Intake: IV 20 Invasive Line 2 20 Oral 360 Output: Urine 100 Other: Voiding Method Urinal Urinal Urinal # Voids 1 2 # Bowel Movements 1 - Exam GENERAL DESCRIPTION: An elderly male lying in bed in no distress RESPIRATORY SYSTEM: Unlabored breathing , decreased breath sounds at bases HEART: S1 S2 regular rate and rhythm , ABDOMEN: Soft , no tenderness EXTREMITIES: No edema feet - Labs CBC & Chem 7: 10/30/24 03:49 10/30/24 03:59 Labs: Abnormal Lab Results - Last 24 Hours (Table) 10/30/24 10/30/24 Range/Units 03:49 03:59 WBC 17.5 H (3.8-10.6) k/uL RBC 3.40 L (4.30-5.90) m/uL Hgb 10.5 L (13.0-17.5) gm/dL Hct 32.4 L (39.0-53.0) % Plt Count 489 H (150-450) k/uL Neutrophils # 13.6 H (1.3-7.7) k/uL Monocytes # 1.5 H (0-1.0) k/uL Anion Gap 12.10 H (4.00-12.00) mmol/L Calcium 8.6 L (8.7-10.3) mg/dL AST 119 H (14-35) U/L ALT 109 H (10-49) U/L Alkaline Phosphatase 150 H (41-126) U/L Albumin 2.8 L (3.8-4.9) g/dL Globulin 3.5 H (1.6-3.3) g/dL Albumin/Globulin Ratio 0.80 L (1.60-3.17) Ratio Microbiology - Last 24 Hours (Table) 10/28/24 08:28 Blood Culture - Preliminary Blood Assessment and Plan (1) Leukocytosis Current Visit: Yes Status: Acute Code(s): D72.829 - ELEVATED WHITE BLOOD CELL COUNT, UNSPECIFIED SNOMED Code(s): 832729986 (2) Aspiration pneumonitis Current Visit: Yes Status: Acute Code(s): J69.0 - PNEUMONITIS DUE TO INHALATION OF FOOD AND VOMIT SNOMED Code(s): 310176007 Plan: 1patient presented to hospital l with generalized weakness no energy which is likely multifactorial patient did have abnormal swallow test however he did have 2 chest x-ray did not show any acute abnormality patient did have elevated liver enzymes and evidence of gallstone although ultrasound did not mention any features of cholecystitis however clinically think of elevated white count is more likely due to gallbladder than aspiration pneumonitis 2-patient has documented penicillin and cephalexin allergy however has tolerated Zosyn without any problem clinically doubt true penicillin allergy 3-General Surgery has seen the patient recommending cholecystectomy when stable 4-patient white count is still elevated has developed a rash to the back only clinically doubt related to Zosyn as no rash on the front and the lower extremity was noticed however not entirely excluded keeping in mind elevated whi te count some of it could be inflammatory we will go ahead and discontinue Zosyn and start the patient on Azactam and oral Flagyl pending workup completion Dictation was produced using [employer] dictation software. please excuse any grammatical, word or spelling errors. Time with Patient: Less than 30
[2024-10-30] MEDS: metroNIDAZOLE 500 MG TAB PO SCH (21:13)
[2024-10-30] MEDS: CALAMINE/ZINC OXIDE LOTION 177 ML BTL TOPICAL PRN (21:27)
[2024-10-31] MEDS: AZTREONAM 2 GM in SODIUM CHLORIDE 0.9% 100 ML IVPB SCH (00:25)
[2024-10-31 09:40] LABS: ALT 67 U/L (4-49); AST 66 U/L (17-59); African American GFR (CKD) >90 (>60 ml/min/1.73 sqM); Albumin 2.8 g/dL (3.5-5.0); Albumin/Globulin Ratio 0.8; Alkaline Phosphatase 154 U/L (38-126); Anion Gap 12 mmol/L; Blood Urea Nitrogen 19 mg/dL (9-20); Calcium 8.4 mg/dL (8.4-10.2); Carbon Dioxide 27 mmol/L (22-30); Chloride 96 mmol/L (98-107); Globulin 3.5 g/dL; Glucose 102 mg/dL (74-99); Non-African American GFR(CKD) 80 (>60 ml/min/1.73 sqM); Potassium 3.5 mmol/L (3.5-5.1); Sodium 135 mmol/L (137-145); Total Bilirubin 0.8 mg/dL (0.2-1.3); Total Protein 6.3 g/dL (6.3-8.2)
[2024-10-31 09:47] LABS: ALT 65 U/L (4-49); AST 59 U/L (17-59); African American GFR (CKD) >90 (>60 ml/min/1.73 sqM); Albumin 2.6 g/dL (3.5-5.0); Albumin/Globulin Ratio 0.8; Alkaline Phosphatase 150 U/L (38-126); Anion Gap 8 mmol/L; Blood Urea Nitrogen 18 mg/dL (9-20); Calcium 8.1 mg/dL (8.4-10.2); Carbon Dioxide 29 mmol/L (22-30); Chloride 97 mmol/L (98-107); Globulin 3.2 g/dL; Glucose 136 mg/dL (74-99); Non-African American GFR(CKD) 79 (>60 ml/min/1.73 sqM); Sodium 134 mmol/L (137-145); Total Bilirubin 0.7 mg/dL (0.2-1.3); Total Protein 5.8 g/dL (6.3-8.2)
[2024-10-31 10:16] LABS: Basophils # (M) 0 X 10*3/uL (0.00-0.10); Crenated RBC 2+ (None Seen); Eosinophils # (M) 0.37 X 10*3/uL (0.04-0.35); HCT 34.5 % (39.6-50.0); HGB 11.3 g/dL (13.0-17.0); MCH 30.4 pg (27.0-32.0); MCHC 32.8 g/dL (32.0-37.0); MCV 92.7 FL (80.0-97.0); Metamyelocytes % 3 % (0-0); Myelocytes % 3 % (0-0); NRBC Per 100 WBC 0.12 X 10*3/uL (0.00-0.01); Neutrophils # (M) 14.62 X 10*3/uL (1.80-7.70); Neutrophils % (M) 80 %; Platelet Count 493 X 10*3/uL (140-440); RBC 3.72 X 10*6/uL (4.40-5.60); RDW 14.2 % (11.5-14.5); WBC 18.27 X 10*3/uL (4.50-10.00)
[2024-10-31] MEDS: POTASSIUM CHLORIDE ER 20 MEQ TAB.ER PO SCH (10:28)
[2024-10-31] MEDS: SODIUM CHLORIDE 0.9% 1,000 ML IV SCH (10:31)
--- NOTE | 2024-10-31 12:00 | P.PN ---
Subjective Progress Note Date: 10/31/24 SURGICAL PROGRESS NOTE CHIEF COMPLAINT: Symptomatic cholelithiasis HISTORY OF PRESENT ILLNESS: Patient reports abdominal pain has resolved. He denies any nausea or vomiting. He is tolerating diet. Vital stable. WBC 18 LFTs trending down. Patient also being treated for an aspiration pneumonia. PHYSICAL EXAM: VITAL SIGNS: Reviewed. GENERAL: Well-developed in no acute distress. ABDOMEN: Soft. Nondistended. Nontender. NEUROLOGIC: Alert and oriented. Cranial nerves II through XII grossly intact. ASSESSMENT: 1. Symptomatic cholelithiasis with elevated LFTs. LFTs trending down 2. Aspiration pneumonia PLAN: -Patient's abdominal pain resolved. He is tolerating diet. Patient reporting that he is not interested at surgery at this time but would like to follow-up outpatient with surgeon. 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 Signing provider agrees with the documented findings, assessment, and plan of care. Objective - Vital Signs Vital signs: Vital Signs Temp 97.3 F L 10/31/24 07:47 Pulse 80 10/31/24 08:23 Resp 18 10/31/24 07:47 BP 115/74 10/31/24 07:47 Pulse Ox 99 10/31/24 07:47 FiO2 Intake & Output 10/30/24 10/31/24 10/31/24 18:59 06:59 18:59 Output Total 3 Balance -3 Weight 71.5 kg Output: Urine 3 Other: Voiding Method Urinal Urinal Urinal # Voids 2 3 # Bowel Movements 1 - Labs CBC & Chem 7: 10/31/24 03:25 10/31/24 09:14 Labs: Abnormal Lab Results - Last 24 Hours (Table) 10/31/24 10/31/24 10/31/24 Range/Units 03: 08:36 09:14 WBC 18.27 H (4.50-10.00) X 10*3/uL RBC 3.72 L (4.40-5.60) X 10*6/uL Hgb 11.3 L (13.0-17.0) g/dL Hct 34.5 L (39.6-50.0) % Plt Count 493 H (140-440) X 10*3/uL Neutrophils # (Manual) 14.62 H (1.80-7.70) X 10*3/uL Monocytes # (Manual) 1.10 H (0.20-1.00) X 10*3/uL Eosinophils # (Manual) 0.37 H (0.04-0.35) X 10*3/uL NRBC/100 WBC Diff 0.12 H (0.00-0.01) X 10*3/uL Crenated Cell 2+ A (None Seen) Sodium 135 L 134 L (137-145) mmol/L Potassium 3.0 L (3.5-5.1) mmol/L Chloride 96 L 97 L (98-107) mmol/L Glucose 102 H 136 H (74-99) mg/dL Calcium 8.1 L (8.4-10.2) mg/dL AST 66 H (17-59) U/L ALT 67 H 65 H (4-49) U/L Alkaline Phosphatase 154 H 150 H (38-126) U/L Total Protein 5.8 L (6.3-8.2) g/dL Albumin 2.8 L 2.6 L (3.5-5.0) g/dL Microbiology - Last 24 Hours (Table) 10/28/24 08:28 Blood Culture - Preliminary Blood
--- NOTE | 2024-10-31 18:36 | P.PN ---
Subjective Progress Note Date: 10/31/24 patient is 78-year-old gentleman with past medical history significant for hypothyroidism, hyperlipidemia presented the ER because of hematuria and generalized weakness. Most of the history is been taken from EMR according to which patient and patient has been sick for the last couple of weeks with upper respiratory infection. Patient was having symptoms of nasal congestion and generalized weakness. Patient also having cough. There was no complaint of shortness of breath. Patient was having decreased appetite and wants to the patient also confused. They also noticed that he was having some blood in his urine over the last couple of days. There was no complaint of chest pain. There is no complaint of palpitation. Over the last 3 days patient has become very weak and is unable to ambulate. Because of generalized weakness, patient was brought to ER. initial lab work done in the ER showed WB 16.5, hemoglobin 14.6, platelet count 513, sodium 144, potassium 4.9, BUN 35, creatinine 1.21, glucose 118, magnesium 2.2, bilirubin 2.1, AST 117, ALT 54, troponin 0.035 , bilirubin 2.1, AST 117, ALT 54, Influenza A not detected Influenza B not detected RSV not detected COVID-19 not detected UA done showed small amount of blood EKG done in the ER showed heart rate of 103, paced rhythm Chest x-ray done in the ER showed cardiomegaly without acute pulmonary Patient admitted to internal medicine service 10/26. Patient seen and examined. Blood work done showed WBC 15.5, hemoglobin 9.5, platelet count 548, sodium 137, potassium 4.2, BUN 40, creatinine 1.25. Troponin remained flat. 10/27/2024 Patient is seen and evaluated in follow-up today has been evaluated by cardiology and NSTEMI ruled out recommending outpatient follow-up and has signed off of the case. Patient with an elevated white count with no fever although is having cough and underwent modified barium swallow showing that patient is aspirating. Patient has likely been aspirating for quite some time and frandy mmends chin tuck and thin liquids. Strongly recommend aspiration precautions with supervision with meals and head of the bed elevated 30 to 45 degrees at all times. 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 Patient is extremely weak and somewhat confused on exam. Will initiate Zosyn, obtain cultures including sputum cultures and procalcitonin and also consult infectious disease with concerns of possible aspiration pneumonia. Repeat chest x-ray in a.m. 10/28/2024 Patient is evaluated today in follow up on the medical floor. Echocardiogram done reveals EF 60-65% with mild and moderate MS. Patient underwent barium swallow which reveals aspiration with thin and nectar thick substances which improves with chin tuck method. Chest xray this AM negative. White blood cell count 19. LFTs remain elevated. Procalcitonin level 0.26. 10/29/2024 Patient evaluated today in follow up on the stepdown unit and can be downgraded to medical/surgical. Patient tolerating diet. He is more awake and alert today. He continues to report not having any abdominal discomfort. General surgery did recommend cholecystectomy when medical stable however after further discussion with patient he states he has known gallstones for many years and does not want to explore surgical options at this time as he is asymptomatic. Blood culture negative so far. Continues on IV zosyn. WBC down to 17.7 and will repeat labs again in the AM. Patient is pending discharge to [facility] in [place]. 10/30/2024 Was evaluated in follow-up on the medical floor. He has no acute complaints at this time. Currently tolerating a dysphagia chopped diet. He continues with strict aspiration precautions and chin tuck with all liquids. His white blood cell count remains elevated at 17.5. LFTs remain elevated. Is not having any abdominal discomfort. 10/31/2024 Patient evaluated in follow up on the medical floor. He is resting comfortably in bed. He has been urinating without difficulty bowels have moved. He is not having any abdominal pain currently. LFTs are improving. General surgery following and patient has declined cholecystectomy and will follow up outpatient with general surgery. WBC remains elevated and up to 18 today. Was transitioned to IV aztreonam and oral flagyl as he developed a rash while on zosyn. ID following and feels this may be gallbladder related. 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 When medically stable plans for discharge to [facility]. REVIEW OF SYSTEMS: CONSTITUTIONAL: No fever, no malaise,. CARDIOVASCULAR: No chest pain, no palpitations, no syncope. PULMONARY: No shortness of breath, reports of occasional cough GASTROINTESTINAL: No diarrhea, no nausea, no vomiting, no abdominal pain. NEUROLOGICAL: No headaches, reports of feeling generally weakness PHYSICAL EXAMINATION: GENERAL: The patient is alert and oriented x 2, intermittently confused, ill looking, elderly appearing, thin built HEENT: Pupils are round and equally reacting to light. EOMI. No scleral icterus. No conjunctival pallor. Normocephalic, atraumatic. No pharyngeal erythema. No thyromegaly. CARDIOVASCULAR: S1 and S2 present. No murmurs, rubs, or gallops. PULMONARY: Diminished breath sounds bilaterally with some faint expiratory wheezing, no crackles noted. ABDOMEN: Soft, thin, nontender, nondistended, normoactive bowel sounds. No p alpable organomegaly. Large periumbical abdominal hernia. MUSCULOSKELETAL: No joint swelling or deformity. EXTREMITIES: No cyanosis, clubbing, or pedal edema. NEUROLOGICAL: Gross neurological examination did not reveal any focal deficits. Diffusely weak SKIN: No rashes. 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 Concerns for aspiration pneumonia and patient has been started on IV zosyn. White blood cell count slowly improving. Patient underwent modified barium swallow study showing some aspiration recommending neck talking and thin liquids. 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 His mentation today has improved. Does not want to explore surgical options for the gallstones. PT/OT therapy following and recommending rehab and patient is agreeable. Patient has been accepted at [facility] and will require insurance authorization. Case management following. Peer to Peer was completed and insurance is awaiting updated pT notes. Patient had rash while on zosyn and was transitioned to IV aztreonam an oral flagyl. Repeat CBC in the AM as patient continues to have elevated WBC and concerns this may be gallbladder related. CRP was elevated 35.5 Follow-up on repeat labs in the a.m. and await and appreciate input and recommendations from infectious disease Discharge to [facility] when medically stable. The impression and plan of care has been dictated by Digna Roland, Nurse Practitioner as directed. Dr. Lane MD I have performed a history and examination and MDM of this patient, discussed the same with the dictator, and agree with the dictator's assessment and plan as written ,documented as a scribe. Based on total visit time, I have performed more than 50% of the visit. Objective - Vital Signs Vital signs: Vital Signs Temp 97.3 F L 10/31/24 07:47 Pulse 80 10/31/24 08:23 Resp 18 10/31/24 07:47 BP 115/74 10/31/24 07:47 Pulse Ox 99 10/31/24 07:47 FiO2 Intake & Output 10/30/24 10/31/24 10/31/24 18:59 06:59 18:59 Output Total 3 300 Balance -3 -300 Weight 71.5 kg Output: Urine 3 300 Other: Voiding Method Urinal Urinal Urinal # Voids 2 3 # Bowel Movements 1 - Labs CBC & Chem 7: 10/31/24 03:25 10/31/24 14:11 Labs: Abnormal Lab Results - Last 24 Hours (Table) 10/31/24 10/31/24 10/31/24 Range/Units 03:25 08:36 09:14 WBC 18.27 H (4.50-10.00) X 10*3/uL RBC 3.72 L (4.40-5.60) X 10*6/uL Hgb 11.3 L (13.0-17.0) g/dL Hct 34.5 L (39.6-50.0) % Plt Count 493 H (140-440) X 10*3/uL Neutrophils # (Manual) 14.62 H (1.80-7.70) X 10*3/uL Monocytes # (Manual) 1.10 H (0.20-1.00) X 10*3/uL Eosinophils # (Manual) 0.37 H (0.04-0.35) X 10*3/uL NRBC/100 WBC Diff 0.12 H (0.00-0.01) X 10*3/uL Crenated Cell 2+ A (None Seen) Sodium 135 L 134 L (137-145) mmol/L Potassium 3.0 L (3.5-5.1) mmol/L Chloride 96 L 97 L (98-107) mmol/L Glucose 102 H 136 H (74-99) mg/dL Calcium 8.1 L (8.4-10.2) mg/dL AST 66 H (17-59) U/L ALT 67 H 65 H (4-49) U/L Alkaline Phosphatase 154 H 150 H (38-126) U/L Total Protein 5.8 L (6.3-8.2) g/dL Albumin 2.8 L 2.6 L (3.5-5.0) g/dL Microbiology - Last 24 Hours (Table) 10/28/24 08:28 Blood Culture - Preliminary Blood Assessment and Plan Time with Patient: Less than 30
[2024-11-01 08:59] LABS: ALT 62 U/L (10-49); AST 60 U/L (14-35); Albumin 2.6 g/dL (3.8-4.9); Albumin/Globulin Ratio 0.81 Ratio (1.60-3.17); Alkaline Phosphatase 146 U/L (41-126); BUN/Creat Ratio 18.89 Ratio (12.00-20.00); Calcium 8.4 mg/dL (8.7-10.3); Carbon Dioxide 23.7 mmol/L (21.6-31.8); Chloride 105 mmol/L (96-109); Globulin 3.2 g/dL (1.6-3.3); Glucose 87 mg/dL (70-110); Potassium 4.3 mmol/L (3.5-5.5); Sodium 139 mmol/L (135-145); Total Bilirubin 0.4 mg/dL (0.3-1.2); Total Protein 5.8 g/dL (6.2-8.2)
[2024-11-01 09:54] LABS: Acanthocytes 2+ (None Seen); HCT 34.5 % (39.6-50.0); HGB 10.7 g/dL (13.0-17.0); MCH 29.6 pg (27.0-32.0); MCV 95.6 FL (80.0-97.0); Myelocytes % 8 % (0-0); NRBC Per 100 WBC 0 X 10*3/uL (0.00-0.01); Neutrophils # (M) 11.23 X 10*3/uL (1.80-7.70); Neutrophils % (M) 75 %; Platelet Count 504 X 10*3/uL (140-440); Promyelocytes # (M) 0.45 k/uL (0); Promyelocytes % 3 %; RBC 3.61 X 10*6/uL (4.40-5.60); RDW 14.3 % (11.5-14.5); WBC 14.97 X 10*3/uL (4.50-10.00)
--- NOTE | 2024-11-01 13:24 | P.PN ---
Subjective Progress Note Date: 11/01/24 SURGICAL PROGRESS NOTE CHIEF COMPLAINT: Symptomatic cholelithiasis HISTORY OF PRESENT ILLNESS: Patient reports abdominal pain has resolved. He denies any nausea or vomiting. He is tolerating diet. Vital stable. WBC is down from 18-14 Hgb 10.7 LFTs staying about the same PHYSICAL EXAM: VITAL SIGNS: Reviewed. GENERAL: Well-developed in no acute distress. ABDOMEN: Soft. No tenderness right upper quadrant with palpation NEUROLOGIC: Alert and oriented. Cranial nerves II through XII grossly intact. ASSESSMENT: 1. Symptomatic cholelithiasis with elevated LFTs. LFTs trending down 2. Aspiration pneumonia PLAN: -Patient's abdominal pain resolved. He is tolerating diet. Patient reporting that he is not interested at surgery at this time but would like to follow-up outpatient with surgeon. -Patient can be discharge from surgical standpoint with outpatient follow-up -Recommend laparoscopic cholecystectomy outpatient when medically stable -Continue to monitor LFTs while patient remains in the hospital Physician Butt Maker note has been reviewed by physician. Signing provider agrees with the documented findings, assessment, and plan of care. Objective - Vital Signs Vital signs: Vital Signs Temp 97.6 F 11/01/24 06:45 Pulse 81 11/01/24 13:18 Resp 16 11/01/24 13:18 BP 106/68 11/01/24 06:45 Pulse Ox 100 11/01/24 06:45 FiO2 Intake & Output 10/31/24 11/01/24 11/01/24 18:59 06:59 18:59 Output Total 300 Balance -300 Output: Urine 300 Other: Voiding Method Urinal Urinal Urinal # Voids 3 1 # Bowel Movements 2 1 - Labs CBC & Chem 7: 11/01/24 02:44 11/01/24 02:44 Labs: Abnormal Lab Results - Last 24 Hours (Table) 11/01/24 11/01/24 Range/Units 02:44 02:44 WBC 14.97 H (4.50-10.00) X 10*3/uL RBC 3.61 L (4.40-5.60) X 10*6/uL Hgb 10.7 L (13.0-17.0) g/dL Hct 34.5 L (39.6-50.0) % MCHC 31.0 L (32.0-37.0) g/dL Plt Count 504 H (140-440) X 10*3/uL Neutrophils # (Manual) 11.23 H (1.80-7.70) X 10*3/uL Lymphocytes # (Manual) 0.60 L (0.90-5.00) X 10*3/uL Eosinophils # (Manual) 0.60 H (0.04-0.35) X 10*3/uL Basophils # (Manual) 0.30 H (0.00-0.10) X 10*3/uL Acanthocytes (Spur) 2+ A (None Seen) Calcium 8.4 L (8.7-10.3) mg/dL AST 60 H (14-35) U/L ALT 62 H (10-49) U/L Alkaline Phosphatase 146 H (41-126) U/L Total Protein 5.8 L (6.2-8.2) g/dL Albumin 2.6 L (3.8-4.9) g/dL Albumin/Globulin Ratio 0.81 L (1.60-3.17) Ratio Microbiology - Last 24 Hours (Table) 10/28/24 08:28 Blood Culture - Preliminary Blood
--- NOTE | 2024-11-01 16:41 | P.PN ---
Subjective Progress Note Date: 10/31/24 Principal diagnosis: Reason for follow-up is leukocytosis Patient is a 78-year-old male with a past medical history significant for hyperlipidemia hypothyroidism, presenting to the hospital for evaluation of progressive weakness and decreased appetite workup did shows evidence of elevated white count ultrasound with a gallstone but did not mention any cholecystitis however he did have elevated liver enzymes and there was concern for possible aspiration pneumonitis prompted this consultation. On today's evaluation that is 10/31/2024, patient has been afebrile, patient is breathing comfortably and is currently on room air, patient denies having any significant cough no chest pain, patient denies nausea vomiting or diarrhea and no abdominal pain. Patient white count is up to 18.27 today creatinine 0.91 Objective - Vital Signs Vital signs: Vital Signs Temp 97.3 F L 10/31/24 07:47 Pulse 80 10/31/24 08:23 Resp 18 10/31/24 07:47 BP 115/74 10/31/24 07:47 Pulse Ox 99 10/31/24 07:47 FiO2 Intake & Output 10/30/24 10/31/24 10/31/24 18:59 06:59 18:59 Output Total 3 Balance -3 Weight 71.5 kg Output: Urine 3 Other: Voiding Method Urinal Urinal Urinal # Voids 2 3 # Bowel Movements 1 - Exam GENERAL DESCRIPTION: An elderly male lying in bed in no distress RESPIRATORY SYSTEM: Unlabored breathing , decreased breath sounds at bases HEART: S1 S2 regular rate and rhythm , ABDOMEN: Soft , no tenderness EXTREMITIES: No edema feet - Labs CBC & Chem 7: 11/01/24 02:44 11/01/24 02:44 Labs: Abnormal Lab Results - Last 24 Hours (Table) 10/31/24 10/31/24 10/31/24 Range/Units 03:25 08:36 09:14 WBC 18.27 H (4.50-10.00) X 10*3/uL RBC 3.72 L (4.40-5.60) X 10*6/uL Hgb 11.3 L (13.0-17.0) g/dL Hct 34.5 L (39.6-50.0) % Plt Count 493 H (140-440) X 10*3/uL Neutrophils # (Manual) 14.62 H (1.80-7.70) X 10*3/uL Monocytes # (Manual) 1.10 H (0.20-1.00) X 10*3/uL Eosinophils # (Manual) 0.37 H (0.04-0.35) X 10*3/uL NRBC/100 WBC Diff 0.12 H (0.00-0.01) X 10*3/uL Crenated Cell 2+ A (None Seen) Sodium 135 L 134 L (137-145) mmol/L Potassium 3.0 L (3.5-5.1) mmol/L Chloride 96 L 97 L (98-107) mmol/L Glucose 102 H 136 H (74-99) mg/dL Calcium 8.1 L (8.4-10.2) mg/dL AST 66 H (17-59) U/L ALT 67 H 65 H (4-49) U/L Alkaline Phosphatase 154 H 150 H (38-126) U/L Total Protein 5.8 L (6.3-8.2) g/dL Albumin 2.8 L 2.6 L (3.5-5.0) g/dL Microbiology - Last 24 Hours (Table) 10/28/24 08:28 Blood Culture - Preliminary Blood Assessment and Plan (1) Leukocytosis Current Visit: Yes Status: Acute Code(s): D72.829 - ELEVATED WHITE BLOOD CELL COUNT, UNSPECIFIED SNOMED Code(s): 908042701 (2) Aspiration pneumonitis Current Visit: Yes Status: Acute Code(s): J69.0 - PNEUMONITIS DUE TO INHALATION OF FOOD AND VOMIT SNOMED Code(s): 543689882 Plan: 1patient presented to hospital l with generalized weakness no energy which is likely multifactorial patient did have abnormal swallow test however he did have 2 chest x-ray did not show any acute abnormality patient did have elevated liver enzymes and evidence of gallstone although ultrasound did not mention any feat ures of cholecystitis however clinically think of elevated white count is more likely due to gallbladder than aspiration pneumonitis 2-patient has documented penicillin and cephalexin allergy however has tolerated Zosyn without any problem clinically doubt true penicillin allergy 3-General Surgery has seen the patient recommending cholecystectomy when stable 4-patient white count is still elevated has developed a rash to the back only clinically doubt related to Zosyn however that was discussed yesterday patient was started on Azactam and Flagyl white count is still trending up we will monitor closely Dictation was produced using G5 dictation software. please excuse any grammatical, word or spelling errors. Time with Patient: Less than 30
--- NOTE | 2024-11-01 16:42 | P.PN ---
Subjective Progress Note Date: 11/01/24 Principal diagnosis: Reason for follow-up is leukocytosis Patient is a 78-year-old male with a past medical history significant for hyperlipidemia hypothyroidism, presenting to the hospital for evaluation of progressive weakness and decreased appetite workup did shows evidence of elevated white count ultrasound with a gallstone but did not mention any cholecystitis however he did have elevated liver enzymes and there was concern for possible aspiration pneumonitis prompted this consultation. On today's evaluation that is 11/01/2024, Patient is afebrile this morning patient denies having any chest pain shortness of breath or cough, the patient is currently on room air, patient denies any abdominal pain no diarrhea no nausea no vomiting. The patient white count is up to 14.97 creatinine 0.9 Objective - Vital Signs Vital signs: Vital Signs Temp 97.6 F 11/01/24 06:45 Pulse 77 11/01/24 13:26 Resp 16 11/01/24 13:26 BP 106/68 11/01/24 06:45 Pulse Ox 100 11/01/24 06:45 FiO2 Intake & Output 10/31/24 11/01/24 11/01/24 18:59 06:59 18:59 Output Total 300 Balance -300 Output: Urine 300 Other: Voiding Method Urinal Urinal Urinal # Voids 3 1 # Bowel Movements 2 1 - Exam GENERAL DESCRIPTION: An elderly male lying in bed in no distress RESPIRATORY SYSTEM: Unlabored breathing , decreased breath sounds at bases HEART: S1 S2 regular rate and rhythm , ABDOMEN: Soft , no tenderness EXTREMITIES: No edema feet - Labs CBC & Chem 7: 11/01/24 02:44 11/01/24 02:44 Labs: Abnormal Lab Results - Last 24 Hours (Table) 11/01/24 11/01/24 Range/Units 02:44 02:44 WBC 14.97 H (4.50-10.00) X 10*3/uL RBC 3.61 L (4.40-5.60) X 10*6/uL Hgb 10.7 L (13.0-17.0) g/dL Hct 34.5 L (39.6-50.0) % MCHC 31.0 L (32.0-37.0) g/dL Plt Count 504 H (140-440) X 10*3/uL Neutrophils # (Manual) 11.23 H (1.80-7.70) X 10*3/uL Lymphocytes # (Manual) 0.60 L (0.90-5.00) X 10*3/uL Eosinophils # (Manual) 0.60 H (0.04-0.35) X 10*3/uL Basophils # (Manual) 0.30 H (0.00-0.10) X 10*3/uL Acanthocytes (Spur) 2+ A (None Seen) Calcium 8.4 L (8.7-10.3) mg/dL AST 60 H (14-35) U/L ALT 62 H (10-49) U/L Alkaline Phosphatase 146 H (41-126) U/L Total Protein 5.8 L (6.2-8.2) g/dL Albumin 2.6 L (3.8-4.9) g/dL Albumin/Globulin Ratio 0.81 L (1.60-3.17) Ratio Microbiology - Last 24 Hours (Table) 10/28/24 08:28 Blood Culture - Preliminary Blood Assessment and Plan (1) Leukocytosis Current Visit: Yes Status: Acute Code(s): D72.829 - ELEVATED WHITE BLOOD CELL COUNT, UNSPECIFIED SNOMED Code(s): 210545103 (2) Aspiration pneumonitis Current Visit: Yes Status: Acute Code(s): J69.0 - PNEUMONITIS DUE TO INHALATION OF FOOD AND VOMIT SNOMED Code(s): 132147328 (3) Cholecystitis Current Visit: Yes Status: Acute Code(s): K81.9 - CHOLECYSTITIS, UNSPECIFIED SNOMED Code(s): 66831838 Plan: 1patient presented to hospital l with generalized weakness no energy which is likely multifactorial patient did have abnormal swallow test however he did have 2 chest x-ray did not show any acute abnormality patient did have elevated liver enzymes and evidence of gallstone although ultrasound did not mention any features of cholecystitis however clinically think of elevated white count is more likely due to gallbladder than aspiration pneumonitis 2-patient has documented penicillin and cephalexin allergy however has tolerated Zosyn without any problem clinically doubt true penicillin allergy 3-General Surgery has seen the patient recommending cholecystectomy when stable 4-patient white count is trending down currently on n Azactam and Flagyl, will be able to finish therapy with oral Cipro and Flagyl discussed with the admitting team 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 please excuse any grammatical, word or spelling errors. Time with Patient: Less than 30
--- NOTE | 2024-11-02 06:03 | P.PN ---
Subjective Progress Note Date: 11/01/24 patient is 78-year-old gentleman with past medical history significant for hypothyroidism, hyperlipidemia presented the ER because of hematuria and generalized weakness. Most of the history is been taken from EMR according to which patient and patient has been sick for the last couple of weeks with upper respiratory infection. Patient was having symptoms of nasal congestion and generalized weakness. Patient also having cough. There was no complaint of shortness of breath. Patient was having decreased appetite and wants to the patient also confused. They also noticed that he was having some blood in his urine over the last couple of days. There was no complaint of chest pain. There is no complaint of palpitation. Over the last 3 days patient has become very weak and is unable to ambulate. Because of generalized weakness, patient was brought to ER. initial lab work done in the ER showed WB 16.5, hemoglobin 14.6, platelet count 513, sodium 144, potassium 4.9, BUN 35, creatinine 1.21, glucose 118, magnesium 2.2, bilirubin 2.1, AST 117, ALT 54, troponin 0.035 , bilirubin 2.1, AST 117, ALT 54, Influenza A not detected Influenza B not detected RSV not detected COVID-19 not detected UA done showed small amount of blood EKG done in the ER showed heart rate of 103, paced rhythm Chest x-ray done in the ER showed cardiomegaly without acute pulmonary Patient admitted to internal medicine service 10/26. Patient seen and examined. Blood work done showed WBC 15.5, hemoglobin 9.5, platelet count 548, sodium 137, potassium 4.2, BUN 40, creatinine 1.25. Troponin remained flat. 10/27/2024 Patient is seen and evaluated in follow-up today has been evaluated by cardiology and NSTEMI ruled out recommending outpatient follow-up and has signed off of the case. Patient with an elevated white count with no fever although is having cough and underwent modified barium swallow showing that patient is aspirating. Patient has likely been aspirating for quite some time and re commends chin tuck and thin liquids. Strongly recommend aspiration precautions with supervision with meals and head of the bed elevated 30 to 45 degrees at all times. 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 Patient is extremely weak and somewhat confused on exam. Will initiate Zosyn, obtain cultures including sputum cultures and procalcitonin and also consult infectious disease with concerns of possible aspiration pneumonia. Repeat chest x-ray in a.m. 10/28/2024 Patient is evaluated today in follow up on the medical floor. Echocardiogram done reveals EF 60-65% with mild and moderate MS. Patient underwent barium swallow which reveals aspiration with thin and nectar thick substances which improves with chin tuck method. Chest xray this AM negative. White blood cell count 19. LFTs remain elevated. Procalcitonin level 0.26. 10/29/2024 Patient evaluated today in follow up on the stepdown unit and can be downgraded to medical/surgical. Patient tolerating diet. He is more awake and alert today. He continues to report not having any abdominal discomfort. General surgery did recommend cholecystectomy when medical stable however after further discussion with patient he states he has known gallstones for many years and does not want to explore surgical options at this time as he is asymptomatic. Blood culture negative so far. Continues on IV zosyn. WBC down to 17.7 and will repeat labs again in the AM. Patient is pending discharge to [facility] in [place]. 10/30/2024 Was evaluated in follow-up on the medical floor. He has no acute complaints at this time. Currently tolerating a dysphagia chopped diet. He continues with strict aspiration precautions and chin tuck with all liquids. His white blood cell count remains elevated at 17.5. LFTs remain elevated. Is not having any abdominal discomfort. 10/31/2024 Patient evaluated in follow up on the medical floor. He is resting comfortably in bed. He has been urinating without difficulty bowels have moved. He is not having any abdominal pain currently. LFTs are improving. General surgery following and patient has declined cholecystectomy and will follow up outpatient with general surgery. WBC remains elevated and up to 18 today. Was transitioned to IV aztreonam and oral flagyl as he developed a rash while on zosyn. ID following and feels this may be gallbladder related. 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 When medically stable plans for discharge to [facility]. 11/01/2024 Patient is seen in follow up today with multiple consultations following. Patient maintained on IV antibiotics and will transition to oral antibiotics on discharge. Plan is for a [facility] [place] and apparently insurance was denied awaiting updated PT/OT therapy notes after peer to peer was performed and will undergo appeal process. Patient is significantly weak with prolonged hospitalization and would benefit from ECF for continued strength and mobility prior to returning home as patient was independent and still working and driving. Patient is afebrile and white count is trending down. Will follow-up on repeat labs. REVIEW OF SYSTEMS: CONSTITUTIONAL: No fever, no malaise,. CARDIOVASCULAR: No chest pain, no palpitations, no syncope. PULMONARY: No shortness of breath, reports of occasional cough GASTROINTESTINAL: No diarrhea, no nausea, no vomiting, no abdominal pain. NEUROLOGICAL: No headaches, reports of feeling generally weakness PHYSICAL EXAMINATION: GENERAL: The patient is alert and oriented x 3, ill looking, elderly appearing, thin built HEENT: Pupils are round and equally reacting to light. EOMI. No scleral icterus. No conjunctival pallor. Normocephalic, atraumatic. No pharyngeal erythema. No thyromegaly. CARDIOVASCULAR: S1 and S2 present. No murmurs, rubs, or gallops. PULMONARY: Diminished breath sounds bilaterally with some faint expiratory wheezing, no crackles noted. ABDOMEN: Soft, thin, nontender, nondistended, normoactive bowel sounds. No palpable organomegaly. Large periumbical abdominal hernia. MUSCULOSKELETAL: No joint swelling or deformity. EXTREMITIES: No cyanosis, clubbing, or pedal edema. NEUROLOGICAL: Gross neurological examination did not reveal any focal deficits. Diffusely weak SKIN: No rashes. Assessment: Generalized weakness Hematuria, improved Elevated LFTs with gallstones, patient would like to follow-up outpatient with general surgery regarding cholecystectomy elevated troponins, NSTEMI ruled out per cardiology Status post pacemaker placement secondary to complete heart block in 2019 Leukocytosis with concerns of possible aspiration pneumonia, trending down Aspiration noted on modified barium swallow Known abdominal hernia GI prophylaxis DVT prophylaxis Full code Plan: Troponins remain flat and evaluated by cardiology with NSTEMI rule out, signing off the case recommending outpatient follow-up [facility] was normal initially although patient is having increased white count and patient remains afebrile. Concerns for aspiration pneumonia and patient has been started on IV zosyn. White blood cell count slowly improving. Patient will transition to oral antibiotics on discharge for 10-day course per ID recommendations. Patient underwent modified barium swallow study showing some aspiration recommending neck tucking and thin liquids. Recommend aspiration precautions with supervision with meals and continue dysphagia diet Does not want to explore surgical options for the gallstones. PT/OT therapy following and recommending rehab and patient is agreeable. Patient has been accepted at [facility] and will require insurance authorization. Case management following. Peer to Peer was completed and insurance is awaiting updated pT notes. Per case management they have a denial letter and working on the appeal process which is pending at this time Patient had rash while on zosyn and was transitioned to IV aztreonam and oral flagyl. Repeat CBC in the AM as patient continues to have elevated WBC and concerns this may be gallbladder related. White count is trending down and will follow-up with repeat labs CRP was elevated 35.5 Discharge to [facility] when medically stable and currently awaiting appeal decision from insurance. Possible discharge in the next 24 to 48 hours The impression and plan of care has been dictated by Mikala Leung, Nurse Practitioner as directed. Dr. Lane MD I have performed a history and examination and MDM of this patient, discussed the same with the dictator, and agree with the dictator's assessment and plan as written ,documented as a scribe. Based on total visit time, I have performed more than 50% of the visit. Objective - Vital Signs Vital signs: Vital Signs Temp 97.6 F 11/01/24 06:45 Pulse 82 11/01/24 06:45 Resp 16 11/01/24 06:45 BP 106/68 11/01/24 06:45 Pulse Ox 100 11/01/24 06:45 FiO2 Intake & Output 10/31/24 11/01/24 11/01/24 18:59 06:59 18:59 Output Total 300 Balance -300 Output: Urine 300 Other: Voiding Method Urinal Urinal # Voids 3 1 # Bowel Movements 2 1 - Labs CBC & Chem 7: 11/01/24 02:44 11/01/24 02:44 Labs: Abnormal Lab Results - Last 24 Hours (Table) 10/31/24 10/31/24 11/01/24 Range/Units 03:25 09:14 02:44 WBC 18.27 H (4.50-10.00) X 10*3/uL RBC 3.72 L (4.40-5.60) X 10*6/uL Hgb 11.3 L (13.0-17.0) g/dL Hct 34.5 L (39.6-50.0) % Plt Count 493 H (140-440) X 10*3/uL Neutrophils # (Manual) 14.62 H (1.80-7.70) X 10*3/uL Monocytes # (Manual) 1.10 H (0.20-1.00) X 10*3/uL Eosinophils # (Manual) 0.37 H (0.04-0.35) X 10*3/uL NRBC/100 WBC Diff 0.12 H (0.00-0.01) X 10*3/uL Crenated Cell 2+ A (None Seen) Sodium 134 L (137-145) mmol/L Potassium 3.0 L (3.5-5.1) mmol/L Chloride 97 L (98-107) mmol/L Glucose 136 H (74-99) mg/dL Calcium 8.1 L 8.4 L (8.4-10.2) mg/dL AST 60 H (14-35) U/L ALT 65 H 62 H (4-49) U/L Alkaline Phosphatase 150 H 146 H (38-126) U/L Total Protein 5.8 L 5.8 L (6.3-8.2) g/dL Albumin 2.6 L 2.6 L (3.5-5.0) g/dL Albumin/Globulin Ratio 0.81 L (1.60-3.17) Ratio Microbiology - Last 24 Hours (Table) 10/28/24 08:28 Blood Culture - Preliminary Blood
[2024-11-02 08:48] LABS: ALT 46 U/L (10-49); AST 45 U/L (14-35); Albumin 2.5 g/dL (3.8-4.9); Albumin/Globulin Ratio 0.83 Ratio (1.60-3.17); Alkaline Phosphatase 141 U/L (41-126); BUN/Creat Ratio 19.89 Ratio (12.00-20.00); Blood Urea Nitrogen 17.9 mg/dL (9.0-27.0); Calcium 8.2 mg/dL (8.7-10.3); Chloride 105 mmol/L (96-109); Glucose 89 mg/dL (70-110); Potassium 4.1 mmol/L (3.5-5.5); Sodium 138 mmol/L (135-145); Total Bilirubin 0.3 mg/dL (0.3-1.2); Total Protein 5.5 g/dL (6.2-8.2)
[2024-11-02 09:31] LABS: Basophils # (M) 0 X 10*3/uL (0.00-0.10); Eosinophils # (M) 0.79 X 10*3/uL (0.04-0.35); HCT 33.6 % (39.6-50.0); HGB 10.8 g/dL (13.0-17.0); Lymphocytes # (M) 1.91 X 10*3/uL (0.90-5.00); MCH 29.6 pg (27.0-32.0); MCHC 32.1 g/dL (32.0-37.0); MCV 92.1 FL (80.0-97.0); Mean Platelet Volume 10.7 FL (9.5-12.2); Monocytes # (M) 1.59 X 10*3/uL (0.20-1.00); Myelocytes % 4 % (0-0); NRBC Per 100 WBC 0 X 10*3/uL (0.00-0.01); Neutrophils # (M) 10.64 X 10*3/uL (1.80-7.70); Neutrophils % (M) 67 %; Platelet Count 527 X 10*3/uL (140-440); Promyelocytes # (M) 0.32 k/uL (0); Promyelocytes % 2 %; RBC 3.65 X 10*6/uL (4.40-5.60); RDW 14.3 % (11.5-14.5); WBC 15.88 X 10*3/uL (4.50-10.00)
--- NOTE | 2024-11-02 12:57 | XR ---
EXAMINATION TYPE: XR hand complete RT DATE OF EXAM: 11/02/2024 12:32 PM COMPARISON: None. CLINICAL INDICATION: Male, 78 years old with history of swelling, pain TECHNIQUE: 3 view(s) obtained. FINDINGS: Very prominent soft tissue swelling is over the pad of the thumb and over the distal index finger. Th ere is dislocation of the proximal phalanx on the index finger metacarpal. Subluxation of the proxima l phalanx on the third digit is evident. Some milder subluxation may be of the proximal phalanx of fo urth digit. Diffuse soft tissue swelling is at the metacarpal phalangeal joint spaces. Degenerative c hanges and soft tissue swelling over the wrist are evident. Scapholunate disassociation appears to be present. There may be fusion of the distal interphalangeal joint space of the middle finger. IMPRESSION: 1. Advanced degenerative changes on right hand especially at the metacarpal phalangeal joint spaces and in the soft tissues of the thumb and index finger. 2. Degenerative changes are also noted within the rest with overlying soft tissue swelling. [facility], , 11/02/2024 12:55 PM
--- NOTE | 2024-11-02 13:08 | P.PN ---
Subjective Progress Note Date: 11/02/24 SURGICAL PROGRESS NOTE CHIEF COMPLAINT: Symptomatic cholelithiasis HISTORY OF PRESENT ILLNESS: Patient reports abdominal pain has resolved. He denies any nausea or vomiting. He is tolerating diet. Vital stable. WBC is up from 14-15. LFTs trending down PHYSICAL EXAM: VITAL SIGNS: Reviewed. GENERAL: Well-developed in no acute distress. ABDOMEN: Soft. No tenderness right upper quadrant with palpation NEUROLOGIC: Alert and oriented. Cranial nerves II through XII grossly intact. ASSESSMENT: 1. Symptomatic cholelithiasis with elevated LFTs. LFTs trending down 2. Aspiration pneumonia PLAN: -Patient's abdominal pain resolved. He is tolerating diet. Patient reporting that he is not interested at surgery at this time but would like to follow-up outpatient with surgeon. -Patient can be discharge from surgical standpoint with outpatient follow-up -Recommend laparoscopic cholecystectomy outpatient when medically stable Physician Senior Designer/Art Director note has been reviewed by physician. Signing provider agrees with the documented findings, assessment, and plan of care. Objective - Vital Signs Vital signs: Vital Signs Temp 97.8 F 11/02/24 07:17 Pulse 89 11/02/24 07:17 Resp 16 11/02/24 07:17 BP 103/64 11/02/24 07:17 Pulse Ox 97 11/02/24 07:17 FiO2 Intake & Output 11/01/24 11/02/24 11/02/24 18:59 06:59 18:59 Output Total 700 Balance -700 Output: Urine 700 Other: Voiding Method Urinal Urinal # Voids 2 # Bowel Movements 1 1 - Labs CBC & Chem 7: 11/02/24 05:54 11/02/24 03:52 Labs: Abnormal Lab Results - Last 24 Hours (Table) 11/02/24 11/02/24 Range/Units 03:52 05:54 WBC 15.88 H (4.50-10.00) X 10*3/uL RBC 3.65 L (4.40-5.60) X 10*6/uL Hgb 10.8 L (13.0-17.0) g/dL Hct 33.6 L (39.6-50.0) % Plt Count 527 H (140-440) X 10*3/uL Neutrophils # (Manual) 10.64 H (1.80-7.70) X 10*3/uL Monocytes # (Manual) 1.59 H (0.20-1.00) X 10*3/uL Eosinophils # (Manual) 0.79 H (0.04-0.35) X 10*3/uL Carbon Dioxide 21.0 L (21.6-31.8) mmol/L Calcium 8.2 L (8.7-10.3) mg/dL AST 45 H (14-35) U/L Alkaline Phosphatase 141 H (41-126) U/L Total Protein 5.5 L (6.2-8.2) g/dL Albumin 2.5 L (3.8-4.9) g/dL Albumin/Globulin Ratio 0.83 L (1.60-3.17) Ratio
[2024-11-02] MEDS: predniSONE 20 MG TAB PO SCH (14:49)
--- NOTE | 2024-11-02 22:47 | P.PN ---
Subjective Progress Note Date: 11/02/24 patient is 78-year-old gentleman with past medical history significant for hypothyroidism, hyperlipidemia presented the ER because of hematuria and generalized weakness. Most of the history is been taken from EMR according to which patient and patient has been sick for the last couple of weeks with u pper respiratory infection. Patient was having symptoms of nasal congestion and generalized weakness. Patient also having cough. There was no complaint of shortness of breath. Patient was having decreased appetite and wants to the patient also confused. They also noticed that he was having some blood in his urine over the last couple of days. There was no complaint of chest pain. There is no complaint of palpitation. Over the last 3 days patient has become very weak and is unable to ambulate. Because of generalized weakness, patient was brought to ER. initial lab work done in the ER showed WB 16.5, hemoglobin 14.6, platelet count 513, sodium 144, potassium 4.9, BUN 35, creatinine 1.21, glucose 118, magnesium 2.2, bilirubin 2.1, AST 117, ALT 54, troponin 0.035 , bilirubin 2.1, AST 117, ALT 54, Influenza A not detected Influenza B not detected RSV not detected COVID-19 not detected UA done showed small amount of blood EKG done in the ER showed heart rate of 103, paced rhythm Chest x-ray done in the ER showed cardiomegaly without acute pulmonary Patient admitted to internal medicine service 10/26. Patient seen and examined. Blood work done showed WBC 15.5, hemoglobin 9.5, platelet count 548, sodium 137, potassium 4.2, BUN 40, creatinine 1.25. Troponin remained flat. 10/27/2024 Patient is seen and evaluated in follow-up today has been evaluated by cardiology and NSTEMI ruled out recommending outpatient follow-up and has signed off of the case. Patient with an elevated white count with no fever although is having cough and underwent modified barium swallow showing that patient is aspirating. Patient has likely been aspirating for quite some time and recom mends chin tuck and thin liquids. Strongly recommend aspiration precautions with supervision with meals and head of the bed elevated 30 to 45 degrees at all times. 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 Patient is extremely weak and somewhat confused on exam. Will initiate Zosyn, obtain cultures including sputum cultures and procalcitonin and also consult infectious disease with concerns of possible aspiration pneumonia. Repeat chest x-ray in a.m. 10/28/2024 Patient is evaluated today in follow up on the medical floor. Echocardiogram done reveals EF 60-65% with mild and moderate MS. Patient underwent barium swallow which reveals aspiration with thin and nectar thick substances which improves with chin tuck method. Chest xray this AM negative. White blood cell c ount 19. LFTs remain elevated. Procalcitonin level 0.26. 10/29/2024 Patient evaluated today in follow up on the stepdown unit and can be downgraded to medical/surgical. Patient tolerating diet. He is more awake and alert today. He continues to report not having any abdominal discomfort. General surgery did recommend cholecystectomy when medical stable however after further discussion with patient he states he has known gallstones for many years and does not want to explore surgical options at this time as he is asymptomatic. Blood culture negative so far. Continues on IV zosyn. WBC down to 17.7 and will repeat labs again in the AM. Patient is pending discharge to [facility] in [place]. 10/30/2024 Was evaluated in follow-up on the medical floor. He has no acute complaints at this time. Currently tolerating a dysphagia chopped diet. He continues with strict aspiration precautions and chin tuck with all liquids. His white blood cell count remains elevated at 17.5. LFTs remain elevated. Is not having any abdominal discomfort. 10/31/2024 Patient evaluated in follow up on the medical floor. He is resting comfortably in bed. He has been urinating without difficulty bowels have moved. He is not having any abdominal pain currently. LFTs are improving. General surgery following and patient has declined cholecystectomy and will follow up outpatient with general surgery. WBC remains elevated and up to 18 today. Was transitioned to IV aztreonam and oral flagyl as he developed a rash while on zosyn. ID following and feels this may be gallbladder related. 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 When medically stable plans for discharge to [facility]. 11/01/2024 Patient is seen in follow up today with multiple consultations following. Pat ient maintained on IV antibiotics and will transition to oral antibiotics on discharge. Plan is for a [facility] and apparently insurance was denied awaiting updated PT/OT therapy notes after peer to peer was performed and will undergo appeal process. Patient is significantly weak with prolonged hospitalization and would benefit from ECF for continued strength and mobility prior to returning home as patient was independent and still working and driving. Patient is afebrile and white count is trending down. Will follow-up on repeat labs. 11/02/2024 Patient evaluated today in follow up on the medical floor. Patient noted to have significant erythema and swelling to the DIP joint on the index finger of the right hand. Patient does have history of gouty arthritis and oral prednisone BID has been ordered and awaiting evaluation by hand surgeon. Patient has received insurance authorization for DC to [facility] with plans for DC tomorrow pending recommendations of hand surgeon. Patient with no other acute complaints at this time. He is awake alert oriented. at the bedside and all questions were answered and updated on POC. White blood cell count today 15.88, hgb 10.8, sodium 138, potassium 4.1, BUN 17.9, creatinine 0.9. LFTs continue to improve. REVIEW OF SYSTEMS: CONSTITUTIONAL: No fever, no malaise,. CARDIOVASCULAR: No chest pain, no palpitations, no syncope. PULMONARY: No shortness of breath, reports of occasional cough GASTROINTESTINAL: No diarrhea, no nausea, no vomiting, no abdominal pain. NEUROLOGICAL: No headaches, reports of feeling generally weakness PHYSICAL EXAMINATION: GENERAL: The patient is alert and oriented x 3, ill looking, elderly appearing, thin built HEENT: Pupils are round and equally reacting to light. EOMI. No scleral icterus. No conjunctival pallor. Normocephalic, atraumatic. No pharyngeal erythema. No thyromegaly. CARDIOVASCULAR: S1 and S2 present. No murmurs, rubs, or gallops. PULMONARY: Diminished breath sounds bilaterally with some faint expiratory wheezing, no crackles noted. ABDOMEN: Soft, thin, nontender, nondistended, normoactive bowel sounds. No palpable organomegaly. Large periumbical abdominal hernia. MUSCULOSKELETAL: No joint swelling or deformity. EXTREMITIES: No cyanosis, clubbing, or pedal edema. NEUROLOGICAL: Gross neurological examination did not reveal any focal deficits. Diffusely weak SKIN: No rashes. right hand index finger with significant redness, swelling and arthritis changes to the DIP. 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 Concerns for aspiration pneumonia and patient has been started on IV zosyn. White blood cell count slowly improving. Patient will transition to oral antibiotics on discharge for 10-day course per ID recommendations. Patient underwent modified barium swallow study showing some aspiration recommending neck tucking and thin liquids. Recommend aspiration precautions with supervision with meals and continue dysphagia diet Does not want to explore surgical options for the gallstones. PT/OT therapy following and recommending rehab and patient is agreeable. Patient has been accepted at [facility] and insurance authorization has been obtained through the . Patient had rash while on zosyn and was transitioned to IV aztreonam and oral flagyl. Repeat CBC in the AM as patient continues to have elevated WBC and concerns this may be gallbladder related. White count is trending down and will follow-up with repeat labs CRP was elevated 35.5 Discharge to [facility] when medically stable and currently awaiting ap peal decision from insurance. Possible discharge in the next 24 to 48 hours Awaiting consultation with hand surgeon. Patient has been started on oral prednisone twice daily. The impression and plan of care has been dictated by Digna Roland Nurse Practitioner as directed. Dr. Lane MD I have performed a history and examination and MDM of this patient, discussed the same with the dictator, and agree with the dictator's assessment and plan as written ,documented as a scribe. Based on total visit time, I have performed more than 50% of the visit. Objective - Vital Signs Vital signs: Vital Signs Temp 97.6 F 11/02/24 13:57 Pulse 101 H 11/02/24 13:57 Resp 16 11/02/24 13:57 BP 124/77 11/02/24 13:57 Pulse Ox 100 11/02/24 13:57 FiO2 Intake & Output 11/02/24 11/02/24 11/03/24 06:59 18:59 06:59 Intake Total 680 Balance 680 Intake: Oral 680 Other: Voiding Method Urinal # Voids 2 4 # Bowel Movements 1 - Labs CBC & Chem 7: 11/02/24 05:54 11/02/24 03:52 Labs: Abnormal Lab Results - Last 24 Hours (Table) 11/02/24 11/02/24 Range/Units 03:52 05:54 WBC 15.88 H (4.50-10.00) X 10*3/uL RBC 3.65 L (4.40-5.60) X 10*6/uL Hgb 10.8 L (13.0-17.0) g/dL Hct 33.6 L (39.6-50.0) % Plt Count 527 H (140-440) X 10*3/uL Neutrophils # (Manual) 10.64 H (1.80-7.70) X 10*3/uL Monocytes # (Manual) 1.59 H (0.20-1.00) X 10*3/uL Eosinophils # (Manual) 0.79 H (0.04-0.35) X 10*3/uL Carbon Dioxide 21.0 L (21.6-31.8) mmol/L Calcium 8.2 L (8.7-10.3) mg/dL AST 45 H (14-35) U/L Alkaline Phosphatase 141 H (41-126) U/L Total Protein 5.5 L (6.2-8.2) g/dL Albumin 2.5 L (3.8-4.9) g/dL Albumin/Globulin Ratio 0.83 L (1.60-3.17) Ratio Microbiology - Last 24 Hours (Table) 10/28/24 08:28 Blood Culture - Final Blood Assessment and Plan Time with Patient: Less than 30
[2024-11-03 08:21] VITALS: TEMP 97.5
[2024-11-03 10:11] LABS: Basophils # (M) 0 X 10*3/uL (0.00-0.10); Eosinophils # (M) 0 X 10*3/uL (0.04-0.35); HCT 32.5 % (39.6-50.0); HGB 10.3 g/dL (13.0-17.0); Lymphocytes # (M) 0.81 X 10*3/uL (0.90-5.00); MCH 29.6 pg (27.0-32.0); MCHC 31.7 g/dL (32.0-37.0); MCV 93.4 FL (80.0-97.0); Mean Platelet Volume 10.8 FL (9.5-12.2); Metamyelocytes % 1 % (0-0); Myelocytes % 1 % (0-0); NRBC Per 100 WBC 0 X 10*3/uL (0.00-0.01); Neutrophils # (M) 18.56 X 10*3/uL (1.80-7.70); Neutrophils % (M) 92 %; Platelet Count 545 X 10*3/uL (140-440); RBC 3.48 X 10*6/uL (4.40-5.60); RDW 14.3 % (11.5-14.5); WBC 20.17 X 10*3/uL (4.50-10.00)
[2024-11-03] MEDS: IPRATROPIUM-ALBUTEROL 3 ML NEB INHALATION PRN (11:46)
--- NOTE | 2024-11-03 12:19 | P.PN ---
Subjective Progress Note Date: 11/02/24 Principal diagnosis: Reason for follow-up is leukocytosis Patient is a 78-year-old male with a past medical history significant for hyperlipidemia hypothyroidism, presenting to the hospital for evaluation of progressive weakness and decreased appetite workup did shows evidence of elevated white count ultrasound with a gallstone but did not mention any cholecystitis however he did have elevated liver enzymes and there was concern for possible aspiration pneumonitis prompted this consultation. On today's evaluation that is 11/02/2024,the patient denies any fever or any chills, patient is breathing comfortably on room air, the patient denies chest pain shortness of breath and no significant cough, patient denies abdominal pain, no nausea vomiting or diarrhea. Mention feeling better wants to go home. Patient white count is 15.88 creatinine 0.9 Objective - Vital Signs Vital signs: Vital Signs Temp 97.8 F 11/02/24 07:17 Pulse 91 11/02/24 13:53 Resp 16 11/02/24 13:53 BP 103/64 11/02/24 07:17 Pulse Ox 97 11/02/24 07:17 FiO2 Intake & Output 11/01/24 11/02/24 11/02/24 18:59 06:59 18:59 Output Total 700 Balance -700 Output: Urine 700 Other: Voiding Method Urinal Urinal # Voids 2 # Bowel Movements 1 1 - Exam GENERAL DESCRIPTION: An elderly male lying in bed in no distress RESPIRATORY SYSTEM: Unlabored breathing , decreased breath sounds at bases HEART: S1 S2 regular rate and rhythm , ABDOMEN: Soft , no tenderness EXTREMITIES: No edema feet - Labs CBC & Chem 7: 11/03/24 05:56 11/02/24 03:52 Labs: Abnormal Lab Results - Last 24 Hours (Table) 11/02/24 11/02/24 Range/Units 03:52 05:54 WBC 15.88 H (4.50-10.00) X 10*3/uL RBC 3.65 L (4.40-5.60) X 10*6/uL Hgb 10.8 L (13.0-17.0) g/dL Hct 33.6 L (39.6-50.0) % Plt Count 527 H (140-440) X 10*3/uL Neutrophils # (Manual) 10.64 H (1.80-7.70) X 10*3/uL Monocytes # (Manual) 1.59 H (0.20-1.00) X 10*3/uL Eosinophils # (Manual) 0.79 H (0.04-0.35) X 10*3/uL Carbon Dioxide 21.0 L (21.6-31.8) mmol/L Calcium 8.2 L (8.7-10.3) mg/dL AST 45 H (14-35) U/L Alkaline Phosphatase 141 H (41-126) U/L Total Protein 5.5 L (6.2-8.2) g/dL Albumin 2.5 L (3.8-4.9) g/dL Albumin/Globulin Ratio 0.83 L (1.60-3.17) Ratio Assessment and Plan (1) Leukocytosis Current Visit: Yes Status: Acute Code(s): D72.829 - ELEVATED WHITE BLOOD CELL COUNT, UNSPECIFIED SNOMED Code(s): 948122398 (2) Aspiration pneumonitis Current Visit: Yes Status: Acute Code(s): J69.0 - PNEUMONITIS DUE TO INHALATION OF FOOD AND VOMIT SNOMED Code(s): 574447687 (3) Cholecystitis Current Visit: Yes Status: Acute Code(s): K81.9 - CHOLECYSTITIS, UNSPECIFIED SNOMED Code(s): 79689169 Plan: 1patient presented to hospital l with generalized weakness no energy which is likely multifactorial patient did have abnormal swallow test however he did have 2 chest x-ray did not show any acute abnormality patient did have elevated liver enzymes and evidence of gallstone although ultrasound did not mention any features of cholecystitis however clinically think of elevated white count is more likely due to gallbladder than aspiration pneumonitis 2-patient has documented penicillin and cephalexin allergy however has tolerated Zosyn without any problem clinically doubt true penicillin allergy 3-General Surgery has seen the patient recommending cholecystectomy when stable 4-patient white count is trending up question to be steroid related as no evidence of any worsening infection 5patient will be treated Azactam and Flagyl, however will be able to finish therapy with oral Cipro and Flagyl on discharge Dictation was produced using [employer] dictation software. please excuse any grammatical, word or spelling errors. Time with Patient: Less than 30
--- NOTE | 2024-11-03 12:36 | P.PN ---
Subjective Progress Note Date: 11/03/24 SURGICAL PROGRESS NOTE CHIEF COMPLAINT: Symptomatic cholelithiasis HISTORY OF PRESENT ILLNESS: Patient reports abdominal pain has resolved. He denies any nausea or vomiting. He is tolerating diet. Vital stable. WBC is up from 15 to 20. LFTs trending down Patient seen and examined with Dr. Dunbar PHYSICAL EXAM: VITAL SIGNS: Reviewed. GENERAL: Well-developed in no acute distress. ABDOMEN: Soft. No tenderness right upper quadrant with palpation NEUROLOGIC: Alert and oriented. Cranial nerves II through XII grossly intact. ASSESSMENT: 1. Symptomatic cholelithiasis with elevated LFTs. LFTs trending down 2. Aspiration pneumonia PLAN: -Laparoscopic cholecystectomy recommended. Noted that the patient's white count is increasing. Patient is not interested in surgery at this time. His pain has improved. He is tolerating diet. Recommend follow-up outpatient. Physician Corporate Security Manager note has been reviewed by physician. Signing provider agrees with the documented findings, assessment, and plan of care. Objective - Vital Signs Vital signs: Vital Signs Temp 97.5 F L 11/03/24 08:20 Pulse 84 11/03/24 11:57 Resp 17 11/03/24 08:20 BP 116/73 11/03/24 08:20 Pulse Ox 98 11/03/24 07:19 FiO2 Intake & Output 11/02/24 11/03/24 11/03/24 18:59 06:59 18:59 Intake Total 680 Balance 680 Intake: Oral 680 Other: # Voids 4 2 - Labs CBC & Chem 7: 11/03/24 05:56 11/02/24 03:52 Labs: Abnormal Lab Results - Last 24 Hours (Table) 11/01/24 11/02/24 11/03/24 Range/Units 02:44 05:54 05:56 WBC 20.17 H (4.50-10.00) X 10*3/uL RBC 3.48 L (4.40-5.60) X 10*6/uL Hgb 10.3 L (13.0-17.0) g/dL Hct 32.5 L (39.6-50.0) % MCHC 31.7 L (32.0-37.0) g/dL Plt Count 545 H (140-440) X 10*3/uL Neutrophils # (Manual) 18.56 H (1.80-7.70) X 10*3/uL Lymphocytes # (Manual) 0.81 L (0.90-5.00) X 10*3/uL Eosinophils # (Manual) 0 L (0.04-0.35) X 10*3/uL Promyelocytes # (Man) 0.45 H 0.32 H (0) k/uL Microbiology - Last 24 Hours (Table) 10/28/24 08:28 Blood Culture - Final Blood
--- NOTE | 2024-11-03 14:21 | P.PN ---
Subjective Progress Note Date: 11/03/24 Principal diagnosis: Reason for follow-up is leukocytosis Patient is a 78-year-old male with a past medical history significant for hyperlipidemia hypothyroidism, presenting to the hospital for evaluation of progressive weakness and decreased appetite workup did shows evidence of elevated white count ultrasound with a gallstone but did not mention any cholecystitis however he did have elevated liver enzymes and there was concern for possible aspiration pneumonitis prompted this consultation. On today's evaluation that is 11/03/2024,the patient remains to be afebrile, patient is on room air not requiring supplemental oxygen and denies any shortness of breath no chest pain or cough.Patient denies having any nausea or vomiting, no abdominal pain and no diarrhea has been reported. Patient white count is up to 20.17 Objective - Vital Signs Vital signs: Vital Signs Temp 97.5 F L 11/03/24 08:20 Pulse 84 11/03/24 11:57 Resp 17 11/03/24 08:20 BP 116/73 11/03/24 08:20 Pulse Ox 98 11/03/24 07:19 FiO2 Intake & Output 11/02/24 11/03/24 11/03/24 18:59 06:59 18:59 Intake Total 680 Balance 680 Intake: Oral 680 Other: # Voids 4 2 - Exam GENERAL DESCRIPTION: An elderly male lying in bed in no distress RESPIRATORY SYSTEM: Unlabored breathing , decreased breath sounds at bases HEART: S1 S2 regular rate and rhythm , ABDOMEN: Soft , no tenderness EXTREMITIES: No edema feet - Labs CBC & Chem 7: 11/03/24 05:56 11/02/24 03:52 Labs: Abnormal Lab Results - Last 24 Hours (Table) 11/01/24 11/02/24 11/03/24 Range/Units 02:44 05:54 05:56 WBC 20.17 H (4.50-10.00) X 10*3/uL RBC 3.48 L (4.40-5.60) X 10*6/uL Hgb 10.3 L (13.0-17.0) g/dL Hct 32.5 L (39.6-50.0) % MCHC 31.7 L (32.0-37.0) g/dL Plt Count 545 H (140-440) X 10*3/uL Neutrophils # (Manual) 18.56 H (1.80-7.70) X 10*3/uL Lymphocytes # (Manual) 0.81 L (0.90-5.00) X 10*3/uL Eosinophils # (Manual) 0 L (0.04-0.35) X 10*3/uL Promyelocytes # (Man) 0.45 H 0.32 H (0) k/uL Microbiology - Last 24 Hours (Table) 10/28/24 08:28 Blood Culture - Final Blood Assessment and Plan (1) Leukocytosis Current Visit: Yes Status: Acute Code(s): D72.829 - ELEVATED WHITE BLOOD CELL COUNT, UNSPECIFIED SNOMED Code(s): 495687436 (2) Aspiration pneumonitis Current Visit: Yes Status: Acute Code(s): J69.0 - PNEUMONITIS DUE TO INHALATION OF FOOD AND VOMIT SNOMED Code(s): 030476128 (3) Cholecystitis Current Visit: Yes Status: Acute Code(s): K81.9 - CHOLECYSTITIS, UNSPECIFIED SNOMED Code(s): 35010809 Plan: 1patient presented to hospital l with generalized weakness no energy which is likely multifactorial patient did have abnormal swallow test however he did have 2 chest x-ray did not show any acute abnormality patient did have elevated liver enzymes and evidence of gallstone although ultrasound did not mention any features of cholecystitis however clinically think of elevated white count is more likely due to gallbladder than aspiration pneumonitis 2-patient has documented penicillin and cephalexin allergy however has tolerated Zosyn without any problem clinically doubt true penicillin allergy 3-General Surgery has seen the patient recommending cholecystectomy when stable 4-patient white count is trending up likely related steroid, as no evidence of a ny worsening infection 5patient to continue Azactam and Flagyl while inpatient, however will be able to finish therapy with oral Cipro and Flagyl on discharge Dictation was produced using [employer] dictation software. please excuse any grammatical, word or spelling errors. Time with Patient: Less than 30
[2024-11-03 14:41] VITALS: BP 108/67; PULSE 90; RESP 16
[2024-11-03 14:45] VITALS: BMI 22.6
--- NOTE | 2024-11-03 14:49 | P.DS ---
Providers Date of admission: 10/27/24 13:51 Expected date of discharge: 11/03/24 Attending physician: Keyon Luis Consults: 10/25/24 10:11 Consult Physician Routine Consulting Provider: Alexander Fajardo Consult Reason/Comments: Elevated troponin Do you want consulting provider notified?: Yes 10/28/24 07:32 Consult Physician Urgent Consulting Provider: Rachelle Hunt Consult Reason/Comments: asp pneumonia?, suspected Do you want consulting provider notified?: Yes 10/28/24 17:08 Consult Physician Routine Consulting Provider: Shaw Dunbar Consult Reason/Comments: gallstones elevated LFTs Do you want consulting provider notified?: Yes 11/02/24 13:10 Consult Physician Routine Consulting Provider: Narda Castro Consult Reason/Comments: right finger gouty arthritis, swollen finger. looks infected. 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 Patient will follow-up with Dr. Hinson in the outpatient setting upon discharge. Patient is to continue with antibiotics per ID recommendations along with prednisone taper and outpatient follow-up with infectious disease, general surgery, orthopedics as needed. Total time taken is greater than 35 minutes. Hospital course This is a 78year-old male who was recently admitted with generalized weakness with concerns of aspiration and altered mentation. Patient mentation is significantly improved and back to baseline and was being seen by multiple consultations including general surgery as patient was noted to have elevated LFTs with gallstones recommending cholecystectomy. Patient would like to follow-up outpatient and is not having any pain or discomfort with eating. Patient with concerns of aspiration pneumonia and underwent modified barium swallow showing some mild aspiration and was instructed to continue with chin tucks and thin liquids. Recommend aspiration precautions with head of the bed elevated 30 to 45 degrees at all times and supervision with meals. Patient was evaluated by orthopedics as patient is having a gout flareup of the hands and was started on steroids showing some improvements recommending continuing a steroid taper with outpatient follow-up. No plans for surgical intervention at this time. Patient with significant weakness evaluated by physical therapy recommending rehab and patient and family are agreeable. Patient was accepted at [facility] initially insurance denying the need for long term and underwent peer to peer as well as appeal process and was approved for ECF. Patient has been cleared by consultations. Please refer to consultation notes for further HPI. Currently no reports of chest pain, shortness of breath, or palpitations. Patient is afebrile. No reports of nausea or vomiting and patient is tolerating diet. Patient will be discharged to [facility] today. Physical exam: Gen: This is a 78-year-old male who is awake, alert and oriented x 3, well- developed, well-nourished, elderly appearing HEENT: Head is atraumatic, normocephalic. Pupils equal, round. Sclerae is anicteric. NECK: Supple. No JVD. No lymphadenopathy. No thyromegaly. LUNGS: Diminished breath sounds bilaterally otherwise clear to auscultation. No wheezes or rhonchi. No intercostal retractions. HEART: Regular rate and rhythm. No murmur. ABDOMEN: Soft. Thin. Bowel sounds are present. No masses. No tenderness. EXTREMITIES: No pedal edema. No calf tenderness. NEUROLOGICAL: Patient is awake, alert and oriented x3. Cranial nerves 2 through 12 are grossly intact. Diffusely weak Please refer to medication reconciliation sheet for a list of medications. The impression and plan of care has been dictated by Nurse Radha Slater titioner as directed. Dr. Lane MD I have performed a history and examination and MDM of this patient, discussed the same with the dictator, and agree with the dictator's assessment and plan as written ,documented as a scribe. Based on total visit time, I have performed more than 50% of the visit. Patient Condition at Discharge: Stable Plan - Discharge Summary Discharge Rx Participant: No New Discharge Prescriptions: New Ipratropium-Albuterol Nebulize [Duoneb 0.5 mg-3 mg/3 ml Soln] 3 ml INHALATION RT-QID PRN each PRN Reason: Shortness Of Breath Or Wheezing Metoprolol Succinate (ER) [Toprol XL] 25 mg PO DAILY tab Acetaminophen Tab [Tylenol] 650 mg PO Q6HR PRN tab PRN Reason: Mild Pain Or Fever > 100.5 Hydrocortisone Cream [Hydrocortisone 1% Cream] 1 applic TOPICAL BID PRN each PRN Reason: Skin Irritation Benzocaine/Menthol Lozeng [Cepacol lozenge] 1 each MUCOUS MEM Q4HR PRN lozenge PRN Reason: Sore Throat Ciprofloxacin HCl [Cipro] 500 mg PO Q12HR 10 Days #20 tab Docusate [Colace] 100 mg PO BID cap metroNIDAZOLE [Flagyl] 500 mg PO TID 10 Days #30 tab Pantoprazole [Protonix] 40 mg PO DAILY #30 tab Calamine/Zinc Oxide Lotion [Calamine Lotion] 1 applic TOPICAL BID PRN each PRN Reason: Skin Irritation predniSONE [Deltasone] 20 mg PO BID tab QUEtiapine [SEROquel] 12.5 mg PO HS PRN tab PRN Reason: Agitation Continue Levothyroxine Sodium [Synthroid] 100 mcg PO DAILY@0800 tab Apixaban [Eliquis] 5 mg PO BID Bumetanide [BUMEX] 1 mg PO PC-SUPPER Discontinued Bumetanide [BUMEX] 2 mg PO DAILY@0800 Discharge Medication List Levothyroxine Sodium [Synthroid] 100 mcg PO DAILY@0800 tab 10/01/20 [Rx] Apixaban [Eliquis] 5 mg PO BID 10/25/24 [History] Bumetanide [BUMEX] 1 mg PO PC-SUPPER 10/25/24 [History] Acetaminophen Tab [Tylenol] 650 mg PO Q6HR PRN tab 11/02/24 [Rx] Benzocaine/Menthol Lozeng [Cepacol lozenge] 1 each MUCOUS MEM Q4HR PRN lozenge 11/02/24 [Rx] Ciprofloxacin HCl [Cipro] 500 mg PO Q12HR 10 Days #20 tab 11/02/24 [Rx] Docusate [Colace] 100 mg PO BID cap 11/02/24 [Rx] Ipratropium-Albuterol Nebulize [Duoneb 0.5 mg-3 mg/3 ml Soln] 3 ml INHALATION RT-QID PRN each 11/02/24 [Rx] Metoprolol Succinate (ER) [Toprol XL] 25 mg PO DAILY tab 11/02/24 [Rx] Pantoprazole [Protonix] 40 mg PO DAILY #30 tab 11/02/24 [Rx] metroNIDAZOLE [Flagyl] 500 mg PO TID 10 Days #30 tab 11/02/24 [Rx] Calamine/Zinc Oxide Lotion [Calamine Lotion] 1 applic TOPICAL BID PRN each 11/03/24 [Rx] Hydrocortisone Cream [Hydrocortisone 1% Cream] 1 applic TOPICAL BID PRN each 11/03/24 [Rx] QUEtiapine [SEROquel] 12.5 mg PO HS PRN tab 11/03/24 [Rx] predniSONE [Deltasone] 20 mg PO BID tab 11/03/24 [Rx] Follow up Appointment(s)/Referral(s): Breanna Bean MD [Primary Care Provider] - 1-2 days Leland Varner MD [STAFF PHYSICIAN] - 2 Weeks (Patient may follow-up with Dr. Leland Varner at [facility] in 2-3 weeks following discharge. ) Ryan Edmonds DO [STAFF PHYSICIAN] - 2 Weeks Rachelle Hunt MD [STAFF PHYSICIAN] - 1 Week Shaw Dunbar MD [STAFF PHYSICIAN] - 1 Week Ambulatory/Diagnostic Orders: Basic Metabolic Panel [LAB.AMB] Location: None Selected Complete Blood Count w/diff [LAB.AMB] Time Frame: 3 Days, Location: None Selected Activity/Diet/Wound Care/Special Instructions: Patient is going to [facility] Activity as tolerated Continue antibiotics as prescribed Continue prednisone taper including 20 mg twice daily for 4 days, then 10 mg twice daily for 4 days in regards to gout flareup Follow-up with general surgery outpatient once stable to discuss possible gallbladder removal Continue Ensure supplements 3 times daily between meals Follow-up with primary care provider on discharge Discharge Disposition: TRANSFER TO SNF/ECF
--- NOTE | 2024-11-04 13:17 | P.CNOR ---
History of Present Illness - [facility] Consult date: 11/03/24 Requesting physician: Digna Roland Consult reason: other History of present illness: Patient is a very pleasant 78-year-old male who is seen examined at the bedside for further evaluation of his right index finger. Patient states he was admitted on 10/24/2024 for hematuria and generalized weakness. During his admission over the past 4 days, he has had an exacerbation of gouty arthritis into his right DIP joint. He thinks he may have bumped it. He states it was large and firm but has had significant improvement after being placed on prednisone. He continues to be significantly large but has been softening. He is not experiencing any significant pain. There were some plans for him to discharge today to rehabilitation facility to [facility] if cleared from an orthopedic standpoint. He has no other complaints at the bedside. He has continued to be seen by multiple medical providers during his admission. Past Medical History Past Medical History: Hyperlipidemia, Thyroid Disorder Additional Past Medical History / Comment(s): ventral hernia History of Any Multi-Drug Resistant Organisms: None Reported Past Surgical History: Unable to Obtain, Pacemaker Additional Past Surgical History / Comment(s): abd, 1/2 stomach removed, peg tube Past Anesthesia/Blood Transfusion Reactions: Unable to Obtain Type of Cardiac Device: Permanent Pacemaker Device Placement Date:: unknown Past Psychological History: No Psychological Hx Reported Smoking Status: Never smoker Past Alcohol Use History: None Reported Past Drug Use History: None Reported Medications and Allergies Home Medications Medication Instructions Recorded Confirmed Type Levothyroxine Sodium [Synthroid] 100 mcg PO DAILY@0800 tab 10/01/20 10/25/24 Rx Apixaban [Eliquis] 5 mg PO BID 10/25/24 10/25/24 History Bumetanide [BUMEX] 1 mg PO PC-SUPPER 10/25/24 10/25/24 History Acetaminophen Tab [Tylenol] 650 mg PO Q6HR PRN tab 11/02/24 Rx Benzocaine/Menthol Lozeng [Cepacol 1 each MUCOUS MEM Q4HR PRN lozenge 11/02/24 Rx lozenge] Ciprofloxacin HCl [Cipro] 500 mg PO Q12HR 10 Days #20 tab 11/02/24 Rx Docusate [Colace] 100 mg PO BID cap 11/02/24 Rx Ipratropium-Albuterol Nebulize 3 ml INHALATION RT-QID PRN each 11/02/24 Rx [Duoneb 0.5 mg-3 mg/3 ml Soln] Metoprolol Succinate (ER) [Toprol 25 mg PO DAILY tab 11/02/24 Rx XL] Pantoprazole [Protonix] 40 mg PO DAILY #30 tab 11/02/24 Rx metroNIDAZOLE [Flagyl] 500 mg PO TID 10 Days #30 tab 11/02/24 Rx Calamine/Zinc Oxide Lotion 1 applic TOPICAL BID PRN each 11/03/24 Rx [Calamine Lotion] Hydrocortisone Cream 1 applic TOPICAL BID PRN each 11/03/24 Rx [Hydrocortisone 1% Cream] QUEtiapine [SEROquel] 12.5 mg PO HS PRN tab 11/03/24 Rx predniSONE [Deltasone] 20 mg PO BID tab 11/03/24 Rx Allergies Allergy/AdvReac Type Severity Reaction Status Date / Time cephalexin [From Keflex] Allergy Rash/Hives Verified 10/25/24 07:41 Penicillins Allergy Anaphylaxis Verified 10/25/24 07:41 Physical Examination Physical Exam: Patient is awake, alert, and oriented 3 Vital signs stable Good chest excursion with deep inspiration and expiration Evidence of significant gouty arthritis at the right DIP joint of the index finger Finger significantly swollen at the joint but is soft to palpation No pain with palpation over the right index finger Evidence of some gouty arthritis at the right thumb Patient is able to perform some range of motion of his right index finger No pain with palpation over the right hand Results Pertinent studies: X-ray of the right hand taken on 11/02/2024: Advanced degenerative changes at the right hand especially at the metacarpal phalangeal joint and in the soft tissues of the right thumb and right index finger - Labs Labs: Abnormal Lab Results - Last 24 Hours (Table) 11/01/24 11/02/24 11/03/24 Range/Units 02:44 05:54 05:56 WBC 20.17 H (4.50-10.00) X 10*3/uL RBC 3.48 L (4.40-5.60) X 10*6/uL Hgb 10.3 L (13.0-17.0) g/dL Hct 32.5 L (39.6-50.0) % MCHC 31.7 L (32.0-37.0) g/dL Plt Count 545 H (140-440) X 10*3/uL Neutrophils # (Manual) 18.56 H (1.80-7.70) X 10*3/uL Lymphocytes # (Manual) 0.81 L (0.90-5.00) X 10*3/uL Eosinophils # (Manual) 0 L (0.04-0.35) X 10*3/uL Promyelocytes # (Man) 0.45 H 0.32 H (0) k/uL Microbiology - Last 24 Hours (Table) 10/28/24 08:28 Blood Culture - Final Blood H & H 10/24/24 10/26/24 10/27/24 Range/Units 13:25 06:30 10:12 Hgb 14.6 11.5 L D 11.8 L (13.0-17.5) gm/dL Hct 44.9 35.2 L 36.2 L (39.0-53.0) % 10/28/24 10/29/24 10/30/24 Range/Units 06:18 06:26 03:49 Hgb 11.6 L 10.7 L 10.5 L (13.0-17.5) gm/dL Hct 34.8 L 33.2 L 32.4 L (39.0-53.0) % 10/31/24 11/01/24 11/02/24 Range/Units 03:25 02:44 05:54 Hgb 11.3 L 10.7 L 10.8 L (13.0-17.5) gm/dL Hct 34.5 L 34.5 L 33.6 L (39.0-53.0) % 11/03/24 Range/Units 05:56 Hgb 10.3 L (13.0-17.5) gm/dL Hct 32.5 L (39.0-53.0) % Coagulation 10/24/24 Range/Units 13:25 INR 1.0 (<1.2) Result Diagrams: 11/03/24 05:56 11/02/24 03:52 Assessment and Plan Assessment: Assessment: Gouty arthritis of the right index finger and right thumb, with improvement since starting prednisone 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 Patient states he was admitted on 10/24/2024 for hematuria and generalized weakness. During his admission over the past 4 days, he has had an exacerbation of gouty arthritis into his right DIP joint. He thinks he may have bumped it. He states it was large and firm but has had significant improvement after being placed on prednisone. He continues to be significantly large but has been softening. He is not experiencing any significant pain. Overall, he remains significantly swollen but feels it has had improvement with the steroid medication. Patient has been discussed in detail with Dr. Leland Varner. His right index finger does not appear to be infected. We are currently, we feel he should continue with conservative treatment given his improvement with steroid medication. He may be discharged on a prednisone taper. We would plan to have him follow-up in the outpatient setting in approximately 2 weeks for further evaluation. Patient may follow-up with Leland Varner at [facility] in 2 weeks following discharge. Patient may be discharged from an orthopedic standpoint. 2. Patient will continue be seen exam by multiple medical providers for his other medical diagnoses. I agree with the above history and physical exam as detailed, depending on the skin integrity at the time of future exams this will likely decompress spontaneously at which time local wound care will likely yield a good and functional outcome of the finger. We will discuss further treatment in the office but should this happen in the interim, keeping the wound clean and dry will aid in the healing process. Patient if not alread should be evaluated by his PCP for initiation of gout managment treatments. Time with Patient: Greater than 30 (Including obtaining history, physical examination, reviewing of imaging, and dictation.)
--- NOTE | 2024-11-07 16:50 | CDI ---
Documentation Clarification Form Date: 11/07/2024 04:27:16 PM From: Martha Myers RN, CCDS Email: [email or web address] Admit Date: 10/27/2024 01:51:00 PM Patient Name: Trent Sheehan Visit Number: [id number] Discharge Date: 11/03/2024 04:38:00 PM ATTENTION: The Clinical Documentation Specialists (CDI) and [facility] Coding Staff appreciate your assistance in clarifying documentation. Please respond to the clarification below the line at the bottom and electronically sign. The CDI & [facility] Coding staff will review the response and follow-up if needed. Please note: Queries are made part of the Legal Health Record. If you have any questions, please contact the author of this message via ITS. Doctor Maki Sherman The patient had tachycardia, leukocytosis, possible aspiration pneumonia and gallstones. Based on this information and the findings below, is there an additional diagnosis that is clinically appropriate for this patient? History/Risk Factors: Hypothyroidism, HTN. Presented with URI symptoms, weakness and confusion. Admitted with leukocytosis with concerns of possible aspiration pneumonia and gallstones. Clinical Indicators: 10/24-11/03 WBC: 16.5-18.7-15.8-20.17 10/27 AST 225; ALT 119; ALP 182 10/25 CRP: 35.5 10/24-11/02 Cr: 1.21-1.25-1.2-0.9 10/25 Vital signs: Temp 99.7 HR 103 10/27 Vital signs: HR 101 10/25 ABD U/S: gallstones 10/27 Barium swallow: Silent aspiration with thin and nectar liquid consistencies 11/03 ID: "patient did have abnormal swallow test, however he did have 2 chest x- rays that did not show any acute abnormality. Did have elevated liver enzymes and evidence of gallstones.Clinically think elevated white count is more likely due to gallbladder than aspiration pneumonitis." 11/03 Discharge summary: "Patient mentation is significantly improved and back to baseline. Leukocytosis with concerns of possible aspiration pneumonia, trending down. Aspiration noted on modified barium swallow." Treatment: Antibiotics: IV Zosyn 3.375gm Q8H 10/28-10/30; IV Aztreonam 2gm Q8H 10/31-11/03 IV: 0.9 NS @75mL/hr 10/31-11/01 Is there an additional diagnosis that is clinically appropriate for this patient? [ x ] Sepsis, present on admission [ ] No additional diagnosis/not clinically significant [ ] Other, please specify [ ] Unable to determine SIRS Criteria: 2 or more of the following may indicate SIRS Temperature < 96.8F (36C) or > 101.0F (38.3C) Heart Rate > 90 bpm Respiratory Rate > 20 breaths/min or PaCO2 < 32 mmHg White Blood Cell Count > 12,000 or < 4,000 cells/mm3 or > 10% bands MTDD
== END 2024-11-03 16:38 | DRG 871 ==
LOC: EC 12:03 → 3SCARD 18:03 → OBSVTOIN 10-27 13:51 → 4SSUR 10-29 17:44
PROVIDERS: ADMIT Hospitalist; ATTEND Hospitalist
PROC: F00 Physical Rehabilitation and Diagnostic Audiology, Rehabilitation, Speech Assessment (ICD-10-PCS; principal; 2024-10-27)
DX: A41.9 Sepsis, unspecified organism (principal); G93.41 Metabolic encephalopathy; J69.0 Pneumonitis due to inhalation of food and vomit; I44.2 Atrioventricular block, complete; E86.0 Dehydration; E03.9 Hypothyroidism, unspecified; I48.0 Paroxysmal atrial fibrillation; I35.0 Nonrheumatic aortic (valve) stenosis; I10 Essential (primary) hypertension; Z11.52 Encounter for screening for COVID-19; K80.20 Calculus of gallbladder without cholecystitis without obstruction; R79.89 Other specified abnormal findings of blood chemistry; Z79.01 Long term (current) use of anticoagulants; M19.041 Primary osteoarthritis, right hand; R53.1 Weakness; R31.9 Hematuria, unspecified; M10.9 Gout, unspecified; K46.9 Unspecified abdominal hernia without obstruction or gangrene; E78.5 Hyperlipidemia, unspecified; R74.01 Elevation of levels of liver transaminase levels; I25.2 Old myocardial infarction; Z79.890 Hormone replacement therapy; Z79.899 Other long term (current) drug therapy; Z87.01 Personal history of pneumonia (recurrent); Z95.0 Presence of cardiac pacemaker; Z88.1 Allergy status to other antibiotic agents; Z88.0 Allergy status to penicillin
CPT/HCPCS: 36415; 71045; 71046; 74230; 76705; 76770; 80053; 81001; 82140; 83735; 84132; 84145; 84484; 84550; 85025; 85610; 85652; 85730; 86140; 87040; 87636; 93005; 93306; 94640; 99285